=== PATIENT | female | born 1945 | race Caucasian/White ===

== ENCOUNTER → 2018-03-24 01:41 | Outpatient (CLI) | payer MEDICARE, MEDICAID, SELFPAY ==
--- NOTE | 2018-03-24 14:33 | DI.REPORT_ITS ---
SYMPTOMS/DIAGNOSIS: RT KNEE PAIN, ? MENISCUS TEAR MRI OF THE RIGHT KNEE: Comparison is made with plain films dated . Fat suppressed T 2 axial, proton density and fat suppressed T 2 sagittal and coronal and proton density oblique sagittal sequences were performed. The cruciate ligaments appear intact. There is some fluid around the lateral collateral ligaments but no evidence of a tear. The medial collateral ligament appears intact. There is some fluid anterior to the patellar tendon but no evidence of a tendon abnormality. There is a small joint effusion. The medial meniscus shows mild degenerative signal changes. There is abnormal high signal in the posterior horn and body of the lateral meniscus. A portion of the meniscus is not seen. There is an area of cartilage thinning and focal area of high signal in the lateral tibial plateau which may indicate a bone contusion vs degenerative change. No high signal is seen in the lateral femoral condyle. There is a small popliteal cyst. IMPRESSION: Tear of the posterior horn and body of the lateral meniscus. Probable focal bone contusion of the lateral tibial plateau.
== END ==
PROVIDERS: PCP Family Medicine; Visit Provider Orthopaedic Surgery
DX: M25.561 Pain in right knee (principal); S83.281A Other tear of lateral meniscus, current injury, right knee, initial encounter
CPT/HCPCS: 73721

== ENCOUNTER → 2018-04-07 14:30 | Outpatient (CLI) | payer MEDICARE, MEDICAID, SELFPAY | PROVIDERS: PCP Family Medicine; Visit Provider Psychiatry & Neurology Neurology | DX: G43.009 Migraine without aura, not intractable, without status migrainosus (principal); G35 Multiple sclerosis; E11.9 Type 2 diabetes mellitus without complications; Z79.84 Long term (current) use of oral hypoglycemic drugs | CPT/HCPCS: 99213 ==

== ENCOUNTER 2018-04-22 15:49 | Outpatient (CLI) | payer MEDICARE, MEDICAID, SELFPAY ==
--- NOTE | 2018-04-23 16:45 | DI.DEXA_ITS ---
SYMPTOM/DIAGNOSIS: OSTEOPOROSIS, M81.0 DEXA SCAN: Routine examination. The lateral image of the spine shows no compression deformities. Evaluation of the left hip shows a total T score of -2.0 and a Z score of -0.3, this is consistent with osteopenia and an increased fracture risk. This compares with a total T score of -3.2 from 2014. Evaluation of the lumbar spine shows a total T score of -1.9 and a Z score of 0.4. This is consistent with osteopenia and an increased fracture risk. This compares with a total T score of -3.2 from 2014. IMPRESSION: Osteopenia in the lumbar spine and left hip.
== END 2018-04-22 16:09 ==
PROVIDERS: PCP Family Medicine; Visit Provider Family Medicine
DX: M85.88 Other specified disorders of bone density and structure, other site (principal)
CPT/HCPCS: 77080

== ENCOUNTER 2018-05-05 08:55 | Outpatient (CLI) | payer MEDICARE, MEDICAID, SELFPAY | END 2018-05-05 09:15 | PROVIDERS: PCP Family Medicine; Visit Provider Orthopaedic Surgery | DX: M25.561 Pain in right knee (principal); S83.281A Other tear of lateral meniscus, current injury, right knee, initial encounter; G35 Multiple sclerosis; Z01.818 Encounter for other preprocedural examination ==

== ENCOUNTER 2018-05-07 06:13 | Day surgery (SDC) | payer MEDICARE, MEDICAID, SELFPAY ==
--- NOTE | 2018-05-05 11:37 | W.PREOPHP ---
Date of service: 05/05/18 Time of Service: 10:00 Assessment and Plan (1) History of bowel resection: Current visit: Yes Status: Acute (2) Tenosynovitis, de Quervain: Current visit: Yes Status: Acute (3) H/O hemorrhoidectomy: Current visit: Yes Status: Chronic (4) Hx of hysterectomy: Current visit: Yes Status: Chronic (5) History of repair of hiatal hernia: Current visit: Yes Status: Acute (6) History of cataract surgery: Current visit: Yes Status: Chronic (7) Right knee pain: Current visit: Yes Status: Acute Months of atraumatic right knee pain and swelling with MRI showing meniscal pathology. The patient is scheduled for right knee arthroscopy by Dr. Guzman on 05/07/2018. The anatomy operative procedure typical postop course and possible complications are reviewed with the patient and her caregiver Kiana today all questions are answered. History of Present Illness Chief Complaint: right knee pain Narrative: 72-year-old female with secondary progressive MS first diagnosed at age 50 presents with months of atraumatic knee pain. She localizes the pain to the posterior lateral region of her knee. She complains of swelling about her knee. She has been wheelchair-bound when she leaves her apartment since 2009. She does take a few steps around her apartment using a walker worried about her knee catching and falling. Her caregiver Kiana relates Jolanta has had swelling in her knee since September. She did receive a Depo-Medrol injection on 10/31/2017 which only provided temporary relief. Plain films have been done and these look benign. A follow-up MRI was interpreted by radiology as showing tear of the posterior horn of okay and body of her lateral meniscus along with a small joint effusion. The patient lists penicillin as an allergen but of note she has had cephalothin on 7616 as a preop antibiotic for de Quervain's tenosynovitis release without any issues or problems. With regard to her surgical procedure she relates no issues with anesthesia with respect to high fever difficulty vomiting or prolonged waking. Pertinent Surgical Information Review of Systems ENT Reports system reviewed and no additional complaints, except as docu Cardiovascular Denies chest pain, Denies chest pain with activity, Denies rapid heart rate, Denies irregular heart rhythm, Reports leg edema and Denies paroxysmal nocturnal dyspnea Respiratory Denies cough and Denies pain on inspiration Gastrointestinal Reports system reviewed and no additional complaints, except as docu, Denies abdominal pain and Denies hematemesis Musculoskeletal Reports joint swelling PFSH Social History Smoking/Tobacco Use Status: Current every day Surgical History History of bowel resection (Acute) History of repair of hiatal hernia (Acute) Tenosynovitis, de Quervain (Acute) H/O hemorrhoidectomy (Chronic) History of cataract surgery (Chronic) Hx of hysterectomy (Chronic) Meds Home Medications Medication Instructions Recorded Confirmed Type estradiol [Vagifem] 10 mcg VG as directed #30 tab 04/25/16 05/05/18 History fluconazole 150 mg PO ONCE PRN #6 tab-cap 04/25/16 05/05/18 History usioifvabobz-ieqvmsta-cvdpoz 1 ea PO DAILY #90 tab-cap 04/29/17 05/05/18 Rx [Vision Plus Lutein Vitamin Tab] omeprazole 20 mg PO BID #180 tab-cap 06/03/17 05/05/18 Rx calcium carbonate-vitamin D3 1 ea PO BID #60 tab-cap 07/22/17 05/05/18 Rx [Calcium 600-Vit D3 400 Tablet] alendronate 1 tab PO weekly #12 tab 09/11/17 05/05/18 Rx cyanocobalamin (vitamin B-12) 1,000 mcg IJ monthly #2 vial 10/28/17 05/05/18 Rx ferrous sulfate 325 mg PO DAILY #90 tab-cap 11/01/17 05/05/18 Rx amitriptyline 100 mg PO HS #30 tab-cap 11/11/17 05/05/18 Rx cholecalciferol (vitamin D3) 2,000 unit PO DAILY #90 tab-cap 02/17/18 05/05/18 Rx meloxicam 7.5 mg PO DAILY #30 tab-cap 02/21/18 05/05/18 Rx potassium chloride 20 meq PO DAILY #90 tab 03/07/18 05/05/18 Rx magnesium oxide 400 mg PO BID #180 tab-cap 03/17/18 05/05/18 Rx simvastatin 80 mg PO DAILY #90 tab-cap 04/06/18 05/05/18 Rx gabapentin 300 mg PO TID #270 tab-cap 04/07/18 05/05/18 Rx hydroxyzine HCl 1 - 2 tab PO DIRECTED PRN 05/05/18 05/05/18 History metformin 2 tab PO QAM 05/05/18 05/05/18 History metformin 500 mg PO QPM 05/05/18 05/05/18 History Allergies Allergy/AdvReac Type Severity Reaction Status Date / Time miconazole Allergy Skin Rash Unverified 05/05/18 10:01 Penicillins Allergy Unverified 05/05/18 10:01 povidone-iodine Allergy Skin Rash Unverified 05/05/18 10:01 Sulfa (Sulfonamide Allergy Skin Rash Unverified 05/05/18 10:01 Antibiotics) Exam HENMT Ears: periauricular adenopathy Mouth: oral mucosae normal Extrem Other: Right knee shows right knee exam shows scant effusion. She has diffuse tenderness about her knee especially posterior laterally there is no gross ligamentous laxity. No Villalobos's cyst is palpable. She has tenderness to light palpation about both her medial lateral joint line. She does take a few very deliberate slow steps in the preop nurses office over to the scale. She has no block to full extension. Her flexion is intact to 80? her exam is all conducted with her sitting in a wheelchair.
[2018-05-07] VITALS (11 sets, daily range): BP systolic 127–157; BP diastolic 39–89; PULSE 85–96; RESP 13–20; TEMP 36.1–37.1; O2SAT 93–96
[2018-05-07] MEDS: Lactated Ringers 1,000 ML 80 ML IV ×2 (06:59→09:32)
[2018-05-07] MEDS: Bupivacaine 0.25% Pres-Free 30 ML VIAL (09:03)
[2018-05-07] MEDS: fentaNYL 100 MCG/2 ML VIAL IVP ×2 (09:30→10:00)
--- NOTE | 2018-05-07 09:39 | W.PM.DSUDISC ---
Discharge Plan Disposition Patient Disposition: HOME Condition: Improving Discharge Details Attending Provider: Joselito Guzman Primary Care Provider: Gris Bates Home Meds and New Rx's Prescriptions: No Action fluconazole 150 MG tablet 150 mg PO ONCE PRNQty: 6 RF: 2 estradiol [Vagifem] 10 MCG tablet 10 mcg VG as directed Qty: 30 RF: 6 xotisiarhoel-rbfuwhvl-aucrxk [Vision Plus Lutein] 1 EACH tablet 1 ea PO DAILY Qty: 90 RF: 4 omeprazole 20 MG capsule,delayed release(DR/EC) 20 mg PO BID Qty: 180 RF: 4 calcium carbonate-vitamin D3 [Calcium 600 + D(3)] 1 EACH tablet 1 ea PO BID Qty: 60 RF: 11 alendronate 70 MG tablet 1 tab PO weekly Qty: 12 RF: 4 cyanocobalamin (vitamin B-12) 1,000 MCG/1 ML solution 1,000 mcg IJ monthly Qty: 2 RF: 6 ferrous sulfate 325 MG tablet 325 mg PO DAILY Qty: 90 RF: 3 amitriptyline 100 MG tablet 100 mg PO HS Qty: 30 RF: 5 cholecalciferol (vitamin D3) 1,000 UNIT tablet 2,000 unit PO DAILY Qty: 90 RF: 3 meloxicam 7.5 MG tablet 7.5 mg PO DAILY Qty: 30 RF: 2 potassium chloride 20 MEQ tablet extended release 20 meq PO DAILY Qty: 90 RF: 2 magnesium oxide 400 MG tablet 400 mg PO BID Qty: 180 RF: 2 simvastatin 80 MG tablet 80 mg PO DAILY Qty: 90 RF: 4 gabapentin 300 MG capsule 300 mg PO TID Qty: 270 RF: 3 hydroxyzine HCl 25 MG tablet 1 - 2 tab PO DIRECTED PRNRF: 0 metformin 500 MG tablet,ER melissa.retention 24 hr 2 tab PO QAM RF: 0 metformin 500 mg Tablet Extended Release 24 Hr 500 mg PO QPM RF: 0 Discharge Instructions Instructions: Knee Immobilizer (GEN) Additional Instructions: Try to keep your right knee elevated above heart level as much as possible for the next 48 hours. You may walk on your knee to eat or to go to the bathroom, but for the next 48 hours try to maximize elevation. Use your cryocuff to help minimize pain and swelling. You may loosen your cryocuff, knee immobilizer, or underlying yosef bandages if they feel too tight. Expect some bloody drainage on the underlying gauze bandages. On 05/09/18, you may remove all of your bandages and get your knee wet in the shower with soap and water. Gently pat the stitches dry and cover them with bandaids. Continue to use your cryocuff for pain and swelling. Resume activities as tolerated. You only need to use your knee immobilizer for discomfort for the next 2-3 days. You may then go without it. Take your usual medications as before. take tylenol, advil or aleve for milder pain. Tylenol may be taken at the same time as Aleve or at the same time as Advil as they are metabolized differently and are not cross toxic. Take norco (hydrocodone 5/325mg) 1-2 every 4 hours for more serious pain. [facility] [place] amount [place]co that can be prescribed to 18 tablets. Follow-up with dr. guzman in 10-12 days for stitch removal and review of arthroscopic findings. Equipment/Supplies: Splint Activity:: Elevate Remove Dressings/Wound Care:: 48 hours Shower/Bathe:: 48 hours Diet:: Carb Counting Discharge Orders Discharge Orders: Discharge Order (Routine); Ordered 05/07/18 Ordered By: Joselito Guzman DS: Diagnosis Discharge Diagnosis (1) History of bowel resection: Status: Acute (2) Tenosynovitis, de Quervain: Status: Acute (3) H/O hemorrhoidectomy: Status: Chronic (4) Hx of hysterectomy: Status: Chronic (5) History of repair of hiatal hernia: Status: Acute (6) History of cataract surgery: Status: Chronic (7) Right knee pain: Status: Acute
[2018-05-07] MEDS: HYDROmorphone 2 MG/ML VIAL IVP (09:40)
--- NOTE | 2018-05-07 09:57 | ROE_ITS ---
REPORT OF OPERATIVE PROCEDURE DATE OF SURGERY May 07, 2018 PREOPERATIVE DIAGNOSES 1. Complex tear of the lateral meniscus right knee. 2. 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 POSTOPERATIVE DIAGNOSES 1. Complex tear of the lateral meniscus right knee. 2. 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 PROCEDURES 1. Arthroscopy right knee with partial lateral meniscectomy. 2. Limited chondroplasty lateral femoral condyle. SURGEON Joselito Guzman M.D. ASSESSMENT Nurse. ANESTHETIC General, via LMA by Zak Jackson CRNA. INDICATIONS This patient is a 72-year-old female with history of multiple sclerosis. Because of this condition, s he is minimally ambulatory. However, she has had recalcitrant pain in her right knee, which makes it difficult for her to transfer for toileting or for getting in and out of bed. I treated her initiall y conservatively as radiographs were essentially unremarkable for her age. However, even corticostero id injection was of no benefit to her right knee pain. An MRI confirmed a lateral meniscus tear and b one marrow edema of the lateral tibial plateau. I recommended arthroscopy to try to manage this intr aarticular derangement conservatively. I felt that because the relatively minimal dependence she has on her right knee for her activities of daily living, as she spends a significant part of her day in a wheelchair, would probably not require a total knee arthroplasty, based on the demands on the knee. The risks and benefits were discussed and she understood and wished to proceed. The patient was greeted in the Day Surgery holding area. Her right leg was marked with a sterile patricia er. DESCRIPTION OF PROCEDURE The patient was taken to the Operating Suite. A time-out was instituted confirming the patient's neda rgies, diagnoses, and treatment plan. She was given 2 grams of Ancef as a prophylactic antibiotic. Th e right lower extremity was prepped in its entirety from the toes to the groin. A pneumatic tournique t was applied to the proximal thigh, but was not inflated during the case. The right thigh was placed in an Instrument-Maker thigh-holding device. The arthroscope was inserted through an anterolateral portal. Inflow was provided through the scope. Pressure monitoring and outflow was placed superolaterally. Instrumentation was accomplished anterome dially. beginning with the medial compartment, the patient had an intact medial meniscus with slight fraying of its inner margin, but no perla tears. The articular cartilage looked good. The ACL was in tact. The lateral compartment showed evidence of loss of articular cartilage mainly on the tibial shayne teau. The lateral femoral condyle was intact. There was a complete disruption of the lateral meniscus with a tear right at the popliteus hiatus. Because of this, there was a large posterior medial fragm ent of the lateral meniscus, which was freely moving and significant tearing of the anterolateral por tion of the lateral meniscus. First, beginning with basket forceps, and then using the ArthroCare pro bes with both the 50-degree and 90-degree head, I was able to perform resection of the lateral menisc us. Most of the lateral meniscus posterior and medial to the popliteus tendon was resected. The remai joshua lateral meniscus was stable. The knee was carefully irrigated. The patellofemoral joint was iden tified and showed appropriate chondromalacia for the patient's age, but no gross abnormalities. No lo ose bodies or foreign bodies were found. The knee was then irrigated with several thousand cc of sali ne. The portals were closed with sutures of 4-0 Ethilon in a horizontal mattress fashion. The knee wa s injected with 20 cc of 0.5% Marcaine plain. The wound was dressed with Xeroform gauze, 4x4s, ABD pa d, followed by two 6-inch Josue wraps, a Cryo/Cuff and a commercial knee immobilizer. The patient was t aken to the Recovery Room in satisfactory condition tolerating the procedure well.
[2018-05-07] MEDS: HYDROcodone 5/Acetaminophen 325 TAB PO (12:33)
[2018-05-07] MEDS: Ondansetron O.D.T. 4 MG TABEF PO (13:36)
[2018-05-07] MEDS: Normal Saline Flush 10 ML SYR IV (14:00)
== END 2018-05-07 13:57 | disposition home or self-care (01) ==
PROVIDERS: PCP Family Medicine; Visit Provider Orthopaedic Surgery
PROC: (CPT 29870; principal; 2018-05-07 07:30)
DX: M23.261 Derangement of other lateral meniscus due to old tear or injury, right knee (principal); M17.11 Unilateral primary osteoarthritis, right knee; M89.9 Disorder of bone, unspecified; G35 Multiple sclerosis; K21.9 Gastro-esophageal reflux disease without esophagitis
CPT/HCPCS: 29881; J0131; J0690; J1100; J1885; J2405; J3010; L1830

== ENCOUNTER → 2018-05-07 08:46 | Outpatient (BNVA) | payer MEDICARE, MEDICAID, SELFPAY | PROVIDERS: PCP Family Medicine; Referring Provider Family Medicine; Visit Provider Orthopaedic Surgery | DX: R69 Illness, unspecified (principal) ==

== ENCOUNTER → 2018-05-19 10:14 | Outpatient (BNVA) | payer MEDICARE, MEDICAID, SELFPAY | PROVIDERS: PCP Family Medicine; Referring Provider Family Medicine; Visit Provider Orthopaedic Surgery | DX: Z47.89 Encounter for other orthopedic aftercare (principal); M17.11 Unilateral primary osteoarthritis, right knee; M23.261 Derangement of other lateral meniscus due to old tear or injury, right knee ==

== ENCOUNTER → 2018-06-05 14:40 | Outpatient (BNVA) | payer MEDICARE, MEDICAID, SELFPAY | PROVIDERS: PCP Family Medicine; Visit Provider Psychiatry & Neurology Neurology | DX: G35 Multiple sclerosis (principal); G43.009 Migraine without aura, not intractable, without status migrainosus; E11.9 Type 2 diabetes mellitus without complications; Z79.84 Long term (current) use of oral hypoglycemic drugs | CPT/HCPCS: 99214 ==

== ENCOUNTER 2018-06-07 16:04 | Emergency (ER) | payer MEDICARE, MEDICAID, SELFPAY ==
[2018-06-07] VITALS (18 sets, daily range): BP systolic 141; BP diastolic 83; PULSE 96–121; RESP 14–35; TEMP 36.3; O2SAT 90–96
[2018-06-07] MEDS: Normal Saline 1,000 ML 1000 ML IV (16:02)
[2018-06-07] MEDS: MORPHine 10 MG/ML VIAL 4 MG IVP (16:04)
[2018-06-07] MEDS: Ondansetron 4 MG/2 ML VIAL (16:05)
[2018-06-07 16:08] LABS: Abs Immature Grans 0.03 k/cumm (0.0-0.09); Absolute Basophil Count 0.06 k/cumm (0.0-0.2); Absolute Eosinophil Count 0.13 k/cumm (0.0-0.7); Absolute Lymphocyte Count 1.91 k/cumm (1.2-3.4); Absolute Monocyte Count 0.61 k/cumm (0.11-0.7); Absolute Neutrophil Count 8.63 k/cumm (1.2-6.7); Basophils % 0.5; Eosinophils % 1.1; HCT 43.4 % (36.0-46.0); HGB 13.4 g/dL (12.0-15.5); Immature Grans % 0.3; Lymphocytes % 16.8; Mean Corp. HGB Concentration 30.9 g/dL (32.0-36.0); Mean Corpuscular Hemoglobin 30.4 pg (27.0-33.0); Mean Corpuscular Volume 98.4 fL (80-95); Mean Platelet Volume 9.7 fL (8.0-11.0); Monocytes % 5.4; Neutrophils % 75.9; Platelet Count 240 x1000/uL (130-400); RBC 4.41 m/cumm (4.00-5.20); RBC Distribution Width 14.9 % (11.7-14.6); White Blood Cell Count 11.37 k/cumm (4.4-10.8)
--- NOTE | 2018-06-07 16:08 | DI.CT_ITS ---
SYMPTOM/DIAGNOSIS: NOTABLE ABD DISTENSION ABDOMEN AND PELVIC CT: CT scan of the abdomen and pelvis was performed without intravenous or oral contrast. Comparison examinations are 12/24/14 and 11/24/10. Findings: Emphysematous changes are seen in the lung bases. There is a small pericardial effusion. The lack of IV contrast does limit evaluation of the abdominal and pelvic organs. There is diffuse decreased attenuation of the liver consistent with hepatic steatosis. The liver is enlarged. No discrete hepatic mass is seen. The spleen, gallbladder, bile ducts and pancreas are unremarkable. There are again seen bilateral adrenal nodules consistent with adenomas. These are stable compared to examinations dating back to 2010. The kidneys show no evidence of nephrolithiasis or hydronephrosis. The urinary bladder is intact. The reproductive organs are grossly unremarkable as visualized. The abdominal aorta shows atherosclerosis. No aneurysmal dilatation is present. Note is made of a retro-aortic left renal vein. No significant abdominal or pelvic adenopathy, ascites or pneumoperitoneum is present. There is diverticulosis of the descending and sigmoid colon but no acute diverticulitis is present. No findings to suggest an acute appendicitis are present. There is dilatation of the stomach and small bowel. There is a normal caliber distal small bowel with a transition being in the right lower quadrant. The colon is of normal caliber. The findings raise the question of a small bowel obstruction. Ileus cannot be excluded. There are degenerative changes seen in the spine. There is a bone island again seen in the sacrum which is unchanged dating back to 2010. Suture material is seen in the distal small bowel in the right lower quadrant. IMPRESSION: Dilatation of the stomach and small bowel to the level of the distal small bowel. The findings are suspicious for a small bowel obstruction. Ileus cannot be excluded. The transition appears to lie in the right lower quadrant.
--- NOTE | 2018-06-07 16:09 | W.ED.GENAD ---
Discharge Plan Disposition Patient Disposition: [facility] Condition: Stable Discharge Details Chief Complaint: Abd Prob Clinical Impression: Small bowel obstruction Reason For Visit: JEANNE Primary Care Provider: Gris Bates ED Provider: Robel Powers Home Meds and New Rx's Prescriptions: No Action mirtazapine 7.5 mg tablet 7.5 mg PO DAILY Qty: 30 RF: 0 fluconazole 150 MG tablet 150 mg PO ONCE PRNQty: 6 RF: 2 estradiol [Vagifem] 10 MCG tablet 10 mcg VG as directed Qty: 30 RF: 6 vyubwgprqzkf-jgyklwdu-jzxiad [Vision Plus Lutein] 1 EACH tablet 1 ea PO DAILY Qty: 90 RF: 4 omeprazole 20 MG capsule,delayed release(DR/EC) 20 mg PO BID Qty: 180 RF: 4 calcium carbonate-vitamin D3 [Calcium 600 + D(3)] 1 EACH tablet 1 ea PO BID Qty: 60 RF: 11 alendronate 70 MG tablet 1 tab PO weekly Qty: 12 RF: 4 cyanocobalamin (vitamin B-12) 1,000 MCG/1 ML solution 1,000 mcg IJ monthly Qty: 2 RF: 6 ferrous sulfate 325 MG tablet 325 mg PO DAILY Qty: 90 RF: 3 amitriptyline 100 MG tablet 100 mg PO HS Qty: 30 RF: 5 cholecalciferol (vitamin D3) 1,000 UNIT tablet 2,000 unit PO DAILY Qty: 90 RF: 3 potassium chloride 20 MEQ tablet extended release 20 meq PO DAILY Qty: 90 RF: 2 magnesium oxide 400 MG tablet 400 mg PO BID Qty: 180 RF: 2 simvastatin 80 MG tablet 80 mg PO DAILY Qty: 90 RF: 4 gabapentin 300 MG capsule 300 mg PO TID Qty: 270 RF: 3 meloxicam 7.5 mg tablet 7.5 mg PO DAILY Qty: 30 RF: 3 hydroxyzine HCl 25 MG tablet 1 - 2 tab PO DIRECTED PRNRF: 0 metformin 500 MG tablet,ER melissa.retention 24 hr 2 tab PO QAM RF: 0 Medical Decision Making This is a pleasant 72-year-old female with a past medical history of bowel obstruction, previous abdominal surgeries, who presents today for abdominal distention and abdominal pain. She states that roughly 3-4 hours ago she had a sudden onset abdominal pain and subsequent distention. She has felt nauseous but has been unable to vomit. She has been unable to vomit even when she is trying to gag herself. She has been having regular bowel movements both today and yesterday. Physical exam demonstrates a notably distended tense abdomen. Differential is concerning for small bowel obstruction versus toxic megacolon versus volvulus. We will get a CT scan for further evaluation. We did consider doing a CT scan with oral contrast however the patient soon as she got here has been vomiting whenever she tries to take anything p.o. additionally she has an allergy to iodine, and I feel that utilizing CT scan with IV contrast would be unwise. 5:[address] results demonstrate evidence of a notably distended abdomen, multiple dilated loops in the small bowel with transition point in the right abdomen, distal small bowel is normal in caliber. This may represent ileus or SBO. Patient's laboratory workup has returned and demonstrates evidence of an notably elevated lipase at 4000, white count of 11.37, mild tachycardia, normal blood pressure, afebrile. Bilirubin is normal, AST and ALT are minimally elevated at 61 and 80 respectively, alk phos is 131, bilirubin is 0.2. We did contact Dr. Sanders the surgeon digital content manager for [facility], discussed the case with her. I brought up the potential for gallstone ileus, and she feels that this is unlikely secondary to the normal bilirubin and negative CT scan findings. We do not have any beds available at this time, she recommended transfer to a local hospital. I did contact Dr. Beal at [facility], and discussed the case with her. She agreed with the assessment and plan, as well as availability for transfer. Nasogastric tube was placed, and the patient tolerated this well. Air was auscultated going into the stomach. Patient will be transferred via calyx. I have extensively reviewed the treatment plan with the patient. I have addressed all patient concerns at this time. I have also discussed the plan with the admitting physician and they agree with the current assessment and plan and have agreed to assume responsibility for the patient. All parties demonstrate verbal understanding and agreement with our assessment and plan at this time. FINDINGS: Lower thorax: Small pericardial effusion ABDOMEN: Liver: Hepatic steatosis Gallbladder and bile ducts: Normal. No calcified stones. No ductal dilation. Pancreas: Normal. No ductal dilation. Spleen: Normal. No splenomegaly. Adrenals: Left adrenal adenoma -19 Hounsfield units. Right adrenal adenoma -13 Hounsfield units Kidneys and ureters: Normal. No hydronephrosis. Stomach and bowel: Grossly distended stomach. Dilatation of the duodenum There are multiple loops of dilated small bowel with air-fluid levels. Transition point in the right abdomen (3:52-60) Distal small bowel is normal in caliber. Sutures in the distal small bowel. This may represent ileus or small bowel obstruction. Diverticulosis of the rectosigmoid. No perla diverticulitis. Appendix: No evidence of appendicitis. PELVIS: Bladder: Unremarkable as visualized. Reproductive: Hysterectomy ABDOMEN and PELVIS: Intraperitoneal space: Normal. No free air. No significant fluid collection. Bones/joints: 7 mm sclerotic density noted in the sacrum, compatible with bone island (enostosis) in patient without history of neoplastic disease. Nuclear medicine bone scan may be useful for further evaluation if clinically indicated. Soft tissues: Unremarkable. Vasculature: Normal. No abdominal aortic aneurysm. Lymph nodes: Normal. No enlarged lymph nodes. IMPRESSION: Grossly distended stomach. Dilatation of the duodenum There are multiple loops of dilated small bowel with air-fluid levels. Transition point in the right abdomen (3:52-60) Distal small bowel is normal in caliber. Sutures in the distal small bowel. This may represent ileus or small bowel obstruction. HPI General Date/Time Provider Initiated Documentation: 06/07/18 16:07. HPI Narrative: This is a 72-year-old female with a past medical history of abdominal obstructions, type 2 diabetes, hyperlipidemia, irritable bowel syndrome, kidney stones, previous abdominal surgeries for large bowel obstruction, hysterectomy, cataract surgery, who presents today for abdominal pain. Patient states that 3 hours prior to arrival she had notable swelling in her anterior abdomen and severe abdominal pain. She describes it as achy and cramping in nature. She last ate early this morning when she states she ate a large piece of pizza. Since then she has had distention, nausea, abdominal pain. She has been having regular bowel movements yesterday and today, but denies any vomiting. Her nausea is continuous, and she is tried to make herself gag but she has been unable to self expectorate. She denies any hematemesis, hematochezia, melena, acholic stool. She denies any chest pain, arm pain, neck pain or shoulder pain. She denies any recent abdominal trauma. She does admit to regular burping. Related Data Home Medications Medication Instructions Recorded Confirmed estradiol [Vagifem] 10 mcg VG as directed #30 tab 04/25/16 06/07/18 fluconazole 150 mg PO ONCE PRN #6 tab-cap 04/25/16 06/07/18 icmxdlewteza-tvwqefbg-zhufeg 1 ea PO DAILY #90 tab-cap 04/29/17 06/07/18 [Vision Plus Lutein Vitamin Tab] omeprazole 20 mg PO BID #180 tab-cap 06/03/17 06/07/18 calcium carbonate-vitamin D3 1 ea PO BID #60 tab-cap 07/22/17 06/07/18 [Calcium 600-Vit D3 400 Tablet] alendronate 1 tab PO weekly #12 tab 09/11/17 06/07/18 cyanocobalamin (vitamin B-12) 1,000 mcg IJ monthly #2 vial 10/28/17 06/07/18 ferrous sulfate 325 mg PO DAILY #90 tab-cap 11/01/17 06/07/18 amitriptyline 100 mg PO HS #30 tab-cap 11/11/17 06/07/18 cholecalciferol (vitamin D3) 2,000 unit PO DAILY #90 tab-cap 02/17/18 06/07/18 potassium chloride 20 meq PO DAILY #90 tab 03/07/18 06/07/18 magnesium oxide 400 mg PO BID #180 tab-cap 03/17/18 06/07/18 simvastatin 80 mg PO DAILY #90 tab-cap 04/06/18 06/07/18 gabapentin 300 mg PO TID #270 tab-cap 04/07/18 06/07/18 hydroxyzine HCl 1 - 2 tab PO DIRECTED PRN 05/05/18 06/07/18 metformin 2 tab PO QAM 05/05/18 06/07/18 meloxicam 7.5 mg tablet 7.5 mg PO DAILY #30 tab-cap 05/23/18 06/07/18 mirtazapine 7.5 mg tablet 7.5 mg PO DAILY #30 tab 06/04/18 06/07/18 Previous Rx's Medication Instructions Recorded vacmttdbfhcg-sebnezpf-thjdvu 1 ea PO DAILY #90 tab-cap 04/29/17 [Vision Plus Lutein Vitamin Tab] omeprazole 20 mg PO BID #180 tab-cap 06/03/17 calcium carbonate-vitamin D3 1 ea PO BID #60 tab-cap 07/22/17 [Calcium 600-Vit D3 400 Tablet] alendronate 1 tab PO weekly #12 tab 09/11/17 cyanocobalamin (vitamin B-12) 1,000 mcg IJ monthly #2 vial 10/28/17 ferrous sulfate 325 mg PO DAILY #90 tab-cap 11/01/17 amitriptyline 100 mg PO HS #30 tab-cap 11/11/17 cholecalciferol (vitamin D3) 2,000 unit PO DAILY #90 tab-cap 02/17/18 potassium chloride 20 meq PO DAILY #90 tab 03/07/18 magnesium oxide 400 mg PO BID #180 tab-cap 03/17/18 simvastatin 80 mg PO DAILY #90 tab-cap 04/06/18 gabapentin 300 mg PO TID #270 tab-cap 04/07/18 meloxicam 7.5 mg tablet 7.5 mg PO DAILY #30 tab-cap 05/23/18 mirtazapine 7.5 mg tablet 7.5 mg PO DAILY #30 tab 06/04/18 Allergies Allergy/AdvReac Type Severity Reaction Status Date / Time miconazole Allergy Skin Rash Unverified 06/05/18 15:04 Penicillins Allergy Unverified 06/05/18 15:04 povidone-iodine Allergy Skin Rash Unverified 06/05/18 15:04 Sulfa (Sulfonamide Allergy Skin Rash Unverified 06/05/18 15:04 Antibiotics) General Stated Complaint: Abd Prob FRANCIS: 3 Review of Systems Review of Systems All systems reviewed & are unremarkable except as noted in HPI and below PFSH Social History Smoking/Tobacco Use Status: Former Tobacco Use Surgical History History of bowel resection (Acute) History of repair of hiatal hernia (Acute) Tenosynovitis, de Quervain (Acute) H/O hemorrhoidectomy (Chronic) History of cataract surgery (Chronic) Hx of hysterectomy (Chronic) Exam Narrative Exam Narrative: 1.Const: Well-nourished, Well-developed, appearing stated age 2.Eyes: PERRL, no conjunctival injection, and symmetrical lids. 3.ENT: Atraumatic external nose and ears. Dry MM. Neck: Symmetric, trachea midline, No thyromegaly. 4.CVS: +S1/S2, No murmurs or gallops. Peripheral pulses 2+ and equal in all extremities. Brisk capillary refill in all extremities. 5.RESP: Unlabored respiratory effort. Clear to auscultation bilaterally. No wheezes rales or rhonchi 6.GI: Abdomen is distended and noticeably tense. Bowel sounds are present and hypertympanic. Mild tenderness throughout. No subcutaneous crepitus. 7.MSK: Normocephalic/Atraumatic, Extremities w/o deformity or ttp No cyanosis or clubbing, Normal movement of all extremities 8.Skin: Warm, Dry. No rashes or lesions. 9.Neuro: lean six sigma black belt II-XII grossly intact. Sensation grossly intact, no focal neurologic deficits. 10.Psych: (AAO) x3. Appropriate mood and affect Course Vital Signs Temperature 36.3 C L 06/07/18 15:46 Pulse 108 H 06/07/18 15:46 Respiratory Rate 24 06/07/18 15:46 Blood Pressure 141/83 H 06/07/18 15:46 Pulse Oximetry 96 06/07/18 15:46 Temperature 36.3 C L 06/07/18 15:46 Temperature Source Temporal Artery Scan 06/07/18 15:46 Pulse 108 H 06/07/18 15:46 Respiratory Rate 24 06/07/18 15:46 Blood Pressure 141/83 H 06/07/18 15:46 Pulse Oximetry 96 06/07/18 15:46 Oxygen Delivery Method Room Air 06/07/18 15:46 Oxygen Flow Rate 0 06/07/18 15:46 Pain Level 10 06/07/18 16:05 Lab/Test Results Lab/Test Results: Laboratory Tests Range/Units 06/07/18 15:50 WBC (4.4-10.8) k/cumm 11.37 H RBC (4.00-5.20) m/cumm 4.41 Hgb (12.0-15.5) g/dL 13.4 Hct (36.0-46.0) % 43.4 MCV (80-95) fL 98.4 H MCH (27.0-33.0) pg 30.4 MCHC (32.0-36.0) g/dL 30.9 L RDW (11.7-14.6) % 14.9 H Plt Count (130-400) x1000/uL 240 MPV (8.0-11.0) fL 9.7 Immature Gran % 0.3 Neutrophils % 75.9 Lymphocytes % 16.8 Monocytes % 5.4 Eosinophils % 1.1 Basophils % 0.5 Absolute Neutrophils (1.2-6.7) k/cumm 8.63 H Absolute Lymphocytes (1.2-3.4) k/cumm 1.91 Absolute Monocytes (0.11-0.7) k/cumm 0.61 Absolute Eosinophils (0.0-0.7) k/cumm 0.13 Absolute Basophils (0.0-0.2) k/cumm 0.06
[2018-06-07 16:21] LABS: ALT 80 U/L (12-78); AST 61 U/L (15-37); Albumin 3.9 g/dL (3.4-5.0); Alkaline Phosphatase 131 U/L (46-116); Anion Gap 13.9 mmol/L (3-11); BUN 13 mg/dL (7-18); Bilirubin, Total 0.2 mg/dL (0.2-1.0); CO2 23.1 mmol/L (21.0-32.0); CREATININE 1.26 mg/dL (0.55-1.02); Calcium 9.7 mg/dL (8.5-10.1); Chloride 100 mmol/L (98-107); Estimated GFR 41.74 (mL/min/1.73m2); Glucose 243 mg/dL (70-100); Potassium 4.7 mmol/L (3.5-5.1); Sodium 137 mmol/L (136-145); Total Protein 7.9 g/dL (6.4-8.2)
[2018-06-07 16:22] LABS: INR 0.9 (1.0-3.5); PTT Activated 21.8 sec (21.0-31.4); Prothrombin Time 9.2 sec (9.3-10.8)
[2018-06-07] MEDS: MORPHine 10 MG/ML VIAL (16:29)
[2018-06-07] MEDS: Ondansetron 4 MG/2 ML VIAL IVP (16:55)
--- NOTE | 2018-06-07 16:55 | DI.VRAD_ITS ---
EXAM: CT Abdomen and Pelvis Without Intravenous Contrast EXAM DATE/TIME: 06/07/2018 4:09 PM CLINICAL HISTORY: 72 years old, female; Signs and symptoms; Bloating; Patient HX: Abdominal distension TECHNIQUE: Axial computed tomography images of the abdomen and pelvis without intravenous contrast. Coronal and sagittal reformatted images were created and reviewed. COMPARISON: CT ABD PELVIS WITH CONTRAST 01/19/2012 8:58 PM FINDINGS: Lower thorax: Small pericardial effusion ABDOMEN: Liver: Hepatic steatosis Gallbladder and bile ducts: Normal. No calcified stones. No ductal dilation. Pancreas: Normal. No ductal dilation. Spleen: Normal. No splenomegaly. Adrenals: Left adrenal adenoma -19 Hounsfield units. Right adrenal adenoma -13 Hounsfield units Kidneys and ureters: Normal. No hydronephrosis. Stomach and bowel: Grossly distended stomach. Dilatation of the duodenum There are multiple loops of dilated small bowel with air-fluid levels. Transition point in the right abdomen (3:52-60) Distal small bowel is normal in caliber. Sutures in the distal small bowel. This may represent ileus or small bowel obstruction. Diverticulosis of the rectosigmoid. No perla diverticulitis. Appendix: No evidence of appendicitis. PELVIS: Bladder: Unremarkable as visualized. Reproductive: Hysterectomy ABDOMEN and PELVIS: Intraperitoneal space: Normal. No free air. No significant fluid collection. Bones/joints: 7 mm sclerotic density noted in the sacrum, compatible with bone island (enostosis) in patient without history of neoplastic disease. Nuclear medicine bone scan may be useful for further evaluation if clinically indicated. Soft tissues: Unremarkable. Vasculature: Normal. No abdominal aortic aneurysm. Lymph nodes: Normal. No enlarged lymph nodes. IMPRESSION: Grossly distended stomach. Dilatation of the duodenum There are multiple loops of dilated small bowel with air-fluid levels. Transition point in the right abdomen (3:52-60) Distal small bowel is normal in caliber. Sutures in the distal small bowel. This may represent ileus or small bowel obstruction. Dictated and Authenticated by: Marcelo Lopez MD. Ordering:JESSICA THRASHER MD
[2018-06-07 17:00] LABS: Lipase 5570 U/L (73-393)
[2018-06-07] MEDS: Benzocaine 20% 60 ML CAN (17:37)
[2018-06-07] MEDS: Lidocaine 2% Viscous 15 ML CUP (17:37)
== END 2018-06-07 18:43 | disposition short-term general hospital (02) ==
PROVIDERS: Emergency Provider Student in an Organized Health Care Education/Training Program; PCP Family Medicine
DX: K56.609 Unspecified intestinal obstruction, unspecified as to partial versus complete obstruction (principal); E11.9 Type 2 diabetes mellitus without complications; Z79.84 Long term (current) use of oral hypoglycemic drugs; G35 Multiple sclerosis
CPT/HCPCS: 36415; 80053; 83690; 86850; 86900; 86901; 96361; 96374; 96375; 96376; 99285; 74176; 85025; 85610; 85730; J2270; J2405

== ENCOUNTER → 2018-06-16 10:46 | Outpatient (BNVA) | payer MEDICARE, MEDICAID, SELFPAY | PROVIDERS: PCP Family Medicine; Referring Provider Family Medicine; Visit Provider Orthopaedic Surgery | DX: M23.261 Derangement of other lateral meniscus due to old tear or injury, right knee (principal); Z48.89 Encounter for other specified surgical aftercare; M17.11 Unilateral primary osteoarthritis, right knee | CPT/HCPCS: 20610; J3490 ==

== ENCOUNTER → 2018-08-18 13:54 | Outpatient (BNVA) | payer MEDICARE, MEDICAID, SELFPAY | PROVIDERS: PCP Family Medicine; Referring Provider Family Medicine; Visit Provider Orthopaedic Surgery | DX: Z47.89 Encounter for other orthopedic aftercare (principal); M17.11 Unilateral primary osteoarthritis, right knee | CPT/HCPCS: 99213 ==

== ENCOUNTER → 2018-08-25 12:36 | Outpatient (BNVA) | payer MEDICARE, MEDICAID, SELFPAY | PROVIDERS: PCP Family Medicine; Visit Provider Psychiatry & Neurology Neurology | DX: G35 Multiple sclerosis (principal); G43.009 Migraine without aura, not intractable, without status migrainosus; M25.561 Pain in right knee; E11.9 Type 2 diabetes mellitus without complications; Z79.84 Long term (current) use of oral hypoglycemic drugs; Z87.19 Personal history of other diseases of the digestive system | CPT/HCPCS: 99214 ==

== ENCOUNTER → 2018-10-02 11:15 | Outpatient (BNVA) | payer MEDICARE, MEDICAID, SELFPAY | PROVIDERS: PCP Family Medicine; Referring Provider Family Medicine; Visit Provider Orthopaedic Surgery | DX: M17.11 Unilateral primary osteoarthritis, right knee (principal) | CPT/HCPCS: 99211; 99213 ==

== ENCOUNTER 2018-10-22 12:27 | Outpatient (CLI) | payer MEDICARE, MEDICAID, SELFPAY ==
--- NOTE | 2018-10-22 11:20 | DI.RAD_ITS ---
SYMPTOM/DIAGNOSIS: PAIN RIGHT KNEE: The bony structures are normally mineralized. There is narrowing of the lateral tibiofemoral joint space and periarticular hypertrophic spurring is identified. SUMMARY: Findings consistent with moderate DJD.
== END 2018-10-22 12:47 ==
PROVIDERS: PCP Family Medicine; Referring Provider Orthopaedic Surgery; Visit Provider Orthopaedic Surgery
DX: M25.561 Pain in right knee (principal); M17.11 Unilateral primary osteoarthritis, right knee
CPT/HCPCS: 99201; 99213; 73560

== ENCOUNTER 2018-11-17 07:00 | Outpatient (CLI) | payer MEDICARE, MEDICAID, SELFPAY ==
--- NOTE | 2018-11-17 10:29 | DI.RAD_ITS ---
SYMPTOMS/DIAGNOSIS: CONSTIPATION, ABD PAIN FLAT AND UPRIGHT ABDOMEN: The visualized lung bases are clear. No organomegaly or bowel obstruction is seen. No pneumoperitoneum is present. There are mild degenerative changes seen in the spine. IMPRESSION: No evidence of an acute abdomen.
[2018-11-17 11:11] LABS: HCT 38.9 % (36.0-46.0); HGB 12.3 g/dL (12.0-15.5); Mean Corp. HGB Concentration 31.6 g/dL (32.0-36.0); Mean Corpuscular Hemoglobin 31.1 pg (27.0-33.0); Mean Corpuscular Volume 98.5 fL (80-95); Mean Platelet Volume 9.6 fL (8.0-11.0); Platelet Count 246 x1000/uL (130-400); RBC 3.95 m/cumm (4.00-5.20); RBC Distribution Width 14.3 % (11.7-14.6); White Blood Cell Count 6.45 k/cumm (4.4-10.8)
[2018-11-17 11:17] LABS: Hemoglobin A1C 7.9 % (4.5-6.2)
[2018-11-17 13:14] LABS: ALT 35 U/L (12-78); AST 15 U/L (15-37); Albumin 3.7 g/dL (3.4-5.0); Alkaline Phosphatase 111 U/L (46-116); Anion Gap 13.6 mmol/L (3-11); BUN 18 mg/dL (7-18); Bilirubin, Total 0.2 mg/dL (0.2-1.0); CO2 24.4 mmol/L (21.0-32.0); CREATININE 1.33 mg/dL (0.55-1.02); Calcium 9.6 mg/dL (8.5-10.1); Chloride 100 mmol/L (98-107); Cholesterol 171 mg/dL (50-200); Estimated GFR 39.11 (mL/min/1.73m2); Glucose 189 mg/dL (70-100); HDL Cholesterol 43 mg/dL (40-60); LDL CHOLESTEROL 82 mg/dL (<100); Magnesium 1.4 mg/dL (1.8-2.4); Potassium 4.4 mmol/L (3.5-5.1); Sodium 138 mmol/L (136-145); Total Protein 6.9 g/dL (6.4-8.2); Triglyceride 383 mg/dL (30-150); Vitamin B12 478 pg/mL (193-986)
== END 2018-11-17 07:20 ==
PROVIDERS: PCP Family Medicine; Visit Provider Family Medicine
DX: E78.5 Hyperlipidemia, unspecified (principal); E53.8 Deficiency of other specified B group vitamins; E83.42 Hypomagnesemia; R73.9 Hyperglycemia, unspecified; G35 Multiple sclerosis; R10.9 Unspecified abdominal pain; K59.00 Constipation, unspecified
CPT/HCPCS: 36415; 80053; 80061; 83721; 85027; 74019; 82607; 83036; 83735

== ENCOUNTER 2018-11-21 09:54 | Outpatient (CLI) | payer MEDICARE, MEDICAID, SELFPAY ==
[2018-11-21 11:17] LABS: Abs Immature Grans 0.02 k/cumm (0.0-0.09); Absolute Basophil Count 0.05 k/cumm (0.0-0.2); Absolute Eosinophil Count 0.13 k/cumm (0.0-0.7); Absolute Lymphocyte Count 2.59 k/cumm (1.2-3.4); Absolute Monocyte Count 0.45 k/cumm (0.11-0.7); Absolute Neutrophil Count 4.01 k/cumm (1.2-6.7); Basophils % 0.7; Eosinophils % 1.8; HCT 38.9 % (36.0-46.0); HGB 12.2 g/dL (12.0-15.5); Immature Grans % 0.3; Lymphocytes % 35.7; Mean Corp. HGB Concentration 31.4 g/dL (32.0-36.0); Mean Corpuscular Hemoglobin 30.7 pg (27.0-33.0); Mean Platelet Volume 9.4 fL (8.0-11.0); Monocytes % 6.2; Neutrophils % 55.3; Platelet Count 231 x1000/uL (130-400); RBC 3.97 m/cumm (4.00-5.20); RBC Distribution Width 14.5 % (11.7-14.6); White Blood Cell Count 7.25 k/cumm (4.4-10.8)
--- NOTE | 2018-11-21 14:06 | W.PREOPHP ---
Date of service: 11/21/18 Time of Service: 09:06 Assessment and Plan (1) Right knee pain: Current visit: No Status: Acute End-stage OA right knee in a minimal ambulator with MS not resolving with conservative measures. The patient and her long-term caregiver are given a brief overview of the surgical procedure possible complications and expected postop course as well as the need for the patient to participate in PT to get optimal results as the patient minimally participated in PT after her knee arthroscopy. Measures utilize to ameliorate any complications are reviewed all questions are answered History of Present Illness Chief Complaint: Right knee pain Narrative: cari is a 73-year-old female who reports a greater than 2-year history of right knee pain that is primarily brought on by weightbearing. The patient is a minimal ambulator from a history of secondary progressive MS diagnosed at age 40 presenting with lower leg numbness with MRI findings of MS. The pain is especially troublesome at night when she gets up to go to the bathroom. Conservative measures of an arthroscopy viscoelastic supplementation steroid injections and meloxicam along with Tylenol have not relieved her symptoms. The knee pain will disrupt her sleep at night preventing her from getting a restful night sleep. Weightbearing x-rays have been done which were remarkable for narrow lateral compartment with osteophytes evident at her lateral tibial plateau and lateral femoral condyle. A total knee was recommended as the best measure to relieve her longtime pain. Pertinent Surgical Information Denies previous medical history of: stroke, TIA, IA, use of sublingual nitroglycerin, , seizures, , thyroid disease, sleep apnea, liver disease, hepatitis, hematologic disorders Denies previous complications from surgery or anesthesic agents with respect to high fever, prolonged vomiting and difficulty waking up Review of Systems Constitutional Denies fever(s) and Denies headache(s) ENT Denies headache(s), Denies nasal congestion, Denies nasal discharge and Denies sore throat Cardiovascular Denies chest pain, Denies chest pain with activity, Denies palpitations, Denies dyspnea on exertion, Denies orthopnea and Denies paroxysmal nocturnal dyspnea Respiratory Denies cough, Denies excessive phlegm production, Denies pain on inspiration, Denies dyspnea on exertion and Denies wheezing Gastrointestinal Denies abdominal pain, Denies melena, Denies hematochezia, Denies nausea and Denies vomiting Genitourinary Denies hematuria, Denies urinary frequency and Denies dysuria Comments: Denies burning sensation with urination Musculoskeletal Reports as per HPI Neurologic Denies headache(s) Psychiatric Denies anxiety and Denies depression Endocrine Denies palpitations Comments: Denies any unplanned weight changes Allergic/Immunologic Denies wheezing PFSH Medical History Diverticulitis (Chronic) Surgical History History of repair of hiatal hernia (Acute) Hx of arthroscopy of right knee (Chronic) History of bowel resection (Acute) H/O hemorrhoidectomy (Chronic) History of cataract surgery (Chronic) Hx of hysterectomy (Chronic) Tenosynovitis, de Quervain (Resolved) Social History Smoking/Tobacco Use Status: Former Tobacco Use Quit Date: 08/12/16 Alcohol Intake: never Drug use: Never Substance use type: does not use Caregiver/Support person: Yes (has long distance operator home caregiver faraz [id number]) Details: lives in [place] Household members: none Housing: apartment Pets and animals: Yes Pets and animals: cat(s) Sexually active: No Do you think of yourself as: straight/heterosexual Current gender identity: female Frequency: does not exercise Marilee/Church: [employer] Special marilee needs: No Do you feel safe in your relationship?: Yes Meds Home Medications Medication Instructions Recorded Confirmed Type estradiol [Vagifem] 10 mcg VG as directed #30 tab 04/25/16 11/21/18 History fluconazole 150 mg PO ONCE PRN #6 tab-cap 04/25/16 11/21/18 History magnesium oxide 400 mg PO BID #180 tab-cap 03/17/18 11/21/18 Rx calcium carbonate 600 mg (1,500 1 tab PO BID #60 tab-cap 06/20/18 11/21/18 Rx mg)-vitamin D3 400 unit tablet jhcuvxdfslrk-acgthtoh-moubzx tablet 1 tab PO DAILY #90 tab-cap 07/26/18 11/21/18 Rx meloxicam 7.5 mg tablet 15 mg PO DAILY tab-cap 08/25/18 11/21/18 History mirtazapine 7.5 mg tablet 7.5 mg PO HS #30 tab 08/25/18 11/21/18 Rx acetaminophen ER 650 mg 1,300 mg PO BID tab 09/01/18 11/21/18 History tablet,extended release ferrous sulfate 325 mg (65 mg 325 mg PO DAILY #90 tab-cap 09/01/18 11/21/18 Rx iron) tablet gabapentin 300 mg capsule 300 mg PO TID #270 tab-cap 09/01/18 11/21/18 Rx metformin ER 500 mg 24 hr See Rx Instructions PO .COMPLEX 09/01/18 11/21/18 History tablet,extended release omeprazole 20 mg capsule,delayed 20 mg PO BID #180 tab-cap 09/01/18 11/21/18 Rx release alendronate 70 mg tablet 70 mg PO weekly #12 tab 09/22/18 11/21/18 Rx amitriptyline 100 mg tablet 100 mg PO HS #90 tab-cap 09/22/18 11/21/18 Rx cyanocobalamin (vit B-12) 1,000 1,000 mcg IJ monthly #2 vial 09/22/18 11/21/18 Rx mcg/mL injection solution hydroxyzine HCl 25 mg tablet 25 - 50 mg PO DIRECTED PRN #90 11/07/18 11/21/18 Rx tab cholecalciferol (vitamin D3) 1,000 unit PO BID 11/21/18 11/21/18 History docusate sodium [Colace] 100 mg PO DAILY 11/21/18 11/21/18 History potassium chloride 20 meq PO . AFTERNOON 11/21/18 11/21/18 History simvastatin 80 mg PO HS 11/21/18 11/21/18 History Allergies Allergy/AdvReac Type Severity Reaction Status Date / Time Penicillins Allergy Intermediate Skin Rash Unverified 11/21/18 10:18 miconazole Allergy Skin Rash Unverified 11/21/18 10:18 povidone-iodine Allergy Skin Rash Unverified 11/21/18 10:18 Sulfa (Sulfonamide Allergy Skin Rash Unverified 11/21/18 10:18 Antibiotics) Exam Const General: cooperative HENMT Throat: posterior oropharynx normal Eyes General: appearance normal, both eyes and all related structures Conjunctivae: conjunctivae normal Sclera: sclerae normal Neck Neck: no JVD Carotids: normal carotid upstroke and no bruits Resp Effort & Inspection: normal respiratory effort and able to speak in complete sentences Auscultation: clear to auscultation bilaterally, no rales, no rhonchi and no wheezes Cardio Rate: regular rate Heart Sounds: S1 normal, S2 normal and no murmurs Bruits: no abdominal aortic bruits Pulses: normal peripheral pulses Other: No pulsatile mass noted with palpation over the abdominal aorta GI Palpation: soft and no hepatosplenomegaly Auscultation: normal bowel sounds General: No CVA tenderness Extrem General: no pedal edema Other: Normal sensation to light touch No web space cracks or splits notedextension full with flexion intact [id number].[email or web address] region has some generalized boggy fullness without an actual effusion/fliud wave.patient able to straight leg raiseagainst resistance. Results Labs : 11/21/18 11:09 Laboratory Results - last 24 hr 11/21/18 11:09 WBC 7.25 RBC 3.97 L Hgb 12.2 Hct 38.9 MCV 98.0 H MCH 30.7 MCHC 31.4 L RDW 14.5 Plt Count 231 MPV 9.4 Immature Gran % 0.3 Neutrophils % 55.3 Lymphocytes % 35.7 Monocytes % 6.2 Eosinophils % 1.8 Basophils % 0.7 Absolute Neutrophils 4.01 Absolute Lymphocytes 2.59 Absolute Monocytes 0.45 Absolute Eosinophils 0.13 Absolute Basophils 0.05
--- NOTE | 2018-11-21 14:14 | HPE_ITS ---
Date of service: 11/21/18 Time of Service: 09:06 Assessment and Plan (1) Right knee pain: Current visit: No Status: Acute End-stage OA right knee in a minimal ambulator with MS not resolving with conservative measures. The patient and her long-term caregiver are given a brief overview of the surgical procedure possible complications and expected postop course as well as the need for the patient to participate in PT to get optimal results as the patient minimally participated in PT after her knee arthroscopy. Measures utilize to ameliorate any complications are reviewed all questions are answered History of Present Illness Chief Complaint: Right knee pain Narrative: cari is a 73-year-old female who reports a greater than 2-year history of right knee pain that is primarily brought on by weightbearing. The patient is a minimal ambulator from a history of secondary progressive MS diagnosed at age 40 presenting with lower leg numbness with MRI findings of MS. The pain is especially troublesome at night when she gets up to go to the bathroom. Conservative measures of an arthroscopy viscoelastic supplementation steroid injections and meloxicam along with Tylenol have not relieved her symptoms. The knee pain will disrupt her sleep at night preventing her from getting a restful night sleep. Weightbearing x-rays have been done which were remarkable for narrow lateral compartment with osteophytes evident at her lateral tibial plateau and lateral femoral condyle. A total knee was recommended as the best measure to relieve her longtime pain. Pertinent Surgical Information Denies previous medical history of: stroke, TIA, NC, use of sublingual nitroglycerin, , seizures, , thyroid disease, sleep apnea, liver disease, hepatitis, hematologic disorders Denies previous complications from surgery or anesthesic agents with respect to high fever, prolonged vomiting and difficulty waking up Review of Systems Constitutional Denies fever(s) and Denies headache(s) ENT Denies headache(s), Denies nasal congestion, Denies nasal discharge and Denies sore throat Cardiovascular Denies chest pain, Denies chest pain with activity, Denies palpitations, Denies dyspnea on exertion, Denies orthopnea and Denies paroxysmal nocturnal dyspnea Respiratory Denies cough, Denies excessive phlegm production, Denies pain on inspiration, Denies dyspnea on exertion and Denies wheezing Gastrointestinal Denies abdominal pain, Denies melena, Denies hematochezia, Denies nausea and Denies vomiting Genitourinary Denies hematuria, Denies urinary frequency and Denies dysuria Comments: Denies burning sensation with urination Musculoskeletal Reports as per HPI Neurologic Denies headache(s) Psychiatric Denies anxiety and Denies depression Endocrine Denies palpitations Comments: Denies any unplanned weight changes Allergic/Immunologic Denies wheezing PFSH Medical History Diverticulitis (Chronic) Surgical History History of repair of hiatal hernia (Acute) Hx of arthroscopy of right knee (Chronic) History of bowel resection (Acute) H/O hemorrhoidectomy (Chronic) History of cataract surgery (Chronic) Hx of hysterectomy (Chronic) Tenosynovitis, de Quervain (Resolved) Social History Smoking/Tobacco Use Status: Former Tobacco Use Quit Date: 08/12/16 Alcohol Intake: never Drug use: Never Substance use type: does not use Caregiver/Support person: Yes (has terminal supervisor home caregiver faraz [id number]) Details: lives in [facility] Household members: none Housing: apartment Pets and animals: Yes Pets and animals: cat(s) Sexually active: No Do you think of yourself as: straight/heterosexual Current gender identity: female Frequency: does not exercise Marilee/Protestant: [employer] Special marilee needs: No Do you feel safe in your relationship?: Yes Meds Home Medications Medication Instructions Recorded Confirmed Type estradiol [Vagifem] 10 mcg VG as directed #30 tab 04/25/16 11/21/18 History fluconazole 150 mg PO ONCE PRN #6 tab-cap 04/25/16 11/21/18 History magnesium oxide 400 mg PO BID #180 tab-cap 03/17/18 11/21/18 Rx calcium carbonate 600 mg (1,500 1 tab PO BID #60 tab-cap 06/20/18 11/21/18 Rx mg)-vitamin D3 400 unit tablet lsbirdedxzee-otbofryp-yxgjtc tablet 1 tab PO DAILY #90 tab-cap 07/26/18 11/21/18 Rx meloxicam 7.5 mg tablet 15 mg PO DAILY tab-cap 08/25/18 11/21/18 History mirtazapine 7.5 mg tablet 7.5 mg PO HS #30 tab 08/25/18 11/21/18 Rx acetaminophen ER 650 mg 1,300 mg PO BID tab 09/01/18 11/21/18 History tablet,extended release ferrous sulfate 325 mg (65 mg 325 mg PO DAILY #90 tab-cap 09/01/18 11/21/18 Rx iron) tablet gabapentin 300 mg capsule 300 mg PO TID #270 tab-cap 09/01/18 11/21/18 Rx metformin ER 500 mg 24 hr See Rx Instructions PO .COMPLEX 09/01/18 11/21/18 Hist ory tablet,extended release omeprazole 20 mg capsule,delayed 20 mg PO BID #180 tab-cap 09/01/18 11/21/18 Rx release alendronate 70 mg tablet 70 mg PO weekly #12 tab 09/22/18 11/21/18 Rx amitriptyline 100 mg tablet 100 mg PO HS #90 tab-cap 09/22/18 11/21/18 Rx cyanocobalamin (vit B-12) 1,000 1,000 mcg IJ monthly #2 vial 09/22/18 11/21/18 Rx mcg/mL injection solution hydroxyzine HCl 25 mg tablet 25 - 50 mg PO DIRECTED PRN #90 11/07/18 11/21/18 Rx tab cholecalciferol (vitamin D3) 1,000 unit PO BID 11/21/18 11/21/18 History docusate sodium [Colace] 100 mg PO DAILY 11/21/18 11/21/18 History potassium chloride 20 meq PO . AFTERNOON 11/21/18 11/21/18 History simvastatin 80 mg PO HS 11/21/18 11/21/18 History Allergies Allergy/AdvReac Type Severity Reaction Status Date / Time Penicillins Allergy Intermediate Skin Rash Unverified 11/21/18 10:18 miconazole Allergy Skin Rash Unverified 11/21/18 10:18 povidone-iodine Allergy Skin Rash Unverified 11/21/18 10:18 Sulfa (Sulfonamide Allergy Skin Rash Unverified 11/21/18 10:18 Antibiotics) Exam Const General: cooperative HENMT Throat: posterior oropharynx normal Eyes General: appearance normal, both eyes and all related structures Conjunctivae: conjunctivae normal Sclera: sclerae normal Neck Neck: no JVD Carotids: normal carotid upstroke and no bruits Resp Effort & Inspection: normal respiratory effort and able to speak in complete sentences Auscultation: clear to auscultation bilaterally, no rales, no rhonchi and no wheezes Cardio Rate: regular rate Heart Sounds: S1 normal, S2 normal and no murmurs Bruits: no abdominal aortic bruits Pulses: normal peripheral pulses Other: No pulsatile mass noted with palpation over the abdominal aorta GI Palpation: soft and no hepatosplenomegaly Auscultation: normal bowel sounds General: No CVA tenderness Extrem General: no pedal edema Other: Normal sensation to light touch No web space cracks or splits notedextension full with flexion intact to105- 110.suprapatellar region has some generalized boggy fullness without an actual effusion/fliud wave.patient able to straight leg raiseagainst resistance. Results Labs : 11/21/18 11:09 Laboratory Results - last 24 hr 11/21/18 11:09 WBC 7.25 RBC 3.97 L Hgb 12.2 Hct 38.9 MCV 98.0 H MCH 30.7 MCHC 31.4 L RDW 14.5 Plt Count 231 MPV 9.4 Immature Gran % 0.3 Neutrophils % 55.3 Lymphocytes % 35.7 Monocytes % 6.2 Eosinophils % 1.8 Basophils % 0.7 Absolute Neutrophils 4.01 Absolute Lymphocytes 2.59 Absolute Monocytes 0.45 Absolute Eosinophils 0.13 Absolute Basophils 0.05
== END 2018-11-21 10:14 ==
PROVIDERS: PCP Family Medicine; Visit Provider Orthopaedic Surgery
DX: M25.561 Pain in right knee (principal); M17.11 Unilateral primary osteoarthritis, right knee; Z01.818 Encounter for other preprocedural examination
CPT/HCPCS: 36415; 85025

== ENCOUNTER 2018-12-01 06:08 | Inpatient (IN) | payer MEDICARE, MEDICAID, SELFPAY ==
[2018-12-01] VITALS (15 sets, daily range): BP systolic 114–144; BP diastolic 43–81; PULSE 85–105; RESP 8–22; TEMP 36–37.1; O2SAT 88–99
[2018-12-01] MEDS: Lactated Ringers 1,000 ML 80 ML IV ×2 (07:04→12:39)
[2018-12-01] MEDS: Bupivacaine 0.25% Pres-Free 10 ML VIAL (07:26)
[2018-12-01] MEDS: Bupivacaine LIPOSOME/PF 133 MG/10 ML VIAL IJ (07:26)
[2018-12-01] MEDS: ceFAZolin 2 GM/50 ML BAG IVPB (07:34)
[2018-12-01] MEDS: Hydrogen Peroxide 3% 480 ML BTL (08:50)
--- NOTE | 2018-12-01 10:18 | DI.RAD_ITS ---
SYMPTOM/DIAGNOSIS: CHECK COMPONENTS OF RT TKR IN RR PORTABLE RIGHT KNEE: AP and cross table lateral views were performed with the knee in an immobilizer which somewhat obscures the bony detail. There are anterior skin truman. The patient is status post placement of a total knee prosthesis which appears well aligned. There is residual post surgical air in the joint space and anterior soft tissues.
[2018-12-01] MEDS: fentaNYL 100 MCG/2 ML VIAL IVP (10:23)
[2018-12-01] MEDS: Normal Saline Flush 10 ML SYR IV ×2 (10:35→12:38)
[2018-12-01] MEDS: HYDROmorphone 2 MG/ML VIAL IVP ×3 (10:35→11:04)
[2018-12-01] MEDS: Ketorolac 30 MG/ML VIAL IVP ×3 (12:35→23:31)
[2018-12-01] MEDS: POTASSIUM CHLORIDE/0.9% NACL 1,000 ML 125 MEQ IV ×2 (13:53→22:05)
[2018-12-01] MEDS: oxyCODONE-CR 10 MG TABCR PO (13:56)
[2018-12-01] MEDS: Gabapentin 300 MG CAP PO ×2 (13:57→20:12)
[2018-12-01] MEDS: Docusate Sodium 100 MG CAP PO ×2 (13:57→20:12)
--- NOTE | 2018-12-01 17:10 | PT.INIE ---
Date of service: 12/01/18 Time of Service: 17:10 PT Notes Inpatient Physical Therapy Evaluation Date: 12/01/2018 Referring Doctor: Camron Pantoja MD PT Orders: PT CONSULT: Mobilize postop right total knee replacement Precautions: Fall risk Patient Profile/Admitting Diagnosis: 73-year-old female with asked arthritis of the right knee, status post right total knee replacement earlier today PMHX: MS, history of TIA/CVA, hypothyroidism Social History/Home Situation: Retired, 40-year history of MS, has a vacuum cleaner repair person and a handicap accessible home Current Functional Limitations: Requires assistance with transportation, independent with her dressing and personal hygiene skills Equipment Owned/DME: Has motorized wheelchair, wheeled walker and adaptive equipment at home Subjective: Objective: General Observation: Lethargic but cooperative and following simple commands appropriately Mental Status: Generally oriented and recognizes me from previous treatments, but mildly confused asking when she is going to have her surgery, etc. Pain: 8/10 on a VAS throughout the anterior aspect of the right knee Vital Signs: Resting pulse is 88 bpm and O2 sat at 90%. Following ambulation her pulse is 98 bpm and O2 sat is 95% ROM: Range of motion measurements were not performed Strength: Has full functional use of her upper extremities and generally rated -5/5. She is able to dorsi and plantarflex her ankles and digits and performs a supine straight leg raise on the right. Sensation: Intact to light touch throughout the digits of her right foot Bed Mobility/Transfers: Requires assistance with her right lower extremity when assuming the supine to sitting to standing positions and vice versa Gait: Ambulate approximately 5 feet forward and backwards, with weightbearing as tolerated in the right lower extremity and contact guarding. Balance: Static Sitting: Good Dynamic Sitting: Good Static Standing: Good Dynamic Standing: Fair requiring contact guarding Special Tests: Mobility Limitations Standardized Measure [facility] AM-PAC 6 clicks Basic Mobility Inpatient Short Form: Raw Score: 15 standardized Score: 2.93 CMS Score: 57.70 CMS Modifier: CK Informed Consent/Education: Patient instructed in purpose of PT consult and plan of care. Assessment: Patient is a 73 year old female referred to physical therapy services with the diagnosis of status post right total knee replacement. Patient presents with clinical signs and symptoms consistent with this diagnosis, as demonstrated by the following impairment level findings: Requiring assistance with bed mobility activities, contact guarding with ambulation along with distance limited to 5 feet, etc. Impairments are contributing to the following functional limitations: AMPAC score. Patient is assessed as a Moderate 28375 complexity based on the following: History: See comorbidities and social history Examination: See above for functional limitations and impairments Presentation: Evolving Decision Making: Moderate complexity based on her clinical findings and her CMS modifier Goals: Goals X1 week 1. Supine-Sit independent 2. Sit-Supine independent 3. Sit-Stand dependent 4. Stand-Sit independent 5. Bed-Chair independent 6. Chair-Bed independent 7. Gait ambulating with a wheeled walker with contact guarding for 20 feet weightbearing as tolerated in the right lower extremity 8. Stairs and descend 2 steps with a railing 9. Independentwith her dressing personal hygiene skills home exercise program independent Plan of Care/Treatment Plan: 1-2x/day, 7 days/week x 1 week. Plan of care has been reviewed with the TRUCK SAFETY INSPECTOR providing the service under Physical Therapy direction. Initiate Physical Therapy intervention for strengthening, bed mobility, transfers, gait, stairs, balance training, use of assistive device. DISCHARGE RECOMMENDATIONS: Return home with assistance from vacuum cleaner repair person TREATMENT CODE/TIME: 9716 2?1 40 minute/1-1:40 p.m.
--- NOTE | 2018-12-01 17:24 | IN_ITS ---
Date of service: 12/01/18 Time of Service: 17:10 PT Notes Inpatient Physical Therapy Evaluation Date: 12/01/2018 Referring Doctor: Camron Pantoja MD PT Orders: PT CONSULT: Mobilize postop right total knee replacement Precautions: Fall risk Patient Profile/Admitting Diagnosis: 73-year-old female with asked arthritis of the right knee, status post right total knee replacement earlier today PMHX: MS, history of TIA/CVA, hypothyroidism Social History/Home Situation: Retired, 40-year history of MS, has a psych coordinator and a handicap accessible home Current Functional Limitations: Requires assistance with transportation, independent with her dressing and personal hygiene skills Equipment Owned/DME: Has motorized wheelchair, wheeled walker and adaptive equipment at home Subjective: Objective: General Observation: Lethargic but cooperative and following simple commands appropriately Mental Status: Generally oriented and recognizes me from previous treatments, but mildly confused asking when she is going to have her surgery, etc. Pain: 8/10 on a VAS throughout the anterior aspect of the right knee Vital Signs: Resting pulse is 88 bpm and O2 sat at 90%. Following ambulation her pulse is 98 bpm and O2 sat is 95% ROM: Range of motion measurements were not performed Strength: Has full functional use of her upper extremities and generally rated -5/5. She is able to dorsi and plantarflex her ankles and digits and performs a supine straight leg raise on the right. Sensation: Intact to light touch throughout the digits of her right foot Bed Mobility/Transfers: Requires assistance with her right lower extremity when assuming the supine to sitting to standing positions and vice versa Gait: Ambulate approximately 5 feet forward and backwards, with weightbearing as tolerated in the right lower extremity and contact guarding. Balance: Static Sitting: Good Dynamic Sitting: Good Static Standing: Good Dynamic Standing: Fair requiring contact guarding Special Tests: Mobility Limitations Standardized Measure [facility] AM-PAC 6 clicks Basic Mobility Inpatient Short Form: Raw Score: 15 standardized Score: 2.93 CMS Score: 57.70 CMS Modifier: CK Informed Consent/Education: Patient instructed in purpose of PT consult and plan of care. Assessment: Patient is a 73 year old female referred to physical therapy services with the diagnosis of status post right total knee replacement. Patient presents with clinical signs and symptoms consistent with this diagnosis, as demonstrated by the following impairment level findings: Requiring assistance with bed mobility activities, contact guarding with ambulation along with distance limited to 5 feet, etc. Impairments are contributing to the following functional limitations: AMPAC score. Patient is assessed as a Moderate 11503 complexity based on the following: History: See comorbidities and social history Examination: See above for functional limitations and impairments Presentation: Evolving Decision Making: Moderate complexity based on her clinical findings and her CMS modifier Goals: Goals X1 week 1. Supine-Sit independent 2. Sit-Supine independent 3. Sit-Stand dependent 4. Stand-Sit independent 5. Bed-Chair independent 6. Chair-Bed independent 7. Gait ambulating with a wheeled walker with contact guarding for 20 feet weightbearing as tolerated in the right lower extremity 8. Stairs and descend 2 steps with a railing 9. Independentwith her dressing personal hygiene skills home exercise program independent Plan of Care/Treatment Plan: 1-2x/day, 7 days/week x 1 week. Plan of care has been reviewed with the UNDERGROUND SUPERVISOR providing the service under Physical Therapy direction. Initiate Physical Therapy intervention for strengthening, bed mobility, transfers, gait, stairs, balance training, use of assistive device. DISCHARGE RECOMMENDATIONS: Return home with assistance from psych coordinator TREATMENT CODE/TIME: 9716 2?1 40 minute/1-1:40 p.m.
[2018-12-01] MEDS: Simvastatin 40 MG TAB 80 MG PO (20:12)
[2018-12-01] MEDS: Calcium 600mg/Vit D 200U TAB 1 TAB PO (20:12)
[2018-12-01] MEDS: Amitriptyline 50 MG TAB 100 MG PO (21:28)
[2018-12-01] MEDS: Mirtazapine 15 MG TAB 7.5 MG PO (21:28)
[2018-12-02] VITALS (8 sets, daily range): BP systolic 104–132; BP diastolic 62–72; PULSE 81–102; RESP 16–22; TEMP 36.6–37.9; O2SAT 94–98
[2018-12-02] MEDS: oxyCODONE-CR 10 MG TABCR PO ×2 (03:20→13:17)
[2018-12-02] MEDS: POTASSIUM CHLORIDE/0.9% NACL 1,000 ML 125 MEQ IV (06:07)
[2018-12-02] MEDS: Ketorolac 30 MG/ML VIAL IVP ×4 (06:07→23:50)
--- NOTE | 2018-12-02 06:58 | ROE_ITS ---
REPORT OF OPERATIVE PROCEDURE DATE OF PROCEDURE: December 01, 2018 PREOPERATIVE DIAGNOSIS: Osteoarthritis right knee. POSTOPERATIVE DIAGNOSIS: Osteoarthritis right knee. PROCEDURE: Right total knee arthroplasty. COMPONENTS USED: A size 3 femoral component posterior cruciate retaining, size 3 tibial component, a 10-mm size 3 rota ting platform polyethylene insert and a 35-mm tri-pronged patella . All components were cemented. ANESTHESIA: Femoral nerve block and general. SURGEON: Camron Pantoja M.D. SNOWMAKER: Chris Moore INDICATIONS: This is a 73-year-old white female with multiple sclerosis who suffers from disabling right knee pain from osteoarthritis of the knee. She has reached the point where conservative treatment is not relie ving her pain. She has significant impairment in all activities of daily living from her right knee p ain. Total knee arthroplasty was recommended to alleviate her pain and hopefully restore some of her previous ambulatory abilities. The risks and complications of the procedure were explained to the pat ient in detail preoperatively. PROCEDURE: The patient was taken to the Operating Room on 12/01/2018, where she was administered a femoral nerve block on the right. The patient was then placed supine on the operating table and a general anesthet ic was administered. A proximal tourniquet was applied to the right upper thigh. A roll was placed under the right buttock. The right lower extremity was prepped from toes to tourniquet and draped martine e in the usual sterile fashion. Under proximal tourniquet control, an anterior midline incision was made beginning at the tibial tube rcle and extending 4 inches proximal to the patella. The incision was carried down through the skin and subcu to the fascia. A medial parapatellar capsular incision was then made, it was extended proxi robel and longitudinally in the midline of the quadriceps tendon. A medial subperiosteal release wa s performed. The patella was everted and the knee was hyperflexed. The distal femur was resected usi ng intramedullary alignment guides and jigs. The patient was found to require a size 3 femoral compo nent posterior cruciate retaining. The proximal tibia was resected using extramedullary alignment nano deja and jigs. The patient was found to require a size 3 tibial component. The tibial trial was orie nted for proper rotation and then the keel and the flanges for the tibial component were then reamed and punched out in proper rotational alignment. Trial reduction was performed at this point and it w as found that a 10-mm thick insert allowed the knee to come to full extension and was stable througho ut the range of flexion. Finally, the patella was resected using the patella resection guide. Care wa s taken to leave 16 millimeters thickness of patella after resection. Using the drill guide for the Tripronged patella, the holes were drilled out in proper rotation align ment for a 35-mm patellar component. The proximal tibia was then prepared for cementing with pulsed irrigation lavage with saline solution , and drying with peroxide-soaked strip sponges. One batch of gentamicin-impregnated methylmethacryl ate was vacuum mixed and hand packed onto the prepared tibia and on the under surface of the tibial c omponent. The tibial component was inserted, impacted into place, and pressurized using the trial com ponents and extending the knee. Excess cement was trimmed from the margins of the tibial tray while t he cement was still soft using the plastic cement removal tool. When the first batch of methylmethacrylate had cured, the trial components were removed. The distal femur and the proximal tibia were prepared for cementing with pulsed irrigation lavage and saline tim ution and drying with peroxide-soaked strip sponges. Using the femoral trial, drill holes were then made for the lugs of the femoral component. Another ba tch of gentamicin impregnated methylmethacrylate was vacuum mixed and was hand packed onto the prepar ed distal femur and patella, and on the under surface of the femoral component and the patellar compo nent. The femoral component was then impacted into place with the impactor mallet and further pressur ed using the trial insert and extending the knee. The patellar component was inserted and pressurized using the patellar clamp. Excess cement was trimmed from the margins of the femoral component and the patellar component while the cement was still soft using the plastic cement removal tool. When the second batch of methylmetha crylate had cured, the trial insert was removed. The knee was irrigated copiously with pulsed irriga tion lavage and saline solution. The posterior capsule and margins of the incision were then infiltr ated with 0.5% Marcaine with epinephrine solution. The actual insert 10-millimeter size 3 posterior c ruciate retaining rotating platform was placed in the tibial component and reduced on the femoral con dyles. The knee was flexed over soft goods and closure was begun. The medial parapatellar incision and incision of the quad tendon were repaired with interrupted [id number] sutures of #1- Vicryl suture material. The subcu was approximated with interrupted #2-0 Vicryl sutures. The skin edges wer e approximated with skin truman. Sterile dressings were applied, Xeroform gauze, sterile gauze, 4x4 s, ABD pads and wrapped with a Kerlix bandage. A long leg Beavers compressive dressing was applied. Th e tourniquet was released and a knee immobilizer splint was placed over the compressive dressing to m aintain the knee in extension. The patient was given 1 gram of tranexamic acid prior to tourniquet i nflation and a second gram of tranexamic acid when the tourniquet was deflated. The patient's general anesthesia was reversed without complications. She was discharged to the Recovery Room in good cond ition.
[2018-12-02 07:53] LABS: HCT 29.3 % (36.0-46.0); HGB 8.9 g/dL (12.0-15.5); Mean Corp. HGB Concentration 30.4 g/dL (32.0-36.0); Mean Corpuscular Hemoglobin 30.9 pg (27.0-33.0); Mean Corpuscular Volume 101.7 fL (80-95); Mean Platelet Volume 9.9 fL (8.0-11.0); Platelet Count 185 x1000/uL (130-400); RBC 2.88 m/cumm (4.00-5.20); RBC Distribution Width 14.2 % (11.7-14.6); White Blood Cell Count 7.54 k/cumm (4.4-10.8)
[2018-12-02] MEDS: Ferrous Sulfate 325 MG TAB PO (07:56)
[2018-12-02] MEDS: Docusate Sodium 100 MG CAP PO ×3 (07:56→19:59)
[2018-12-02] MEDS: Calcium 600mg/Vit D 200U TAB 1 TAB PO ×2 (07:56→19:58)
[2018-12-02] MEDS: Pantoprazole 40 MG TABCR PO (07:56)
[2018-12-02] MEDS: Gabapentin 300 MG CAP PO ×3 (07:57→19:59)
[2018-12-02] MEDS: Multivitamin w/Minerals TAB 1 TAB PO (07:57)
[2018-12-02] MEDS: oxyCODONE 5 mg/Acetaminophen 325 mg TAB 1 TAB PO ×3 (07:57→23:50)
[2018-12-02] MEDS: Enoxaparin 30 MG/0.3 ML SYR SC (10:51)
[2018-12-02] MEDS: Normal Saline Flush 10 ML SYR IV ×3 (11:25→23:50)
--- NOTE | 2018-12-02 12:55 | PT.INTREAT ---
Date of service: 12/02/18 Time of Service: 12:55 PT Notes Inpatient Physical Therapy Treatment Note [facility] Date: 12/02/18 PRECAUTIONS: Fall, WBAT on R SUBJECTIVE: Lorie c/o significant anterior thigh pain with weight bearing, transfers, and ther ex. OBJECTIVE: PAIN: Patient c/o bilateral anterior thigh pain with weight bearing, transfers, and ther ex BED MOBILITY/TRANSFERS Supine?sit: S with HOB at 40 degrees Sit?supine: Min A of R LE with HOB flat Sit-stand: SBA Stand-sit: SBA GAIT Assistive Device: FWW Weight bearing: Full Assist: SBA Distance: 120' in both a.m. and p.m. Deviation: Knee immobilizer utilized THEREX: Patient completed a lower extremity strengthening and stabilization program, in a supine position, as per flow sheet. ASSESSMENT: Patient tolerated session with c/o anterior thigh pain in R LE with weight bearing, ther ex, and transfers. She was able to tolerate a progression in gait distance with FWW support and knee immobilizer in place. During afternoon session, patient demonstrated decreased safety awareness, requiring cueing for proper use of FWW mechanics with gait training as well as cueing for safe transfer mechanics. She would benefit from continued strengthening, as well as gait and transfer training for improved activity tolerance and mobility. PLAN: Continue with PT's POC TREATMENT CODE/TIME: Session 1: 40 minutes; 57272 x2, 85052 Session 2: 30 minutes; 32195, 19814
--- NOTE | 2018-12-02 14:31 | PHARADMIT ---
Admission Pharmacy Clinical Review POST-OP RIGHT TOTAL KNEE Code Status Full Code Current Weight Wgt-90 kg Renally Cleared and Narrow Therapeutic Index Meds CrCl~ 32.5 mL/min Meds-OK QTc Value / Action Taken none current BP Control, Fever BP-104/64 Tmax- 37.2C Electrolytes reviewed NA DVT Prophylaxis Lovenox Opiate Usage / Scheduled Bowel Regimen Ordered Yes Yes Plt/SCr for Heparin / Enoxaparin Plts-185 SCr-1.33 INR for Warfarin na H/H stable, WBC/Bands H&H- 8.9/29.3 WBC- 7.54 Antibiotic appropriateness Cefazolin Cultures and Sensitivities NA Surgical ABX d/c within 24 hr Yes DM control / Insulin Dosing FSBS-222 Heart Failure (Check EF%) (THEODORE's, B-Block, Diuretics) none IV to PO Switch No Home Meds Reviewed Yes Home Meds Not Ordered Fosamax, Diflucan,MagOx, Meloxicam, Metformin, Comments PatOwn Vagifem,
--- NOTE | 2018-12-02 15:01 | PGE_ITS ---
Date of Service Date of service: 12/02/18 Time of Service: 14:59 Assessment and Plan (1) Status post total knee replacement, right: Current visit: Yes Status: Acute Assessment: Stable postop day #1 right total knee replacement. I once again explained to Markos's that she can go home when she is independent with transfers and is taking just p.o. pain meds. Her Greene is still in even though I ordered it to come out at 9 AM today. Plan: Spoke to charge nurse about removing the Greene as ordered previously. Will DC her IV fluids. PT will remove her Beavers dressing and start active range of motion of her right knee tomorrow. Will start using a Cryo/Cuff to the right knee 4 times a day for an hour each time. Will use a long-leg teds stocking on the right for swelling. Will DC home when fully independent and taking just p.o. pain meds. Subjective Interval history since last seen: Lorie is anxious to go home as soon as possible. Besides her multimodal pain meds she is not taking any supplemental narcotic injections. She is only taking occasional hydrocodone. She still has some mild nausea but has not been vomiting. Exam Narrative Exam Narrative: She has been up and walking around the room with physical therapy today. She did require standby assist to transfer. Most of the assistance with moving her leg. Hemoglobin 8.9 g this morning. She has excellent urine output. She has good active motion of her right ankle and toes. Good sensation and circulation to the right foot. Objective Objective Clinical Data: Abnormal lab results 12/02/18 Range/Units 07:00 RBC 2.88 L (4.00-5.20) m/cumm Hgb 8.9 L (12.0-15.5) g/dL Hct 29.3 L (36.0-46.0) % MCV 101.7 H (80-95) fL MCHC 30.4 L (32.0-36.0) g/dL Vital Signs Temperature 37.2 C 12/02/18 11:10 Temperature Source Tympanic 12/02/18 11:10 Pulse 94 H 12/02/18 11:10 Pulse Rhythm Regular 12/02/18 07:40 Respiratory Rate 16 12/02/18 11:10 Respiratory Effort 12/02/18 07:40 Respiratory Depth Shallow 12/02/18 07:40 Respiratory Pattern Apnea 12/02/18 07:40 Blood Pressure 104/64 12/02/18 11:10 Pulse Oximetry 95 12/02/18 11:10 Oxygen Delivery Method Nasal Cannula 12/02/18 03:27 Oxygen Flow Rate 1 12/02/18 03:27 Pain Level 1 12/02/18 11:26 Comment 12/01/18 11:30 Intake & Output 12/01/18 12/02/18 12/02/18 23:59 11:59 23:59 Intake Total 2051.668 / 3021.668 1093.333 / 1333.333 240 / 1333.333 Output Total 600 / 725 500 / 1050 550 / 1050 Balance 1451.668 / 2296.668 593.333 / 283.333 -310 / 283.333 Intake: IV 1751.668 / 2721.668 1033.333 / 1033.333 Oral 300 / 300 60 / 300 240 / 300 Output: Urine 600 / 725 500 / 1050 550 / 1050 Other: Urine Color Light Deisi Light Deisi Yellow Urine Appearance Clear Clear Clear Laboratory Results WBC 7.54 k/cumm (4.4-10.8) 12/02/18 07:00 RBC 2.88 m/cumm (4.00-5.20) L 12/02/18 07:00 Hgb 8.9 g/dL (12.0-15.5) L 12/02/18 07:00 Hct 29.3 % (36.0-46.0) L 12/02/18 07:00 MCV 101.7 fL (80-95) H 12/02/18 07:00 MCH 30.9 pg (27.0-33.0) 12/02/18 07:00 MCHC 30.4 g/dL (32.0-36.0) L 12/02/18 07:00 RDW 14.2 % (11.7-14.6) 12/02/18 07:00 Plt Count 185 x1000/uL (130-400) 12/02/18 07:00 MPV 9.9 fL (8.0-11.0) 12/02/18 07:00
[2018-12-02] MEDS: Acetaminophen 325 MG TAB 650 MG PO (16:10)
--- NOTE | 2018-12-02 17:00 | PDOC.CMIN ---
Care Management Initial Assess REASON FOR HOSPITALIZATION:: Post Op R Total Knee PAST MEDICAL HISTORY/PAST SURGICAL HISTORY:: diverticulitis, hemorrhoidectomy, bowel resection, cataract surgery, repair of hiatal hernia, arhtroscopy of right knee, hysterecotmy, tenosynovitis, de Quervain PREVIOUS FUNCTIONAL STATUS/SOCIAL/FAMILY SUPPORTS:: Lorie resides alone in a handicap accessible apartment at [facility] in [place], [place]. She has home [employer] rep services four hours a day through [facility]. She reports no current support people in her life, but appears content with her apartment, setting and services. She uses a motorized W/C at baseline when leaving her apartment and utilizes a FWW in her apartment. She reports she is donating her brain to research because of her wish to help find a cure for MS. CURRENT FUNCTIONAL STATUS:: Lorie is sitting in her chair, open to discussion with this senior medical writer. She uses good humor appropriately to interact fully and is forthcoming with information. Has patient been provided with information about the portal?: Yes Did the patient sign up for the portal?: No CODE STATUS:: DNR INSURANCE COVERAGE / FINANCIAL ISSUES:: MCR, [place] CURRENT HOME/COMMUNITY SERVICES/EQUIPMENT:: [facility] homemaker supports, manager case: Janeth Bailon, Motorized W/C, FWW, handicap accessible apartment, meal site. PRIMARY CARE PHYSICIAN:: Gris Bates POTENTIAL DISCHARGE NEEDS:: Evaluation of further needs, follow up appointments. PATIENT/FAMILY EDUCATION NEEDS:: Review of discharge instructions, discuss Ask Me Three. ANTICIPATED BARRIERS TO DISCHARGE:: None identified. TRANSPORTATION:: Via [facility]. PLAN:: Lorie will return home when ready per MD. She will follow up with her community providers and resume current supports. Undetermined if she will require additional services at this time; CM will continue to follow. Anticipate Lorie will transport via [facility] W/C van coordinated by this senior medical writer. CM will notify Janeth Bailon [facility] CM of discharge timing to support coordination of homemaker support.
--- NOTE | 2018-12-02 17:12 | INITIAL_ITS ---
Care Management Initial Assess REASON FOR HOSPITALIZATION:: Post Op R Total Knee PAST MEDICAL HISTORY/PAST SURGICAL HISTORY:: diverticulitis, hemorrhoidectomy, bowel resection, cataract surgery, repair of hiatal hernia, arhtroscopy of right knee, hysterecotmy, tenosynovitis, de Quervain PREVIOUS FUNCTIONAL STATUS/SOCIAL/FAMILY SUPPORTS:: Lorie resides alone in a handicap accessible apartment at [facility] in [place], [place]. She has home improvement contractor services four hours a day through [facility]. She reports no current support people in her life, but appears content with her apartment, setting and services. She uses a motorized W/C at baseline when leaving her apartment and utilizes a FWW in her apartment. She reports she is donating her brain to research because of her wish to help find a cure for MS. CURRENT FUNCTIONAL STATUS:: Lorie is sitting in her chair, open to discussion with this program writer. She uses good humor appropriately to interact fully and is forthcoming with information. Has patient been provided with information about the portal?: Yes Did the patient sign up for the portal?: No CODE STATUS:: DNR INSURANCE COVERAGE / FINANCIAL ISSUES:: MCR, [place] CURRENT HOME/COMMUNITY SERVICES/EQUIPMENT:: [facility], [facility] homemaker supports, case hardener: Janeth Bailon, Motorized W/C, FWW, handicap accessible apartment, meal site. PRIMARY CARE PHYSICIAN:: Gris Bates POTENTIAL DISCHARGE NEEDS:: Evaluation of further needs, follow up appointments. PATIENT/FAMILY EDUCATION NEEDS:: Review of discharge instructions, discuss Ask Me Three. ANTICIPATED BARRIERS TO DISCHARGE:: None identified. TRANSPORTATION:: Via [facility]. PLAN:: Lorie will return home when ready per MD. She will follow up with her community providers and resume current supports. Undetermined if she will require additional services at this time; CM will continue to follow. Anticipate Lorie will transport via [facility] W/C van coordinated by this program writer. CM will notify Janeth Bailon [facility] CM of discharge timing to support coordination of homemaker support.
[2018-12-02] MEDS: Simvastatin 40 MG TAB 80 MG PO (19:59)
[2018-12-02] MEDS: Amitriptyline 50 MG TAB 100 MG PO (21:57)
[2018-12-02] MEDS: Mirtazapine 15 MG TAB 7.5 MG PO (21:58)
[2018-12-03] MEDS: oxyCODONE-CR 10 MG TABCR PO ×2 (01:43→14:06)
[2018-12-03] MEDS: Normal Saline Flush 10 ML SYR IV ×2 (01:46→07:55)
[2018-12-03 03:50] VITALS: BP 117/67; PULSE 100; RESP 21; TEMP 37.8; O2SAT 94
[2018-12-03] MEDS: Ketorolac 30 MG/ML VIAL IVP (06:42)
[2018-12-03 07:27] LABS: HCT 29.9 % (36.0-46.0); HGB 8.9 g/dL (12.0-15.5); Mean Corp. HGB Concentration 29.8 g/dL (32.0-36.0); Mean Corpuscular Hemoglobin 30.4 pg (27.0-33.0); Mean Platelet Volume 9.6 fL (8.0-11.0); Platelet Count 210 x1000/uL (130-400); RBC 2.93 m/cumm (4.00-5.20); RBC Distribution Width 14.2 % (11.7-14.6)
[2018-12-03] MEDS: oxyCODONE 5 mg/Acetaminophen 325 mg TAB 1 TAB PO ×2 (07:54→15:38)
[2018-12-03] MEDS: Ferrous Sulfate 325 MG TAB PO (07:54)
[2018-12-03] MEDS: Calcium 600mg/Vit D 200U TAB 1 TAB PO (07:55)
[2018-12-03] MEDS: Pantoprazole 40 MG TABCR PO (07:55)
[2018-12-03] MEDS: Multivitamin w/Minerals TAB 1 TAB PO (07:55)
[2018-12-03] MEDS: Docusate Sodium 100 MG CAP PO ×2 (07:55→14:05)
[2018-12-03] MEDS: Gabapentin 300 MG CAP PO ×2 (07:55→14:05)
[2018-12-03 09:35] VITALS: O2SAT 95
[2018-12-03] MEDS: Enoxaparin 30 MG/0.3 ML SYR SC (10:47)
--- NOTE | 2018-12-03 12:05 | PT.INTREAT ---
Date of service: 12/03/18 Time of Service: 12:05 PT Notes Inpatient Physical Therapy Treatment Note [facility] Date: 12/03/2018 PRECAUTIONS: WBAT R SUBJECTIVE: States that she did not sleep well last night, and is looking forward to going home. She is hopeful that she will be discharged today. She reports that she had significant pain earlier this morning, however she is feeling a lot better now. OBJECTIVE: PAIN: Minimal complains of pain with transfers and ther ex BED MOBILITY/TRANSFERS Supine-sit: I Sit-supine: I Sit-stand: I Stand-sit: I GAIT Assistive Device: FWW Weight bearing: WBAT R Assist: S Distance: 200' Deviation: Step-through gait pattern utilized, cueing for FWW mechanics for safety, without knee immobilizer THEREX: Patient completed a lower extremity strengthening and stabilization program, as per flow sheet. She was able to perform active SLR x10, without difficulty. Right knee AROM is -4-97 degrees without pain. End with cryocuff to right knee. TOILETING: Patient toileted requiring supervision for transfers from low surface only. ASSESSMENT: Patient tolerated session with minimal complaints of pain in right knee. Patient was able to tolerate a progression in gait distance with FWW support and supervision. Patient requires significant cueing for FWW mechanics for safety, as well as to remember to use it for support with weight bearing activities. Patient demonstrates independence with bed mobility and transfers at this time. Patient will benefit from continued gait training at as well as strengthening for improved ability to perform daily functional tasks. PLAN: Continue with PT's POC TREATMENT CODE/TIME: Session 1: 40 minutes; 59820 x2, [id number]
[2018-12-03 12:20] VITALS: BP 124/62; PULSE 58; RESP 16; TEMP 36.6; O2SAT 95
--- NOTE | 2018-12-03 13:32 | DSE_ITS ---
Date of service: 12/03/18 Time of Service: 13:31 Discharge Plan Disposition Patient Disposition: HOME W/HOME HEALTH SERVICE Condition: Good Discharge Details Reason For Visit: POST-OP R TOTAL KNEE Admit Date/Time: 12/01/18 06:08 Admit Provider: Camron Pantoja Attending Provider: Camron Pantoja Primary Care Provider: [facility] Course Hospital Course: Patient was taken to the operating room on the day of admission 12/01/18 where she underwent a right total knee replacement without complications. She was mobilized per protocol for total knee replacement. By 12/03/2018, she was independent with transfers and ambulation with a walker. She was afebrile and her incision was clean and dry. Hemoglobin was stable at 8.9 g at 48 hours postop. Neurovascular exam right foot was completely normal. It was felt that she had achieved all acute care goals and was ready for discharge home with home health PT services. Home Meds and New Rx's Prescriptions: New ibuprofen [IBU-200] 200 mg tablet 600 mg PO TID Qty: 90 RF: 0 hydrocodone-acetaminophen 5-325 mg tablet 1 tab PO Q6H PRN (Reason: pain) Qty: 20 RF: 0 Continued omeprazole 20 mg capsule,delayed release(DR/EC) 20 mg PO BID Qty: 180 RF: 4 gabapentin 300 mg capsule 300 mg PO TID Qty: 270 RF: 3 ferrous sulfate 325 mg (65 mg iron) tablet 325 mg PO DAILY Qty: 90 RF: 3 meloxicam 7.5 mg tablet 15 mg PO DAILY RF: 0 mirtazapine 7.5 mg tablet 7.5 mg PO HS Qty: 30 RF: 5 acetaminophen [Tylenol Arthritis Pain] 650 mg tablet extended release 1,300 mg PO BID RF: 0 estradiol [Vagifem] 10 MCG tablet 10 mcg VG as directed Qty: 30 RF: 6 calcium carbonate-vitamin D3 [Calcium 600 + D(3)] 600 mg(1,500mg) -400 unit tablet 1 tab PO BID Qty: 60 RF: 11 Vision Plus Lutein tablet 1 tab PO DAILY Qty: 90 RF: 4 amitriptyline 100 mg tablet 100 mg PO HS Qty: 90 RF: 4 cyanocobalamin (vitamin B-12) 1,000 mcg/mL solution 1,000 mcg IJ monthly Qty: 2 RF: 6 alendronate 70 mg tablet 70 mg PO weekly Qty: 12 RF: 4 hydroxyzine HCl 25 mg tablet 25 - 50 mg PO DIRECTED PRN (Reason: headache) Qty: 90 RF: 4 potassium chloride 20 mEq tablet extended release 20 meq PO . AFTERNOON Qty: 90 RF: 0 magnesium oxide 400 mg (241.3 mg magnesium) tablet 400 mg PO TID Qty: 180 RF: 2 fluconazole 150 mg tablet 150 mg PO ONCE PRN (Reason: vaginitis) Qty: 6 RF: 2 metformin 500 mg tablet,ER melissa.retention 24 hr See Patient Comments PO .COMPLEX RF: 0 simvastatin 80 MG tablet 80 mg PO HS RF: 0 docusate sodium [Colace] 100 mg capsule 100 mg PO DAILY RF: 0 cholecalciferol (vitamin D3) 1,000 unit tablet 1,000 unit PO BID RF: 0 Discharge Instructions Additional Instructions: Elevate R leg when sitting. Wear long stocking R during daytime only, for next 2 weeks. Apply cryocuff to R knee 4 times/day for 1 hour each time. May shower and get truman wet tomorrow. After showering, pat truman dry and cover them with light gauze dressing so they don't catch on pants. Use walker to walk. Walk every day as much as your pain allows. Home Health physical therapy for rehab of R total knee. Follow up with in 2 weeks. Take one baby aspirin(81 mg) every morning for 30 days to prevent blood clots in legs. Activity:: Activity as Tolerated Equipment/Supplies:: Walker Diet:: As Tolerated Discharge Orders Discharge Orders: Discharge Order (Routine); Ordered 12/03/18 Ordered By: Camron Pantoja DS: Data Vitals/I&O Vitals and I&O: Vital Signs Temperature 36.6 C 12/03/18 12:20 Temperature Source Tympanic 12/03/18 12:20 Pulse 58 L 12/03/18 12:20 Pulse Rhythm Regular 12/03/18 08:20 Respiratory Rate 16 12/03/18 12:20 Respiratory Effort Non-Labored 12/03/18 08:20 Respiratory Depth Normal 12/03/18 08:20 Respiratory Pattern Normal 12/03/18 08:20 Blood Pressure 124/62 12/03/18 12:20 Pulse Oximetry 95 12/03/18 12:20 Oxygen Delivery Method Room Air 12/03/18 12:20 Oxygen Flow Rate 0 12/03/18 12:20 Pain Level 0 12/03/18 12:20 Comment 12/01/18 11:30 Intake & Output 12/02/18 12/03/18 12/03/18 23:59 11:59 23:59 Intake Total 860 / 2434.583 490 / 730 240 / 730 Output Total 1000 / 1500 150 / 150 Balance -140 / 934.583 340 / 580 240 / 580 Intake: IV 380 / 1894.583 Oral 480 / 540 490 / 730 240 / 730 Output: Urine 1000 / 1500 150 / 150 Other: Urine Color Yellow Urine Appearance Clear Clear Urine Odor None Voiding Methods Toilet Toilet Labs on day of discharge: Labs from last 24 hours 12/03/18 06:58 WBC 8.10 RBC 2.93 L Hgb 8.9 L Hct 29.9 L MCV 102.0 H MCH 30.4 MCHC 29.8 L RDW 14.2 Plt Count 210 MPV 9.6 PFSH Social History Smoking/Tobacco Use Status: Former Tobacco Use Quit Date: 08/12/16 Alcohol Intake: never Drug use: Never Substance use type: does not use Caregiver/Support person: Yes (has termite control servicer home caregiver faraz [id number]) Details: lives in [facility] Household members: none Housing: apartment Pets and animals: Yes Pets and animals: cat(s) Sexually active: No Do you think of yourself as: straight/heterosexual Current gender identity: female Frequency: does not exercise Marilee/Denominational: Congregational Special marilee needs: No Do you feel safe in your relationship?: Yes
--- NOTE | 2018-12-03 13:51 | PDOC.HHF2F ---
1. Encounter Date and Reason I certify that RENATO TRINH was seen by Camron Pantoja MD on 12/03/18 and that I had a [id number] encounter with this patient that meets the physician face to face encounter requirements. 2. Clinical Findings Supporting Skilled Need and Homebound Status I certify that home health services are medically necessary, include either intermittent prison and/or physical/speech therapy, and that this patient is homebound in that absences from the home require considerable and taxing effort and are infrequent or of short duration, or are attributable to the need to receive medical care. [X] (a) Attached documentation from encounter provides clinical findings supporting skilled need and homebound status (including what assistance patient requires to leave the home). The encounter with the patient was in whole, or in part, for the following medical condition, which is the primary reason for home health care: POST-OP R TOTAL KNEE Detention: Physical Therapy: R total knee rehab. ROM and strengthening R knee post-op. Further gait-training with walker. WBAT to R leg. Speech Therapy: Homebound: Has R total knee on 12/01/18. Can't drive. Can't get in and out of house yet to attend outpatient PT. 3. Certification and Authentication I certify that I composed the above information based on my clinical judgement relating to this patient's medical condition and, if applicable, clinical findings communicated to me by the NPP or inpatient physician who performed the Home Health Referral. All further orders will be obtained through (Community Based Physician - PCP)
--- NOTE | 2018-12-03 13:55 | HHF2F_ITS ---
1. Encounter Date and Reason I certify that RENATO TRINH was seen by Camron Pantoja MD on 12/03/18 and that I had a [id number] encounter with this patient that meets the physician face to face encounter requirements. 2. Clinical Findings Supporting Skilled Need and Homebound Status I certify that home health services are medically necessary, include either intermittent group home and/or physical/speech therapy, and that this patient is homebound in that absences from the home require considerable and taxing effort and are infrequent or of short duration, or are attributable to the need to receive medical care. [X] (a) Attached documentation from encounter provides clinical findings supporting skilled need and homebound status (including what assistance patient requires to leave the home). The encounter with the patient was in whole, or in part, for the following medical condition, which is the primary reason for home health care: POST-OP R TOTAL KNEE Assisted: Physical Therapy: R total knee rehab. ROM and strengthening R knee post-op. Further gait-training with walker. WBAT to R leg. Speech Therapy: Homebound: Has R total knee on 12/01/18. Can't drive. Can't get in and out of house yet to attend outpatient PT. 3. Certification and Authentication I certify that I composed the above information based on my clinical judgement relating to this patient's medical condition and, if applicable, clinical findings communicated to me by the NPP or inpatient physician who performed the Home Health Referral. All further orders will be obtained through (Community Based Physician - PCP)
--- NOTE | 2018-12-03 15:48 | PDOC.CMDIS ---
LACE Index Scoring Tool - Questions: Length of Stay (in days): 2 Acuity (Admit via E.D.?): No E.D. Visits: 1 - Answers: Total Score: 3 Risk of Readmission: Low Risk Care Management Discharge Reason for Hospitalization: Post Op R Total Knee Discharge Plan: Lorie will return home when ready per MD. She will follow up with her community providers and resume current supports. Undetermined if she will require additional services at this time; CM will continue to follow. Anticipate Lorie will transport via [facility] W/C van coordinated by this caption writer. CM will notify Janeth Bailon [facility] of discharge timing to support coordination of homemaker support. Patient/Family Education Needs: Review discharge instructions, discuss Ask Me Three. Services Needed at Discharge: DME Agency (FWW), Home Delivered Meals, Home Health Care Services, Homemaking Services
--- NOTE | 2018-12-03 15:56 | CMDISCH_ITS ---
LACE Index Scoring Tool - Questions: Length of Stay (in days): 2 Acuity (Admit via E.D.?): No E.D. Visits: 1 - Answers: Total Score: 3 Risk of Readmission: Low Risk Care Management Discharge Reason for Hospitalization: Post Op R Total Knee Discharge Plan: Lorie will return home when ready per MD. She will follow up with her community providers and resume current supports. Undetermined if she will require additional services at this time; CM will continue to follow. Anticipate Lorie will transport via [facility] W/C van coordinated by this bond writer. CM will notify Janeth Bailon [facility] of discharge timing to support coordination of homemaker support. Patient/Family Education Needs: Review discharge instructions, discuss Ask Me Three. Services Needed at Discharge: DME Agency (FWW), Home Delivered Meals, Home Health Care Services, Homemaking Services
--- NOTE | 2018-12-05 17:29 | INDS_ITS ---
Date of service: 12/03/18 PT Notes Inpatient Physical Therapy Discharge Summary Dates: 12/03/2018 Dates of Service: 12/01/2018 through 12/03/2018 Referring Doctor: Camron Pantoja MD PT Orders: PT CONSULT: Mobilize postop right total knee replacement Precautions: Fall risk Patient Profile/Admitting Diagnosis: 73-year-old female with osteoarthritis of the right knee, status post right total knee replacement. 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 No charge was made in the completion of this documentation. Subjective: NT Objective: General Observation: NT Mental Status: Generally oriented and recognizes me from previous treatments, but mildly confused asking when she is going to have her surgery, etc. Pain: NT ROM: NT Strength: Has full functional use of her upper extremities and generally rated 5-/5. She is able to dorsiflex and plantarflex her ankles and digits and perform a supine straight leg raise on the right. Sensation: Intact to light touch throughout the digits of her right foot BED MOBILITY LEVELS/TRANSFERS Rolling independent Supine to sit independent Sit to supine independent Sit to stand independent independent Stand to sit independent Bed to chair independent Chair to bed dependent Gait: Per PT documentation in the morning of 12/03/2018, patient was able to tolerate level surface ambulation of 200 feet using F WW with WBAT on right requiring only supervision from DRAFTER SEISMOGRAPH. Balance: Static Sitting: Good Dynamic Sitting: Good Static Standing: Good Dynamic Standing: Fair Assessment: Patient is a 73 year old female referred to physical therapy services with the diagnosis of status post right total knee replacement. Patient presents with clinical signs and symptoms consistent with this diagnosis, as demonstrated by the following impairment level findings: Requiring assistance with bed mobility activities, contact guarding with ambulation along with distance limited to 5 feet, etc. Impairments are contributing to the following functional limitations: AMPAC score. Goals: Goals X1 week 1. Supine-Sit independent MET 2. Sit-Supine independent MET 3. Sit-Stand dependent MET 4. Stand-Sit independent MET 5. Bed-Chair independent MET 6. Chair-Bed independent MET 7. Gait ambulating with a wheeled walker with contact guarding for 20 feet weightbearing as tolerated in the right lower extremity MET 8. Stairs and descend 2 steps with a railing NOT MET 9. Independent with her dressing personal hygiene skills NOT MET 10. Home exercise program independent NOT MET DISCHARGE RECOMMENDATIONS: Patient to discharge to home today with home health PT/OT services in order to maximize functional mobility level, assess home safety, and establish/implement functional maintenance program for strengthening and follow reduction. TREATMENT CODE/TIME: N/A. Thank you for this referral. Carmen Lawrence, PT, DPT, CLT [facility]
== END 2018-12-03 16:20 | disposition home health service (06) | DRG 470 ==
LOC: PDS 06:08 → MS 10:26
PROVIDERS: Admitting Provider Orthopaedic Surgery; PCP Family Medicine; Visit Provider Orthopaedic Surgery
PROC: 0SRC0J9 Replacement of Right Knee Joint with Synthetic Substitute, Cemented, Open Approach (ICD-10-PCS; CPT 27447; principal; 2018-12-01 07:30)
DX: M17.11 Unilateral primary osteoarthritis, right knee (principal); Z96.651 Presence of right artificial knee joint; G35 Multiple sclerosis; E78.5 Hyperlipidemia, unspecified
CPT/HCPCS: 27447; 36415; 76942; 85027; 97110; 97162; 97530; NC; 73560; J0690; J1100; J1650; J1885; J2250; J2405; J3010; L1830

== ENCOUNTER 2018-12-04 09:41 | Emergency (ER) | payer MEDICARE, MEDICAID, SELFPAY ==
[2018-12-04 09:51] VITALS: BP 142/64; PULSE 104; RESP 18; TEMP 37.3; O2SAT 93
--- NOTE | 2018-12-04 10:06 | W.ED.GENAD ---
Discharge Plan Disposition Patient Disposition: SNF (LEVEL 1) [facility] Condition: Improving Discharge Details Chief Complaint: Orthopedic Clinical Impression: Post-operative pain Primary Care Provider: Gris Bates ED Provider: Azucena Frazier Home Meds and New Rx's Prescriptions: New hydrocodone-acetaminophen [[place]] 5-325 mg tablet 1 tab PO Q6H PRN (Reason: pain) Qty: 7 RF: 0 Continued omeprazole 20 mg capsule,delayed release(DR/EC) 20 mg PO BID Qty: 180 RF: 4 gabapentin 300 mg capsule 300 mg PO TID Qty: 270 RF: 3 ferrous sulfate 325 mg (65 mg iron) tablet 325 mg PO DAILY Qty: 90 RF: 3 meloxicam 7.5 mg tablet 15 mg PO DAILY RF: 0 mirtazapine 7.5 mg tablet 7.5 mg PO HS Qty: 30 RF: 5 acetaminophen [Tylenol Arthritis Pain] 650 mg tablet extended release 1,300 mg PO BID RF: 0 estradiol [Vagifem] 10 MCG tablet 10 mcg VG as directed Qty: 30 RF: 6 calcium carbonate-vitamin D3 [Calcium 600 + D(3)] 600 mg(1,500mg) -400 unit tablet 1 tab PO BID Qty: 60 RF: 11 Vision Plus Lutein tablet 1 tab PO DAILY Qty: 90 RF: 4 amitriptyline 100 mg tablet 100 mg PO HS Qty: 90 RF: 4 alendronate 70 mg tablet 70 mg PO weekly Qty: 12 RF: 4 hydroxyzine HCl 25 mg tablet 25 - 50 mg PO DIRECTED PRN (Reason: headache) Qty: 90 RF: 4 potassium chloride 20 mEq tablet extended release 20 meq PO . AFTERNOON Qty: 90 RF: 0 magnesium oxide 400 mg (241.3 mg magnesium) tablet 400 mg PO TID Qty: 180 RF: 2 fluconazole 150 mg tablet 150 mg PO ONCE PRN (Reason: vaginitis) Qty: 6 RF: 2 metformin 500 mg tablet,ER melissa.retention 24 hr See Patient Comments PO .COMPLEX RF: 0 simvastatin 80 MG tablet 80 mg PO HS RF: 0 docusate sodium [Colace] 100 mg capsule 100 mg PO DAILY RF: 0 cholecalciferol (vitamin D3) 1,000 unit tablet 1,000 unit PO BID RF: 0 ibuprofen [IBU-200] 200 mg tablet 600 mg PO TID Qty: 90 RF: 0 hydrocodone-acetaminophen 5-325 mg tablet 1 tab PO Q6H PRN (Reason: pain) Qty: 20 RF: 0 No Action aspirin [Aspir-81] 81 mg Tablet,Delayed Release (Dr/Ec) 81 mg PO DAILY RF: 0 magnesium hydroxide [Milk of Magnesia] 400 mg/5 mL Suspension 30 ml PO HS PRN (Reason: Constipation) RF: 0 polyethylene glycol 3350 [Miralax] 17 gram/dose Powder 17 g PO DAILY PRNRF: 0 Discharge Instructions Instructions: Joint Replacement Surgery (GEN) Additional Instructions: Encourage hydration. Please follow orthopedic postoperative instructions and continue to work with physical therapy. Please use your walker to help with ambulation. Hydrocodone/acetaminophen as prescribed for pain. If you develop any new or worsening symptoms please seek care urgently once again. Keep follow up appointments as previously scheduled. Referrals: Gris Bates MD [Primary Care Provider] - Camron Pantoja MD [[facility] STAFF PHYSICIAN] - Discharge Data Discharge Date/Time-TO BE ENTERED AT DEPARTURE: 12/04/18 14:25 Medical Decision Making Patient is 73-year-old female presents today with chief complaint of right knee pain. She is brought in via EMS from home where she lives alone but does have home care services for 4 hours each day. Patient was discharged yesterday after having a uncomplicated right total knee replacement completed by Dr. Pantoja. At the time of discharge yesterday she had been doing well with physical therapy was discharged home with ibuprofen and hydrocodone. Patient reports that her pain has greatly increased and she notes swelling in the right knee. She does have a thigh-high ELIZABETH hose on the right knee as well as the postoperative dressings in place. Patient is admittedly forgetful and associates this with her MS. She did not take any of her pain medications as prescribed. Reports that her pain is been limiting her with ambulation. No trauma. Denies chest pain, shortness of breath. Denies any fevers or chills. Currently afebrile. Patient slightly tachycardic at 104, this may be associated with pain. We will recheck this Reviewed discharge instructions and plan to treat pain as previously advised by Dr. Pantoja. I did speak with Dr. Pantoja who reports the patient is forgetful but has been very insistent on going home yesterday. Plan to speak with customer care specialist regarding continued home services for the patient and she is still forgetful and is having such difficulty with her pain. He would be very advantageous to the patient to have a reminder to take her pain medications change control coordinator was able to set up [facility] continued care in the postoperative setting. She will follow post operative instructions as set forth by orthoepdics. Will seek care with new/worsening symptoms. All of her questions and concerns were addressed, she is in agrement iwth this plan. HPI General Mode of arrival: EMS. Date/Time Provider Initiated Documentation: 12/04/18 09:42. Limitations to Documentation: no limitations. Information obtained by: patient, EMS and RN notes reviewed. History of Present Illness 73 year old F presents to the emergency department with the chief complaint of Right knee pain, described as severe, with intensity rated at 10. Quality is described as aching and sharp, and is localized to the right and lower extremity. Patient reports no radiation. Patient started experiencing this hour(s) and it has been constant. No relieving factors improve symptom(s), No exacerbating factors reported . Patient notes no other symptoms.; denies chest pain, cough, fever/chills, headaches, nausea/vomiting, rash, shortness of breath and weakness. Patient did receive the following treatments prior to arrival, none Related Data Home Medications Medication Instructions Recorded Confirmed estradiol [Vagifem] 10 mcg VG as directed #30 tab 04/25/16 12/06/18 calcium carbonate 600 mg (1,500 1 tab PO BID #60 tab-cap 06/20/18 12/06/18 mg)-vitamin D3 400 unit tablet iqsxabatecpu-vatugilt-hpoftt tablet 1 tab PO DAILY #90 tab-cap 07/26/18 12/06/18 meloxicam 7.5 mg tablet 15 mg PO DAILY tab-cap 08/25/18 12/06/18 mirtazapine 7.5 mg tablet 7.5 mg PO HS #30 tab 08/25/18 12/06/18 acetaminophen ER 650 mg 1,300 mg PO BID tab 09/01/18 12/06/18 tablet,extended release ferrous sulfate 325 mg (65 mg 325 mg PO DAILY #90 tab-cap 09/01/18 12/06/18 iron) tablet gabapentin 300 mg capsule 300 mg PO TID #270 tab-cap 09/01/18 12/06/18 metformin ER 500 mg 24 hr See Rx Instructions PO .COMPLEX 09/01/18 12/06/18 tablet,extended release omeprazole 20 mg capsule,delayed 20 mg PO BID #180 tab-cap 09/01/18 12/06/18 release alendronate 70 mg tablet 70 mg PO weekly #12 tab 09/22/18 12/06/18 amitriptyline 100 mg tablet 100 mg PO HS #90 tab-cap 09/22/18 12/06/18 hydroxyzine HCl 25 mg tablet 25 - 50 mg PO DIRECTED PRN #90 11/07/18 12/06/18 tab cholecalciferol (vitamin D3) 1,000 unit PO BID 11/21/18 12/06/18 docusate sodium [Colace] 100 mg PO DAILY 11/21/18 12/06/18 simvastatin 80 mg PO HS 11/21/18 12/06/18 magnesium oxide 400 mg (241.3 mg 400 mg PO TID #180 tab-cap 11/24/18 12/06/18 magnesium) tablet potassium chloride ER 20 mEq 20 meq PO . AFTERNOON #90 tab 11/24/18 12/06/18 tablet,extended release fluconazole 150 mg tablet 150 mg PO ONCE PRN #6 tab-cap 11/26/18 12/06/18 hydrocodone-acetaminophen 1 tab PO Q6H PRN #20 tab 12/03/18 12/06/18 ibuprofen [IBU-200] 600 mg PO TID #90 tab 12/03/18 12/06/18 hydrocodone-acetaminophen [[place]] 1 tab PO Q6H PRN #7 tab 12/04/18 12/06/18 aspirin [Aspir-81] 81 mg PO DAILY 12/06/18 12/06/18 magnesium hydroxide [Milk of 30 ml PO HS PRN 12/06/18 12/06/18 Magnesia] polyethylene glycol 3350 [Miralax] 17 g PO DAILY PRN 12/06/18 12/06/18 Previous Rx's Medication Instructions Recorded calcium carbonate 600 mg (1,500 1 tab PO BID #60 tab-cap 06/20/18 mg)-vitamin D3 400 unit tablet zkvpyncohyot-xcqdkeqx-pnmdcf tablet 1 tab PO DAILY #90 tab-cap 07/26/18 mirtazapine 7.5 mg tablet 7.5 mg PO HS #30 tab 08/25/18 ferrous sulfate 325 mg (65 mg 325 mg PO DAILY #90 tab-cap 09/01/18 iron) tablet gabapentin 300 mg capsule 300 mg PO TID #270 tab-cap 09/01/18 omeprazole 20 mg capsule,delayed 20 mg PO BID #180 tab-cap 09/01/18 release alendronate 70 mg tablet 70 mg PO weekly #12 tab 09/22/18 amitriptyline 100 mg tablet 100 mg PO HS #90 tab-cap 09/22/18 hydroxyzine HCl 25 mg tablet 25 - 50 mg PO DIRECTED PRN #90 11/07/18 tab magnesium oxide 400 mg (241.3 mg 400 mg PO TID #180 tab-cap 11/24/18 magnesium) tablet potassium chloride ER 20 mEq 20 meq PO . AFTERNOON #90 tab 11/24/18 tablet,extended release fluconazole 150 mg tablet 150 mg PO ONCE PRN #6 tab-cap 11/26/18 hydrocodone-acetaminophen 1 tab PO Q6H PRN #20 tab 12/03/18 ibuprofen [IBU-200] 600 mg PO TID #90 tab 12/03/18 hydrocodone-acetaminophen [[place]] 1 tab PO Q6H PRN #7 tab 12/04/18 Allergies Allergy/AdvReac Type Severity Reaction Status Date / Time Penicillins Allergy Intermediate Skin Rash Unverified 12/06/18 16:54 miconazole Allergy Skin Rash Unverified 12/06/18 16:54 povidone-iodine Allergy Skin Rash Unverified 12/06/18 16:54 Sulfa (Sulfonamide Allergy Skin Rash Unverified 12/06/18 16:54 Antibiotics) General Stated Complaint: Orthopedic FRANCIS: 3 Review of Systems Constitutional Reports as per HPI, Denies chills, Denies fever(s), Denies headache(s) and Denies weakness ENT Denies headache(s) Cardiovascular Reports as per HPI Respiratory Reports as per HPI and Denies cough Musculoskeletal Reports as per HPI and Denies tingling Integumentary/Breasts Reports as per HPI, Denies rash and Reports wounds (incision) Neurologic Reports as per HPI, Denies headache(s), Denies tingling, Denies paresthesias and Denies weakness [facility] Medical History Diverticulitis (Chronic) Surgical History History of repair of hiatal hernia (Acute) History of bowel resection (Acute) H/O hemorrhoidectomy (Chronic) History of cataract surgery (Chronic) Hx of arthroscopy of right knee (Chronic) Hx of hysterectomy (Chronic) Tenosynovitis, de Quervain (Resolved) Social History Smoking/Tobacco Use Status: Former Tobacco Use Quit Date: 08/12/16 Alcohol Intake: never Drug use: Never Substance use type: does not use Caregiver/Support person: Yes (has sports book board attendant home caregiver faraz [id number]) Details: lives [facility] Household members: none Housing: apartment Pets and animals: Yes Pets and animals: cat(s) Sexually active: No Do you think of yourself as: straight/heterosexual Current gender identity: female Frequency: does not exercise Marilee/Yarsani: Denominational Special marilee needs: No Do you feel safe in your relationship?: Yes Additional Social history: in a facility Exam Const General: cooperative, healthy appearing, comfortable, no acute distress, well developed and well groomed Nutritional Appearance: average body habitus and well nourished Orientation: alert and awake Resp Effort & Inspection: normal respiratory effort, able to speak in complete sentences and no respiratory distress Auscultation: clear to auscultation bilaterally Cardio Rate: regular rate Rhythm: regular rhythm Heart Sounds: S1 normal and S2 normal Skin Trauma: other (Patient has a well-healing incision on the right knee consistent with TKR ) Neuro General: alert, awake and oriented x3 Cognition: normal cognition Speech: speech normal Gait: gait abnormal Motor: muscle tone normal throughout Extrem Left lower extremity: normal capillary refill and knee (Right knee is swollen, range of motion is not assessed); abnormal to inspection (No signs of infection incision, 2+ distal pulses, calf soft and nontender), abnormal ROM, no cyanosis and no edema Psych Appearance: grossly normal and well kempt Mental Status: mental status grossly normal Speech and Movement: speech and movement normal Course Vital Signs Temperature 37.3 C 12/04/18 09:51 Pulse 104 H 12/04/18 09:51 Respiratory Rate 18 12/04/18 09:51 Blood Pressure 142/64 H 12/04/18 09:51 Pulse Oximetry 93 L 12/04/18 09:51 Temperature 37.3 C 12/04/18 09:51 Temperature Source Oral 12/04/18 09:51 Pulse 104 H 12/04/18 09:51 Respiratory Rate 18 12/04/18 09:51 Respiratory Effort Non-Labored 12/04/18 09:56 Blood Pressure 142/64 H 12/04/18 09:51 Blood Pressure Position Supine 12/04/18 09:51 Pulse Oximetry 93 L 12/04/18 09:51 Oxygen Delivery Method Room Air 12/04/18 09:51 Oxygen Flow Rate 0 12/04/18 09:51 Pain Level 10 12/04/18 09:59
--- NOTE | 2018-12-04 10:13 | ED.GENADUL_ITS ---
Discharge Plan Disposition Patient Disposition: SNF (LEVEL 1) [facility] Condition: Improving Discharge Details Chief Complaint: Orthopedic Clinical Impression: Post-operative pain Primary Care Provider: Gris Bates ED Provider: Azucena Frazier Home Meds and New Rx's Prescriptions: New hydrocodone-acetaminophen [[place]] 5-325 mg tablet 1 tab PO Q6H PRN (Reason: pain) Qty: 7 RF: 0 Continued omeprazole 20 mg capsule,delayed release(DR/EC) 20 mg PO BID Qty: 180 RF: 4 gabapentin 300 mg capsule 300 mg PO TID Qty: 270 RF: 3 ferrous sulfate 325 mg (65 mg iron) tablet 325 mg PO DAILY Qty: 90 RF: 3 meloxicam 7.5 mg tablet 15 mg PO DAILY RF: 0 mirtazapine 7.5 mg tablet 7.5 mg PO HS Qty: 30 RF: 5 acetaminophen [Tylenol Arthritis Pain] 650 mg tablet extended release 1,300 mg PO BID RF: 0 estradiol [Vagifem] 10 MCG tablet 10 mcg VG as directed Qty: 30 RF: 6 calcium carbonate-vitamin D3 [Calcium 600 + D(3)] 600 mg(1,500mg) -400 unit tablet 1 tab PO BID Qty: 60 RF: 11 Vision Plus Lutein tablet 1 tab PO DAILY Qty: 90 RF: 4 amitriptyline 100 mg tablet 100 mg PO HS Qty: 90 RF: 4 alendronate 70 mg tablet 70 mg PO weekly Qty: 12 RF: 4 hydroxyzine HCl 25 mg tablet 25 - 50 mg PO DIRECTED PRN (Reason: headache) Qty: 90 RF: 4 potassium chloride 20 mEq tablet extended release 20 meq PO . AFTERNOON Qty: 90 RF: 0 magnesium oxide 400 mg (241.3 mg magnesium) tablet 400 mg PO TID Qty: 180 RF: 2 fluconazole 150 mg tablet 150 mg PO ONCE PRN (Reason: vaginitis) Qty: 6 RF: 2 metformin 500 mg tablet,ER melissa.retention 24 hr See Patient Comments PO .COMPLEX RF: 0 simvastatin 80 MG tablet 80 mg PO HS RF: 0 docusate sodium [Colace] 100 mg capsule 100 mg PO DAILY RF: 0 cholecalciferol (vitamin D3) 1,000 unit tablet 1,000 unit PO BID RF: 0 ibuprofen [IBU-200] 200 mg tablet 600 mg PO TID Qty: 90 RF: 0 hydrocodone-acetaminophen 5-325 mg tablet 1 tab PO Q6H PRN (Reason: pain) Qty: 20 RF: 0 No Action aspirin [Aspir-81] 81 mg Tablet,Delayed Release (Dr/Ec) 81 mg PO DAILY RF: 0 magnesium hydroxide [Milk of Magnesia] 400 mg/5 mL Suspension 30 ml PO HS PRN (Reason: Constipation) RF: 0 polyethylene glycol 3350 [Miralax] 17 gram/dose Powder 17 g PO DAILY PRNRF: 0 Discharge Instructions Instructions: Joint Replacement Surgery (GEN) Additional Instructions: Encourage hydration. Please follow orthopedic postoperative instructions and continue to work with physical therapy. Please use your walker to help with ambulation. Hydrocodone/acetaminophen as prescribed for pain. If you develop any new or worsening symptoms please seek care urgently once again. Keep follow up appointments as previously scheduled. Referrals: Gris Bates MD [Primary Care Provider] - Camron Pantoja MD [[facility] STAFF PHYSICIAN] - Discharge Data Discharge Date/Time-TO BE ENTERED AT DEPARTURE: 12/04/18 14:25 Medical Decision Making Patient is 73-year-old female presents today with chief complaint of right knee pain. She is brought in via EMS from home where she lives alone but does have home care services for 4 hours each day. Patient was discharged yesterday after having a uncomplicated right total knee replacement completed by Dr. Pantoja. At the time of discharge yesterday she had been doing well with physical therapy was discharged home with ibuprofen and hydrocodone. Patient reports that her pain has greatly increased and she notes swelling in the right knee. She does have a thigh-high ELIZABETH hose on the right knee as well as the postoperative dressings in place. Patient is admittedly forgetful and associates this with her MS. She did not take any of her pain medications as prescribed. Reports that her pain is been limiting her with ambulation. No trauma. Denies chest pain, shortness of breath. Denies any fevers or chills. Currently afebrile. Patient slightly tachycardic at 104, this may be associated with pain. We will recheck this Reviewed discharge instructions and plan to treat pain as previously advised by Dr. Pantoja. I did speak with Dr. Pantoja who reports the patient is forgetful but has been very insistent on going home yesterday. Plan to speak with post acute care nurse regarding continued home services for the patient and she is still forgetful and is having such difficulty with her pain. He would be very advantageous to the patient to have a reminder to take her pain medications palliative care coordinator was able to set up transfer [facility] for continued care in the postoperative setting. She will follow post operative instructions as set forth by orthoepdics. Will seek care with new/worsening symptoms. All of her questions and concerns were addressed, she is in agrement iw this plan. HPI General Mode of arrival: EMS . Date/Time Provider Initiated Documentation: 12/04/18 09:42 . Limitations to Documentation: no limitations . Information obtained by: patient, EMS and RN notes reviewed . History of Presen t Illness 73 year old F presents to the emergency department with the chief complaint of Right knee pain, described as severe, with intensity rated at 10. Quality is described as aching and sharp, and is localized to the right and lower extremity. Patient reports no radiation. Patient started experiencing this hour(s) and it has been constant. No relieving factors improve symptom(s), No exacerbating factors reported . Patient notes no other symptoms.; denies chest pain, cough, fever/chills, headaches, nausea/vomiting, rash, shortness of breath and weakness. Patient did receive the following treatments prior to arrival, none Related Data Home Medications Medication Instructions Recorded Confirmed estradiol [Vagifem] 10 mcg VG as directed #30 tab 04/25/16 12/06/18 calcium carbonate 600 mg (1,500 1 tab PO BID #60 tab-cap 06/20/18 12/06/18 mg)-vitamin D3 400 unit tablet fjkjalvdrhsv-nsjnvfww-dqjufs tablet 1 tab PO DAILY #90 tab-cap 07/26/18 12/06/18 meloxicam 7.5 mg tablet 15 mg PO DAILY tab-cap 08/25/18 12/06/18 mirtazapine 7.5 mg tablet 7.5 mg PO HS #30 tab 08/25/18 12/06/18 acetaminophen ER 650 mg 1,300 mg PO BID tab 09/01/18 12/06/18 tablet,extended release ferrous sulfate 325 mg (65 mg 325 mg PO DAILY #90 tab-cap 09/01/18 12/06/18 iron) tablet gabapentin 300 mg capsule 300 mg PO TID #270 tab-cap 09/01/18 12/06/18 metformin ER 500 mg 24 hr See Rx Instructions PO .COMPLEX 09/01/18 12/06/18 tablet,extended release omeprazole 20 mg capsule,delayed 20 mg PO BID #180 tab-cap 09/01/18 12/06/18 release alendronate 70 mg tablet 70 mg PO weekly #12 tab 09/22/18 12/06/18 amitriptyline 100 mg tablet 100 mg PO HS #90 tab-cap 09/22/18 12/06/18 hydroxyzine HCl 25 mg tablet 25 - 50 mg PO DIRECTED PRN #90 11/07/18 12/06/18 tab cholecalciferol (vitamin D3) 1,000 unit PO BID 11/21/18 12/06/18 docusate sodium [Colace] 100 mg PO DAILY 11/21/18 12/06/18 simvastatin 80 mg PO HS 11/21/18 12/06/18 magnesium oxide 400 mg (241.3 mg 400 mg PO TID #180 tab-cap 11/24/18 12/06/18 magnesium) tablet potassium chloride ER 20 mEq 20 meq PO . AFTERNOON #90 tab 11/24/18 12/06/18 tablet,extended release fluconazole 150 mg tablet 150 mg PO ONCE PRN #6 tab-cap 11/26/18 12/06/18 hydrocodone-acetaminophen 1 tab PO Q6H PRN #20 tab 12/03/18 12/06/18 ibuprofen [IBU-200] 600 mg PO TID #90 tab 12/03/18 12/06/18 hydrocodone-acetaminophen [[place]] 1 tab PO Q6H PRN #7 tab 12/04/18 12/06/18 aspirin [Aspir-81] 81 mg PO DAILY 12/06/18 12/06/18 magnesium hydroxide [Milk of 30 ml PO HS PRN 12/06/18 12/06/18 Magnesia] polyethylene glycol 3350 [Miralax] 17 g PO DAILY PRN 12/06/18 12/06/18 Previous Rx's Medication Instructions Recorded calcium carbonate 600 mg (1,500 1 tab PO BID #60 tab-cap 06/20/18 mg)-vitamin D3 400 unit tablet kikjakkxrpdf-rqpgvizm-fkhrwt tablet 1 tab PO DAILY #90 tab-cap 07/26/18 mirtazapine 7.5 mg tablet 7.5 mg PO HS #30 tab 08/25/18 ferrous sulfate 325 mg (65 mg 325 mg PO DAILY #90 tab-cap 09/01/18 iron) tablet gabapentin 300 mg capsule 300 mg PO TID #270 tab-cap 09/01/18 omeprazole 20 mg capsule,delayed 20 mg PO BID #180 tab-cap 09/01/18 release alendronate 70 mg tablet 70 mg PO weekly #12 tab 09/22/18 amitriptyline 100 mg tablet 100 mg PO HS #90 tab-cap 09/22/18 hydroxyzine HCl 25 mg tablet 25 - 50 mg PO DIRECTED PRN #90 11/07/18 tab magnesium oxide 400 mg (241.3 mg 400 mg PO TID #180 tab-cap 11/24/18 magnesium) tablet potassium chloride ER 20 mEq 20 meq PO . AFTERNOON #90 tab 11/24/18 tablet,extended release fluconazole 150 mg tablet 150 mg PO ONCE PRN #6 tab-cap 11/26/18 hydrocodone-acetaminophen 1 tab PO Q6H PRN #20 tab 12/03/18 ibuprofen [IBU-200] 600 mg PO TID #90 tab 12/03/18 hydrocodone-acetaminophen [[place]] 1 tab PO Q6H PRN #7 tab 12/04/18 Allergies Allergy/AdvReac Type Severity Reaction Status Date / Time Penicillins Allergy Intermediate Skin Rash Unverified 12/06/18 16:54 miconazole Allergy Skin Rash Unverified 12/06/18 16:54 povidone-iodine Allergy Skin Rash Unverified 12/06/18 16:54 Sulfa (Sulfonamide Allergy Skin Rash Unverified 12/06/18 16:54 Antibiotics) General Stated Complaint: Orthopedic FRANCIS: 3 Review of Systems Constitutional Reports as per HPI, Denies chills, Denies fever(s), Denies headache(s) and Denies weakness ENT Denies headache(s) Cardiovascular Reports as per HPI Respiratory Reports as per HPI and Denies cough Musculoskeletal Reports as per HPI and Denies tingling Integumentary/Breasts Reports as per HPI, Denies rash and Reports wounds (incision) Neurologic Reports as per HPI, Denies headache(s), Denies tingling, Denies paresthesias and Denies weakness [facility] Medical History Diverticulitis (Chronic) Surgical History History of repair of hiatal hernia (Acute) History of bowel resection (Acute) H/O hemorrhoidectomy (Chronic) History of cataract surgery (Chronic) Hx of arthroscopy of right knee (Chronic) Hx of hysterectomy (Chronic) Tenosynovitis, de Quervain (Resolved) Social History Smoking/Tobacco Use Status: Former Tobacco Use Quit Date: 08/12/16 Alcohol Intake: never Drug use: Never Substance use type: does not use Caregiver/Support person: Yes (has [employer] home caregiver faraz [id number]) Details: lives in [facility] Household members: none Housing: apartment Pets and animals: Yes Pets and animals: cat(s) Sexually active: No Do you think of yourself as: straight/heterosexual Current gender identity: female Frequency: does not exercise Marilee/Pentecostal: Holiness Special marilee needs: No Do you feel safe in your relationship?: Yes Additional Social history: in a facility Exam Const General: cooperative, healthy appearing, comfortable, no acute distress, well developed and well groomed Nutritional Appearance: average body habitus and well nourished Orientation: alert and awake Resp Effort & Inspection: normal respiratory effort, able to speak in complete sentences and no respiratory distress Auscultation: clear to auscultation bilaterally Cardio Rate: regular rate Rhythm: regular rhythm Heart Sounds: S1 normal and S2 normal Skin Trauma: other (Patient has a well-healing incision on the right knee consistent with TKR ) Neuro General: alert, awake and oriented x3 Cognition: normal cognition Speech: speech normal Gait: gait abnormal Motor: muscle tone normal throughout Extrem Left lower extremity: normal capillary refill and knee (Right knee is swollen, range of motion is not assessed); abnormal to inspection (No signs of infection incision, 2+ distal pulses, calf soft and nontender), abnormal ROM, no cyanosis and no edema Psych Appearance: grossly normal and well kempt Mental Status: mental status grossly normal Speech and Movement: speech and movement normal Course Vital Signs Temperature 37.3 C 12/04/18 09:51 Pulse 104 H 12/04/18 09:51 Respiratory Rate 18 04/25/19 09:51 Blood Pressure 142/64 H 12/04/18 09:51 Pulse Oximetry 93 L 12/04/18 09:51 Temperature 37.3 C 12/04/18 09:51 Temperature Source Oral 12/04/18 09:51 Pulse 104 H 12/04/18 09:51 Respiratory Rate 18 12/04/18 09:51 Respiratory Effort Non-Labored 12/04/18 09:56 Blood Pressure 142/64 H 12/04/18 09:51 Blood Pressure Position Supine 12/04/18 09:51 Pulse Oximetry 93 L 12/04/18 09:51 Oxygen Delivery Method Room Air 12/04/18 09:51 Oxygen Flow Rate 0 12/04/18 09:51 Pain Level 10 12/04/18 09:59
[2018-12-04] MEDS: Ibuprofen 600 MG TAB PO (10:20)
[2018-12-04] MEDS: HYDROcodone 5/Acetaminophen 325 TAB PO (10:20)
[2018-12-04 14:25] VITALS: BP 117/64; PULSE 107; RESP 16; TEMP 37.3; O2SAT 96
--- NOTE | 2018-12-04 18:57 | PDOC.ERCMPRO ---
- If Service Date Differs Date of service: 12/04/18 Time of Service: 18:57 Care Management Progress Note CM met with Lorie at the bedside at the request of provider. Lorie was discharged on 12/03/18 she went home with new home health services. Lorie went home and began to have increased pain when home health arrived to admit her to services she was sent to the ED via ambulance. Lorie states that she went home and was not able to control her pain. Of note she was discharged home and left her walker in the room. She attempted to ambulate without assisted device and developed increase pain. She states that she attempted to make it to the rest room at home and urinated on the floor in route. Lorie receives choices for care highest needs her CM is Janeth Bailon. Ute has chronic health conditions that may prolong her recovery time including MS. Today she is willing to have a referral faxed to [facility]. CM reviewed all the local SNF facilities, she declines the [facility], [facility] or [facility]. Lorie is resistant to SNF placement she is worried about sharing a room and not having a television. She states she does not like to be around others describes symptoms of anxiety when she is. CM did speak with Janeth and she is going to meet with her at [facility]. CM completed paperwork and faxed it to admissions, patient offered a bed and accepted the offer. CM coordinated RCT wheelchair van and requested 1430 filler picker and drop of time. Questions related to benefits where answered. CM notified the provider and [facility] of Pt transfer to [facility].
--- NOTE | 2018-12-04 19:07 | CMPROGNOTE_ITS ---
- If Service Date Differs Date of service: 12/04/18 Time of Service: 18:57 Care Management Progress Note CM met with Lorie at the bedside at the request of provider. Lorie was discharged on 12/03/18 she went home with new home health services. Lorie went home and began to have increased pain when home health arrived to admit her to services she was sent to the ED via ambulance. Lorie states that she went home and was not able to control her pain. Of note she was discharged home and left her walker in the room. She attempted to ambulate without assisted device and developed increase pain. She states that she attempted to make it to the rest room at home and urinated on the floor in route. Lorie receives choices for care highest needs her CM is Janeth Bailon. Ute has chronic health conditions that may prolong her recovery time including MS. Today she is willing to have a referral faxed to [facility]. CM reviewed all the local SNF facilities, she declines the [facility], [facility] or [facility]. Lorie is resistant to SNF placement she is worried about sharing a room and not having a television. She states she does not like to be around others describes symptoms of anxiety when she is. CM did speak with Janeth and she is going to meet with her at [facility]. CM completed paperwork and faxed it to admissions, patient offered a bed and accepted the offer. CM coordinated RCT wheelchair van and requested 1430 picker feeder and drop of time. Questions related to benefits where answered. CM notified the provider and [facility] of Pt transfer to [facility].
== END 2018-12-04 14:25 | disposition skilled nursing facility (03) ==
PROVIDERS: Emergency Provider Physician Assistant; PCP Family Medicine
DX: G89.18 Other acute postprocedural pain (principal); T84.84XA Pain due to internal orthopedic prosthetic devices, implants and grafts, initial encounter; G35 Multiple sclerosis; Z96.651 Presence of right artificial knee joint; M25.561 Pain in right knee; E11.9 Type 2 diabetes mellitus without complications; I10 Essential (primary) hypertension
CPT/HCPCS: 99283

== ENCOUNTER 2018-12-06 16:54 | Inpatient (IN) | payer MEDICARE, MEDICAID, SELFPAY ==
[2018-12-06] VITALS (10 sets, daily range): BP systolic 125–151; BP diastolic 66–77; PULSE 78–102; RESP 12–23; TEMP 36.5–37.3; O2SAT 90–98
--- NOTE | 2018-12-06 17:03 | DI.CT_ITS ---
SYMPTOM/DIAGNOSIS: DIFFUSE ABD PAIN, VOMITING, ? SMALL BOWEL OBSTRUCTION ABDOMEN AND PELVIC CT: CT scan of the abdomen and pelvis was performed without intravenous contrast material. Oral contrast was administered. Comparison is made with 06/07/18. There is minimal linear atelectasis or scarring in the lung base. Note is made of a small pericardial effusion. There is diffuse decreased attenuation of the liver consistent with fatty infiltration. The gallbladder is unremarkable. No biliary ductal dilatation is seen. The pancreas and spleen are unremarkable. There are stable bilateral adrenal nodules, these are unchanged dating back to 01/19/12. The kidneys show no evidence of obstruction. There is a calcification in the right kidney which may represent non obstructing stone. The urinary bladder is intact. There is a small amount of air in the dependent portion of the urinary bladder. This may represent recent catheterization. Please correlate clinically. The patient appears to be status post hysterectomy. There is atherosclerosis of the abdominal aorta but no aneurysmal dilatation is seen. There is marked dilatation of the proximal bowel including the stomach and proximal small bowel. There does appear to be a transition. The transition to normal small bowel appears to be in the right lower quadrant at the area of suture material. The colon is of normal caliber. There is extensive diverticulosis of the colon but no evidence of acute diverticulitis. No findings to suggest an acute appendicitis are present. No free air, free fluid or adenopathy is seen in the abdomen or pelvis. Degenerative changes are seen in the spine. The sclerotic focus in the sacrum is unchanged and is most consistent with a bone island. This was present on the CT scan from 01/19/12. IMPRESSION: 1. Severe dilatation of the proximal small bowel and stomach suggesting small bowel obstruction. The transition appears to lie in the right lower quadrant at the level of the prior suture material. 2. Trace focus of air in the urinary bladder. This may reflect recent catheterization. 3. Colonic diverticulosis but no evidence of acute diverticulitis.
--- NOTE | 2018-12-06 17:07 | ED.GENADUL_ITS ---
Discharge Plan Disposition Patient Disposition: [facility] INPATIENT Condition: Stable Discharge Details Chief Complaint: Abd Prob Clinical Impression: Small bowel obstruction Admit Date/Time: 12/06/18 21:22 Admit Provider: Kelley Almeida Attending Provider: Kelley Almeida Primary Care Provider: Gris Bates ED Provider: Huang Kumar Discharge Data Discharge Date/Time-TO BE ENTERED AT DEPARTURE: 12/06/18 21:15 Medical Decision Making <Minerva Leyva DO - Last Filed: 12/07/18 17:20> 73-year-old female with a history of diabetes, hypertension, hyperlipidemia, diverticulosis, small bowel obstruction, bowel resection and 5 days status post right total knee replacement who presents with vomiting, constipation and diffuse abdominal pain and distention for the past 2 days. Sent [facility] for concern for small bowel obstruction. Blood pressure mildly hypertensive, heart rate 100s. Afebrile. Patient has significant abdominal distention and diffuse tenderness. Right knee and lower leg with ecchymosis and distal pulses intact. Patient has an allergy to iodine which causes a rash. After discussion with radiology, will hold on IV and standard oral contrast. Will give barium contrast which will take approximately 2 hours. We will give patient a dose of Compazine and morphine. 1800 --labs reviewed. Normal white blood cell count. Hemoglobin improved from recent at 9.6. Lipase 9829. Previous lipase in May 5570 at time of previous small bowel obstruction. Patient has only complained of this abdominal pain and distention over the past few days so unsure if there is an element of chronic pancreatitis? or from pressure on pancreas from local small bowel distension? 1944 --CT reviewed and appears consistent with a bowel obstruction. Significant distention of stomach/proximal small bowel. Discussed with surgery on-call and will come to evaluate patient. Recommending NG tube at this time. 1949 --Case endorsed to Dr. Kumar to follow-up with surgery and formal read of CT. 1957 -- surgery here in ED to evaluate pt. Medical Records Medical records reviewed: Yes I reviewed the patient's medical records. Lab Data Lab results reviewed: Yes I reviewed the patient's lab results. Laboratory Tests Range/Units 12/06/18 12/06/18 12/06/18 17:00 17:00 20:17 WBC (4.4-10.8) k/cumm 8.23 RBC (4.00-5.20) m/cumm 3.11 L Hgb (12.0-15.5) g/dL 9.6 L Hct (36.0-46.0) % 31.1 L MCV (80-95) fL 100.0 H MCH (27.0-33.0) pg 30.9 MCHC (32.0-36.0) g/dL 30.9 L RDW (11.7-14.6) % 14.2 Plt Count (130-400) x1000/uL 391 D MPV (8.0-11.0) fL 8.9 Immature Gran % 0.5 Neutrophils % 76.5 Lymphocytes % 11.3 Monocytes % 10.3 Eosinophils % 1.2 Basophils % 0.2 Absolute Neutrophils (1.2-6.7) k/cumm 6.29 Absolute Lymphocytes (1.2-3.4) k/cumm 0.93 L Absolute Monocytes (0.11-0.7) k/cumm 0.85 H Absolute Eosinophils (0.0-0.7) k/cumm 0.10 Absolute Basophils (0.0-0.2) k/cumm 0.02 RBC Morphology See below Polychromasia Present Macrocytosis 1+ Sodium (136-145) mmol/L 134 L Cancelled Potassium (3.5-5.1) mmol/L 4.3 Cancelled Chloride (98-107) mmol/L 94 L Cancelled Carbon Dioxide (21.0-32.0) mmol/L 27.4 Cancelled Anion Gap (3-11) mmol/L 12.6 H Cancelled BUN (7-18) mg/dL 24 H Cancelled Creatinine (0.55-1.02) mg/dL 1.55 H Cancelled Estimated GFR/1.73 m2 (mL/min/1.73m2) 32.78 Cancelled Glucose (70-100) mg/dL 217 H Cancelled Lactate (0.6-1.4) mmol/l Calcium (8.5-10.1) mg/dL 9.9 Cancelled Magnesium (1.8-2.4) mg/dL Total Bilirubin (0.2-1.0) mg/dL 1.0 Cancelled AST (15-37) U/L 114 H Cancelled ALT (12-78) U/L 58 Cancelled Alkaline Phosphatase (46-116) U/L 171 H Cancelled Total Protein (6.4-8.2) g/dL 7.5 Cancelled Albumin (3.4-5.0) g/dL 3.0 L Cancelled Amylase (25-115) U/L Lipase (73-393) U/L 9829 H Patient ABO/Rh Antibody Screen Crossmatch Range/Units 12/07/18 12/07/18 12/07/18 06:30 06:30 06:30 WBC (4.4-10.8) k/cumm 5.51 D RBC (4.00-5.20) m/cumm 2.74 L Hgb (12.0-15.5) g/dL 8.4 L Hct (36.0-46.0) % 27.4 L MCV (80-95) fL 100.0 H MCH (27.0-33.0) pg 30.7 MCHC (32.0-36.0) g/dL 30.7 L RDW (11.7-14.6) % 14.3 Plt Count (130-400) x1000/uL 350 MPV (8.0-11.0) fL 8.6 Immature Gran % 0.2 Neutrophils % 57.4 Lymphocytes % 27.8 Monocytes % 11.8 Eosinophils % 2.4 Basophils % 0.4 Absolute Neutrophils (1.2-6.7) k/cumm 3.16 Absolute Lymphocytes (1.2-3.4) k/cumm 1.53 Absolute Monocytes (0.11-0.7) k/cumm 0.65 Absolute Eosinophils (0.0-0.7) k/cumm 0.13 Absolute Basophils (0.0-0.2) k/cumm 0.02 RBC Morphology Polychromasia Macrocytosis Sodium (136-145) mmol/L 136 Potassium (3.5-5.1) mmol/L 3.8 Chloride (98-107) mmol/L 99 Carbon Dioxide (21.0-32.0) mmol/L 27.4 Anion Gap (3-11) mmol/L 9.6 BUN (7-18) mg/dL 24 H Creatinine (0.55-1.02) mg/dL 1.39 H Estimated GFR/1.73 m2 (mL/min/1.73m2) 37.17 Glucose (70-100) mg/dL 138 H D Lactate (0.6-1.4) mmol/l Calcium (8.5-10.1) mg/dL 8.4 L Magnesium (1.8-2.4) mg/dL 2.2 Total Bilirubin (0.2-1.0) mg/dL 0.5 AST (15-37) U/L 52 H ALT (12-78) U/L 55 Alkaline Phosphatase (46-116) U/L 157 H Total Protein (6.4-8.2) g/dL 6.3 L Albumin (3.4-5.0) g/dL 2.5 L Amylase (25-115) U/L 95 Lipase (73-393) U/L 847 H Patient ABO/Rh Antibody Screen Crossmatch Range/Units 12/07/18 12/07/18 06:30 10:20 WBC (4.4-10.8) k/cumm RBC (4.00-5.20) m/cumm Hgb (12.0-15.5) g/dL Hct (36.0-46.0) % MCV (80-95) fL MCH (27.0-33.0) pg MCHC (32.0-36.0) g/dL RDW (11.7-14.6) % Plt Count (130-400) x1000/uL MPV (8.0-11.0) fL Immature Gran % Neutrophils % Lymphocytes % Monocytes % Eosinophils % Basophils % Absolute Neutrophils (1.2-6.7) k/cumm Absolute Lymphocytes (1.2-3.4) k/cumm Absolute Monocytes (0.11-0.7) k/cumm Absolute Eosinophils (0.0-0.7) k/cumm Absolute Basophils (0.0-0.2) k/cumm RBC Morphology Polychromasia Macrocytosis Sodium (136-145) mmol/L Potassium (3.5-5.1) mmol/L Chloride (98-107) mmol/L Carbon Dioxide (21.0-32.0) mmol/L Anion Gap (3-11) mmol/L BUN (7-18) mg/dL Creatinine (0.55-1.02) mg/dL Estimated GFR/1.73 m2 (mL/min/1.73m2) Glucose (70-100) mg/dL Lactate (0.6-1.4) mmol/l 0.8 Calcium (8.5-10.1) mg/dL Magnesium (1.8-2.4) mg/dL Total Bilirubin (0.2-1.0) mg/dL AST (15-37) U/L ALT (12-78) U/L Alkaline Phosphatase (46-116) U/L Total Protein (6.4-8.2) g/dL Albumin (3.4-5.0) g/dL Amylase (25-115) U/L Lipase (73-393) U/L Patient ABO/Rh O Positive Antibody Screen Negative Crossmatch See Detail <Huang Kumar MD - Last Filed: 12/06/18 22:01> pt remained stable and Dr. Almeida from general surgery evaluated pt and is admitting for tx of her sbo HPI <Minerva Leyva DO - Last Filed: 12/07/18 17:20> General Mode of arrival: EMS . Date/Time Provider Initiated Documentation: 12/06/18 17:18 . Limitations to Documentation: no limitations . Information obtained by: patient . HPI Narrative: Patient is a 73-year-old female with a history of hypertension, diverticulitis, hyperlipidemia, diabetes, multiple sclerosis, hysterectomy, bowel resection secondary to small bowel obstruction and 5 days status post a right total knee replacement who presents with vomiting, constipation and abdominal pain and distention for the past few days. Patient [facility] She states she vomited once today. She states her last bowel movement was 3 days ago. She has been taking Vicodin 1 tab every 6 hours as needed for right knee pain. She denies any known fever. She states her abdominal pain is diffuse. Related Data Home Medications Medication Instructions Recorded Confirmed estradiol [Vagifem] 10 mcg VG as directed #30 tab 04/25/16 12/06/18 calcium carbonate 600 mg (1,500 1 tab PO BID #60 tab-cap 06/20/18 12/06/18 mg)-vitamin D3 400 unit tablet dqqbrpmaxspv-aakwgtss-anjexc tablet 1 tab PO DAILY #90 tab-cap 07/26/18 12/06/18 meloxicam 7.5 mg tablet 15 mg PO DAILY tab-cap 08/25/18 12/06/18 mirtazapine 7.5 mg tablet 7.5 mg PO HS #30 tab 08/25/18 12/06/18 acetaminophen ER 650 mg 1,300 mg PO BID tab 09/01/18 12/06/18 tablet,extended release ferrous sulfate 325 mg (65 mg 325 mg PO DAILY #90 tab-cap 09/01/18 12/06/18 iron) tablet gabapentin 300 mg capsule 300 mg PO TID #270 tab-cap 09/01/18 12/06/18 metformin ER 500 mg 24 hr See Rx Instructions PO .COMPLEX 09/01/18 12/06/18 tablet,extended release omeprazole 20 mg capsule,delayed 20 mg PO BID #180 tab-cap 09/01/18 12/06/18 release alendronate 70 mg tablet 70 mg PO weekly #12 tab 09/22/18 12/06/18 amitriptyline 100 mg tablet 100 mg PO HS #90 tab-cap 09/22/18 12/06/18 hydroxyzine HCl 25 mg tablet 25 - 50 mg PO DIRECTED PRN #90 11/07/18 12/06/18 tab cholecalciferol (vitamin D3) 1,000 unit PO BID 11/21/18 12/06/18 docusate sodium [Colace] 100 mg PO DAILY 11/21/18 12/06/18 simvastatin 80 mg PO HS 11/21/18 12/06/18 magnesium oxide 400 mg (241.3 mg 400 mg PO TID #180 tab-cap 11/24/18 12/06/18 magnesium) tablet potassium chloride ER 20 mEq 20 meq PO . AFTERNOON #90 tab 11/24/18 12/06/18 tablet,extended release fluconazole 150 mg tablet 150 mg PO ONCE PRN #6 tab-cap 11/26/18 12/06/18 hydrocodone-acetaminophen 1 tab PO Q6H PRN #20 tab 12/03/18 12/06/18 ibuprofen [IBU-200] 600 mg PO TID #90 tab 12/03/18 12/06/18 hydrocodone-acetaminophen [[place]] 1 tab PO Q6H PRN #7 tab 12/04/18 12/06/18 aspirin [Aspir-81] 81 mg PO DAILY 12/06/18 12/06/18 magnesium hydroxide [Milk of 30 ml PO HS PRN 12/06/18 12/06/18 Magnesia] polyethylene glycol 3350 [Miralax] 17 g PO DAILY PRN 12/06/18 12/06/18 Previous Rx's Medication Instructions Recorded calcium carbonate 600 mg (1,500 1 tab PO BID #60 tab-cap 06/20/18 mg)-vitamin D3 400 unit tablet viifoalorrzl-qxsucmim-juonjk tablet 1 tab PO DAILY #90 tab-cap 07/26/18 mirtazapine 7.5 mg tablet 7.5 mg PO HS #30 tab 08/25/18 ferrous sulfate 325 mg (65 mg 325 mg PO DAILY #90 tab-cap 09/01/18 iron) tablet gabapentin 300 mg capsule 300 mg PO TID #270 tab-cap 09/01/18 omeprazole 20 mg capsule,delayed 20 mg PO BID #180 tab-cap 09/01/18 release alendronate 70 mg tablet 70 mg PO weekly #12 tab 09/22/18 amitriptyline 100 mg tablet 100 mg PO HS #90 tab-cap 09/22/18 hydroxyzine HCl 25 mg tablet 25 - 50 mg PO DIRECTED PRN #90 11/07/18 tab magnesium oxide 400 mg (241.3 mg 400 mg PO TID #180 tab-cap 11/24/18 magnesium) tablet potassium chloride ER 20 mEq 20 meq PO . AFTERNOON #90 tab 11/24/18 tablet,extended release fluconazole 150 mg tablet 150 mg PO ONCE PRN #6 tab-cap 11/26/18 hydrocodone-acetaminophen 1 tab PO Q6H PRN #20 tab 12/03/18 ibuprofen [IBU-200] 600 mg PO TID #90 tab 12/03/18 hydrocodone-acetaminophen [[place]] 1 tab PO Q6H PRN #7 tab 12/04/18 Allergies Allergy/AdvReac Type Severity Reaction Status Date / Time Penicillins Allergy Intermediate Skin Rash Unverified 12/06/18 16:54 miconazole Allergy Skin Rash Unverified 12/06/18 16:54 povidone-iodine Allergy Skin Rash Unverified 12/06/18 16:54 Sulfa (Sulfonamide Allergy Skin Rash Unverified 12/06/18 16:54 Antibiotics) General Stated Complaint: Abd Prob FRANCIS: 3 Review of Systems <Minerva Leyva DO - Last Filed: 12/07/18 17:20> Review of Systems All systems reviewed & are unremarkable except as noted in HPI and below Constitutional Reports as per HPI, Denies chills and Denies fever(s) Eyes Denies blurry vision ENT Denies dizziness, Denies sore throat and Denies throat swelling Cardiovascular Denies chest pain and Denies dyspnea Respiratory Denies cough and Denies dyspnea Gastrointestinal Reports abdominal pain, Reports constipation, Denies diarrhea and Reports vomiting Genitourinary Denies hematuria and Denies dysuria Musculoskeletal Denies back pain and Denies numbness Integumentary/Breasts Denies lesions and Denies rash Neurologic Denies dizziness, Denies focal weakness and Denies numbness Allergic/Immunologic Denies throat swelling PFSH <Minerva Leyva DO - Last Filed: 12/07/18 17:20> Medical History Impacted stool in intestine (Acute) Hx of hyperlipidemia (Acute) Diabetes (Chronic) Diverticulitis (Chronic) HTN (hypertension) (Chronic) Multiple sclerosis (Chronic) Surgical History Status post total knee replacement, right (Acute) History of repair of hiatal hernia (Acute) History of bowel resection (Acute) H/O hemorrhoidectomy (Chronic) History of cataract surgery (Chronic) Hx of arthroscopy of right knee (Chronic) Hx of hysterectomy (Chronic) Tenosynovitis, de Quervain (Resolved) Family History Mother Diabetes Stroke Father Cancer Heart disease Brother No problems noted. Social History Smoking/Tobacco Use Status: Former Tobacco Use Quit Date: 08/12/16 Alcohol Intake: never Drug use: Never Substance use type: does not use Caregiver/Support person: Yes (has termite control technician home caregiver faraz [id number]) Details: lives in [facility] Household members: none Housing: apartment Pets and animals: Yes Pets and animals: cat(s) Sexually active: No Do you think of yourself as: straight/heterosexual Current gender identity: female Frequency: does not exercise Marilee/Gnosticist: Catholic Special marilee needs: No Do you feel safe in your relationship?: Yes Additional Social history: in a facility Exam <DO Edda De La Rosa Last Filed: 12/07/18 17:20> Const General: cooperative and no acute distress HENMT Head: normal to inspection Face and sinus: normal facial exam Eyes General: appearance normal, both eyes and all related structures EOM: EOM intact bilaterally Neck Neck: normal visual inspection and No submandibular swelling Lymphatic: no lymphadenopathy noted Chest Chest: normal inspection of the chest and no tenderness Resp Effort & Inspection: normal respiratory effort and able to speak in complete sentences Auscultation: clear to auscultation bilaterally Cardio Rate: regular rate Rhythm: regular rhythm GI Inspection: distended (significant) Palpation: soft, not firm, not rigid and tender (diffuse) Auscultation: hyperactive bowel sounds Skin General skin exam: no rashes or lesions noted Neuro General: alert, awake and oriented x3 Cognition: normal cognition Speech: speech normal Motor: muscle tone normal throughout Sensory Exam: no sensory deficits noted Extrem Other: bandage to R anterior knee s/p TKR, ecchymoses to R lower leg Psych Appearance: grossly normal Mental Status: mental status grossly normal Speech and Movement: speech and movement normal Affect: normal affect Course <DO Edda De La Rosa Last Filed: 12/07/18 17:20> Vital Signs Temperature 97.7 F 12/06/18 16:48 Pulse 100 H 12/06/18 16:48 Respiratory Rate 19 12/06/18 16:48 Blood Pressure 151/66 H 12/06/18 16:48 Pulse Oximetry 93 L 12/06/18 16:48 Temperature 97.7 F 12/06/18 16:48 Temperature Source Temporal Artery Scan 12/06/18 16:48 Pulse 100 H 12/06/18 16:48 Respiratory Rate 19 12/06/18 16:48 Respiratory Effort 12/06/18 16:48 Blood Pressure 151/66 H 12/06/18 16:48 Blood Pressure Position Sitting 12/06/18 16:48 Pulse Oximetry 93 L 12/06/18 16:48 Oxygen Delivery Method Room Air 12/06/18 16:48 Oxygen Flow Rate 0 12/06/18 16:48 Pain Level 10 12/06/18 16:48 Sign Out <DO Edda De La Rosa Last Filed: 12/07/18 17:20> Sign Out Data: Sign Out Comment: follow up on formal CT results and with surgery Dr. Almeida regarding plan for likely admission for bowel obstruction. Last updated by Minerva Leyva DO at 12/06/18 19:53
[2018-12-06] MEDS: Prochlorperazine 10 MG/2 ML VIAL IVP (17:12)
[2018-12-06] MEDS: Normal Saline 1,000 ML 125 ML IV (17:13)
[2018-12-06 17:15] LABS: Abs Immature Grans 0.04 k/cumm (0.0-0.09); Absolute Basophil Count 0.02 k/cumm (0.0-0.2); Absolute Lymphocyte Count 0.93 k/cumm (1.2-3.4); Absolute Monocyte Count 0.85 k/cumm (0.11-0.7); Absolute Neutrophil Count 6.29 k/cumm (1.2-6.7); Basophils % 0.2; Eosinophils % 1.2; HCT 31.1 % (36.0-46.0); HGB 9.6 g/dL (12.0-15.5); Immature Grans % 0.5; Lymphocytes % 11.3; Mean Corp. HGB Concentration 30.9 g/dL (32.0-36.0); Mean Corpuscular Hemoglobin 30.9 pg (27.0-33.0); Mean Platelet Volume 8.9 fL (8.0-11.0); Monocytes % 10.3; Neutrophils % 76.5; Platelet Count 391 x1000/uL (130-400); RBC 3.11 m/cumm (4.00-5.20); RBC Distribution Width 14.2 % (11.7-14.6); White Blood Cell Count 8.23 k/cumm (4.4-10.8)
[2018-12-06] MEDS: Normal Saline Flush 10 ML SYR IVP (17:22)
[2018-12-06 17:28] LABS: ALT 58 U/L (12-78); AST 114 U/L (15-37); Alkaline Phosphatase 171 U/L (46-116); Anion Gap 12.6 mmol/L (3-11); BUN 24 mg/dL (7-18); CO2 27.4 mmol/L (21.0-32.0); CREATININE 1.55 mg/dL (0.55-1.02); Chloride 94 mmol/L (98-107); Estimated GFR 32.78 (mL/min/1.73m2); Glucose 217 mg/dL (70-100); Potassium 4.3 mmol/L (3.5-5.1); Sodium 134 mmol/L (136-145); Total Protein 7.5 g/dL (6.4-8.2)
[2018-12-06 17:29] LABS: Macrocytosis 1+; Polychromasia Present
[2018-12-06 17:35] LABS: Calcium 9.9 mg/dL (8.5-10.1)
[2018-12-06 17:39] LABS: Lipase 9829 U/L (73-393)
--- NOTE | 2018-12-06 19:55 | DI.RAD_ITS ---
SYMPTOM/DIAGNOSIS: NG TUBE PLACEMENT PORTABLE AP CHEST: Comparison is made with 06/06/15. Heart size is within normal limits given the projection. Pulmonary vasculature is unremarkable. No focal infiltrates, effusions or pneumothoraces are seen. The tip of the nasogastric tube is seen in the left upper quadrant. This is in the region of the stomach. IMPRESSION: 1. Enteric tube seen with the tip in the region of the stomach. 2. No acute pulmonary process.
--- NOTE | 2018-12-06 20:11 | DI.VRAD_ITS ---
EXAM: CT Abdomen and Pelvis Without Contrast EXAM DATE/TIME: 12/06/2018 5:05 PM CLINICAL HISTORY: 73 years old, female; Abdominal pain; Generalized; Patient HX: Diffuse abd pain, vomiting; Additional info: HX of bowel resection; Hiatal hernia repair; R/O sbo TECHNIQUE: Imaging protocol: Axial computed tomography images of the abdomen and pelvis without contrast. Coronal and sagittal reformatted images were created and reviewed. COMPARISON: CT ABDOMEN PELVIS WO 06/07/2018 4:[address] of the abdomen and pelvis dated 01/19/2012. FINDINGS: Lungs: Punctate calcified granulomas noted within the posterior right costophrenic angle as well as within the left lung base. Linear opacities in the lung bases consistent with mild basilar atalectasis. Heart: There is fatty infiltration of the right atrial wall, incompletely visualized. Also noted is trace pericardial fluid. Mediastinum: Postsurgical changes at the gastroesophageal junction compatible with prior Aníbal fundoplication. Enteric contrast is noted within a mildly patulous distal esophagus. ABDOMEN: Liver: There is diffuse hypoattenuation in relation to the enhanced hepatic vessels with scattered focal fatty sparing consistent with fatty infiltration. No enhancing hepatic mass. Gallbladder and bile ducts: Unremarkable. No calcified stones. No ductal dilation. Pancreas: Unremarkable. No ductal dilation. Spleen: Unremarkable. No splenomegaly. Adrenals: There is bilateral nodular thickening of the adrenal glands, not significantly changed compared to study dated 01/19/2012 consistent with benign process. Kidneys and ureters: There is increased attenuation of the medullary pyramids within the right kidney, favor medullary calcifications. No hydronephrosis. Ureters are normal in course and caliber. Stomach and bowel: Moderate diverticulosis is present in the distal colon. No focal mural thickening within the colon to suggest acute diverticulitis. There is mild to moderate stool burden throughout the colon. There is moderately severe dilation of the small bowel with scattered air-fluid levels, measuring up to 7.8 cm in diameter. There is transition point within the right hemiabdomen, in the region of anastomotic chain suture. There is mild inflammatory stranding of the central mesenteric fat, likely secondary to small bowel obstruction. Appendix: Not definitively visualized, no secondary findings of acute appendicitis. PELVIS: Bladder: Bladder is incompletely distended limiting evaluation. There is trace focus of air within the anti-dependent bladder, correlate for recent catheterization. Reproductive: Uterus is not seen, correlate for surgical removal. ABDOMEN and PELVIS: Intraperitoneal space: No free air. No significant fluid collection. Bones/joints: There is mild osteopenia. No acute fracture or dislocation. Circumscribed sclerotic focus within the sacrum likely represents benign etiology such as an enostosis in the absence of known malignancy, correlate clinically to exclude history of malignancy. Soft tissues: Linear hyperattenuation within the ventral midline subcutaneous soft tissues are favored to represent postsurgical change. Vasculature: There are moderate scattered atherosclerotic calcifications of the abdominal aorta and its major branches, no abdominal aortic aneurysm. Lymph nodes: No pathologically enlarged lymph nodes. IMPRESSION: 1. Moderately severe dilation of the proximal small bowel, measuring up to 7.8 cm in diameter, with scattered air-fluid levels and likely transition point within the right hemiabdomen in the region of anastomotic chain suture. This is consistent with mechanical small bowel obstruction. Recommend surgical consultation. 2. Fatty infiltration of the liver. Correlate with LFTs. 3. Nodular thickening of the bilateral adrenal glands, similar dating back to it least 01/19/2012 consistent with benign process. 4. Postsurgical changes of prior Aníbal fundoplication with ingested contrast within a mildly dilated distal esophagus. Correlate for symptoms of gastroesophageal reflux versus recent regurgitation. 5. Moderate diverticulosis of the distal colon. No findings to suggest acute diverticulitis. 6. Trace focus of air within the anti-dependent bladder. Correlate for recent catheterization. Dictated and Authenticated by: Joss Rizzo MD. Ordering:JEREMY Palma MD
--- NOTE | 2018-12-06 20:12 | DI.VRAD_ITS ---
EXAM: XR Chest, 1 View EXAM DATE/TIME: 12/06/2018 7:58 PM CLINICAL HISTORY: 73 years old, female; Device placement; Ng tube; Prior surgery; Additional info: HX of bowel resection; Hiatal hernia repair; R/O sbo TECHNIQUE: Imaging protocol: XR of the chest, 1 view. COMPARISON: CR RIBS BILATERAL TO INCLUDE CXR 06/06/2015 11:04 AM FINDINGS: Tubes, catheters and devices: Enteric tube is noted with distal tip projecting over the left upper quadrant, in the region of the stomach. Lungs: Lungs are adequately inflated and symmetric. No focal consolidation or pulmonary edema. Pleural space: No pleural effusion. No pneumothorax. Heart/Mediastinum: Cardiac silhouette within normal limits for size. There are atherosclerotic calcifications of the aortic arch. Upper abdomen: Mild gaseous dilation of the imaged bowel in the upper abdomen. Bones/joints: Degenerative changes of the right acromioclavicular joint. No acute osseous finding. Soft tissues: No focal soft tissue abnormailty. IMPRESSION: 1. Enteric tube with distal tip in the region of the stomach, distal tip and side-port below the gastroesophageal junction. 2. No acute cardiopulmonary finding. Dictated and Authenticated by: Joss Rizzo MD. Ordering:JEREMY Palma MD
--- NOTE | 2018-12-06 20:31 | NUR.NOTE ---
per request of Dr. Almeida, assisted with order for sliding scale insulin. Nursing Note:
--- NOTE | 2018-12-06 20:46 | HPE_ITS ---
Date of service: 12/06/18 Time of Service: 20:42 Assessment and Plan (1) Dysphagia: Current visit: No Status: Active s/p diapragmatic repair (2) Anemia: Current visit: No Status: Active IV Iron replcament in am (3) Status post total knee replacement, right: Current visit: Yes Status: Acute supportive care (4) SBO (small bowel obstruction): Current visit: Yes Status: Acute NGT enema GI prophalaxis (5) Impacted stool in intestine: Current visit: Yes Status: Acute High risk for intestinal perforation and need for colostomy. Pt was given po contrast for CT. When NGT was placed- all the Oral contrast was still in the stomach and came out through the NGT while she was in the ED Will try enemas and golytely. supportive care. May have hosp consult in am for care of DM (6) Multiple sclerosis: Current visit: Yes Status: Chronic as above (7) Memory impairment: Current visit: Yes Status: Acute pt will need to return to rehab after this admission consider cognitive evaluation (8) Type 2 diabetes mellitus with complication, without long-term current use of insulin: Current visit: Yes Status: Acute cover w/ insulin History of Present Illness Consults Consult date: 12/06/18 Requesting physician: Minerva Leyva Narrative: Hx from Chart: PAST SURGICAL HISTORY: 1) Hysterectomy 2) Hiatal hernia 3) Trigger finger release 4) Bowel resection- ? if this was the sigmoid resection given her hx of diverticular dx. no notes in chart. pt does not remember. -questionable hx of prior Fabian reaction to anesthesia is unknown. PAST MEDICAL HISTORY: Multiple sclerosis - she sees Dr. Citlalli Harper for her neurological issues Headaches Anxiety and depression Hyperlipidemia Kidney stones Former smoker Gastroesophageal reflux disorder - takes Nexium - pt had a total knee done on 12/01. pt came into ED on 12/04: Patient reports that her pain has greatly increased and she notes swelling in the right knee. She does have a thigh-high ELIZABETH hose on the right knee as well as the postoperative dressings in place. Patient is admittedly forgetful and associates this with her MS. She did not take any of her pain medications as prescribed. Reports that her pain is been limiting her with ambulation. -She was d/c'ed from hosp on 4/24. came into the ED on 12/04, and pt was transferred to rehab for continued care. From ER 12/06: 73-year-old female with a history of diabetes, hypertension, hyperlipidemia, diverticulosis, small bowel obstruction, bowel resection and 5 days status post right total knee replacement who presents with vomiting, constipation and diffuse abdominal pain and distention for the past 2 days. Sent from health and rehab for concern for small bowel obstruction. She did not have a BM while she was in the hosp. I have no records from rehab when/if she has a BM. Pt doesn't know when the last time was she moved her bowels. She states she used to have problems w/ diarrhea. Pt doesn't remember what bowel sx she had. Pt bowel is grossly distended. She has an extremely high probability of colon perforation- this would require colostomy. THis is also puts her at extremely high risk of joint infection, cardiopulmonary event, prolonged mechanical ventilation, poor outcome. Review of Systems Constitutional Comments: Pt is an extremely poor historian, and cannot give reliable Hx. She says she doens' know/libertad't remember when I ask any question? PFSH Medical History Impacted stool in intestine (Acute) Hx of hyperlipidemia (Acute) Diabetes (Chronic) Diverticulitis (Chronic) HTN (hypertension) (Chronic) Multiple sclerosis (Chronic) Surgical History Status post total knee replacement, right (Acute) History of repair of hiatal hernia (Acute) History of bowel resection (Acute) H/O hemorrhoidectomy (Chronic) History of cataract surgery (Chronic) Hx of arthroscopy of right knee (Chronic) Hx of hysterectomy (Chronic) Tenosynovitis, de Quervain (Resolved) Family History Mother Diabetes Stroke Father Cancer Heart disease Brother No problems noted. Social History Smoking/Tobacco Use Status: Former Tobacco Use Quit Date: 08/12/16 Alcohol Intake: never Drug use: Never Substance use type: does not use Caregiver/Support person: Yes (has [facility] home caregiver faraz [id number]) Details: [facility] Household members: none Housing: apartment Pets and animals: Yes Pets and animals: cat(s) Sexually active: No Do you think of yourself as: straight/heterosexual Current gender identity: female Frequency: does not exercise Marilee/Jehovah'S Witness: [employer] Special marilee needs: No Do you feel safe in your relationship?: Yes Additional Social history: in a facility Meds Home Medications Medication Instructions Recorded Confirmed Type estradiol [Vagifem] 10 mcg VG as directed #30 tab 04/25/16 12/06/18 History calcium carbonate 600 mg (1,500 1 tab PO BID #60 tab-cap 06/20/18 12/06/18 Rx mg)-vitamin D3 400 unit tablet iknstimibyss-twtuihuw-vgdvat tablet 1 tab PO DAILY #90 tab-cap 07/26/18 12/06/18 Rx meloxicam 7.5 mg tablet 15 mg PO DAILY tab-cap 08/25/18 12/06/18 History mirtazapine 7.5 mg tablet 7.5 mg PO HS #30 tab 08/25/18 12/06/18 Rx acetaminophen ER 650 mg 1,300 mg PO BID tab 09/01/18 12/06/18 History tablet,extended release ferrous sulfate 325 mg (65 mg 325 mg PO DAILY #90 tab-cap 09/01/18 12/06/18 Rx iron) tablet gabapentin 300 mg capsule 300 mg PO TID #270 tab-cap 09/01/18 12/06/18 Rx metformin ER 500 mg 24 hr See Rx Instructions PO .COMPLEX 09/01/18 12/06/18 History tablet,extended release omeprazole 20 mg capsule,delayed 20 mg PO BID #180 tab-cap 09/01/18 12/06/18 Rx release alendronate 70 mg tablet 70 mg PO weekly #12 tab 09/22/18 12/06/18 Rx amitriptyline 100 mg tablet 100 mg PO HS #90 tab-cap 09/22/18 12/06/18 Rx hydroxyzine HCl 25 mg tablet 25 - 50 mg PO DIRECTED PRN #90 11/07/18 12/06/18 Rx tab cholecalciferol (vitamin D3) 1,000 unit PO BID 11/21/18 12/06/18 History docusate sodium [Colace] 100 mg PO DAILY 11/21/18 12/06/18 History simvastatin 80 mg PO HS 11/21/18 12/06/18 History magnesium oxide 400 mg (241.3 mg 400 mg PO TID #180 tab-cap 11/24/18 12/06/18 Rx magnesium) tablet potassium chloride ER 20 mEq 20 meq PO . AFTERNOON #90 tab 11/24/18 12/06/18 Rx tablet,extended release fluconazole 150 mg tablet 150 mg PO ONCE PRN #6 tab-cap 11/26/18 12/06/18 Rx hydrocodone-acetaminophen 1 tab PO Q6H PRN #20 tab 12/03/18 12/06/18 Rx ibuprofen [IBU-200] 600 mg PO TID #90 tab 12/03/18 12/06/18 Rx hydrocodone-acetaminophen [[place]] 1 tab PO Q6H PRN #7 tab 12/04/18 12/06/18 Rx aspirin [Aspir-81] 81 mg PO DAILY 12/06/18 12/06/18 History magnesium hydroxide [Milk of 30 ml PO HS PRN 12/06/18 12/06/18 History Magnesia] polyethylene glycol 3350 [Miralax] 17 g PO DAILY PRN 12/06/18 12/06/18 History Allergies Allergy/AdvReac Type Severity Reaction Status Date / Time Penicillins Allergy Intermediate Skin Rash Unverified 12/06/18 16:54 miconazole Allergy Skin Rash Unverified 12/06/18 16:54 povidone-iodine Allergy Skin Rash Unverified 12/06/18 16:54 Sulfa (Sulfonamide Allergy Skin Rash Unverified 12/06/18 16:54 Antibiotics) Exam Const General: cooperative, healthy appearing, comfortable, no acute distress, well developed and well groomed Nutritional Appearance: well nourished and overweight Orientation: alert, awake and oriented to person Other: pt denies c/o abdom pain and distention. she doens't know when she had a BM last. She asks me continuously when she is going to surgery. [facility] Head: normal to inspection, normocephalic and atraumatic Ears: hearing grossly normal bilaterally and external ears normal General nose exam: external nose normal Face and sinus: normal facial exam and sinuses nontender Mouth: oral mucosae normal, lip normal, tongue normal and moist mucous membranes Teeth and gingiva: dentition normal Eyes General: appearance normal, both eyes and all related structures Conjunctivae: conjunctivae normal Sclera: sclerae normal Pupils: PERRL Neck Neck: normal visual inspection and full ROM Chest Chest: normal inspection of the chest Resp Effort & Inspection: normal respiratory effort, able to speak in complete sentences, no cough, no nasal flaring, not tachypneic and no use of accessory muscles Auscultation: clear to auscultation bilaterally, no rales, no rhonchi and no wheezes Cardio Jugular venous pressure: no JVD Rate: regular rate Rhythm: regular rhythm GI Inspection: normal to inspection, no edema and distended (massive distention. no sx scars notoed ) Palpation: tender Auscultation: high-pitched sounds Other: diffusely tender. Mod pain. no hernias noted. Skin General skin exam: no rashes or lesions noted Neuro General: alert, moves all extremities, no focal motor deficits and CN's II-XI intact bilaterally Speech: speech normal Extrem Other: LLE- no pain or swelling R knee- echymosis and swelling painful. incision c/d/i. no signs of infection Psych Appearance: grossly normal and well kempt Mental Status: mental status grossly normal Speech and Movement: speech and movement normal Affect: normal affect Results Labs : 12/06/18 17:00 12/06/18 17:00 Laboratory Results - last 24 hr 12/06/18 12/06/18 17:00 17:00 WBC 8.23 RBC 3.11 L Hgb 9.6 L Hct 31.1 L MCV 100.0 H MCH 30.9 MCHC 30.9 L RDW 14.2 Plt Count 391 D MPV 8.9 Immature Gran % 0.5 Neutrophils % 76.5 Lymphocytes % 11.3 Monocytes % 10.3 Eosinophils % 1.2 Basophils % 0.2 Absolute Neutrophils 6.29 Absolute Lymphocytes 0.93 L Absolute Monocytes 0.85 H Absolute Eosinophils 0.10 Absolute Basophils 0.02 RBC Morphology See below Polychromasia Present Macrocytosis 1+ Sodium 134 L Potassium 4.3 Chloride 94 L Carbon Dioxide 27.4 Anion Gap 12.6 H BUN 24 H Creatinine 1.55 H Estimated GFR/1.73 m2 32.78 Glucose 217 H Calcium 9.9 Total Bilirubin 1.0 AST 114 H ALT 58 Alkaline Phosphatase 171 H Total Protein 7.5 Albumin 3.0 L Lipase 9829 H Last Vital Signs Temp 36.5 C 12/06/18 16:48 Pulse 100 H 12/06/18 16:48 Resp 12 12/06/18 17:40 BP 151/66 H 12/06/18 16:48 Pulse Ox 98 12/06/18 17:40
[2018-12-06] MEDS: Enoxaparin 30 MG/0.3 ML SYR SC (22:44)
[2018-12-06] MEDS: Pantoprazole 40 MG VIAL IVP (22:44)
[2018-12-06] MEDS: ACETAMINOPHEN 1,000 MG/100 ML BTL 400 MG IVPB (22:44)
[2018-12-07] VITALS (14 sets, daily range): BP systolic 121–174; BP diastolic 70–79; PULSE 79–89; RESP 16–19; TEMP 36.2–36.9; O2SAT 95–98
[2018-12-07] MEDS: Insulin Aspart 300 UNITS/3 ML PEN SC ×2 (00:09→05:36)
--- NOTE | 2018-12-07 00:15 | NUR.NOTE ---
Nursing Note: Golytely administered per MD orders. NGT is currently clamped, will resume LIS at 02:11. PT experiencing no nausea at this time.
[2018-12-07] MEDS: Normal Saline 1,000 ML 125 ML IV ×3 (00:23→21:29)
--- NOTE | 2018-12-07 02:11 | NUR.NOTE ---
Nursing Note: LIS to NGT resumed.
[2018-12-07] MEDS: ACETAMINOPHEN 1,000 MG/100 ML BTL 400 MG IVPB ×3 (05:36→21:30)
[2018-12-07 06:43] LABS: Lactate-non-spesis 0.8 mmol/l (0.6-1.4)
[2018-12-07 06:44] LABS: Abs Immature Grans 0.01 k/cumm (0.0-0.09); Absolute Basophil Count 0.02 k/cumm (0.0-0.2); Absolute Eosinophil Count 0.13 k/cumm (0.0-0.7); Absolute Lymphocyte Count 1.53 k/cumm (1.2-3.4); Absolute Monocyte Count 0.65 k/cumm (0.11-0.7); Basophils % 0.4; Eosinophils % 2.4; HCT 27.4 % (36.0-46.0); HGB 8.4 g/dL (12.0-15.5); Immature Grans % 0.2; Lymphocytes % 27.8; Mean Corp. HGB Concentration 30.7 g/dL (32.0-36.0); Mean Corpuscular Hemoglobin 30.7 pg (27.0-33.0); Mean Platelet Volume 8.6 fL (8.0-11.0); Monocytes % 11.8; Neutrophils % 57.4; Platelet Count 350 x1000/uL (130-400); RBC 2.74 m/cumm (4.00-5.20); RBC Distribution Width 14.3 % (11.7-14.6); White Blood Cell Count 5.51 k/cumm (4.4-10.8)
[2018-12-07 06:53] LABS: Absolute Neutrophil Count 3.16 k/cumm (1.2-6.7)
[2018-12-07 07:01] LABS: Amylase 95 U/L (25-115); Lipase 847 U/L (73-393)
[2018-12-07 07:04] LABS: ALT 55 U/L (12-78); AST 52 U/L (15-37); Albumin 2.5 g/dL (3.4-5.0); Alkaline Phosphatase 157 U/L (46-116); Anion Gap 9.6 mmol/L (3-11); BUN 24 mg/dL (7-18); Bilirubin, Total 0.5 mg/dL (0.2-1.0); CO2 27.4 mmol/L (21.0-32.0); CREATININE 1.39 mg/dL (0.55-1.02); Chloride 99 mmol/L (98-107); Estimated GFR 37.17 (mL/min/1.73m2); Glucose 138 mg/dL (70-100); Magnesium 2.2 mg/dL (1.8-2.4); Potassium 3.8 mmol/L (3.5-5.1); Sodium 136 mmol/L (136-145); Total Protein 6.3 g/dL (6.4-8.2)
[2018-12-07 07:24] LABS: Calcium 8.4 mg/dL (8.5-10.1)
--- NOTE | 2018-12-07 07:48 | PHARADMIT ---
Addendum entered by Celine Veliz 12/09/18 15:12: Pharmacy Note Subjective Continues Nausea and abdominal pain, multiple loose BM's, NG tube re-inserted overnight Objective VS ok, I/O positive, no recent weight, lytes good, H/H down 9.8/31.4 Abdominal xray today: no evidence of bowel obstruction, NG tube is in place Assessment Pt refused abdominal exam by MD due to pain 4-03/21 today IV APAP and IV Morphine dc'd Toradol added for pain NS @ 125ml/hr running Pt refused Lovenox injection last night Plan Will go to [facility] when ready for rehab prior to going home Addendum entered by Celine Veliz 12/08/18 14:21: Pharmacy Note Subjective Objective VS ok, pain 6/10, no labs, FSBS 95, many soft liquid stools ~7/24h Assessment NG tube was in place but recently removed IV APAP should be changed to oral now that NG tube removed? Getting IV Morphine for pain Plan SBO resolving, pt wants to go back home ([facility]), has some assistance, lives alone although MD note states patient needs rehab Original Note: Admission Pharmacy Clinical Review SBO, Fecal impaction Code Status Full Code Current Weight Wgt-93.1 kg Renally Cleared and Narrow Therapeutic Index Meds CrCl~ 31.10 mL/min Meds-OK QTc Value / Action Taken NONE CURRENT BP Control, Fever BP- 129/77 Tmax-36.6C Electrolytes reviewed Na- 136 K+3.8 Mag-2.2 DVT Prophylaxis Lovenox 30mg Opiate Usage / Scheduled Bowel Regimen Ordered No No Plt/SCr for Heparin / Enoxaparin Plts-350 SCr-1.39 INR for Warfarin NS H/H stable, WBC/Bands H&H- 8.4/27.4 WBC- 5.51 Antibiotic appropriateness none Cultures and Sensitivities NONE Surgical ABX d/c within 24 hr NA DM control / Insulin Dosing BG- 138 Aspart Heart Failure (Check EF%) (THEODORE's, B-Block, Diuretics) none IV to PO Switch No Home Meds Reviewed Yes Home Meds Not Ordered Fosamax, Amitriptyline, ASA,Calcium-D, Vit-D, B-12,Iron, Vagifem, Diflucan, Gabapentin, [place], Atarax, Ibuprofen, MagOx, Metformin,Mobic, Vision+, Mirtazapine, KCL, Zocor, Comments Lipase840
--- NOTE | 2018-12-07 08:00 | DI.RAD_ITS ---
SYMPTOMS/DIAGNOSIS: SMALL BOWEL OBSTRUCTION FLAT AND UPRIGHT ABDOMEN: The visualized lung bases are clear. No organomegaly or pneumoperitoneum is seen. The tip of the enteric tube is seen in the left upper quadrant in the stomach. Air filled loops of small and large bowel are present. No evidence of bowel obstruction is seen. Degenerative changes are seen in the spine. Since the CT scan from 12/06/18, there has been significant decrease in size of the stomach and small bowel. IMPRESSION: Overall improved appearance of the bowel compared to the CT scan from 12/06/18.
--- NOTE | 2018-12-07 08:52 | DI.VRAD_ITS ---
EXAM: XR Abdomen, 2 Views EXAM DATE/TIME: 12/07/2018 8:31 AM CLINICAL HISTORY: 73 years old, female; Condition or disease; Other: Sbo TECHNIQUE: Imaging protocol: Frontal view of the abdomen/pelvis with upright view of the abdomen. COMPARISON: CR XR abdomen flat upright 11/17/2018 10:22 AM FINDINGS: Tubes, catheters and devices: NG tube extends into stomach Gastrointestinal tract: Gas-filled loops of colon noted extending to the rectum. On upright image air-fluid levels are noted in the right lower quadrant. Differential would include small bowel ileus.. Intraperitoneal space: Normal. No free air. Bones/joints: Unremarkable for age. IMPRESSION: Gas-filled loops of colon noted extending to the rectum. On upright image air-fluid levels are noted in the right lower quadrant. Differential would include small bowel ileus.. Dictated and Authenticated by: Juliocesar Oro MD. Ordering:DIVINE Benson MD
--- NOTE | 2018-12-07 10:22 | W.PM.PROGNOT ---
Date of Service Date of service: 12/07/18 Time of Service: 10:23 Assessment and Plan (1) SBO (small bowel obstruction): Current visit: Yes Status: Acute improving. -still having high outpt from NGT -resp therapy notes increasing needs for O2. cont inc spirom use cont cathartics transfuse- poor oxygenation and poss need for surgical intervention stable for Phys T. pt passed bedside cognitive eval cont supportive care (2) Impacted stool in intestine: Current visit: Yes Status: Acute as above (3) Status post total knee replacement, right: Current visit: Yes Status: Acute physical therapy (4) Anemia: Current visit: No Status: Active transfuse increasing O2 needs Subjective Interval history since last seen: pt had BM last pm. Still having high output from NGT. abdom is softer today and has good bs. Pt is doing well. no headaches. No CP or SOB. no productive cough. smith in place- cl yellow urine. R knee incision is intact. no redness. +swelling. + echymosis mini cognitive exam done at bedside- pt did well. Appears to be able to sign consents. Will plan on transfusion today cont to try to stimulate bowels from above. Pt had good results from enemas. Exam Const General: cooperative, healthy appearing, comfortable, no acute distress, well developed and well groomed Nutritional Appearance: average body habitus and well nourished Orientation: alert, awake and oriented x3 HENMT Head: normal to inspection, normocephalic and atraumatic Ears: hearing grossly normal bilaterally and external ears normal General nose exam: external nose normal Face and sinus: normal facial exam and sinuses nontender Mouth: oral mucosae normal, lip normal, tongue normal and moist mucous membranes Teeth and gingiva: dentition normal Eyes General: appearance normal, both eyes and all related structures Conjunctivae: conjunctivae normal Sclera: sclerae normal Pupils: PERRL Neck Neck: normal visual inspection and full ROM Chest Chest: normal inspection of the chest Resp Effort & Inspection: normal respiratory effort, able to speak in complete sentences, no cough, no nasal flaring, not tachypneic and no use of accessory muscles Auscultation: clear to auscultation bilaterally, no rales, no rhonchi and no wheezes Cardio Jugular venous pressure: no JVD Rate: regular rate Rhythm: regular rhythm GI Inspection: normal to inspection, no edema and non-distended Palpation: soft, no masses, nontender and No ascites Auscultation: normal bowel sounds Other: good bs today. softer less pain Skin General skin exam: no rashes or lesions noted Trauma: no lacerations or abrasions Neuro General: alert, oriented x3, oriented, gait normal, moves all extremities, no focal motor deficits and CN's II-XI intact bilaterally Cognition: normal cognition Speech: speech normal Gait: normal gait Motor: muscle tone normal throughout Extrem General: normal to inspection Other: incision R knee: mild echynosis + swollen. no redness/drainage Psych Appearance: grossly normal and well kempt Mental Status: mental status grossly normal Speech and Movement: speech and movement normal Affect: normal affect Objective Objective Clinical Data: Abnormal lab results 12/06/18 12/06/18 12/07/18 Range/Units 17:00 17:00 06:30 RBC 3.11 L (4.00-5.20) m/cumm Hgb 9.6 L (12.0-15.5) g/dL Hct 31.1 L (36.0-46.0) % MCV 100.0 H (80-95) fL MCHC 30.9 L (32.0-36.0) g/dL Absolute Lymphocytes 0.93 L (1.2-3.4) k/cumm Absolute Monocytes 0.85 H (0.11-0.7) k/cumm Sodium 134 L (136-145) mmol/L Chloride 94 L (98-107) mmol/L Anion Gap 12.6 H (3-11) mmol/L BUN 24 H (7-18) mg/dL Creatinine 1.55 H (0.55-1.02) mg/dL Glucose 217 H (70-100) mg/dL Calcium (8.5-10.1) mg/dL AST 114 H (15-37) U/L Alkaline Phosphatase 171 H (46-116) U/L Total Protein (6.4-8.2) g/dL Albumin 3.0 L (3.4-5.0) g/dL Lipase 9829 H 847 H (73-393) U/L Crossmatch 12/07/18 12/07/18 12/07/18 Range/Units 06:30 06:30 09:32 RBC 2.74 L (4.00-5.20) m/cumm Hgb 8.4 L (12.0-15.5) g/dL Hct 27.4 L (36.0-46.0) % MCV 100.0 H (80-95) fL MCHC 30.7 L (32.0-36.0) g/dL Absolute Lymphocytes (1.2-3.4) k/cumm Absolute Monocytes (0.11-0.7) k/cumm Sodium (136-145) mmol/L Chloride (98-107) mmol/L Anion Gap (3-11) mmol/L BUN 24 H (7-18) mg/dL Creatinine 1.39 H (0.55-1.02) mg/dL Glucose 138 H D (70-100) mg/dL Calcium 8.4 L (8.5-10.1) mg/dL AST 52 H (15-37) U/L Alkaline Phosphatase 157 H (46-116) U/L Total Protein 6.3 L (6.4-8.2) g/dL Albumin 2.5 L (3.4-5.0) g/dL Lipase (73-393) U/L Crossmatch See Detail Vital Signs Temperature 36.4 C L 12/07/18 07:15 Temperature Source Tympanic 12/07/18 07:15 Pulse 79 12/07/18 07:15 Pulse Rhythm Regular 12/07/18 08:47 Pulse 97 H 12/06/18 17:40 Respiratory Rate 18 12/07/18 07:15 Respiratory Effort Non-Labored 12/07/18 08:47 Respiratory Depth Normal 12/07/18 08:47 Respiratory Pattern Normal 12/07/18 08:47 Blood Pressure 121/70 12/07/18 07:15 Blood Pressure Position Sitting 12/06/18 16:48 Pulse Oximetry 97 12/07/18 07:15 Oxygen Delivery Method Nasal Cannula 12/06/18 23:41 Oxygen Flow Rate 2 12/06/18 23:41 Pain Level 0 12/07/18 07:15 Intake & Output 12/06/18 12/06/18 12/07/18 11:59 23:59 11:59 Intake Total 645.833 / 515.141 2905 / 1000 Output Total 875 / 875 1725 / 1725 Balance -229.167 / -229.167 -725 / -725 Weight 93.1 kg Intake: IV 645.833 / 841.764 6130 / 1000 Output: Gastric Drainage 500 / 500 950 / 950 Right Nare 500 / 500 950 / 950 Urine 375 / 375 275 / 275 Stool 500 / 500 Other: Urine Color Yellow Light Deisi Urine Appearance Clear Clear Stool Characteristics Formed Formed Liquid Laboratory Results WBC 5.51 k/cumm (4.4-10.8) D 12/07/18 06:30 RBC 2.74 m/cumm (4.00-5.20) L 12/07/18 06:30 Hgb 8.4 g/dL (12.0-15.5) L 12/07/18 06:30 Hct 27.4 % (36.0-46.0) L 12/07/18 06:30 MCV 100.0 fL (80-95) H 12/07/18 06:30 MCH 30.7 pg (27.0-33.0) 12/07/18 06:30 MCHC 30.7 g/dL (32.0-36.0) L 12/07/18 06:30 RDW 14.3 % (11.7-14.6) 12/07/18 06:30 Plt Count 350 x1000/uL (130-400) 12/07/18 06:30 MPV 8.6 fL (8.0-11.0) 12/07/18 06:30 Immature Gran % 0.2 12/07/18 06:30 Neutrophils % 57.4 12/07/18 06:30 Lymphocytes % 27.8 12/07/18 06:30 Monocytes % 11.8 12/07/18 06:30 Eosinophils % 2.4 12/07/18 06:30 Basophils % 0.4 12/07/18 06:30 Absolute Neutrophils 3.16 k/cumm (1.2-6.7) 12/07/18 06:30 Absolute Lymphocytes 1.53 k/cumm (1.2-3.4) 12/07/18 06:30 Absolute Monocytes 0.65 k/cumm (0.11-0.7) 12/07/18 06:30 Absolute Eosinophils 0.13 k/cumm (0.0-0.7) 12/07/18 06:30 Absolute Basophils 0.02 k/cumm (0.0-0.2) 12/07/18 06:30 RBC Morphology See below 12/06/18 17:00 Polychromasia Present 12/06/18 17:00 Macrocytosis 1+ 12/06/18 17:00 Sodium 136 mmol/L (136-145) 12/07/18 06:30 Potassium 3.8 mmol/L (3.5-5.1) 12/07/18 06:30 Chloride 99 mmol/L (98-107) 12/07/18 06:30 Carbon Dioxide 27.4 mmol/L (21.0-32.0) 12/07/18 06:30 Anion Gap 9.6 mmol/L (3-11) 12/07/18 06:30 BUN 24 mg/dL (7-18) H 12/07/18 06:30 Creatinine 1.39 mg/dL (0.55-1.02) H 12/07/18 06:30 Estimated GFR/1.73 m2 37.17 (mL/min/1.73m2) 12/07/18 06:30 Glucose 138 mg/dL (70-100) H D 12/07/18 06:30 Lactate 0.8 mmol/l (0.6-1.4) 12/07/18 06:30 Calcium 8.4 mg/dL (8.5-10.1) L 12/07/18 06:30 Magnesium 2.2 mg/dL (1.8-2.4) 12/07/18 06:30 Total Bilirubin 0.5 mg/dL (0.2-1.0) 12/07/18 06:30 AST 52 U/L (15-37) H 12/07/18 06:30 ALT 55 U/L (12-78) 12/07/18 06:30 Alkaline Phosphatase 157 U/L (46-116) H 12/07/18 06:30 Total Protein 6.3 g/dL (6.4-8.2) L 12/07/18 06:30 Albumin 2.5 g/dL (3.4-5.0) L 12/07/18 06:30 Amylase 95 U/L (25-115) 12/07/18 06:30 Lipase 847 U/L (73-393) H 12/07/18 06:30 Crossmatch See Detail 12/07/18 09:32
[2018-12-07] MEDS: Magnesium Citrate 300 ML BTL PO (10:59)
[2018-12-07] MEDS: IRON SUCROSE COMPLEX 200 MG in Normal Saline 100 ML 150 MG IVPB (11:07)
[2018-12-07] MEDS: diphenhydrAMINE 25 MG CAP PO (11:32)
--- NOTE | 2018-12-07 11:40 | PDOC.CMIN ---
- If Service Date Differs Date of service: 12/07/18 Time of Service: 11:40 Care Management Initial Assess REASON FOR HOSPITALIZATION:: SBO, fecal impaction status post RTKA PAST MEDICAL HISTORY/PAST SURGICAL HISTORY:: Dysphasia, anxiety, anemia, low back pain, headaches including migraines, hyperlipidemia, memory impairment, vitamin B 12 deficiency, vitamin D deficiency, cervical spondylosis, osteoarthritis, multiple sclerosis, hyperlipidemia, hypertensive disorder, chronic fatigue, ataxia, type 2 diabetes, prolapsed internal hemorrhoids. Surgical history: Hemorrhoidectomy, bowel resection, cataract surgery, hiatal hernia repair, hysterectomy, total right knee replacement. PREVIOUS FUNCTIONAL STATUS/SOCIAL/FAMILY SUPPORTS:: Lorie resides alone in a handicap accessible apartment at [facility] in [place], [place]. She has home health nurse services four hours a day through [facility]. She reports no current support people in her life, but appears content with her apartment, setting and services. She uses a motorized W/C at baseline when leaving her apartment and utilizes a FWW in her apartment. She reports she is donating her brain to research because of her wish to help find a cure for MS. CURRENT FUNCTIONAL STATUS:: Lorie is lying in bed when CM into visit she is engaged during assessment. Lorie is alert and oriented, she is able to identify date time place accurately. Lorie is well-known to this case aide related to recent admission, ED encounter, and now inpatient. Ute makes good eye contact she has a NG tube in place. She is going to recieve PRC transfusion today. She does state she is hungry and reports she had a bowel movement this morning. ADVANCE DIRECTIVES:: On file at [facility] Has patient been provided with information about the portal?: Yes Did the patient sign up for the portal?: No CODE STATUS:: Full Code CODE STATUS COMMENT:: COLST on file listed as DNR/DNI INSURANCE COVERAGE / FINANCIAL ISSUES:: Medicare, Medicaid CURRENT HOME/COMMUNITY SERVICES/EQUIPMENT:: Choice for care Highest needs, electric wheelchair, FWW, SASH, [facility] handicap accessible apartment and [facility] for transportation. PRIMARY CARE PHYSICIAN:: Gris Bates MD POTENTIAL DISCHARGE NEEDS:: [facility] prior to returning home to the [facility]. PATIENT/FAMILY EDUCATION NEEDS:: Discharge education, limitations and follow up plan of care including ask me three. ANTICIPATED BARRIERS TO DISCHARGE:: None identified she will return to skilled facility to compete rehab prior to returning home with resumption of services. TRANSPORTATION:: Via wheelchair van at time of discharge PLAN:: Lorie currently has an NG tube, she will have a PRC transfusion x 2 units per provider. She has had one bowel movement since admission. She is receiving supplemental oxygen which is not her baseline. CM to continue to assist with discharge planning and disposition. Anticipate she will be ready for discharge in the next 48 hours and return to [facility]. Readmission - Within the Past 30 Days Yes or No: Y - Date of First Admission Date of 1st Admission: 12/02/18 - Date of this Admission Date of Admission: 12/06/18 This admission was: Through ED - Office Visit Since 1st Admission Have you seen your PCP in the office since discharge?: No Had an appointment Been Scheduled?: No Describe barriers for scheduling or getting an appointment: Patient was discharged from [facility] two days post op she was not seen by pcp she did have a follow up scheduled with othopedics - I. Interview patient and/or Family Difficulty reaching your doctor or getting an office appt?: No Have you had trouble purchasing/ or taking medication?: No - If the patient came from Ext. Facility Call the Facility to discuss the patient's admission: Lorie did not have a bowel movement prior to discharge after her total knee. Within 24 hours of discharge she returned to the ED for increase pain in her right leg. CM coordinated a direct admission from the [facility] to [facility]. At that time it was identified she did not have a BM this was reported to the skilled facility. Patient had increased pain requiring, increase pain control and medications she continued to not have a BM had increase abdominal pain and was admitted for SBO. - ED visits How many ED visits in the past 12 months: 3
--- NOTE | 2018-12-07 12:32 | INITIAL_ITS ---
- If Service Date Differs Date of service: 12/07/18 Time of Service: 11:40 Care Management Initial Assess REASON FOR HOSPITALIZATION:: SBO, fecal impaction status post RTKA PAST MEDICAL HISTORY/PAST SURGICAL HISTORY:: Dysphasia, anxiety, anemia, low back pain, headaches including migraines, hyperlipidemia, memory impairment, vitamin B 12 deficiency, vitamin D deficiency, cervical spondylosis, osteoarthritis, multiple sclerosis, hyperlipidemia, hypertensive disorder, chronic fatigue, ataxia, type 2 diabetes, prolapsed internal hemorrhoids. Surgical history: Hemorrhoidectomy, bowel resection, cataract surgery, hiatal hernia repair, hysterectomy, total right knee replacement. PREVIOUS FUNCTIONAL STATUS/SOCIAL/FAMILY SUPPORTS:: Lorie resides alone in a handicap accessible apartment at [facility] in [place], [place]. She has [facility] home health services four hours a day through [facility]. She reports no current support people in her life, but appears content with her apartment, setting and services. She uses a motorized W/C at baseline when leaving her apartment and utilizes a FWW in her apartment. She reports she is donating her brain to research because of her wish to help find a cure for MS. CURRENT FUNCTIONAL STATUS:: Lorie is lying in bed when CM into visit she is engaged during assessment. Lorie is alert and oriented, she is able to identify date time place accurately. Lorie is well-known to this protective services case worker related to recent admission, ED encounter, and now inpatient. Ute makes good eye contact she has a NG tube in place. She is going to recieve PRC transfusion today. She does state she is hungry and reports she had a bowel movement this morning. ADVANCE DIRECTIVES:: On file at [facility] Has patient been provided with information about the portal?: Yes Did the patient sign up for the portal?: No CODE STATUS:: Full Code CODE STATUS COMMENT:: COLST on file listed as DNR/DNI INSURANCE COVERAGE / FINANCIAL ISSUES:: Medicare, Medicaid CURRENT HOME/COMMUNITY SERVICES/EQUIPMENT:: Choice for care Highest needs, electric wheelchair, FWW, SASH, [facility] handicap accessible apartment and [facility] for transportation. PRIMARY CARE PHYSICIAN:: Gris Bates MD POTENTIAL DISCHARGE NEEDS:: [facility] to [facility] prior to returning home to the [facility]. PATIENT/FAMILY EDUCATION NEEDS:: Discharge education, limitations and follow up plan of care including ask me three. ANTICIPATED BARRIERS TO DISCHARGE:: None identified she will return to skilled facility to compete rehab prior to returning home with resumption of services. TRANSPORTATION:: Via wheelchair van at time of discharge PLAN:: Lorie currently has an NG tube, she will have a PRC transfusion x 2 units per provider. She has had one bowel movement since admission. She is receiving supplemental oxygen which is not her baseline. CM to continue to assist with discharge planning and disposition. Anticipate she will be ready for discharge in the next 48 hours and return to SNF [facility]. Readmission - Within the Past 30 Days Yes or No: Y - Date of First Admission Date of 1st Admission: 12/02/18 - Date of this Admission Date of Admission: 12/06/18 This admission was: Through ED - Office Visit Since 1st Admission Have you seen your PCP in the office since discharge?: No Had an appointment Been Scheduled?: No Describe barriers for scheduling or getting an appointment: Patient was discharged from [facility] two days post op she was not seen by pcp she did have a follow up scheduled with othopedics - I. Interview patient and/or Family Difficulty reaching your doctor or getting an office appt?: No Have you had trouble purchasing/ or taking medication?: No - If the patient came from Ext. Facility Call the Facility to discuss the patient's admission: Lorie did not have a bowel movement prior to discharge after her total knee. Within 24 hours of discharge she returned to the ED for increase pain in her right leg. CM coordinated a direct admission from the ED to [facility]. At that time it was identified she did not have a BM this was reported to the skilled facility. Patient had increased pain requiring, increase pain control and medications she continued to not have a BM had increase abdominal pain and was admitted for SBO. - ED visits How many ED visits in the past 12 months: 3
--- NOTE | 2018-12-07 14:10 | PT.INNT ---
Date of service: 12/07/18 Time of Service: 14:10 PT Notes Referral for physical therapy was received on 12/06/2018 at 21:50 p.m. for this patient with diagnosis of small bowel obstruction, fecal impaction, and status post right total knee arthroplasty on postoperative day 5. Patient was seen resting in bed with NGT in place and currently being transfused with packed red blood cells. Physical therapy evaluation deferred today with plan to attempt another evaluation on 12/08/2018.
[2018-12-07] MEDS: Magnesium Citrate 300 ML BTL NG (16:29)
[2018-12-07] MEDS: Normal Saline Flush 10 ML SYR IVP (21:30)
[2018-12-07] MEDS: Pantoprazole 40 MG VIAL IVP (21:30)
[2018-12-07] MEDS: Enoxaparin 30 MG/0.3 ML SYR SC (21:30)
[2018-12-07] MEDS: Ondansetron 4 MG/2 ML VIAL IVP (22:00)
[2018-12-07 22:01] LABS: HCT 35.1 % (36.0-46.0); HGB 11.1 g/dL (12.0-15.5)
[2018-12-08] VITALS (7 sets, daily range): BP systolic 115–153; BP diastolic 63–76; PULSE 71–80; RESP 17–19; TEMP 36.4–37.4; O2SAT 94–98
[2018-12-08] MEDS: Normal Saline Flush 10 ML SYR IVP ×4 (00:12→21:55)
[2018-12-08] MEDS: Normal Saline 1,000 ML 125 ML IV ×3 (05:11→20:30)
[2018-12-08] MEDS: ACETAMINOPHEN 1,000 MG/100 ML BTL 400 MG IVPB ×3 (05:11→21:55)
--- NOTE | 2018-12-08 09:07 | W.PM.PROGNOT ---
Date of Service Date of service: 12/08/18 Time of Service: 09:07 Assessment and Plan (1) Impacted stool in intestine: Current visit: Yes Status: Acute resolving (2) SBO (small bowel obstruction): Current visit: Yes Status: Acute resolving clamp ngt- think high residuals are from mg citrate. if does not tolerate clamp and water- than repeat xray. clinically appears to have resolved. (3) Status post total knee replacement, right: Current visit: Yes Status: Acute cont PT protein supp PT pt cannot go back to home- needs to go to rehab. ice and ibuprofen. try to avoid narcotics Subjective Patient reports: feels better and afebrile; denies nausea, vomiting and fever Interval history since last seen: mult lg bm. still high outpt from ngt- mostly clear so prob leftover mg citrate. pt wants to eat and go home. I don't think it is safe for her to go home- she needs to go back to rehab Exam Const General: cooperative, healthy appearing, comfortable, no acute distress, well developed and well groomed Nutritional Appearance: average body habitus and well nourished Orientation: alert, awake and oriented x3 HENMT Head: normal to inspection, normocephalic and atraumatic Ears: hearing grossly normal bilaterally and external ears normal General nose exam: external nose normal Face and sinus: normal facial exam and sinuses nontender Mouth: oral mucosae normal, lip normal, tongue normal and moist mucous membranes Teeth and gingiva: dentition normal Eyes General: appearance normal, both eyes and all related structures Conjunctivae: conjunctivae normal Sclera: sclerae normal Pupils: PERRL Neck Neck: normal visual inspection and full ROM Chest Chest: normal inspection of the chest Resp Effort & Inspection: normal respiratory effort, able to speak in complete sentences, no cough, no nasal flaring, not tachypneic and no use of accessory muscles Auscultation: clear to auscultation bilaterally, no rales, no rhonchi and no wheezes Cardio Jugular venous pressure: no JVD Rate: regular rate Rhythm: regular rhythm GI Inspection: normal to inspection, no edema and non-distended Palpation: soft, no masses, nontender and No ascites Auscultation: normal bowel sounds Other: soft. no pain. good BS.. post sx changes noted today Skin General skin exam: no rashes or lesions noted Trauma: no lacerations or abrasions Neuro General: alert, oriented x3, oriented, gait normal, moves all extremities, no focal motor deficits and CN's II-XI intact bilaterally Cognition: normal cognition Speech: speech normal Gait: normal gait Motor: muscle tone normal throughout Extrem General: normal to inspection, full ROM and no clubbing, cyanosis or edema Psych Appearance: grossly normal and well kempt Mental Status: mental status grossly normal Speech and Movement: speech and movement normal Affect: normal affect Objective Objective Clinical Data: Abnormal lab results 12/07/18 12/07/18 Range/Units 10:20 21:47 Hgb 11.1 L D (12.0-15.5) g/dL Hct 35.1 L D (36.0-46.0) % Crossmatch See Detail Vital Signs Temperature 36.4 C L 12/08/18 07:30 Temperature Source Tympanic 12/08/18 07:30 Pulse 74 12/08/18 07:30 Pulse Rhythm Regular 12/08/18 09:02 Pulse 97 H 12/06/18 17:40 Respiratory Rate 18 12/08/18 07:30 Respiratory Effort Non-Labored 12/08/18 09:02 Respiratory Depth Normal 12/08/18 09:02 Respiratory Pattern Normal 12/08/18 09:02 Blood Pressure 153/68 H 12/08/18 07:30 Blood Pressure Position Sitting 12/06/18 16:48 Pulse Oximetry 98 12/08/18 08:36 Oxygen Delivery Method Room Air 12/08/18 08:36 Oxygen Flow Rate 0 12/08/18 08:36 Pain Level 0 12/08/18 08:51 Comment 12/08/18 03:40 Intake & Output 12/07/18 12/07/18 12/08/18 11:59 23:59 11:59 Intake Total 1100 / 3020 1920 / 3020 962.5 / 962.5 Output Total 1725 / 4925 3200 / 4925 1000 / 1000 Balance -625 / -1905 -1280 / -1905 -37.5 / -37.5 Intake: IV 1100 / 2430 1330 / 2430 962.5 / 962.5 Blood Product 590 / 590 Rbc Leuko Reduced Unit 290 / 290 [id number] Rbc Leuko Reduced Unit 300 / 300 [id number] Output: Gastric Drainage 950 / 3050 2100 / 3050 550 / 550 Right Nare 950 / 3050 2100 / 3050 550 / 550 Urine 275 / 1175 900 / 1175 350 / 350 Stool 500 / 700 200 / 700 100 / 100 Other: Urine Color Light Deisi Light Deisi Light Deisi Urine Appearance Clear Clear Clear Stool Size Small Moderate Stool Characteristics Formed Liquid Liquid Liquid Brown Brown Green Laboratory Results WBC 5.51 k/cumm (4.4-10.8) D 12/07/18 06:30 RBC 2.74 m/cumm (4.00-5.20) L 12/07/18 06:30 Hgb 11.1 g/dL (12.0-15.5) L D 12/07/18 21:47 Hct 35.1 % (36.0-46.0) L D 12/07/18 21:47 MCV 100.0 fL (80-95) H 12/07/18 06:30 MCH 30.7 pg (27.0-33.0) 12/07/18 06:30 MCHC 30.7 g/dL (32.0-36.0) L 12/07/18 06:30 RDW 14.3 % (11.7-14.6) 12/07/18 06:30 Plt Count 350 x1000/uL (130-400) 12/07/18 06:30 MPV 8.6 fL (8.0-11.0) 12/07/18 06:30 Immature Gran % 0.2 12/07/18 06:30 Neutrophils % 57.4 12/07/18 06:30 Lymphocytes % 27.8 12/07/18 06:30 Monocytes % 11.8 12/07/18 06:30 Eosinophils % 2.4 12/07/18 06:30 Basophils % 0.4 12/07/18 06:30 Absolute Neutrophils 3.16 k/cumm (1.2-6.7) 12/07/18 06:30 Absolute Lymphocytes 1.53 k/cumm (1.2-3.4) 12/07/18 06:30 Absolute Monocytes 0.65 k/cumm (0.11-0.7) 12/07/18 06:30 Absolute Eosinophils 0.13 k/cumm (0.0-0.7) 12/07/18 06:30 Absolute Basophils 0.02 k/cumm (0.0-0.2) 12/07/18 06:30 RBC Morphology See below 12/06/18 17:00 Polychromasia Present 12/06/18 17:00 Macrocytosis 1+ 12/06/18 17:00 Sodium 136 mmol/L (136-145) 12/07/18 06:30 Potassium 3.8 mmol/L (3.5-5.1) 12/07/18 06:30 Chloride 99 mmol/L (98-107) 12/07/18 06:30 Carbon Dioxide 27.4 mmol/L (21.0-32.0) 12/07/18 06:30 Anion Gap 9.6 mmol/L (3-11) 12/07/18 06:30 BUN 24 mg/dL (7-18) H 12/07/18 06:30 Creatinine 1.39 mg/dL (0.55-1.02) H 12/07/18 06:30 Estimated GFR/1.73 m2 37.17 (mL/min/1.73m2) 12/07/18 06:30 Glucose 138 mg/dL (70-100) H D 12/07/18 06:30 Lactate 0.8 mmol/l (0.6-1.4) 12/07/18 06:30 Calcium 8.4 mg/dL (8.5-10.1) L 12/07/18 06:30 Magnesium 2.2 mg/dL (1.8-2.4) 12/07/18 06:30 Total Bilirubin 0.5 mg/dL (0.2-1.0) 12/07/18 06:30 AST 52 U/L (15-37) H 12/07/18 06:30 ALT 55 U/L (12-78) 12/07/18 06:30 Alkaline Phosphatase 157 U/L (46-116) H 12/07/18 06:30 Total Protein 6.3 g/dL (6.4-8.2) L 12/07/18 06:30 Albumin 2.5 g/dL (3.4-5.0) L 12/07/18 06:30 Amylase 95 U/L (25-115) 12/07/18 06:30 Lipase 847 U/L (73-393) H 12/07/18 06:30 Patient ABO/Rh O Positive 12/07/18 10:20 Antibody Screen Negative 12/07/18 10:20 Crossmatch See Detail 12/07/18 10:20
--- NOTE | 2018-12-08 09:17 | PT.INIE ---
Date of service: 12/08/18 Time of Service: 08:44 PT Notes Inpatient Physical Therapy Evaluation Date: 12/08/2017 Referring Doctor: Kelley Almeida MD PT Orders: PT CONSULT: S/P TKR Precautions: Fall. Standard. Patient Profile/Admitting Diagnosis: Patient is 73-year-old female who presented to the ED on 11/2718 with chief complaints of vomiting, constipation, and diffuse abdominal pain. She is also status post right knee arthroplasty on postoperative day 6. Patient was diagnosed with small bowel obstruction, fecal impaction, and was given 2 units of PRBCs yesterday. PMHX: Past Medical History Multiple sclerosis Headaches Anxiety and depression Hyperlipidemia Kidney stones Former smoker Gastroesophageal reflux disorder Past Surgical History Hysterectomy Hiatal hernia Trigger finger release Bowel resection Social History/Home Situation: Per notes, Lorie resides alone in a handicap accessible apartment at [facility] in [place], [place]. She has home coordinator services four hours a day through [facility]. She reports no current support people in her life, but appears content with her apartment, setting and services. She uses a motorized W/C at baseline when leaving her apartment and utilizes a FWW in her apartment. She reports she is donating her brain to research because of her wish to help find a cure for MS. Current Functional Limitations: Need for assistance in performing transfers and ambulation tasks using FWW Equipment Owned/DME: Motorized wheelchair. FWW. Subjective: Patient states that she did not sleep well last night and is extremely fatigued. She states that she wants to go home today terribly. She is hoping she can have something to drink through the oral route. Patient was advised that she remains NPO at this time. Objective: General Observation: Patient seen resting in bed. IV in right UE. NGT in place. Greene catheter in place. Ecchymosis on right knee and lower leg subsiding. Dressing placed on right knee surgical incision. Mental Status: Alert and oriented x3 Pain: Complains of moderate pain on right knee with active assistive range of motion exercises ROM: Right Upper Extremity: Shoulder Flexion WFL. Shoulder abduction WFL. Elbow flexion WFL. Wrist flexion WFL. Functional opening and closing of hand WFL. Left Upper Extremity: Shoulder Flexion WFL. Shoulder abduction WFL. Elbow flexion WFL. Wrist flexion WFL. Functional opening and closing of hand WFL. Right Lower Extremity: Hip flexion 0-95 degrees. Hip abduction 0-30. Knee flexion -5 to 105 degrees . Ankle dorsiflexion WFL. Ankle plantarflexion WFL. Left Lower Extremity: Hip flexion WFL. Hip abduction WFL. Knee flexion WFL. Ankle dorsiflexion WFL. Ankle plantarflexion WFL. Strength: Right Upper Extremity: Shoulder flexors 5/5. Shoulder abductors 5/5. Elbow flexors 5/5. Elbow extensors 5/5. [employer] Printer strong. Left Upper Extremity: Shoulder flexors 5/5. Shoulder abductors 5/5. Elbow flexors 5/5. Elbow extensors 5/5. [employer] Printer strong. Right Lower Extremity: Hip flexors 3-/5. Hip abductors 3-/5. Knee flexors 3-/5. Knee extensors 3-/5. Ankle dorsiflexors 4/5. Ankle plantarflexors 4/5. Left Lower Extremity:Hip flexors 4/5. Hip abductors 4/5. Knee flexors 4+/5. Knee extensors 4/5. Ankle dorsiflexors 4/5. Ankle plantarflexors 4/5. Bed Mobility/Transfers: Rolling minimal assist Supine to sit minimal assist Sit to supine minimal assist Sit to stand NT Stand to sit NT Bed to chair NT Chair to bed NT Gait: NT. Patient refused out-of-bed activities due to fatigue and moderate right knee pain. Consulted with nurse to premedicate patient an hour before this afternoon's PT session. Balance: Static Sitting: Good Dynamic Sitting: Fair Static Standing: NT Dynamic Standing: NT Special Tests: Mobility Limitations Standardized Measure [facility]-P[facility] 6 clicks Basic Mobility Inpatient Short Form: Raw Score: 10 [facility] Score: 77% deficit Informed Consent/Education: Patient instructed in purpose of PT consult and plan of care. Assessment: Patient is a 73 year old female referred to physical therapy services with the diagnosis of small bowel obstruction, fecal impaction, with status post right knee total arthroplasty on postoperative day 6. Patient presents with clinical signs and symptoms consistent with current/admitting diagnoses that have resulted to mobility limitations, gait instability, generalized weakness, and impairment of motor control as demonstrated by the following impairment level findings: 1. Decreased strength to B LE major muscle groups 2. Impaired sitting/standing balance 3. Impaired activity tolerance 4. Limitation of joint range of motion in right knee Impairments are contributing to the following functional limitations: 1. Dependent bed mobility skills 2. Increased dependence with transfers 3. Inability to safely ambulate without assistive device and physical assistance 4. Increase completion time for mobility ADL performance 5. Increased fall risk 6. Inability to negotiate steps alone safely Patient is assessed as a Moderate [id number] complexity based on the following: History: 73-year-old female with diagnoses listed above and is on postoperative day 6 after right total knee arthroplasty who initially lived alone but received homemaker services with community mobility through motorized wheelchair and indoor mobility through use of FWW Examination: Underlying impairments and functional limitations as noted above Presentation: Evolving Decision Makin moderate complexity Goals: Goals X1 week 1. Supine-Sit independent 2. Sit-Supine independent 3. Sit-Stand independent 4. Stand-Sit independent 5. Bed-Chair supervision 6. Chair-Bed supervision 7. Independent gait on level surface with use of least restrictive device for at least 300 feet without report of pain nor dyspnea 8. Independent stair negotiation while holding onto bilateral rails for at least 10 steps without report of pain nor dyspnea 9. Independent with home exercise program 10. Good static and dynamic standing balance/tolerance Plan of Care/Treatment Plan: 1-2x/day, 7 days/week x 1 week. Plan of care has been reviewed with the POURER providing the service under Physical Therapy direction. Initiate Physical Therapy intervention for strengthening, bed mobility, transfers, gait, stairs, balance training, use of assistive device. DISCHARGE RECOMMENDATIONS: Discharge back to SNF for progression of mobility level, caregiver/patient/staff education and training, and equipment procurement. TREATMENT CODE/TIME: [id number] 27 minutes beginning at 8:44 AM. Thank you for this referral. Carmen Lawrence, PT, DPT, CLT [facility]
--- NOTE | 2018-12-08 09:21 | IN_ITS ---
Date of service: 12/08/18 Time of Service: 08:44 PT Notes Inpatient Physical Therapy Evaluation Date: 12/08/2017 Referring Doctor: Kelley Almeida MD PT Orders: PT CONSULT: S/P TKR Precautions: Fall. Standard. Patient Profile/Admitting Diagnosis: Patient is 73-year-old female who presented to the ED on 11/2718 with chief complaints of vomiting, constipation, and diffuse abdominal pain. She is also status post right knee arthroplasty on postoperative day 6. Patient was diagnosed with small bowel obstruction, fecal impaction, and was given 2 units of PRBCs yesterday. PMHX: Past Medical History Multiple sclerosis Headaches Anxiety and depression Hyperlipidemia Kidney stones Former smoker Gastroesophageal reflux disorder Past Surgical History Hysterectomy Hiatal hernia Trigger finger release Bowel resection Social History/Home Situation: Per notes, Lorie resides alone in a handicap accessible apartment at [facility] in [place], [place]. She has custom home installer services four hours a day through [facility]. She reports no current support people in her life, but appears content with her apartment, setting and services. She uses a motorized W/C at baseline when leaving her apartment and utilizes a FWW in her apartment. She reports she is donating her brain to research because of her wish to help find a cure for MS. Current Functional Limitations: Need for assistance in performing transfers and ambulation tasks using FWW Equipment Owned/DME: Motorized wheelchair. FWW. Subjective: Patient states that she did not sleep well last night and is extremely fatigued. She states that she wants to go home today terribly. She is hoping she can have something to drink through the oral route. Patient was advised that she remains NPO at this time. Objective: General Observation: Patient seen resting in bed. IV in right UE. NGT in place. Greene catheter in place. Ecchymosis on right knee and lower leg subsiding. Dressing placed on right knee surgical incision. Mental Status: Alert and oriented x3 Pain: Complains of moderate pain on right knee with active assistive range of motion exercises ROM: Right Upper Extremity: Shoulder Flexion WFL. Shoulder abduction WFL. Elbow flexion WFL. Wrist flexion WFL. Functional opening and closing of hand WFL. Left Upper Extremity: Shoulder Flexion WFL. Shoulder abduction WFL. Elbow flexion WFL. Wrist flexion WFL. Functional opening and closing of hand WFL. Right Lower Extremity: Hip flexion 0-95 degrees. Hip abduction 0-30. Knee flexion -5 to 105 degrees . Ankle dorsiflexion WFL. Ankle plantarflexion WFL. Left Lower Extremity: Hip flexion WFL. Hip abduction WFL. Knee flexion WFL. Ankle dorsiflexion WFL. Ankle plantarflexion WFL. Strength: Right Upper Extremity: Shoulder flexors 5/5. Shoulder abductors 5/5. Elbow flexors 5/5. Elbow extensors 5/5. Heating And Cooling Systems Engineer strong. Left Upper Extremity: Shoulder flexors 5/5. Shoulder abductors 5/5. Elbow flexors 5/5. Elbow extensors 5/5. Heating And Cooling Systems Engineer strong. Right Lower Extremity: Hip flexors 3-/5. Hip abductors 3-/5. Knee flexors 3-/5. Knee extensors 3-/5. Ankle dorsiflexors 4/5. Ankle plantarflexors 4/5. Left Lower Extremity:Hip flexors 4/5. Hip abductors 4/5. Knee flexors 4+/5. Knee extensors 4/5. Ankle dorsiflexors 4/5. Ankle plantarflexors 4/5. Bed Mobility/Transfers: Rolling minimal assist Supine to sit minimal assist Sit to supine minimal assist Sit to stand NT Stand to sit NT Bed to chair NT Chair to bed NT Gait: NT. Patient refused out-of-bed activities due to fatigue and moderate right knee pain. Consulted with nurse to premedicate patient an hour before this afternoon's PT session. Balance: Static Sitting: Good Dynamic Sitting: Fair Static Standing: NT Dynamic Standing: NT Special Tests: Mobility Limitations Standardized Measure [facility] 6 clicks Basic Mobility Inpatient Short Form: Raw Score: 10 [facility] Score: 77% deficit Informed Consent/Education: Patient instructed in purpose of PT consult and plan of care. Assessment: Patient is a 73 year old female referred to physical therapy services with the diagnosis of small bowel obstruction, fecal impaction, with status post right knee total arthroplasty on postoperative day 6. Patient presents with clinical signs and symptoms consistent with current/admitting diagnoses that have resulted to mobility limitations, gait instability, generalized weakness, and impairment of motor control as demonstrated by the following impairment level findings: 1. Decreased strength to B LE major muscle groups 2. Impaired sitting/standing balance 3. Impaired activity tolerance 4. Limitation of joint range of motion in right knee Impairments are contributing to the following functional limitations: 1. Dependent bed mobility skills 2. Increased dependence with transfers 3. Inability to safely ambulate without assistive device and physical assistance 4. Increase completion time for mobility ADL performance 5. Increased fall risk 6. Inability to negotiate steps alone safely Patient is assessed as a Moderate 87042 complexity based on the following: History: 73-year-old female with diagnoses listed above and is on postoperative day 6 after right total knee arthroplasty who initially lived alone but received homemaker services with community mobility through motorized wheelchair and indoor mobility through use of FWW Examination: Underlying impairments and functional limitations as noted above Presentation: Evolving Decision Makin moderate complexity Goals: Goals X1 week 1. Supine-Sit independent 2. Sit-Supine independent 3. Sit-Stand independent 4. Stand-Sit independent 5. Bed-Chair supervision 6. Chair-Bed supervision 7. Independent gait on level surface with use of least restrictive device for at least 300 feet without report of pain nor dyspnea 8. Independent stair negotiation while holding onto bilateral rails for at least 10 steps without report of pain nor dyspnea 9. Independent with home exercise program 10. Good static and dynamic standing balance/tolerance Plan of Care/Treatment Plan: 1-2x/day, 7 days/week x 1 week. Plan of care has been reviewed with the SCIENTIFIC INFORMATICS LEADER providing the service under Physical Therapy direction. Initiate Physical Therapy intervention for strengthening, bed mobility, transfers, gait, stairs, balance training, use of assistive device. DISCHARGE RECOMMENDATIONS: Discharge back to SNF for progression of mobility level, caregiver/patient/staff education and training, and equipment procurement. TREATMENT CODE/TIME: 71669 27 minutes beginning at 8:44 AM. Thank you for this referral. Carmen Lawrence, PT, DPT, CLT [facility]
--- NOTE | 2018-12-08 14:46 | PT.INTREAT ---
Date of service: 12/08/18 Time of Service: 13:41 PT Notes Inpatient Physical Therapy Treatment Note [facility] Date: 12/08/2018 PRECAUTIONS: Fall. Standard. SUBJECTIVE: Patient agreeable to a PT treatment. She denies nausea, dizziness, and vomitting. She reports no chest pain nor headache throughout PT session. Patient states that she was able to recover well from last therapy session without undue fatigue. She does look forward to going home but PT reiterated that a SNF placement will really maximize mobility level and reduce fall risk. OBJECTIVE: Patient seen resting in bed. IV still in the left UE. Ecchymoses lightening up and subsiding. NGT off. Greene catheter taken out today. PAIN: Mild pain on right knee after ambulation activity. BED MOBILITY/TRANSFERS Rolling L/R: Minimal assist Supine-sit: Minimal assist to BLE Sit-supine: Minimal assist B LE Sit-stand: CGA Stand-sit: CGA Bed-Chair: CGA Chair-bed: CGA GAIT Assistive Device: FWW Weight bearing: WBAT on right LE Assist: CGA Distance: 160 feet with 4 turns and without standing rest Deviation: Slowed harmeet. Decreased step height on right LE. Verbal cues needed for walker management and during directional changes as well as with backing up to transfer surface. THEREX: Patient completed seated level exercises: R LAQs to tolerance x 10, Hip flexion/knee flexion x 5 as indicated in exercise flow sheet without undue fatigue, nor significant increase in pain, nor dyspnea. ASSESSMENT: Patient demonstrates better tolerance to physical therapy session with observed improvement in terms of pain level, activity tolerance, self-efficacy/confidence, and participation level. PLAN: Patient to progress with mobility level, functional performance, and knowledge of HEP to achieve previously established goals. Patient will have a benefit from a SNF placement in order to reduce fall risk and achieve mobility goals. TREATMENT CODE/TIME: 94003 40 minutes, 7110 15 minutes beginning at 13:41 PM.
--- NOTE | 2018-12-08 14:59 | PTTR_ITS ---
Date of service: 12/08/18 Time of Service: 13:41 PT Notes Inpatient Physical Therapy Treatment Note [facility] Date: 12/08/2018 PRECAUTIONS: Fall. Standard. SUBJECTIVE: Patient agreeable to a PT treatment. She denies nausea, dizziness, and vomitting. She reports no chest pain nor headache throughout PT session. Patient states that she was able to recover well from last therapy session without undue fatigue. She does look forward to going home but PT reiterated that a SNF placement will really maximize mobility level and reduce fall risk. OBJECTIVE: Patient seen resting in bed. IV still in the left UE. Ecchymoses lightening up and subsiding. NGT off. Greene catheter taken out today. PAIN: Mild pain on right knee after ambulation activity. BED MOBILITY/TRANSFERS Rolling L/R: Minimal assist Supine-sit: Minimal assist to BLE Sit-supine: Minimal assist B LE Sit-stand: CGA Stand-sit: CGA Bed-Chair: CGA Chair-bed: CGA GAIT Assistive Device: FWW Weight bearing: WBAT on right LE Assist: CGA Distance: 160 feet with 4 turns and without standing rest Deviation: Slowed harmeet. Decreased step height on right LE. Verbal cues needed for walker management and during directional changes as well as with backing up to transfer surface. THEREX: Patient completed seated level exercises: R LAQs to tolerance x 10, Hip flexion/knee flexion x 5 as indicated in exercise flow sheet without undue fatigue, nor significant increase in pain, nor dyspnea. ASSESSMENT: Patient demonstrates better tolerance to physical therapy session with observed improvement in terms of pain level, activity tolerance, self- efficacy/confidence, and participation level. PLAN: Patient to progress with mobility level, functional performance, and knowledge of HEP to achieve previously established goals. Patient will have a benefit from a SNF placement in order to reduce fall risk and achieve mobility goals. TREATMENT CODE/TIME: 53145 40 minutes, 7110 15 minutes beginning at 13:41 PM.
--- NOTE | 2018-12-08 15:16 | CHAPLAIN ---
I had a short visit with Jolanta. She was wanting to rest. I offered support and will continue to visit.
--- NOTE | 2018-12-08 15:31 | PDOC.CMPRO ---
- If Service Date Differs Date of service: 12/08/18 Time of Service: 15:31 Care Management Progress Note S/O: Lorie is ambulating in the halls with PT her NG tube has been removed. She is smiling and interacting she is passing flatus. Her diet has been advanced and she has 5 bowel movements per reports. Patient wants to return home however understands that she needs to complete SNF prior to returning home. A:Lorie is a 73 year old female recent RTKA admitted with SBO. P:Lorie remains acute today she is ambulating with PT. Anticipate she will be ready for [facility] plan will be for 11:00 am via wheelchair van. CM to continue to assist with discharge planning and disposition.
[2018-12-08] MEDS: Ondansetron 4 MG/2 ML VIAL IVP (16:31)
--- NOTE | 2018-12-08 16:33 | W.PM.PROGNOT ---
Date of Service Date of service: 12/08/18 Time of Service: 16:33 Assessment and Plan (1) SBO (small bowel obstruction): Current visit: Yes Status: Acute A\\ Was started on clear liquids. I can't find how much she has had to drink so far. Abdomen seems distended, I asked her nurse Kale and he states that her abdomen is more distended then it was earlier. Abdomen is soft and non-tender P\\ NPO again Anti-nausea medications If she has multiple episodes of vomiting may need her NG tube back KUB in am if no improvement Subjective Interval history since last seen: Patient complains of feeling sick to her stomach. She started dry heaving as well. Can't tell me whether she is still passing flatus or not. Exam Resp Effort & Inspection: normal respiratory effort Auscultation: clear to auscultation bilaterally Cardio Rate: regular rate Rhythm: regular rhythm GI Inspection: distended Palpation: soft and nontender Auscultation: absent bowel sounds Objective Objective Clinical Data: Abnormal lab results 12/07/18 12/07/18 Range/Units 10:20 21:47 Hgb 11.1 L D (12.0-15.5) g/dL Hct 35.1 L D (36.0-46.0) % Crossmatch See Detail Vital Signs Temperature 98.2 F 12/08/18 16:03 Temperature Source Tympanic 12/08/18 16:03 Pulse 71 12/08/18 16:03 Pulse Rhythm Regular 12/08/18 09:02 Pulse 97 H 12/06/18 17:40 Respiratory Rate 17 12/08/18 16:03 Respiratory Effort Non-Labored 12/08/18 09:02 Respiratory Depth Normal 12/08/18 09:02 Respiratory Pattern Normal 12/08/18 09:02 Blood Pressure 149/66 H 12/08/18 16:03 Blood Pressure Position Sitting 12/06/18 16:48 Pulse Oximetry 94 L 12/08/18 16:03 Oxygen Delivery Method Room Air 12/08/18 16:03 Oxygen Flow Rate 0 12/08/18 16:03 Pain Level 6 12/08/18 14:06 Comment 12/08/18 03:40 Intake & Output 12/07/18 12/08/18 12/08/18 23:59 11:59 23:59 Intake Total 1920 / 3020 1062.5 968.75 Output Total 3200 / 4925 1000 / 1800 800 / 1800 Balance -1280 / -1905 62.5 / 231.25 168.75 / 231.25 Intake: IV 1330 / 2430 1062.5 968.75 / Blood Product 590 / 590 Rbc Leuko Reduced Unit 290 / 290 [id number] Rbc Leuko Reduced Unit 300 / 300 [id number] Output: Gastric Drainage 2100 / 3050 550 / 550 0 / 550 Right Nare 2100 / 3050 550 / 550 0 / 550 Urine 900 / 1175 350 / 1150 800 / 1150 Stool 200 / 700 100 / 100 Other: Urine Color Light Deisi Light Deiis Yellow Urine Appearance Clear Clear Clear Stool Size Small Moderate Stool Characteristics Liquid Liquid Brown Brown Green Laboratory Results WBC 5.51 k/cumm (4.4-10.8) D 12/07/18 06:30 RBC 2.74 m/cumm (4.00-5.20) L 12/07/18 06:30 Hgb 11.1 g/dL (12.0-15.5) L D 12/07/18 21:47 Hct 35.1 % (36.0-46.0) L D 12/07/18 21:47 MCV 100.0 fL (80-95) H 12/07/18 06:30 MCH 30.7 pg (27.0-33.0) 12/07/18 06:30 MCHC 30.7 g/dL (32.0-36.0) L 12/07/18 06:30 RDW 14.3 % (11.7-14.6) 12/07/18 06:30 Plt Count 350 x1000/uL (130-400) 12/07/18 06:30 MPV 8.6 fL (8.0-11.0) 12/07/18 06:30 Immature Gran % 0.2 12/07/18 06:30 Neutrophils % 57.4 12/07/18 06:30 Lymphocytes % 27.8 12/07/18 06:30 Monocytes % 11.8 12/07/18 06:30 Eosinophils % 2.4 12/07/18 06:30 Basophils % 0.4 12/07/18 06:30 Absolute Neutrophils 3.16 k/cumm (1.2-6.7) 12/07/18 06:30 Absolute Lymphocytes 1.53 k/cumm (1.2-3.4) 12/07/18 06:30 Absolute Monocytes 0.65 k/cumm (0.11-0.7) 12/07/18 06:30 Absolute Eosinophils 0.13 k/cumm (0.0-0.7) 12/07/18 06:30 Absolute Basophils 0.02 k/cumm (0.0-0.2) 12/07/18 06:30 RBC Morphology See below 12/06/18 17:00 Polychromasia Present 12/06/18 17:00 Macrocytosis 1+ 12/06/18 17:00 Sodium 136 mmol/L (136-145) 12/07/18 06:30 Potassium 3.8 mmol/L (3.5-5.1) 12/07/18 06:30 Chloride 99 mmol/L (98-107) 12/07/18 06:30 Carbon Dioxide 27.4 mmol/L (21.0-32.0) 12/07/18 06:30 Anion Gap 9.6 mmol/L (3-11) 12/07/18 06:30 BUN 24 mg/dL (7-18) H 12/07/18 06:30 Creatinine 1.39 mg/dL (0.55-1.02) H 12/07/18 06:30 Estimated GFR/1.73 m2 37.17 (mL/min/1.73m2) 12/07/18 06:30 Glucose 138 mg/dL (70-100) H D 12/07/18 06:30 Lactate 0.8 mmol/l (0.6-1.4) 12/07/18 06:30 Calcium 8.4 mg/dL (8.5-10.1) L 12/07/18 06:30 Magnesium 2.2 mg/dL (1.8-2.4) 12/07/18 06:30 Total Bilirubin 0.5 mg/dL (0.2-1.0) 12/07/18 06:30 AST 52 U/L (15-37) H 12/07/18 06:30 ALT 55 U/L (12-78) 12/07/18 06:30 Alkaline Phosphatase 157 U/L (46-116) H 12/07/18 06:30 Total Protein 6.3 g/dL (6.4-8.2) L 12/07/18 06:30 Albumin 2.5 g/dL (3.4-5.0) L 12/07/18 06:30 Amylase 95 U/L (25-115) 12/07/18 06:30 Lipase 847 U/L (73-393) H 12/07/18 06:30 Patient ABO/Rh O Positive 12/07/18 10:20 Antibody Screen Negative 12/07/18 10:20 Crossmatch See Detail 12/07/18 10:20
--- NOTE | 2018-12-08 18:57 | NUR.NOTE ---
Pt is dry heaving and has increased abd pain and distention. VSS. Pt i resting in bed at this time. Notifying doctor. Nursing Note:
[2018-12-08] MEDS: Ondansetron 4 MG/2 ML VIAL 8 MG IVP (20:24)
[2018-12-08] MEDS: Pantoprazole 40 MG VIAL IVP (21:55)
--- NOTE | 2018-12-08 22:35 | NUR.NOTE ---
Patient complained of dry heaving, stat dose of zofran 8mg given. No relief voiced, Charge Nurse informed and NG tube was reinserted on intermittent suction. Bile stained secretion noted.
[2018-12-09] MEDS: Ondansetron 4 MG/2 ML VIAL IVP ×3 (02:21→12:28)
[2018-12-09] MEDS: Normal Saline 1,000 ML 125 ML IV ×3 (04:10→22:03)
[2018-12-09] MEDS: ACETAMINOPHEN 1,000 MG/100 ML BTL 400 MG IVPB ×2 (06:22→19:50)
--- NOTE | 2018-12-09 07:20 | W.PM.PROGNOT ---
Documented by User: MEGAN Healy 12/09/18 07:25 Date of Service Date of service: 12/09/18 Time of Service: 07:20 Assessment and Plan (1) Impacted stool in intestine: Current visit: Yes Status: Acute A// Patient continues to have nausea and abdominal pain this morning despite NG tube placement and multiple BMs over night. Will order KUB for further evaluation to see if her obstipation vs. SBO is starting to resolve. NG tube- 350 cc's out overnight BM's- 4 BM's of liquid, green stool ABD-Patient refused abdominal exam. Continues to have pain. She continues with nausea. No vomiting or wrenching since placement of NG tube. DIET- NPO P// Order KUB to evaluate for any change in her obstipation vs SBO. (2) SBO (small bowel obstruction): Current visit: Yes Status: Acute Subjective Interval history since last seen: I am so nausea's. NG tube in place. Patient reports she had several BMs over night, however she continues to have abdominal pain. Exam Const General: in distress mild Orientation: alert GI Other: Patient refused abdominal exam. Objective Objective Clinical Data: Vital Signs Temperature 36.7 C 12/08/18 23:56 Temperature Source Tympanic 12/08/18 23:56 Pulse 72 12/08/18 23:56 Pulse Rhythm Regular 12/08/18 20:00 Pulse 97 H 12/06/18 17:40 Respiratory Rate 18 12/08/18 23:56 Respiratory Effort Non-Labored 12/08/18 20:00 Respiratory Depth Normal 12/08/18 20:00 Respiratory Pattern Normal 12/08/18 20:00 Blood Pressure 146/69 H 12/08/18 23:56 Blood Pressure Position Sitting 12/06/18 16:48 Pulse Oximetry 96 12/08/18 23:56 Oxygen Delivery Method Room Air 12/08/18 23:56 Oxygen Flow Rate 0 12/08/18 23:56 Pain Level 8 12/09/18 00:40 Comment 12/08/18 03:40 Intake & Output 12/08/18 12/09/18 12/09/18 18:59 06:59 18:59 Intake Total 1368.75 / 3366.666 1997.916 / 3366.666 Output Total 800 / 1150 350 / 1150 Balance 568.75 / 2216.666 1647.916 / 2216.666 Intake: IV 1068.75 / 3066.666 1997.916 / 3066.666 Oral 300 / 300 Output: Gastric Drainage 0 / 350 350 / 350 Left Nare 350 / 350 Right Nare 0 / 0 Urine 800 / 800 Other: Urine Color Yellow Yellow Urine Appearance Clear Clear Urine Odor None Comment incontinent of small amount of urine Stool Size Small Small Stool Characteristics Soft Liquid Brown Voiding Methods Diaper Bedside Commode Incontinent Laboratory Results WBC 5.51 k/cumm (4.4-10.8) D 12/07/18 06:30 RBC 2.74 m/cumm (4.00-5.20) L 12/07/18 06:30 Hgb 11.1 g/dL (12.0-15.5) L D 12/07/18 21:47 Hct 35.1 % (36.0-46.0) L D 12/07/18 21:47 MCV 100.0 fL (80-95) H 12/07/18 06:30 MCH 30.7 pg (27.0-33.0) 12/07/18 06:30 MCHC 30.7 g/dL (32.0-36.0) L 12/07/18 06:30 RDW 14.3 % (11.7-14.6) 12/07/18 06:30 Plt Count 350 x1000/uL (130-400) 12/07/18 06:30 MPV 8.6 fL (8.0-11.0) 12/07/18 06:30 Immature Gran % 0.2 12/07/18 06:30 Neutrophils % 57.4 12/07/18 06:30 Lymphocytes % 27.8 12/07/18 06:30 Monocytes % 11.8 12/07/18 06:30 Eosinophils % 2.4 12/07/18 06:30 Basophils % 0.4 12/07/18 06:30 Absolute Neutrophils 3.16 k/cumm (1.2-6.7) 12/07/18 06:30 Absolute Lymphocytes 1.53 k/cumm (1.2-3.4) 12/07/18 06:30 Absolute Monocytes 0.65 k/cumm (0.11-0.7) 12/07/18 06:30 Absolute Eosinophils 0.13 k/cumm (0.0-0.7) 12/07/18 06:30 Absolute Basophils 0.02 k/cumm (0.0-0.2) 12/07/18 06:30 RBC Morphology See below 12/06/18 17:00 Polychromasia Present 12/06/18 17:00 Macrocytosis 1+ 12/06/18 17:00 Sodium 136 mmol/L (136-145) 12/07/18 06:30 Potassium 3.8 mmol/L (3.5-5.1) 12/07/18 06:30 Chloride 99 mmol/L (98-107) 12/07/18 06:30 Carbon Dioxide 27.4 mmol/L (21.0-32.0) 12/07/18 06:30 Anion Gap 9.6 mmol/L (3-11) 12/07/18 06:30 BUN 24 mg/dL (7-18) H 12/07/18 06:30 Creatinine 1.39 mg/dL (0.55-1.02) H 12/07/18 06:30 Estimated GFR/1.73 m2 37.17 (mL/min/1.73m2) 12/07/18 06:30 Glucose 138 mg/dL (70-100) H D 12/07/18 06:30 Lactate 0.8 mmol/l (0.6-1.4) 12/07/18 06:30 Calcium 8.4 mg/dL (8.5-10.1) L 12/07/18 06:30 Magnesium 2.2 mg/dL (1.8-2.4) 12/07/18 06:30 Total Bilirubin 0.5 mg/dL (0.2-1.0) 12/07/18 06:30 AST 52 U/L (15-37) H 12/07/18 06:30 ALT 55 U/L (12-78) 12/07/18 06:30 Alkaline Phosphatase 157 U/L (46-116) H 12/07/18 06:30 Total Protein 6.3 g/dL (6.4-8.2) L 12/07/18 06:30 Albumin 2.5 g/dL (3.4-5.0) L 12/07/18 06:30 Amylase 95 U/L (25-115) 12/07/18 06:30 Lipase 847 U/L (73-393) H 12/07/18 06:30 Patient ABO/Rh O Positive 12/07/18 10:20 Antibody Screen Negative 12/07/18 10:20 Crossmatch See Detail 12/07/18 10:20 Documented by User: Kelley Almeida DO 12/09/18 13:42 Assessment and Plan (1) Nausea: Current visit: Yes Status: Acute pt seen and examined. Pt c/o abdominal pain. pt still c/o nausea. nothing sounds good to eat. pt had mult. BM. tube has been clamped since 1000am. no n/v since than. pt has been up walking w/ PT. Pt is doing well. no headaches. No CP or SOB. no productive cough. no dysuria. smith is out. pt is very awake and alert today. RN thinks maybe the morphine as making her nauseated. Morphine has been stopped. pt abdominal exam today is the same as yesterdays. pt says it hurts but w/ deep palpation. pt Hx and reaction to PE is unreliable. She has no distention now and good bs. Remove tube at 3pm is no further n/v. and try cl liq. cont walking no abx. cont dvt proph and PPI.
[2018-12-09 07:24] VITALS: BP 126/69; PULSE 67; RESP 20; TEMP 36.9; O2SAT 95
[2018-12-09 07:24] LABS: HCT 31.4 % (36.0-46.0); HGB 9.8 g/dL (12.0-15.5)
[2018-12-09 07:36] LABS: Amylase 37 U/L (25-115); Anion Gap 9.6 mmol/L (3-11); BUN 13 mg/dL (7-18); CO2 25.4 mmol/L (21.0-32.0); CREATININE 0.88 mg/dL (0.55-1.02); Calcium 7.2 mg/dL (8.5-10.1); Chloride 100 mmol/L (98-107); Glucose 114 mg/dL (70-100); Lipase 142 U/L (73-393); Magnesium 2.2 mg/dL (1.8-2.4); Potassium 3.5 mmol/L (3.5-5.1); Sodium 135 mmol/L (136-145)
--- NOTE | 2018-12-09 08:00 | DI.RAD_ITS ---
SYMPTOM/DIAGNOSIS: ABD PAIN, NAUSEA ACUTE ABDOMINAL SERIES: Comparison is made with 12/06 and 12/07/18. The heart size is stable. Pulmonary vasculature is within normal limits. The lungs are free of infiltrates or effusions. The tip of the nasogastric tube is again seen in the stomach. No pneumoperitoneum or organomegaly is seen. The bowel gas pattern is nonspecific. No evidence of obstruction is seen. Degenerative changes are seen in the spine. IMPRESSION: No evidence to suggest bowel obstruction.
[2018-12-09] MEDS: Normal Saline Flush 10 ML SYR IVP ×3 (08:20→20:12)
--- NOTE | 2018-12-09 10:41 | PDOC.CMPRO ---
Care Management Progress Note S/O-Met with Lorie today. She is curled up in her bed with emesis bag in her lap, stating she still has pain. Spoke with Dr Gee who indicates she will probably be ready for return to [facility] tomorrow, depending upon progress. A-73 yo woman admitted from [facility] with possible SBO, fecal impaction. P-Transfer back to [facility] as per MD via w/c van which will be arranged with [facility] when patient ready for transport.
[2018-12-09] MEDS: Ketorolac 15 MG/ML VIAL IVP ×2 (10:45→16:57)
--- NOTE | 2018-12-09 12:41 | CMPROGNOTE_ITS ---
Care Management Progress Note S/O-Met with Lorie today. She is curled up in her bed with emesis bag in her lap, stating she still has pain. Spoke with Dr Gee who indicates she will probably be ready for return to [facility] tomorrow, depending upon progress. A-73 yo woman admitted from [facility] with possible SBO, fecal impaction. P-Transfer back to [facility] as per MD via w/c van which will be arranged with [facility] when patient ready for transport.
[2018-12-09 15:30] VITALS: BP 157/77; PULSE 66; RESP 20; TEMP 37.1; O2SAT 98
--- NOTE | 2018-12-09 17:51 | PT.INTREAT ---
Date of service: 12/09/18 Time of Service: 11:41 PT Notes Inpatient Physical Therapy Treatment Note [facility] Date: 12/09/2018 PRECAUTIONS: Fall. Standard. SUBJECTIVE: Patient agreeable to a PT treatment. She reports nausea that started early this morning. In the afternoon when she was seen for second session, she reported headache localized on the right frontal and orbital areas and states that there is increased hearing on the right eye. OBJECTIVE: Patient seen resting in bed. IV still in the left UE. Ecchymoses lightening up and subsiding. PAIN: Discomfort reported on right frontal area and right orbital area. Nurse updated at outside complaint BED MOBILITY/TRANSFERS Rolling L/R: CGA assist Supine-sit: CGA Sit-supine: CGA Sit-stand: CGA Stand-sit: CGA Bed-Chair: CGA Chair-bed: CGA GAIT Assistive Device: FWW Weight bearing: WBAT on right LE Assist: CGA Distance: 15 feet to bathroom with toileting transfer assist provided. Deviation: Slowed harmeet. Decreased step height on right LE. Verbal cues needed for walker management and during directional changes as well as with backing up to transfer surface. THEREX: Patient refused any bed level and seated exercises due to nausea in the morning and same in the afternoon due to headache and right orbital pain. ASSESSMENT: Nurse was updated about reports of nausea and headache during both sessions. Nurse states that patient was given something to manage nausea and will look at addressing new report of headache and right orbital pain. PLAN: Patient to progress with mobility level, functional performance, and knowledge of HEP to achieve previously established goals. Patient will have a benefit from a SNF placement in order to reduce fall risk and achieve mobility goals. TREATMENT CODE/TIME: 55483 21 minutes, beginning at 11:41 PM. No charge was made for the afternoon session due to patient refusal.
[2018-12-09] MEDS: Bisacodyl 5 MG TABEC PO (20:00)
[2018-12-09] MEDS: Sennosides/Docusate Sodium TAB 1 TAB PO (20:00)
[2018-12-09] MEDS: Enoxaparin 30 MG/0.3 ML SYR SC (20:12)
[2018-12-09] MEDS: Pantoprazole 40 MG VIAL IVP (20:12)
[2018-12-09] MEDS: traMADol 50 MG TAB PO (20:40)
[2018-12-09 23:15] VITALS: BP 138/75; PULSE 66; RESP 18; TEMP 36; O2SAT 97
[2018-12-10] MEDS: Ondansetron 4 MG/2 ML VIAL IVP ×2 (00:34→10:20)
[2018-12-10] MEDS: Ketorolac 15 MG/ML VIAL IVP (00:37)
[2018-12-10] MEDS: traMADol 50 MG TAB PO (02:50)
[2018-12-10] MEDS: ACETAMINOPHEN 1,000 MG/100 ML BTL 400 MG IVPB ×2 (03:22→11:35)
[2018-12-10] MEDS: Normal Saline 1,000 ML 125 ML IV (06:30)
--- NOTE | 2018-12-10 06:50 | W.PM.PROGNOT ---
Documented by User: MEGAN Healy 12/10/18 06:59 Date of Service Date of service: 12/10/18 Time of Service: 06:50 Assessment and Plan (1) SBO (small bowel obstruction): Current visit: Yes Status: Acute Denies abdominal pain. (+) Flatus NAUSEA- Resolved DIET- Clear liquids. Minimal PO intake over night. Tolerating this so far. PAIN- Denies pain. Disposition- D/C to Rehab once tolerating normal diet (2) Nausea: Current visit: Yes Status: Acute Subjective Interval history since last seen: Arrived with the patient lying in bed. Go Away. She denies nausea, vomiting, or abdominal pain. Exam Const General: cooperative and comfortable Orientation: alert and oriented x3 GI Inspection: non-distended Palpation: soft, no guarding and nontender Auscultation: normal bowel sounds Objective Objective Clinical Data: Abnormal lab results 12/09/18 12/09/18 Range/Units 06:35 06:35 Hgb 9.8 L (12.0-15.5) g/dL Hct 31.4 L (36.0-46.0) % Sodium 135 L (136-145) mmol/L Glucose 114 H (70-100) mg/dL Calcium 7.2 L (8.5-10.1) mg/dL Vital Signs Temperature 36 C L 12/09/18 23:15 Temperature Source Tympanic 12/09/18 23:15 Pulse 66 12/09/18 23:15 Pulse Rhythm Regular 12/10/18 00:30 Pulse 97 H 12/06/18 17:40 Respiratory Rate 18 12/09/18 23:15 Respiratory Effort 12/10/18 00:30 Respiratory Depth Normal 12/10/18 00:30 Respiratory Pattern Normal 12/10/18 00:30 Blood Pressure 138/75 12/09/18 23:15 Blood Pressure Position Sitting 12/06/18 16:48 Pulse Oximetry 97 12/09/18 23:15 Oxygen Delivery Method Room Air 12/09/18 23:15 Oxygen Flow Rate 0 12/09/18 23:15 Pain Level 7 12/10/18 02:50 Comment 12/08/18 03:40 Intake & Output 12/09/18 12/09/18 12/10/18 06:59 18:59 06:59 Intake Total 1997.916 / 3366.666 1743.75 / 3520.00 1776.25 / 3520.00 Output Total 350 / 1150 300 / 300 Balance 164.916 / 2216.666 1443.75 / 3220.00 1776.25 / 3220.00 Intake: IV 3066.666 1493.75 / 3120.00 1626.25 / 3120.00 Oral 250 / 400 150 / 400 Output: Gastric Drainage 350 / 350 Left Nare 350 / 350 Urine 300 / 300 Other: Urine Color Yellow Yellow Yellow Urine Appearance Clear Clear Clear Urine Odor None Normal None Comment pt voided in the toilet Stool Size Small Small Stool Characteristics Liquid Brown Voiding Methods Bedside Commode Toilet Toilet Laboratory Results WBC 5.51 k/cumm (4.4-10.8) D 12/07/18 06:30 RBC 2.74 m/cumm (4.00-5.20) L 12/07/18 06:30 Hgb 9.8 g/dL (12.0-15.5) L 12/09/18 06:35 Hct 31.4 % (36.0-46.0) L 12/09/18 06:35 MCV 100.0 fL (80-95) H 12/07/18 06:30 MCH 30.7 pg (27.0-33.0) 12/07/18 06:30 MCHC 30.7 g/dL (32.0-36.0) L 12/07/18 06:30 RDW 14.3 % (11.7-14.6) 12/07/18 06:30 Plt Count 350 x1000/uL (130-400) 12/07/18 06:30 MPV 8.6 fL (8.0-11.0) 12/07/18 06:30 Immature Gran % 0.2 12/07/18 06:30 Neutrophils % 57.4 12/07/18 06:30 Lymphocytes % 27.8 12/07/18 06:30 Monocytes % 11.8 12/07/18 06:30 Eosinophils % 2.4 12/07/18 06:30 Basophils % 0.4 12/07/18 06:30 Absolute Neutrophils 3.16 k/cumm (1.2-6.7) 12/07/18 06:30 Absolute Lymphocytes 1.53 k/cumm (1.2-3.4) 12/07/18 06:30 Absolute Monocytes 0.65 k/cumm (0.11-0.7) 12/07/18 06:30 Absolute Eosinophils 0.13 k/cumm (0.0-0.7) 12/07/18 06:30 Absolute Basophils 0.02 k/cumm (0.0-0.2) 12/07/18 06:30 RBC Morphology See below 12/06/18 17:00 Polychromasia Present 12/06/18 17:00 Macrocytosis 1+ 12/06/18 17:00 Sodium 135 mmol/L (136-145) L 12/09/18 06:35 Potassium 3.5 mmol/L (3.5-5.1) 12/09/18 06:35 Chloride 100 mmol/L (98-107) 12/09/18 06:35 Carbon Dioxide 25.4 mmol/L (21.0-32.0) 12/09/18 06:35 Anion Gap 9.6 mmol/L (3-11) 12/09/18 06:35 BUN 13 mg/dL (7-18) D 12/09/18 06:35 Creatinine 0.88 mg/dL (0.55-1.02) D 12/09/18 06:35 Estimated GFR/1.73 m2 >= 60.00 (mL/min/1.73m2) 12/09/18 06:35 Glucose 114 mg/dL (70-100) H 12/09/18 06:35 Lactate 0.8 mmol/l (0.6-1.4) 12/07/18 06:30 Calcium 7.2 mg/dL (8.5-10.1) L 12/09/18 06:35 Magnesium 2.2 mg/dL (1.8-2.4) 12/09/18 06:35 Total Bilirubin 0.5 mg/dL (0.2-1.0) 12/07/18 06:30 AST 52 U/L (15-37) H 12/07/18 06:30 ALT 55 U/L (12-78) 12/07/18 06:30 Alkaline Phosphatase 157 U/L (46-116) H 12/07/18 06:30 Total Protein 6.3 g/dL (6.4-8.2) L 12/07/18 06:30 Albumin 2.5 g/dL (3.4-5.0) L 12/07/18 06:30 Amylase 37 U/L (25-115) 12/09/18 06:35 Lipase 142 U/L (73-393) 12/09/18 06:35 Patient ABO/Rh O Positive 12/07/18 10:20 Antibody Screen Negative 12/07/18 10:20 Crossmatch See Detail 12/07/18 10:20 Documented by User: Lexie Gee MD 12/10/18 10:11
[2018-12-10 07:04] LABS: Platelet Count 396 x1000/uL (130-400)
[2018-12-10 07:52] VITALS: BP 145/69; PULSE 81; RESP 19; TEMP 36.3; O2SAT 97
[2018-12-10] MEDS: Sennosides/Docusate Sodium TAB 1 TAB PO (08:11)
[2018-12-10] MEDS: Bisacodyl 5 MG TABEC PO (08:11)
--- NOTE | 2018-12-10 09:57 | W.PM.DS.N ---
Date of service: 12/10/18 Time of Service: 10:28 DS: Diagnosis Discharge Diagnosis (1) SBO (small bowel obstruction): Status: Acute (2) Nausea: Status: Acute Discharge Plan Disposition Patient Disposition: SNF (LEVEL 1) [facility] Condition: Stable Discharge Details Reason For Visit: SBO, FECAL IMPACTION Admit Date/Time: 12/06/18 20:14 Admit Provider: Kelley Almeida Attending Provider: Kelley Almeida Primary Care Provider: [facility] Hospital Course: 73-year-old female with a history of diabetes, hypertension, hyperlipidemia, diverticulosis, small bowel obstruction, bowel resection and 5 days status post right total knee replacement who presents with vomiting, constipation and diffuse abdominal pain and distention for the past 2 days. Sent from [facility] for concern for small bowel obstruction. CT scan showed dilated proximal small bowel and a lot of stool in the large bowel. She was admitted withan NG tube for decompression and given enemas. PAD #2 she started passing flatus and she had had several BM's. Her NG tube was clamped and she was given water which she tolerated. The NG tube was removed later that day. In the afternoon she started having dry heaving which was not controlled with Zofran. her abdomen was more distended and there were no BS. NG tube was placed again and there was only 350 cc of fluid. XRAY's the next days howed normal bowel size. NG tube was removed again and she tolerated a clear liquid diet. She was advanced to a soft diet on 12/10/18 which she tolerated. Patient was discharged back to rehab for continued rehab for her knee surgery. Needs to be kept on Colace +/- miralax to keep her from getting constipated. Minimize Narcotic use. Follow up with her orthopeadic surgeon as scheduled and with her PCP once she is released from Rehab. No follow up needed with surgery. Home Meds and New Rx's Prescriptions: Continued omeprazole 20 mg capsule,delayed release(DR/EC) 20 mg PO BID Qty: 180 RF: 4 gabapentin 300 mg capsule 300 mg PO TID Qty: 270 RF: 3 ferrous sulfate 325 mg (65 mg iron) tablet 325 mg PO DAILY Qty: 90 RF: 3 meloxicam 7.5 mg tablet 15 mg PO DAILY RF: 0 mirtazapine 7.5 mg tablet 7.5 mg PO HS Qty: 30 RF: 5 acetaminophen [Tylenol Arthritis Pain] 650 mg tablet extended release 1,300 mg PO BID RF: 0 estradiol [Vagifem] 10 MCG tablet 10 mcg VG as directed Qty: 30 RF: 6 calcium carbonate-vitamin D3 [Calcium 600 + D(3)] 600 mg(1,500mg) -400 unit tablet 1 tab PO BID Qty: 60 RF: 11 Vision Plus Lutein tablet 1 tab PO DAILY Qty: 90 RF: 4 amitriptyline 100 mg tablet 100 mg PO HS Qty: 90 RF: 4 alendronate 70 mg tablet 70 mg PO weekly Qty: 12 RF: 4 hydroxyzine HCl 25 mg tablet 25 - 50 mg PO DIRECTED PRN (Reason: headache) Qty: 90 RF: 4 potassium chloride 20 mEq tablet extended release 20 meq PO . AFTERNOON Qty: 90 RF: 0 magnesium oxide 400 mg (241.3 mg magnesium) tablet 400 mg PO TID Qty: 180 RF: 2 fluconazole 150 mg tablet 150 mg PO ONCE PRN (Reason: vaginitis) Qty: 6 RF: 2 metformin 500 mg tablet,ER melissa.retention 24 hr See Patient Comments PO .COMPLEX RF: 0 aspirin [Aspir-81] 81 mg Tablet,Delayed Release (Dr/Ec) 81 mg PO DAILY RF: 0 magnesium hydroxide [Milk of Magnesia] 400 mg/5 mL Suspension 30 ml PO HS PRN (Reason: Constipation) RF: 0 polyethylene glycol 3350 [Miralax] 17 gram/dose Powder 17 g PO DAILY PRNRF: 0 simvastatin 80 MG tablet 80 mg PO HS RF: 0 cholecalciferol (vitamin D3) 1,000 unit tablet 1,000 unit PO BID RF: 0 ibuprofen [IBU-200] 200 mg tablet 600 mg PO TID Qty: 90 RF: 0 Changed docusate sodium [Colace] 100 mg capsule 100 mg PO BID-TID Qty: 0 RF: 0 Discontinued hydrocodone-acetaminophen [[place]] 5-325 mg tablet 1 tab PO Q6H PRN (Reason: pain) Qty: 7 RF: 0 hydrocodone-acetaminophen 5-325 mg tablet 1 tab PO Q6H PRN (Reason: pain) Qty: 20 RF: 0 Discharge Instructions Activity:: Activity as Tolerated Equipment/Supplies:: No Equipment Needed Diet:: soft diet DS: Summary Time Spent with Patient Greater than 30 minutes Exam GI Palpation: soft and nontender DS: Data Vitals/I&O Vitals and I&O: Vital Signs Temperature 97.3 F L 12/10/18 07:52 Temperature Source Tympanic 12/10/18 07:52 Pulse 81 12/10/18 07:52 Pulse Rhythm Regular 12/10/18 07:50 Pulse 97 H 12/06/18 17:40 Respiratory Rate 19 12/10/18 07:52 Respiratory Effort 12/10/18 07:50 Respiratory Depth Normal 12/10/18 07:50 Respiratory Pattern Normal 12/10/18 07:50 Blood Pressure 145/69 H 12/10/18 07:52 Blood Pressure Position Sitting 12/06/18 16:48 Pulse Oximetry 97 12/10/18 07:52 Oxygen Delivery Method Room Air 12/10/18 07:52 Oxygen Flow Rate 0 12/10/18 07:52 Pain Level 7 12/10/18 02:50 Comment 12/08/18 03:40 Intake & Output 12/09/18 12/09/18 12/10/18 11:59 23:59 11:59 Intake Total 958.333 / 3328.333 2370.00 / 3328.333 1250 / 1250 Output Total 650 / 650 Balance 308.333 / 2678.333 2370.00 / 2678.333 1250 / 1250 Intake: IV 958.333 / 3078.333 2120.00 / 3078.333 1100 / 1100 Oral 250 / 250 150 / 150 Output: Gastric Drainage 350 / 350 Left Nare 350 / 350 Urine 300 / 300 Other: Urine Color Yellow Yellow Yellow Urine Appearance Clear Clear Clear Urine Odor None Normal None Comment pt voided in the toilet Stool Size Small Small Stool Characteristics Brown Brown Voiding Methods Bedside Commode Toilet Toilet Labs on day of discharge: Labs from last 24 hours 12/10/18 06:35 Plt Count 396 PFSH Medical History Impacted stool in intestine (Acute) Hx of hyperlipidemia (Acute) Diabetes (Chronic) Diverticulitis (Chronic) HTN (hypertension) (Chronic) Multiple sclerosis (Chronic) Surgical History Status post total knee replacement, right (Acute) History of repair of hiatal hernia (Acute) History of bowel resection (Acute) H/O hemorrhoidectomy (Chronic) History of cataract surgery (Chronic) Hx of arthroscopy of right knee (Chronic) Hx of hysterectomy (Chronic) Tenosynovitis, de Quervain (Resolved) Family History Mother Diabetes Stroke Father Cancer Heart disease Brother No problems noted. Social History Smoking/Tobacco Use Status: Former Tobacco Use Quit Date: 08/12/16 Alcohol Intake: never Drug use: Never Substance use type: does not use Caregiver/Support person: Yes Details: lives in [facility] Household members: none Housing: apartment Pets and animals: Yes Pets and animals: cat(s) Sexually active: No Do you think of yourself as: straight/heterosexual Current gender identity: female Frequency: does not exercise Marilee/Scientology: Roman Catholic Special marilee needs: No Do you feel safe in your relationship?: Yes Additional Social history: in a facility
[2018-12-10] MEDS: Normal Saline Flush 10 ML SYR IVP (10:21)
--- NOTE | 2018-12-10 15:06 | CMDISCH_ITS ---
- If Service Date Differs Date of service: 12/10/18 Time of Service: 15:01 LACE Index Scoring Tool - Questions: Length of Stay (in days): 4 - 6 Acuity (Admit via E.D.?): Yes Comorbidities: Diabetes w/o Complication E.D. Visits: 3 - Answers: Total Score: 11 Risk of Readmission: High Risk Care Management Discharge Reason for Hospitalization: SBO, fecal impaction status post RTKA Discharge Plan: [facility]hab stay prior to retuning home. Lorie will need to be kept on recomended bowel medications to prevent constipation. Lorie will follow up with primary care and orthopedics as directed. She will transport [facility] by [facility]. Patient/Family Education Needs: Discharge education, limitations and transition education to the patient. Services Needed at Discharge: Shelter Facility, Transportation
--- NOTE | 2018-12-10 16:28 | PT.INDS ---
Date of service: 12/10/18 Time of Service: 10:55 PT Notes Inpatient Physical Therapy Discharge Summary Date: 12/10/2018 Dates of Service: 12/08/2018 through 12/10/2018 Referring Doctor: Kelley Almeida MD PT Orders: PT CONSULT: S/P TKR Precautions: Fall. Standard. Patient Profile/Admitting Diagnosis: Patient is 73-year-old female who presented to the ED on 11/2718 with chief complaints of vomiting, constipation, and diffuse abdominal pain. She is also status post right knee arthroplasty on postoperative day 9. Patient was diagnosed with small bowel obstruction, fecal impaction, and was given 2 units of PRBCs on admission. PMHX: Past Medical History Multiple sclerosis Headaches Anxiety and depression Hyperlipidemia Kidney stones Former smoker Gastroesophageal reflux disorder Past Surgical History Hysterectomy Hiatal hernia Trigger finger release Bowel resection Social History/Home Situation: Per notes, Lorie resides alone in a handicap accessible apartment at [facility] in [place], [place]. She has home health registered nurse services four hours a day through [facility]. She reports no current support people in her life, but appears content with her apartment, setting and services. She uses a motorized W/C at baseline when leaving her apartment and utilizes a FWW in her apartment. She reports she is donating her brain to research because of her wish to help find a cure for MS. Current Functional Limitations: Need for assistance in performing transfers and ambulation tasks using FWW Equipment Owned/DME: Motorized wheelchair. FWW. Subjective: Patient reported nausea since waking up this morning. She is adamant about going to [facility] today. Objective: General Observation: Patient seen lying down in bed a little upset about the nausea she is having. IV, NGT, [address] off. in right UE. Ecchymosis on right knee and lower leg continuing to subside. Mental Status: Alert and oriented x3 Pain: Complains of mild pain on right knee with active assistive range of motion exercises and gait activity ROM: Right Upper Extremity: Shoulder Flexion WFL. Shoulder abduction WFL. Elbow flexion WFL. Wrist flexion WFL. Functional opening and closing of hand WFL. Left Upper Extremity: Shoulder Flexion WFL. Shoulder abduction WFL. Elbow flexion WFL. Wrist flexion WFL. Functional opening and closing of hand WFL. Right Lower Extremity: Hip flexion 0-110 degrees. Hip abduction 0-30. Knee flexion -5 to 110 degrees . Ankle dorsiflexion WFL. Ankle plantarflexion WFL. Left Lower Extremity: Hip flexion WFL. Hip abduction WFL. Knee flexion WFL. Ankle dorsiflexion WFL. Ankle plantarflexion WFL. Strength: Right Upper Extremity: Shoulder flexors 5/5. Shoulder abductors 5/5. Elbow flexors 5/5. Elbow extensors 5/5. Head Animal Keeper strong. Left Upper Extremity: Shoulder flexors 5/5. Shoulder abductors 5/5. Elbow flexors 5/5. Elbow extensors 5/5. Head Animal Keeper strong. Right Lower Extremity: Hip flexors 3-/5. Hip abductors 3-/5. Knee flexors 3-/5. Knee extensors 3-/5. Ankle dorsiflexors 4/5. Ankle plantarflexors 4/5. Left Lower Extremity:Hip flexors 4/5. Hip abductors 4/5. Knee flexors 4+/5. Knee extensors 4/5. Ankle dorsiflexors 4/5. Ankle plantarflexors 4/5. Bed Mobility/Transfers: Rolling minimal assist Supine to sit minimal assist Sit to supine minimal assist Sit to stand CGA Stand to sit CGA Bed to chair CGA Chair to bed CGA Gait: Patient tolerated level surface ambulation for 120 feet with FWW and CGA of this PT with mild complaints of nausea no headache nor chest pain. Patient did report mild pain on the right knee after gait activity which resolved with rest. Balance: Static Sitting: Good Dynamic Sitting: Good Static Standing: Fair Dynamic Standing: Fair Special Tests: Mobility Limitations Standardized Measure [facility] 6 clicks Basic Mobility Inpatient Short Form: Raw Score: 18 CMS Score: 47% deficit Assessment: Patient is a 73 year old female referred to physical therapy services with the diagnosis of small bowel obstruction, fecal impaction, with status post right knee total arthroplasty on postoperative day 6. Patient presents with clinical signs and symptoms consistent with current diagnoses that have resulted to mobility limitations, gait instability, generalized weakness, and impairment of motor control as demonstrated by the following impairment level findings: 1. Decreased strength to B LE major muscle groups 2. Impaired sitting/standing balance 3. Impaired activity tolerance 4. Limitation of joint range of motion in right knee Impairments are contributing to the following functional limitations: 1. Dependent bed mobility skills 2. Increased dependence with transfers 3. Inability to safely ambulate without assistive device and physical assistance 4. Increase completion time for mobility ADL performance 5. Increased fall risk 6. Inability to negotiate steps alone safely Goals: Goals X1 week 1. Supine-Sit independent NOT MET 2. Sit-Supine independent NOT MET 3. Sit-Stand independent NOT MET 4. Stand-Sit independent NOT MET 5. Bed-Chair supervision NOT MET 6. Chair-Bed supervision NOT MET 7. Independent gait on level surface with use of least restrictive device for at least 300 feet without report of pain nor dyspnea NOT MET 8. Independent stair negotiation while holding onto bilateral rails for at least 10 steps without report of pain nor dyspnea NOT MET 9. Independent with home exercise program NOT MET 10. Good static and dynamic standing balance/tolerance NOT MET DISCHARGE RECOMMENDATIONS: Discharge back to SNF for progression of mobility level, caregiver/patient/staff education and training, and equipment procurement. TREATMENT CODE/TIME: 75766 for 23 minutes, 91890 for 15 minutes, beginning at 10:06 AM Thank you for this referral. Carmen Lawrence, PT, DPT, CLT [facility]
--- NOTE | 2018-12-10 16:39 | INDS_ITS ---
Date of service: 12/10/18 Time of Service: 10:55 PT Notes Inpatient Physical Therapy Discharge Summary Date: 12/10/2018 Dates of Service: 12/08/2018 through 12/10/2018 Referring Doctor: Kelley Almeida MD PT Orders: PT CONSULT: S/P TKR Precautions: Fall. Standard. Patient Profile/Admitting Diagnosis: Patient is 73-year-old female who presented to the ED on 11/2718 with chief complaints of vomiting, constipation, and diffuse abdominal pain. She is also status post right knee arthroplasty on postoperative day 9. Patient was diagnosed with small bowel obstruction, fecal impaction, and was given 2 units of PRBCs on admission. PMHX: Past Medical History Multiple sclerosis Headaches Anxiety and depression Hyperlipidemia Kidney stones Former smoker Gastroesophageal reflux disorder Past Surgical History Hysterectomy Hiatal hernia Trigger finger release Bowel resection Social History/Home Situation: Per notes, Lorie resides alone in a handicap accessible apartment at [facility] in [place], [place]. She has county home demonstrator services four hours a day through [facility]. She reports no current support people in her life, but appears content with her apartment, setting and services. She uses a motorized W/C at baseline when leaving her apartment and utilizes a FWW in her apartment. She reports she is donating her brain to research because of her wish to help find a cure for MS. Current Functional Limitations: Need for assistance in performing transfers and ambulation tasks using FWW Equipment Owned/DME: Motorized wheelchair. FWW. Subjective: Patient reported nausea since waking up this morning. She is adamant about going [facility]. Objective: General Observation: Patient seen lying down in bed a little upset about the nausea she is having. IV, NGT, Greene cather ter off. in right UE. Ecchymosis on right knee and lower leg continuing to subside. Mental Status: Alert and oriented x3 Pain: Complains of mild pain on right knee with active assistive range of motion exercises and gait activity ROM: Right Upper Extremity: Shoulder Flexion WFL. Shoulder abduction WFL. Elbow flexion WFL. Wrist flexion WFL. Functional opening and closing of hand WFL. Left Upper Extremity: Shoulder Flexion WFL. Shoulder abduction WFL. Elbow flexion WFL. Wrist flexion WFL. Functional opening and closing of hand WFL. Right Lower Extremity: Hip flexion 0-110 degrees. Hip abduction 0-30. Knee flexion -5 to 110 degrees . Ankle dorsiflexion WFL. Ankle plantarflexion WFL. Left Lower Extremity: Hip flexion WFL. Hip abduction WFL. Knee flexion WFL. Ankle dorsiflexion WFL. Ankle plantarflexion WFL. Strength: Right Upper Extremity: Shoulder flexors 5/5. Shoulder abductors 5/5. Elbow flexors 5/5. Elbow extensors 5/5. Comb Capper strong. Left Upper Extremity: Shoulder flexors 5/5. Shoulder abductors 5/5. Elbow flexors 5/5. Elbow extensors 5/5. Comb Capper strong. Right Lower Extremity: Hip flexors 3-/5. Hip abductors 3-/5. Knee flexors 3-/5. Knee extensors 3-/5. Ankle dorsiflexors 4/5. Ankle plantarflexors 4/5. Left Lower Extremity:Hip flexors 4/5. Hip abductors 4/5. Knee flexors 4+/5. Knee extensors 4/5. Ankle dorsiflexors 4/5. Ankle plantarflexors 4/5. Bed Mobility/Transfers: Rolling minimal assist Supine to sit minimal assist Sit to supine minimal assist Sit to stand CGA Stand to sit CGA Bed to chair CGA Chair to bed CGA Gait: Patient tolerated level surface ambulation for 120 feet with FWW and CGA of this PT with mild complaints of nausea no headache nor chest pain. Patient did report mild pain on the right knee after gait activity which resolved with rest. Balance: Static Sitting: Good Dynamic Sitting: Good Static Standing: Fair Dynamic Standing: Fair Special Tests: Mobility Limitations Standardized Measure [facility] 6 clicks Basic Mobility Inpatient Short Form: Raw Score: 18 CMS Score: 47% deficit Assessment: Patient is a 73 year old female referred to physical therapy services with the diagnosis of small bowel obstruction, fecal impaction, with status post right knee total arthroplasty on postoperative day 6. Patient presents with clinical signs and symptoms consistent with current diagnoses that have resulted to mobility limitations, gait instability, generalized weakness, and impairment of motor control as demonstrated by the following impairment level findings: 1. Decreased strength to B LE major muscle groups 2. Impaired sitting/standing balance 3. Impaired activity tolerance 4. Limitation of joint range of motion in right knee Impairments are contributing to the following functional limitations: 1. Dependent bed mobility skills 2. Increased dependence with transfers 3. Inability to safely ambulate without assistive device and physical assistance 4. Increase completion time for mobility ADL performance 5. Increased fall risk 6. Inability to negotiate steps alone safely Goals: Goals X1 week 1. Supine-Sit independent NOT MET 2. Sit-Supine independent NOT MET 3. Sit-Stand independent NOT MET 4. Stand-Sit independent NOT MET 5. Bed-Chair supervision NOT MET 6. Chair-Bed supervision NOT MET 7. Independent gait on level surface with use of least restrictive device for at least 300 feet without report of pain nor dyspnea NOT MET 8. Independent stair negotiation while holding onto bilateral rails for at least 10 steps without report of pain nor dyspnea NOT MET 9. Independent with home exercise program NOT MET 10. Good static and dynamic standing balance/tolerance NOT MET DISCHARGE RECOMMENDATIONS: Discharge back to SNF for progression of mobility level, caregiver/patient/staff education and training, and equipment procurement. TREATMENT CODE/TIME: 13977 for 23 minutes, 41132 for 15 minutes, beginning at 10:06 AM Thank you for this referral. Carmen Lawrence, PT, DPT, CLT [facility]
== END 2018-12-10 13:11 | disposition skilled nursing facility (03) | DRG 390 ==
LOC: ER 21:06 → MS 21:24
PROVIDERS: Physician Assistant; Admitting Provider Surgery; Emergency Provider Emergency Medicine; PCP Family Medicine; Visit Provider Surgery
DX: K56.609 Unspecified intestinal obstruction, unspecified as to partial versus complete obstruction (principal); K56.41 Fecal impaction; R11.0 Nausea; G35 Multiple sclerosis; Z47.1 Aftercare following joint replacement surgery; Z96.651 Presence of right artificial knee joint; E11.9 Type 2 diabetes mellitus without complications; Z79.84 Long term (current) use of oral hypoglycemic drugs; I10 Essential (primary) hypertension; E78.5 Hyperlipidemia, unspecified; Z90.49 Acquired absence of other specified parts of digestive tract; K21.9 Gastro-esophageal reflux disease without esophagitis; D64.9 Anemia, unspecified; F41.8 Other specified anxiety disorders
CPT/HCPCS: 36415; 36430; 71045; 80048; 80053; 83690; 86850; 86900; 86901; 86920; 96361; 96374; 96375; 97110; 97162; 97530; 99223; 99232; 99233; 99239; 99285; NC; 74019; 74022; 74176; 82150; 83605; 83735; 85014; 85018; 85025; 85049; 99284; J0131; J0780; J1650; J1756; J1885; J2405; P9016

== ENCOUNTER → 2018-12-17 10:15 | Outpatient (BNVA) | payer MEDICARE, MEDICAID, SELFPAY | PROVIDERS: PCP Family Medicine; Referring Provider Family Medicine; Visit Provider Orthopaedic Surgery | DX: E11.9 Type 2 diabetes mellitus without complications (principal); I10 Essential (primary) hypertension; Z47.1 Aftercare following joint replacement surgery; Z96.651 Presence of right artificial knee joint; Z79.84 Long term (current) use of oral hypoglycemic drugs ==

== ENCOUNTER → 2019-01-14 10:18 | Outpatient (BNVA) | payer MEDICARE, MEDICAID, SELFPAY | PROVIDERS: PCP Family Medicine; Referring Provider Family Medicine; Visit Provider Orthopaedic Surgery | DX: Z47.89 Encounter for other orthopedic aftercare (principal); Z96.651 Presence of right artificial knee joint; E11.9 Type 2 diabetes mellitus without complications; I10 Essential (primary) hypertension ==

== ENCOUNTER 2019-02-02 09:25 | Outpatient (CLI) | payer MEDICARE, MEDICAID, SELFPAY ==
[2019-02-02 10:49] LABS: HCT 38.3 % (36.0-46.0); HGB 12.2 g/dL (12.0-15.5); Mean Corp. HGB Concentration 31.9 g/dL (32.0-36.0); Mean Corpuscular Hemoglobin 30.8 pg (27.0-33.0); Mean Corpuscular Volume 96.7 fL (80-95); Mean Platelet Volume 10.1 fL (8.0-11.0); Platelet Count 274 x1000/uL (130-400); RBC 3.96 m/cumm (4.00-5.20); RBC Distribution Width 15.5 % (11.7-14.6); White Blood Cell Count 6.77 k/cumm (4.4-10.8)
[2019-02-02 10:51] LABS: ALT 23 U/L (12-78); AST 13 U/L (15-37); Albumin 3.6 g/dL (3.4-5.0); Alkaline Phosphatase 111 U/L (46-116); Anion Gap 12.6 mmol/L (3-11); BUN 15 mg/dL (7-18); Bilirubin, Total 0.2 mg/dL (0.2-1.0); CO2 25.4 mmol/L (21.0-32.0); CREATININE 1.01 mg/dL (0.55-1.02); Calcium 9.3 mg/dL (8.5-10.1); Chloride 103 mmol/L (98-107); Estimated GFR 53.73 (mL/min/1.73m2); Glucose 114 mg/dL (70-100); Magnesium 1.4 mg/dL (1.8-2.4); Potassium 4.3 mmol/L (3.5-5.1); Sodium 141 mmol/L (136-145); Total Protein 6.9 g/dL (6.4-8.2)
[2019-02-02 11:46] LABS: Vitamin D 25 Total 36.3 ng/ml (30-100)
== END 2019-02-02 09:45 ==
PROVIDERS: PCP Family Medicine; Visit Provider Family Medicine
DX: R19.7 Diarrhea, unspecified (principal); E83.42 Hypomagnesemia; Z86.2 Personal history of diseases of the blood and blood-forming organs and certain disorders involving the immune mechanism; E11.9 Type 2 diabetes mellitus without complications; E55.9 Vitamin D deficiency, unspecified
CPT/HCPCS: 36415; 80053; 82306; 85027; 83036; 83735

== ENCOUNTER → 2019-03-04 09:46 | Outpatient (BNVA) | payer MEDICARE, MEDICAID, SELFPAY | PROVIDERS: PCP Family Medicine; Visit Provider Psychiatry & Neurology Neurology | DX: G35 Multiple sclerosis (principal); G43.009 Migraine without aura, not intractable, without status migrainosus; I10 Essential (primary) hypertension; E11.9 Type 2 diabetes mellitus without complications | CPT/HCPCS: 99213 ==

== ENCOUNTER → 2019-03-04 10:34 | Outpatient (BNVA) | payer MEDICARE, MEDICAID, SELFPAY | PROVIDERS: PCP Family Medicine; Referring Provider Family Medicine; Visit Provider Orthopaedic Surgery | DX: Z47.1 Aftercare following joint replacement surgery (principal); Z96.651 Presence of right artificial knee joint; G35 Multiple sclerosis | CPT/HCPCS: 99213 ==

== ENCOUNTER 2019-03-12 18:03 | Outpatient (REF) | payer MEDICARE, MEDICAID, SELFPAY ==
[2019-03-12 18:29] LABS: Bilirubin Negative (Negative); Blood Negative (Negative); Clarity Clear (Clear); Glucose Negative (Negative); Ketones Trace mg/dL (Negative); Leukocyte Esterase Small (Negative); Nitrite Negative (Negative); Specific Gravity 1.025 (1.005-1.025); Urobilinogen 0.2 EU/dL (Up TO 0.2)
[2019-03-12 18:57] LABS: Bacteria Moderate HPF (Negative); C & S Indicated? Yes; Casts Negative LPF (Negative); Epithelial Cells Few HPF (Negative); Mucus Moderate (Negative); RBC Negative (0-2)
[2019-03-12 18:58] LABS: Crystals Rare Calcium Oxalate HPF (Negative); Other Cells Negative (Negative)
== END 2019-03-12 18:23 ==
LOC: LBN 18:03
PROVIDERS: PCP Family Medicine; Visit Provider Family Medicine
DX: N39.0 Urinary tract infection, site not specified (principal)
CPT/HCPCS: 81003; 81015; 87086

== ENCOUNTER 2019-06-03 01:15 | Outpatient (CLI) | payer MEDICARE, MEDICAID, SELFPAY ==
[2019-06-03 11:22] LABS: HCT 39.9 % (36.0-46.0); HGB 12.6 g/dL (12.0-15.5)
[2019-06-03 11:40] LABS: Hemoglobin A1C 6.9 % (4.5-6.2)
[2019-06-03 13:08] LABS: COMMENT (LAB VIEW ONLY) 350.13 mg/dL; Microalb ug/mg Crea 5.8 ug/mg Cr
[2019-06-03 13:11] LABS: ALT 35 U/L (14-59); AST 21 U/L (15-37); Albumin 3.8 g/dL (3.4-5.0); Alkaline Phosphatase 105 U/L (46-116); Anion Gap 15.6 mmol/L (3-11); BUN 17 mg/dL (7-18); Bilirubin, Total 0.3 mg/dL (0.2-1.0); CO2 23.4 mmol/L (21.0-32.0); CREATININE 1.16 mg/dL (0.55-1.02); Calcium 9.3 mg/dL (8.5-10.1); Chloride 103 mmol/L (98-107); Estimated GFR 45.79 (mL/min/1.73m2); Ferritin 495 ng/mL (8-388); Glucose 144 mg/dL (70-100); Potassium 4.2 mmol/L (3.5-5.1); Sodium 142 mmol/L (136-145); Total Protein 7.1 g/dL (6.4-8.2)
[2019-06-03 13:54] LABS: Iron 72 ug/dL (50-175); Total Iron Binding Capacity 290 ug/dL (250-450); Transferrin Sat 25 % (15-50)
== END 2019-06-03 01:35 ==
PROVIDERS: PCP Family Medicine; Visit Provider Family Medicine
DX: E11.9 Type 2 diabetes mellitus without complications (principal); E61.1 Iron deficiency
CPT/HCPCS: 36415; 80053; 82043; 82570; 82728; 83036; 83540; 83550; 85014; 85018

== ENCOUNTER 2019-06-05 01:07 | Outpatient (CLI) | payer MEDICARE, MEDICAID, SELFPAY ==
--- NOTE | 2019-06-05 13:08 | DI.RAD_ITS ---
EXAM: XR KNEE RT 3V AP,LAT,NISSA CLINICAL HISTORY: pain right knee/status post replacement,M25.561 TECHNIQUE: COMPARISON: XR knee RT 2V AP,lat from 12/01/2018 FINDINGS: Four views were obtained and show a total knee joint replacement position. The components appear wel l seated. No other significant bony abnormality seen. IMPRESSION:
== END 2019-06-05 01:27 ==
PROVIDERS: PCP Family Medicine; Visit Provider Family Medicine
DX: M25.561 Pain in right knee (principal); Z96.651 Presence of right artificial knee joint
CPT/HCPCS: 73562

== ENCOUNTER → 2019-09-02 09:55 | Outpatient (BNVA) | payer MEDICARE, MEDICAID, SELFPAY | PROVIDERS: PCP Family Medicine; Referring Provider Family Medicine; Visit Provider Psychiatry & Neurology Neurology | DX: G35 Multiple sclerosis; G43.009 Migraine without aura, not intractable, without status migrainosus; R41.3 Other amnesia | CPT/HCPCS: 99214 ==

== ENCOUNTER 2019-09-11 00:10 | Outpatient (CLI) | payer MEDICARE, MEDICAID, SELFPAY ==
[2019-09-11 14:24] LABS: Hemoglobin A1C 7.6 % (3.8-5.6)
[2019-09-11 14:55] LABS: ALT 24 U/L (14-59); AST 17 U/L (15-37); Albumin 3.6 g/dL (3.4-5.0); Alkaline Phosphatase 99 U/L (46-116); Anion Gap 9.5 mmol/L (3-11); BUN 11 mg/dL (7-18); Bilirubin, Total 0.2 mg/dL (0.2-1.0); CO2 28.5 mmol/L (21.0-32.0); CREATININE 1.03 mg/dL (0.55-1.02); Calcium 9.2 mg/dL (8.5-10.1); Chloride 103 mmol/L (98-107); Estimated GFR 52.38 (mL/min/1.73m2); Glucose 108 mg/dL (74-106); Magnesium 1.4 mg/dL (1.8-2.4); Potassium 3.8 mmol/L (3.5-5.1); Sodium 141 mmol/L (136-145); Total Protein 6.5 g/dL (6.4-8.2)
[2019-09-11 15:03] LABS: TSH (W/Ref FT4) 1.88 uIU/mL (0.36-3.74)
== END 2019-09-11 00:30 ==
PROVIDERS: PCP Family Medicine; Visit Provider Psychiatry & Neurology Neurology
DX: E11.9 Type 2 diabetes mellitus without complications (principal); E83.42 Hypomagnesemia; M54.5 Low back pain; M53.3 Sacrococcygeal disorders, not elsewhere classified; M47.816 Spondylosis without myelopathy or radiculopathy, lumbar region
CPT/HCPCS: 36415; 80053; 72110; 83036; 83735; 84443

== ENCOUNTER 2019-09-11 01:53 | Outpatient (CLI) | payer MEDICARE, MEDICAID, SELFPAY ==
--- NOTE | 2019-09-11 13:31 | DI.RAD_ITS ---
EXAM: XR LUMBAR SPINE COMPLETE CLINICAL HISTORY: pain lower back/increasing/no trauma/no falls m54.5 TECHNIQUE: COMPARISON: LUMBAR SPINE COMPLETE from 12/10/2012 FINDINGS: Five views were obtained. There are moderate degenerative changes of the SI joints. The interverteb ral disc spaces are fairly well maintained. Moderate hypertrophic degenerative changes noted involvi ng facet joints and vertebral endplates throughout the lumbar region. No evidence of spondylolysis o r spondylolisthesis. No compression fracture seen. IMPRESSION: degenerative changes of the lumbar spine, moderate.
== END 2019-09-11 02:13 ==
PROVIDERS: PCP Family Medicine; Visit Provider Family Medicine
DX: M54.5 Low back pain (principal); M53.3 Sacrococcygeal disorders, not elsewhere classified; M47.816 Spondylosis without myelopathy or radiculopathy, lumbar region
CPT/HCPCS: 72110

== ENCOUNTER → 2019-12-02 07:45 | Outpatient (BNVA) | payer MEDICARE, MEDICAID, SELFPAY | PROVIDERS: PCP Family Medicine; Referring Provider Family Medicine; Visit Provider Psychiatry & Neurology Neurology | DX: G43.009 Migraine without aura, not intractable, without status migrainosus (principal); M54.5 Low back pain; G35 Multiple sclerosis; R41.3 Other amnesia; G89.29 Other chronic pain; I10 Essential (primary) hypertension | CPT/HCPCS: 99214; 99443 ==

== ENCOUNTER → 2020-01-05 08:16 | Outpatient (BNVA) | payer MEDICARE, MEDICAID, SELFPAY | PROVIDERS: PCP Family Medicine; Referring Provider Family Medicine; Visit Provider Psychiatry & Neurology Neurology | DX: G35 Multiple sclerosis (principal); G43.009 Migraine without aura, not intractable, without status migrainosus; R41.3 Other amnesia; M54.5 Low back pain; G89.29 Other chronic pain | CPT/HCPCS: 99213; 99442 ==

== ENCOUNTER → 2020-03-09 09:41 | Outpatient (BNVA) | payer MEDICARE, MEDICAID, SELFPAY | PROVIDERS: PCP Family Medicine; Referring Provider Family Medicine; Visit Provider Psychiatry & Neurology Neurology | DX: G35 Multiple sclerosis (principal); G43.009 Migraine without aura, not intractable, without status migrainosus; R41.3 Other amnesia; M54.5 Low back pain; G89.29 Other chronic pain; F41.9 Anxiety disorder, unspecified; I10 Essential (primary) hypertension; E11.9 Type 2 diabetes mellitus without complications | CPT/HCPCS: 99214 ==

== ENCOUNTER → 2020-04-20 13:39 | Outpatient (BNVA) | payer MEDICARE, MEDICAID, SELFPAY | PROVIDERS: PCP Family Medicine; Referring Provider Family Medicine; Visit Provider Psychiatry & Neurology Neurology | DX: G35 Multiple sclerosis (principal); G43.009 Migraine without aura, not intractable, without status migrainosus; R41.3 Other amnesia; F41.9 Anxiety disorder, unspecified; M54.5 Low back pain; G89.29 Other chronic pain; E11.9 Type 2 diabetes mellitus without complications; Z79.84 Long term (current) use of oral hypoglycemic drugs; R35.0 Frequency of micturition | CPT/HCPCS: 99214 ==

== ENCOUNTER → 2020-06-22 13:09 | Outpatient (BNVA) | payer MEDICARE, MEDICAID, SELFPAY | PROVIDERS: PCP Family Medicine; Referring Provider Family Medicine; Visit Provider Psychiatry & Neurology Neurology | DX: G35 Multiple sclerosis (principal); G43.009 Migraine without aura, not intractable, without status migrainosus; R41.3 Other amnesia; F41.9 Anxiety disorder, unspecified; I10 Essential (primary) hypertension | CPT/HCPCS: 99213; 99442 ==

== ENCOUNTER → 2020-08-31 13:18 | Outpatient (BNVA) | payer MEDICARE, MEDICAID, SELFPAY | PROVIDERS: PCP Family Medicine; Referring Provider Family Medicine; Visit Provider Psychiatry & Neurology Neurology | DX: G35 Multiple sclerosis (principal); G43.009 Migraine without aura, not intractable, without status migrainosus; R41.3 Other amnesia; F41.9 Anxiety disorder, unspecified; R19.7 Diarrhea, unspecified; H53.2 Diplopia | CPT/HCPCS: 99214 ==

== ENCOUNTER 2021-04-07 00:32 | Outpatient (CLI) | payer MEDICARE, MEDICAID, SELFPAY ==
[2021-04-07 11:22] LABS: ALT 18 U/L (14-59); AST 13 U/L (15-37); Albumin 3.4 g/dL (3.4-5.0); Alkaline Phosphatase 94 U/L (46-116); Anion Gap 12.6 mmol/L (3-11); BUN 12 mg/dL (7-18); Bilirubin, Total 0.2 mg/dL (0.2-1.0); CO2 25.4 mmol/L (21.0-32.0); Calcium 9.2 mg/dL (8.5-10.1); Chloride 105 mmol/L (98-107); Estimated GFR 54.05 (mL/min/1.73m2); Glucose 127 mg/dL (74-106); Potassium 3.9 mmol/L (3.5-5.1); Sodium 143 mmol/L (136-145); Total Protein 6.3 g/dL (6.4-8.2)
== END 2021-04-07 00:33 | disposition home or self-care (01) ==
LOC: LOS 00:33
PROVIDERS: PCP Family Medicine; Visit Provider Family Medicine
DX: G35 Multiple sclerosis (principal)
CPT/HCPCS: 36415; 80053

== ENCOUNTER 2021-08-30 18:37 | Outpatient (REF) | payer MEDICARE, MEDICAID, SELFPAY ==
[2021-08-30 20:11] LABS: COMMENT (LAB VIEW ONLY) 158.91 mg/dL; Microalb ug/mg Crea 6.7 ug/mg Cr
== END 2021-08-30 18:38 | disposition home or self-care (01) ==
LOC: NCHCN 18:37
PROVIDERS: PCP Family Medicine; Visit Provider Family Medicine
DX: E11.9 Type 2 diabetes mellitus without complications (principal)
CPT/HCPCS: 82043; 82570

== ENCOUNTER → 2022-02-19 01:52 | Outpatient (CLI) | payer MEDICARE, MEDICAID, SELFPAY ==
--- NOTE | 2022-02-19 07:15 | DI.RAD_ITS ---
Exam(s) XR HAND LT COMPLETE EXAM: XR HAND LT COMPLETE CLINICAL HISTORY: left hand CMC thumb pain,oa,m18.12. TECHNIQUE: 2D digital imaging was performed. COMPARISON: No exams were available for comparison FINDINGS: 3 views No evidence of acute fracture nor dislocation. Moderate degenerative changes are noted at the 1st ca rpometacarpal joint. This is the articulation between the thumb metacarpal and trapezium of the dist al carpal row. In addition to degenerative changes there is also para-articular calcific density andreas suring 9 by 4 millimeters, seen off the medial aspect of the joint. The meta carpophalangeal joint a nd interphalangeal joints of the thumb appear unremarkable. IMPRESSION: No fractures nor erosions. No osseous lesions. Degenerative changes at the 1st carpometacarpal join t. DATA REPOSITORY: RADIATION DOSE DELIVERED:
--- NOTE | 2022-02-19 07:15 | DI.RAD_ITS ---
Exam(s) XR CHEST 2V PA LATERAL EXAM: XR CHEST 2V PA LATERAL CLINICAL HISTORY: chronic cough,oa,r05.3. TECHNIQUE: 2D digital imaging was performed. COMPARISON: CR XR ABD FLAT UPRIGHT PA CHEST from 12/09/2018 FINDINGS: 2 views: Heart size is normal. The mediastinum is not widened. Right lung remains clear. There is, however, platelike atelectasis in the lingular segment of the le ft lung. No pleural effusions. No pulmonary edema. Calcified granuloma in the left upper lobe is unchanged. IMPRESSION: There is subsegmental platelike atelectasis in the superior lingular segment of the left lung.No pleu ral effusion. DATA REPOSITORY: RADIATION DOSE DELIVERED:
== END ==
PROVIDERS: PCP Family Medicine; Visit Provider Family Medicine
DX: M79.642 Pain in left hand; M18.12 Unilateral primary osteoarthritis of first carpometacarpal joint, left hand; R05.3 Chronic cough; J98.11 Atelectasis; M79.645 Pain in left finger(s)
CPT/HCPCS: 71046; 73130

== ENCOUNTER → 2022-03-01 00:34 | Outpatient (CLI) | payer MEDICARE, MEDICAID, SELFPAY ==
--- OUTSIDE RECORDS SUMMARY | 2022-03-01 00:41 | XMS_ITS | Encounter Summary ---
:1945 Author Organization [facility] [address] Care Team Providers Name Role Phone Gris Bates MD Primary Care Provider Encounter Details Date Type Department Care Team Description 05/20/2012 Clinical Support [facility] [place] [address] Social History Tobacco Use Types Packs/Day Years Used Date Current Every Day Smoker Cigarettes 0.7 Smokeless Tobacco: Never Used Alcohol Use Standard Drinks/Week Comments No 0 (1 standard drink = 0.6 oz pure alcoho l) Sex Assigned at Date Recorded Not on file documented as of this encounter Plan of Treatment Not on filedocumented as of this encounter Visit Diagnoses Not on filedocumented in this encounter Care Teams Soils Analyst Relationship Specialty Start Date End Date Gris Bates MD PCP - General 01/17/[address] [place], [place] [id number] documented as of this encounter
--- OUTSIDE RECORDS SUMMARY | 2022-03-01 00:41 | XMS_ITS | Encounter Summary ---
:1945 Author Organization [place] [address] Care Team Providers Name Role Phone Gris Bates MD Primary Care Provider Encounter Details Date Type Department Care Team Description 05/20/2012 Hospital Encounter MRI at [facility] [place] [address] Social History Tobacco Use Types Packs/Day Years Used Date Current Every Day Smoker Cigarettes 0.7 Smokeless Tobacco: Never Used Alcohol Use Standard Drinks/Week Comments No 0 (1 standard drink = 0.6 oz pure alcoho l) Sex Assigned at Date Recorded Not on file documented as of this encounter Medications at Time of Discharge Medication Sig Dispensed Refills Start Date End Date tamsulosin (FLOMAX) 0.4 Take 0.4 mg by 0 mg capsule mouth daily. citalopram (CELEXA) 20 Take 20 mg by mouth 0 mg tablet daily. traZODone (DESYREL) 100 Take 100 mg by 0 mg tablet mouth nightly. ondansetron (ZOFRAN) 4 Take 4 mg by mouth 0 mg tablet every 8 hours as needed. fluconazole (DIFLUCAN) Take 150 mg by 0 150 mg tablet mouth once. Cholecalciferol, Vitamin Take 1,000 Units by 100 capsule 3 0 03/12/2012 D3, (VITAMIN D) 1,000 mouth 2 times daily unit Cap (with meals). Magnesium Gluconate Take 500 mg by 0 (MAGONATE) 500 mg tablet mouth daily. simvastatin (ZOCOR) 20 Take 20 mg by mouth 0 mg tablet nightly. Cyanocobalamin 100 Inject 1,000 mcg as 0 mcg/mL Soln directed every 30 days. interferon beta-1a Inject 30 mcg into 0 (AVONEX) 30 mcg the muscle every 7 injection days. Estradiol (VAGIFEM) 10 Place 10 mcg 0 mcg vaginal tablet vaginally 3 times daily as needed. acetaminophen (TYLENOL) Take by mouth every 0 500 mg tablet 4 hours as needed. potassium chloride Take 2 tablets by 120 tablet 5 03/12/2012 10/20/2012 (K-DUR) 10 mEq tablet mouth 2 times daily (with meals). esomeprazole (NEXIUM) 20 Take 20 mg by mouth 0 06/02/2012 mg capsule daily. amitriptyline (ELAVIL) Take 1 tablet by 30 tablet 3 012 06/02/2012 10 mg tablet mouth nightly. oxybutynin (DITROPAN) 5 Take 5 mg by mouth 0 06/02/2012 mg tablet daily. venlafaxine (EFFEXOR-XR) Take 37.5 mg by 0 06/02/2012 37.5 mg 24 hr capsule mouth daily. documented as of this encounter Miscellaneous Notes Miscellaneous - Provider, Scanning - 05/26/2012 9:50 AM EDT documented in this encounter Plan of Treatment Not on filedocumented as of this encounter Procedures Procedure Name Priority Date/Time Associated Diagnosis Comme nts MRI ORBIT WWO Routine 05/20/2012 4:07 PM Results for this CONTRAST EDT procedure are i n the results section. documented in this encounter Results MRI ORBIT WITH/WO CONTRAST (05/20/2012 4:07 PM EDT) Anatomical Region Laterality Modality Head Magnetic Resonance Specimen (Source) Anatomical Collection Method Collection Time Re ceived Time Location / / Volume Laterality 05/20/2012 4:07 PM EDT Narrative 05/28/2012 4:04 PM EDT Examination MR Brain and Orbit W WO [facility] Clinical History F/U for multiple sclerosis, left proptos is Comparison None Technique MRI of the brain and orbits before and a fter the intravenous administration of 15 cc of Magnevist gadolinium. ?? Findings Numerous foci of T2 prolongation are see n in the periventricular and subcortical white matter, many perpendic ular to the callosal margin, consistent with the given history of Multiple Scler osis. ??No gadolinium enhancing lesion identified. ??Lesions involving the jeremy us callosum, which is otherwise normal in caliber. ??The ventricles are normal in size and midline in position. T2 prolongation in the bel. Mild diffuse c erebral volume loss. The optic nerves and optic chiasm are no rmal in caliber, without obvious abnormal signal intensity or enhancement . ??The globes and lenses appear intact. No retro-orbital mass identified. The or bits are unremarkable. Prominent superior and inferior ophthalm ic veins, of unknown clinical significance Impression Findings consistent with the history of multiple sclerosis. No gadolinium enhancing lesion identified. Procedure Note Jessica Haque MD - 05/28/2012Formattin g of this note might be different from the original. Examination MR Brain and Orbit W WO Bryan Clinical History F/U for multiple sclerosis, left proptos is Comparison None Technique MRI of the brain and orbits before and a fter the intravenous administration of 15 cc of Magnevist gadolinium. Findings Numerous foci of T2 prolongation are see n in the periventricular and subcortical white matter, many perpendic ular to the callosal margin, consistent with the given history of Multiple Scler osis. No gadolinium enhancing lesion identified. Lesions involving the corpus callosum, which is otherwise normal in caliber. The ventricles are normal in size and midline in position. T2 prolongation in the bel. Mild diffuse c erebral volume loss. The optic nerves and optic chiasm are no rmal in caliber, without obvious abnormal signal intensity or enhancement . The globes and lenses appear intact. No retro-orbital mass identified. The or bits are unremarkable. Prominent superior and inferior ophthalm ic veins, of unknown clinical significance Impression Findings consistent with the history of multiple sclerosis. No gadolinium enhancing lesion identified. Teo Ovalles MD IMG MRI ORDERABLES documented in this encounter Visit Diagnoses Not on filedocumented in this encounter Care Teams Used Car Sales Supervisor Relationship Specialty Start Date End Date Gris Bates MD PCP - General 01/17/[address] [place] [address] documented as of this encounter
--- OUTSIDE RECORDS SUMMARY | 2022-03-01 00:41 | XMS_ITS | Encounter Summary ---
:1945 Author Organization [place] [address] Care Team Providers Name Role Phone Gris Bates MD Primary Care Provider Reason for Visit Reason Comments Medication Refill Encounter Details Date Type Department Care Team Description 01/28/2013 [place] [facility] [place] APRN [facility] [place] [address] GASTROENTEROLOGY DEPT. [phone] [place], [place] [address] (Wo rk) Social History Tobacco Use Types Packs/Day Years [...] on filedocumented in this encounter Care Teams Motor Vehicles Supervisor Relationship Specialty Start Date End Date Gris Bates MD PCP - General 01/17/[address] [place], [place] [id number] documented as of this encounter
--- OUTSIDE RECORDS SUMMARY | 2022-03-01 00:41 | XMS_ITS | Encounter Summary ---
:1945 Author Organization [facility] [place] [address] Care Team Providers Name Role Phone Gris Bates MD Primary Care Provider Reason for Visit Reason Comments Eye Problem MS related eye issues. Diplopia when looks to the right Encounter Details Date Type Department Care Team Description 05/20/2012 Office Visit Ophthalmology at [facility] C Gial Hudson, Multiple sclerosis; [facility] [place] [address] [place] [address] OPH[address]ALM[address] DEPT. [place] [id number] Social History Tobacco Use Types Packs/Day Years Used Date Current Every Day Smoker Cigarettes 0.7 Smokeless Tobacco: Never Used Alcohol Use Standard Drinks/Week Comments No 0 (1 standard drink = 0.6 oz pure alcoho l) Sex Assigned at Date Recorded Not on file documented as of this encounter Progress Notes Gail Hudson MD - 05/20/2012 2:13 PM EDT 66 yo woman with long-standing MS who reports diplopia. She is doing well with Fresnel prisms. I found only a small deviation today in eccentric gaze only. For this reason, I would not recommend strabismus surgery at this time. Her anterior chamber angles are on the narrow side and need following and she has early cataracts not yet effecting her vision. She was hoping to muscle surgery to resolve herpain and her diplopia. Recommend continued fine tuning of her Fresnel if that is helping her. Follow up prn and as scheduled by her primary eye care provider. documented in this encounter Nursing Notes 05/20/2012 12:15 PM EDT >> MD Katy PEREA May 20, 2012 1:45 PM 66 yo woman with MS who reports diplopia looking to the right for over one year. Patient was diagnosed with MS in her 40s, currently taking Avonex for years. She reports pain and numbness around her right eye for many months. Sometimes she feels the numbness on her left side. Patient is scheduled for an MRI today. She fitted with a Fresnel prism a few months ago and she does not have diplopia with them on. She is mostly in her bed due to her MS and has a radio time sales supervisor caregiver. >> APOLINAR MATOS May 20, 2012 1:02 PM Vertical binocular Diplopia when she looks to the right x 1 year or more. Has fresnl prism on right spectacle lens from [facility] for the past 4 months, pt states fresnl does eliminate the diplopia. Headaches and numbness on right side of her face for a long time. >> APOLINAR LLANOS May 20, 2012 12:47 PM Pt with diagnosis of MS, age 40s. States that she has short term memory issues. VISION LOSS? Unsure CURRENT/EYE? No PAST/EYE? unsure ONSET DATE (APPROX OR EXACT) ? unsure SUDDEN/GRADUAL? unsure RESOLVED OR ON-GOING? Ongoing diplopia PRIOR EPISODE(S)? PAIN? IN EYE,BEHIND EYES, WITH EYE MOVEMENT? Yes, CEDEÑO around OD,increase with EOM, OD MS DIAGNOSED? Age 40s MRI/IMAGING/LP? a long time ago OPTIC NEURITIS DIAGNOSED? No PAST TREATMENT? Yes, not sure what MS MEDICATION(S) PAST OR PRESENT? Avonex injections currently documented in this encounter Plan of Treatment Not on filedocumented as of this encounter Visit Diagnoses Diagnosis Multiple sclerosis Diplopia documented in this encounter Care Teams Hvac Instructor Relationship Specialty Start Date End Date Gris Bates MD PCP - General 01/17/[address] [place] [address] documented as of this encounter
--- OUTSIDE RECORDS SUMMARY | 2022-03-01 00:41 | XMS_ITS | Encounter Summary ---
:1945 [place] [address] Care Team Providers Name Role Phone Gris Bates MD Primary Care Provider Reason for Visit Reason Comments Diarrhea Encounter Details Date Type Department Care Team Description 06/02/2012 Office Visit Gastroenterology at [facility] Augusto Rodriguez IBS (irritable bowel [facility] D rive ORDER BUILDER syndrome) ([place] [address] [facility] MEDICAL Dx) [phone] [facility] [place] [address] Social History Tobacco Use Types Packs/Day Years Used Date Current Every Day Smoker Cigarettes 0.7 Smokeless Tobacco: Never Used Alcohol Use Standard Drinks/Week Comments No 0 (1 standard drink = 0.6 oz pure alcoho l) Sex Assigned at Date Recorded Not on file documented as of this encounter Last Filed Vital Signs Vital Sign Reading Time Taken Comments Blood Pressure 120/54 06/02/2012 11:58 AM EDT Pulse 82 06/02/2012 11:58 AM EDT Temperature - - Respiratory Rate 20 06/02/2012 11:58 AM EDT Oxygen Saturation - - Inhaled Oxygen Concentration - - Weight 68.8 kg (151 lb 10.8 oz) 06/02/2012 11:58 AM EDT Height 162.6 cm (5' 4) 06/02/2012 11:58 AM EDT Body Mass Index 26.04 06/02/2012 11:58 AM EDT documented in this encounter Progress Notes Augusto Rodriguez RN - 06/02/2012 12:49 PM EDT Section of Gastroenterology and Hepatology [address] [place] [address] .Lorie Buchanan Julissa : 1945 Patient is here for further evaluation of gastrointestinal symptoms at the request of Gris Bates MD. HPI: Long hx of abdominal pain and diarrhea, many years. Eating is a trigger. When she eats, she feels like food sits in her stomach. Then will experience cramping, urgency and will go to the bathroom.Her stools are loose. She becomes fatigued and will have to rest for a period of time. Occasional bright red bleeding, hx of hemorrhoids. Colonoscopy 2010, [facility]. Caregiver is with pt, believes the colowas normal. Pt has a hx of small and large bowel obstructions. Has had surgery, 2009. It is not clear as to what was removed and the cause of the obstructions. No notes available. Has had incontinent episodes. Notes quite a bit of flatulence. Does not awake during the night with sx. Pt notes she had an infection inside her stool and was treated. No stool studies available. Hx of reflux. Presently taking nexium 40mg qd. She continues with daily regurgitation. Intermittent brief chest pain, does not radiate, very localized. Denies heartburn, dysphagia, odynophagia, vomiting, ent concerns. Nausea post- prandially. Post-prandial bloat and distention. Early satiety. No chronic nsaids. Weight stable. No food allergies. Diet: grazes, picks. Junk food. [place] dogs. At least three 16oz Pepsi's per day. Eats late at night, right before bed. History Social History ??? Marital Status: Spouse Name: N/A Number of Children: N/A ??? Years of Education: N/A Occupational History ??? Not on file. Social History Main Topics ??? Smoking status: Current Everyday Smoker -- 0.7 packs/day Types: Cigarettes ??? Smokeless tobacco: Never Used ??? Alcohol Use: No ??? Drug Use: No ??? Sexually Active: deferred Other Topics Concern ??? Not on file Social History Narrative ??? No narrative on file Medical History: ibs, gerd, high cholesterol, cad, anxiety/depression, urinary incontinence, MS Surgical History: radical hysterectomy, small/large bowel obstruction repair Family History: no gi etiologies Allergies Allergen Reactions ??? Penicillins rash ??? Sulfa(sulfonamide Antibiotics) rash ??? Povidone-iodine Rash ??? Miconazole rash Current outpatient prescriptions:amitriptyline (ELAVIL) 25 mg tablet, Take 25 mg by mouth nightly., Disp: , Rfl: ; docusate sodium (COLACE) 100 mg capsule, Take 100 mg by mouth 2 times daily., Disp: , Rfl: ; tamsulosin (FLOMAX) 0.4 mg capsule, Take 0.4 mg by mouth daily., Disp: , Rfl: ; citalopram (CELEXA) 20 mg tablet, Take 20 mg by mouth daily., Disp: , Rfl: ; traZODone (DESYREL) 100 mg tablet, Take 100 mg by mouth nightly., Disp: , Rfl: ondansetron (ZOFRAN) 4 mg tablet, Take 4 mg by mouth every 8 hours as needed., Disp: , Rfl: ; fluconazole (DIFLUCAN) 150 mg tablet, Take 150 mg by mouth once., Disp: , Rfl: ; potassium chloride (K-DUR)10 mEq tablet, Take 2 tablets by mouth 2 times daily (with meals)., Disp: 120 tablet, Rfl: 5; Cholecalciferol, Vitamin D3, (VITAMIN D) 1,000 unit Cap, Take 1,000 Units by mouth 2 times daily (with meals)., Disp: 100 capsule, Rfl: 3 esomeprazole (NEXIUM) 20 mg capsule, Take 20 mg by mouth daily., Disp: , Rfl: ; Magnesium Gluconate (MAGONATE) 500 mg tablet, Take 500 mg by mouth daily., Disp: , Rfl: ; simvastatin (ZOCOR) 20 mg tablet, Take 20 mg by mouth nightly., Disp: , Rfl: ; Cyanocobalamin 100 mcg/mL Soln, Inject 1,000 mcg as directed every 30 days., Disp: , Rfl: ; interferon beta-1a (AVONEX) 30 mcg injection, Inject 30 mcg into the muscle every 7 days., Disp: , Rfl: Estradiol (VAGIFEM) 10 mcg vaginal tablet, Place 10 mcg vaginally 3 times daily as needed., Disp: , Rfl: ; acetaminophen (TYLENOL) 500 mg tablet, Take by mouth every 4 hours as needed., Disp: , Rfl: ; DISCONTD: oxybutynin (DITROPAN) 5 mg tablet, Take 5 mg by mouth daily., Disp: , Rfl: ; DISCONTD: venlafaxine (EFFEXOR-XR) 37.5 mg 24 hr capsule, Take 37.5 mg by mouth daily., Disp: , Rfl: Review of Systems - Negative except General: Cardiac: Resp: GI: see above : urinary incontinence, on flomax MS: Neuro: MS Skin: Psyche:anxiety/depression, presently tapering ssri, recent increase in elavil Sleep: Endo: Impression: 1. IBS: fodmap diet and other dietary recommendations. Probiotics. Bentyl 10mg qid. 2. Gerd: nexium 40mg bid, 30 minutes before breakfast and supper. gerd diet and lifestyle modifications. 3. Will obtain test results from pcp, to determine if further testing is needed. I spent a total of 54 minutes face to face with this patient; 36 minutes were spent counseling the patient in the medical problems described above. Sincerely, Augusot Rodriguez NP Section of Gastroenterology and Hepatology documented in this encounter Plan of Treatment Not on filedocumented as of this encounter Visit Diagnoses Diagnosis IBS (irritable bowel syndrome) - Primary Irritable bowel syndrome documented in this encounter Care Teams Compensation Adjuster Relationship Specialty Start Date End Date Gris Bates MD PCP - General 01/17/[address] [place] [address] [address] [facility] [address] [place] [address] documented as of this encounter
--- OUTSIDE RECORDS SUMMARY | 2022-03-01 00:41 | XMS_ITS | Encounter Summary ---
:1945 Author Organization [facility] [place] [address] Care Team Providers Name Role Phone Gris Bates MD Primary Care Provider Reason for Visit Reason Onset Date Comments Prior Authorization 06/06/2012 Bentyl Encounter Details Date Type Department Care Team Description 06/06/2012 Telephone Gastroenterology at [facility] Vicki Sheehan, Prior Authorization [facility] Lubna simmons RN (Vanessa) [place] [address] Social History Tobacco Use Types Packs/Day Years Used Date Current Every Day Smoker Cigarettes 0.7 Smokeless Tobacco: Never Used Alcohol Use Standard Drinks/Week Comments No 0 (1 standard drink = 0.6 oz pure alcoho l) Sex Assigned at Date Recorded Not on file documented as of this encounter Miscellaneous Notes Telephone Encounter - Vicki Sheehan CMA - 06/06/2012 11:04 AM EDT Medication: Bentyl Dosage: 10 mg Frequency & Route: take one capsule by mouth four times a day Insurance & Phone #: Blue Medicare RX [phone] ID #: [id number] Trialed (dosage, frequency): Notes: PA approved until 08/11/2022 documented in this encounter Plan of Treatment Not on filedocumented as of this encounter Visit Diagnoses Not on filedocumented in this encounter Care Teams Inspector Balance Truing Relationship Specialty Start Date End Date Gris Bates MD PCP - General 01/17/[address] [place] [address] documented as of this encounter
--- OUTSIDE RECORDS SUMMARY | 2022-03-01 00:41 | XMS_ITS | Encounter Summary ---
:1945 [address] [facility] [place] [address] Care Team Providers Name Role Phone Gris Bates MD Primary Care Provider Encounter Details Date Type Department Care Team Description 05/20/2012 Hospital Encounter MRI at [facility], DR WILFREDO MORROW (multiple sclerosis); [facility] Teo Ovalles MD [facility] [place] [address] [place] [id number] Social History Tobacco Use Types Packs/Day Years Used Date Current Every Day Smoker Cigarettes 0.7 Smokeless Tobacco: Never Used Alcohol Use Standard Drinks/Week Comments No 0 (1 standard drink = 0.6 oz pure alcoho l) Sex Assigned at Date Recorded Not on file documented as of this encounter Last Filed Vital Signs Vital Sign Reading Time Taken Comments Blood Pressure 115/64 05/20/2012 4:28 PM EDT Pulse 54 05/20/2012 4:28 PM EDT Temperature 36.5 ??C (97.7 ??F) 05/20/2012 4:12 PM EDT Respiratory Rate 16 05/20/2012 4:28 PM EDT Oxygen Saturation 100% 05/20/2012 4:28 PM EDT Inhaled Oxygen Concentration - - Weight 69.9 kg (154 lb) 05/20/2012 6:16 AM EDT Height - - Body Mass Index 26.43 03/11/2012 12:12 PM EDT documented in this encounter Discharge Instructions Discharge InstructionsTeAntionette aguilar RN - 05/20/2012 4:16 PM EDT 1. You may have received medication before and/or during your procedure, which affects judgment and reaction time. 2. Do not drive, operate machinery, drink alchololic beverages, or make important decisions for 24 hours. 3. Be careful on stairs, as you may be unsteady on your feet. 4. You may eat a regular diet as tolerated. 5. Do not smoke if you are alone. 6. IV site- slight redness or tenderness is normal, you can use warm compresses. If tenderness and redness increases or foul drainage occours, please contact your M.D. documented in this encounter Medications at Time of Discharge [...] Take 1 tablet by 30 tablet 3 03/11/ 012 06/02/2012 10 mg tablet mouth nightly. oxybutynin (DITROPAN) 5 Take 5 mg by mouth 0 06/02/2012 mg tablet daily. venlafaxine (EFFEXOR-XR) Take 37.5 mg by 0 06/02/2012 37.5 mg 24 hr capsule mouth daily. documented as of this encounter Progress Notes Tommy Santiago MD - 05/20/2012 2:39 PM EDT Moderate IV sedation for MRI PE: RRR CTAB ASA - 2 Mallampati - 2 Bob Rodríguez RN - 05/16/2012 9:[address] [facility] NURSING DATABASE Name: LORIE COSTA Date of : 1945 AGE 66 y.o. Address: [address] [address] (home) Mobile: No relevant phone numbers on file. Referring Provider: Teo Ovalles Reason for Visit: 66 yo female here for MRI of brain - hx of MS with new visual changes. MRI is to follow up with this. Pt reports claustrophobia, but has never tried scan with PO meds. Plan is to attempt PO meds & escalate to IV if needed. Pt is aware of plan. She is coming/going via [facility] and willhave a home health aid present with her. Allergies Allergen Reactions ??? Penicillins CIS - Unknown ??? Sulfa (Sulfonamide Antibiotics) CIS - Unknown ??? Povidone-iodine CIS - Unknown Pertinent PMH: Patient Active Problem List Diagnoses Code ??? Multiple sclerosis 340 ??? Vitamin B12 deficiency 266.2AM ??? Anxiety 300.00E ??? Memory loss 780.93 ??? Hypertension 401.9AJ ??? Dysphagia 787.20S Wheelchair bound hyperlipidemia Pertinent PSH: No past surgical history on file. Date/Procedure Comments: 05-20-12 MRI Brain Fentanyl 175mcg. IV, Versed 3.5mg. IV Succesful scan Laboratory Results: No results found for this basename: inr No results found for this basename: PT, PTT Lab Results Component Value Date BUN 7* 03/11/2012 Lab Results Component Value Date CREATININE 0.71 03/11/2012 Lab Results Component Value Date K 2.4* 03/11/2012 Lab Results Component Value Date PLATELET 290 03/11/2012 Medications: Prior to Admission medications Medication Sig Start Date End Date Taking? Authorizing Provider potassium chloride (K-DUR) 10 mEq tablet Take 2 tablets by mouth 2 times daily (with meals). 03/12/12 Teo Ovalles MD Cholecalciferol, Vitamin D3, (VITAMIN D) 1,000 unit Cap Take 1,000 Units by mouth 2 times daily (with meals). 03/12/12 Teo Ovalles MD amitriptyline (ELAVIL) 10 mg tablet Take 1 tablet by mouth nightly. 03/11/12 Teo Ovalles MD esomeprazole (NEXIUM) 20 mg capsule Take 20 mg by mouth daily. Historical ProviderMD Magnesium Gluconate (MAGONATE) 500 mg tablet Take 500 mg by mouth daily. Historical Provider, simvastatin (ZOCOR) 20 mg tablet Take 20 mg by mouth nightly. Historical ProviderMD oxybutynin (DITROPAN) 5 mg tablet Take 5 mg by mouth daily. Historical ProviderMD venlafaxine (EFFEXOR-XR) 37.5 mg 24 hr capsule Take 37.5 mg by mouth daily. Historical ProviderMD Cyanocobalamin 100 mcg/mL Soln Inject 1,000 mcg as directed every 30 days. Historical ProviderMD interferon beta-1a (AVONEX) 30 mcg injection Inject 30 mcg into the muscle every 7 days. Historical ProviderMD Estradiol (VAGIFEM) [address] 10 mcg vaginally 3 times daily as needed. AdaProMD britany acetaminophen (TYLENOL) 500 mg tablet Take by mouth every 4 hours as needed. Historical ProviderMD documented in this encounter Miscellaneous Notes Miscellaneous - Provider, Miranda - 05/30/2012 11:01 AM EDT Miscellaneous - Provider, Scanning - 05/26/2012 9:50 AM EDT documented in this encounter Plan of Treatment Not on filedocumented as of this encounter Procedures Procedure Name Priority Date/Time Associated Diagnosis Comme nts MRI BRAIN WWO Routine 05/20/2012 4:07 PM MS (multiple Results for this CONTRAST (GENERIC) EDT sclerosis) procedure are in the results section. documented in this encounter Results MRI brain with/WO contrast (05/20/2012 4:07 PM EDT) Anatomical Region Laterality Modality Head Magnetic Resonance Specimen (Source) Anatomical Collection Method Collection Time Re ceived Time Location / / Volume Laterality 05/20/2012 4:07 PM EDT Narrative 05/28/2012 4:04 PM EDT Examination MR BRAIN W/WO CONTRAST Clinical History F/U for multiple sclerosis. Left proptos is Comparison MRI Brain report from 11/02/20081998, M [place] images are not available for comparison. Technique MRI of the brain and orbits before and a fter the intravenous administration of 15 mL of Magnevist gadolinium. Findings Numerous foci of [...] be different from the original. Examination MR BRAIN W/WO CONTRAST Clinical History F/U for multiple sclerosis. Left proptos is Comparison MRI Brain report from 11/02/20081998, M [place] images are not available for comparison. Technique MRI of the brain and orbits before and a fter the intravenous administration of 15 mL of Magnevist gadolinium. Findings Numerous foci of [...] ORDERABLES documented in this encounter Visit Diagnoses Diagnosis MS (multiple sclerosis) Multiple sclerosis Anxiety Anxiety state, unspecified documented in this encounter Administered Medications Inactive Administered Medications - up to 3 most recent administrations Medication Order MAR Action Action Date Dose Rate Site fentaNYL 50mcg/mL injection Given 05/20/2012 3:50 PM EDT 175 mcg 25-50 mcg, Intravenous, EVERY 5 MIN PRN, Starting on Sat05/20/12 at 1438, Until Sat05/20/12 at 1742, Pain, Routine gadopentetate dimeglumine (MAGNEVIST) Given 05/20/2012 3:49 PM E DT 15 mLs injection 14 mL 14 mL (0.2 mL/kg/dose ? 69.9 kg), Intravenous, ONCE PRN, 1 dose, Starting on Sat05/20/12 at 0616, Until Sat05/20/12 at 1549, Per Protocol, Routine midazolam (VERSED) injection 0.5-1 mg Given 05/20/2012 3:50 PM EDT 3.5 mg 0.5-1 mg, Intravenous, EVERY 5 MIN PRN, Starting on Sat05/20/12 at 1438, Until Sat05/20/12 at 1742, Sleep, Routine documented in this encounter Care Teams Timber Inspector Relationship Specialty Start Date End Date Gris Bates MD PCP - General 01/17/[address] [place], [place] [address]Y [facility] [address] [place] [address] documented as of this encounter
--- OUTSIDE RECORDS SUMMARY | 2022-03-01 00:41 | XMS_ITS | Encounter Summary ---
:1945 Author Organization [facility] [place] [address] Care Team Providers Name Role Phone Gris Bates MD Primary Care Provider Reason for Visit Reason Onset Date Comments Medication Refill 10/20/2012 Encounter Details Date Type Department Care Team Description 10/20/2012 Refill Neurology at [facility] Teo Ovalles MD [facility] [place] [address] NEUROLOGY DEPT. [phone] [place], [place] [address] (Wo rk) Social History Tobacco [...] on filedocumented in this encounter Care Teams Stone Gang Sawyer Relationship Specialty Start Date End Date Gris Bates MD PCP - General 01/17/[address] [place], [place] [address] documented as of this encounter
--- OUTSIDE RECORDS SUMMARY | 2022-03-01 00:41 | XMS_ITS | Encounter Summary ---
:1945 Author Organization [facility] [place] [address] Care Team Providers Name Role Phone Gris Bates MD Primary Care Provider Encounter Details Date Type Department Care Team Description 03/10/2012 Abstract Neurology at [facility] Faina Devine, [place] [address] Social History Tobacco Use Types Packs/Day Years Used Date Never Assessed Sex Assigned at Date Recorded Not on file documented as of this encounter Plan of Treatment Not on filedocumented as of this encounter Visit Diagnoses Not on filedocumented in this encounter Care Teams Nurse School Relationship Specialty Start Date End Date Gris Bates MD PCP - General 01/17/[address] [place] [id number] documented as of this encounter
--- OUTSIDE RECORDS SUMMARY | 2022-03-01 00:41 | XMS_ITS | Encounter Summary ---
:1945 Author Organization [facility] [place] [address] Care Team Providers Name Role Phone Gris Bates MD Primary Care Provider Reason for Visit Reason Onset Date Comments Prior Authorization 06/06/2012 Nexium Encounter Details Date Type Department Care Team Description 06/06/2012 Telephone Gastroenterology at [facility] Vicki Sheehan, Prior Authorization [facility] Lubna simmons RN (Nexium) [place] [address] Social History Tobacco Use Types Packs/Day Years Used Date Current Every Day Smoker Cigarettes 0.7 Smokeless Tobacco: Never Used Alcohol Use Standard Drinks/Week Comments No 0 (1 standard drink = 0.6 oz pure alcoho l) Sex Assigned at Date Recorded Not on file documented as of this encounter Miscellaneous Notes Telephone Encounter - Vicki Sheehan CMA - 06/06/2012 10:57 AM EDT Medication: Nexium Dosage: 40 mg Frequency & Route: BID Insurance & Phone #: Blue Medicare RX [phone] ID #: [id number] Trialed (dosage, frequency): Nexium QD, Pantoprazole Notes: PA approved until 08/11/2022 documented in this encounter Plan of Treatment Not on filedocumented as of this encounter Visit Diagnoses Not on filedocumented in this encounter Care Teams Insurance And Benefits Clerk Relationship Specialty Start Date End Date Gris Bates MD PCP - General 01/17/[address] [place] [address] documented as of this encounter
--- OUTSIDE RECORDS SUMMARY | 2022-03-01 00:41 | XMS_ITS | Encounter Summary ---
:1945 Author Organization [facility] [place] [address] Care Team Providers Name Role Phone Gris Bates MD Primary Care Provider Reason for Visit Reason Comments Medication Refill Encounter Details Date Type Department Care Team Description 01/14/2014 Refill Gastroenterology at [facility] Augusto Rodriguez APRN [facility] [place] [address] GASTROENTEROLOGY DEPT. [phone] [place], [place] [address] (Wo rk) Social History Tobacco [...] on filedocumented in this encounter Care Teams Automotive Software Engineer Relationship Specialty Start Date End Date Gris Bates MD PCP - General 01/17/[address] [place], [place] [address] documented as of this encounter
--- OUTSIDE RECORDS SUMMARY | 2022-03-01 00:41 | XMS_ITS | Encounter Summary ---
:1945 Author Organization [facility] [place] [address] Care Team Providers Name Role Phone Gris Bates MD Primary Care Provider Encounter Details Date Type Department Care Team Description 03/12/2012 Orders Only Neurology at [facility] Teo Ovalles MD [facility] [place] [address] NEUROLOGY DEPT. [phone] [place], [place] [address] (Wo rk) Social History Tobacco [...] on filedocumented in this encounter Care Teams Core Oven Tender Relationship Specialty Start Date End Date Gris Bates MD PCP - General 01/17/[address] [place] [id number] documented as of this encounter
--- OUTSIDE RECORDS SUMMARY | 2022-03-01 00:41 | XMS_ITS | Encounter Summary ---
:1945 Author Organization [facility] [place] [address] Care Team Providers Name Role Phone Gris Bates MD Primary Care Provider Reason for Visit Reason Onset Date Comments Medication Refill 06/03/2012 Encounter Details Date Type Department Care Team Description 06/03/2012 Refill Gastroenterology at [facility] Ramonita Nunes, [place] [address] Social History Tobacco Use Types Packs/Day [...] on filedocumented in this encounter Care Teams Acid Operator Relationship Specialty Start Date End Date Gris Bates MD PCP - General 01/17/[address] [place] [id number] documented as of this encounter
--- OUTSIDE RECORDS SUMMARY | 2022-03-01 00:41 | XMS_ITS | Encounter Summary ---
:1945 Author Organization [facility] [place] [place] [address] Care Team Providers Name Role Phone Gris Bates MD Primary Care Provider Reason for Visit Reason Onset Date Comments Other 03/12/2012 Encounter Details Date Type Department Care Team Description 03/12/2012 Telephone Neurology at [facility] Teo Ovalles MD Other [facility] [place] [address] NEUROLOGY DEPT. [phone] [place], [place] [address] (Wo rk) Social History Tobacco Use Types Packs/Day Years Used Date Current Every Day Smoker Cigarettes 0.7 Smokeless Tobacco: Never Used Alcohol Use Standard Drinks/Week Comments No 0 (1 standard drink = 0.6 oz pure alcoho l) Sex Assigned at Date Recorded Not on file documented as of this encounter Miscellaneous Notes Telephone Encounter - MarsMalia Guerrier RAFFI Rm - 03/12/2012 11:38 AM EDT Follow up call: I spoke to patient to inform her that Dr Ovalles had reviewed her lab results from 03/11/2012 and her vitamin D and potassium were both low. He would like her to start taking OTC VitaminD 1000 unit twice daily with meals and Potassium (10 mEq tabs) 2 tablets twice daily and to follow up with her PCP. I'm faxing a script to [facility] in [place], [place] for the potassium. I'm also faxing over results of labs to Dr Bates' office who is patient's PCP. I've left a voicemail for Deya,Dr Bates' nurse informing her of all the above information. documented in this encounter Plan of Treatment Not on filedocumented as of this encounter Visit Diagnoses Not on filedocumented in this encounter Care Teams Animal Physiologist Relationship Specialty Start Date End Date Gris Bates MD PCP - General 01/17/[address] [place] [address] [address] [place] [address] documented as of this encounter
--- OUTSIDE RECORDS SUMMARY | 2022-03-01 00:41 | XMS_ITS | Encounter Summary ---
:1945 Author Organization [facility] [place] [address] Care Team Providers Name Role Phone Gris Bates MD Primary Care Provider Reason for Referral Consultation (Routine) - Closed Specialty Diagnoses / Procedures Referred By Contact Refer red To Contact Ophthalmology Diagnoses MS (multiple sclerosis) Teo Rapp MD Pepin, Susan M, MD [facility] NEUROLOGY DEPT. [place] [address] [place] [address] Fax: Referral ID Status Reason Start Date Expiration Date Visits V isits Requested Authorized [id number] Closed Consult, 03/11/2012 09/07/2012 1 1 Test & Treat Reason for Visit Reason Comments Multiple Sclerosis Encounter Details Date Type Department Care Team Description 03/11/2012 Office Visit Neurology at [facility] Teo Rapp, MS (multiple sclerosis) (Damari villela Dx); [facility] Dysphagia; [facility] [place] [address] NEUROLOGY DEPT. [phone] [place], [place] [address] Social History Tobacco Use Types Packs/Day Years Used Date Current Every Day Smoker Cigarettes 0.7 Smokeless Tobacco: Never Used Alcohol Use Standard Drinks/Week Comments No 0 (1 standard drink = 0.6 oz pure alcoho l) Sex Assigned at Date Recorded Not on file documented as of this encounter Last Filed Vital Signs Vital Sign Reading Time Taken Comments Blood Pressure 129/81 03/11/2012 12:12 PM EDT Pulse 79 03/11/2012 12:12 PM EDT Temperature - - Respiratory Rate - - Oxygen Saturation - - Inhaled Oxygen Concentration - - Weight 69.9 kg (154 lb) 03/11/2012 12:12 PM EDT reporte d Height 162.6 cm (5' 4) 03/11/2012 12:12 PM EDT reporte d Body Mass Index 26.43 03/11/2012 12:12 PM EDT documented in this encounter Patient Instructions Patient InstructionsTeo Rapp MD - 03/11/2012 8:06 PM EDT I think you're doing reasonably well. The multiple sclerosis has been fairly stable. Please stay on the Avonex injections We need to investigate the eye problems more thoroughly. I'm requesting MRI scan of the brain, and will get blood tests today. I will also arrange for you to be seen by our neuro-clip and hanger attacher Dr. Hudson I will see you back in 1-2 months after you have had the tests and seen Dr. Hudson documented in this encounter Progress Notes Teo Rapp MD - 03/11/2012 1:36 PM EDT Neurology attending consultation note CC: multiple sclerosis History: The patient is 66 years old and right handed; and is referred for neurological consultation by Dr. Bates for reevaluation of multiple sclerosis. The patient had a normal and early development. He did well in school. There were no childhoodproblems suggestive of any neurological disorder. 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 At this time she was evaluated with MRI scan of the brain which showed lesions compatible with a diagnosis of multiple sclerosis. I do not have the results of imaging of the spinal cord. Visual evoked potential study was abnormal, and lumbar puncture showed oligoclonal bands. She was given a diagnosis of multiple sclerosis at that time. Over the years the patient has had a gradual deterioration of gait and balance. She can walk a few steps. She feels bilaterally weak and uncoordinated. She has some urinary urgency and symptoms are controlled with medication. She also feels that she has had significant loss of memory. She seems to have had predominantly relapsing because disease, and may now be entering the secondaryprogressive phase. She describes a series a stepwise declines with little or no improvement in between. The she feels that the number and frequency of episodes of declined has decreased since she was placed on Avonex. She does not know for certain how many years she has been on it. She has not been any other chronic injectable therapy. She has had courses of steroids in the past. Her main complaints now are visual although she does not give a clear history of optic neuritis. Shedescribes blurry vision and diplopia on right lateral gaze with been excluding side to side. She also says that she feels that her left eyeball is under pressure and that she is gradually developing more proptosis. She does not describe pain. She also complains of headaches that are usually temporal, somewhat more prominent on the right. They happen on most days. They last for hours and respond to Tylenol. She does not associate these withother migrainous symptoms and describes no change in speech or swallowing. PMH: Patient Active Problem List Diagnoses Code ??? Multiple sclerosis 340 ??? Vitamin B12 deficiency 266.2AM ??? Anxiety 300.00E ??? Memory loss 780.93 ??? Hypertension 401.9AJ ??? Dysphagia 787.20S FH: Her mother had a stroke and was suffering from diabetes. Her father had coronary artery disease. SH: The patient is . She is living alone. She is on disability. She has grown children in [place] but feels they are not really in touch with her ROS: 1. Eating: Appetite is poor 2. Sleeping: Sleep is often disturbed 3. Bowels: Normal 4. Bladder: Normal on medication 5. All other systems were reviewed: Normal Medications: Current outpatient prescriptions Medication Sig Dispense Refill ??? amitriptyline (ELAVIL) 10 mg tablet Take 1 tablet by mouth nightly. 30 tablet 3 ??? esomeprazole (NEXIUM) 20 mg capsule Take 20 mg by mouth daily. ??? Magnesium Gluconate (MAGONATE) 500 mg tablet Take 500 mg by mouth daily. ??? simvastatin (ZOCOR) 20 mg tablet Take 20 mg by mouth nightly. ??? oxybutynin (DITROPAN) 5 mg tablet Take 5 mg by mouth daily. ??? venlafaxine (EFFEXOR-XR) 37.5 mg 24 hr capsule Take 37.5 mg by mouth daily. ??? Cyanocobalamin 100 mcg/mL Soln Inject 1,000 mcg as directed every 30 days. ??? interferon beta-1a (AVONEX) 30 mcg injection Inject 30 mcg into the muscle every 7 days. ??? Estradiol (VAGIFEM) [address] 10 mcg vaginally 3 times daily as needed. ??? acetaminophen (TYLENOL) 500 mg tablet Take by mouth every 4 hours as needed. Allergies: Penicillins, Sulfa (sulfonamide antibiotics) and Povidone-iodine Physical Exam: VS: BP 129/81 Pulse 79 Ht 162.6 cm (5' 4) Wt 69.854 kg (154 lb) BMI 26.43 kg/m2 HEENT: Normal Heart: Normal S1, S2, no abnormal sounds Lungs: Clear Abdomen: Benign Extremities: Normal, some arthritic changes, and mild edema Neurological exam: Mental state: Normal, but memory for remote events is decidedly vague. I think she is somewhat depressed Speech: Normal Cranial nerves: I: Not tested II: Normal vision 20/25 left and right, slight proptosis of the left eye compared to the right III, IV, : EOMs full, but has horizontal diplopia on right lateral gaze. There may be a very slight weakness of the right lateral rectus muscle. I note that there has been an attempt to correct this with a prism in her glasses. V: Facial sensation normal VII: Facial strength normal but there is slight flattening of the right nasolabial fold VIII: Hearing normal IX, X: Palate movement normal XI: Shoulder shrug normal XII: Tongue movement normal Motor: Strength: She is somewhat diffusely weak 5-/5 bilaterally possibly little weaker on the left particularly in the leg Fine motor: Somewhat diminished bilaterally, mild flexion contractures of the second and third fingers in the right hand due to Dupuytren contracture and moderate to severe contractures of fourth and fifth digits on the left Tone: Normal Abnormal movements: None DTR: 2+, absent ankle reflexes. Babinski sign: None Sensation: Touch: Normal Pin: Normal Position: Normal Vibration: Decreased in the legs and there are patchy asymmetries bilaterally of uncertain significance Neglect/extinction: None Graphesthesia: Normal Cerebellar: Finger to nose: Normal Heel to wright: Mild ataxia Gait: Ataxic in a nonspecific manner. She can walk a few yards without difficulty. She uses a motor scooter effectively. Labs: Orders Placed This Encounter Procedure ??? Mri brain with/wo contrast ??? Vitamin b12 ??? T4 ??? Tsh ??? Basic metabolic panel (non-fasting) ??? Hepatic function panel ??? Cbc (with diff) ? ? Lyme igg & igm antibody ??? Protein electrophoresis, serum ??? Jennifer ??? Cardiolipin antibody screen ??? Tissue transglutaminase, iga ??? Ck ??? Rheumatoid factor, quant ??? Folate, serum ??? Vit d total evaluation ??? Sedimentation rate ??? High sensitivity crp ??? Thyroglobulin antibody ??? Thyroid peroxidase antibody ??? Acetylcholine receptor ab binding ??? Differential, automated ??? Referral to ophthalmology MRI scan: As noted above. New study ordered for comparison Impression and suggestions: The patient appears to have gradually worsening multiple sclerosis with a stepwise decline that may be becoming secondarily progressive. Overall she seems to have done reasonably well on Avonex. I think we should keep her on it unless the MRI scan showed evidence of active inflammation with gadoliniumenhancement of lesions. I do not have a clear explanation for her ocular complaints and signs. There does indeed appear to be mild proptosis of the left eye, and some diplopia on extreme right lateral gaze with possible restriction of movement of the right high. I am screening her with blood tests for thyroid disease and myasthenia gravis, and also obtaining MRI scan of the brain with request for special cuts through the orbits. I am also requesting consultation from neuro-ophthalmology, Dr. Hudson. I think she should continue with her present medical regimen. Her headaches at the moment respond adequately to 2 extra strength Tylenol twice a day, and I would not change that until I see her next with the results of the above mentioned studies. Thank you for this consultation I will see the patient back in a few weeks. Teo Rapp MD [place] [address] Pager: [phone], #[phone] Email: [email or web address] CC: Dr.Dargis Dr. Hudson Addendum: Laboratory studies show the patient seems to have a very low potassium level ( 2.4) and also a very low vitamin D level (7). I have ordered supplementation, but would appreciate her PCP, , following up. Teo Rapp M.D. documented in this encounter Plan of Treatment Scheduled Referrals Name Type Priority Associated Order Schedule Diagnoses REFERRAL TO Outpatient Referral Routine MS (multiple Ordered: OPHTHALMOLOGY sclerosis) 03/11/2012 documented as of this encounter Procedures Procedure Name Priority Date/Time Associated Comments Diagnosis LYME IGG & IGM Routine 03/11/2012 2:43 PM MS (multiple Results for this ANTIBODY EDT sclerosis) procedure are i n the results section. THYROGLOBULIN ANTIBODY Routine 03/11/2012 2:43 PM MS (multiple Results for this EDT sclerosis) procedure are i n the results section. DIFFERENTIAL, Routine 03/11/2012 2:43 PM Results for this AUTOMATED EDT procedure are i n the results section. THYROID PEROXIDASE Routine 03/11/2012 2:43 PM MS (multiple Res ults for this ANTIBODY EDT sclerosis) procedure are i n the results section. ACETYLCHOLINE RECEPTOR Routine 03/11/2012 2:43 PM MS (multiple Results for this AB BINDING EDT sclerosis) procedure are i n the results section. TISSUE Routine 03/11/2012 2:43 PM MS (multiple Results f or this TRANSGLUTAMINASE, IGA EDT sclerosis) proced ure are in the results section. VITAMIN D, 25-HYDROXY Routine 03/11/2012 2:43 PM MS (multiple Results for this EDT sclerosis) procedure are i n the results section. CARDIOLIPIN ANTIBODY Routine 03/11/2012 2:43 PM MS (multiple R esults for this SCREEN EDT sclerosis) procedure are i n the results section. SEDIMENTATION RATE Routine 03/11/2012 2:43 PM MS (multiple Res ults for this EDT sclerosis) procedure are i n the results section. CBC (WITH DIFF) Routine 03/11/2012 2:43 PM MS (multiple Result s for this EDT sclerosis) procedure are i n the results section. RHEUMATOID FACTOR, Routine 03/11/2012 2:43 PM MS (multiple Res ults for this QUANT EDT sclerosis) procedure are i n the results section. CRP, CARDIAC RISK (HS Routine 03/11/2012 2:43 PM MS (multiple Results for this CRP) EDT sclerosis) procedure are i n the results section. JENNIFER Routine 03/11/2012 2:43 PM MS (multiple Results f or this EDT sclerosis) procedure are i n the results section. TSH Routine 03/11/2012 2:43 PM MS (multiple Results f or this EDT sclerosis) procedure are i n the results section. T4 TOTAL Routine 03/11/2012 2:43 PM MS (multiple Results f or this EDT sclerosis) procedure are i n the results section. PROTEIN Routine 03/11/2012 2:43 PM MS (multiple Results f or this ELECTROPHORESIS, SERUM EDT sclerosis) proce dure are in the results section. FOLATE, SERUM Routine 03/11/2012 2:43 PM MS (multiple Results for this EDT sclerosis) procedure are i n the results section. VITAMIN B12 Routine 03/11/2012 2:43 PM MS (multiple Results f or this EDT sclerosis) procedure are i n the results section. CK Routine 03/11/2012 2:43 PM MS (multiple Results f or this EDT sclerosis) procedure are i n the results section. HEPATIC FUNCTION PANEL Routine 03/11/2012 2:43 PM MS (multiple Results for this EDT sclerosis) procedure are i n the results section. BASIC METABOLIC PANEL Routine 03/11/2012 2:43 PM MS (multiple Results for this (NON-FASTING) EDT sclerosis) procedure are in the results [...] proptos is Comparison MRI Brain report from 11/02/2008 1999, M RI images are not available for [...] sclerosis. No gadolinium enhancing lesion identified. Teo Rapp MD [facility] MRI ORDERABLES DIFFERENTIAL, AUTOMATED (03/11/2012 2:43 PM EDT) P athologist Signature Neutrophils % 59.8 34.0 - CERNER 71.0 % MILLENNIUM Neutr Abs (ANC) 2.65 1.50 - CERNER 6.30 MILLENNIUM x10(3)/mcL Lymphocytes % 31.4 19.0 - CERNER 53.0 % MILLENNIUM Lymphocytes Abs 1.4 1.0 - 3.6 CERNER x10(3)/mcL MILLENNIUM Monocytes % 7.4 4.0 - 13.0 CERNER % MILLENNIUM Monocyte Abs 0.3 0.2 - 1.0 CERNER x10(3)/mcL MILLENNIUM Eosinophils % 0.5 0.0 - 7.0 CERNER % MILLENNIUM Eosinophils Abs 0.0 0.0 - 0.5 CERNER x10(3)/mcL MILLENNIUM Basophils % 0.7 0.0 - 2.0 CERNER % MILLENNIUM Basophils Abs 0.0 0.0 - 0.2 CERNER x10(3)/mcL MILLENNIUM Immature Gran % 0.20 0.00 - CERNER 0.66 % MILLENNIUM Comment: Immature granulocytes(IG's)percentage an d absolute count will include metamyelocytes, myelocytes, and promyelo cytes. Blood smears from CBCs yielding IG's will be scanned manually for concor dance. If this scan disagrees with the automated IG or if promyelocytes are not ed, a manual differential will be performed. Muna Gran Abs 0.01 0.00 - 0.05 x10(3)/mcL CER NER MILLENNIUM Specimen Anatomical Collection Method Collection Time Receive d Time (Source) Location / / Volume Laterality Blood specimen 03/11/2012 2:43 PM 012 2:51 (specimen) EDT PM EDT Teo Rapp MD HEMATOLOGY ORDERABLES Performing Organization Address City/State/[place] [address] CERNER MILLENNIUM Acetylcholine Receptor Ab Binding (03/11/2012 2:43 PM EDT) P athologist Signature ACHr Binding 0.00 <=0.02 CERNER Ab nmol/L MILLENNIUM Comment: Test Performed by: [place] [id number] Traffic Assistant: Khris curtis III, M.D. Specimen Anatomical Collection Method Collection Time Receive d Time (Source) Location / / Volume Laterality Blood specimen 03/11/2012 2:43 PM 012 3:39 (specimen) EDT PM EDT Resulting Agency Comment Spec In Lab Teo Rapp MD CHEMISTRY ORDERABLES Performing Organization Address City/[facility]/ZIP [facility] Phon e Number [address] CERNER MILLENNIUM Thyroid peroxidase antibody (03/11/2012 2:43 PM EDT) athologist Signature Thyroperox Ab 11 <=34 IU/mL CERNER MILLENNIUM Specimen Anatomical Collection Method Collection Time Receive d Time (Source) Location / / Volume Laterality Blood specimen 03/11/2012 2:43 PM 012 8:14 (specimen) EDT AM EDT Resulting Agency Comment Spec In Lab Teo Rapp MD IMMUNOLOGY ORDERABLES Performing Organization Address City/[facility] Phon e Number [address] CERNER MILLENNIUM Thyroglobulin Antibody (03/11/2012 2:43 PM EDT) athologist Signature Thyroglob Ab <20.0 0.0 - 40.0 CERNER IU/mL MILLENNIUM Comment: Assay performed is the DPC Immulite Tg-A b immunometric assay. (Cutoff for TgAb negativity is <20 IU/ml ) Specimen Anatomical Collection Method Collection Time Receive d Time (Source) Location / / Volume Laterality Blood specimen 03/11/2012 2:43 PM 012 8:14 (specimen) EDT AM EDT Resulting Agency Comment Spec In Lab Teo Rapp MD CHEMISTRY ORDERABLES Performing Organization Address City/[facility] Phon e Number [address] CERNER MILLENNIUM High Sensitivity CRP (03/11/2012 2:43 PM EDT) athologist Signature CRP High Sens 4.1 mg/L CERNER MILLENNIUM Comment: Interpretations: 1) For cardiac risk assessment, two valu es (fasting or nonfasting sample acceptable) taken at least 2 weeks apart , should be averaged to provide a more reliable estimate of marker level. ??Thi s laboratory uses the recommendations from the AHA/CDC Scientific Statement fo r interpretations of future risks of cardiovascular events: ? <1.0 mg/L: low risk 1.0 - 3.0 mg/L: moderate risk >3.0 mg/L: high risk groups for future c ardiovascular events 2) The general reference range of appare ntly healthy individuals using this test is <5.0 mg/L (derived from the test package insert) A few words of caution: For cardiac asse ssment, when a value >10 mg/L is encountered, there should be a search fo r an acute inflammatory condition or infection (in patients with acute inflam mation, the concentration can increase to >500 mg/L). ??The >10 mg/L should be discarded if such a situation exists, since the risk for coronary heart diseas e cannot be provided, and a repeat specimen, taken at least two weeks after resolution of the acute inflammatory condition, may allow for appraisal of co ronary risk information. Please note that significantly decreased CRP values may be obtained from samples taken from patients who have bee n treated with carboxypenicillins. References: 1. Selin BEST et. al. ??AHA/CDC Scientif ic Statement: Markers of Inflammation and Cardiovascular Disease. ??Circulatio n 2003; 107:499-511 2. Ridker PM. ??Clinical applications of C-reactive protein for cardiovascular disease detection and prevention. ??Circ ulation 2003; 107:363-369 Specimen Anatomical Collection Method Collection Time Receive d Time (Source) Location / / Volume Laterality Blood specimen 03/11/2012 2:43 PM 012 2:51 (specimen) EDT PM EDT Resulting Agency Comment Spec In Lab Teo Rapp MD CHEMISTRY ORDERABLES Performing Organization Address City/State/[place] [address] CERNER MILLENNIUM Sedimentation rate (03/11/2012 2:43 PM EDT) P athologist Signature Sed Rate 17 0 - 20 CERNER mm/hr MILLENNIUM Specimen Anatomical Collection Method Collection Time Receive d Time (Source) Location / / Volume Laterality Blood specimen 03/11/2012 2:43 PM 012 2:51 (specimen) EDT PM EDT Resulting Agency Comment Spec In Lab Teo Rapp MD HEMATOLOGY ORDERABLES Performing Organization Address City/[facility]/[place] [address] CERNER MILLENNIUM (ABNORMAL) VIT D Total Evaluation (03/11/2012 2:43 PM EDT) P athologist Signature 25-OH Vit D 7 (L) 30 - 100 CERNER Total ng/mL MILLENNIUM Comment: Deficient <10 ng/mL Insufficient 10 to 29 ng/mL Sufficient 30 to 100 ng/mL Potential Intoxication >100 ng/mL According to the [place] National Osteoporosi s Foundation, Vitamin D concentrations >30 ng/mL are sufficient to protect bone health. ??The National Kidney Foundation has similarly stated that pat ients with Vitamin D concentrations <30ng/mL should be considered to be insu fficient or deficient. http://www.kidney.org/professionals/KDOQ I/guidelines_bone/Guide7.htm http://www.nof.org/professionals/clinica l-guidelines The IDS iSYS Vitamin D Immunoassay detec ts both 25-OH Vitamin D2 and 25-OH Vitamin D3, but only a total Vitamin D c oncentration is reported. Please note, the performing location for this test has changed. ??As of 09/18/2011 the Vitamin D Total, 25 [place] xy assays are being analyzed by the [facility] Chemistry Laboratory. ??There is NO CHANGE in units. ??Please contact the chemistry laboratory at [phone] with ques tions. Specimen Anatomical Collection Method Collection Time Receive d Time (Source) Location / / Volume Laterality Blood specimen 03/11/2012 2:43 PM 012 2:51 (specimen) EDT PM EDT Resulting Agency Comment Spec In Lab Teo Rapp MD CHEMISTRY ORDERABLES Performing Organization Address City/[facility]/ZIP Code Phon e Number [place] [id number] CERNER MILLENNIUM Folate, serum (03/11/2012 2:43 PM EDT) athologist Signature Folate Lvl 6.7 4.6 - 34.8 CERNER ng/mL [facility] Comment: Please note: Serum Folate Reference Rang e update 03/06/2012 1130 AM: New Range: 4.6 to 34.8 ng/ml Old Range: 7.4 to 35.0 ng/ml Specimen Anatomical Collection Method Collection Time Receive d Time (Source) Location / / Volume Laterality Blood specimen 03/11/2012 2:43 PM 012 2:51 (specimen) EDT PM EDT Resulting Agency Comment Spec In Lab Teo Rapp MD CHEMISTRY ORDERABLES Performing Organization Address City/[facility]/ZIP [facility] Phon e Number [address] [facility] Rheumatoid factor, quant (03/11/2012 2:43 PM EDT) athologist Signature RF <10 <=14 IU/mL [facility]ERNER [facility] Specimen Anatomical Collection Method Collection Time Receive d Time (Source) Location / / Volume Laterality Blood specimen 03/11/2012 2:43 PM 012 2:51 (specimen) EDT PM EDT Resulting Agency Comment Spec In Lab Authorizing Provider Result Mannie Rapp MD IMMUNOLOGY ORDERABLES Performing Organization Address City/[facility]/ZIP Code Phon e Number [address] CERNER MILLENNIUM CK (03/11/2012 2:43 PM EDT) athologist Signature CK, Total 27 0 - 160 CERNER unit/L [facility] Specimen Anatomical Collection Method Collection Time Receive d Time (Source) Location / / Volume Laterality Blood specimen 03/11/2012 2:43 PM 012 2:51 (specimen) EDT PM EDT Resulting Agency Comment Spec In Lab Teo Rapp MD CHEMISTRY ORDERABLES Performing Organization Address City/[facility]/[place] [address] [facility] Tissue transglutaminase, IgA (03/11/2012 2:43 PM EDT) P athologist Signature TTG IgA Ab <4.0 <=3.9 u/ml CERNER MILLENNIUM Comment: Result Interpretation: Negative: ?<4 U/mL Weak Positive: ??4-10 U/mL Positive: ?>10 U/mL Specimen Anatomical Collection Method Collection Time Receive d Time (Source) Location / / Volume Laterality Blood specimen 03/11/2012 2:43 PM 012 8:14 (specimen) EDT AM EDT Resulting Agency Comment Spec In Lab Teo Rapp MD IMMUNOLOGY ORDERABLES Performing Organization Address City/State/[place] [address] CERNER MILLENNIUM Cardiolipin Antibody Screen (03/11/2012 2:43 PM EDT) athologist Signature Cardiolipin IgG <23 <=22 GPL CERNER unit(s) MILLENNIUM Comment: Ranges ? GPL ------- ? ------ Normal ?<23 Low Positive ? 23-35 Moderate Positive ?36 -50 High Positive ? >5 0 Cardiolipin IgM <11 <=10 MPL unit(s) CERNER MILLENNIUM Comment: Ranges ?MPL ----- ?----- Normal ?<11 Low Positive ? 11-20 Moderate Positive ?21 -30 High Positive ? >3 0 Specimen Anatomical Collection Method Collection Time Receive d Time (Source) Location / / Volume Laterality Blood specimen 03/11/2012 2:43 PM 012 8:14 (specimen) EDT AM EDT Resulting Agency Comment Spec In Lab Teo Rapp MD IMMUNOLOGY ORDERABLES Performing Organization Address [facility]/ZIP [facility] Phon e Number [address] CERNER MILLENNIUM JENNIFER (03/11/2012 2:43 PM EDT) P athologist Signature JENNIFER Neg Neg CERNER MILLENNIUM Specimen Anatomical Collection Method Collection Time Receive d Time (Source) Location / / Volume Laterality Blood specimen 03/11/2012 2:43 PM 012 8:06 (specimen) EDT AM EDT Resulting Agency Comment Spec In Lab Teo Rapp MD IMMUNOLOGY ORDERABLES Performing Organization Address City/[facility]/ZIP Code Phon e Number [address] CERNER MILLENNIUM (ABNORMAL) Protein Electrophoresis, serum (03/11/2012 2:43 PM EDT) Patholo gist Method Time Signature Total Prot 5.8 (L) 6.1 - 8.0 CERNER Elec gm/dL MILLENNIUM Albumin Elect 3.31 (L) 3.60 - 6.00 CERNER gm/dL MILLENNIUM Alpha1-Globul 0.25 0.10 - 0.30 CERNER in gm/dL MILLENNIUM Alpha2-Globul 0.92 (H) 0.40 - 0.90 CERNER in gm/dL MILLENNIUM Beta Globulin 0.74 0.50 - 1.00 CERNER gm/dL MILLENNIUM Gamma 0.58 0.50 - 1.30 CERNER Globulin gm/dL MILLENNIUM M1 Band None None CERNER Detected Detected MILLENNIUM gm/dL Scan See Note CERNER MILLENNIUM Comment: Please see scanned report in Ch art Review under the [facility] Heading. Specimen Anatomical Collection Method Collection Time Receive d Time (Source) Location / / Volume Laterality Blood specimen 03/11/2012 2:43 PM 012 2:51 (specimen) EDT PM EDT Narrative This result has an attachment that is no t available. Resulting Agency Comment Spec In Lab Teo Rapp MD CHEMISTRY ORDERABLES Performing Organization Address City/[facility]/[place] [address] CERNER MILLENNIUM Lyme IgG & IgM Antibody (03/11/2012 2:43 PM EDT) Analysis Performed At Patho logist Time Signature Lyme Screening Negative Negative CERNER Antibody MILLENNIUM Specimen Anatomical Collection Method Collection Time Receive d Time (Source) Location / / Volume Laterality Blood specimen 03/11/2012 2:43 PM 012 8:17 (specimen) EDT AM EDT Resulting Agency Comment Spec In Lab Teo Rapp MD IMMUNOLOGY ORDERABLES Performing Organization Address City/[facility]/[place] [address] CERNER MILLENNIUM (ABNORMAL) CBC (with Diff) (03/11/2012 2:43 PM EDT) P athologist Signature WBC 4.4 4.0 - 10.0 CERNER x10(3)/mcL MILLENNIUM RBC 3.88 (L) 3.93 - CERNER 5.22 MILLENNIUM x10(6)/mcL Hemoglobin 12.0 11.2 - CERNER 15.7 gm/dL MILLENNIUM Hematocrit 36.6 34.0 - CERNER 45.0 % MILLENNIUM MCV 94.3 (H) 79.0 - CERNER 94.0 fL MILLENNIUM MCH 30.9 26.6 - CERNER 32.2 pg MILLENNIUM MCHC 32.8 32.0 - CERNER 36.5 gm/dL MILLENNIUM Platelets 290 145 - 370 CERNER x10(3)/mcL MILLENNIUM RDWSD 50.0 (H) 35.0 - CERNER 46.0 fL MILLENNIUM RDWCV 14.6 (H) 10.9 - CERNER 14.4 % MILLENNIUM MPV 9.2 9.0 - 12.0 CERNER fL MILLENNIUM Specimen Anatomical Collection Method Collection Time Receive d Time (Source) Location / / Volume Laterality Blood specimen 03/11/2012 2:43 PM 012 2:51 (specimen) EDT PM EDT Resulting Agency Comment Spec In Lab Teo Rapp MD HEMATOLOGY ORDERABLES Performing Organization Address City/[facility]/[place] [address] CERNER MILLENNIUM (ABNORMAL) Hepatic Function Panel (03/11/2012 2:43 PM EDT) athologist Signature Total Protein 6.3 (L) 6.4 - 8.3 CERNER gm/dL MILLENNIUM Albumin 3.6 3.2 - 5.2 CERNER gm/dL MILLENNIUM AST 20 0 - 30 CERNER unit/L MILLENNIUM ALT 5 0 - 30 CERNER unit/L MILLENNIUM Alk Phos 101 40 - 104 CERNER unit/L MILLENNIUM Total 0.2 0.2 - 1.3 CERNER Bilirubin mg/dL MILLENNIUM Bili, Direct 0.1 0.0 - 0.3 CERNER mg/dL MILLENNIUM Specimen Anatomical Collection Method Collection Time Receive d Time (Source) Location / / Volume Laterality Blood specimen 03/11/2012 2:43 PM 012 2:51 (specimen) EDT PM EDT Resulting Agency Comment Spec In Lab Teo Rapp MD CHEMISTRY ORDERABLES Performing Organization Address City/[facility] [place] [address] CERNER MILLENNIUM (ABNORMAL) Basic Metabolic Panel (non-fasting) (03/11/2012 2:43 PM EDT) P athologist Signature Glucose Lvl 116 60 - 199 CERNER mg/dL MILLENNIUM Comment: Diabetes: >=200 mg/dL plus symp toms BUN 7 (L) 8 - 18 mg/dL CERNER MILLENNIUM Creatinine 0.71 0.70 - 1.20 mg/dL CERNER MILL ENNIUM Comment: Please note that the pediatric reference intervals supplied above were not validated at [facility]. Results from pediatri c patients should be interpreted in conjunction to the patient's age, height and muscle mass. Sodium 140 135 - 145 mmol/L CERNER BLANCA NIUM Potassium 2.4 (Critical) 3.5 - 5.0 mmol/L CERNER M ILLENNIUM Comment: Result rechecked. Called by: shahbaz, Read back by: dr rapp at, Date/Time:03/11/12 15:56. Please note: ??Patients with WBC >100,00 0 may have falsely elevated Potassium levels. ??For accurate Potassium quantif ication in these patients send serum separator tube (gold top) for subsequent determinations. ??Contact the Clinical Chemistry Laboratory if there are any qu estions. Chloride 102 98 - 107 mmol/L CERNER MILLENN IUM CO2 25 22 - 31 mmol/L CERNER MILLENNI UM Anion Gap 13 5 - 15 mmol/L CERNER MILLENNIU M Calcium 8.6 8.5 - 10.5 mg/dL CERNER BLANCA NIUM Estimated GFR >60 >=60 CERNER MILLENNIU M Comment: The National Kidney Disease Education Pr ogram (NKDEP) has recommended all laboratories report estimated GFR (eGFR) along with plasma creatinine measurements to assist you with recognit ion of early kidney disease. Caveats: ??Plasma creatinine should be a t steady-state (unchanged within the past week). For patient s multiply eGFR by 1.2. The MDRD equation was developed using patients be tween the ages of 18 and 70 years. ?? The MDRD equation has not been validated for patients < 18 years of age and should not be used to assess renal function in the pediatric population. ??The MDRD eGFR equation will also overestimate the true GFR of patients above the age of 70. ??This overestimation is variable bu t increases with age. At present, NKDEP does NOT recommend usi ng the MDRD equation for drug dosing purposes and pharmacists should continue to use their current dosing methods. In addition, numerical eGFR values great er than 60 ml/min/1.73 square meters should be treated as > 60, and not an ex act number due to greater inaccuracies at these higher values. Per NKDEP, they classify normal renal function as any GFR >60ml/min/1.73 square meters; chronic kidney disease wh en GFR <60, and renal failure when GFR <15. ??This calculation may not be valid for patients with atypical muscle mass (very lean or obese), acute renal failur e, and in patients with diabetic kidney disease. References: http://nkdep.nih.gov/resources/NKDEP_Sug gestn4Labs_0606_508.pdf http://www.kidney.org/professionals/kls/ pdf/faq_gfr.pdf Sheila K, Kristopher NA, Raquel AK, Geovanny TS, Lance AD, Liam AIDEN. Relative performance of the MDRD and CKD-EPI equa tions for estimating glomerular filtration rate among patients with vari ed clinical presentations. Clin J Am Soc Nephrol;6:1963-72. Specimen Anatomical Collection Method Collection Time Receive d Time (Source) Location / / Volume Laterality Blood specimen 03/11/2012 2:43 PM 012 2:51 (specimen) EDT PM EDT Resulting Agency Comment Spec In Lab Teo Rapp MD CHEMISTRY ORDERABLES Performing Organization Address City/State/ZIP Code Phon e Number [address] CERNER MILLENNIUM TSH (03/11/2012 2:43 PM EDT) athologist Signature TSH 0.56 0.27 - 4.20 CERNER mcIU/mL [facility] Specimen Anatomical Collection Method Collection Time Receive d Time (Source) Location / / Volume Laterality Blood specimen 03/11/2012 2:43 PM 012 2:51 (specimen) EDT PM EDT Resulting Agency Comment Spec In Lab Teo Rapp MD CHEMISTRY ORDERABLES Performing Organization Address City/State/ZIP Code Phon e Number [address] CERNER MILLENNIUM T4 (03/11/2012 2:43 PM EDT) athologist Signature T4, total 5.2 5.1 - 10.8 CERNER mcg/dL [facility] Comment: Reference Range: Cord Blood: ??6.9-14.4 mcg/dL Females: ??7.2-14.2 mcg/dL Pediatric ranges: ??Interpret with cauti on-ranges have not been verified Specimen Anatomical Collection Method Collection Time Receive d Time (Source) Location / / Volume Laterality Blood specimen 03/11/2012 2:43 PM 012 2:51 (specimen) EDT PM EDT Resulting Agency Comment Spec In Lab Teo Rapp MD CHEMISTRY ORDERABLES Performing Organization Address City/[facility]/ZIP Code Phon e Number [address] CERNER MILLENNIUM (ABNORMAL) Vitamin B12 (03/11/2012 2:43 PM EDT) athologist Signature Vitamin B-12 1977 (H) 207 - 974 CERNER pg/mL MILLENNIUM Specimen Anatomical Collection Method Collection Time Receive d Time (Source) Location / / Volume Laterality Blood specimen 03/11/2012 2:43 PM 012 2:51 (specimen) EDT PM EDT Resulting Agency Comment Spec In Lab Teo Rapp MD CHEMISTRY ORDERABLES Performing Organization Address City/[facility]/ZIP Code Phon e Number [address] CERNER MILLENNIUM documented in this encounter Visit Diagnoses Diagnosis MS (multiple sclerosis) - Primary Multiple sclerosis Dysphagia Dysphagia, unspecified Vitamin B12 deficiency Other B-complex deficiencies MS (multiple sclerosis) Multiple sclerosis Anxiety Anxiety state, unspecified documented in this encounter Care Teams Supervisor Powdered Sugar Relationship Specialty Start Date End Date Gris Bates MD PCP - General 01/17/[address] [place] [address] documented as of this encounter
--- OUTSIDE RECORDS SUMMARY | 2022-03-01 00:41 | XMS_ITS | Clinical Summary ---
:1945 Author Organization [place] [address] Care Team Providers Name Role Phone Gris Bates MD Primary Care Provider Allergies Active Allergy Reactions Severity Noted Date Comments Miconazole 05/16/2012 rash Penicillins rash Povidone-Iodine Rash Sulfa (Sulfonamide Antibiotics) rash Medications Medication Sig Dispensed Refills Start Date End Date Status Magnesium Gluconate Take 500 mg by 0 Active (MAGONATE) 500 mg mouth daily. tablet simvastatin (ZOCOR) 20 Take 20 mg by 0 Active mg tablet mouth nightly. Cyanocobalamin 100 Inject 1,000 mcg 0 Active mcg/mL Soln as directed every 30 days. interferon beta-1a Inject 30 mcg 0 Active (AVONEX) 30 mcg into the muscle injection every 7 days. Estradiol (VAGIFEM) 10 Place 10 mcg 0 Active mcg vaginal tablet vaginally 3 times daily as needed. acetaminophen Take by mouth 0 Ac tive (TYLENOL) 500 mg every 4 hours as tablet needed. Cholecalciferol, Take 1,000 Units 100 capsule 3 03/12/2012 Active Vitamin D3, (VITAMIN by mouth 2 times D) 1,000 unit Cap daily (with meals). tamsulosin (FLOMAX) Take 0.4 mg by 0 Active 0.4 mg capsule mouth daily. citalopram (CELEXA) 20 Take 20 mg by 0 Active mg tablet mouth daily. traZODone (DESYREL) Take 100 mg by 0 Active 100 mg tablet mouth nightly. ondansetron (ZOFRAN) 4 Take 4 mg by 0 Active mg tablet mouth every 8 hours as needed. fluconazole (DIFLUCAN) Take 150 mg by 0 Active 150 mg tablet mouth once. amitriptyline (ELAVIL) Take 25 mg by 0 Active 25 mg tablet mouth nightly. docusate sodium Take 100 mg by 0 Active (COLACE) 100 mg mouth 2 times capsule daily. dicyclomine (BENTYL) Take 1 capsule 120 capsule 5 06/02/2012 Active 10 mg capsule by mouth 4 times daily (before meals and nightly). potassium chloride Take 2 tablets 120 tablet 5 10/20/2012 Active (K-DUR/KLOR-CON) 10 by mouth 2 times mEq extended release daily (with tablet meals). NEXIUM 40 mg capsule TAKE ONE CAPSULE 180 capsule 3 01/14/2014 Active BY MOUTH TWICE A DAY Active Problems Problem Noted Date IBS (irritable bowel syndrome) 06/02/2012 Diplopia 05/20/2012 Overview: Small ET in side gaze Multiple sclerosis 03/11/2012 Vitamin B12 deficiency 03/11/2012 Overview: Has been supplemented Anxiety 03/11/2012 Memory loss 03/11/2012 Hypertension 03/11/2012 Dysphagia 03/11/2012 Overview: dysphagia and nausea status post Aníbal fundoplication Immunizations Name Administration Dates Next Due Influenza Vaccine, Whole 05/24/2006, 05/31/2005 Pneumococcal Polyvalent 23 06/16/1998 Td, adult 06/22/1999 Family History Medical History Relation Comments Glaucoma Neg Hx Macular Degeneration Neg Hx Retinal Detachment Neg Hx Social History Tobacco Use Types Packs/Day Years Used Date Current Every Day Smoker Cigarettes 0.7 Smokeless Tobacco: Never Used Alcohol Use Standard Drinks/Week Comments No 0 (1 standard drink = 0.6 oz pure alcoho l) Sex Assigned at Date Recorded Not on file Last Filed Vital Signs Vital Sign Reading Time Taken Comments Blood Pressure 120/54 06/02/2012 11:58 AM EDT Pulse 82 06/02/2012 11:58 AM EDT Temperature 36.5 ??C (97.7 ??F) 05/20/2012 4:12 PM EDT Respiratory Rate 20 06/02/2012 11:58 AM EDT Oxygen Saturation 100% 05/20/2012 4:28 PM EDT Inhaled Oxygen Concentration - - Weight 68.8 kg (151 lb 10.8 oz) 06/02/2012 11:58 AM EDT Height 162.6 cm (5' 4) 06/02/2012 11:58 AM EDT Body Mass Index 26.04 06/02/2012 11:58 AM EDT Plan of Treatment Health Maintenance Due Date Last Done Comments Covid-19 Vaccine (#1) 1950 Hepatitis C Screening 1963 Tdap adult 1964 Zoster vaccine (1 of 2) 1995 Advance Directive 2000 Tetanus vaccine 06/22/2009 06/22/1999 Bone Density Scan 2010 Pneumoccocal Vaccine: 65+ (1 - PCV) 2010 06/16/1998 Influenza (Flu) vaccine (1 of - 04/12/2022 05/24/2006, Influenza standard series) Advance Directives Documents on File Type Date Recorded Patient Technician Assistant Explanati on Advance Directives and Living 10/11/2010 10:32 AM Will Care Teams Attache Relationship Specialty Start Date End Date Gris Bates MD PCP - General 01/17/[address] [place] [address]
--- OUTSIDE RECORDS SUMMARY | 2022-03-01 00:41 | XMS_ITS | Encounter Summary ---
:1945 Author Organization [facility] [place] [address] Care Team Providers Name Role Phone Gris Bates MD Primary Care Provider Encounter Details Date Type Department Care Team Description 05/20/2012 Clinical Support [facility] [place] [phone] Social History Tobacco Use Types Packs/Day [...] filedocumented in this encounter Care Teams Insurance Claim Approver Relationship Specialty Start Date End Date Gris Bates MD PCP - General 01/17/[address] [place], [place] [id number] documented as of this encounter
--- OUTSIDE RECORDS SUMMARY | 2022-03-01 00:43 | XMS_ITS | Encounter Summary ---
:1945 Author Organization [facility] Address [address] [place] [address] Care Team Providers Name Role Phone Unavailable Primary Care Provider Unavailable Encounter Details Date Type Department Care Team Description 03/12/2008 Before [facility] Visit Maple conversion DO Rios (Maple) [address] [facility] [address] [place] [id number] [address] [address] (Wo rk) Social History Tobacco Use Types Packs/Day Years Used Date Never Assessed Sex Assigned at Date Recorded Not on file documented as of this encounter Plan of Treatment Not on filedocumented as of this encounter Procedures Procedure Name Priority Date/Time Associated Diagnosis Comme [facility] SURGICAL PATHOLOGY Routine 03/12/2008 0:00 EDT Re sults for this procedure are i n the results section. documented in this encounter Results SURGICAL PATHOLOGY (03/12/2008 0:00 EDT) Pathologist [facility] Pathology SURGICAL PATHOLOGY REPORT ? [facility] Report: Reports generated via electr [employer] interface contain original data; ? LAB however they are lacking the format of the original report. ? Caution should be taken when reading/interpreting unformatted reports. ? Name: ? JULISSA, MART VIOLA ? Accession #: ? [id number] ? : ? 1945 (Age: 62) ??F ? Collec t Date: ? 03/12/2008 ? Location: ? [facility] ? R eceive Date: ? 03/12/2008 ? Provider: RIOS RAYA SON DO ? Copy to: JOHN YE MD ? Final Pathologic Diagnosis: ? A. ?Stomach, an trum, biopsies: ? 1. ?Reactive ga stropathy. ? 2. ? No Helicobacter pyl tony-like microorganisms identified on H&E-stained ? sections (B2). ? B. ?Esophagus, distal, biopsies: ? 1. ?Squamocolum laura mucosa with focally active mild chronic inflammation. 2. ? Occasional intraepi thelial eosinophils (15 maximum average/HPF) and focal acute esophagitis. ??See com ment. ? 3. ? Immunostaining for Helicobacter pylori is negative (B2). ??See comment. ?? 4. ? PAS-amylase stain n egative for fungi. ? C. ?Esophagus, mid, biopsy: ? 1. ?Squamous mu cosa with accentuation of rete ridges, basal cell ? hyperplasia, and intraepithe lial lymphocytes. ? 2. ? No eosinophil infil trate identified. ? D. ?Esophagus, proximal, biopsy: ? 1. ?Squamous mu cosa with focal acute esophagitis and occasional ? intraepithelial eosinophils (10 maximum average/HPF). ? 2. ? PAS-amylase stain p ositive for rare hyphae morphologically consistent ? with Mary in detached epi thelium. ??See comment. ? Comment: ? Features of reactive gastropathy, such as can be seen in the setting of ? chemically-induced mucosal i njury, are seen in (A). ??Definitive goblet cell ? intestinal metaplasia is not present in the esophageal specimens. ??A hyphal form consistent with Mary is p resent in a detached piece of epithelium in the ? proximal esophageal biopsy ( D). ??In addition to mild acute esophagitis, the ? esophageal biopsies demonstr ate eosinophilic inflammation, which is likely ? related to gastroesophageal reflux. ??However, correlation with the clinical and endoscopic impression is nec essary. ??Immunohistochemical stain for H. pylori ? (polyclonal, [facility]) is performed on (B2). ??Positive and negative controls ?? stained appropriately. ??(Dr Elvira Smith)/[facility] ? NOTE: ??One or more of the reagents used in immunohistochemical testing in this case may not have been cleared or approved by the U.S. Food and Drug ? Administration (FDA). ??The FDA has determined that such clearance or approval is not necessary. ??These tests are used for clinical purposes. ??They should not be regarded as investigational or for research. ??These reagents' ??performance ? characteristics have been de termined by [facility]. ??This ? laboratory is certified unde r the Clinical Laboratory Improvement Amendments of 1988 (CLIA-88) as qualified to perform high complexity clinical laboratory ? testing. ? Document reviewed and electr onically signed by: ? Liza Smith MD ? Report ??Date: 03/17/2008 19 :25 ? By the signature above, the attending physician certifies that he/she has ? personally conducted a gross and/or microscopic examination of the described ? specimens and rendered or co nfirmed the above diagnosis. ? Specimen(s) Received: ? A. ?Bx antrum ? B. ? Distal esophagus ? C. ? Mid esophagus ? D. ? Proximal esophagus ? Clinical History: ? Epigastric pain ? Gross Description: ? Received in [facility]' s fixative labelled Julissa and bx antrum are ?? two adams-pink tissue fragment s, one which measures 0.8 x 0.2 x 0.2 cm. ??The other measures 0.3 x 0.3 x 0.2 cm. ??The specimen is submitted entirely as (A). ? Received in [facility]'s fixat carlene labelled Julissa and distal esophagus are four adams-pink tissue fragmen ts which range from 0.3 x 0.3 x 0.3 cm to 0.5 x 0.3 x 0.2 cm. ??The specimen is submitted entirely as (B1) and (B2). ? Received in [facility]'s fixat carlene labelled Julissa and mid esophagus is one adams-pink tissue fragment whi ch measures 0.3 x 0.2 x 0.2 cm. Submitted as (C). ? Received in [facility] fixat carlene labelled Julissa and proximal esophagus ?? is one adams-pink tissue fragm ent measuring 0.6 x 0.3 x 0.2 cm. ??Submitted as (D). (Dr. Boone)/mpl ? End of Report ? Specimen Performing Organization Address City/State/ZIP Code Phon e Number [facility] [address] [place] [address] SERVICES [facility] [address] [place] [address] documented in this encounter Visit Diagnoses Not on filedocumented in this encounter
--- OUTSIDE RECORDS SUMMARY | 2022-03-01 00:43 | XMS_ITS | Encounter Summary ---
:1945 Author Organization [facility] Address [address] [place] [address] Care Team Providers Name Role Phone Thomas Barnes MD Primary Care Provider Unavailable Encounter Details Date Type Department Care Team Description 12/25/2005 Results Only [facility] - Joselito Galdamez MD [address] [place] [phone] (Wo rk) Social History Tobacco Use Types Packs/Day Years Used Date Never Assessed Sex Assigned at Date Recorded Not on file documented as of this encounter Plan of Treatment Not on filedocumented as of this encounter Procedures Procedure Name Priority Date/Time Associated Diagnosis Comme nts SURGICAL PATHOLOGY Routine 12/25/2005 0:00 EDT Re sults for this procedure are i n the results section. documented in this encounter Results SURGICAL PATHOLOGY (12/25/2005 0:00 EDT) Pathology Report: SURGICAL PATHOLOGY REPORT [facility] Reports generated via electronic interface contain tony ginal data; LAB however they are lacking the format of the original re port. Caution should be taken when reading/interpreting unfo rmatted reports. Name: ? BRITTANIE COSTA ? Accession #: ? [id number] ? : ? 1945 (Age: 60) ??F ? Collect Date: ? 12/25/2005 ? Location: ? [facility] ? Receive Date: ? 006 ? Provider: JOSELITO ROBERTS MD Copy to: NARAYAN SIERRA MD ? Final Pathologic Diagnosis: ? Soft tissue, right knee, lateral popliteal cyst , excision: - Features consistent with synovial cyst. ??See commen t. Comment: ? The sections show synovium replaced with fibrou s tissue and focal inflammation and regenerative changes. ??These f eatures are consistent with a synovial cyst. ??This case was reviewed at intradepart mental consultation conference. The distinction between a ganglion cyst and a synovial cyst in this case is difficult, although a synovial cyst is favored . (Dr. Carpenter)/rust Document reviewed and electronically signed by: QIAN CARPENTER MD Report ??Date: 12/27/2005 14:36 By the signature above, the attending physician certif ies that he/she has personally conducted a gross and/or microscopic examin ation of the described specimens and rendered or confirmed the above diagnosi s. Specimen(s) Received: ? Lateral popliteal cyst right knee Clinical History: ? Ganglion cyst rather adams synovial cyst from knee; lateral popliteal cyst right knee exc. Gross Description: ? Received in formalin labelled De sjardins and lateral popliteal right knee cyst is a 4.7 x 3.2 x 1.4 cm aggregate of adams-white membranous glistening tissue admixed with minimal rubbery adams-white fibrous tissue. ??A 1.6 cm in greatest dimension saccular component of mucus is adhe rent to the membranous tissue. ??Braider Tender section to include mucus comp artment adherent to membranous tissue, as well a s fibrous tissue are submitted as (A1) ??(A2). ??(Jermain Olivas)/[facility] End of Report Specimen Performing Organization Address City/State/ZIP Code Phon e Number [facility] [address] [place] [id number] SERVICES [facility] [address] [place] [address] documented in this encounter Visit Diagnoses Not on filedocumented in this encounter Care Teams Facilities Clerk Relationship Specialty Start Date End Date Thomas Barnes MD PCP - General 07/13/09 04/22/13 documented as of this encounter
--- OUTSIDE RECORDS SUMMARY | 2022-03-01 00:43 | XMS_ITS | Encounter Summary ---
:1945 Author Organization [facility] Address [address] [place] [address] Care Team Providers Name Role Phone Thomas Barnes MD Primary Care Provider Unavailable Encounter Details Date Type Department Care Team Description 02/03/2007 Results Only [facility] - Narayan Arias MD conversion [address] [place] [address] Social History Tobacco Use Types Packs/Day Years Used Date Never Assessed Sex Assigned at Date Recorded Not on file documented as of this encounter Plan of Treatment Not on filedocumented as of this encounter Procedures Procedure Name Priority Date/Time Associated Diagnosis Comme nts CYTOPATHOLOGY Routine 02/03/2007 0:00 EDT Results for this procedure are i n the results section . documented in this encounter Results CYTOPATHOLOGY (02/03/2007 0:00 EDT) Pathology Report: CYTOPATHOLOGY REPORT [facility] Reports generated via electronic interface contain tony ginal data; however they are lacking the format of the original re port. Caution should be taken when reading/interpreting unfo rmatted reports. Name: ? LORIE COSTA ? Accession #: ? [id number] : ? 1945 (Age: 61) ??F ?Collect Date: ? 01/11 Location: ? [facility] ? Receive Date : ? 02/04/2007 Provider: ?NARAYAN SIERRA MD Copy to: ? Specimen/Source: ?ThinPrep Pap Test, E ndocervix, processed on [employer] ThinPrep Imaging System, with manual evaluation Last Menstrual Period: ? Hormonal/Contraceptive Status: ? Yes: Hormone Treatment History: ? Hysterectomy Other: ? HPVA - HPV testing requested if ASC-US on the current ThinPrep Pap test. ? SPECIMEN ADEQUACY ? Satisfactory for Evaluation - transformation zone component absent GENERAL CATEGORIZATION ? Negative for Intraepithelial Lesion or Malignan cy INTERPRETATION ? Reactive cellular hipolito nges associated with inflammation present (includes repair). ? Document reviewed and electronically signed by: ? SUZY YBARRA MD ? Report Date: ??02/13/2007 10:20 End of Report Specimen Performing Organization Address City/State/ZIP Code Phon e Number [facility] [address] [place] [address] SERVICES [facility] [address] [place] [address] documented in this encounter Visit Diagnoses Not on filedocumented in this encounter Care Teams Liquid Yeast Supervisor Relationship Specialty Start Date End Date Thomas Barnes MD PCP - General 07/13/09 04/22/13 documented as of this encounter
--- OUTSIDE RECORDS SUMMARY | 2022-03-01 00:43 | XMS_ITS | Encounter Summary ---
:1945 Author Organization [facility] Address [address] [place] [address] Care Team Providers Name Role Phone Thomas Barnes MD Primary Care Provider Unavailable Encounter Details Date Type Department Care Team Description 11/15/2004 Results Only [facility] - Narayan Moore MD conversion [address] [place] [phone] Social History Tobacco Use Types Packs/Day Years Used Date Never Assessed Sex Assigned at Date Recorded Not on file documented as of this encounter Plan of Treatment Not on filedocumented as of this encounter Procedures Procedure Name Priority Date/Time Associated Diagnosis Comme [facility] SURGICAL PATHOLOGY Routine 11/15/2004 0:00 EDT Re sults for this procedure are i n the results section. documented in this encounter Results SURGICAL PATHOLOGY (11/15/2004 0:00 EDT) Pathology Report: SURGICAL PATHOLOGY REPORT [facility] Reports generated via electronic interface contain tony ginal data; LAB however they are lacking the format of the original re port. Caution should be taken when reading/interpreting unfo rmatted reports. Name: ? BRITTANIE COSTA ? Accession #: ? [id number] ? : ? 1945 (Age: 59) ??F ? Collect Date: ? 11/15/2004 ? Location: ? [facility] ? Receive Date: ? 005 ? Provider: UMA TERRY MD Copy to: NARAYAN SIERRA MD ? Final Pathologic Diagnosis: A. ?Stomach, antrum, biopsy: 1. ?No specific pathologic features. 2. ?No evidence of Helicobacter pylori-like organisms on routine H+E stain. B. ?Gastroesophageal junction, biopsy: 1. ?Squamous and columnar-type gastric mu cosa with focal acute inflammation. 2. ?PAS stain n egative for invasive fungal elements. ?? See comment. 3. ?Jacinta sta in negative for Helicobacter pylori-like organisms. Comment: ? The PAS stain performed on the ga stroesophageal specimen reveals fungal spore forms but no invasive hyphae. ??These findings m ay represent oral contamination. ??The PAS and Jacinta stain controls pe rformed appropriately. (Dr. Gresham) Document reviewed and electronically signed by: SUZY GRESHAM MD Report ??Date: 11/17/2004 15:42 By the signature above, the attending physician certif ies that he/she has personally conducted a gross and/or microscopic examin ation of the described specimens and rendered or confirmed the above diagnosi s. Specimen(s) Received: A. ?Bx antrum B. ?Bx GE junction Clinical History: ? Gastroscopy; PMH; epigastric discomfort; Fabian procedure in past Gross Description: ? Received in Hollande' s fixative labelled Dejardins and antrum bx is a adams-pink 0.3 x 0.2 x 0.2 cm soft tissue fragment. ??Th e specimen is entirely submitted as (A). Received in Hollande's fixative labelled Julissa and GE junction is a adams-pink 0.3 x 0.2 x 0.2 cm soft tissue fragment. ??Th e specimen is entirely submitted as (B). ??(Stepan Mendoza)/[facility] End of Report Specimen Performing Organization Address City/State/ZIP Code Phon e Number [facility] [address] [place] [address] SERVICES [facility] [address] [place] [address] documented in this encounter Visit Diagnoses Not on filedocumented in this encounter Care Teams Machine Stuffer Relationship Specialty Start Date End Date Thomas Barnes MD PCP - General 07/13/09 04/22/13 documented as of this encounter
--- OUTSIDE RECORDS SUMMARY | 2022-03-01 00:43 | XMS_ITS | Encounter Summary ---
:1945 Author Organization [facility] Address [address] [place] [address] Care Team Providers Name Role Phone Thomas Barnes MD Primary Care Provider Unavailable Encounter Details Date Type Department Care Team Description 09/02/2002 Results Only [facility] - Joselito Galdamez MD [address] [place] [phone] (Wo rk) Social History Tobacco Use Types Packs/Day Years Used Date Never Assessed Sex Assigned at Date Recorded Not on file documented as of this encounter Plan of Treatment Not on filedocumented as of this encounter Procedures Procedure Name Priority Date/Time Associated Diagnosis Comme nts SURGICAL PATHOLOGY Routine 09/02/2002 0:00 EST Re sults for this procedure are i n the results section. documented in this encounter Results SURGICAL PATHOLOGY (09/02/2002 0:00 EST) Pathology Report: SURGICAL PATHOLOGY REPORT [facility] Reports generated via electronic interface contain tony ginal data; LAB however they are lacking the format of the original re port. Caution should be taken when reading/interpreting unfo rmatted reports. Name: ? BRITTANIE COSTA ? Accession #: ? [id number] ? : ? 1945 (Age: 56) ??F ? Collect Date: ? 09/02/2002 ? Location: ? [facility] ? Receive Date: ? 003 ? Provider: JOSELITO ROBERTS MD Copy to: CHRIS SIERRA MD ? Final Pathologic Diagnosis: ? Soft tissue, 4th finger, left, excision: 1. ?Nodular fib romatosis consistent with Dupuytren' s contracture. 2. ?Benign lobulated adipose tissue and p acinian nerve tissue. Document reviewed and electronically signed by: ALLIE TORRES MD Report ??Date: 09/07/2002 16:38 By the signature above, the attending physician certif ies that he/she has personally conducted a gross and/or microscopic examin ation of the described specimens and rendered or confirmed the above diagnosi s. Specimen(s) Received: ? Dupuytren' s fascia L ring finger Clinical History: ? Dupuytren' s fascia L ring finger Gross Description: ? Received in formalin labelled Julissa and Dupuytren' s fascia L ring finger is a 2.5 x 0.8 x 0.4 cm portion of pink, soft tissue with adherent adipose tissue. ??No circumscribed lesions or ma sses are grossly evident. ??A contact center representative portion is submitted in a cassette. ??( Marlena Collins/[facility] End of Report Specimen Performing Organization Address City/State/ZIP Code Phon e Number [facility] [address] [place] [address] SERVICES [facility] [address] [place] [address] documented in this encounter Visit Diagnoses Not on filedocumented in this encounter Care Teams Insurance Sales Professional Relationship Specialty Start Date End Date Thomas Barnes MD PCP - General 07/13/09 04/22/13 documented as of this encounter
--- OUTSIDE RECORDS SUMMARY | 2022-03-01 00:43 | XMS_ITS | Clinical Summary ---
:1945 Author Organization [facility] Address [address] [place] [address] Care Team Providers Name Role Phone Gris Bates MD Primary Care Provider Social History Tobacco Use Types Packs/Day Years Used Date Never Assessed Sex Assigned at Date Recorded Not on file Plan of Treatment Health Maintenance Due Date Last Done Comments Fall Risk Screening 2010 Care Teams Camp Recreation Specialist Relationship Specialty Start Date End Date Gris Bates MD PCP - General 04/23/[address] [place] [phone]
--- OUTSIDE RECORDS SUMMARY | 2022-03-01 00:43 | XMS_ITS | Encounter Summary ---
:1945 Author Organization [facility] Address [address] [place] [address] Care Team Providers Name Role Phone Thomas Barnes MD Primary Care Provider Unavailable Encounter Details Date Type Department Care Team Description 2000 Results Only [facility] - James Moore MD conversion [address] [place] [phone] Social History Tobacco Use Types Packs/Day Years Used Date Never Assessed Sex Assigned at Date Recorded Not on file documented as of this encounter Plan of Treatment Not on filedocumented as of this encounter Procedures Procedure Name Priority Date/Time Associated Diagnosis Comme [facility] SURGICAL PATHOLOGY Routine 2000 0:00 EST Re sults for this procedure are i n the results section. documented in this encounter Results SURGICAL PATHOLOGY (2000 0:00 EST) Pathology Report: SURGICAL PATHOLOGY REPORT [facility] Reports generated via electronic interface contain tony ginal data; LAB however they are lacking the format of the original re port. Caution should be taken when reading/interpreting unfo rmatted reports. Name: ? BRITTANIE COSTA ? Accession #: ? [id number] ? : ? 1945 (Age: 55) ??F ? Collect Date: ? 2000 ? Location: ? [facility] ? Receive Date: ? 001 ? Provider: UMA TERRY MD Copy to: CHRIS SIERRA MD ? Final Pathologic Diagnosis: A. ?Stomach, antrum, biopsy: 1. ?Antral-type mucosa with mild chronic gastritis and features suggestive of chemical gastritis. 2. ?Jacinta sta in negative for Helicobacter pylori-like organisms. B. ?Gastroesophageal junction, biopsy: 1. ?Squamous and gastric mu cosa with chronic active gastritis and reactive epithelial changes. 2. ?No intestinal metaplasia identified. 3. ?Jacinta sta in negative for Helicobacter pylori-like organisms. Document reviewed and electronically signed by: QIAN CARPENTER MD Report ??Date: 09/11/2000 09:32 By the signature above, the attending physician certif ies that he/she has personally conducted a gross and/or microscopic examin ation of the described specimens and rendered or confirmed the above diagnosi s. Specimen(s) Received: A. ?Bx antrum- bx B. ?EG junction- bx Clinical History: ? GI pain Gross Description: ? Received in Hollande' s fixative labelled Julissa and 1 antral bx are two adams-figueredo, irregular, soft tissues measuring 0.2 x 0.2 x 0.2 cm and 0.3 x 0.2 x 0.2 cm. ??The specimen is entirely submitted as (A). Received in Hollande' s fixative labelled Desja rdins and 2 EG junction bx are three adams-figueredo, irregula r, soft tissues ranging from 0.2 x 0.1 x 0.1 cm and 0.2 x 0.2 x 0.2 cm. ??The specimen is entirely submitt ed as (B). ??(Stepan Mendoza)/[facility] End of Report Specimen Performing Organization Address City/State/ZIP Code Phon e Number [facility] [address] [place] [address] SERVICES [facility] [address] [place] [address] documented in this encounter Visit Diagnoses Not on filedocumented in this encounter Care Teams Label Folder Relationship Specialty Start Date End Date Thomas Barnes MD PCP - General 07/13/09 04/22/13 documented as of this encounter
--- OUTSIDE RECORDS SUMMARY | 2022-03-01 00:43 | XMS_ITS | Encounter Summary ---
:1945 Author Organization [facility] Address [address] [place] [address] Care Team Providers Name Role Phone Unavailable Primary Care Provider Unavailable Encounter Details Date Type Department Care Team Description 07/06/2009 Orders Only [facility] Arsen Gamez MD Laboratory Services - [address] [place] [address] [address] [facility] [place] [address] [phone] Social History Tobacco Use Types Packs/Day Years Used Date Never Assessed Sex Assigned at Date Recorded Not on file documented as of this encounter Plan of Treatment Not on filedocumented as of this encounter Procedures Procedure Name Priority Date/Time Associated Diagnosis Comme [facility] SURGICAL PATHOLOGY Routine 07/06/2009 0:00 EST Re sults for this procedure are i n the results section. documented in this encounter Results SURGICAL PATHOLOGY (07/06/2009 0:00 EST) Pathology Report: SURGICAL PATHOLOGY REPORT ? [facility] Reports generated via electr [employer] interface contain original data; ? LAB however they are lacking the format of the original report. ? Caution should be taken when reading/interpreting unformatted reports. ? Name: ? JULISSA, MART VIOLA ? Accession #: ? [id number] ? : ? 1945 (Age: 63) ??F ? Collec t Date: ? 07/06/2009 ? Location: ? [facility] ? R eceive Date: ? 07/11/2009 ? Provider: SANDI GAMEZ MD ? Copy to: JOHN YE MD ? Final Pathologic Diagnosis: ? Terminal ileum, segme ntal resection: ? 1. ?Mild ischem ic mucosal changes. ? 2. ? Fibrinous serositis . ? 3. ? Reactive lymphoid f ollicular hyperplasia. ? Document reviewed and electr onically signed by: ? Mikayla Jaramillo MD ? Report ??Date: 07/14/2009 15 :03 ? By the signature above, the attending physician certifies that he/she has ? personally conducted a gross and/or microscopic examination of the described ? specimens and rendered or co nfirmed the above diagnosis. ? Specimen(s) Received: ? Terminal ileum ? Clinical History: ? SBO ? Gross Description: ? Received in formalin labelled Julissa, Lorie and colon is an ? unoriented, 24.0 cm in lengt h by 3.5 cm in average diameter portion of small ? bowel with two stapled ends. ??The serosa is diffusely hyperemic. ??There is a 1.5 cm in length portion of smal l bowel which is narrowed to 2.0 cm in diameter. ? The narrowing measures 7.0 c m from the nearest stapled margin. ??In this region, the mucosa is effaced and hy peremic. ??The remaining mucosa is adams and ? unremarkable. ??The bowel wa ll averages 0.3 cm in thickness. ??Serial sectioning ?? reveals no masses or diverti cula. ??Pocket Cutter sections are submitted as ? follows: ? BLOCK TIERNEY ? A1,A2 ?Unorient ed margins adjacent to staple lines ? A3 ?Cross secti on of narrowed region ? A4 ?Two represe ntative sections of ischemic mucosa to normal ? A5 ?Representat carlene cross section of normal small bowel ? (Dr. Munson)/[facility] ? End of Report ? Specimen Performing Organization Address City/State/ZIP Code Phon e Number [facility] [address] [place] [address] SERVICES [facility] [address] [place] [address] documented in this encounter Visit Diagnoses Not on filedocumented in this encounter
--- NOTE | 2022-03-01 07:30 | DI.CT_ITS ---
Exam(s) CT CHEST WO EXAM: CT CHEST WO CLINICAL HISTORY: Abnormal chest x-ray, chronic cough, R05.3, R93.89. TECHNIQUE: Multi planar reconstructions were performed. CONTRAST MATERIAL: None COMPARISON: CR CHEST 2 VIEWS PA,LAT from 01/25/[address] ABDOMEN PELVIS WO from 12/06/2018 CR XR CHEST 2V PA LATERAL from 02/19/2022 FINDINGS: CHEST: LUNGS: There is a round well-defined 12 x 12 millimeter noncalcified nodule in the left lower lobe. There is also very faint 4 millimeter nodular infiltrate more peripherally in the left lower lobe. M ore superiorly there is a calcified 5 millimeter granuloma in the apical posterior segment of the lef t upper lobe. Another slightly smaller benign calcified granuloma is seen slightly higher up in the left upper lobe. In the right lung base there is a 2 millimeter subpleural benign-appearing nodule. This may be a sma ll granuloma. There is also a 3 millimeter calcified granuloma in the posterior segment of the right upper lobe. Is platelike atelectasis in the lingular segment of the left lung, correspond to what is seen on rece nt chest radiograph. No confluent infiltrates. No pleural effusions. MEDIASTINUM: There is no obvious hilar nor mediastinal adenopathy. Visualized thyroid unremarkable.No obvious axillary adenopathy CARDIAC: Heart size is normal. There is a small pericardial effusion. Thickness is 5 millimeters.Ca liber of the thoracic aorta is within normal limits. VISUALIZED UPPER ABDOMEN:Thickened hypodense bilateral adrenal glands, probably adenomas. Somewhat b lurred due to motion artifact. No splenomegaly. OSSEOUS: No significant osseous lesions.. IMPRESSION: 1. In addition to numerous small benign-appearing calcified granulomas bilaterally, there is a 12 x 1 2 millimeter round but noncalcified nodule in the left lower lobe superior segment. This exhibits sm ooth margins without spiculation. Nevertheless requires follow-up with repeat CT scan in 3 months. There are no pleural effusions 2. No hilar nor mediastinal adenopathy. 3. 5 millimeter thick pericardial effusion noted. Heart size normal RADIATION DOSE DELIVERED: 539mGy.cm Total DLP DATA REPOSITORY: All CT scans at this facility are submitted to the National Radiology Data Registry (NRDR) Dose Index Registry (DIR) with the [employer] (ACR). RADIATION OPTIMIZATION: All CT scans at this facility use at least one of these dose optimization te chniques: automated exposure control; mA and/or kV adjustment per patient size (includes targeted exa ms where dose is matched to clinical indication); or iterative reconstruction.
== END ==
PROVIDERS: PCP Family Medicine; Visit Provider Family Medicine
DX: R05.3 Chronic cough (principal); R91.8 Other nonspecific abnormal finding of lung field; I31.3 Pericardial effusion (noninflammatory); R91.1 Solitary pulmonary nodule
CPT/HCPCS: 36415; 71250; 80048; 80061; 82607

== ENCOUNTER 2022-03-01 01:37 | Outpatient (CLI) | payer MEDICARE, MEDICAID, SELFPAY ==
[2022-03-01 12:26] LABS: BUN 13 mg/dL (7-18); CREATININE 1.1 mg/dL (0.55-1.02); Calculated LDL 66 mg/dL (<100); Chloride 102 mmol/L (98-107); Cholesterol 160 mg/dL (<200); Estimated GFR 48.29 (mL/min/1.73m2); Glucose 141 mg/dL (74-106); HDL Cholesterol 45 mg/dL (40-60); Potassium 3.8 mmol/L (3.5-5.1); Sodium 139 mmol/L (136-145); Triglyceride 247 mg/dL (<150); Vitamin B12 491 pg/mL (193-986)
== END 2022-03-01 01:38 | disposition home or self-care (01) ==
LOC: LBO 01:38
PROVIDERS: PCP Family Medicine; Visit Provider Family Medicine
DX: E53.8 Deficiency of other specified B group vitamins (principal); E11.9 Type 2 diabetes mellitus without complications
CPT/HCPCS: 36415; 80048; 80061; 82607

== ENCOUNTER 2022-03-01 11:14 | Outpatient (CLI) | payer MEDICARE, MEDICAID, SELFPAY | END 2022-03-01 11:15 | disposition home or self-care (01) | LOC: LBO 11:15 | PROVIDERS: PCP Family Medicine; Visit Provider Family Medicine ==

== ENCOUNTER 2022-03-27 18:56 | Outpatient (REF) | payer MEDICARE, MEDICAID, SELFPAY ==
[2022-03-27 18:28] LABS: Bilirubin Small (Negative); Blood Negative (Negative); Clarity Clear (Clear); Glucose Negative (Negative); Ketones Trace mg/dL (Negative); Leukocyte Esterase Small (Negative); Nitrite Negative (Negative); Specific Gravity >= 1.030 (1.005-1.025); Urobilinogen 0.2 EU/dL (Up TO 0.2); pH 5.5 (5-8)
[2022-03-27 18:56] LABS: Bacteria Many HPF (Negative); C & S Indicated? No/Sq. Contamination; Casts Negative LPF (Negative); Crystals Many Calcium Oxalate HPF (Negative); Epithelial Cells Many HPF (Negative); Mucus Negative (Negative); Other Cells Negative (Negative); RBC Negative HPF (0-2); WBC >50 HPF (0-5)
== END 2022-03-27 18:57 | disposition home or self-care (01) ==
LOC: LBO 18:56
PROVIDERS: PCP Family Medicine; Visit Provider Family Medicine
DX: R35.0 Frequency of micturition (principal)
CPT/HCPCS: 81003; 81015

== ENCOUNTER → 2022-06-06 01:59 | Outpatient (CLI) | payer MEDICARE, MEDICAID, SELFPAY ==
--- NOTE | 2022-06-06 06:30 | DI.CT_ITS ---
Exam(s) CT CHEST WO EXAM: CT CHEST WO CLINICAL HISTORY: f/u prior CT,solitary lung nodule, r91.1 TECHNIQUE: CT examination of the chest was performed with intravenous infusion of 100 cc of Omnipaqu e 350. COMPARISON: CR CHEST 2 VIEWS PA,LAT from 01/25/[address] ABDOMEN PELVIS WO from 06/07/[address] ABDOMEN PELVIS WO from 12/06/[address] CHEST WO from 03/01/2022 FINDINGS: There are multiple calcified pulmonary nodules. There is a stable 4 millimeter right apical pulmonar y nodule, unchanged from examination March 01.a previously described nodule which measures about 14 millimeters mean diameter on today's examination, slightly increased from 12/13 millimeters mean diam eter on the prior study. Note is made that this nodule is predominantly of fat attenuation, with andreas n attenuation around -120 Hounsfield units. The findings as described are most suggestive of pulmona ry hamartoma. Malignancy not absolutely excluded. No calcification identified in this lesion.. The re is no evidence of pleural effusion. There is no evidence of pulmonary embolic disease. There is unremarkable appearance of the thoracic aorta and major branches with no evidence of aneurysm or dissection. There is no mediastinal or hilar adenopathy. Tracheobronchial tree appears intact. No axillary or supraclavicular adenopathy. Visualized portions of the liver, spleen, adrenals, and kidneys are unremarkable. No abnormality seen involving the bony thorax. IMPRESSION: Slight interval growth of a fat attenuation left lower lobe intrapulmonary nodule, the findings are m ost consistent with pulmonary hamartoma period follow-up chest CT recommended in 12 months.. RADIATION DOSE DELIVERED: 547.25mGy.cm Total DLP 547.25mGy.cm Total DLP !Error CTDIvol DATA REPOSITORY: All CT scans at this facility are submitted to the National Radiology Data Registry (NRDR) Dose Index Registry (DIR) with the [employer] (ACR). RADIATION OPTIMIZATION: All CT scans at this facility use at least one of these dose optimization te chniques: automated exposure control; mA and/or kV adjustment per patient size (includes targeted exa ms where dose is matched to clinical indication); or iterative reconstruction.
== END ==
PROVIDERS: PCP Family Medicine; Visit Provider Family Medicine
DX: R91.1 Solitary pulmonary nodule (principal)
CPT/HCPCS: 71250

== ENCOUNTER → 2022-06-22 00:07 | Outpatient (CLI) | payer MEDICARE, MEDICAID, SELFPAY ==
--- NOTE | 2022-06-22 13:50 | DI.RAD_ITS ---
Exam(s) XR THORACIC SPINE COMPLETE EXAM: XR THORACIC SPINE COMPLETE CLINICAL HISTORY: acute thoracic back pain, M54.6, midline pain. TECHNIQUE: 2D digital imaging was performed. COMPARISON: CR THORACIC SPINE from 01/25/2014 FINDINGS: Four views: There is no evidence of compression fracture or listhesis. Some degenerative disc disease is noted a nd also chronic disc space narrowing in the lower cervical spine at C5-6 and C6-7 levels is also evid ent on the uppermost field of view of this study. There is no significant scoliosis in the thoracic spinal column and there is no abnormal widening of the paraspinal lines. No osseous lesions. There is a nodular infiltrate in the lateral aspect of the left lung which is most probably benign as it is unchanged from 2014. IMPRESSION: Degenerative changes but no fractures nor listhesis nor significant osseous lesions in the thoracic s sofia column. Stable left lung lingular are nodule which is unchanged 2013 DATA REPOSITORY: RADIATION DOSE DELIVERED:
--- NOTE | 2022-06-22 14:25 | DI.DEXA_ITS ---
Exam(s) XR DEXA BONE DENSITY W/WO LEON EXAM: XR DEXA BONE DENSITY W/WO LEON CLINICAL HISTORY: osteopenia on study in 2018, acute menopausal state, Z78.0 TECHNIQUE: Routine DEXA evaluation of the lumbar spine, hip, or forearm. COMPARISON: Prior DEXA scan performed April 2018 FINDINGS: Performed on a [employer] unit. Lateral image: No compression fracture evident. Lumbar Spine total T-score: -1.4. Prior 2018 reading was -1.9 Hip total T-score:-1.8. Prior 2018 was -2.0 Independent reading at the level of the femoral neck yields at T-score -2.3. Forearm total T-score: -4.3 . Prior 2018 reading was -4.0. IMPRESSION: Bone mineral density measures in the osteopenia range in the spine and hip but measures in the osteop orosis range at the wrist-forearm.. Fracture risk is therefore moderate-high.. Note: Any spine fracture indicates 5x risk for subsequent spine fracture and 2x risk for subsequent h ip fracture. World Health Organization criteria for BMD interpretation classify patients: Normal...... T- Score at or above -1.0 Osteopenic... T- Score between -1.0 and -2.5 Osteoporosis... T-Score at or below -2.5
== END ==
PROVIDERS: PCP Family Medicine; Visit Provider Family Medicine
DX: M47.814 Spondylosis without myelopathy or radiculopathy, thoracic region (principal); Z78.0 Asymptomatic menopausal state; Z13.820 Encounter for screening for osteoporosis; M85.89 Other specified disorders of bone density and structure, multiple sites; M81.0 Age-related osteoporosis without current pathological fracture
CPT/HCPCS: 77080; 72072

== ENCOUNTER 2022-06-30 12:34 | Emergency (ER) | payer MEDICARE, MEDICAID, SELFPAY ==
[2022-06-30 12:48] VITALS: BP 150/61; PULSE 78; TEMP 36.7; O2SAT 97
--- NOTE | 2022-06-30 13:00 | DI.CT_ITS ---
Exam(s) CT ABDOMEN PELVIS W EXAM: CT ABDOMEN PELVIS W INDICATION: right flank pain and pelvic pain. COMPARISON: CT CT ABDOMEN PELVIS WO from 12/06/2018 TECHNIQUE: FINDINGS: CT examination of the abdomen and pelvis was performed with intravenous infusion of 100 cc of Omnipaq ue 350. Images obtained through the lung bases show a couple of small calcified granulomas and are otherwise unremarkable. The liver is of decreased attenuation consistent with hepatic steatosis and is otherwise unremarkable in appearance. Gallbladder and bile ducts are CT normal. Pancreas appears normal. Spleen is unremarkable in appearance. Adrenals appear mildly hypertrophied with no focal mass. Right kidney contains couple of tiny nonobstructing calculi,no evidence of hydronephrosis or renal ma ss. Left kidney is unremarkable. No ureteral calcification seen in the right or left ureter.. Urin attila bladder unremarkable. Abdominal aorta is of normal diameter and no major vascular abnormality is seen. No abdominal wall hernia. No abdominal or pelvic adenopathy. Uterus appears atrophic or absent. Appendix is not specifically visualized but there is no evidence of appendicitis. No evidence of div erticulitis or bowel obstruction. IMPRESSION: Small nonobstructing right renal calculus noted. No acute findings.. RADIATION DOSE DELIVERED: 841.41mGy.cm Total DLP 841.41mGy.cm Total DLP RADIATION OPTIMIZATION: All CT scans at this facility use at least one of these dose optimization te chniques: automated exposure control; mA and/or kV adjustment per patient size (includes targeted exa ms where dose is matched to clinical indication); or iterative reconstruction.
[2022-06-30 13:24] LABS: Abs Immature Grans 0.02 10^3/uL (0.0-0.06); Absolute Basophil Count 0.04 10^3/uL (0.0-0.2); Absolute Eosinophil Count 0.11 10^3/uL (0.0-0.7); Absolute Lymphocyte Count 2.55 10^3/uL (1.2-3.4); Absolute Monocyte Count 0.54 10^3/uL (0.1-0.8); Basophils % 0.6; Eosinophils % 1.7; HCT 38.5 % (36.0-46.0); HGB 12.6 g/dL (11.2-15.7); Immature Grans % 0.3; Lymphocytes % 38.3; MCH 30.3 pg (27.0-33.0); MCHC 32.7 % (32.0-36.0); MCV 93 fL (80-95); MPV 9.3 fL (8.0-11.0); Monocytes % 8.1; Platelet Count 237 10^3/uL (130-400); RBC 4.16 10^6/uL (3.93-5.22); RDW 14.2 % (11.7-14.6); RDW-SD 48.7 fL; WBC 6.66 10^3/uL (4.4-10.8)
[2022-06-30] MEDS: diazePAM 10 MG/2 ML SYR 2.5 MG IVP (13:33)
[2022-06-30] MEDS: Acetaminophen 325 MG TAB 650 MG PO (13:33)
[2022-06-30 13:36] LABS: Bilirubin Negative (Negative); Blood Negative (Negative); Clarity Clear (Clear); Glucose Negative (Negative); Ketones Negative (Negative); Leukocyte Esterase Trace (Negative); Nitrite Negative (Negative); Urobilinogen 0.2 EU/dL (Up TO 0.2)
[2022-06-30 13:38] LABS: ALT 22 U/L (14-59); AST 14 U/L (15-37); Albumin 3.6 g/dL (3.4-5.0); Alkaline Phosphatase 83 U/L (46-116); Anion Gap 9.6 mmol/L (3-11); BUN 12 mg/dL (7-18); Bilirubin, Total 0.3 mg/dL (0.2-1.0); CO2 27.4 mmol/L (21.0-32.0); CREATININE 1.1 mg/dL (0.55-1.02); Calcium 9.6 mg/dL (8.5-10.1); Chloride 98 mmol/L (98-107); Estimated GFR 52.08 (mL/min/1.73m2); Glucose 102 mg/dL (74-106); Lipase 72 U/L (73-393); Potassium 3.9 mmol/L (3.5-5.1); Sodium 135 mmol/L (136-145)
[2022-06-30 13:46] LABS: Bacteria Rare HPF (Negative); C & S Indicated? No/Sq. Contamination; Crystals Negative HPF (Negative); Epithelial Cells Moderate HPF (Negative); Mucus Trace (Negative); RBC 0-2 HPF (0-2)
[2022-06-30] MEDS: Omnipaque 350 MG/ML 500 ML BTL-Imaging package IJ (14:28)
[2022-06-30] MEDS: Normal Saline - Diluent 50 ML VIAL IJ (14:29)
[2022-06-30] MEDS: Normal Saline Flush 10 ML SYR IVP (14:30)
--- NOTE | 2022-06-30 14:48 | DI.VRAD_ITS ---
PROCEDURE INFORMATION: Exam: CT Abdomen And Pelvis With Contrast Exam date and time: 06/30/2022 2:23 PM Age: 76 years old Clinical indication: Other: Right flank pain and pelvic pain TECHNIQUE: Imaging protocol: Computed tomography of the abdomen and pelvis with contrast. Contrast material: OMNIPAQUE 350; Contrast volume: 100 ml; Contrast route: INTRAVENOUS (IV); COMPARISON: CT ABDOMEN PELVIS WO 12/06/2018 7:16 PM FINDINGS: Heart: Small pericardial effusion Liver: Hepatomegaly 19 cm No mass. Gallbladder and bile ducts: Normal. No calcified stones. No ductal dilation. Pancreas: Normal. No ductal dilation. Spleen: Normal. No splenomegaly. Adrenal glands: Left adrenal nodule measures 3.1 by 1.8 cm and 25 Hounsfield units. Kidneys and ureters: Normal. No hydronephrosis. Stomach and bowel: Diverticulosis of the rectosigmoid. No diverticulitis.. Sutures in small bowel in the pelvis Appendix: No evidence of appendicitis. Intraperitoneal space: Unremarkable. No free air. No significant fluid collection. Vasculature: Unremarkable. No abdominal aortic aneurysm. Lymph nodes: Unremarkable. No enlarged lymph nodes. Urinary bladder: Unremarkable as visualized. Reproductive: Unremarkable as visualized. Bones/joints: 8 mm sclerotic density noted in the sacrum, compatible with bone island (enostosis) in patient without history of neoplastic disease. Nuclear medicine bone scan may be useful for further evaluation if clinically indicated. Soft tissues: Unremarkable. IMPRESSION: 1. Left adrenal nodule measures 3.1 by 1.8 cm and 25 Hounsfield units. Not clearly adrenal adenoma 2. Diverticulosis of the rectosigmoid. No diverticulitis.. Dictated and Authenticated by: Marcelo Lopez MD. Ordering:JOSE DE JESUS Burns MD
--- NOTE | 2022-06-30 15:05 | W.ED.GENAD ---
Discharge Plan Disposition Patient Disposition: Home Condition: Stable Discharge Details Clinical Impression: Kidney stone Primary Care Provider: Josy Thomas ED Provider: Katy Cobos Home Meds and New Rx's Prescriptions: New diazepam [Valium] 5 mg tablet 2.5 mg PO BID PRNQty: 5 0RF Continued Saline Nasal 0.65 % aerosol,spray 2 spray intranasal QID PRN (Reason: dry nasal passages) Qty: 88 12RF hydroxyzine HCl 25 mg tablet 25 - 50 mg PO DIRECTED PRN (Reason: headache) Qty: 180 4RF Rx Instructions: q4hr prn headache /01-04-20: added also for anxiety tid prn/ NOT SENT estradiol [Vagifem] 10 mcg tablet 10 mcg VG as directed PRN (Reason: vaginal dryness) Qty: 30 5RF Rx Instructions: Insert one tablet 3 to 5 times a week as needed acetaminophen [Tylenol Arthritis Pain] 650 mg tablet extended release 1,300 mg PO BID PRN (Reason: pain) Qty: 120 6RF calcium carbonate-vitamin D3 [Calcium 600 + D(3)] 600 mg-10 mcg (400 unit) tablet 1 tab PO BID Qty: 60 11RF cholecalciferol (vitamin D3) 25 mcg (1,000 unit) tablet 1,000 unit PO BID Qty: 180 4RF docusate sodium 100 mg capsule 100 mg PO BID PRN (Reason: constipation) Qty: 180 4RF ferrous sulfate 325 mg (65 mg iron) tablet 325 mg PO DAILY Qty: 90 3RF multivitamin Tablet 1 tab PO DAILY Qty: 90 4RF triamcinolone acetonide 0.1 % cream 1 applic topical BID PRN (Reason: foot rash) Qty: 30 1RF amitriptyline 100 mg tablet 100 mg PO QHS Qty: 90 3RF mirabegron 25 mg tablet extended release 24 hr 25 mg PO DAILY Qty: 30 11RF gabapentin 300 mg capsule 300 mg PO DIRECTED Qty: 360 1RF Rx Instructions: 300mg am and noon; 600mg HS; omeprazole 40 mg capsule,delayed release(DR/EC) 40 mg PO DAILY Qty: 90 1RF magnesium oxide 400 mg (241.3 mg magnesium) tablet 400 mg PO DAILY Qty: 132 3RF Hold Instructions: Home Medication placed on hold at Doctor's office Rx Instructions: take one tablet on Saturday,Saturday,Saturday and 2 tabs on other days metformin 500 mg tablet,ER melissa.retention 24 hr 500 - 1,000 mg PO .bid as directed Qty: 270 2RF Rx Instructions: take 2 tablets in am and one tablet pm potassium chloride 20 mEq tablet extended release 20 meq PO . AFTERNOON Qty: 90 2RF Rx Instructions: take one tablet daily cyanocobalamin (vitamin B-12) 1,000 mcg capsule 1,000 mcg PO DAILY Qty: 90 2RF Discharge Instructions Instructions: Kidney Stones (ED) Additional Instructions: Take Tylenol 650 mg every 4-6 hours You may take 2.5 mg or half a tablet of Valium every 8 hours as needed for pain This medication is addictive and should not be combined with any sort of alcohol You should also not drive your vehicle for 8 hours after taking it You do have a kidney stone, it is not in your ureter and therefore should not cause discomfort, I recommend following up with the urologist and primary care physician Return earlier should you have new or worsening complaints PCP recheck next week with persistent discomfort recommended Referrals: Siva Cannon MD [ [facility] STAFF PHYSICIAN] - 1 day Josy Thomas MD [Primary Care Provider] - 1 day Medical Decision Making Patient appears well, no reproducible tenderness, CT scan shows evidence of a nephrolithiasis without ureterolithiasis, urinalysis does not show evidence of acute infection per radiology interpretation my review Patient feeling marked improvement after small amount of Valium, 200 mg and Tylenol Pain may be from kidney stone as it is on the same side of pain, however her symptoms are more musculoskeletal in nature especially with a nephrolithiasis There is no indication for additional testing at this time, she is encouraged to follow-up with urology and her primary care physician She is given several tabs of Valium for home Return precautions discussed and patient expressed understanding Medical Records Medical records reviewed: Yes I reviewed the patient's medical records. Lab Data Lab results reviewed: Yes I reviewed the patient's lab results. Sign Out No HPI General Date/Time Provider Initiated Documentation: 06/30/22 12:46. Limitations to Documentation: no limitations. Information obtained by: patient. HPI Narrative: This 76-year-old female presents with right flank and lower back pain started last night and became worse during the day. Pain is exacerbated with movement and position change. Denies any chest pain or shortness of breath. Denies any dizziness or weakness. Denies any fever or chills. Denies history of similar symptoms in the past. Denies any pleuritic pain associated or cough. Denies hematuria. Related Data Home Medications Medication Instructions Recorded Confirmed acetaminophen 650 mg 1,300 mg PO BID PRN pain #120 tabs 01/21/19 05/09/22 tablet,extended release (Tylenol Arthritis Pain) hydroxyzine HCl 25 mg tablet 25 - 50 mg PO DIRECTED PRN 03/09/20 05/09/22 headache #180 tabs calcium carbonate 600 mg-vitamin 1 tab PO BID #60 tab-caps 09/26/21 05/09/22 D3 10 mcg (400 unit) tablet (Calcium 600 + D(3)) cholecalciferol (vitamin D3) 25 1,000 unit PO BID #180 tabs 09/26/21 05/09/22 mcg (1,000 unit) tablet docusate sodium 100 mg capsule 100 mg PO BID PRN constipation 09/26/21 05/09/22 #180 caps ferrous sulfate 325 mg (65 mg 325 mg PO DAILY #90 tab-caps 09/26/21 05/09/22 iron) tablet multivitamin 1 tab PO DAILY #90 tabs 09/26/21 05/09/22 triamcinolone acetonide 0.1 % 1 applic topical BID PRN foot rash 12/28/21 05/09/22 topical cream #30 grams amitriptyline 100 mg tablet 100 mg PO QHS #90 tabs 01/02/22 05/09/22 mirabegron 25 mg tablet,extended 25 mg PO DAILY #30 tabs 01/26/22 05/09/22 release 24 hr gabapentin 300 mg capsule 300 mg PO DIRECTED #360 tab-caps 02/01/22 05/09/22 sodium chloride 0.65 % nasal spray 2 spray intranasal QID PRN dry 02/07/22 05/09/22 aerosol (Saline Nasal) nasal passages #88 mL omeprazole 40 mg capsule,delayed 40 mg PO DAILY #90 caps 03/19/22 05/09/22 release magnesium oxide 400 mg (241.3 mg 400 mg PO DAILY #132 tab-caps 04/17/22 05/09/22 magnesium) tablet estradiol 10 mcg vaginal tablet 10 mcg vaginal as directed PRN 05/09/22 05/09/22 (Vagifem) vaginal dryness #30 tabs cyanocobalamin (vitamin B-12) 1,000 mcg PO DAILY #90 caps 06/11/22 1,000 mcg capsule metformin 500 mg 24 hr 500 - 1,000 mg PO .bid as directed 06/11/22 tablet,extended release #270 tabs potassium chloride 20 mEq 20 meq PO . AFTERNOON #90 tabs 06/11/22 tablet,extended release diazepam 5 mg tablet (Valium) 2.5 mg PO BID PRN #5 tabs 06/30/22 Previous Rx's Medication Instructions Recorded acetaminophen 650 mg 1,300 mg PO BID PRN pain #120 tabs 01/21/19 tablet,extended release (Tylenol Arthritis Pain) hydroxyzine HCl 25 mg tablet 25 - 50 mg PO DIRECTED PRN 03/09/20 headache #180 tabs calcium carbonate 600 mg-vitamin 1 tab PO BID #60 tab-caps 09/26/21 D3 10 mcg (400 unit) tablet (Calcium 600 + D(3)) cholecalciferol (vitamin D3) 25 1,000 unit PO BID #180 tabs 09/26/21 mcg (1,000 unit) tablet docusate sodium 100 mg capsule 100 mg PO BID PRN constipation 09/26/21 #180 caps ferrous sulfate 325 mg (65 mg 325 mg PO DAILY #90 tab-caps 09/26/21 iron) tablet multivitamin 1 tab PO DAILY #90 tabs 09/26/21 triamcinolone acetonide 0.1 % 1 applic topical BID PRN foot rash 12/28/21 topical cream #30 grams amitriptyline 100 mg tablet 100 mg PO QHS #90 tabs 01/02/22 mirabegron 25 mg tablet,extended 25 mg PO DAILY #30 tabs 01/26/22 release 24 hr gabapentin 300 mg capsule 300 mg PO DIRECTED #360 tab-caps 02/01/22 sodium chloride 0.65 % nasal spray 2 spray intranasal QID PRN dry 02/07/22 aerosol (Saline Nasal) nasal passages #88 mL omeprazole 40 mg capsule,delayed 40 mg PO DAILY #90 caps 03/19/22 release magnesium oxide 400 mg (241.3 mg 400 mg PO DAILY #132 tab-caps 04/17/22 magnesium) tablet estradiol 10 mcg vaginal tablet 10 mcg vaginal as directed PRN 05/09/22 (Vagifem) vaginal dryness #30 tabs cyanocobalamin (vitamin B-12) 1,000 mcg PO DAILY #90 caps 06/11/22 1,000 mcg capsule metformin 500 mg 24 hr 500 - 1,000 mg PO .bid as directed 06/11/22 tablet,extended release #270 tabs potassium chloride 20 mEq 20 meq PO . AFTERNOON #90 tabs 06/11/22 tablet,extended release diazepam 5 mg tablet (Valium) 2.5 mg PO BID PRN #5 tabs 06/30/22 Allergies Allergy/AdvReac Type Severity Reaction Status Date / Time Penicillins Allergy Intermediate Skin Rash Unverified 05/09/22 13:34 miconazole Allergy Skin Rash Unverified 05/09/22 13:34 povidone-iodine Allergy Skin Rash Unverified 05/09/22 13:34 Sulfa (Sulfonamide Allergy Skin Rash Unverified 05/09/22 13:34 Antibiotics) General Stated Complaint: FlankPain FRANCIS: 4 Review of Systems All systems reviewed & are unremarkable except as noted in HPI and below PFSH All Active Problems (Updated 06/30/22 @ 14:58 by MEGAN Mendiola) Type 2 diabetes mellitus with complication, without long-term current use of insulin (Chronic 12/02/17) Hyperlipidemia (Chronic) Vitamin D deficiency (Chronic 08/11/12) Cervical spondylosis (Chronic 02/11/14) Multiple sclerosis (Chronic) secondary progressive HTN (hypertension) (Acute) Vitamin B12 deficiency (Chronic) SHERRELL (generalized anxiety disorder) (Chronic) Chronic low back pain (Acute) Monocular diplopia (Chronic) Mild cognitive impairment (Acute) Walker as ambulation aid (Chronic) uses in her apartment Uses wheelchair (Chronic) when out of her apartment motorized Urinary incontinence, mixed (Acute) uses adult diapers Fecal incontinence (Acute) Osteoarthritis of carpometacarpal joint of left thumb (Acute) Tobacco dependence due to cigarettes (Acute) Lung nodule, solitary (Acute) 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 SBO (small bowel obstruction) multiple; last May 2018 Tenosynovitis, de Quervain left sided Surgical History (Updated 08/30/21 @ 14:09 by Josy Thomas MD) H/O hemorrhoidectomy History of bowel resection History of cataract surgery History of repair of hiatal hernia paproscopic repair Hx of arthroscopy of right knee Hx of hysterectomy S/P trigger finger release Status post de Quervain's release surgery Status post total right knee replacement Family History (Updated 03/02/21 @ 07:37 by Malia Zambrano MD) Mother , AGE 87 Diabetes Stroke Father , AGE 83 lung cancer Cancer Heart disease CABG x 4 Brother , AGE 70 motor vehicle crash Motor vehicle accident Brother Family estrangement Brother No problems noted. Daughter Family estrangement ok relationship Daughter Family estrangement emotional estrangement Social History (Updated 02/08/22 @ 12:04 by Lexis Canseco) Smoking/Tobacco Use Status: Current every day Tobacco: How many years used: 60 Quit status: not considering quitting Second Hand Exposure: Yes Counseling given: provider counseling Smoking risk assessment performed?: Yes Alcohol Intake: never Drug use: Never Substance use type: does not use Caregiver/Support person: Yes (has senior living home caregiver kiana [id number]) Details: lives in [facility] Household members: none Housing: apartment Number of Children: 2 number of grandchildren: 6 Communication Needs: Hard of Hearing and Corrective Lenses Education Level: high school Do you need help understanding health information?: Often 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 Pets and animals: No Sexually active: No Do you think of yourself as: straight/heterosexual Current gender identity: female What is your relationship status?: How often do you talk on the phone with friends or family?: twice per week How often do you get together with friends or relatives?: three or more times per week How often do you attend oriental orthodox or roman catholic services?: decline to answer Do you belong to any clubs or organized social groups?: no Panel score (0-1 are the most socially isolated patients): 1 What type of physical activity do you participate in: none Duration: < 15 minutes/day Frequency: daily Marilee/Temple: Religious Special marilee needs: No Seatbelt use: always Helmet use: No Drive intox or ride w/intox school bus driver: No Working smoke detector in home: Yes Fire extinguisher in home: Yes Do you feel safe at home: Yes Do you feel safe in your relationship?: Yes Additional Social history: Independent living apartment at [facility]. Has no health care agent. Would not want either daughter nor brother. Closest person to her is Kiana, an MULESER from , but she could not live with Jolanta at [facility]. No real plan; tried to address it in detail. Jolanta unreadyElvira Fowler is her test case developer at . Has been since age 41. Was very close to her father; still mourns him. Exam Const General: cooperative and no acute distress Chest Chest: normal inspection of the chest Resp Effort & Inspection: normal respiratory effort Auscultation: clear to auscultation bilaterally Cardio Rate: regular rate Rhythm: regular rhythm GI Inspection: normal to inspection Other: No abdominal bruit or pulsatile mass, no CVA tenderness Skin General skin exam: no rashes or lesions noted Neuro General: patient alert and patient oriented x3 Other: Negative straight leg raise, negative Babinski bilaterally Extrem Other: Neurovascularly intact Course Vital Signs Vital signs: Vital Signs Temperature 36.7 C 06/30/22 12:48 Pulse 78 06/30/22 12:48 Blood Pressure 150/61 H 06/30/22 12:48 Pulse Oximetry 97 06/30/22 12:48 Temperature 36.7 C 06/30/22 12:48 Pulse 78 06/30/22 12:48 Respiratory Effort 06/30/22 12:50 Blood Pressure 150/61 H 06/30/22 12:48 Blood Pressure Position Supine 06/30/22 12:48 Pulse Oximetry 97 06/30/22 12:48 Oxygen Delivery Method Room Air 06/30/22 12:48 Oxygen Flow Rate 0 06/30/22 12:48 Pain Level 10 06/30/22 12:48 Lab/Test Results Lab/Test Results: Laboratory Tests Range/Units 06/30/22 06/30/22 06/30/22 13:15 13:15 13:23 WBC (4.4-10.8) 10^3/uL 6.66 RBC (3.93-5.22) 10^6/uL 4.16 Hgb (11.2-15.7) g/dL 12.6 Hct (36.0-46.0) % 38.5 MCV (80-95) fL 93 MCH (27.0-33.0) pg 30.3 MCHC (32.0-36.0) % 32.7 RDW (11.7-14.6) % 14.2 Plt Count (130-400) 10^3/uL 237 MPV (8.0-11.0) fL 9.3 Immature Gran % 0.3 Neutrophils % 51.0 Lymphocytes % 38.3 Monocytes % 8.1 Eosinophils % 1.7 Basophils % 0.6 Nucleated RBC % (0.0-0.3) % 0.0 Absolute Neutrophils (1.2-6.7) 10^3/uL 3.40 Absolute Lymphocytes (1.2-3.4) 10^3/uL 2.55 Absolute Monocytes (0.1-0.8) 10^3/uL 0.54 Absolute Eosinophils (0.0-0.7) 10^3/uL 0.11 Absolute Basophils (0.0-0.2) 10^3/uL 0.04 Sodium (136-145) mmol/L 135 L Potassium (3.5-5.1) mmol/L 3.9 Chloride (98-107) mmol/L 98 Carbon Dioxide (21.0-32.0) mmol/L 27.4 Anion Gap (3-11) mmol/L 9.6 BUN (7-18) mg/dL 12 Creatinine (0.55-1.02) mg/dL 1.1 H Est GFR (CKD-EPI 2020) (mL/min/1.73m2) 52.08 Glucose (74-106) mg/dL 102 Calcium (8.5-10.1) mg/dL 9.6 Total Bilirubin (0.2-1.0) mg/dL 0.3 AST (15-37) U/L 14 L ALT (14-59) U/L 22 Alkaline Phosphatase (46-116) U/L 83 Total Protein (6.4-8.2) g/dL 7.0 Albumin (3.4-5.0) g/dL 3.6 Lipase (73-393) U/L 72 Urine Color (Yellow) Yellow Urine Clarity (Clear) Clear Urine pH (5-8) 6.0 Ur Specific Burnett (1.005-1.025) 1.020 Urine Protein (Negative) mg/dL Negative Urine Ketones (Negative) mg/dL Negative Urine Blood (Negative) Negative Urine Nitrite (Negative) Negative Urine Bilirubin (Negative) Negative Urine Urobilinogen (Up TO 0.2) EU/dL 0.2 Ur Leukocyte Esterase (Negative) Trace H Urine RBC (0-2) HPF 0-2 Urine WBC (0-5) HPF 3-5 Ur Epithelial Cells (Negative) HPF Moderate Urine Crystals (Negative) HPF Negative Urine Bacteria (Negative) HPF Rare Urine Mucus (Negative) Trace Ur Culture Indicated? No/Sq. Contamination Urine Glucose (Negative) mg/dL Negative
[2022-06-30] MEDS: diazePAM 2 MG TAB PO (15:07)
--- NOTE | 2022-07-02 09:10 | NUR.NOTE ---
Nursing Note: Accessed pt chart to check on the status of the prescription that was transmitted to [facility]. Still in pending status and Dr. Princess Cotton is looking into it.
--- NOTE | 2022-07-02 09:13 | ED.FU.B_ITS ---
Follow Up Plan: I was contacted by [facility] regarding a prescription that was prescribed electronically for this patient. The prescription was for 2.5 mg Valium p.o. twice daily as needed dispense 5 tabs no refills. Patient had requested this medication from the pharmacy, pharmacy has stated that they had not received the prescription, and in our EHR electronic prescription was listed as pending. I spoke with the pharmacist and prescribed this medication as previously prescribed, with a dosage adjustment of 2.5 mg to 2 mg so that pills would not n eed to be cut in half. I did speak to the pharmacist about the pending prescription, to ensure that that would be canceled and it would not be filled twice.
== END 2022-06-30 15:07 | disposition home or self-care (01) ==
PROVIDERS: Emergency Provider Physician Assistant; PCP Family Medicine
DX: N20.0 Calculus of kidney (principal); N18.9 Chronic kidney disease, unspecified; D63.1 Anemia in chronic kidney disease
CPT/HCPCS: 80053; 83690; 96374; 99284; 74177; 81003; 81015; 85025; J3360

== ENCOUNTER → 2022-07-09 09:11 | Outpatient (BNVA) | payer MEDICARE, MEDICAID, SELFPAY | PROVIDERS: PCP Family Medicine; Referring Provider Family Medicine; Visit Provider Psychiatry & Neurology Neurology | DX: G35 Multiple sclerosis (principal); G43.709 Chronic migraine without aura, not intractable, without status migrainosus; F41.9 Anxiety disorder, unspecified; R41.3 Other amnesia; E11.8 Type 2 diabetes mellitus with unspecified complications; I10 Essential (primary) hypertension | CPT/HCPCS: 99215 ==

== ENCOUNTER → 2022-07-30 01:22 | Outpatient (CLI) | payer MEDICARE, MEDICAID, SELFPAY ==
--- NOTE | 2022-07-30 07:00 | DI.MRI_ITS ---
Exam(s) MR BRAIN WO EXAM: MR BRAIN WO CLINICAL HISTORY: Memory loss; h/o MS,MILD COGNITIVE IMPAIRMENT, G31.84 TECHNIQUE: Multiplanar multisequence MRI of the brain was performed. COMPARISON: MR MRI - BRAIN W/WO CONTRAST from 11/01/2010 FINDINGS: No intracranial hemorrhage, mass or infarct is seen. The ventricles are normal in size. There are prominent Virchow Elias spaces. Prominent bilateral periventricular and white matter high signal on T2 and FLAIR images somewhat more prominent when compared to prior. High signal also seen in bel. This appears unchanged. No foci of restricted diffusion. Stable mild cerebral atrophy. The vascular flow voids appear intact. The orbits and pituitary are unremarkable as visualized. The sinuses and mastoid air cells are clear. IMPRESSION: Mild interval progression of white matter changes when compared with prior. DATA REPOSITORY:
== END ==
PROVIDERS: PCP Family Medicine; Visit Provider Psychiatry & Neurology Neurology
DX: G31.84 Mild cognitive impairment of uncertain or unknown etiology (principal); G35 Multiple sclerosis
CPT/HCPCS: 70551

== ENCOUNTER 2022-07-31 14:27 | Outpatient (REF) | payer MEDICARE, MEDICAID, SELFPAY ==
[2022-07-31 16:13] LABS: Hemoglobin A1C 6.5 % (<5.7)
[2022-07-31 16:30] LABS: Anion Gap 15.9 mmol/L (3-11); BUN 15 mg/dL (7-18); CO2 20.1 mmol/L (21.0-32.0); CREATININE 1.1 mg/dL (0.55-1.02); Calcium 9.5 mg/dL (8.5-10.1); Chloride 103 mmol/L (98-107); Cholesterol 339 mg/dL (<200); Estimated GFR 52.08 (mL/min/1.73m2); Glucose 168 mg/dL (74-106); HDL Cholesterol 43 mg/dL (40-60); Potassium 3.4 mmol/L (3.5-5.1); Sodium 139 mmol/L (136-145); TSH (W/Ref FT4) 1.13 uIU/mL (0.36-3.74); Triglyceride 585 mg/dL (<150)
[2022-07-31 17:21] LABS: LDL CHOLESTEROL 204 mg/dL (<100)
[2022-07-31 17:48] LABS: COMMENT (LAB VIEW ONLY) 204.05 mg/dL; Microalb ug/mg Crea 9.6 ug/mg Cr
== END 2022-07-31 14:28 | disposition home or self-care (01) ==
LOC: LBN 14:27
PROVIDERS: PCP Family Medicine; Visit Provider Family Medicine
DX: E11.8 Type 2 diabetes mellitus with unspecified complications (principal)
CPT/HCPCS: 80048; 80061; 83721; 82043; 82570; 83036; 84443

== ENCOUNTER 2022-08-02 18:18 | Inpatient (IN) | payer MEDICARE, MEDICAID, SELFPAY ==
[2022-08-02] VITALS (29 sets, daily range): BP systolic 139–208; BP diastolic 64–107; PULSE 93–99; RESP 14–26; TEMP 35.9; O2SAT 87–98
--- NOTE | 2022-08-02 18:15 | RT.EKG_ITS ---
APPROVED REPORT Exam: Resting ECG Reason for Exam: severe abd pain Patient Location: E HR:89 bpm ECG Measurements Heart Rate 89 AXIS VT 177 P 11 QRSd 97 QRS 41 QT 356 T 56 QTc 434 Conclusion Sinus rhythm...normal P axis, V-rate 60- 99 Probable left atrial enlargement...P >50mS, <-0.10mV V1. Sinus. Normal axis. No STEMI. I have reviewed and interpreted ECG and agree with software generated interpretation.
[2022-08-02 18:55] LABS: Abs Immature Grans 0.08 10^3/uL (0.0-0.06); Absolute Eosinophil Count 0.11 10^3/uL (0.0-0.7); Absolute Lymphocyte Count 2.99 10^3/uL (1.2-3.4); Basophils % 0.5; Eosinophils % 0.7; HCT 41.1 % (36.0-46.0); HGB 13.5 g/dL (11.2-15.7); Immature Grans % 0.5; Lymphocytes % 19.6; MCH 30.6 pg (27.0-33.0); MCHC 32.8 % (32.0-36.0); MCV 93 fL (80-95); MPV 9.1 fL (8.0-11.0); Monocytes % 4.5; Neutrophils % 74.2; Platelet Count 286 10^3/uL (130-400); RBC 4.41 10^6/uL (3.93-5.22); RDW 14.3 % (11.7-14.6); WBC 15.23 10^3/uL (4.4-10.8)
[2022-08-02 18:56] LABS: Absolute Basophil Count 0.08 10^3/uL (0.0-0.2); Absolute Monocyte Count 0.69 10^3/uL (0.1-0.8)
--- NOTE | 2022-08-02 19:00 | DI.CT_ITS ---
Exam(s) CT ABDOMEN PELVIS W EXAM: CT ABDOMEN PELVIS W CLINICAL HISTORY: diffuse abd pain, nausea, h/o sbo, r/o SBO TECHNIQUE: Imaging Protocol: Axial computed tomography images with coronal and sagittal reformatted images were created and reviewed CONTRAST MATERIAL: Intravenous: Omnipaque 350 Contrast volume:100 mL Oral: No COMPARISON: CT CT ABDOMEN PELVIS W from 06/30/2022 FINDINGS: ABDOMEN: Lung Bases: There is a tiny pericardial effusion. This has decreased in size. Atelectatic changes a re seen in the lung bases. Liver: There is decreased attenuation of the liver suggesting fatty infiltration. The liver is enlar ged. No measurable mass. Portal, Superior Mesenteric, and Splenic Veins: Unremarkable. Gallbladder and Biliary Tract: No radiodense calculus or dilation. Pancreas: There again seen calcifications in the head of the pancreas. No peripancreatic fluid collec tions or masses are seen. Spleen: Normal. Adrenals: There are stable bilateral adrenal nodules. Kidneys: Normal size, contour and axis. No radiodense stones or obstructive uropathy. No masses seen. Note is made of a retroaortic left renal vein. Abdominal Aorta: Abdominal portion non-dilated. Atherosclerosis is present. Bowel: There is diverticulosis seen in the colon but no evidence of acute diverticulitis. There are d ilated loops of proximal small bowel and stomach with a transition in the mid small bowel suspicious for small bowel obstruction. No evidence of appendicitis. Peritoneal Cavity: No ascites, collection or mesenteric inflammatory response. No free air. Lymph Nodes: Within normal limits. Bones: Within normal limits for the patient's age. Soft Tissues: Unremarkable. PELVIS: Bladder: Symmetric distention, no gross wall thickening. Reproductive Organs: Status post hysterectomy. Lymph Nodes: Within normal limits. Bones: Within normal limits for the patient's age. IMPRESSION: Findings consistent with the small bowel obstruction with transition seen in the mid small bowel. RADIATION DOSE DELIVERED: 832.96mGy.cm Total DLP DATA REPOSITORY: All CT scans at this facility are submitted to the National Radiology Data Registry (NRDR) Dose Index Registry (DIR) with the [employer] (ACR). RADIATION OPTIMIZATION: All CT scans at this facility use at least one of these dose optimization te chniques: automated exposure control; mA and/or kV adjustment per patient size (includes targeted exa ms where dose is matched to clinical indication); or iterative reconstruction.
--- NOTE | 2022-08-02 19:02 | ED.GENADUL_ITS ---
Discharge Plan Disposition Patient Disposition: Admit to [facility] Condition: Improving Discharge Details Clinical Impression: Small bowel obstruction Admit Date/Time: 08/03/22 00:18 Admit Provider: Anjum Mehta Attending Provider: Anjum Mehta Primary Care Provider: Josy Thomas ED Provider: Camron Jean Discharge Data Discharge Date/Time-TO BE ENTERED AT DEPARTURE: 08/03/22 01:14 Medical Decision Making <Minerva Leyva DO - Last Filed: 08/03/22 09:45> 1845 -- 76-year-old female with a history of hypertension, hyperlipidemia, depression, diabetes, small bowel obstruction presents with sudden onset of abdominal distention, diffuse abdominal pain and nausea that started a few hours ago. Heart rate and blood pressure moderately elevated. She is afebrile. Patient appears uncomfortable. She has severe abdominal distention but bowel sounds are noted in the left lower quadrant. Differential diagnosis includes small bowel obstruction, gastroenteritis, influenza, COVID, UTI, Cholelithiasis, cholecystitis, pancreatitis. History of presentation does not appear consistent with AAA, dissection or ACS at this time. We will place an IV, bolus IV fluids, screening labs, urinalysis, CT abdomen and pelvis. We will give a dose of IV Dilaudid and IV Zofran. 1999 -- Case endorsed to Dr. Jean to follow-up on labs and imaging and final disposition. Addendum: Received transfer of care from Dr. Leyva. Please see her note regarding initial presentation, exam and plan of care. Patient's laboratories noted a white count of 15, hematocrit 41, platelets 286. BUN 12, creatinine 1.1 . Lipase elevated [place] 4615. CT scan shows high-grade proximal small bowel obstruction. Pancreas unremarkable. Case discussed with Dr. Mehta. Patient will be admitted. She will likely board in the ER overnight. Medical Records Medical records reviewed: Yes I reviewed the patient's medical records. <Camron Jean MD - Last Filed: 08/02/22 23:06> 1845 -- 76-year-old female with a history of hypertension, hyperlipidemia, depression, diabetes, small bowel obstruction presents with sudden onset of abdominal distention, diffuse abdominal pain and nausea that started a few hours ago. Heart rate and blood pressure moderately elevated. She is afebrile. Patient appears uncomfortable. She has severe abdominal distention but bowel sounds are noted in the left lower quadrant. Differential diagnosis includes small bowel obstruction, gastroenteritis, influenza, COVID, UTI, Cholelithiasis, c holecystitis, pancreatitis. History of presentation does not appear consistent with AAA, dissection or ACS at this time. We will place an IV, bolus IV fluids, screening labs, urinalysis, CT abdomen and pelvis. We will give a dose of IV Dilaudid and IV Zofran. 1999 -- Case endorsed to Dr. Jean to follow-up on labs and imaging and final disposition.\ Addendum: Received transfer of care from Dr. Leyva. Please see her note regarding initial presentation, exam and plan of care. Patient's laboratories noted a white count of 15, hematocrit 41, platelets 286. BUN 12, creatinine 1.1. Lipase elevated at 4615. CT scan shows high-grade proximal small bowel obstruction. Pancreas unremarkable. Case discussed with Dr. Mehta. Patient will be admitted. She will likely board in the ER overnight. HPI <Minerva Leyva, - Last Filed: 08/03/22 09:45> General Mode of arrival: EMS . Date/Time Provider Initiated Documentation: 08/02/22 18:22 . Limitations to Documentation: no limitations . Information obtained by: patient . HPI Narrative: Patient is a 76-year-old female with a history of hypertension, hyperlipidemia, diabetes, multiple sclerosis and small bowel obstruction who presents for sudden onset of abdominal distension, diffuse abdominal pain and nausea that started a few hours ago. She states she has been spitting up some phlegm but otherwise denies any vomiting. She states her last bowel movement was last night at this morning. She denies any fever. Related Data Home Medications Medication Instructions Recorded Confirmed acetaminophen 650 mg 1,300 mg PO BID PRN pain #120 tabs 01/21/19 08/02/22 tablet,extended release (Tylenol Arthritis Pain) hydroxyzine HCl 25 mg tablet 25 - 50 mg PO DIRECTED PRN 03/09/20 08/02/22 headache #180 tabs calcium carbonate 600 mg-vitamin 1 tab PO BID #60 tab-caps 09/26/21 08/02/22 D3 10 mcg (400 unit) tablet (Calcium 600 + D(3)) cholecalciferol (vitamin D3) 25 1,000 unit PO BID #180 tabs 09/26/21 08/02/22 mcg (1,000 unit) tablet docusate sodium 100 mg capsule 100 mg PO BID PRN constipation 09/26/21 08/02/22 #180 caps ferrous sulfate 325 mg (65 mg 325 mg PO DAILY #90 tab-caps 09/26/21 08/02/22 iron) tablet multivitamin 1 tab PO DAILY #90 tabs 09/26/21 08/02/22 triamcinolone acetonide 0.1 % 1 applic topical BID PRN foot rash 12/28/21 08/02/22 topical cream #30 grams amitriptyline 100 mg tablet 100 mg PO QHS #90 tabs 01/02/22 08/02/22 mirabegron 25 mg tablet,extended 25 mg PO DAILY #30 tabs 01/26/22 08/02/22 release 24 hr sodium chloride 0.65 % nasal spray 2 spray intranasal QID PRN dry 02/07/22 08/02/22 aerosol (Saline Nasal) nasal passages #88 mL omeprazole 40 mg capsule,delayed 40 mg PO DAILY #90 caps 03/19/22 08/02/22 release magnesium oxide 400 mg (241.3 mg 400 mg PO DAILY #132 tab-caps 04/17/22 08/02/22 magnesium) tablet estradiol 10 mcg vaginal tablet 10 mcg vaginal as directed PRN 05/09/22 08/02/22 (Vagifem) vaginal dryness #30 tabs cyanocobalamin (vitamin B-12) 1,000 mcg PO DAILY #90 caps 06/11/22 08/02/22 1,000 mcg capsule metformin 500 mg 24 hr 500 - 1,000 mg PO .bid as directed 06/11/22 08/02/22 tablet,extended release #270 tabs potassium chloride 20 mEq 20 meq PO . AFTERNOON #90 tabs 06/11/22 08/02/22 tablet,extended release duloxetine 30 mg capsule,delayed 30 mg PO DAILY #30 caps 07/02/22 08/02/22 release sprinkle lorazepam 0.5 mg tablet 0.5 mg PO ONCE PRN anxiety #2 tabs 07/09/22 08/02/22 gabapentin 300 mg capsule 300 mg PO DIRECTED #360 tab-caps 07/11/22 08/02/22 Previous Rx's Medication Instructions Recorded acetaminophen 650 mg 1,300 mg PO BID PRN pain #120 tabs 01/21/19 tablet,extended release (Tylenol Arthritis Pain) hydroxyzine HCl 25 mg tablet 25 - 50 mg PO DIRECTED PRN 03/09/20 headache #180 tabs calcium carbonate 600 mg-vitamin 1 tab PO BID #60 tab-caps 09/26/21 D3 10 mcg (400 unit) tablet (Calcium 600 + D(3)) cholecalciferol (vitamin D3) 25 1,000 unit PO BID #180 tabs 09/26/21 mcg (1,000 unit) tablet docusate sodium 100 mg capsule 100 mg PO BID PRN constipation 09/26/21 #180 caps ferrous sulfate 325 mg (65 mg 325 mg PO DAILY #90 tab-caps 09/26/21 iron) tablet multivitamin 1 tab PO DAILY #90 tabs 09/26/21 triamcinolone acetonide 0.1 % 1 applic topical BID PRN foot rash 12/28/21 topical cream #30 grams amitriptyline 100 mg tablet 100 mg PO QHS #90 tabs 01/02/22 mirabegron 25 mg tablet,extended 25 mg PO DAILY #30 tabs 01/26/22 release 24 hr sodium chloride 0.65 % nasal spray 2 spray intranasal QID PRN dry 02/07/22 aerosol (Saline Nasal) nasal passages #88 mL omeprazole 40 mg capsule,delayed 40 mg PO DAILY #90 caps 03/19/22 release magnesium oxide 400 mg (241.3 mg 400 mg PO DAILY #132 tab-caps 04/17/22 magnesium) tablet estradiol 10 mcg vaginal tablet 10 mcg vaginal as directed PRN 05/09/22 (Vagifem) vaginal dryness #30 tabs cyanocobalamin (vitamin B-12) 1,000 mcg PO DAILY #90 caps 06/11/22 1,000 mcg capsule metformin 500 mg 24 hr 500 - 1,000 mg PO .bid as directed 06/11/22 tablet,extended release #270 tabs potassium chloride 20 mEq 20 meq PO . AFTERNOON #90 tabs 06/11/22 tablet,extended release duloxetine 30 mg capsule,delayed 30 mg PO DAILY #30 caps 07/02/22 release sprinkle lorazepam 0.5 mg tablet 0.5 mg PO ONCE PRN anxiety #2 tabs 07/09/22 gabapentin 300 mg capsule 300 mg PO DIRECTED #360 tab-caps 07/11/22 Allergies Allergy/AdvReac Type Severity Reaction Status Date / Time Penicillins Allergy Intermediate Skin Rash Unverified 08/02/22 18:24 aspirin Allergy Unverified 08/02/22 18:25 miconazole Allergy Skin Rash Unverified 08/02/22 18:24 povidone-iodine Allergy Skin Rash Unverified 08/02/22 18:24 Sulfa (Sulfonamide Allergy Skin Rash Unverified 08/02/22 18:24 Antibiotics) General Stated Complaint: Abd Prob FRANCIS: 2 Review of Systems <Minerva Leyva DO - Last Filed: 08/03/22 09:45> All systems reviewed & are unremarkable except as noted in HPI and below Constitutional Constitutional: Reports as per HPI, Denies chills and Denies fever(s) Eyes Eyes: Denies blurry vision ENT Ears, Nose, Mouth, and Throat: Denies dizziness, Denies sore throat and Denies throat swelling Cardiovascular Cardiovascular: Denies chest pain and Denies dyspnea Respiratory Respiratory: Denies cough and Denies dyspnea Gastrointestinal Gastrointestinal: Reports abdominal pain, Denies diarrhea and Denies vomiting Genitourinary Genitourinary: Denies hematuria and Denies dysuria Musculoskeletal Musculoskeletal: Denies back pain and Denies numbness Integumentary/Breasts Skin/Breast: Denies lesions and Denies rash Neurologic Neurologic: Denies dizziness, Denies localized weakness and Denies numbness Allergic/Immunologic Allergic/Immunologic: Denies throat swelling PFSH <Minerva Leyva DO - Last Filed: 08/03/22 09:45> All Active Problems Type 2 diabetes mellitus with complication, without long-term current use of insulin (Chronic 12/02/17) Hyperlipidemia (Chronic) Vitamin D deficiency (Chronic 08/11/12) Cervical spondylosis (Chronic 02/11/14) Multiple sclerosis (Chronic) secondary progressive HTN (hypertension) (Acute) Vitamin B12 deficiency (Chronic) SHERRELL (generalized anxiety disorder) (Chronic) Depression (Chronic) Chronic low back pain (Acute) Monocular diplopia (Chronic) Mild cognitive impairment (Acute) Walker as ambulation aid (Chronic) uses in her apartment Uses wheelchair (Chronic) when out of her apartment motorized Urinary incontinence, mixed (Acute) uses adult diapers Fecal incontinence (Acute) Osteoarthritis of carpometacarpal joint of left thumb (Acute) Tobacco dependence due to cigarettes (Acute) Lung nodule, solitary (Acute) 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 SBO (small bowel obstruction) multiple; last May 2018 Tenosynovitis, de Quervain left sided Surgical History H/O hemorrhoidectomy History of bowel resection History of cataract surgery History of repair of hiatal hernia paproscopic repair Hx of arthroscopy of right knee Hx of hysterectomy S/P trigger finger release Status post de Quervain's release surgery Status post total right knee replacement Family History Mother , AGE 87 Diabetes Stroke Father , AGE 83 lung cancer Cancer Heart disease CABG x 4 Brother , AGE 70 motor vehicle crash Motor vehicle accident Brother Family estrangement Brother No problems noted. Daughter Family estrangement ok relationship Daughter Family estrangement emotional estrangement Social History Smoking/Tobacco Use Status: Current every day Tobacco Type: cigarettes Tobacco: How many years used: 60 Quit status: not considering quitting Second Hand Exposure: Yes Counseling given: provider counseling Smoking risk assessment performed?: Yes Alcohol Intake: never Drug use: Never Substance use type: does not use Caregiver/Support person: Yes (has snf home caregiver faraz [email or web address]) [facility] Household members: none Housing: apartment Number of Children: 2 number of grandchildren: 6 Communication Needs: Hard of Hearing and Corrective Lenses Education Level: high school Do you need help understanding health information?: Often 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 Pets and animals: No Sexually active: No Do you think of yourself as: straight/heterosexual Current gender identity: female What is your relationship status?: How often do you talk on the phone with friends or family?: twice per week How often do you get together with friends or relatives?: three or more times per week How often do you attend buddhist or anabaptist services?: decline to answer Do you belong to any clubs or organized social groups?: no Panel score (0-1 are the most socially isolated patients): 1 What type of physical activity do you participate in: none Duration: < 15 minutes/day Frequency: daily Marilee/Jewish: Bahai Special marilee needs: No Seatbelt use: always Helmet use: No Drive intox or ride w/intox helper driver: No Working smoke detector in home: Yes Fire extinguisher in home: Yes Do you feel safe at home: Yes Do you feel safe in your relationship?: Yes Exam <Minerva Leyva DO - Last Filed: 08/03/22 09:45> Const General: cooperative, uncomfortable and acute distress moderate Orientation: alert, awake and oriented x3 HENMT Head: normal to inspection Face and sinus: normal facial exam Eyes General: appearance normal, both eyes and all related structures Pupils: PERRL EOM: EOM intact bilaterally Neck Neck: normal visual inspection and No submandibular swelling Lymphatic: no lymphadenopathy noted Chest Chest: normal inspection of the chest and no tenderness Resp Effort & Inspection: normal respiratory effort and able to speak in complete sentences Auscultation: clear to auscultation bilaterally Cardio Rate: regular rate Rhythm: regular rhythm GI Inspection: normal to inspection and distended Palpation: soft, not firm, not rigid and tender (diffuse) Auscultation: hypoactive bowel sounds Skin General skin exam: no rashes or lesions noted Neuro General: patient alert, patient awake and patient oriented x3 Cognition: normal cognition Speech: speech normal Motor: muscle tone normal throughout Sensory Exam: no sensory deficits noted Extrem General: normal to inspection, full ROM, capillary refill normal, no calf tenderness bilaterally and no edema Psych Appearance: grossly normal Mental Status: mental status grossly normal Speech and Movement: speech and movement normal Affect: normal affect Course <Minerva Leyva DO - Last Filed: 08/03/22 09:45> Vital Signs Vital signs: Vital Signs Temperature 96.6 F L 08/02/22 18:20 Pulse 94 H 08/02/22 18:20 Respiratory Rate 20 12/22/22 18:20 Blood Pressure 143/64 H 08/02/22 18:20 Pulse Oximetry 96 08/02/22 18:20 Temperature 96.6 F L 08/02/22 18:20 Temperature Source Skin 08/02/22 18:20 Pulse 94 H 08/02/22 18:20 Respiratory Rate 20 08/02/22 18:20 Respiratory Effort 08/02/22 18:39 Blood Pressure 143/64 H 08/02/22 18:20 Blood Pressure Position Supine 08/02/22 18:20 Pulse Oximetry 96 08/02/22 18:20 Oxygen Delivery Method Room Air 08/02/22 18:20 Oxygen Flow Rate 0 08/02/22 18:20 Pain Level 10 08/02/22 18:20 Lab/Test Results Lab/Test Results: Laboratory Tests Range/Units 08/02/22 18:50 WBC (4.4-10.8) 10^3/uL 15.23 H RBC (3.93-5.22) 10^6/uL 4.41 Hgb (11.2-15.7) g/dL 13.5 Hct (36.0-46.0) % 41.1 MCV (80-95) fL 93 MCH (27.0-33.0) pg 30.6 MCHC (32.0-36.0) % 32.8 RDW (11.7-14.6) % 14.3 Plt Count (130-400) 10^3/uL 286 MPV (8.0-11.0) fL 9.1 Immature Gran % 0.5 Neutrophils % 74.2 Lymphocytes % 19.6 Monocytes % 4.5 Eosinophils % 0.7 Basophils % 0.5 Nucleated RBC % (0.0-0.3) % 0.0 Absolute Neutrophils (1.2-6.7) 10^3/uL 11.30 H Absolute Lymphocytes (1.2-3.4) 10^3/uL 2.99 Absolute Monocytes (0.1-0.8) 10^3/uL 0.69 Absolute Eosinophils (0.0-0.7) 10^3/uL 0.11 Absolute Basophils (0.0-0.2) 10^3/uL 0.08 Sign Out <Minerva Leyva, DO - Last Filed: 08/03/22 09:45> Sign Out Data: Sign Out Comment: Abdominal pain and nausea with history of small bowel obstruction. Follow-up on labs and imaging and final disposition. Last updated by Minerva Leyva DO at 08/02/22 19:50
[2022-08-02] MEDS: HYDROmorphone 2 MG/ML SYR 0.5 MG IVP ×2 (19:11→21:08)
[2022-08-02] MEDS: Normal Saline 1,000 ML 150 ML IV (19:13)
[2022-08-02] MEDS: Ondansetron 4 MG/2 ML VIAL IVP ×2 (19:13→20:45)
[2022-08-02 19:18] LABS: ALT 22 U/L (14-59); AST 17 U/L (15-37); Alkaline Phosphatase 91 U/L (46-116); Anion Gap 14.4 mmol/L (3-11); BUN 12 mg/dL (7-18); Bilirubin, Total 0.3 mg/dL (0.2-1.0); CO2 21.6 mmol/L (21.0-32.0); CREATININE 1.1 mg/dL (0.55-1.02); Calcium 9.9 mg/dL (8.5-10.1); Chloride 102 mmol/L (98-107); Estimated GFR 52.08 (mL/min/1.73m2); Glucose 190 mg/dL (74-106); Potassium 3.4 mmol/L (3.5-5.1); Sodium 138 mmol/L (136-145)
[2022-08-02 19:24] LABS: Magnesium 1.1 mg/dL (1.8-2.4); Troponin I < 50 ng/L (<or=60)
[2022-08-02 20:38] LABS: Lipase 4615 U/L (73-393)
[2022-08-02] MEDS: MAGNESIUM SULFATE 2 GM/50 ML BAG IVPB (21:09)
[2022-08-02 21:21] LABS: Bilirubin Negative (Negative); Blood Trace-intact (Negative); Clarity Sl Cloudy (Clear); Glucose 250 mg/dL (Negative); Ketones Trace mg/dL (Negative); Leukocyte Esterase Moderate (Negative); Nitrite Negative (Negative); Specific Gravity 1.025 (1.005-1.025); Urobilinogen 0.2 EU/dL (Up TO 0.2)
[2022-08-02 21:39] LABS: Bacteria Few HPF (Negative); C & S Indicated? No/Sq. Contamination; Crystals Negative HPF (Negative); Epithelial Cells Many HPF (Negative); Mucus Negative (Negative); Other Cells Moderate Renal (Negative); WBC >50 HPF (0-5)
[2022-08-02] MEDS: Normal Saline - Diluent 50 ML VIAL IJ (21:55)
[2022-08-02] MEDS: Normal Saline Flush 10 ML SYR IVP (21:58)
[2022-08-02] MEDS: Omnipaque 350 MG/ML 100 ML BTL IJ (21:58)
[2022-08-02] MEDS: Breeza Beverage 473 ML BTL PO ×2 (21:59→22:01)
[2022-08-02] MEDS: Omnipaque 350 MG/ML 50 ML BTL PO (22:01)
--- NOTE | 2022-08-02 22:39 | DI.VRAD_ITS ---
PROCEDURE INFORMATION: Exam: CT Abdomen And Pelvis With Contrast Exam date and time: 08/02/2022 9:51 PM Age: 76 years old Clinical indication: Abdominal pain; Epigastric; Prior surgery; Surgery date: 6+ months; Surgery type: Hysterectomy, bowel resection, hiatal hernia repair TECHNIQUE: Imaging protocol: Computed tomography of the abdomen and pelvis with contrast. Contrast material: OMNIPAQUE 350; Contrast volume: 100 ml; Contrast route: INTRAVENOUS (IV); COMPARISON: CT ABDOMEN PELVIS W 06/30/2022 2:23 PM FINDINGS: Liver: There is hepatomegaly and fatty infiltration of the liver. There are no focal liver lesions present. Gallbladder and bile ducts: Normal. No calcified stones. No ductal dilation. Pancreas: Normal. No ductal dilation. Spleen: Normal. No splenomegaly. Adrenal glands: Bilateral adrenal adenomas are stable from prior exam. Kidneys and ureters: Normal. No hydronephrosis. Stomach and bowel: There is diverticular disease of the colon, without evidence of acute diverticulitis. No perforation, or abscess. No signs or history of bleeding provided. Severe gastric and duodenal and proximal jejunal distension with a transition point in the mid jejunum consistent with small-bowel obstruction. This is new from prior. No obstructing lesions are seen. Appendix: The appendix is not identified with certainty, but there are no secondary C.T. findings of appendicitis. Intraperitoneal space: Unremarkable. No free air. No significant fluid collection. Vasculature: Unremarkable. No abdominal aortic aneurysm. Lymph nodes: Unremarkable. No enlarged lymph nodes. Urinary bladder: Unremarkable as visualized. Reproductive: The patient is status post hysterectomy. No adenexal masses are seen. Bones/joints: Unremarkable. No acute fracture. Soft tissues: Unremarkable. IMPRESSION: High-grade proximal small bowel obstruction. Dictated and Authenticated by: Janice Melissa MD. Ordering:JEREMY Palma MD
--- NOTE | 2022-08-02 23:00 | DI.RAD_ITS ---
Exam(s) XR ABDOMEN FLAT PLATE EXAM: 2D digital imaging was performed. CLINICAL HISTORY: s/p NG placement. COMPARISON: No exams were available for comparison TECHNIQUE: Portable supine views of the abdomen was performed. One images were obtained. FINDINGS: LUNG BASES: Clear. BOWEL GAS PATTERN: Air-filled loops of small bowel are present. FREE AIR: None. CALCIFICATIONS: No radiopaque calcifications. OSSEOUS STRUCTURES: Normal for age. OTHER FINDINGS: The tip of the enteric tube projects over the expected location of the distal stomach . IMPRESSION: Tip of the enteric tube is seen projected over the expected location of the stomach antrum. DATA REPOSITORY: RADIATION DOSE DELIVERED:
[2022-08-02 23:14] LABS: Lactate 3.7 mmol/L (0.6-1.4)
[2022-08-02 23:40] LABS: Source Nasal/Nares
[2022-08-03] VITALS (25 sets, daily range): BP systolic 91–188; BP diastolic 44–117; PULSE 67–99; RESP 12–24; TEMP 35.8–36.9; O2SAT 93–98; BMI 29.9
--- NOTE | 2022-08-03 00:02 | DI.VRAD_ITS ---
PROCEDURE INFORMATION: Exam: XR Abdomen Exam date and time: 08/02/2022 11:04 PM Age: 76 years old Clinical indication: Device placement; Gi device; Nasogastric tube; Additional info: Ng tube TECHNIQUE: Imaging protocol: Radiologic exam of the abdomen. Views: Frontal supine view of the abdomen. 1 View. COMPARISON: CT ABDOMEN PELVIS W 08/02/2022 9:51 PM FINDINGS: Tubes, catheters and devices: Enteric tube tip projects over the expected location of the gastric antrum. Gastrointestinal tract: Gaseous distention of visualized bowel loops. Bones/joints: No acute osseus lesions or fractures. Soft tissues: Unremarkable. IMPRESSION: Enteric tube tip projects over the expected location of the gastric antrum. Dictated and Authenticated by: Gurpreet Grant MD. Ordering:PETRONA Lyon MD
[2022-08-03 00:10] LABS: COVID-19 PCR Negative (Negative)
[2022-08-03] MEDS: LORazepam 2 MG/ML VIAL 0.5 MG IVP (03:03)
[2022-08-03] MEDS: ACETAMINOPHEN 1,000 MG/100 ML BTL 400 MG IVPB (03:04)
[2022-08-03] MEDS: HYDROmorphone 2 MG/ML SYR 0.5 MG IVP ×3 (05:00→20:31)
[2022-08-03] MEDS: Gastrografin 120 ML BTL PO ×2 (07:47→08:58)
[2022-08-03] MEDS: Gabapentin 300 MG CAP PO (07:47)
[2022-08-03] MEDS: DULoxetine 30 MG CAP PO (07:58)
[2022-08-03] MEDS: Omeprazole 20 MG CAPCR 40 MG PO (07:58)
[2022-08-03] MEDS: Mirabegron 25 MG TABCR PO (08:09)
[2022-08-03] MEDS: hydrOXYzine HCL 25 MG TAB PO (08:10)
--- NOTE | 2022-08-03 08:29 | PDOC.CMIN ---
- If Service Date Differs Date of service: 08/03/22 Time of Service: 08:29 Care Management Initial Assess REASON FOR HOSPITALIZATION:: SBO PAST MEDICAL HISTORY/PAST SURGICAL HISTORY:: All Active Problems . Type 2 diabetes mellitus with complication, without long-term current use of insulin (Chronic 12/02/17). Hyperlipidemia (Chronic). Vitamin D deficiency (Chronic 08/11/12). Cervical spondylosis (Chronic 02/11/14). Multiple sclerosis (Chronic). secondary progressive. HTN (hypertension) (Acute). Vitamin B12 deficiency (Chronic). SHERRELL (generalized anxiety disorder) (Chronic). Depression (Chronic). Chronic low back pain (Acute). Monocular diplopia (Chronic). Mild cognitive impairment (Acute). Walker as ambulation aid (Chronic). uses in her apartment. Uses wheelchair (Chronic). when out of her apartment. motorized. Urinary incontinence, mixed (Acute). uses adult diapers. Fecal incontinence (Acute). Osteoarthritis of carpometacarpal joint of left thumb (Acute). Tobacco dependence due to cigarettes (Acute). Lung nodule, solitary (Acute). 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 Small bowel obstruction (Acute). Medical History . Anemia in chronic kidney disease. Diverticulosis. Migraine headache without aura (01/31/15). Nephrolithiasis. while on Topamax. Osteoporosis (02/03/14). bone density scan 2013; treated with alendronate x 5 years, discontinued 02/2021. Palliative care patient. Had one visit with Palliative care clinic - follow up pending. SBO (small bowel obstruction). multiple; last May 2018. Tenosynovitis, de Quervain. left sided. Surgical History . H/O hemorrhoidectomy. History of bowel resection. History of cataract surgery. History of repair of hiatal hernia. paproscopic repair. Hx of arthroscopy of right knee. Hx of hysterectomy. S/P trigger finger release. Status post de Quervain's release surgery. Status post total right knee replacement PREVIOUS FUNCTIONAL STATUS/SOCIAL/FAMILY SUPPORTS:: Jolanta lives alone at the [facility] in [place]. Jolanta shares that she has no family that she cares to identify other than a Nephew Rito, who lives in [place]. She reports that she recently appointed him to be her DPOA. Jolanta reports that she is independent at baseline and uses [facility] for transportation and is connected to [facility], [facility] and receives VNA and Case Management services through [facility] CURRENT FUNCTIONAL STATUS:: Jolanta is lying in bed when CM met with her. She is awake, alert and able to engage in conversation. Communication is limited by her NG tube and pain when she coughs. ADVANCE DIRECTIVES:: Not on file. Per pt her Nephew Rito is her DPOA. Has patient been provided with info about the portal/API?: Yes Did the patient sign up for the portal?: No CODE STATUS:: Full Code INSURANCE COVERAGE / FINANCIAL ISSUES:: Medicaid. Medicare CURRENT HOME/COMMUNITY SERVICES/EQUIPMENT:: [facility] RN/PT/AIRFRAME AND POWERPLANT MECHANIC. Senior [facility]. FWW, motorized wheelchair, tub bench, grab bars, hand rails. [facility]. [facility] PRIMARY CARE PHYSICIAN:: Josy Thomas POTENTIAL DISCHARGE NEEDS:: Discharge plan of care, follow up appointments, evaluation for increased community support. PATIENT/FAMILY EDUCATION NEEDS:: Review discharge instructions, limitations, medications and plan to follow up with PCP and community providers. Discuss ask me three and goals of self care. TRANSPORTATION:: via [facility] w[facility] van. PLAN:: Anticipate, Jolanta will discharge home via [facility] w[facility] van with resumption of [facility] RN/PT/AIRFRAME AND POWERPLANT MECHANIC and community supports. She will follow up with community providers and discharge plan of care as prescribed. CM will continue to support Jolanta and assess her discharge needs.
--- NOTE | 2022-08-03 08:52 | HPE_ITS ---
Date of service: 08/03/22 Time of Service: 05:30 Assessment and Plan Assessment and plan (1) Small bowel obstruction: Status: Acute Assessment and plan: There appears to be a relatively high-grade partial small bowel obstruction in the proximal small intestine. X-ray after insertion of the nasogastric tube demonstrates appropriate decompression of the dilation. Her exam is reassuring. I think for now, the best course of action is a Gastrografin challenge. I think she has a good understanding that if her symptoms recur, or if the contrast fails to pass through the small intestine into the colon, then she would likely need exploratory surgery and what I would anticipate is lysis of adhesions. History of Present Illness History of Present Illness Chief Complaint: Abdominal pain Narrative: Jolanta is a 76-year-old woman who came to the emergency department last night with the cute onset of sharp mid epigastric abdominal pain that was associated with nausea. She describes it as a stabbing pain, that is worse with movement. She feels bloated. She denies any change in the character or frequency of her bowel habits. There are no specific relieving factors. She underwent some lab work last night that demonstrated a leukocytosis. Subsequently, she underwent a CAT scan of the abdomen and pelvis that demonstrated a massively dilated stomach, duodenum, and proximal small intestine. Nasogastric tube was inserted, and she had some relief of her symptoms. This morning, she says she is feeling a little bit better. She still has abdominal discomfort with movement. She denies any nausea. She has no appetite right now, but she is thirsty. Review of Systems Constitutional Constitutional: Denies body ache(s), Reports fatigue, Denies fever(s) and Reports lethargy Eyes Eyes: Reports system reviewed and no additional complaints, except as documented ENT Ears, Nose, Mouth, and Throat: Reports system reviewed and no additional complaints, except as documented Cardiovascular Cardiovascular: Denies chest pain, Denies irregular heart rhythm and Denies dyspnea Respiratory Respiratory: Denies chest congestion, Denies cough and Denies dyspnea Gastrointestinal Gastrointestinal: Reports abdominal pain, Reports belching, Reports bloating, Denies coffee ground emesis, Reports nausea and Denies vomiting Genitourinary Genitourinary: Reports system reviewed and no additional complaints, except as documented Musculoskeletal Musculoskeletal: Denies back pain and Denies myalgias Neurologic Neurologic: Reports system reviewed and no additional complaints, except as documented Endocrine Endocrine: Reports fatigue Hematologic/Lymphatic Hematologic/Lymphatic: Denies easy bleeding and Denies easy bruising PFSH All Active Problems Type 2 diabetes mellitus with complication, without long-term current use of insulin (Chronic 12/02/17) Hyperlipidemia (Chronic) Vitamin D deficiency (Chronic 08/11/12) Cervical spondylosis (Chronic 02/11/14) Multiple sclerosis (Chronic) secondary progressive HTN (hypertension) (Acute) Vitamin B12 deficiency (Chronic) SHERRELL (generalized anxiety disorder) (Chronic) Depression (Chronic) Chronic low back pain (Acute) Monocular diplopia (Chronic) Mild cognitive impairment (Acute) Walker as ambulation aid (Chronic) uses in her apartment Uses wheelchair (Chronic) when out of her apartment motorized Urinary incontinence, mixed (Acute) uses adult diapers Fecal incontinence (Acute) Osteoarthritis of carpometacarpal joint of left thumb (Acute) Tobacco dependence due to cigarettes (Acute) Lung nodule, solitary (Acute) 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 SBO (small bowel obstruction) multiple; last May 2018 Tenosynovitis, de Quervain left sided Surgical History H/O hemorrhoidectomy History of bowel resection History of cataract surgery History of repair of hiatal hernia paproscopic repair Hx of arthroscopy of right knee Hx of hysterectomy S/P trigger finger release Status post de Quervain's release surgery Status post total right knee replacement Family History Mother , AGE 87 Diabetes Stroke Father , AGE 83 lung cancer Cancer Heart disease CABG x 4 Brother , AGE 70 motor vehicle crash Motor vehicle accident Brother Family estrangement Brother No problems noted. Daughter Family estrangement ok relationship Daughter Family estrangement emotional estrangement Social History Smoking/Tobacco Use Status: Current every day Tobacco Type: cigarettes Tobacco: How many years used: 60 Quit status: not considering quitting Second Hand Exposure: Yes Counseling given: provider counseling Smoking risk assessment performed?: Yes Alcohol Intake: never Drug use: Never Substance use type: does not use Caregiver/Support person: Yes (has jail home caregiver faraz [id number]) Details[facility] Household members: none Housing: apartment Number of Children: 2 number of grandchildren: 6 Communication Needs: Hard of Hearing and Corrective Lenses Education Level: high school Do you need help understanding health information?: Often 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 Pets and animals: No Sexually active: No Do you think of yourself as: straight/heterosexual Current gender identity: female What is your relationship status?: How often do you talk on the phone with friends or family?: twice per week How often do you get together with friends or relatives?: three or more times per week How often do you attend latter-day or congregation services?: decline to answer Do you belong to any clubs or organized social groups?: no Panel score (0-1 are the most socially isolated patients): 1 What type of physical activity do you participate in: none Duration: < 15 minutes/day Frequency: daily Marilee/Presybeterian: Orthodox Special marilee needs: No Seatbelt use: always Helmet use: No Drive intox or ride w/intox explosives truck driver: No Working smoke detector in home: Yes Fire extinguisher in home: Yes Do you feel safe at home: Yes Do you feel safe in your relationship?: Yes Meds Allergies and Home Medications Allergies Allergy/AdvReac Type Severity Reaction Status Date / Time Penicillins Allergy Intermediate Skin Rash Unverified 08/02/22 18:24 aspirin Allergy Unverified 08/02/22 18:25 miconazole Allergy Skin Rash Unverified 08/02/22 18:24 povidone-iodine Allergy Skin Rash Unverified 08/02/22 18:24 Sulfa (Sulfonamide Allergy Skin Rash Unverified 08/02/22 18:24 Antibiotics) Home Medications Medication Instructions Recorded Confirmed Type acetaminophen 650 mg 1,300 mg PO BID PRN pain #120 tabs 01/21/19 08/02/22 Rx tablet,extended release (Tylenol Arthritis Pain) hydroxyzine HCl 25 mg tablet 25 - 50 mg PO DIRECTED PRN 03/09/20 08/02/22 Rx headache #180 tabs calcium carbonate 600 mg-vitamin 1 tab PO BID #60 tab-caps 09/26/21 08/02/22 Rx D3 10 mcg (400 unit) tablet (Calcium 600 + D(3)) cholecalciferol (vitamin D3) 25 1,000 unit PO BID #180 tabs 09/26/21 08/02/22 Rx mcg (1,000 unit) tablet docusate sodium 100 mg capsule 100 mg PO BID PRN constipation 09/26/21 08/02/22 Rx #180 caps ferrous sulfate 325 mg (65 mg 325 mg PO DAILY #90 tab-caps 09/26/21 08/02/22 Rx iron) tablet multivitamin 1 tab PO DAILY #90 tabs 09/26/21 08/02/22 Rx triamcinolone acetonide 0.1 % 1 applic topical BID PRN foot rash 12/28/21 1 10/03/21 Rx topical cream #30 grams amitriptyline 100 mg tablet 100 mg PO QHS #90 tabs 01/02/22 08/02/22 Rx mirabegron 25 mg tablet,extended 25 mg PO DAILY #30 tabs 01/26/22 08/02/22 Rx release 24 hr sodium chloride 0.65 % nasal spray 2 spray intranasal QID PRN dry 02/07/22 08/02/22 Rx aerosol (Saline Nasal) nasal passages #88 mL omeprazole 40 mg capsule,delayed 40 mg PO DAILY #90 caps 03/19/22 08/02/22 Rx release magnesium oxide 400 mg (241.3 mg 400 mg PO DAILY #132 tab-caps 04/17/22 08/02/22 Rx magnesium) tablet estradiol 10 mcg vaginal tablet 10 mcg vaginal as directed PRN 05/09/22 08/02/22 Rx (Vagifem) vaginal dryness #30 tabs cyanocobalamin (vitamin B-12) 1,000 mcg PO DAILY #90 caps 06/11/22 08/02/22 Rx 1,000 mcg capsule metformin 500 mg 24 hr 500 - 1,000 mg PO .bid as directed 06/11/22 08/02/22 Rx tablet,extended release #270 tabs potassium chloride 20 mEq 20 meq PO . AFTERNOON #90 tabs 06/11/22 08/02/22 Rx tablet,extended release duloxetine 30 mg capsule,delayed 30 mg PO DAILY #30 caps 07/02/22 08/02/22 Rx release sprinkle lorazepam 0.5 mg tablet 0.5 mg PO ONCE PRN anxiety #2 tabs 07/09/22 08/02/22 Rx gabapentin 300 mg capsule 300 mg PO DIRECTED #360 tab-caps 07/11/22 08/02/22 Rx Exam Const General: cooperative, comfortable and in distress Nutritional Appearance: overweight Orientation: alert, awake and oriented x3 HENMT Head: normal to inspection Eyes General: appearance normal, both eyes and all related structures Neck Neck: normal visual inspection, full ROM and supple Thyroid: thyroid normal Resp Effort & Inspection: normal respiratory effort Auscultation: clear to auscultation bilaterally GI Inspection: distended Palpation: soft, no guarding, no hernias and tender Percussion: tympanic to percussion Auscultation: abnormal bowel sounds and high-pitched sounds Skin Wounds: no wounds Neuro General: patient alert, patient awake and patient oriented x3 Cognition: normal cognition Speech: speech normal Extrem Right upper extremity: no edema Left upper extremity: no edema Right lower extremity: no edema Left lower extremity: no edema Psych Appearance: grossly normal Results Imaging Abdomen CT scan report/results: report reviewed and image reviewed CT scan - pelvis: report reviewed and image reviewed Labs Result diagrams: 08/02/22 18:50 08/02/22 18:50 Labs: Laboratory Results - last 24 hr 08/02/22 08/02/22 08/02/22 18:50 18:50 18:50 WBC 15.23 H RBC 4.41 Hgb 13.5 Hct 41.1 MCV 93 MCH 30.6 MCHC 32.8 RDW 14.3 Plt Count 286 MPV 9.1 Immature Gran % 0.5 Neutrophils % 74.2 Lymphocytes % 19.6 Monocytes % 4.5 Eosinophils % 0.7 Basophils % 0.5 Nucleated RBC % 0.0 Absolute Neutrophils 11.30 H Absolute Lymphocytes 2.99 Absolute Monocytes 0.69 Absolute Eosinophils 0.11 Absolute Basophils 0.08 VBG Lactate Sodium 138 Potassium 3.4 L Chloride 102 Carbon Dioxide 21.6 Anion Gap 14.4 H BUN 12 Creatinine 1.1 H Est GFR (CKD-EPI 2021) 52.08 Glucose 190 H Calcium 9.9 Magnesium 1.1 L Total Bilirubin 0.3 AST 17 ALT 22 Alkaline Phosphatase 91 Troponin I < 50 Total Protein 8.0 Albumin 4.0 Lipase 4615 H Urine Color Urine Clarity Urine pH Ur Specific [place] Urine Protein Urine Ketones Urine Blood Urine Nitrite Urine Bilirubin Urine Urobilinogen Ur Leukocyte Esterase Urine RBC Urine WBC Ur Epithelial Cells Urine Crystals Urine Bacteria Urine Mucus Urine Other Ur Culture Indicated? Urine Glucose COVID-19 Source SARS-CoV-2 (PCR) Patient ABO/Rh Antibody Screen 08/02/22 08/02/22 08/02/22 21:15 23:06 23:06 WBC RBC Hgb Hct MCV MCH MCHC RDW Plt Count MPV Immature Gran % Neutrophils % Lymphocytes % Monocytes % Eosinophils % Basophils % Nucleated RBC % Absolute Neutrophils Absolute Lymphocytes Absolute Monocytes Absolute Eosinophils Absolute Basophils VBG Lactate 3.7 H* Sodium Potassium Chloride Carbon Dioxide Anion Gap BUN Creatinine Est GFR (CKD-EPI 2020) Glucose Calcium Magnesium Total Bilirubin AST ALT Alkaline Phosphatase Troponin I Total Protein Albumin Lipase Urine Color Yellow Urine Clarity Sl Cloudy Urine pH 5.0 Ur Specific [place] 1.025 Urine Protein Negative Urine Ketones Trace H Urine Blood Trace-intact H Urine Nitrite Negative Urine Bilirubin Negative Urine Urobilinogen 0.2 Ur Leukocyte Esterase Moderate H Urine RBC 5-10 H Urine WBC >50 H Ur Epithelial Cells Many Urine Crystals Negative Urine Bacteria Few Urine Mucus Negative Urine Other Moderate Renal Ur Culture Indicated? No/Sq. Contamination Urine Glucose 250 H COVID-19 Source SARS-CoV-2 (PCR) Patient ABO/Rh O Positive Antibody Screen NEGATIVE 08/02/22 23:35 WBC RBC Hgb Hct MCV MCH MCHC RDW Plt Count MPV Immature Gran % Neutrophils % Lymphocytes % Monocytes % Eosinophils % Basophils % Nucleated RBC % Absolute Neutrophils Absolute Lymphocytes Absolute Monocytes Absolute Eosinophils Absolute Basophils VBG Lactate Sodium Potassium Chloride Carbon Dioxide Anion Gap BUN Creatinine Est GFR (CKD-EPI 2020) Glucose Calcium Magnesium Total Bilirubin AST ALT Alkaline Phosphatase Troponin I Total Protein Albumin Lipase Urine Color Urine Clarity Urine pH Ur Specific [place] Urine Protein Urine Ketones Urine Blood Urine Nitrite Urine Bilirubin Urine Urobilinogen Ur Leukocyte Esterase Urine RBC Urine WBC Ur Epithelial Cells Urine Crystals Urine Bacteria Urine Mucus Urine Other Ur Culture Indicated? Urine Glucose COVID-19 Source Nasal/Nares SARS-CoV-2 (PCR) Negative Patient ABO/Rh Antibody Screen Last Vital Signs Temp 97.2 F L 08/03/22 06:41 Pulse 90 08/03/22 06:41 Resp 16 08/03/22 06:41 BP 162/86 H 08/03/22 06:41 Pulse Ox 93 08/03/22 06:41
[2022-08-03] MEDS: Normal Saline 1,000 ML 150 ML IV ×2 (09:00→20:00)
[2022-08-03] MEDS: Normal Saline Flush 10 ML SYR IVP ×2 (11:09→20:33)
--- NOTE | 2022-08-03 11:11 | W.ANESPRE ---
General Info Date of Service Date Performed: 08/03/22 Height: 5 ft 4 in Weight: 79.3 kg Body Mass Index (BMI): 29.9 Surgical Procedure: Operation Date: 08/03/22 12:05 Proposed Procedure Side Surgeon p Exploratory Laparotomy Anjum Mehta MD Meds Allergies and Home Medications Allergies Allergy/AdvReac Type Severity Reaction Status Date / Time Penicillins Allergy Intermediate Skin Rash Unverified 08/02/22 18:24 aspirin Allergy Unverified 08/02/22 18:25 miconazole Allergy Skin Rash Unverified 08/02/22 18:24 povidone-iodine Allergy Skin Rash Unverified 08/02/22 18:24 Sulfa (Sulfonamide Allergy Skin Rash Unverified 08/02/22 18:24 Antibiotics) Home Medication Medication Instructions Recorded acetaminophen 650 mg 1,300 mg PO BID PRN pain #120 tabs 01/21/19 tablet,extended release (Tylenol Arthritis Pain) hydroxyzine HCl 25 mg tablet 25 - 50 mg PO DIRECTED PRN 03/09/20 headache #180 tabs calcium carbonate 600 mg-vitamin 1 tab PO BID #60 tab-caps 09/26/21 D3 10 mcg (400 unit) tablet (Calcium 600 + D(3)) cholecalciferol (vitamin D3) 25 1,000 unit PO BID #180 tabs 09/26/21 mcg (1,000 unit) tablet docusate sodium 100 mg capsule 100 mg PO BID PRN constipation 09/26/21 #180 caps ferrous sulfate 325 mg (65 mg 325 mg PO DAILY #90 tab-caps 09/26/21 iron) tablet multivitamin 1 tab PO DAILY #90 tabs 09/26/21 triamcinolone acetonide 0.1 % 1 applic topical BID PRN foot rash 12/28/21 topical cream #30 grams amitriptyline 100 mg tablet 100 mg PO QHS #90 tabs 01/02/22 mirabegron 25 mg tablet,extended 25 mg PO DAILY #30 tabs 01/26/22 release 24 hr sodium chloride 0.65 % nasal spray 2 spray intranasal QID PRN dry 02/07/22 aerosol (Saline Nasal) nasal passages #88 mL omeprazole 40 mg capsule,delayed 40 mg PO DAILY #90 caps 03/19/22 release magnesium oxide 400 mg (241.3 mg 400 mg PO DAILY #132 tab-caps 04/17/22 magnesium) tablet estradiol 10 mcg vaginal tablet 10 mcg vaginal as directed PRN 05/09/22 (Vagifem) vaginal dryness #30 tabs cyanocobalamin (vitamin B-12) 1,000 mcg PO DAILY #90 caps 06/11/22 1,000 mcg capsule metformin 500 mg 24 hr 500 - 1,000 mg PO .bid as directed 06/11/22 tablet,extended release #270 tabs potassium chloride 20 mEq 20 meq PO . AFTERNOON #90 tabs 06/11/22 tablet,extended release duloxetine 30 mg capsule,delayed 30 mg PO DAILY #30 caps 07/02/22 release sprinkle lorazepam 0.5 mg tablet 0.5 mg PO ONCE PRN anxiety #2 tabs 07/09/22 gabapentin 300 mg capsule 300 mg PO DIRECTED #360 tab-caps 07/11/22 Current Visit Medications: Current Medications Generic Name Dose Route Start Last Admin Trade Name Freq PRN Reason Stop Dose Admin Amitriptyline HCl 100 mg 08/03/22 22:00 Amitriptyline 50 Mg Tab PO HS EMMA Calcium/Vitamin D 1 tab 08/03/22 08:30 08/03/22 07:59 Calcium 600mg/Vit D 200u Tab PO Not Given BID EMMA Cholecalciferol 1,000 units 08/03/22 08:30 08/03/22 07:59 Cholecalciferol (Vitamin D3) 1,000 Unit Tab PO Not Given BID EMMA Diatrizoate Meglum/Diatrizoate Sod 120 ml 08/03/22 06:00 08/03/22 08:58 Gastrografin 120 Ml Btl PO 120 ml DIRECTED EMMA Administration Docusate Sodium 100 mg 08/03/22 06:01 Docusate Sodium 100 Mg Cap PO BID PRN PRN constipation Duloxetine HCl 30 mg 08/03/22 08:30 08/03/22 07:58 Duloxetine 30 Mg Cap PO 30 mg DAILY EMMA Administration Gabapentin 300 mg 08/03/22 08:00 08/03/22 07:47 Gabapentin 300 Mg Cap PO 300 mg 0800,1400 EMMA Administration Gabapentin 600 mg 08/03/22 22:00 Gabapentin 600 Mg Tab PO HS EMMA Hydromorphone HCl 0.5 mg 08/02/22 23:02 08/03/22 11:08 Hydromorphone 2 Mg/Ml Syr IVP 0.5 mg Q4H PRN PRN Administration Hydroxyzine HCl 25 - 50 mg 08/03/22 06:45 08/03/22 08:10 Hydroxyzine Hcl 25 Mg Tab PO 50 mg TID PRN PRN Administration ANXIETY Sodium Chloride 500 mls @ 0 mls/hr 08/02/22 19:02 Saline 500ml Bag IV PRN PRN As Directed Sodium Chloride 1,000 mls @ 150 mls/hr 08/02/22 19:15 08/03/22 09:00 Saline 1000ml Bag IV 150 mls/hr INFUSION EMMA Administration IV Miscellaneous Supplies 1 each 08/02/22 19:15 Iv Access IV DIRECTED EMMA Lidocaine HCl 6 ml 08/02/22 22:00 Lidocaine 2% Jelly 6 Ml Syr TP DIRECTED EMMA Mirabegron 25 mg 08/03/22 08:30 08/03/22 08:09 Mirabegron 25 Mg Tabcr PO 25 mg DAILY EMMA Administration Omeprazole 40 mg 08/03/22 07:30 08/03/22 07:58 Omeprazole 20 Mg Capcr PO 40 mg DAILY@0730 EMMA Administration Patient's Own 10 each 08/03/22 07:54 Medication ( VG Estradiol [Vagifem] PRN PRN 10 Mcg Tablet) vaginal dryness Sodium Chloride 0 ml 08/02/22 19:02 08/03/22 11:09 Normal Saline Flush 10 Ml Syr IVP 20 ml PRN PRN Administration Sodium Chloride 0 ml 08/02/22 23:02 Normal Saline Flush 10 Ml Syr IVP PRN PRN Sodium Chloride 0 ml 08/03/22 06:01 Sodium Chloride-Nasal [place]-Adult 44 Ml Btl NS QID PRN PRN dry nasal passages PFSH Active Problems Active Problems: Problem Status Onset Code Type 2 diabetes mellitus with complication, without long-term current use of insulin 12/02/17 E11.8 Hyperlipidemia E78.5 Vitamin D deficiency 08/11/12 E55.9 Cervical spondylosis 02/11/14 M47.812 Multiple sclerosis G35 HTN (hypertension) I10 Vitamin B12 deficiency E53.8 SHERRELL (generalized anxiety disorder) F41.1 Depression F32.9 Chronic low back pain M54.5, G89.29 Monocular diplopia H53.2 Mild cognitive impairment G31.84 Walker as ambulation aid Z99.89 Uses wheelchair Z99.3 Urinary incontinence, mixed N39.46 Fecal incontinence R15.9 Osteoarthritis of carpometacarpal joint of left thumb M18.12 Tobacco dependence due to cigarettes F17.210 Lung nodule, solitary R91.1 Small bowel obstruction K56.609 Medical History Medical History Anemia in chronic kidney disease Diverticulosis Migraine headache without aura (01/31/15) Nephrolithiasis while on Topamax Osteoporosis (02/03/14) bone density scan 2013; treated with alendronate x 5 years, discontinued 02/2021 Palliative care patient Had one visit with Palliative care clinic - follow up pending. SBO (small bowel obstruction) multiple; last May 2018 Tenosynovitis, de Quervain left sided Surgical History Surgical History H/O hemorrhoidectomy History of bowel resection History of cataract surgery History of repair of hiatal hernia paproscopic repair Hx of arthroscopy of right knee Hx of hysterectomy S/P trigger finger release Status post de Quervain's release surgery Status post total right knee replacement Tobacco Smoking/Tobacco Use Status: Current every day Tobacco Type: cigarettes Passive smoking exposure: Yes Second hand exposure: Yes Counseling given: provider counseling Alcohol Alcohol Intake: never Substance Use Substance use: Never Substance use type: does not use Vital Signs and Lab Results Vital Signs Most Recent Vital Signs in EMR: Most Recent Vital Signs Temp Pulse Resp BP Pulse Ox 36.2 C L 90 16 162/86 H 93 08/03/22 06:41 08/03/22 06:41 08/03/22 06:41 08/03/22 06:41 08/03/22 06:41 Lab Results Result Diagrams: 08/02/22 18:50 08/02/22 18:50 Blood Type / Crossmatch: Patient ABO/Rh O Positive 08/02/22 Antibody Screen NEGATIVE 08/02/22 Complete Blood Count: White Blood Count 15.23 10^3/uL (4.4-10.8) H 08/02/22 18:50 Red Blood Count 4.41 10^6/uL (3.93-5.22) 08/02/22 18:50 Hemoglobin 13.5 g/dL (11.2-15.7) 08/02/22 18:50 Hematocrit 41.1 % (36.0-46.0) 08/02/22 18:50 Platelet Count 286 10^3/uL (130-400) 08/02/22 18:50 Venous Blood Lactate 3.7 mmol/L (0.6-1.4) H* 08/02/22 23:06 Complete Metabolic Panel: Sodium 138 mmol/L (136-145) 08/02/22 18:50 Potassium 3.4 mmol/L (3.5-5.1) L 08/02/22 18:50 Chloride 102 mmol/L (98-107) 08/02/22 18:50 Carbon Dioxide 21.6 mmol/L (21.0-32.0) 08/02/22 18:50 BUN 12 mg/dL (7-18) 08/02/22 18:50 Creatinine 1.1 mg/dL (0.55-1.02) H 08/02/22 18:50 Est GFR (CKD-EPI 2020) 52.08 (mL/min/1.73m2) 08/02/22 18:50 Magnesium 1.1 mg/dL (1.8-2.4) L 08/02/22 18:50 Calcium 9.9 mg/dL (8.5-10.1) 08/02/22 18:50 Albumin 4.0 g/dL (3.4-5.0) 08/02/22 18:50 Glucose 190 mg/dL (74-106) H 08/02/22 18:50 Hemoglobin A1c 6.5 % (<5.7) H 07/31/22 13:50 Liver Function Panel: Alanine Aminotransferase (ALT/SGPT) 22 U/L (14-59) 08/02/22 18:50 Aspartate Amino Transf (AST/SGOT) 17 U/L (15-37) 08/02/22 18:50 Coagulation Panel: No Data to Display Cardiac Panel: Troponin I < 50 ng/L (<or=60) 08/02/22 Arterial Blood Gas: No Data to Display Venous Blood Gas: No Data to Display Pancreas Panel: Lipase 4615 U/L (73-393) H 08/02/22 18:50 Thyroid Panel: Thyroid Stimulating Hormone (TSH) 1.13 uIU/mL (0.36-3.74) 07/31/22 13:50 Infectious Disease: Coronavirus (COVID-19)(PCR) Negative (Negative) 08/02/22 23:35 Coronavirus 2019 Source Nasal/Nares 08/02/22 23:35 Blood Cultures: No Data to Display Toxicology Panel: No Data to Display Imaging and Studies Imaging and Studies Study information below may be from another EMR and interpreted by another provider. Please see original notes in EMR for more complete details. EKG Summary: Conclusion Sinus rhythm...normal P axis, V-rate 60- 99 Probable left atrial enlargement...P >50mS, <-0.10mV V1. Sinus. Normal axis. No STEMI. I have reviewed and interpreted ECG and agree with software generated interpretation. I have reviewed and I agree with the emergency room physician's ECG interpretation. 08/02/22 Anesthesia Assessment and Plan Anesthesia History Personal History: No History of Anesthesia Complications Family History: No Family History of Anesthesia Complications Exercise Tolerance Exercise Tolerance: Metabolic Equivalents<4 Pertinent Negatives Pertinent Negatives: No Symptoms of GERD, No Major Cardiovascular Symptoms or Complaints, No Major Pulmonary Symptoms or Complaints and No History of CVA/TIA Cardiac & Pulmonary Exam Cardiac Exam: Normal S1/S2 Heart Sounds Pulmonary Exam: Clear Bilateral Breath Sounds Cardiac and Pulmonary Comment:: COPD Implantable Cardiac Device Does patient have a Pacemaker or an ICD?: No Airway Exam Known Difficult Airway: No Mallampati Class: 3 Mouth Opening: Normal (> 3cm) Thyromental Distance: Greater than 3 cm Neck Range of Motion: Full ROM Neck Circumference: Normal Teeth Condition: Edentulous ASA Classification ASA Score: ASA 3 Emergency Case?: No NPO Status NPO Status: NPO Clears >2 hours, Solids >8 hours Anesthesia Plan Resuscitation Status: Full Code Anesthesia Technique: General Anesthesia Airway Planned: Endotracheal Tube Pain Management: Epidural Monitors Used: Standard Monitors
[2022-08-03] MEDS: ceFAZolin 2 GM/50 ML BAG 150 GM (12:15)
[2022-08-03] MEDS: Bupivacaine 0.25% Pres-Free 30 ML VIAL (12:34)
[2022-08-03] MEDS: FentaNYL/ROPIvacaine 2 mcg/ml and 0.1% 200 ML CADD Cassette EP (12:44)
--- NOTE | 2022-08-03 12:56 | W.ANESNEU ---
Epidural/Spinal Catheter Date Performed: 08/03/22 Procedure Start: 11:50 Procedure Stop: 11:58 Requesting Provider: Anjum Mehta Procedure Location: PACU Reason Performed: Postoperative Analgesia Standard Monitors Applied: Blood Pressure and SpO2 Patient Position: Sitting Sedation Given (Indicate Dose Given): No Sedation given Patient Mental Status: Awake Sterility: Hand Hygiene, Surgical Cap, Surgical Mask, Sterile Gloves, Sterile Drape/Sheet and Chlorhexidine Procedure Location: L1-L2 Interspace Epidural Needle: Tuohy 18 Gauge Needle Length: 3.5 Inch Needle Approach: Midline Epidural Procedure: Skin Prepped, Sterile Drape Placed, 1% Lidocaine to skin and subcutaneous tissue with 25G needle, Tuohy Needle placed, RITA to Saline Used, Epidural Catheter Placed, Negative Heme, Negative CSF Flow and Tuohy Needle Removed Catheter Placed?: Catheter Placed Test Dose (Indicate Dose Given): 3ml 1.5% Lidocaine with 1:200K Epinephrine Given and Negative Test Dose Loss of Resistance Depth (cm): 7 Catheter depth at skin (cm): 12 Dressing: Sorbaview Dressing Placed, Mastisol Used and Dressing reinforced with Tape Epidural Provider Bolus (Indicate Dose Given): None Given Additives (Indicate Dose Given ): None Infusion Medication: No Infusion Started Block Level: N/A Paresthesia: Left Paresthesia Duration: Transient Ultrasound: Not Used Number of Attempts (See previous attempts in note section): 1 Procedure Tolerated: No Complications Procedure Outcome: Successful Procedure Comment:: Plan to dose intraop. Performed By: Dania Mcdaniel
--- NOTE | 2022-08-03 14:20 | NUR.NOTE ---
Nursing Note: MD in to see Pt. declared she was going to operating room and needed surgery. Pt nervous. Gagging. emesis bag given. Pt c/o abd pain. IVP diladid given. unhooked NG tube from suction. Pt brought to PACU.
[2022-08-03] MEDS: Lactated Ringers 1,000 ML 30 ML IV (14:40)
--- NOTE | 2022-08-03 15:00 | DI.RAD_ITS ---
Exam(s) XR ABDOMEN FLAT PLATE EXAM: 2D digital imaging was performed. CLINICAL HISTORY: gastrografin challange for small bowel obstruction. COMPARISON: CR,XR XR ABDOMEN FLAT PLATE from 08/02/2022 TECHNIQUE: Supine views of the abdomen performed. Two images were obtained. FINDINGS: BOWEL GAS PATTERN: There again seen distended loops of proximal small bowel. The Gastrografin has no t progressed beyond the proximal dilated small bowel. The tip of the enteric tube is seen in the bod y of the stomach. CALCIFICATIONS: No radiopaque calcifications. OSSEOUS STRUCTURES: Normal for age. OTHER FINDINGS: There is contrast seen in the urinary bladder from the patient's recent CT scan. IMPRESSION: 1. Findings consistent with a proximal small bowel obstruction. 2. Tip of the enteric tube is in good position in the body of the stomach. DATA REPOSITORY: RADIATION DOSE DELIVERED:
--- NOTE | 2022-08-03 15:10 | DI.RAD_ITS ---
Exam(s) XR PORTABLE CHEST AP EXAM: XR PORTABLE CHEST AP CLINICAL HISTORY: Central line placement. Patient in PACU TECHNIQUE: 2D digital imaging was performed of the chest. One image was obtained. An AP view was ob tained. COMPARISON: CR XR CHEST 2V PA LATERAL from 02/19/2022 FINDINGS: MEDIASTINUM: Normal. HEART: Normal. PULMONARY VASCULATURE: Normal. LUNGS: There does appear to be an opacity in the retrocardiac region in the left base. PLEURAL SPACE: No right pleural effusion. No pneumothorax. The left costophrenic angle is obscured by the heart. A small left pleural effusion cannot be excluded. BONE:Within normal limits for the patient's age. OTHER FINDINGS:The tip of the left IJ central venous catheter looks to lie within the left brachiocep halic vein. The tip of the enteric tube is seen within the stomach. There is a small amount of resi dual contrast seen within the stomach. Skin truman are seen at the inferior aspect of the film. IMPRESSION: 1. The tip of the left IJ catheter appears to lie in the left brachiocephalic vein. No pneumothorax. 2. The tip of the enteric tube is seen within the stomach. 3. Question of a left basilar infiltrate and possible small left pleural effusion. DATA REPOSITORY: RADIATION DOSE DELIVERED:
--- NOTE | 2022-08-03 16:16 | BOWEL_PTH ---
PATIENT: Lorie Costa LOC: U#:[id number] AGE/SX: 76/F ROOM: 214 RE08/03/[address]: Anjum Mehta MD : 1945 BED: A DIS: 08/31/2022 SPEC #: [id number] RECD: 08/07/22 13:03 STATUS: NAKITA REQ #: [id number] RADAMES: 08/03/22 16:[address]: Anjum Mehta DEPT: Surgical Specimen RECD BY: Katy Rawls ENTERED: 08/07/22 13:03 SP TYPE: Bowel OTHR DR: Josy Thomas [facility] Tissues: 1 - BOWEL RESECTION(OTHER) Procedures: GROSS AND MICRO LEVEL 5 Comments: [id number]
--- NOTE | 2022-08-03 16:43 | W.ANESVAS ---
Central Venous Line Placement Date Performed: 08/03/22 Procedure Time: 16:08 Procedure Location: Operating Room Requesting Provider: Anjum Mehta Standard Monitors Applied: ECG, Blood Pressure, SpO2 and ETCO2 Pt. Position: Supine Timeout Performed: Yes Sedation Given (Indicate Dose Given): No Sedation given Patient Mental Status: Performed under general anesthesia Sterility: Hand Hygiene, Surgical Cap, Surgical Mask, Sterile Gloves, Sterile Drape/Sheet, Sterile Gown, Eye Protection and Chlorhexidine Laterality: Left Insertion Site: Internal Jugular (IJ) Central Line Type: 7 Macedonian and Triple Lumen Catheter Insertion Procedure: Vessel accessed with needle, Guidewire placed with ease, Extension tubing fills with blood, then empties easily with gravity, Dermatotomy (skin cathryn) made with scalpel, Dilator placed without resistance, Introducer/Catheter placed without resistance, Guidewire removed and Claves placed, blood withdrawn, ports flushed and clamped Dressing: Sorbaview Dressing Placed, BioPatch and Sutured in Place Catheter Depth at Skin (cm): 14 Placement Confirmation: Confirmation X-Ray Ordered and Correct Tip Placement Confirmed by X-Ray Ultrasound: Sterile probe cover and gel used Ultrasound Image Saved?: Yes Number of Attempts (See previous attempts in note section): 1 Procedure Tolerated: No Complications and Patient tolerated well Procedure Outcome: Successful Performed By: Emanuel Pearson
--- NOTE | 2022-08-03 17:05 | W.PM.OP ---
Date of service: 08/03/22 Time of Service: 17:06 Operative Note Operative Note DATE OF PROCEDURE: 08/03/22 PRE-OP DIAGNOSIS: High-grade small bowel obstruction POST-OP DIAGNOSIS: other (High-grade small bowel obstruction from abdominal adhesions and visceral block) PROCEDURE: Exploratory laparotomy, extensive adhesiolysis, segmental small bowel resection with enteroenterostomy SURGEON: Anjum Mehta [facility] APPRAISER: Michelle Silva [facility] APPRAISER: Kelley Swartz ANESTHESIA TYPE: General LMA/ETT Refer to Anesthesia Record ESTIMATED BLOOD LOSS: 200 PATHOLOGY: other (Small intestine) COMPLICATIONS: None Patient was transported to: PACU Patient's condition: stable Indications: Jolanta is a 76-year-old woman who presented to the hospital with acute onset of sharp stabbing abdominal pain. She had a leukocytosis to 15,000, and a CAT scan consistent with a high-grade partial small bowel obstruction. Nasogastric tube was inserted, and she had some relief of her symptoms. We attempted a Gastrografin challenge, however nearly immediately after administering the Gastrografin, she developed worsening abdominal pain and nausea. Nasogastric tube was returned to suction, and we did obtain an x-ray that demonstrated dilation of the stomach and small bowel with retained contrast. Based on these factors, I discussed various treatment options with her. I recommended exploratory laparotomy, and I explained the risks and the benefits. She was able to provide informed consent, we moved to the operating room for emergency laparotomy. Findings: Extensive abdominal adhesions resulting in a visceral block Procedure Description: After the initiation of general endotracheal anesthesia, I inserted a Greene catheter in the usual fashion. Next, we prepped and draped the anterior abdominal wall. I made a midline laparotomy incision and dissected down to the fascia. I opened the fascia sharply along the length of the incision. Immediately upon entering the peritoneal cavity, there were dense adhesions of the greater omentum to the anterior abdominal wall. I tediously dissected these adhesions free from the abdominal wall gaining better access to the lateral aspects of the abdomen. After mobilizing some of the greater omentum, it was evident that the underlying small intestine was all adhered into a large single visceral block. After dividing some of the attachments of the greater omentum and the deep pelvis (from adhesions) I was able to reflect the majority of the greater cephalad. I was able to identify the transverse colon and the mesocolon down to the ligament of Treitz. Fourth portion of the duodenum was massively dilated. There were adhesions to the posterior abdominal wall creating a kinking effect on the proximal jejunum as it entered into a large densely adherent visceral block of small intestine. It was clear that some of of the proximal small intestine was dilated, and that the adhesion described above was not necessarily the culprit source of the obstruction. Furthermore, I could palpate what felt like inspissated succus within the proximal small intestine. Therefore, I began a tedious dissection of the loops of small intestine in order to relieve any proximal obstruction. Using mostly sharp dissection with Metzenbaum scissors, I was able to mobilize the entirety of the jejunum as it tapered down towards the ileum. Despite careful dissection, there were several areas of attenuated small bowel wall. They were not amenable to simple imbrication. Furthermore, there were several portions that appeared chronically dilated with little evidence of peristalsis. I did not see any signs of overt ischemia. There were no perforations. In order to optimize her chances of a favorable recovery, I felt that resection of the segment of small intestine was the safest course of action. Therefore, after identifying the healthiest portions of proximal small intestine, and a suitable distal target, I created small rents in the small bowel mesentery with hemostats. I passed a 60 mm JEWELS stapler and divided the small intestine with sequential fires of the blue loads. Next, I divided the mesentery with the LigaSure. The specimen was then cut free and passed off the field. I examined the mesenteric leaflet, and it was hemostatic along the dissection line. Next, I ranged several confirmations of the small bowel in order to optimize the anastomosis. The most favorable position was a side to side antiperistaltic arrangement. Therefore, I cut the staple lines at the corners, and performed an antimesenteric [id number] stapled anastomosis using the 60 mm JEWELS blue stapler. The enteroenterostomy was widely patent, and it appeared hemostatic. I closed the common enterotomy by approximating the mucosal layer with a running PDS suture, and imbricating that suture line with interrupted silk stitches. Close the mesenteric defect here. Next, I irrigated the surgical field. There was no bleeding. I then returned the small intestine in its entirety to its normal anatomic positioning. I should mention that there is a distal enteroenterostomy from a previous operation. Appeared to be in the terminal ileum. It was patent, and there was no evident pathology in this area. Additionally the large intestine along its length appeared normal. Again, having return the small intestine to its normal position, laid the transverse colon back down, and arrange the greater omentum appropriately. I was able to palpate the nasogastric tube in the stomach although I could not visualize the stomach directly because of adhesions. I then closed the fascia with a running 2-0 PDS suture. I irrigated the overlying skin and soft tissues and obliterated the potential space with interrupted Vicryl stitches. I closed the skin with surgical stapler, and I applied a large parrish dressing in order to manage any effluent from the wound, and minimize shear forces on the abdominal wall.
--- NOTE | 2022-08-03 17:23 | DI.VRAD_ITS ---
PROCEDURE INFORMATION: Exam: XR Chest Exam date and time: 08/03/2022 4:53 PM Age: 76 years old Clinical indication: Other vascular access device placement or adjustment; Central line, non-tunnelled TECHNIQUE: Imaging protocol: Radiologic exam of the chest. Views: 1 view. COMPARISON: CT CHEST WO 06/06/2022 8:21 AM FINDINGS: Tubes, catheters and devices: Left IJ central line with its tip in the innominate vein. NG tube appropriately enters the stomach. Lungs: Subsegmental consolidation in the retrocardiac left lung base. Possible atelectasis or minor infiltrate. Small benign calcified granuloma in the right upper lobe measuring 3 mm. Pleural spaces: Minor left pleural effusion suggested. No pneumothorax. Heart/Mediastinum: Normal heart size. Bones/joints: Thoracic spine degenerative change. Soft tissues: Midline surgical skin closure truman partially visible in the upper abdomen. IMPRESSION: 1. Left IJ central line with tip in the innominate vein. 2. NG tube enters the stomach. 3. Can not exclude minor retrocardiac subsegmental consolidation. This may represent a mild infiltrate or atelectasis. 4. Blunting of left costophrenic angle may represent a minor left pleural effusion. Dictated and Authenticated by: Patrick Webster MD. Ordering:MAYLIN Castellanos MD
[2022-08-03] MEDS: fentaNYL 100 MCG/2 ML VIAL IVP (18:25)
--- NOTE | 2022-08-03 19:03 | PDOC.ANES ---
Date of service: 08/03/22 Time of Service: 19:03 Anesthesia Note Report Anesthesia Note: Patient brought to her room, 212, and report given to floor RN. In the presence of OR and floor RNs I appropriately locked the CADD pump to the IV pole, assured that CADD cassette was locked as well. Keyonna, floor RN, comfortable with patient, currently on O2 2lpm and arousable to voice. Reporting still having some discomfort, but feeling better than before. I will round on this patient tomorrow morning.
--- NOTE | 2022-08-03 19:08 | W.ANESPOSTOP ---
Postoperative Evaluation Date, Time and Location Date Performed: 08/03/22 Time Performed: 19:08 Patient Location: Med/Surg Vital Signs Most Recent Imported Vital Signs: Most Recent Vital Signs Temp Pulse Resp BP Pulse Ox 36.5 C 89 16 91/65 L 97 08/03/22 18:43 08/03/22 18:43 08/03/22 18:43 08/03/22 18:43 08/03/22 18:43 Pain Score Most Recent Pain Score: Most Recent Pain Score Pain Level 0 08/03/22 18:15 Assessment Mental Status: Arousable with meaningful communication Airway and Respiratory Function: Patent airway with normal (patient baseline) respiratory exam and Other (Maintaining SPO2>95% on 2lpm) Cardiovascular Function: Hemodynamically Stable Hydration Status: Adequately Hydrated Nausea & Vomiting: No Nausea or Vomiting Pain: Pain is Moderate or Severe Postoperative Pain Management: Pain being addressed with medication (25 mcg fentanyl in PACU which made patient appear more comfortable. ) Peripheral Nerve Block: Other (Epidural in place and I did increase the gtt rate and corresponding order to 12 ml/hr. )
[2022-08-03] MEDS: Ondansetron 4 MG/2 ML VIAL IVP (23:55)
[2022-08-04] VITALS (11 sets, daily range): BP systolic 125–156; BP diastolic 61–79; PULSE 86–103; RESP 12–22; TEMP 36.2–37.4; O2SAT 90–95
[2022-08-04] MEDS: Insulin Aspart 300 UNITS/3 ML PEN SC ×2 (00:32→12:33)
[2022-08-04] MEDS: HYDROmorphone 2 MG/ML SYR 0.5 MG IVP ×2 (01:09→05:15)
[2022-08-04] MEDS: Normal Saline Flush 10 ML SYR IVP ×8 (01:09→19:43)
[2022-08-04] MEDS: hydrOXYzine HCL 25 MG TAB PO ×2 (01:15→08:36)
[2022-08-04] MEDS: FentaNYL/ROPIvacaine 2 mcg/ml and 0.1% 200 ML CADD Cassette EP (02:17)
[2022-08-04] MEDS: Normal Saline 1,000 ML 150 ML IV (02:32)
--- NOTE | 2022-08-04 05:50 | ANES.NEURP_ITS ---
Epidural/Spinal Daily Note Date Performed: 08/04/22 Assessment Time: 05:05 Patient Location: Med/Surg Catheter Type in Place: Epidural Catheter Dressing Assessment: Dressing intact with good adherence Catheter Assessment: Catheter Labeled Previous Catheter Depth Noted (cm): 12 Current Catheter Depth (cm): 12 Current Medication Infusion: Ropivacaine 0.1% with Fentanyl 2mcg/ml Current Maintenance Infusion Rate (ml/hour): 12 Current PCEA Bolus Dose (ml): 3 Current Pain Score (0-10): 8 Medication Infusion Stopped, Catheter Removal Planned: Yes Sensory / Motor Block Comments: Patient reporting numbness to legs, however, full motor. Tested for cold perception and block level to T8 but patient reports extreme pain. guarding abdomen, able to localize where pain is occuring. Short rapid breathing. Asked floor RN to call surgeon. New Bolus Given or Change in Infusion Made: No Daily Management Comments: Discussed management with Dr. Fall, agreed epidural not covering pain currently. Surgeon ordering PHYSICAL THERAPIST TECHNICIAN and additional medication. Epidural removed with tip intact. Epidural therapy discontinued. Completed By: Emanuel Pearson
[2022-08-04] MEDS: Ketorolac 15 MG/ML VIAL IVP ×3 (06:05→17:40)
[2022-08-04] MEDS: Lactated Ringers 500 ML IV ×2 (06:06→14:52)
[2022-08-04] MEDS: ACETAMINOPHEN 1,000 MG/100 ML BTL 400 MG IVPB ×3 (06:07→17:40)
[2022-08-04] MEDS: HYDROmorphone 2 MG/ML SYR 1 MG IVP ×4 (06:23→21:48)
[2022-08-04 06:44] LABS: HCT 31.2 % (36.0-46.0); HGB 10.3 g/dL (11.2-15.7); MCH 30.8 pg (27.0-33.0); MCV 93 fL (80-95); MPV 9.7 fL (8.0-11.0); Platelet Count 200 10^3/uL (130-400); RBC 3.34 10^6/uL (3.93-5.22); RDW 14.6 % (11.7-14.6); RDW-SD 50.3 fL; WBC 10.19 10^3/uL (4.4-10.8)
[2022-08-04 07:09] LABS: ALT 17 U/L (14-59); AST 27 U/L (15-37); Albumin 2.5 g/dL (3.4-5.0); Alkaline Phosphatase 56 U/L (46-116); Anion Gap 9.7 mmol/L (3-11); BUN 18 mg/dL (7-18); Bilirubin, Total 0.5 mg/dL (0.2-1.0); CO2 23.3 mmol/L (21.0-32.0); CREATININE 1.1 mg/dL (0.55-1.02); Chloride 106 mmol/L (98-107); Estimated GFR 52.08 (mL/min/1.73m2); Glucose 188 mg/dL (74-106); Magnesium 1.3 mg/dL (1.8-2.4); Potassium 3.6 mmol/L (3.5-5.1); Sodium 139 mmol/L (136-145); Total Protein 5.6 g/dL (6.4-8.2)
[2022-08-04] MEDS: Lactated Ringers 1,000 ML 125 ML IV ×2 (07:36→17:42)
[2022-08-04] MEDS: Omeprazole 20 MG CAPCR 40 MG PO (08:08)
[2022-08-04] MEDS: Gabapentin 300 MG CAP PO ×2 (08:08→14:16)
[2022-08-04] MEDS: Calcium 600mg/Vit D 200U TAB 1 TAB PO ×2 (08:08→19:43)
[2022-08-04] MEDS: DULoxetine 30 MG CAP PO (08:08)
[2022-08-04] MEDS: Ondansetron 4 MG/2 ML VIAL IVP (08:48)
--- NOTE | 2022-08-04 09:14 | PGE_ITS ---
Date of Service Date of service: 08/04/22 Time of Service: 13:00 Assessment and Plan Assessment and plan (1) Small bowel obstruction: Status: Acute Assessment and plan: 76-year-old woman postop day 1 from exploratory laparotomy with small bowel resection for a severe, high?grade bowel obstruction. She is hemodynamically stable and overall is doing well considering her comorbidities and acute presentation. Her cognitive and memory issues can be traced back in the chart to at least last year and she recently saw neurology only a month ago or so. I do not think anything acute is going on and this is probably her baseline. Her pain control is definitely drastically improved compared to the report from this morning. At this time I do not see any need for any additional pain management strategies other than what we're doing. Her lab-work looks good but I do think she needs some gentle fluid replacement here and there to balance but not overload. Looks like her CODE STATUS should be DNR/DNI based off of outpatient notes from palliative care from a year ago. We will check with patient and update as appropriate. Overall plan for today is as follows: #Resuscitation IV fluids, occasional LR boluses and replacement with lactated Ringer's #N.p.o. with NG tube suction continuous, not intermittent #DVT prophylaxis #Scheduled non-? narcotic analgesia with breakthrough Dilaudid #Continue to monitor lab work, outputs and vital signs #Probably trial clear liquids tomorrow #Update Code Status Subjective Subjective Interval history since last seen: Issues with pain management earlier this morning. We stopped the epidural and started IV Tylenol, Toradol and as needed Dilaudid. This brought her pain under control and at the bedside she reports that it is not significant anymore. Nursing staff has been concerned with her mental status and that she seems confused at times. At the bedside she knows that she is in the hospital, it is wintertime and she thinks it is either Ez or few days before, she cannot member what year it is but she knows that Zay Sprague is the president. Her pain is mostly on the left side of her abdomen and the right side is not hurting. She otherwise denies any nausea. She tells me she has no family nearby. She reports that her kids are in [place] and that she lives alone. Exam Narrative Exam Narrative: General: Nontoxic, comfortable and interactive Neuro: Alert and oriented x3 ( she is unsure of the year number but knows that Celestine is president) Psych: Appropriate mood and affect however her history, insight and understanding seems like it may be mildly impaired. Abdomen: Soft, minimal distention, quite tender in the left hemiabdomen but the right is completely nontender. Dressing stained but dry. Greene catheter: Moderately dark urine in the tubing NG tube: Gene bile, 400 cc out Objective Last Vital Signs Temp 98.2 F 08/04/22 09:00 Pulse 96 H 08/04/22 09:00 Resp 17 08/04/22 09:00 BP 156/79 H 08/04/22 09:00 Pulse Ox 94 08/04/22 09:00 Laboratory Results - last 24 hr 08/04/22 08/04/22 06:25 06:25 WBC 10.19 RBC 3.34 L Hgb 10.3 L D Hct 31.2 L MCV 93 MCH 30.8 MCHC 33.0 RDW 14.6 Plt Count 200 MPV 9.7 Sodium 139 Potassium 3.6 Chloride 106 Carbon Dioxide 23.3 Anion Gap 9.7 BUN 18 Creatinine 1.1 H Est GFR (CKD-EPI 2020) 52.08 Glucose 188 H Calcium 8.0 L Phosphorus 3.0 Magnesium 1.3 L Total Bilirubin 0.5 AST 27 ALT 17 Alkaline Phosphatase 56 Total Protein 5.6 L Albumin 2.5 L
[2022-08-04] MEDS: Heparin 5,000 UNITS/ML VIAL 5000 UNITS SC ×2 (14:16→22:03)
[2022-08-04] MEDS: Cholecalciferol (Vitamin D3) 1,000 UNIT TAB 1000 UNITS PO (19:43)
[2022-08-04] MEDS: Gabapentin 600 MG TAB PO (22:02)
[2022-08-04] MEDS: Amitriptyline 50 MG TAB 100 MG PO (22:02)
[2022-08-05] MEDS: Ketorolac 15 MG/ML VIAL IVP ×5 (00:16→23:56)
[2022-08-05] MEDS: ACETAMINOPHEN 1,000 MG/100 ML BTL 400 MG IVPB ×5 (00:20→23:56)
[2022-08-05] MEDS: Lactated Ringers 1,000 ML 125 ML IV ×2 (01:30→09:12)
[2022-08-05] MEDS: HYDROmorphone 2 MG/ML SYR 1 MG IVP (04:30)
[2022-08-05] MEDS: Normal Saline Flush 10 ML SYR IVP ×3 (04:35→21:24)
[2022-08-05] MEDS: Heparin 5,000 UNITS/ML VIAL 5000 UNITS SC ×3 (06:35→22:08)
[2022-08-05 07:36] VITALS: BP 135/72; PULSE 82; RESP 16; TEMP 36.8; O2SAT 92
[2022-08-05] MEDS: Cholecalciferol (Vitamin D3) 1,000 UNIT TAB 1000 UNITS PO ×2 (08:30→21:00)
[2022-08-05] MEDS: Calcium 600mg/Vit D 200U TAB 1 TAB PO ×2 (08:30→21:00)
[2022-08-05] MEDS: Omeprazole 20 MG CAPCR 40 MG PO (08:30)
[2022-08-05] MEDS: DULoxetine 30 MG CAP PO (08:30)
[2022-08-05] MEDS: Gabapentin 300 MG CAP PO ×2 (08:30→13:31)
[2022-08-05] MEDS: Mirabegron 25 MG TABCR PO (08:30)
--- NOTE | 2022-08-05 11:16 | PGE_ITS ---
Date of Service Date of service: 08/05/22 Time of Service: 12:00 Assessment and Plan Assessment and plan (1) Small bowel obstruction: Status: Acute Assessment and plan: 76 yo woman POD 2 from ex-lap, SBR for high-grade obstruction with non-viable small bowel resected. HD stable. Bowel function uncertain but no abdominal distention, no subjective abdominal pain without palpation and minimal, non- bilious NGtube output. Overall plan: #clamp trial - 4hrs. If output less than 250cc after 4 hours, remove NG and start sip/ice chips #replace NGT loss with LR 500cc #change to resus IVF to mIVF. Patient diabetic but good glycemic control thus far. Will trial D51/2 w/40k (K+ slightly low today) and monitor glucose Q6. #non-narcotic analgesia renewed #DVT prophylaxis #remove Greene #OOB to chair and ambulate with assistance a few times. Tomorrow get PT to evaluate #re-check e-lytes in the AM. Optimistic about getting her NG tube out and starting a diet tomorrow #ensure patient is receiving necessary home meds #Remains DNR / DNI in any event of cardiac or resp failure. (None anticipated) Subjective Subjective Interval history since last seen: No events overnight. Patient denies any complaints other than being very hungry and wanting food. No N/V around NG tube. No fevers. Pain is controlled with Tylenol and Toradol. She wants to have the NG tube and the catheter removed and she wants to go smoke. No definitive bowel function. She doesn't know if she has passed gas or not. Exam Narrative Exam Narrative: Gen: Nontoxic, more interactive and overall looks pretty comfortable. Neuro: AxOx3 Psych: Good mood and affect, cooperative. Insight and understanding slightly limited. Doesn't seem to understand why she had surgery or the explanation of intestinal blockage. Abdomen: Soft, nondistended. Still very tender on the LEFT hemiabdomen only. The right side is completely pain-free. The dressing is stained but dry. NGT - Output from NG tube has changed from perla bile to gastric contents with bile tinge. Output has been quite minimal. I tested the NG tube at bedside. Functioning nicely on continuous suction. Greene: Urine is clear. Good volume. Objective Last Vital Signs Temp 98.2 F 08/05/22 07:36 Pulse 82 08/05/22 07:36 Resp 16 08/05/22 07:36 BP 135/72 08/05/22 07:36 Pulse Ox 92 08/05/22 07:36
[2022-08-05 12:29] LABS: Anion Gap 4.9 mmol/L (3-11); BUN 19 mg/dL (7-18); CO2 29.1 mmol/L (21.0-32.0); CREATININE 0.9 mg/dL (0.55-1.02); Calcium 8.9 mg/dL (8.5-10.1); Chloride 103 mmol/L (98-107); Estimated GFR 66.26 (mL/min/1.73m2); Glucose 105 mg/dL (74-106); Potassium 3.3 mmol/L (3.5-5.1); Sodium 137 mmol/L (136-145)
[2022-08-05] MEDS: POTASSIUM CHLORIDE/D5-0.45NACL 1,000 ML 125 MEQ IV ×2 (12:59→23:56)
[2022-08-05] MEDS: Lactated Ringers 500 ML IV (12:59)
[2022-08-05] MEDS: Pantoprazole 40 MG VIAL IVP (14:59)
[2022-08-05 15:31] VITALS: BP 139/74; PULSE 78; RESP 20; TEMP 36.5; O2SAT 92
[2022-08-05] MEDS: hydrOXYzine HCL 25 MG TAB PO (21:01)
[2022-08-05] MEDS: Amitriptyline 50 MG TAB 100 MG PO (22:07)
[2022-08-05] MEDS: Gabapentin 600 MG TAB PO (22:07)
[2022-08-06 00:02] VITALS: BP 140/75; PULSE 80; RESP 20; TEMP 36.7; O2SAT 92
[2022-08-06] MEDS: ACETAMINOPHEN 1,000 MG/100 ML BTL 400 MG IVPB ×4 (06:42→23:53)
[2022-08-06] MEDS: Heparin 5,000 UNITS/ML VIAL 5000 UNITS SC ×3 (06:42→22:04)
[2022-08-06] MEDS: Ketorolac 15 MG/ML VIAL IVP ×4 (06:43→23:55)
[2022-08-06 07:53] LABS: HCT 29.9 % (36.0-46.0); HGB 9.7 g/dL (11.2-15.7); MCH 30.1 pg (27.0-33.0); MCHC 32.4 % (32.0-36.0); MCV 93 fL (80-95); MPV 10.2 fL (8.0-11.0); Platelet Count 204 10^3/uL (130-400); RBC 3.22 10^6/uL (3.93-5.22); RDW-SD 47.8 fL; WBC 7.08 10^3/uL (4.4-10.8)
[2022-08-06] MEDS: Calcium 600mg/Vit D 200U TAB 1 TAB PO (07:53)
[2022-08-06] MEDS: Cholecalciferol (Vitamin D3) 1,000 UNIT TAB 1000 UNITS PO ×2 (07:53→19:41)
[2022-08-06] MEDS: Gabapentin 300 MG CAP PO (07:53)
[2022-08-06] MEDS: Mirabegron 25 MG TABCR PO (07:53)
[2022-08-06] MEDS: DULoxetine 30 MG CAP PO (07:53)
[2022-08-06] MEDS: Omeprazole 20 MG CAPCR 40 MG PO (07:53)
[2022-08-06 08:01] VITALS: BP 160/71; PULSE 76; RESP 18; TEMP 36.9; O2SAT 97
[2022-08-06 08:10] LABS: Anion Gap 7.7 mmol/L (3-11); BUN 10 mg/dL (7-18); CO2 28.3 mmol/L (21.0-32.0); CREATININE 0.9 mg/dL (0.55-1.02); Calcium 8.6 mg/dL (8.5-10.1); Chloride 100 mmol/L (98-107); Estimated GFR 66.26 (mL/min/1.73m2); Glucose 124 mg/dL (74-106); Potassium 3.3 mmol/L (3.5-5.1); Sodium 136 mmol/L (136-145)
[2022-08-06] MEDS: POTASSIUM CHLORIDE/D5-0.45NACL 1,000 ML 125 MEQ IV ×2 (09:07→18:00)
[2022-08-06] MEDS: hydrOXYzine HCL 25 MG TAB PO ×2 (09:10→19:42)
--- NOTE | 2022-08-06 09:26 | W.NUTCONSULT ---
Date of service: 08/06/22 Time of Service: 09:27 Nutritional Consult ASSESSMENT: 76 year old female s/p exlap POD day 4 for SBO with resection. NPO day 4. BMI 30 indicates class 1 obesity. At good nutritional status at time of hospitalization. PMH: DM2, HLD, MS,, HTN. NPO Day 4 INTERVENTION: If unable to advance diet in next 48 hours, recommend consider nutrition support. MONITORING AND EVALUATION: weight, po intake, labs Time Spent in Nutritional Counseling and Treatment: 0
--- NOTE | 2022-08-06 10:38 | PGE_ITS ---
Date of Service Date of service: 08/06/22 Time of Service: 11:00 Assessment and Plan Assessment and plan (1) Small bowel obstruction: Status: Acute Assessment and plan: 76-year-old woman postop day 3 from exploratory laparotomy and SBR. She is hemodynamically stable. Her NG tube continues to have significant output from a volume standpoint but is completely clear/gastric now. No bile at all. Abd exam is grossly benign. No definitive bowel function yet. Certainly some degree of ileus is present, but is probably starting to resolve. I don't feel strongly about leaving the NG tube in, but she is mildly unreliable. Overall plan: #another clamp trial of NGT. Gastrograffin placement at same time. If <400 after 4 hours we will remove it and start sips. If higher, we will leave it and check KUB in the AM to see where the contrast went. #Optimistic we will not need TPN and I anticipate starting oral intake at the latest tomorrow #PT eval for hopeful DC Wed #DVT ppx #non-narcotic analgesia prn #OOB #stays DNR/DNI Subjective Subjective Interval history since last seen: Complaints. Abdominal pain drastically improved. Not using narcotic pain medicine. Denies passing gas but she is really not sure. Has not had any bowel movements. Tolerated clamp trial yesterday but 400 cc out upon placing back to suction so the NG tube was left in. Has been up ambulating today without difficulty. She remembers everything we discussed yesterday and is able to recount our plans of management as well as why she is in the hospital and why she had surgery which is a significant improvement today. Exam Narrative Exam Narrative: General: Good color, nontoxic, upbeat and interactive Neuro: Alert and oriented x3 Psych: Appropriate mood and affect, better insight and understanding into her condition today Abdomen: Soft, mild distention perhaps, drastic reduction in pain to palpation which is minimal and only on the left side once again. Right side non-tender. Incision looks perfect. [place] intact. No erythema or discharge. NGT tube output is clear gastric, NO BILE. Unfortunately outputs have been somewhat high. ~[id number] in last 24 hours. Objective Last Vital Signs Temp 98.4 F 08/06/22 08:01 Pulse 76 08/06/22 08:01 Resp 18 08/06/22 08:01 BP 160/71 H 08/06/22 08:01 Pulse Ox 97 08/06/22 08:01 Laboratory Results - last 24 hr 08/05/22 08/06/22 08/06/22 11:40 07:17 07:17 WBC 7.08 RBC 3.22 L Hgb 9.7 L Hct 29.9 L MCV 93 MCH 30.1 MCHC 32.4 RDW 14.0 Plt Count 204 MPV 10.2 Sodium 137 136 Potassium 3.3 L 3.3 L Chloride 103 100 Carbon Dioxide 29.1 28.3 Anion Gap 4.9 7.7 BUN 19 H 10 Creatinine 0.9 0.9 Est GFR (CKD-EPI 2020) 66.26 66.26 Glucose 105 124 H Calcium 8.9 8.6
[2022-08-06] MEDS: Lactated Ringers 500 ML IV (11:54)
[2022-08-06] MEDS: Gastrografin 120 ML BTL 100 ML NG (12:42)
[2022-08-06 15:00] VITALS: BP 171/78; PULSE 80; RESP 17; TEMP 36.9; O2SAT 100
[2022-08-06] MEDS: Gabapentin 600 MG TAB PO (22:04)
[2022-08-06] MEDS: Amitriptyline 50 MG TAB 100 MG PO (22:04)
[2022-08-06 23:19] VITALS: BP 160/83; PULSE 94; RESP 18; TEMP 36.7; O2SAT 98
[2022-08-07] MEDS: POTASSIUM CHLORIDE/D5-0.45NACL 1,000 ML 125 MEQ IV ×3 (03:30→20:12)
[2022-08-07] MEDS: ACETAMINOPHEN 1,000 MG/100 ML BTL 400 MG IVPB ×3 (05:43→17:51)
[2022-08-07] MEDS: Ketorolac 15 MG/ML VIAL IVP ×3 (05:43→17:51)
--- NOTE | 2022-08-07 06:57 | W.PM.PROGNOT ---
Date of Service Date of service: 08/07/22 Time of Service: 06:57 Assessment and Plan Assessment and plan (1) Small bowel obstruction: Status: Acute Assessment and plan: Postop day 4 s/p exploratory laparotomy and SBR. NG tube is out, denies any nausea or vomiting. Pain well controlled Encouraged activity OOB and sitting in the chair Continue pulmonary toilet (+) BMs and flatus Will trial clear liquids this morning. Plan for d/c later this week once tolerating increased PO intake and clearance from PT I saw and examined Jolanta on August 07, 2022. She says she has been having bowel movements. She is tolerating clear liquids without any difficulty. She denies any nausea or vomiting. She says her pain is controlled, and she is eager to be discharged. Her abdomen is soft, nondistended, mildly tympanic. The incision looks clean. There is no erythema. I think we can advance her diet a little bit, she needs to be up and walking around, we need to make arrangements for discharge since she requires a fair amount of support from the community. Subjective Subjective Interval history since last seen: Arrive with patient resting in bed. She denies any nausea or vomiting. She describes her pain is well controlled at this time. Exam Const General: cooperative, healthy appearing and comfortable Orientation: alert and oriented x3 Resp Effort & Inspection: normal respiratory effort, no audible wheezes and no cough GI Inspection: incision (Midline with truman in place ) Palpation: soft, guarding and tender Objective Last Vital Signs Temp 36.7 C 08/06/22 23:19 Pulse 94 H 08/06/22 23:19 Resp 18 08/06/22 23:19 BP 160/83 H 08/06/22 23:19 Pulse Ox 98 08/06/22 23:19 Laboratory Results - last 24 hr 08/06/22 08/06/22 07:17 07:17 WBC 7.08 RBC 3.22 L Hgb 9.7 L Hct 29.9 L MCV 93 MCH 30.1 MCHC 32.4 RDW 14.0 Plt Count 204 MPV 10.2 Sodium 136 Potassium 3.3 L Chloride 100 Carbon Dioxide 28.3 Anion Gap 7.7 BUN 10 Creatinine 0.9 Est GFR (CKD-EPI 2020) 66.26 Glucose 124 H Calcium 8.6
[2022-08-07 07:17] VITALS: BP 155/74; PULSE 82; RESP 18; TEMP 37.1; O2SAT 96
[2022-08-07 08:14] LABS: Anion Gap 8.7 mmol/L (3-11); BUN 10 mg/dL (7-18); CO2 27.3 mmol/L (21.0-32.0); CREATININE 0.9 mg/dL (0.55-1.02); Calcium 8.9 mg/dL (8.5-10.1); Chloride 100 mmol/L (98-107); Estimated GFR 66.26 (mL/min/1.73m2); Glucose 135 mg/dL (74-106); Potassium 3.6 mmol/L (3.5-5.1); Sodium 136 mmol/L (136-145)
[2022-08-07] MEDS: DULoxetine 30 MG CAP PO (08:16)
[2022-08-07] MEDS: Cholecalciferol (Vitamin D3) 1,000 UNIT TAB 1000 UNITS PO ×2 (08:17→20:12)
[2022-08-07] MEDS: Calcium 600mg/Vit D 200U TAB 1 TAB PO ×2 (08:17→20:12)
[2022-08-07] MEDS: Mirabegron 25 MG TABCR PO (08:17)
[2022-08-07] MEDS: Omeprazole 20 MG CAPCR 40 MG PO (08:17)
[2022-08-07] MEDS: Gabapentin 300 MG CAP PO ×2 (08:17→14:08)
[2022-08-07] MEDS: Ondansetron 4 MG/2 ML VIAL IVP (10:35)
[2022-08-07] MEDS: Normal Saline Flush 10 ML SYR IVP (10:36)
--- NOTE | 2022-08-07 11:14 | NUR.NOTE ---
Nursing Note: Per Dr. Mehta hold dc until tomorrow and reevaluate
[2022-08-07] MEDS: hydrOXYzine HCL 25 MG TAB PO ×2 (11:45→20:12)
[2022-08-07] MEDS: Insulin Aspart 300 UNITS/3 ML PEN SC (12:53)
--- NOTE | 2022-08-07 14:04 | IN_ITS ---
Date of service: 08/07/22 Time of Service: 14:04 PT Notes Visit Reasons: Small Bowel Obstruction Physical Therapy Inpatient Initial Evaluation Date: 08/07/2022 Referring Doctor: Juliocesar Fall MD PT Orders: PT CONSULT: Assess for patient for discharge to home on Saturday Precautions: Fall. Standard. Activity as tolerated. Patient Profile/Admitting Diagnosis: Jolanta is a 76-year-old female who presented to the ED on 08/02/2022 due to sudden onset abdominal distention, diffuse abdominal pain, and nausea. Patient is diagnosed with small bowel obstruction and is status post exploratory laparotomy, extensive adhesiolysis, segmental bowel resection, and enteroent erostomy on postoperative day 4. PMHX: All Active Problems? Type 2 diabetes mellitus with complication, without long-term current use of insulin (Chronic 12/02/17) Hyperlipidemia (Chronic) Vitamin D deficiency (Chronic 08/11/12) Cervical spondylosis (Chronic 02/11/14) Multiple sclerosis (Chronic) secondary progressive HTN (hypertension) (Acute) Vitamin B12 deficiency (Chronic) SHERRELL (generalized anxiety disorder) (Chronic) Depression (Chronic) Chronic low back pain (Acute) Monocular diplopia (Chronic) Mild cognitive impairment (Acute) Walker as ambulation aid (Chronic) uses in her apartment Uses wheelchair (Chronic) when out of her apartment motorized Urinary incontinence, mixed (Acute) uses adult diapers Home fecal incontinence (Acute) Osteoarthritis of carpometacarpal joint of left thumb (Acute) Tobacco dependence due to cigarettes (Acute) Lung nodule, solitary (Acute) 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 Anemia in chronic kidney disease Diverticulosis Migraine headache without aura (01/31/15) Nephrolithiasis while on Topamax Osteoporosis (02/03/14) bone density scan 2013; treated with alendronate x 5 years, discontinued 02/2021 Palliative care patient Had one visit with Palliative care clinic - follow up pending SBO (small bowel obstruction) multiple; last May 2018 Tenosynovitis, de Quervain left sided Surgical History? H/O hemorrhoidectomy History of bowel resection History of cataract surgery History of repair of hiatal hernia paproscopic repair Hx of arthroscopy of right knee Hx of hysterectomy S/P trigger finger release Status post de Quervain's release surgery Status post total right knee replacement Social History/Home Situation: Patient lives alone in an aprtment building with a ramp and steps to enter. She uses an elevator to reach her apartment. She receives [facility] daily for assistance with house chores, laundry and cooking. Equipment Owned/DME: FWW Subjective: Patient states that her walker is already worn out and that she may need another one pror to going home. On initial attempt at PT evalaution, patient reported 24/10 pain in the abdominal area and was nauseous. Nurse Kaleb was updated and seeing patient after the next Tylenol intake was agreed upon. Patient was in a lot better mood during second attempt in the afternoon for an evaluation. Denies headche and reports mild pain in abdominal area that did not limit walking distance. Objective: General Observation: Dressing over surgical incision. IV access through R UE. Mental Status: Alert and oriented as to person, place, time, and purpose. Able to pay attention, focus, and respond appropriately. Pain: 3-4/10 over surgical incision Vital Signs: WNL as closley monitored by nursing staff ROM: Right Upper Extremity: Shoulder Flexion WFL. Shoulder abduction WFL. Elbow flexion WFL. Wrist flexion WFL. Functional opening and closing of hand WFL. Left Upper Extremity: Shoulder Flexion WFL. Shoulder abduction WFL. Elbow flexion WFL. Wrist flexion WFL. Functional opening and closing of hand WFL. Right Lower Extremity: Hip flexion WFL. Hip abduction WFL. Knee flexion WFL. Ankle dorsiflexion WFL. Ankle plantarflexion WFL. Left Lower Extremity: Hip flexion WFL. Hip abduction WFL. Knee flexion WFL. Ankle dorsiflexion WFL. Ankle plantarflexion WFL. Strength: Right Upper Extremity: Shoulder flexors 4-/5. Shoulder abductors 4-/5. Elbow flexors 4-/5. Elbow extensors 4-/5. Integrated Logistics Programs Director strong. Left Upper Extremity: Shoulder flexors 4-/5. Shoulder abductors 4-/5. Elbow flexors 4-/5. Elbow extensors 4-/5. Integrated Logistics Programs Director strong. Right Lower Extremity: Hip flexors 3+/5. Hip abductors 3+/5. Knee flexors 4-/5. Knee extensors 3+/5. Ankle dorsiflexors 4-/5. Ankle plantarflexors 4-/5. Left Lower Extremity: Hip flexors 3+/5. Hip abductors 3+/5. Knee flexors 4-/5. Knee extensors 3+/5. Ankle dorsiflexors 4-/5. Ankle plantarflexors 4-/5. S Bed Mobility/Transfers: Supine to sit stand by assist Sit to supine with stand by assist Sit to stand with stand by assist Stand to sit with stand by assist Bed to reclining chair stand by assist Reclining chair to bed stand by assist Gait: Instructed patient with level surface ambulation of 250 feet requiring stand by assist. [place] decreased. Step height decreased. Step length decreased. No loss of balance. No shortness of breath. Balance: Static Sitting: Normal Dynamic Sitting: Normal Static Standing: Fair Dynamic Standing: Fair Special Tests: Mobility Limitations Standardized Measure [facility] AM-PAC 6 clicks Basic Mobility Inpatient Short Form: Raw Score: 23 CMS Score: 11% deficit Informed Consent/Education: Patient was instructed in purpose of PT consult and plan of care. Agreeable to proceed with established PT POC to achieve personal goals. Assessment: Patient requires the use of a front wheeled walker for all mobility ADL performance to maximize independence and reduce fall risk. Patient presents with clinical signs and symptoms consistent with current/admitting diagnoses that have resulted to mobility limitations, gait instability, generalized weakness, and overall ADL decline as demonstrated by the following impairment level findings: 1. Decreased strength to B UE/LE major muscle groups 2. Impaired sitting/standing balance 3. Impaired activity tolerance Impairments are contributing to the following functional limitations: 1. Decline in bed mobility skills 2. Decline in transfer skills 3. Difficulty with ambulation without assistive device 4. Increased completion time for mobility ADL performance 5. Increased risk for falls 6. Difficulty with managing steps alone safely Patient is assessed as a 66130 complexity based on the following: History: 76-year-old female with past medical history as indicated above Examination: Demonstrable impairment in strength, balance, and mobility level with underlying impairments and functional limitations as exhibited above as well as deficit score of 11% utilizing the [facility] Mobility Inpatient Short Form Presentation: Evolving Decision Makin moderate complexity Goals: Goals X1 week 1. Supine-Sit independent 2. Sit-Supine independent 3. Sit-Stand independent 4. Stand-Sit independent with FWW 5. Bed-Chair independent with FWW 6. Chair-Bed independent with FWW 7. Independent gait on level surface with use of FWW for at least 300 feet without report of pain nor dyspnea 8. Good static and dynamic standing balance/tolerance Plan of Care/Treatment Plan: 1-2x/day, 7 days/week x 1 week. Plan of care has been reviewed with the GEOLOGIC TECHNICIAN providing the service under Physical Therapy direction. Initiate Physical Therapy intervention for pain management as needed, strengthening, bed mobility, transfers, gait, stairs, balance training, and use of assistive device. DISCHARGE RECOMMENDATIONS: [] Home with no services [] [X] Home with services. Patient will benefit from home health PT services in order to progress mobility level using least restrictive assistive ambulatory device, assess home safety, identify additional equipment needs, and establish a functional maintenance program that will increase ability of patient to remain at home. [] Home with outpatient PT [] [] SNF for continued rehabilitation [] [] Skilled Nursing Care [] [] SNF versus LTC based on ability to participate and progress [] [X] Will need FWW for disaharge to home to reduce fall risk TREATMENT CODE/TIME: 91258 x 20 minutes, 58941 x 24 minutes beginning at 14:04 PM. Thank you for the opportunity to participate in the care of this patient. Carmen Lawrence PT, DPT, CLT [facility] [place], [place]
[2022-08-07] MEDS: Heparin 5,000 UNITS/ML VIAL 5000 UNITS SC ×2 (14:08→21:43)
[2022-08-07 15:30] VITALS: BP 161/90; PULSE 90; RESP 19; TEMP 37.3; O2SAT 96
--- NOTE | 2022-08-07 17:06 | CMPROGNOTE_ITS ---
- If Service Date Differs Date of service: 08/07/22 Time of Service: 17:06 Care Management Progress Note S/O: Jolanta remains inpatient, she reports looking forward to returning home, and reviews need for RCT W/C Van as her motorized W/C is at home. CM continues to follow. A: 76 year old female admitted to [facility] 08/03/22 for SBO P: Jolanta will discharge home via RCT w/c van with resumption of [facility] RN/PT/PLANT CULTURE MANAGER and community supports. She will follow up with community providers and discharge plan of care as prescribed. CM will continue to support Jolanta and assess her discharge needs.
[2022-08-07] MEDS: Gabapentin 600 MG TAB PO (21:43)
[2022-08-07] MEDS: Amitriptyline 50 MG TAB 100 MG PO (21:43)
--- NOTE | 2022-08-08 | DI.RAD_ITS ---
Exam(s) XR ABDOMEN FLAT PLATE EXAM: 2D digital imaging was performed. CLINICAL HISTORY: new abdominal pain after laparotomy. COMPARISON: CR XR ABDOMEN FLAT PLATE from 08/03/2022 TECHNIQUE: Supine views of the abdomen performed. FINDINGS: BOWEL GAS PATTERN: The enteric tube has been removed. There is marked gaseous distention of the stom ach. There is a small amount of residual contrast in the distal colon and rectum. CALCIFICATIONS: No radiopaque calcifications. OSSEOUS STRUCTURES: Normal for age. OTHER FINDINGS: Midline surgical truman are present. IMPRESSION: 1. Interval abdominal surgery with skin truman present. 2. Marked gaseous distention of the stomach. The distal bowel is of normal caliber. There is residu al oral contrast seen in the distal colon and rectum. DATA REPOSITORY: RADIATION DOSE DELIVERED:
[2022-08-08 00:01] VITALS: PULSE 91; RESP 24; TEMP 37.7; O2SAT 98
[2022-08-08] MEDS: ACETAMINOPHEN 1,000 MG/100 ML BTL 400 MG IVPB ×3 (00:25→23:13)
[2022-08-08] MEDS: Ketorolac 15 MG/ML VIAL IVP ×2 (00:28→06:05)
[2022-08-08] MEDS: POTASSIUM CHLORIDE/D5-0.45NACL 1,000 ML 125 MEQ IV ×3 (04:54→23:14)
--- NOTE | 2022-08-08 07:13 | W.PM.PROGNOT ---
Date of Service Date of service: 08/08/22 Time of Service: 07:13 Assessment and Plan Assessment and plan (1) Small bowel obstruction: Status: Acute Assessment and plan: Postop day 5 s/p exploratory laparotomy and SBR. Denies any nausea or vomiting Pain well controlled Encouraged activity OOB and sitting in the chair Continue pulmonary toilet Numerous BMs over the course of the day yesterday 08/07 Started clear liquids yesterday 08/07, with poor intake. Attempted to learn patient preferences however she stated she would try the clear liquids again today. Plan for d/c later this week once tolerating increased PO intake and clearance from PT Subjective Subjective Interval history since last seen: Arrive with patient resting comfortably in bed. She states that she did not take in much over the course of the day yesterday because she did not like the options. She denies having any nausea or vomiting. Exam Const General: cooperative, healthy appearing and comfortable Orientation: alert and oriented x3 Resp Effort & Inspection: normal respiratory effort, no audible wheezes and no cough GI Inspection: normal to inspection and incision (Midline, truman in place ecchymosis around the umbilical region ) Objective Last Vital Signs Temp 37.7 C H 08/08/22 00:01 Pulse 91 H 08/08/22 00:01 Resp 24 08/08/22 00:01 BP 161/90 H 08/07/22 15:30 Pulse Ox 98 08/08/22 00:01 Laboratory Results - last 24 hr 08/07/22 06:50 Sodium 136 Potassium 3.6 Chloride 100 Carbon Dioxide 27.3 Anion Gap 8.7 BUN 10 Creatinine 0.9 Est GFR (CKD-EPI 2020) 66.26 Glucose 135 H Calcium 8.9
[2022-08-08 07:47] VITALS: BP 155/74; PULSE 85; RESP 19; TEMP 36.8; O2SAT 96
[2022-08-08] MEDS: Mirabegron 25 MG TABCR PO (08:30)
[2022-08-08] MEDS: DULoxetine 30 MG CAP PO (08:30)
[2022-08-08] MEDS: Calcium 600mg/Vit D 200U TAB 1 TAB PO ×2 (08:30→20:33)
[2022-08-08] MEDS: Gabapentin 300 MG CAP PO ×2 (08:30→13:53)
[2022-08-08] MEDS: Omeprazole 20 MG CAPCR 40 MG PO (08:30)
[2022-08-08] MEDS: Cholecalciferol (Vitamin D3) 1,000 UNIT TAB 1000 UNITS PO ×2 (08:30→20:32)
[2022-08-08] MEDS: Insulin Aspart 300 UNITS/3 ML PEN SC (12:04)
[2022-08-08] MEDS: Ondansetron 4 MG/2 ML VIAL IVP (12:34)
[2022-08-08] MEDS: hydrOXYzine HCL 25 MG TAB PO (13:53)
--- NOTE | 2022-08-08 14:18 | PT.INTREAT ---
Date of service: 08/08/22 Time of Service: 09:26 PT Notes Visit Reasons: Small Bowel Obstruction Inpatient Physical Therapy Treatment Note [facility] Date: 08/08/2022 PRECAUTIONS: Activity as tolerated, fall SUBJECTIVE: Lorie states that she has already been for a walk this morning, and that she transferred to the bed to lay down by herself. She reports that she has caregivers that come to her house twice each day for around 2 hours at a time. OBJECTIVE: PAIN: Patient c/o abdominal pain post gait training BED MOBILITY/TRANSFERS: Supine-sit: I Sit-supine: I Sit-stand: SBA Stand-sit: SBA GAIT Assistive Device: FWW Weight bearing: Full Assist: SBA Distance: 200' Deviation: Gait unremarkable THEREX: Patient was instructed in a LE strengthening program, completed in a seated position, to include: ankle pumps, heel raises, hip flexion and hip abduction. TOILETING: Patient toileted with assist. ASSESSMENT: Patient tolerated session with complaint of abdominal pain at the end of the session. She tolerates a progression in gait distance with FWW support and SBA, demonstrating unremarkable gait. PLAN: Continue with global strengthening and general conditioning for improved mobility and activity tolerance. TREATMENT CODE/TIME: Session 1: 26 minutes; 32088, [id number] (09:26) Session 2: Patient refused due to c/o abdominal pain (reported to nursing)
[2022-08-08] MEDS: Acetaminophen 325 MG TAB 650 MG PO (14:49)
[2022-08-08 15:19] VITALS: BP 181/82; PULSE 93; RESP 23; TEMP 37.3; O2SAT 97
[2022-08-08] MEDS: Normal Saline Flush 10 ML SYR IVP ×2 (15:39→17:03)
[2022-08-08] MEDS: MORPHine 2 MG/ML SYR IVP (15:40)
[2022-08-08 15:55] LABS: HCT 32.7 % (36.0-46.0); HGB 10.7 g/dL (11.2-15.7); MCH 30.3 pg (27.0-33.0); MCHC 32.7 % (32.0-36.0); MCV 93 fL (80-95); MPV 8.8 fL (8.0-11.0); Platelet Count 301 10^3/uL (130-400); RBC 3.53 10^6/uL (3.93-5.22); RDW 14.2 % (11.7-14.6); RDW-SD 48.5 fL
--- NOTE | 2022-08-08 17:01 | CHAPLAIN ---
Jolanta was lying flat in bed. She told me about living in the [facility], where she has the best apartment. Jolanta is Buddhist. She said she has not been in touch with family, but she does have friends who know she is here. Jolanta told me she needed to close her eyes and rest so I told I would visit another time.
--- NOTE | 2022-08-08 17:10 | CMPROGNOTE_ITS ---
- If Service Date Differs Date of service: 08/08/22 Time of Service: 17:10 Care Management Progress Note S/O: Jolanta was sitting up in her chair, eating applesauce. She stated she was ready to go home and pleasant in interaction. She did report not wanting the diet advancement options from the kitchen, and shared appreciation that applesauce was available. Per MD anticipate Jolanta will remain at [facility] at least another night, no change to overall plan. CM continues to follow. A: 76 year old female admitted to [facility] 08/03/22 for SBO P: Jolanta will discharge home via [facility] W/C van with resumption of [facility] RN/PT/FIELD REP and community supports. She will follow up with community providers and discharge plan of care as prescribed. CM left for Amber Call: Gas Fitter Apprentice at [facility] to determine coordination of additional support upon discharge. [facility] RN may be available to support as well, per [facility] desizing pad operator. CM continues to follow.
--- NOTE | 2022-08-08 17:10 | PDOC.CMPRO ---
- If Service Date Differs Date of service: 08/08/22 Time of Service: 17:10 Care Management Progress Note S/O: Jolanta was sitting up in her chair, eating applesauce. She stated she was ready to go home and pleasant in interaction. She did report not wanting the diet advancement options from the kitchen, and shared appreciation that applesauce was available. Per MD anticipate Jolanta will remain at [facility] at least another night, no change to overall plan. CM continues to follow. A: 76 year old female admitted to [facility] 08/03/22 for SBO P: Jolanta will discharge home via [facility] W/C van with resumption of [facility] RN/PT/COMPLAINT INSPECTOR and community supports. She will follow up with community providers and discharge plan of care as prescribed. CM left for Amber Call: Assistant Boiler Operator at [facility] to determine coordination of additional support upon discharge. [facility] RN may be available to support as well, per [facility] cnc mill set up operator. CM continues to follow.
--- NOTE | 2022-08-08 19:08 | W.PM.PROGNOT ---
Date of Service Date of service: 08/08/22 Time of Service: 17:00 Assessment and Plan Assessment and plan (1) Small bowel obstruction: Status: Acute Assessment and plan: Unfortaubtely, the stomach is not draining antegrade. There is minimal small bowel dilation on the flat plate and the contrast in the rectum is reassuring. I think we can keep the NGT overnight and see how she feels in the morning. I'll repeat the CBC then as well. If labs and vitals are ok, I will probably give her a few days to see if this improves with some time. I suppose it could be swelling at the anastimosis. Subjective Subjective Interval history since last seen: Jolanta developed worsening abdominal pain this afternoon. She has loss of appetite. Stomach was massively distended on abdominal flat plate. I inserted a NGT and drained several hundred mL of bilious fluid Exam GI Inspection: distended Palpation: soft, no guarding and no hernias Other: Incision is clean and dry and there are no signs of infection. Objective Last Vital Signs Temp 99.1 F 08/08/22 15:19 Pulse 93 H 08/08/22 15:19 Resp 23 08/08/22 15:19 BP 181/82 H 08/08/22 15:19 Pulse Ox 97 08/08/22 15:19 Laboratory Results - last 24 hr 08/08/22 15:47 WBC 9.00 RBC 3.53 L Hgb 10.7 L Hct 32.7 L MCV 93 MCH 30.3 MCHC 32.7 RDW 14.2 Plt Count 301 MPV 8.8
[2022-08-08] MEDS: Amitriptyline 50 MG TAB 100 MG PO (20:32)
[2022-08-08] MEDS: Gabapentin 600 MG TAB PO (20:33)
[2022-08-08] MEDS: Heparin 5,000 UNITS/ML VIAL 5000 UNITS SC (21:57)
[2022-08-08 23:17] VITALS: BP 159/83; PULSE 82; RESP 20; TEMP 37.2; O2SAT 98
[2022-08-09] VITALS (21 sets, daily range): BP systolic 84–160; BP diastolic 34–97; PULSE 88–110; RESP 14–30; TEMP 35.9–37.7; O2SAT 94–100
[2022-08-09] MEDS: Heparin 5,000 UNITS/ML VIAL 5000 UNITS SC (06:17)
[2022-08-09] MEDS: ACETAMINOPHEN 1,000 MG/100 ML BTL 400 MG IVPB ×3 (06:17→23:37)
[2022-08-09 06:39] LABS: HCT 31.4 % (36.0-46.0); HGB 10.1 g/dL (11.2-15.7); MCH 30.1 pg (27.0-33.0); MCHC 32.2 % (32.0-36.0); MCV 94 fL (80-95); Platelet Count 339 10^3/uL (130-400); RBC 3.35 10^6/uL (3.93-5.22); RDW 14.4 % (11.7-14.6); RDW-SD 49.1 fL; WBC 7.69 10^3/uL (4.4-10.8)
[2022-08-09 06:59] LABS: Anion Gap 7.5 mmol/L (3-11); BUN 10 mg/dL (7-18); CO2 23.5 mmol/L (21.0-32.0); Calcium 8.5 mg/dL (8.5-10.1); Chloride 101 mmol/L (98-107); Estimated GFR 58.39 (mL/min/1.73m2); Glucose 133 mg/dL (74-106); Magnesium 1.2 mg/dL (1.8-2.4); PHOSPHORUS 3.2 mg/dL (2.6-4.7); Potassium 4.5 mmol/L (3.5-5.1); Sodium 132 mmol/L (136-145)
--- NOTE | 2022-08-09 07:19 | W.PM.PROGNOT ---
Date of Service Date of service: 08/09/22 Time of Service: 07:20 Assessment and Plan Assessment and plan (1) Small bowel obstruction: Status: Acute Assessment and plan: Postop day 6 s/p exploratory laparotomy and SBR. ABD flat plate last night showed distended stomach, NG tube was placed and 3L of bilious fluid was evacuated. Patient had another 2,100 cc output over night. Increased abdominal pain this morning with palpation (RLQ/Catalina-umbilical). She does not appear to have peritonitis. 05/21PL Ordered 2mg IVP of Morphine to address patient's c/o pain. NG tube in place on low intermittent suction NPO WBC count WNL at this time Continue with pulmonary toilet Continue to monitor the patient's NG output and pain control Since earlier this morning, the nasogastric effluent is darker. She seems more anxious. Her heart rate is increased a bit. CBC was reassuring, abdomen remains a little bit distended. Given the change in her vital signs, as well as the change in the character of the nasogastric tube, we will move her to the ICU. We will start Carafate in case this is a gastric ulcer, in addition to the Protonix that was started this morning. I will order a CAT scan given her recent operation, and the potential for complications related to her bowel resection. Subjective Subjective Interval history since last seen: Arrived with the patient in bed, she reports feeling she was not able to get any sleep last night. Patient states that she is continuing to have abdominal pain and points to right side/periumbilical area. She denies any nausea or vomiting at this time. However does express some discomfort with NG tube. Exam Const General: cooperative and in distress mild Orientation: alert and oriented x3 Resp Effort & Inspection: normal respiratory effort, no audible wheezes and no cough GI Inspection: distended and incision (midline, truman in place. Mild ecchymosis around the inferior portion) Palpation: firm and guarding Other: Moderate amount of discomfort with palpation to RLQ and catalina-umbilical region. No erythema or drainage noted from the incision site. Objective Last Vital Signs Temp 37 C 08/09/22 07:14 Pulse 88 08/09/22 07:14 Resp 24 08/09/22 07:14 BP 160/87 H 08/09/22 07:14 Pulse Ox 96 08/09/22 07:14 Laboratory Results - last 24 hr 08/08/22 08/09/22 08/09/22 15:47 06:10 06:10 WBC 9.00 7.69 RBC 3.53 L 3.35 L Hgb 10.7 L 10.1 L Hct 32.7 L 31.4 L MCV 93 94 MCH 30.3 30.1 MCHC 32.7 32.2 RDW 14.2 14.4 Plt Count 301 339 MPV 8.8 9.0 Sodium 132 L Potassium 4.5 Chloride 101 Carbon Dioxide 23.5 Anion Gap 7.5 BUN 10 Creatinine 1.0 Est GFR (CKD-EPI 2020) 58.39 Glucose 133 H Calcium 8.5 Phosphorus 3.2 Magnesium 1.2 L
[2022-08-09] MEDS: MORPHine 2 MG/ML SYR IVP ×2 (08:00→14:11)
[2022-08-09] MEDS: Pantoprazole 40 MG VIAL IVP (08:01)
[2022-08-09] MEDS: POTASSIUM CHLORIDE/D5-0.45NACL 1,000 ML 125 MEQ IV (08:01)
[2022-08-09] MEDS: Normal Saline Flush 10 ML SYR IVP ×2 (08:01→20:30)
--- NOTE | 2022-08-09 08:53 | NUR.NOTE ---
Nursing Note: Report given to JUAN Mattson in the ICU. Patient now in room 219. Patient transferred with oral contrast- JUAN Mattson is aware.
--- NOTE | 2022-08-09 09:26 | NUR.NOTE ---
At 0835 pt requested that I call [facility] to notify the senior case manager to let Kiana know that she was being moved to the intensive care unit. States that Kiana has been a residential acute care nurse and friend to her. Spoke with the senior case manager at [facility] and requested her to notify Kiana of pt's change to the ICU status. Nursing Note:
--- NOTE | 2022-08-09 09:32 | PDOC.CMPRO ---
- If Service Date Differs Date of service: 08/09/22 Time of Service: 09:32 Care Management Progress Note S/O: Jolanta was lying in bed in the ICU when CM met with her. She did not wish to engage in conversation stating that she was not feeling well. Jolanta was transferred to the ICU last night when she developed new abdominal pain and had an increase in abdominal distension. A NGT was inserted and she underwent radiographic studies which showed distension of the stomach. Following the insertion of the NGT, she had a large amount of output from the tube. Jolanta is afebrile but she is somewhat tachycardic with a heart rate in the low 100s. Her blood pressure is also lower than usual. She remains NPO. A: 76 year old female admitted to [facility] 08/03/22 for SBO P: Jolanta will discharge home via [facility] W/C van with resumption of [facility] RN/PT/MILITARY ADMINISTRATIVE TECHNICIAN and community supports. She will follow up with community providers and discharge plan of care as prescribed. SHAJI left [facility] Call: Gis Application Developer at [facility] to determine coordination of additional support upon discharge. [facility] RN may be available to support as well, per [facility] casting operator helper. CM continues to follow.
--- NOTE | 2022-08-09 09:39 | W.NUTRFU ---
Date of service: 08/09/22 Time of Service: 09:40 Nutrition Note NOTE: Jolanta has been NPO x 7 days s/p exlap for SBO with complications. Recommend initiating TPN to support immune function and lean body mass. Estimated Needs: 1410 kcal (BEE x 1.2), 84 g protein(ABW x 1.2), 2310 ml fluid (30 ml/kg actual). Recommend: Clinimix (4.25/10) 2000 ml, 20% lipids 250 ml/day. provides total of 1520 kcal, 84 g protein, 55 g fat with standard MVI/trace elements, SS insulin as ordered. Twice daily blood sugar monitoring, daily CBC, CMP, magnesium, Phos until repleted and stable. Time Spent in Nutritional Counseling and Treatment: 0
[2022-08-09] MEDS: Normal Saline - Diluent 50 ML VIAL IJ (10:54)
[2022-08-09] MEDS: Breeza Beverage 473 ML BTL 900 ML PO (10:55)
[2022-08-09] MEDS: Omnipaque 350 MG/ML 500 ML BTL-Imaging package 100 ML IJ (11:23)
[2022-08-09] MEDS: Omnipaque 350 MG/ML 50 ML BTL PO (11:23)
--- NOTE | 2022-08-09 11:25 | DI.CT_ITS ---
Exam(s) CT ABDOMEN PELVIS W EXAM: CT ABDOMEN PELVIS W CLINICAL HISTORY: gastric distention after bowel resection. TECHNIQUE: Imaging Protocol: Axial computed tomography images with coronal and sagittal reformatted images were created and reviewed CONTRAST MATERIAL: Intravenous: Omnipaque-350 100cc Oral: None COMPARISON: CT ABD PELVIS WITH CONTRAST from 01/19/[address] ABDOMEN PELVIS WO from 06/07/[address] ABDOMEN PELVIS WO from 12/06/[address] ABDOMEN PELVIS W from 08/02/2022 FINDINGS: VISUALIZED LUNG BASES: There is around 1.2 cm diameter nodule in the left lower lobe seen on the uppe rmost image of this study.. It appears to exhibit fat density. It appears to have slightly increase d in size when compared to the CT scan of May 2018, 4 years ago. Previously measured 1.0 cm. There is also a small pericardial effusion which is been previously present, unchanged ABDOMEN: There is sub deep subcutaneous air as well as air in the anterior abdominal wall musculature and ther e is also some free intraperitoneal air noted anteriorly. There is a small amount of ascites. There are numerous bowel anastomoses. There is an NG tube noted in place. Its distal tip is in the proximal stomach and should be further advanced. There is some edema versus evidence of prior fundoplication in the proximal stomach GE carolyn ction region. Stomach is distended. The duodenum distal to the pylorus is also significantly disten ded (as has previously been present.). Distal to the ligament of Treitz there is also prominence of left upper quadrant jejunal loops. More distal small bowel loops are not distended. Diameter of the colon is not enlarged. Colon is mostly collapsed. LIVER: There is a well-defined hypodensity in the medial right hepatic lobe adjacent to the inter lob ar fissure. This measures 9 x 7 millimeters, possibly significant at is more evident than on prior s tudies although the amount of hepatic steatosis throughout the liver appears less than on the prior s tudies and there is a possibly that this just represents remnant focal fatty change. I note that on the CT scan of January 2012 there is a small cyst at this level noted. This is perhaps a cyst which has increased in size. Nevertheless will require follow-up. GALLBLADDER/BILIARY: No obvious gallbladder pathology. CBD is not dilated. PANCREAS: Pancreatic head uncinate process calcifications are again noted. No calcifications or obvi ous mass in the neck and body of the pancreas. The tail of the pancreas is again noted to be deficie nt. SPLEEN: Spleen is not enlarged. No obvious intrasplenic lesions. Splenic and portal veins are paten t. ADRENALS: Bilateral adrenal nodules are again noted, unchanged from prior CT scans dating back to 201 2 and therefore benign-probable adenomas (as opposed to metastatic disease) KIDNEYS:Small cyst in the medial aspect of the left kidney again noted, unchanged from 2012. There a re no solid renal masses. No calculi nor hydronephrosis.. ABDOMINAL AORTA: Calcified but not enlarged. Retroaortic left renal vein again noted. LYMPH NODES:There is no retroperitoneal nor paraaortic adenopathy. ABDOMINAL WALL: Free subcutaneous air as well as air within the anterior musculature. GI: Dilated small bowel loops appear to have transition point in left side of the abdomen at a small bowel anastomosis site. There is some free fluid around this area. However, no formed abscess. PELVIS: GI: No evidence of appendicitis.There is extensive sigmoid diverticulosis. No obvious acute sigmoid diverticulitis. The colon is mostly collapsed. It contains oral contrast throughout most of its korin gth LYMPH NODES: There is no intrapelvic nor inguinal adenopathy. REPRODUCTIVE: Uterus is surgically absent. There are no abnormal adnexal masses. URINARY BLADDER: No calculi nor obvious masses evident. No gas-air within the bladder lumen. OSSEOUS: No significant osseous lesions. Sclerotic density at the S2 level of the sacrum noted. Unc hanged from 2012 and most probably a benign bone island. No lytic osseous lesions evident. IMPRESSION: 1. Compared to prior CT scans there is again noted a small-bowel obstruction which appears to have tr ansition point in left side of the abdomen at a small bowel anastomosis site. Small bowel loops as w ell as the colon distal to this are collapsed. Stomach is distended. NG tube is seen in the proxima l aspect of the stomach and should be further advanced into the mid-distal stomach. The duodenum is also again noted to be significantly dilated. 2. There is some free fluid in the mesentery noted. Also some free air (in addition to more prominen t air within the anterior abdominal wall musculature and subcutaneous anterior abdominal wall fat). 3. Stable bilateral adrenal masses, unchanged from 2012 and therefore benign. 4. Right hepatic lobe finding as described above which is probably a benign cyst which has progressed in size from 2012. Images reviewed at my PACS monitor with the surgeon on-call RADIATION DOSE DELIVERED: 1,049.6mGy.cm Total DLP DATA REPOSITORY: All CT scans at this facility are submitted to the National Radiology Data Registry (NRDR) Dose Index Registry (DIR) with the [employer] (ACR). RADIATION OPTIMIZATION: All CT scans at this facility use at least one of these dose optimization te chniques: automated exposure control; mA and/or kV adjustment per patient size (includes targeted exa ms where dose is matched to clinical indication); or iterative reconstruction.
--- NOTE | 2022-08-09 13:29 | W.PM.PROGNOT ---
Date of Service Date of service: 08/09/22 Time of Service: 13:29 Assessment and Plan Assessment and plan (1) Small bowel obstruction: Status: Acute Assessment and plan: Unfortunately, she still has a significant amount of gastric distention, duodenal distention after extensive lysis of adhesions and small bowel resection. I suppose there could be an element of edema after the anastomosis which is causing some obstructive pathophysiology. At this point, I think the best option is to keep her stomach and duodenum decompressed. I will repeat a CBC this afternoon to make sure there is no bleeding from the proximal small intestine. I have inserted central line for the initiation of TPN. I talked to Jolanta at length about the conduct of her previous operation, and the intraoperative findings. Sure she is disappointed that she still having obstructive symptoms despite her laparotomy. Unfortunately, she is not close with any family. Visit. She does have an extensive network of friends in the community, and I offered to discuss her prognosis with them. At this point, she prefers to wait and see how she feels. Subjective Subjective Interval history since last seen: He was doing to the intensive care unit. I was able to review her CT scan with the radiologist today. Her stomach and duodenum remain mildly distended. There is a small amount of fluid around the anastomosis, but otherwise is okay. There is contrast down into the colon and rectum. Objective Last Vital Signs Temp 96.6 F L 08/09/22 09:15 Pulse 102 H 08/09/22 12:00 Resp 14 08/09/22 12:00 BP 123/61 08/09/22 12:00 Pulse Ox 97 08/09/22 12:00 Laboratory Results - last 24 hr 08/08/22 08/09/22 08/09/22 15:47 06:10 06:10 WBC 9.00 7.69 RBC 3.53 L 3.35 L Hgb 10.7 L 10.1 L Hct 32.7 L 31.4 L MCV 93 94 MCH 30.3 30.1 MCHC 32.7 32.2 RDW 14.2 14.4 Plt Count 301 339 MPV 8.8 9.0 Sodium 132 L Potassium 4.5 Chloride 101 Carbon Dioxide 23.5 Anion Gap 7.5 BUN 10 Creatinine 1.0 Est GFR (CKD-EPI 2020) 58.39 Glucose 133 H Calcium 8.5 Phosphorus 3.2 Magnesium 1.2 L Patient ABO/Rh Antibody Screen 08/09/22 08:43 WBC RBC Hgb Hct MCV MCH MCHC RDW Plt Count MPV Sodium Potassium Chloride Carbon Dioxide Anion Gap BUN Creatinine Est GFR (CKD-EPI 2020) Glucose Calcium Phosphorus Magnesium Patient ABO/Rh O Positive Antibody Screen NEGATIVE Procedures Central Line Placement Right IJ: Time out performed: Yes Patient placed on monitor/pulse ox: Yes MD prep: mask, gown and gloves Central line prep: Chlorhexidine scrub Local anesthesia used: lidocaine 1% Amount of anesthesia used (ml): 3 Ultrasound used for placement: Yes Central line lumen inserted: triple Post procedure: sutured in place, good blood return, all ports aspirated, flushed, capped and sterile dressing applied Patient tolerated procedure: well and no complications Complications: none
--- NOTE | 2022-08-09 14:40 | DI.RAD_ITS ---
Exam(s) XR PORTABLE CHEST AP EXAM: XR PORTABLE CHEST AP CLINICAL HISTORY: central line placement. TECHNIQUE: 2D digital imaging was performed. COMPARISON: CR,XR XR PORTABLE CHEST AP from 08/03/[address] ABDOMEN PELVIS W from 08/09/2022 FINDINGS: Single AP portable view. There is a right jugular central line now evident. Distal tip is at the SVC-RA junction. There is a n NG tube in the stomach again noted. Heart size unchanged and the mediastinum is not widened. Please note that CT scan today revealed a p ericardial effusion small-moderate size. Lungs are clear. No infiltrates nor obvious pleural effusions. IMPRESSION: Right jugular central line distal tip at SVC-RA junction. NG tube in stomach. No new pulmonary findings. No pneumothorax. DATA REPOSITORY: RADIATION DOSE DELIVERED:
[2022-08-09] MEDS: Lactated Ringers 1,000 ML 125 ML IV ×2 (15:08→23:10)
[2022-08-09] MEDS: MAGNESIUM SULFATE 2 GM/50 ML BAG 25 GM (15:09)
[2022-08-09 18:04] LABS: HGB 9.2 g/dL (11.2-15.7)
[2022-08-09] MEDS: Insulin Aspart 300 UNITS/3 ML PEN SC ×2 (18:45→23:37)
--- NOTE | 2022-08-09 19:39 | NUR.NOTE ---
Nursing Note:Pt reports to nursing that her bother (on her HIPAA) is not to have any information. Explained that HIPAA needed to be redone. PT states Daughter Cristy may have updates on her care, other daughter may not have any information, brother and sister in law are not to be given any information. Pt wants Jess Pina as Paolo Care Agent - pt needs to redo her advanced directives and ad Kiana to list HIPAA redone raul
[2022-08-09] MEDS: Calcium 600mg/Vit D 200U TAB 1 TAB PO (20:30)
[2022-08-09] MEDS: Amitriptyline 50 MG TAB 100 MG PO (20:30)
[2022-08-09] MEDS: Cholecalciferol (Vitamin D3) 1,000 UNIT TAB 1000 UNITS PO (20:30)
[2022-08-09] MEDS: hydrOXYzine HCL 25 MG TAB PO (20:31)
[2022-08-09] MEDS: Gabapentin 600 MG TAB PO (21:17)
[2022-08-10] VITALS (23 sets, daily range): BP systolic 114–156; BP diastolic 42–69; PULSE 79–125; RESP 14–34; TEMP 36.5–37.6; O2SAT 93–99
[2022-08-10] MEDS: hydrOXYzine HCL 25 MG TAB PO ×2 (05:02→11:17)
[2022-08-10] MEDS: Lactated Ringers 1,000 ML 125 ML IV ×3 (06:45→21:59)
[2022-08-10] MEDS: ACETAMINOPHEN 1,000 MG/100 ML BTL 400 MG IVPB ×3 (06:45→17:53)
[2022-08-10 07:40] LABS: ALT 28 U/L (14-59); AST 18 U/L (15-37); Albumin 2.3 g/dL (3.4-5.0); Alkaline Phosphatase 120 U/L (46-116); Anion Gap 4.9 mmol/L (3-11); BUN 18 mg/dL (7-18); Bilirubin, Total 0.3 mg/dL (0.2-1.0); CO2 30.1 mmol/L (21.0-32.0); Calcium 8.7 mg/dL (8.5-10.1); Chloride 96 mmol/L (98-107); Estimated GFR 58.39 (mL/min/1.73m2); Glucose 176 mg/dL (74-106); Magnesium 1.9 mg/dL (1.8-2.4); PHOSPHORUS 4.4 mg/dL (2.6-4.7); Potassium 3.2 mmol/L (3.5-5.1); Sodium 131 mmol/L (136-145); Total Protein 5.8 g/dL (6.4-8.2)
--- NOTE | 2022-08-10 07:53 | CMPROGNOTE_ITS ---
- If Service Date Differs Date of service: 08/10/22 Time of Service: 07:53 Care Management Progress Note S/O: Jolanta remains in the ICU at this time, she continues to be followed by surgery with hospitalist consult, CM continues to follow. A: 76 year old female admitted to [facility] 08/03/22 for SBO P: Jolanta will discharge home via [facility] W/C van with resumption of [facility] RN/PT/ETHYLENE COMPRESSOR OPERATOR and community supports. She will follow up with community providers and discharge plan of care as prescribed. SHAJI left for Amebr Call: Electronic Musical Instrument Repairer at [facility] to determine coordination of additional support upon discharge. [facility] RN may be available to support as well, per [facility] frothing machine operator. CM continues to follow.
--- NOTE | 2022-08-10 07:53 | PDOC.CMPRO ---
- If Service Date Differs Date of service: 08/10/22 Time of Service: 07:53 Care Management Progress Note S/O: Jolanta remains in the ICU at this time, she continues to be followed by surgery with hospitalist consult, CM continues to follow. A: 76 year old female admitted to [facility] 08/03/22 for SBO P: Jolanta will discharge home via [facility] W/C van with resumption of [facility] RN/PT/LABOR DELIVERY RN and community supports. She will follow up with community providers and discharge plan of care as prescribed. SHAJI left for Amber Call: Cancer Registrar at [facility] to determine coordination of additional support upon discharge. [facility] RN may be available to support as well, per [facility] mechanical spreader operator. CM continues to follow.
--- NOTE | 2022-08-10 08:05 | W.PM.PROGNOT ---
Date of Service Date of service: 08/10/22 Time of Service: 08:05 Assessment and Plan Assessment and plan (1) Small bowel obstruction: Status: Acute Assessment and plan: Postop day 7 s/p exploratory laparotomy and SBR. NG tube in place on low intermittent suction NPO Central line was placed on 08/09 TPN has been started Pain well managed this morning per patient report Continue with pulmonary toilet Strongly encouraged sitting in the chair and ambulation as tolerated. Continue working with PT Continue with bowel rest, TPN and NG tube decompression. Will Continue to watch for bowel function return. She says her throat is a little less sore this morning. She denies any nausea. In fact, she has a little bit of an appetite today. She does have a headache, and it seems consistent with some baseline headaches that she gets from time to time. Her hemoglobin is decreased a little bit today, but the effluent from the nasogastric tube is more bilious. We talked again about the recent imaging findings, and her overall clinical picture. Again, I am trying to avoid another trip to the operating room since there is no major clinical indicators pushing for it at this point. Hopefully, if we can keep her stomach decompressed for a little bit, we can reassess progress through the anastomosis in the coming days. Subjective Subjective Interval history since last seen: Arrived with the patient resting in bed, she states that her throat is very sore this morning and she is requesting something to help with it. She states that her pain level is not too bad this morning. She denies any fevers, chills or night sweats. Exam Const General: cooperative, healthy appearing and comfortable Orientation: alert and oriented x3 Resp Effort & Inspection: normal respiratory effort, no audible wheezes and no cough GI Inspection: normal to inspection Palpation: soft, guarding and tender Other: NG tube in place. Canister was recently emptied. green billious looking fluid within the tubing was noted. Objective Last Vital Signs Temp 36.8 C 08/10/22 04:00 Pulse 93 H 08/10/22 02:01 Resp 15 08/10/22 04:00 BP 146/58 H 08/10/22 02:01 Pulse Ox 93 08/10/22 04:00 Laboratory Results - last 24 hr 08/09/22 08/09/22 08/10/22 08:43 17:56 07:00 Hgb 9.2 L Sodium 131 L Potassium 3.2 L D Chloride 96 L Carbon Dioxide 30.1 Anion Gap 4.9 BUN 18 Creatinine 1.0 Est GFR (CKD-EPI 2020) 58.39 Glucose 176 H Calcium 8.7 Phosphorus 4.4 Magnesium 1.9 Total Bilirubin 0.3 AST 18 ALT 28 Alkaline Phosphatase 120 H Total Protein 5.8 L Albumin 2.3 L Patient ABO/Rh O Positive Antibody Screen NEGATIVE
[2022-08-10] MEDS: Pantoprazole 40 MG VIAL IVP (08:19)
[2022-08-10] MEDS: Calcium 600mg/Vit D 200U TAB 1 TAB PO ×2 (08:20→21:02)
[2022-08-10] MEDS: Gabapentin 300 MG CAP PO ×2 (08:20→14:34)
[2022-08-10] MEDS: Cholecalciferol (Vitamin D3) 1,000 UNIT TAB 1000 UNITS PO (08:20)
[2022-08-10] MEDS: DULoxetine 30 MG CAP PO (08:20)
[2022-08-10 08:52] LABS: HCT 24.8 % (36.0-46.0); HGB 8.4 g/dL (11.2-15.7); MCH 31.3 pg (27.0-33.0); MCHC 33.9 % (32.0-36.0); MCV 93 fL (80-95); MPV 9.1 fL (8.0-11.0); Platelet Count 371 10^3/uL (130-400); RBC 2.68 10^6/uL (3.93-5.22); RDW 14.4 % (11.7-14.6); RDW-SD 48.9 fL; WBC 8.59 10^3/uL (4.4-10.8)
[2022-08-10] MEDS: Insulin Aspart 300 UNITS/3 ML PEN SC ×3 (08:52→17:54)
[2022-08-10 09:05] LABS: INR 0.9 (0.9-1.1)
--- NOTE | 2022-08-10 14:54 | PHACLINREV_ITS ---
Pharmacy Admission Review - Admission Clinical Review (Last Reviewed 08/03/22 @ 08:55 by Anjum Mehta MD) Small bowel obstruction (Acute) Penicillins Allergy (Intermediate, Unverified 08/02/22 18:24) Skin Rash aspirin Allergy (Unverified 08/02/22 18:25) miconazole Allergy (Unverified 08/02/22 18:24) Skin Rash povidone-iodine Allergy (Unverified 08/02/22 18:24) Skin Rash Sulfa (Sulfonamide Antibiotics) Allergy (Unverified 08/02/22 18:24) Skin Rash Resuscitation Status DNR/DNI Height 5 ft 4 in Weight 75.4 kg - Renal Dosing Renal Dosing: BUN 18 mg/dL (7-18) 08/10/22 07:00 Creatinine 1.0 mg/dL (0.55-1.02) 08/10/22 07:00 Medications needing adjustments: Reviewed (crcl ~47, meds ok) - Anticoagulation Anticoagulation: Hgb 8.4 g/dL (11.2-15.7) L 08/10/22 08:30 Hct 24.8 % (36.0-46.0) L 08/10/22 08:30 Plt Count 371 10^3/uL (130-400) 08/10/22 08:30 INR 0.9 (0.9-1.1) 08/10/22 08:30 Creatinine 1.0 mg/dL (0.55-1.02) 08/10/22 07:00 DVT Prophylaxis: Reviewed Medications: Heparin (held 08/09-08/10 (did receive 0600 dose 08/09), now resumed. next dose tonight @2200) Therapeutic Anticoagulation: N/A - Opiate Usage Evaluate Pain Scale/Pains Meds: Reviewed (morphine IV q4h prn, using sparingly) Scheduled Bowel Reg ordered if on Opiates?: No (prn) - Relevant Labs Sodium 131 mmol/L (136-145) L 08/10/22 07:00 Potassium 3.2 mmol/L (3.5-5.1) L D 08/10/22 07:00 Chloride 96 mmol/L (98-107) L 08/10/22 07:00 Phosphorus 4.4 mg/dL (2.6-4.7) 08/10/22 07:00 Magnesium 1.9 mg/dL (1.8-2.4) 08/10/22 07:00 Electrolytes, C-Reactive P, ESR: Reviewed (K+ = 3.2, from 4.5 yesterday. had been receiving IV fluids containing 40 mEq/L q8h, this was dc'd 08/09 @0830. Recommend adding an additional 40 mEq K+ to each TPN bag. Will re-evaluate tomorrow) - DM Control DM Control: Glucose 176 mg/dL (74-106) H 08/10/22 07:00 Finger Stick Blood Glucose 186 Finger Stick Blood Glucose 186 Finger Stick Blood Glucose 186 Finger Stick Blood Glucose 168 Finger Stick Blood Glucose 168 Finger Stick Blood Glucose 168 DM Control: Reviewed (sliding scale insulin aspart Q6h. on metformin ER BID at home) - Cardiac Review Cardiac Review: Troponin I < 50 ng/L (<or=60) 08/02/22 18:50 BP, HR, EF%: Reviewed - Qtc Review QTc: Reviewed (Qtc = 434 on 08/02) - IV to PO Switch IV Medications: Reviewed (pt is NPO d/t small bowel obstruction. on TPN 4.25% AA /D10W (central line) w/ 40 mEq KCl added to each bag (in addition to TPN electrolytes)) - Home Meds Home Med List reviewed: Reviewed Relevent Home Meds Not ordered & why?: multiple of home meds not ordered d/t NPO status, meds that can be crushed are ordered - Current meds Current Medication Order Review: Reviewed
--- NOTE | 2022-08-10 15:56 | PT.INIE ---
Date of service: 08/10/22 Time of Service: 15:36 PT Notes Visit Reasons: Small Bowel Obstruction Physical Therapy Inpatient Initial Evaluation Date: 08/10/2022 Referring Doctor:? MEGAN Healy PT Orders: PT CONSULT: Eval/Treat Precautions: Fall. Standard. Activity as tolerated. Patient Profile/Admitting Diagnosis:? Jolanta was sent to the ICU for close medical monitoring and is back under [facility] level of care as of today, 08/10/2022 per order by MEGAN Healy for continued functional mobility training. Jolanta is a 76-year-old female who presented to the ED on 08/02/2022 due to sudden onset abdominal distention, diffuse abdominal pain, and nausea. ? Patient is diagnosed with small bowel obstruction and is status post exploratory laparotomy, extensive adhesiolysis, segmental bowel resection, and enteroenterostomy on postoperative day 7.? PMHX: All Active Problems? Type 2 diabetes mellitus with complication, without long-term current use of insulin (Chronic 12/02/17) Hyperlipidemia (Chronic) Vitamin D deficiency (Chronic 08/11/12) Cervical spondylosis (Chronic 02/11/14) Multiple sclerosis (Chronic) secondary progressive HTN (hypertension) (Acute) Vitamin B12 deficiency (Chronic) SHERRELL (generalized anxiety disorder) (Chronic) Depression (Chronic) Chronic low back pain (Acute) Monocular diplopia (Chronic) Mild cognitive impairment (Acute) Walker as ambulation aid (Chronic) uses in her apartment Uses wheelchair (Chronic) when out of her apartment motorized Urinary incontinence, mixed (Acute) uses adult diapers Home fecal incontinence (Acute) Osteoarthritis of carpometacarpal joint of left thumb (Acute) Tobacco dependence due to cigarettes (Acute) Lung nodule, solitary (Acute) 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 Anemia in chronic kidney disease Diverticulosis Migraine headache without aura (01/31/15) Nephrolithiasis while on Topamax Osteoporosis (02/03/14) bone density scan 2013; treated with alendronate x 5 years, discontinued 02/2021 Palliative care patient Had one visit with Palliative care clinic - follow up pending SBO (small bowel obstruction) multiple; last May 2018 Tenosynovitis, de Quervain left sided Surgical History? H/O hemorrhoidectomy History of bowel resection History of cataract surgery History of repair of hiatal hernia paproscopic repair Hx of arthroscopy of right knee Hx of hysterectomy S/P trigger finger release Status post de Quervain's release surgery Status post total right knee replacement Social History/Home Situation: Patient lives alone in an aprtment building with a ramp and steps to enter.? She uses an elevator to reach her apartment.? She receives [facility] daily for assistance with house chores,? laundry and cooking. Equipment Owned/DME: FWW Subjective: With encouragement, patient agreed to being seen by PT for re-evaluation per request of Nurse Mattson and ordered by MEGAN Martinez on 08/10/2022. Objective: General Observation: Dressing over surgical incision.? Central line in place. Mental Status: Alert and oriented as to person, place, time, and purpose. Able to pay attention, focus, and respond appropriately. Pain: 5-6/10 over surgical incision Vital Signs: WNL as closley monitored by nursing staff ROM: Right Upper Extremity: ? Shoulder Flexion WFL. Shoulder abduction WFL. Elbow flexion WFL. Wrist flexion WFL. Functional opening and closing of hand WFL. Left Upper Extremity:? Shoulder Flexion WFL. Shoulder abduction WFL. Elbow flexion WFL. Wrist flexion WFL. Functional opening and closing of hand WFL. Right Lower Extremity: Hip flexion WFL. Hip abduction WFL. Knee flexion WFL. Ankle dorsiflexion WFL. Ankle plantarflexion WFL. Left Lower Extremity: Hip flexion WFL. Hip abduction WFL. Knee flexion WFL. Ankle dorsiflexion WFL. Ankle plantarflexion WFL. Strength: Right Upper Extremity: Shoulder flexors 4-/5. Shoulder abductors 4-/5. Elbow flexors 4-/5. Elbow extensors 4-/5. Information Security Consultant strong. Left Upper Extremity: Shoulder flexors 4-/5. Shoulder abductors 4-/5. Elbow flexors 4-/5. Elbow extensors 4-/5. Information Security Consultant strong. Right Lower Extremity: Hip flexors 3+/5. Hip abductors 3+/5. Knee flexors 4-/5. Knee extensors 3+/5. Ankle dorsiflexors 4-/5. Ankle plantarflexors 4-/5. Left Lower Extremity: Hip flexors 3+/5. Hip abductors 3+/5. Knee flexors 4-/5. Knee extensors 3+/5. Ankle dorsiflexors 4-/5. Ankle plantarflexors 4-/5.? S Bed Mobility/Transfers: Supine to sit stand by assist Sit to supine with stand by assist Sit to stand with stand by assist Stand to sit with stand by assist Bed to reclining chair stand by assist Reclining chair to bed stand by assist Gait: Instructed patient with level surface ambulation of 50 feet + 50 feet requiring stand by assist. Chely decreased. Step height decreased. Step length decreased.? No loss of balance.? No shortness of breath. Balance: Static Sitting: Normal Dynamic Sitting: Normal Static Standing: Fair Dynamic Standing: Fair Special Tests: Mobility Limitations Standardized Measure [facility] 6 clicks Basic Mobility Inpatient Short Form: Raw Score: 23? CMS Score: 11% deficit? ? ? Informed Consent/Education:? Patient was instructed in purpose of PT consult and plan of care. Agreeable to proceed with established PT POC to achieve personal goals. Assessment: Patient requires the use of a front-wheeled walker for all mobility ADL performance to maximize independence and reduce fall risk.? Patient presents with clinical signs and symptoms consistent with current/admitting diagnoses that have resulted to mobility limitations, gait instability, generalized weakness, and overall ADL decline as demonstrated by the following impairment level findings: 1.? Decreased strength to B UE/LE major muscle groups 2.? Impaired sitting/standing balance 3.? Impaired activity tolerance Impairments are contributing to the following functional limitations: 1.? Decline in bed mobility skills 2.? Decline in transfer skills 3.? Difficulty with ambulation without assistive device 4.? Increased completion time for mobility ADL performance 5.? Increased risk for falls 6.? Difficulty with managing steps alone safely Patient is assessed as a 69611 complexity based on the following: History: 76-year-old female with past medical history as indicated above Examination: Demonstrable impairment in strength, balance, and mobility level with underlying impairments and functional limitations as exhibited above as well as deficit score of 11% utilizing the [facility] Mobility Inpatient Short Form Presentation: Evolving Decision Makin moderate complexity Goals: Goals X1 week 1. Supine-Sit independent 2. Sit-Supine independent 3. Sit-Stand independent 4. Stand-Sit independent with FWW 5. Bed-Chair independent with FWW 6. Chair-Bed independent with FWW 7. Independent gait on level surface with use of FWW for at least 300 feet without report of pain nor dyspnea 8. Good static and dynamic standing balance/tolerance Plan of Care/Treatment Plan: 1-2x/day, 7 days/week x 1 week. Plan of care has been reviewed with the AERONAUTICAL ENGINEERING OFFICER providing the service under Physical Therapy direction. Initiate Physical Therapy intervention for pain management as needed, strengthening, bed mobility, transfers, gait, stairs, balance training, and use of assistive device. DISCHARGE RECOMMENDATIONS: [] ? Home with no services [] [X] ? Home with services.? Patient will benefit from home health PT services in order to progress mobility level using least restrictive assistive ambulatory device, assess home safety, identify additional equipment needs, and establish a functional maintenance program that will increase ability of patient to remain at home. [] ? Home with outpatient PT [] [] ? SNF for continued rehabilitation [] [] ? Senior Living Care [] [] ? SNF versus LTC based on ability to participate and progress [] [X]? Will need FWW for discharge to home to reduce fall risk TREATMENT CODE/TIME: 34084 x 23 minutes beginning at 15:56 PM. Thank you for the opportunity to participate in the care of this patient. Carmen Lawrence PT, DPT, CLT [facility] [place], [place]
[2022-08-10] MEDS: QUEtiapine 25 MG TAB PO ×2 (16:58→21:04)
[2022-08-10] MEDS: Simethicone 80 MG CHEW 40 MG PO ×2 (17:54→21:02)
[2022-08-10] MEDS: Gabapentin 600 MG TAB PO (21:04)
[2022-08-10] MEDS: Amitriptyline 50 MG TAB 100 MG PO (21:04)
[2022-08-10] MEDS: Heparin 5,000 UNITS/ML VIAL 5000 UNITS SC (21:16)
[2022-08-10] MEDS: Melatonin 3 MG TAB PO (21:34)
[2022-08-11] VITALS (19 sets, daily range): BP systolic 113–156; BP diastolic 45–71; PULSE 85–107; RESP 15–22; TEMP 35.7–38.7; O2SAT 92–97
[2022-08-11] MEDS: ACETAMINOPHEN 1,000 MG/100 ML BTL 400 MG IVPB ×4 (00:08→17:52)
[2022-08-11] MEDS: Insulin Aspart 300 UNITS/3 ML PEN SC ×4 (00:21→17:53)
[2022-08-11] MEDS: MORPHine 2 MG/ML SYR IVP (02:02)
[2022-08-11] MEDS: Lactated Ringers 1,000 ML 125 ML IV (05:11)
[2022-08-11] MEDS: Heparin 5,000 UNITS/ML VIAL 5000 UNITS SC ×3 (05:29→21:24)
[2022-08-11 05:42] LABS: HCT 24.2 % (36.0-46.0); HGB 7.9 g/dL (11.2-15.7); MCH 30.4 pg (27.0-33.0); MCHC 32.6 % (32.0-36.0); MCV 93 fL (80-95); MPV 9.1 fL (8.0-11.0); Platelet Count 372 10^3/uL (130-400); RDW 14.6 % (11.7-14.6); WBC 11.55 10^3/uL (4.4-10.8)
[2022-08-11 06:01] LABS: Anion Gap 5.5 mmol/L (3-11); BUN 17 mg/dL (7-18); CO2 30.5 mmol/L (21.0-32.0); Calcium 9.1 mg/dL (8.5-10.1); Chloride 98 mmol/L (98-107); Estimated GFR 58.39 (mL/min/1.73m2); Glucose 162 mg/dL (74-106); Magnesium 1.5 mg/dL (1.8-2.4); Potassium 3.6 mmol/L (3.5-5.1); Sodium 134 mmol/L (136-145)
[2022-08-11] MEDS: Calcium 600mg/Vit D 200U TAB 1 TAB PO ×2 (09:10→19:56)
[2022-08-11] MEDS: Cholecalciferol (Vitamin D3) 1,000 UNIT TAB 1000 UNITS PO ×2 (09:10→19:55)
[2022-08-11] MEDS: DULoxetine 30 MG CAP PO (09:11)
[2022-08-11] MEDS: Gabapentin 300 MG CAP PO ×2 (09:11→13:20)
[2022-08-11] MEDS: Pantoprazole 40 MG VIAL IVP (09:12)
[2022-08-11] MEDS: QUEtiapine 25 MG TAB PO ×2 (09:13→19:56)
[2022-08-11] MEDS: Simethicone 80 MG CHEW 40 MG PO ×2 (09:13→21:24)
--- NOTE | 2022-08-11 10:42 | PGE_ITS ---
Date of Service Date of service: 08/11/22 Time of Service: 10:42 Assessment and Plan Assessment and plan (1) Small bowel obstruction: Status: Acute Assessment and plan: I want to trend the volume of the nasogastric tube drainage over the course of today, now that it has been readjusted. Certainly, the nature of the effluent is a little more reassuring today. Her hemoglobin is down a bit, but her vital signs have all improved a little bit compared to the past 48 hours. In that regards, I do not see benefit to transfusion of packed red blood cells today. I will repeat the hemoglobin tomorrow, and I did advise her that she may benefit from a blood transfusion at that time. I will replete her magnesium today, and continue the total parenteral nutrition. Subjective Subjective Interval history since last seen: She had a much better night sleep overnight. She still complains of some abdominal discomfort, she thinks her appetite is may be increased a little bit. The nasogastric tube effluent volume was down quite a bit this morning, however, it appears the tube was dislodged to about 50 cm (and it was 70 cm previously). I advance the nasogastric tube, and more bilious effluent is currently draining. The color is much straw hat brusher than the previous days. Exam GI Inspection: normal to inspection, abdominal wall ecchymosis (From heparin shots) and incision (Clean and dry) Palpation: soft Percussion: tympanic to percussion Objective Last Vital Signs Temp 96.3 F L 08/11/22 07:50 Pulse 101 H 08/11/22 07:50 Resp 16 08/11/22 07:50 BP 128/55 L 08/11/22 07:50 Pulse Ox 93 08/11/22 07:50 Laboratory Results - last 24 hr 08/11/22 08/11/22 05:20 05:20 WBC 11.55 H RBC 2.60 L Hgb 7.9 L Hct 24.2 L MCV 93 MCH 30.4 MCHC 32.6 RDW 14.6 Plt Count 372 MPV 9.1 Sodium 134 L Potassium 3.6 Chloride 98 Carbon Dioxide 30.5 Anion Gap 5.5 BUN 17 Creatinine 1.0 Est GFR (CKD-EPI 2020) 58.39 Glucose 162 H Calcium 9.1 Phosphorus 4.0 Magnesium 1.5 L
--- NOTE | 2022-08-11 11:20 | NUR.NOTE ---
NG tube advanced by Dr. Mehta to 70cm. As a result, patient puts out 1300 ml of green bilious fluid.Nursing Note:
[2022-08-11] MEDS: MAGNESIUM SULFATE 4 GM/100 ML BAG IVPB (12:14)
--- NOTE | 2022-08-11 12:24 | PT.INTREAT ---
Date of service: 08/11/22 Time of Service: 11:50 PT Notes Visit Reasons: Small Bowel Obstruction Inpatient Physical Therapy Treatment Note [facility] Date: 08/11/2022 PRECAUTIONS: Fall. Standard. Activity as tolerated. SUBJECTIVE: Stated the nasogastic tube hurts her head. Needed to get up to go to commode but did not want to stand to step in place. Due to tubing and wires we did not try walking about room. OBJECTIVE: PAIN: Pain with going supine to sit and sit to supine. Only specific area of pain was noted in the nose region. BED MOBILITY/TRANSFERS Rolling L/R: Able to roll to right side with SBA Supine-sit: SBA and cueing Sit-supine: Assist with LE positioning LEs Sit-stand: SBA and cueing Stand-sit: SBA and cueing GAIT Assistive Device: No assistive device Weight bearing: Full Assist: CGA of 2, assist given with nurse Ramirez Distance: 8 steps to / from commode Able to urinate while on commode, did require assist with wiping and pulling undergarment up / down. THEREX: Willing to perform supine bicep curls, ankle pumps, assisted hip abd/adduction, assisted shoulder flexion from neutral to 60 degrees and shoulder abd /adduction for 5-10 reps each. ASSESSMENT: Tolerated fair. Difficulty with mobility due to lines and nasogastric tube. PLAN: Continue with current plan of care, with focus on improved functional mobility with ADLs. Proceed as patient is able to tolerate. TREATMENT CODE/TIME: Ther Activity ([id number]), 11:50 to 12:20 (30')
--- NOTE | 2022-08-11 12:31 | NUR.NOTE ---
Report given to Kiran Joiner/professor of journalism.Nursing Note:
[2022-08-11] MEDS: Normal Saline 500 ML 30 ML IV (13:19)
[2022-08-11] MEDS: Lactated Ringers 1,000 ML 80 ML IV (14:23)
[2022-08-11] MEDS: Normal Saline Flush 10 ML SYR IVP (19:56)
[2022-08-11] MEDS: Melatonin 3 MG TAB PO (21:24)
[2022-08-11] MEDS: Gabapentin 600 MG TAB PO (21:24)
[2022-08-11] MEDS: Amitriptyline 50 MG TAB 100 MG PO (21:24)
[2022-08-12] VITALS (8 sets, daily range): BP systolic 119–173; BP diastolic 40–84; PULSE 83–95; RESP 16–20; TEMP 35.9–37.1; O2SAT 93–97
[2022-08-12] MEDS: Insulin Aspart 300 UNITS/3 ML PEN SC ×5 (00:29→21:57)
[2022-08-12] MEDS: ACETAMINOPHEN 1,000 MG/100 ML BTL 400 MG IVPB ×5 (01:12→23:29)
[2022-08-12] MEDS: Normal Saline Flush 10 ML SYR IVP ×6 (01:22→23:27)
[2022-08-12] MEDS: Lactated Ringers 1,000 ML 80 ML IV ×2 (02:05→14:43)
[2022-08-12] MEDS: Heparin 5,000 UNITS/ML VIAL 5000 UNITS SC ×3 (05:48→22:00)
[2022-08-12 06:27] LABS: MCH 30.8 pg (27.0-33.0); MCHC 33.7 % (32.0-36.0); MCV 92 fL (80-95); MPV 9.2 fL (8.0-11.0); Platelet Count 409 10^3/uL (130-400); RBC 2.27 10^6/uL (3.93-5.22); RDW 14.9 % (11.7-14.6); RDW-SD 49.9 fL; WBC 17.22 10^3/uL (4.4-10.8)
[2022-08-12 06:37] LABS: HCT 20.8 % (36.0-46.0)
[2022-08-12 06:51] LABS: Anion Gap 2.3 mmol/L (3-11); BUN 18 mg/dL (7-18); CO2 31.7 mmol/L (21.0-32.0); CREATININE 0.9 mg/dL (0.55-1.02); Calcium 8.4 mg/dL (8.5-10.1); Chloride 98 mmol/L (98-107); Estimated GFR 66.26 (mL/min/1.73m2); Glucose 176 mg/dL (74-106); Magnesium 2.1 mg/dL (1.8-2.4); PHOSPHORUS 2.9 mg/dL (2.6-4.7); Potassium 3.8 mmol/L (3.5-5.1); Sodium 132 mmol/L (136-145)
[2022-08-12] MEDS: DULoxetine 30 MG CAP PO (08:37)
[2022-08-12] MEDS: QUEtiapine 25 MG TAB PO ×2 (08:37→21:59)
[2022-08-12] MEDS: Calcium 600mg/Vit D 200U TAB 1 TAB PO ×2 (08:37→21:59)
[2022-08-12] MEDS: Gabapentin 300 MG CAP PO ×2 (08:37→13:51)
[2022-08-12] MEDS: Cholecalciferol (Vitamin D3) 1,000 UNIT TAB 1000 UNITS PO ×2 (08:37→21:59)
[2022-08-12] MEDS: Pantoprazole 40 MG VIAL IVP (08:38)
[2022-08-12] MEDS: MORPHine 2 MG/ML SYR IVP ×2 (09:15→23:41)
[2022-08-12] MEDS: Simethicone 80 MG CHEW 40 MG PO ×4 (09:16→21:59)
--- NOTE | 2022-08-12 10:22 | W.PM.PROGNOT ---
Date of Service Date of service: 08/12/22 Time of Service: 10:22 Assessment and Plan Assessment and plan (1) Small bowel obstruction: Status: Acute Assessment and plan: Unfortunately, Jolanta's progress remains quite slow. Obviously, her leukocytosis and fever yesterday are concerning. I will obtain a urinalysis today to assess for urinary tract infection, as well as blood cultures and a chest x-ray to look for other sources of infection. Assuming those are negative, then her abdomen remains the most likely source, especially with the lack of progress over the past few days. Almost likely start some broad-spectrum antibiotics once those other studies are obtained. I do worry that we are not making sufficient progress with regards to her abdominal signs and symptoms. However, risks of another operation so close to the last make this an extremely complicated situation. I am also going to transfuse a unit of packed red blood cells today. Her hemoglobin is only slowly decreased, and there are no compelling sources of bleeding at this time. Therefore, we can see how that transfusion affects her physiology over the next 24 hours. Also start nystatin swish and swallow to help with thrush. Subjective Subjective Interval history since last seen: Jolanta had a fever yesterday afternoon, but she offers no other specific complaints through yesterday into today. The overall volume of the NG tube is a little improved over the past 24 hours compared to the days previous, even with manipulation of the nasogastric tube. She is complaining of a little more pain in her mouth and throat today, and she does have a little bit of white coating. Exam Resp Effort & Inspection: normal respiratory effort and other (Cough is a little bit weak) Auscultation: clear to auscultation bilaterally GI Inspection: distended Palpation: soft and tender Percussion: normal to percussion Auscultation: abnormal bowel sounds Other: The incision is clean and dry, there is no erythema or signs of hernia. Objective Last Vital Signs Temp 97.7 F 08/12/22 07:37 Pulse 84 08/12/22 07:37 Resp 16 08/12/22 07:37 BP 120/69 08/12/22 07:37 Pulse Ox 93 08/12/22 07:37 Laboratory Results - last 24 hr 08/09/22 08/12/22 08/12/22 08:43 05:40 05:40 WBC 17.22 H RBC 2.27 L Hgb 7.0 L* Hct 20.8 L* MCV 92 MCH 30.8 MCHC 33.7 RDW 14.9 H Plt Count 409 H MPV 9.2 Sodium 132 L Potassium 3.8 Chloride 98 Carbon Dioxide 31.7 Anion Gap 2.3 L BUN 18 Creatinine 0.9 Est GFR (CKD-EPI 2020) 66.26 Glucose 176 H Calcium 8.4 L Phosphorus 2.9 Magnesium 2.1 Patient ABO/Rh O Positive Antibody Screen NEGATIVE Crossmatch See Detail
--- NOTE | 2022-08-12 10:23 | DI.RAD_ITS ---
Exam(s) XR CHEST 2V PA LATERAL EXAM: XR CHEST 2V PA LATERAL nasogastric tube projects in the stomach. CLINICAL HISTORY: leukocytosis with cough, r/o pneumonia TECHNIQUE: 2D digital imaging was performed. COMPARISON: CR XR PORTABLE CHEST AP from 08/09/2022 FINDINGS: Nasogastric tube projects in the stomach. Right-sided internal jugular line distal SVC. HEART: Mildly enlarged, unchanged. Aorta: Not dilated. Calcification at arch. PULMONARY VASCULATURE: Normal. LUNGS: Mild atelectasis or scarring left lower lobe. No visible infiltrate or pulmonary edema. PLEURAL SPACE: No pleural effusion or pneumothorax. BONE:Unremarkable for age. IMPRESSION: No acute abnormality. DATA REPOSITORY: RADIATION DOSE DELIVERED:
--- NOTE | 2022-08-12 11:19 | DI.VRAD_ITS ---
PROCEDURE INFORMATION: Exam: XR Chest Exam date and time: 08/12/2022 10:14 AM Age: 76 years old Clinical indication: Other: Leukocytosis with cough, R/O pna TECHNIQUE: Imaging protocol: Radiologic exam of the chest. Views: 2 views. COMPARISON: CR XR PORTABLE CHEST AP 08/09/2022 2:19 PM FINDINGS: Tubes, catheters and devices: Nasogastric tube tip overlies the stomach. A right internal jugular central venous catheter is noted with it's tip overlying the SVC. Lungs: Subsegmental atelectasis left lower lobe. Subcentimeter, calcified pulmonary granulomas are present bilaterally. Pleural spaces: Unremarkable. No pleural effusion. No pneumothorax. Heart/Mediastinum: Unremarkable. No cardiomegaly. Bones/joints: Unremarkable. IMPRESSION: No acute findings. Dictated and Authenticated by: Elias Alex MD. Ordering:GABRIEL Valero MD
[2022-08-12] MEDS: Lidocaine 5% Patch 1 PATCH TP (12:15)
--- NOTE | 2022-08-12 12:53 | PT.INTREAT ---
Date of service: 08/12/22 Time of Service: 09:45 PT Notes Visit Reasons: Small Bowel Obstruction Inpatient Physical Therapy Treatment Note [facility] Date: 08/12/2022 PRECAUTIONS: Fall. Standard. Activity as tolerated. SUBJECTIVE: Nurse and Jolanta indicated that Jolanta had just got back to bed so not interested in walking. OBJECTIVE: PAIN: No complaints of pain offered during bed exercises. BED MOBILITY/TRANSFERS Up with nursing staff earlier so patient only agreeable to bed exercises today. THEREX: Performed ankle pumps, quad sets, glut sets, heel slides, hip abd/add, bicep curls and shoulder abd/adduction for 10 reps x 2 sets. ASSESSMENT: Tolerated ther exercises well with good effort displayed. PLAN: Continue with current POC, as able to tolerate. TREATMENT CODE/TIME: [id number], 9:45 to 10:00 (15')
[2022-08-12 13:50] LABS: Bilirubin Negative (Negative); Blood Negative (Negative); Clarity Clear (Clear); Glucose Negative (Negative); Ketones Negative (Negative); Leukocyte Esterase Negative (Negative); Nitrite Negative (Negative); Urobilinogen 0.2 EU/dL (Up TO 0.2); pH 8.5 (5-8)
[2022-08-12] MEDS: Nystatin 500000 UNITS/5 ML SUSP 5ML CUP PO ×2 (13:50→21:58)
[2022-08-12 14:00] LABS: Bacteria Many HPF (Negative); C & S Indicated? Yes; Casts Negative LPF (Negative); Crystals Negative HPF (Negative); Epithelial Cells Negative HPF (Negative); Mucus Negative (Negative); RBC 0-2 HPF (0-2)
[2022-08-12] MEDS: Amitriptyline 50 MG TAB 100 MG PO (21:58)
[2022-08-12] MEDS: Melatonin 3 MG TAB PO (21:59)
[2022-08-12] MEDS: Gabapentin 600 MG TAB PO (22:00)
[2022-08-12] MEDS: Lidocaine Patch Removal 1 EACH TD (23:21)
[2022-08-13] VITALS (10 sets, daily range): BP systolic 126–175; BP diastolic 53–78; PULSE 85–90; RESP 16–23; TEMP 36.7–37.8; O2SAT 96–100
[2022-08-13] MEDS: Lactated Ringers 1,000 ML 80 ML IV (02:50)
[2022-08-13] MEDS: Insulin Aspart 300 UNITS/3 ML PEN SC ×3 (05:41→19:22)
[2022-08-13] MEDS: Heparin 5,000 UNITS/ML VIAL 5000 UNITS SC (05:43)
[2022-08-13] MEDS: ACETAMINOPHEN 1,000 MG/100 ML BTL 400 MG IVPB ×3 (05:52→21:55)
[2022-08-13 06:24] LABS: Abs Immature Grans 0.12 10^3/uL (0.0-0.06); Absolute Lymphocyte Count 1.28 10^3/uL (1.2-3.4); Absolute Monocyte Count 0.71 10^3/uL (0.1-0.8); Basophils % 0.2; Eosinophils % 1.8; HCT 23.1 % (36.0-46.0); HGB 7.5 g/dL (11.2-15.7); Immature Grans % 0.7; Lymphocytes % 7.6; MCH 30.2 pg (27.0-33.0); MCHC 32.5 % (32.0-36.0); MCV 93 fL (80-95); MPV 9.1 fL (8.0-11.0); Monocytes % 4.2; Neutrophils % 85.5; Platelet Count 460 10^3/uL (130-400); RBC 2.48 10^6/uL (3.93-5.22); RDW 14.7 % (11.7-14.6); RDW-SD 50.9 fL; WBC 16.83 10^3/uL (4.4-10.8)
[2022-08-13 06:26] LABS: Absolute Basophil Count 0.03 10^3/uL (0.0-0.2); Absolute Neutrophil Count 14.39 10^3/uL (1.2-6.7)
[2022-08-13 06:35] LABS: INR 0.9 (0.9-1.1)
[2022-08-13 07:01] LABS: ALT 14 U/L (14-59); AST 11 U/L (15-37); Albumin 1.8 g/dL (3.4-5.0); Alkaline Phosphatase 110 U/L (46-116); Anion Gap 4.9 mmol/L (3-11); BUN 15 mg/dL (7-18); Bilirubin, Total 0.3 mg/dL (0.2-1.0); CO2 30.1 mmol/L (21.0-32.0); CREATININE 0.9 mg/dL (0.55-1.02); Calcium 8.6 mg/dL (8.5-10.1); Chloride 99 mmol/L (98-107); Estimated GFR 66.26 (mL/min/1.73m2); Glucose 168 mg/dL (74-106); Magnesium 1.9 mg/dL (1.8-2.4); Sodium 134 mmol/L (136-145)
[2022-08-13 07:03] LABS: PHOSPHORUS 2.8 mg/dL (2.6-4.7)
[2022-08-13] MEDS: Normal Saline Flush 10 ML SYR IVP ×8 (07:05→21:55)
[2022-08-13] MEDS: Pantoprazole 40 MG VIAL IVP ×2 (09:11→20:03)
[2022-08-13] MEDS: Nystatin 500000 UNITS/5 ML SUSP 5ML CUP PO ×3 (09:13→20:04)
[2022-08-13] MEDS: Lidocaine 5% Patch 1 PATCH TP (09:15)
[2022-08-13] MEDS: MORPHine 2 MG/ML SYR IVP ×2 (09:15→15:58)
[2022-08-13] MEDS: QUEtiapine 25 MG TAB PO ×2 (09:16→19:56)
[2022-08-13] MEDS: Cholecalciferol (Vitamin D3) 1,000 UNIT TAB 1000 UNITS PO (09:16)
[2022-08-13] MEDS: DULoxetine 30 MG CAP PO (09:16)
[2022-08-13] MEDS: Simethicone 80 MG CHEW 40 MG PO ×4 (09:16→22:31)
[2022-08-13] MEDS: Calcium 600mg/Vit D 200U TAB 1 TAB PO (09:16)
[2022-08-13] MEDS: Gabapentin 300 MG CAP PO ×2 (09:16→14:32)
--- NOTE | 2022-08-13 09:51 | PT.INNT ---
PT Notes Visit Reasons: Small Bowel Obstruction Pt refused PT today due to not feeling well.
--- NOTE | 2022-08-13 11:44 | PGE_ITS ---
Date of Service Date of service: 08/13/22 Time of Service: 11:44 Assessment and Plan Assessment and plan (1) Postoperative paralytic ileus: Status: Acute Assessment and plan: - Probably combination of MS and longstanding diabetes mellitus. UTI/electrolyte abnormalities/poor nutritional status/and poor movement/bedbound state are all contributing factors as well. -Physical therapy is consulted but patient is not able to do much. She cannot really get out of bed and walk at this point. She normally uses a wheelchair. She does live alone. There may be some discharge issues and she may need short- term rehab upon discharge -Flatplate x-ray in a.m. -Large volumes from NG tube still not passing flatus -reglan (tolerating) (2) E. coli UTI (urinary tract infection): Status: Acute Assessment and plan: - Patient is currently n.p.o. because of her adynamic ileus. -Will treat with ampicillin IV and pretreat her rash with Benadryl. (3) UGI bleed: Status: Acute Assessment and plan: - Hold heparin for the next 24 hours -Increase Protonix to every 12 hours -Patient is not really medically stable for an EGD. We will just continue to treat medically -Transfuse second unit of blood today (4) Type 2 diabetes mellitus with complication, without long-term current use of insulin: Status: Chronic Assessment and plan: - 6 hours fingersticks and coverage (5) Anemia in chronic kidney disease: Assessment and plan: Patient's hemoglobin yesterday was 7.0. She received 1 unit of packed RBCs and today her hemoglobin is 7.5. - We will check iron folate and B12. -She is going to receive another unit of blood today. -She is still having bloody drainage from NG tube (6) Multiple sclerosis: Status: Chronic (7) Hyperlipidemia: Status: Chronic Qualifiers: Hyperlipidemia type: pure hypercholesterolemia Qualified Code(s): E78.00 - Pure hypercholesterolemia, unspecified (8) At high risk for skin breakdown: Status: Acute Assessment and plan: - Reposition every 2 hours. -Encourage ambulation and activity -Patient is n.p.o. because of adynamic ileus. She is on TPN. Albumin is still quite low. She is anemic as well. No breakdown at this point. (9) HTN (hypertension): Status: Acute Qualifiers: Hypertension type: primary hypertension Qualified Code(s): I10 - Essential (primary) hypertension (10) Chronic low back pain: Status: Acute (11) Uses wheelchair: Status: Chronic (12) Mild cognitive impairment: Status: Acute (13) Tobacco dependence due to cigarettes: Status: Acute (14) Osteoarthritis of carpometacarpal joint of left thumb: Status: Acute Qualifiers: Osteoarthritis type: primary Qualified Code(s): M18.12 - Unilateral primary osteoarthritis of first carpometacarpal joint, left hand Subjective Subjective Interval history since last seen: Pt seen and examined. No headaches. No CP or SOB. no productive cough. no dysuria. no leg pain or swelling. She has no breakdown or decubitus ulcers. Physical therapy is consulted but she is able to do minimal. She does have a history of MS and has been diabetic since 2011. She received 1 unit of packed RBCs and her hemoglobin went from 7.0 yesterday to 7.5 today. However she still having coffee-ground material coming from her NG tube. She has belching and not passing gas. She has not had a stool. Exam Narrative Exam Narrative: PHYSICAL EXAM GENERAL APPEARANCE: Alert, healthy appearance, oriented, x 3,? in no acute distress HYDRATION: Well hydrated HEAD, EYES, EARS, NECK, THROAT: Head is normocephalic, pupils equal, round, reactive to light and accommodation, ocular movement intact, sclera clear and no jaundice. ? No sore throat.? No jaw pain. No thrush NECK: no lymphadenopathy.? Trachea midline.? Neck supple.? No JVD central line is clean dry and intact. LUNGS: normal respiration/normal chest excursion. ?Clear to auscultation bilaterally. ?No R/R/W ?HEART: Regular rate and rhythm. no murmurs EXTREMITY: No edema or cyanosis.? no leg pain, redness, swelling.? ABDOMEN: Incision is clean dry and intact and healing nicely. She does have bowel sounds today are normal. Objective Last Vital Signs Temp 36.7 C 08/13/22 08:15 Pulse 85 08/13/22 08:15 Resp 23 08/13/22 08:15 BP 138/68 08/13/22 08:15 Pulse Ox 96 08/13/22 08:15 Laboratory Results - last 24 hr 08/09/22 08/12/2208/13/23 08:43 13:33 05:45 WBC RBC Hgb Hct MCV MCH MCHC RDW Plt Count MPV Immature Gran % Neutrophils % Lymphocytes % Monocytes % Eosinophils % Basophils % Nucleated RBC % Absolute Neutrophils Absolute Lymphocytes Absolute Monocytes Absolute Eosinophils Absolute Basophils PT INR Sodium 134 L Potassium 4.0 Chloride 99 Carbon Dioxide 30.1 Anion Gap 4.9 BUN 15 Creatinine 0.9 Est GFR (CKD-EPI 2020) 66.26 Glucose 168 H Calcium 8.6 Phosphorus Magnesium 1.9 Total Bilirubin 0.3 AST 11 L ALT 14 Alkaline Phosphatase 110 Total Protein 6.0 L Albumin 1.8 L Urine Color Yellow Urine Clarity Clear Urine pH 8.5 H Ur Specific [place] 1.020 Urine Protein 30 H Urine Ketones Negative Urine Blood Negative Urine Nitrite Negative Urine Bilirubin Negative Urine Urobilinogen 0.2 Ur Leukocyte Esterase Negative Urine RBC 0-2 Urine WBC 10-20 H Ur Epithelial Cells Negative Urine Crystals Negative Urine Bacteria Many Urine Casts Negative Urine Mucus Negative Ur Culture Indicated? Yes Urine Glucose Negative Patient ABO/Rh O Positive Antibody Screen NEGATIVE Crossmatch See Detail 08/13/22 08/13/22 08/13/22 05:45 05:45 05:45 WBC 16.83 H RBC 2.48 L Hgb 7.5 L Hct 23.1 L MCV 93 MCH 30.2 MCHC 32.5 RDW 14.7 H Plt Count 460 H MPV 9.1 Immature Gran % 0.7 Neutrophils % 85.5 Lymphocytes % 7.6 Monocytes % 4.2 Eosinophils % 1.8 Basophils % 0.2 Nucleated RBC % 0.0 Absolute Neutrophils 14.39 H Absolute Lymphocytes 1.28 Absolute Monocytes 0.71 Absolute Eosinophils 0.30 Absolute Basophils 0.03 PT 9.0 L INR 0.9 Sodium Potassium Chloride Carbon Dioxide Anion Gap BUN Creatinine Est GFR (CKD-EPI 2020) Glucose Calcium Phosphorus 2.8 Magnesium Total Bilirubin AST ALT Alkaline Phosphatase Total Protein Albumin Urine Color Urine Clarity Urine pH Ur Specific [place] Urine Protein Urine Ketones Urine Blood Urine Nitrite Urine Bilirubin Urine Urobilinogen Ur Leukocyte Esterase Urine RBC Urine WBC Ur Epithelial Cells Urine Crystals Urine Bacteria Urine Casts Urine Mucus Ur Culture Indicated? Urine Glucose Patient ABO/Rh Antibody Screen Crossmatch 08/13/22 11:43 WBC RBC Hgb Hct MCV MCH MCHC RDW Plt Count MPV Immature Gran % Neutrophils % Lymphocytes % Monocytes % Eosinophils % Basophils % Nucleated RBC % Absolute Neutrophils Absolute Lymphocytes Absolute Monocytes Absolute Eosinophils Absolute Basophils PT INR Sodium Potassium Chloride Carbon Dioxide Anion Gap BUN Creatinine Est GFR (CKD-EPI 2020) Glucose Calcium Phosphorus Magnesium Total Bilirubin AST ALT Alkaline Phosphatase Total Protein Albumin Urine Color Urine Clarity Urine pH Ur Specific [place] Urine Protein Urine Ketones Urine Blood Urine Nitrite Urine Bilirubin Urine Urobilinogen Ur Leukocyte Esterase Urine RBC Urine WBC Ur Epithelial Cells Urine Crystals Urine Bacteria Urine Casts Urine Mucus Ur Culture Indicated? Urine Glucose Patient ABO/Rh Antibody Screen Crossmatch See Detail
[2022-08-13] MEDS: diphenhydrAMINE 50 MG/ML VIAL 25 MG IVP ×2 (13:32→21:54)
[2022-08-13] MEDS: Normal Saline 500 ML 100 ML IV (14:32)
[2022-08-13] MEDS: AMPICILLIN SODIUM 1 GM in Normal Saline 50 ML IVPB ×2 (14:32→22:27)
[2022-08-13 15:02] LABS: Lab Add On Test DONE
[2022-08-13 15:19] LABS: Iron 9 ug/dL (50-170); Total Iron Binding Capacity 160 ug/dL (250-450); Transferrin Sat 6 % (15-50)
[2022-08-13 15:32] LABS: C-Reactive Protein > 25.00 mg/dL (0.0-0.3)
[2022-08-13 15:52] LABS: Ferritin 500 ng/mL (8-252); Folate 11.8 ng/mL (8.6-20.0); Vitamin B12 813 pg/mL (193-986)
[2022-08-13] MEDS: LORazepam 0.5 MG TAB PO (20:33)
[2022-08-13] MEDS: Nicotine 21 MG/24 HR PATCH TD (20:35)
[2022-08-13] MEDS: Lidocaine Patch Removal 1 EACH TD (20:36)
[2022-08-13] MEDS: Melatonin 3 MG TAB PO (22:32)
[2022-08-13] MEDS: Gabapentin 600 MG TAB PO (22:32)
[2022-08-13] MEDS: Amitriptyline 50 MG TAB 100 MG PO (22:32)
[2022-08-14] MEDS: Insulin Aspart 300 UNITS/3 ML PEN SC ×3 (01:30→18:22)
[2022-08-14] MEDS: diphenhydrAMINE 50 MG/ML VIAL 25 MG IVP ×2 (05:44→13:46)
[2022-08-14] MEDS: ACETAMINOPHEN 1,000 MG/100 ML BTL 400 MG IVPB ×2 (05:44→13:47)
[2022-08-14] MEDS: Normal Saline Flush 10 ML SYR IVP ×3 (05:45→13:50)
[2022-08-14] MEDS: AMPICILLIN SODIUM 1 GM in Normal Saline 50 ML IVPB ×2 (06:20→14:29)
[2022-08-14 06:45] LABS: Abs Immature Grans 0.14 10^3/uL (0.0-0.06); Absolute Lymphocyte Count 1.21 10^3/uL (1.2-3.4); Absolute Monocyte Count 0.81 10^3/uL (0.1-0.8); Basophils % 0.4; Eosinophils % 2.2; HCT 27.6 % (36.0-46.0); HGB 8.9 g/dL (11.2-15.7); Lymphocytes % 8.9; MCH 29.7 pg (27.0-33.0); MCHC 32.2 % (32.0-36.0); MCV 92 fL (80-95); MPV 8.9 fL (8.0-11.0); Monocytes % 5.9; Neutrophils % 81.6; Platelet Count 554 10^3/uL (130-400); RDW 14.7 % (11.7-14.6); RDW-SD 49.8 fL; WBC 13.65 10^3/uL (4.4-10.8)
[2022-08-14 06:51] LABS: Absolute Basophil Count 0.05 10^3/uL (0.0-0.2); Absolute Neutrophil Count 11.14 10^3/uL (1.2-6.7)
[2022-08-14 07:12] LABS: ALT 17 U/L (14-59); AST 15 U/L (15-37); Albumin 2.1 g/dL (3.4-5.0); Alkaline Phosphatase 148 U/L (46-116); Anion Gap 5.8 mmol/L (3-11); BUN 14 mg/dL (7-18); Bilirubin, Total 0.4 mg/dL (0.2-1.0); CO2 27.2 mmol/L (21.0-32.0); CREATININE 0.9 mg/dL (0.55-1.02); Calcium 9.2 mg/dL (8.5-10.1); Chloride 100 mmol/L (98-107); Estimated GFR 66.26 (mL/min/1.73m2); Glucose 145 mg/dL (74-106); PHOSPHORUS 3.3 mg/dL (2.6-4.7); Potassium 4.3 mmol/L (3.5-5.1); Sodium 133 mmol/L (136-145); Total Protein 6.7 g/dL (6.4-8.2)
[2022-08-14 07:37] VITALS: BP 157/87; PULSE 85; RESP 18; TEMP 37; O2SAT 99
--- NOTE | 2022-08-14 08:33 | DI.RAD_ITS ---
Exam(s) XR ABDOMEN FLAT UPRIGHT EXAM: XR ABDOMEN FLAT UPRIGHT CLINICAL HISTORY: prolonged postOP ileus. TECHNIQUE: 2D digital imaging was performed. COMPARISON: CR XR ABDOMEN FLAT PLATE from 08/08/2022 FINDINGS: 3 views There is an NG tube in the stomach and the stomach is decompressed. Majority of the oral contrast is in the colon and terminal ileum. Colon does not appear distended. There is no free intraperitoneal air. IMPRESSION: As above. DATA REPOSITORY: RADIATION DOSE DELIVERED:
[2022-08-14] MEDS: Pantoprazole 40 MG VIAL IVP ×2 (08:52→20:17)
[2022-08-14] MEDS: Nystatin 500000 UNITS/5 ML SUSP 5ML CUP PO ×3 (08:52→20:17)
--- NOTE | 2022-08-14 08:52 | PDOC.CMPRO ---
- If Service Date Differs Date of service: 08/14/22 Time of Service: 08:52 Care Management Progress Note S/O: Jolanta is lying bed when CM met with her. She is awake, alert and able to engage in conversation. She tells this securities underwriter that she just wants to go home, and doesn't want to stay here much longer. At this time, she is NPO, has a NG Tube and receiving TPN with Nutrition following. She is being followed by surgery with hospitalist consult. Lorie would likely benefit from SNF for STR, prior to discharging home however refuses SNF referral's. Jolanta states that she's been to a rehab in the past and will never go to one again. Her plan is to go home with resumption of services [facility] and community services when she is feeling better. Per pt, she receives 5 hrs/day of home support through [facility] and that will have to be enough if they can't offer her more services. Jolanta is not medically ready for discharge, CM continues to follow. A: 76 year old female admitted to [facility] 08/03/22 for SBO P: Jolanta refuses SNF for STR. Anticipate, Jolanta will discharge home via [facility] W/C van with resumption of [facility] RN/PT/FLEET SERVICE CLERK and community supports. She will follow up with community providers and discharge plan of care as prescribed. CM left for Amber Call: Aircraft Engineer at [facility] to determine coordination of additional support upon discharge. [facility] RN may be available to support as well, per [facility] thread tool grinder set up operator. CM continues to follow.
[2022-08-14] MEDS: Gabapentin 300 MG CAP PO ×2 (08:54→13:47)
[2022-08-14] MEDS: DULoxetine 30 MG CAP PO (08:54)
[2022-08-14] MEDS: Lidocaine 5% Patch 1 PATCH TP (08:55)
[2022-08-14] MEDS: QUEtiapine 25 MG TAB PO ×2 (08:55→20:17)
[2022-08-14] MEDS: Simethicone 80 MG CHEW 40 MG PO ×3 (08:55→18:23)
[2022-08-14] MEDS: IRON SUCROSE COMPLEX 200 MG in Normal Saline 100 ML 400 MG IVPB (09:49)
--- NOTE | 2022-08-14 11:28 | W.NUTRFU ---
Date of service: 08/14/22 Time of Service: 11:28 Nutrition Note NOTE: TPN initiated 08/10/22. Electrolytes wnl. Receiving 25 kcal/kg, 1.4 g protein/kg per adjusted body weight. Continues NPO secondary to ileus. Will continue to follow Time Spent in Nutritional Counseling and Treatment: 0
[2022-08-14 12:00] VITALS: BP 162/75; PULSE 86; RESP 20; TEMP 36.8; O2SAT 98
[2022-08-14] MEDS: MORPHine 2 MG/ML SYR IVP ×2 (12:23→20:16)
--- NOTE | 2022-08-14 13:30 | PGE_ITS ---
Date of Service Date of service: 08/14/22 Time of Service: 13:30 Assessment and Plan Assessment and plan (1) At high risk for skin breakdown: Status: Acute (2) UGI bleed: Status: Acute Assessment and plan: - Continues to have some coffee-ground emesis. This may be related to tube trauma. Continue Protonix. Hold heparin until 08/15 Hemoglobin 8.9 after 2 units (3) E. coli UTI (urinary tract infection): Status: Acute Assessment and plan: Day 3 of 5 of ampicillin with Benadryl. She has tolerated this well (4) Postoperative paralytic ileus: Status: Acute Assessment and plan: She still has contrast in her colon. It is not clear when she last had contrast. We will try a large dose of MiraLAX today to see if we can break this free. Discussed with nursing (5) Type 2 diabetes mellitus with complication, without long-term current use of insulin: Status: Chronic (6) Hyperlipidemia: Status: Chronic Qualifiers: Hyperlipidemia type: pure hypercholesterolemia Qualified Code(s): E78.00 - Pure hypercholesterolemia, unspecified (7) Hypoalbuminemia due to protein-calorie malnutrition: Status: Acute Assessment and plan: Continue TPN Adjusted electrolytes Insulin coverage patient is not tolerating any p.o. at this time (8) Multiple sclerosis: Status: Chronic (9) HTN (hypertension): Status: Acute Qualifiers: Hypertension type: primary hypertension Qualified Code(s): I10 - Essential (primary) hypertension (10) Mild cognitive impairment: Status: Acute (11) Urinary incontinence, mixed: Status: Acute (12) Fecal incontinence: Status: Acute Subjective Subjective Interval history since last seen: Patient did not get up twice today and walk. She is not passing any gas. She is not having any stools. She did not tolerate the trial of clamping well and complained of bloating and nausea. She has had 1300 cc of coffee-ground type material out of her NG tube so far today. no headaches. No CP or SOB. no productive cough-she has a chronic dry cough that is unchanged.. no dysuria. no leg pain or swelling. No breakdown Exam HENMT Other: Edentulous no thrush no jaundice Resp Effort & Inspection: normal respiratory effort and able to speak in complete sentences Auscultation: clear to auscultation bilaterally Cardio Rate: regular rate Rhythm: regular rhythm GI Inspection: incision (Clean dry and intact) Palpation: soft and No ascites Other: I do not hear good bowel sounds today. She did have better bowel sounds yesterday. Extrem General: no clubbing, cyanosis or edema Objective Last Vital Signs Temp 36.8 C 08/14/22 12:00 Pulse 86 08/14/22 12:00 Resp 20 08/14/22 12:00 BP 162/75 H 08/14/22 12:00 Pulse Ox 98 08/14/22 12:00 Laboratory Results - last 24 hr 08/13/22 08/13/22 08/13/22 05:45 05:45 05:45 WBC RBC Hgb Hct MCV MCH MCHC RDW Plt Count MPV Immature Gran % Neutrophils % Lymphocytes % Monocytes % Eosinophils % Basophils % Nucleated RBC % Absolute Neutrophils Absolute Lymphocytes Absolute Monocytes Absolute Eosinophils Absolute Basophils Sodium Potassium Chloride Carbon Dioxide Anion Gap BUN Creatinine Est GFR (CKD-EPI 2020) Glucose Calcium Phosphorus Magnesium Iron 9 L TIBC 160 L Transferrin % Sat 6 L Ferritin 500 H Total Bilirubin AST ALT Alkaline Phosphatase C-Reactive Protein > 25.00 H Total Protein Albumin Vitamin B12 813 Folate 11.8 Add-On Test Request DONE Patient ABO/Rh Antibody Screen Crossmatch 08/13/22 08/14/22 08/14/22 14:28 06:00 06:00 WBC 13.65 H RBC 3.00 L Hgb 8.9 L Hct 27.6 L MCV 92 MCH 29.7 MCHC 32.2 RDW 14.7 H Plt Count 554 H MPV 8.9 Immature Gran % 1.0 Neutrophils % 81.6 Lymphocytes % 8.9 Monocytes % 5.9 Eosinophils % 2.2 Basophils % 0.4 Nucleated RBC % 0.0 Absolute Neutrophils 11.14 H Absolute Lymphocytes 1.21 Absolute Monocytes 0.81 H Absolute Eosinophils 0.30 Absolute Basophils 0.05 Sodium 133 L Potassium 4.3 Chloride 100 Carbon Dioxide 27.2 Anion Gap 5.8 BUN 14 Creatinine 0.9 Est GFR (CKD-EPI 2020) 66.26 Glucose 145 H Calcium 9.2 Phosphorus 3.3 Magnesium 2.0 Iron TIBC Transferrin % Sat Ferritin Total Bilirubin 0.4 AST 15 ALT 17 Alkaline Phosphatase 148 H C-Reactive Protein Total Protein 6.7 Albumin 2.1 L Vitamin B12 Folate Add-On Test Request Patient ABO/Rh O Positive Antibody Screen NEGATIVE Crossmatch See Detail Time Spent with Patient Time Spent with Patient: 35-49 minutes Time was spent: preparing to see the patient(eg.review tests), obtaining and/or reviewing separately otained hiistory, ordering medications,tests, procedures, referring, communicating with other health transitional care manager, indepentently interpreting results, counseling the patient and care coordination
[2022-08-14] MEDS: Polyethylene Glycol 3350 17 GM PACKET 51 GM PO (13:46)
--- NOTE | 2022-08-14 14:46 | PT.INTREAT ---
Date of service: 08/14/22 Time of Service: 10:24 PT Notes Visit Reasons: Small Bowel Obstruction Inpatient Physical Therapy Treatment Note [facility] Date: 08/14/2022 PRECAUTIONS: Fall, activity as tolerated, NG tube SUBJECTIVE: Jolanta requires encouragement to participate in PT. She reports that she is tired and just wants to go back to sleep. OBJECTIVE: PAIN: Patient c/o pain throughout session BED MOBILITY/TRANSFERS Rolling L/R: SBA with cueing for technique Supine-sit: SBA with cueing for technique Sit-supine: SBA with cueing for technique Sit-stand: S Stand-sit: S GAIT Assistive Device: FWW Weight bearing: Full Assist: S Distance: 200' + 100' in a.m.; 300' in p.m. Deviation: Unremarkable gait THEREX: Patient was instructed in a LE strengthening and stabilization program, completed in a supine position, to include: ankle pumps, quad sets, glute sets, hip abduction and heel slides. STAIRS: Patient reports she has elevator to get to her apartment, no need for stair training at this time. ASSESSMENT: Patient tolerated session with complaint of pain and fatigue. She was able to tolerate a progression in gait distance with FWW support and supervision. She is able to perform all transfers without physical assist, although requires significant cueing and encouragement to perform. Patient appears unmotivated and hesitant to participate in PT interventions. PLAN: Continue progressing transfers and gait distance and encouraging participation and continued progression toward independence. TREATMENT CODE/TIME: Session 1: 26 minutes; [id number], [id number] (10:24) Session 2: 24 minutes; [id number] x2 (15:14)
[2022-08-14 15:38] VITALS: BP 160/80; PULSE 91; RESP 19; TEMP 36.1; O2SAT 98
[2022-08-14 19:50] VITALS: BP 156/63; PULSE 89; RESP 18; TEMP 37; O2SAT 99
[2022-08-14] MEDS: Lidocaine Patch Removal 1 EACH TD (20:44)
[2022-08-14 23:20] VITALS: BP 154/71; PULSE 100; RESP 21; TEMP 37.3; O2SAT 97
[2022-08-15] MEDS: AMPICILLIN SODIUM 1 GM in Normal Saline 50 ML IVPB ×3 (01:52→17:54)
[2022-08-15] MEDS: ACETAMINOPHEN 1,000 MG/100 ML BTL 400 MG IVPB ×3 (01:52→22:14)
[2022-08-15] MEDS: Melatonin 3 MG TAB PO ×2 (02:00→22:15)
[2022-08-15] MEDS: Simethicone 80 MG CHEW 40 MG PO ×5 (02:19→22:16)
[2022-08-15] MEDS: Gabapentin 600 MG TAB PO ×2 (02:20→22:15)
[2022-08-15] MEDS: Amitriptyline 50 MG TAB 100 MG PO ×2 (02:20→22:15)
[2022-08-15 07:00] VITALS: BP 136/79; PULSE 89; RESP 19; TEMP 36.5; O2SAT 98
[2022-08-15] MEDS: Gabapentin 300 MG CAP PO ×2 (08:18→13:59)
[2022-08-15] MEDS: DULoxetine 30 MG CAP PO (08:18)
[2022-08-15] MEDS: QUEtiapine 25 MG TAB PO ×2 (08:18→19:55)
[2022-08-15] MEDS: Nystatin 500000 UNITS/5 ML SUSP 5ML CUP PO ×3 (08:19→19:54)
[2022-08-15] MEDS: Normal Saline Flush 10 ML SYR IVP ×3 (08:21→17:34)
[2022-08-15] MEDS: Lidocaine 5% Patch 1 PATCH TP (08:23)
--- NOTE | 2022-08-15 08:38 | CMPROGNOTE_ITS ---
- If Service Date Differs Date of service: 08/15/22 Time of Service: 08:38 Care Management Progress Note S/O: Jolanta continues to require close monitoring and treatment. She is being followed by Surgery, has a NGT, receiving TPN and being followed by nutrition. She is working with PT. Jolanta is lying bed when CM met with her. She is tired and able to engage in conversation. Lorie would likely benefit from SNF for STR, prior to discharging home and continues to refuse SNF referral's. Per Jolanta, she been to a rehab in the past and will never go back. Her plan is to go home with resumption of services [facility] and community services when she is feeling better. Per pt, she receives 5 hrs/day of home support through [facility] and that will have to be enough if they can't offer her more services. Janeth Bailon from [facility] verified that Jolanta receives 5 hrs/day of home support through [facility], and also indicated that she is eligible for more services. [facility] doesn't have staffing to support more hours therefor Janeth will reach out to [facility] and see if they have any availability. Janeth will let us know. CM to follow. A: 76 year old female admitted to [facility] 08/03/22 for SBO P: Jolanta refuses SNF for STR. Anticipate, Jolanta will discharge home via [facility] W[facility]C van with resumption of [facility] RN/PT/HEAD WELL PULLER and increased community supports, if available. Janeth Walker from [facility] is contacting [facility]. In addition, SHAJI left [facility] Call: Architectural Engineering Teacher at [facility] to determine coordination of additional support upon discharge. YANET RN may be available to support as well, per [facility] grinding machine operator. CM continues to follow.
--- NOTE | 2022-08-15 08:38 | PDOC.CMPRO ---
- If Service Date Differs Date of service: 08/15/22 Time of Service: 08:38 Care Management Progress Note S/O: Jolanta continues to require close monitoring and treatment. She is being followed by Surgery, has a NGT, receiving TPN and being followed by nutrition. She is working with PT. Jolanta is lying bed when CM met with her. She is tired and able to engage in conversation. Lorie would likely benefit from SNF for STR, prior to discharging home and continues to refuse SNF referral's. Per Jolanta, she been to a rehab in the past and will never go back. Her plan is to go home with resumption of services [facility] and community services when she is feeling better. Per pt, she receives 5 hrs/day of home support through [facility] and that will have to be enough if they can't offer her more services. Janeth Bailon from [facility] verified that Jolanta receives 5 hrs/day of home support through [facility], and also indicated that she is eligible for more services. [facility] doesn't have staffing to support more hours therefor Janeth will reach out to [facility] and see if they have any availability. Janeth will let us know. CM to follow. A: 76 year old female admitted to [facility] 08/03/22 for SBO P: Jolanta refuses SNF for STR. Anticipate, Jolanta will discharge home via [facility] W/C van with resumption of [facility] RN/PT/HEALTH TECHNICIAN HEARING and increased community supports, if available. Janeth Walker from [facility] is contacting [facility]. In addition, SHAJI left [facility] Call: Food Service Counter Clerk at [facility] to determine coordination of additional support upon discharge. YANET RN may be available to support as well, per [facility] buncher operator. CM continues to follow.
[2022-08-15 08:50] LABS: Absolute Eosinophil Count 0.28 10^3/uL (0.0-0.7); Absolute Lymphocyte Count 1.86 10^3/uL (1.2-3.4); Absolute Monocyte Count 0.89 10^3/uL (0.1-0.8); Absolute Neutrophil Count 8.65 10^3/uL (1.2-6.7); Basophils % 0.7; Eosinophils % 2.3; HCT 29.6 % (36.0-46.0); HGB 10.3 g/dL (11.2-15.7); Immature Grans % 2.5; Lymphocytes % 15.4; MCH 32.2 pg (27.0-33.0); MCHC 34.8 % (32.0-36.0); MCV 93 fL (80-95); MPV 8.8 fL (8.0-11.0); Monocytes % 7.4; Neutrophils % 71.7; RDW 14.6 % (11.7-14.6); RDW-SD 49.4 fL; WBC 12.07 10^3/uL (4.4-10.8)
--- NOTE | 2022-08-15 08:54 | DI.RAD_ITS ---
Exam(s) XR ABDOMEN FLAT UPRIGHT EXAM: 2D digital imaging was performed. CLINICAL HISTORY: sbo/retained contrast. COMPARISON: CR XR ABDOMEN FLAT UPRIGHT from 08/14/2022 TECHNIQUE: Supine and upright views of the abdomen were performed. FINDINGS: Nasogastric tube is unchanged in position in the stomach. Midline skin truman again noted. Lung ba ses are clear. No free air. Contrast is again noted in the colon. Not significantly changed. No s ignificant colonic or small bowel dilatation. Suture material left mid abdomen. IMPRESSION: Administered oral contrast remains present in the colon, unchanged from previous day's exam. No sign ificant colonic or small bowel dilatation. DATA REPOSITORY: RADIATION DOSE DELIVERED:
--- NOTE | 2022-08-15 09:01 | W.PM.PROGNOT ---
Date of Service Date of service: 08/15/22 Time of Service: 09:01 Assessment and Plan Assessment and plan (1) At high risk for skin breakdown: Status: Acute (2) UGI bleed: Status: Acute Assessment and plan: Continue Protonix Awaiting morning lab results (3) E. coli UTI (urinary tract infection): Status: Acute Assessment and plan: Day 4 of 5 of ampicillin with Benadryl. She has tolerated this well (4) Postoperative paralytic ileus: Status: Acute Assessment and plan: Last BM noted to be on 08/10 Distended abdomen that is tender to palpation NG tube in place with 400 cc of light brown fluid. Total output documented yesterday 3,400cc Awaiting Abdominal Xray results I saw and examined Jolanta around 430 today and I agree with Priyanka Silva's note. Hgb and WBC are better today. Abdominal flat plate is not much different than previous. Minimal bowel dilation despite ongoing high NGT output. Abdominal exam is not distended. I think we can try to transition the NGT to gravity drainage tomorrow in an effort to support mobilization and promote some antegrade movement. Again, I talked to Jolanta at length about the challenge of this situation and significant risk associated with a return to the OR in this imte relative to her last surgery. If we cant make some progress on GI motility, however, I might be forced to re-explore. (5) Type 2 diabetes mellitus with complication, without long-term current use of insulin: Status: Chronic (6) Hyperlipidemia: Status: Chronic Qualifiers: Hyperlipidemia type: pure hypercholesterolemia Qualified Code(s): E78.00 - Pure hypercholesterolemia, unspecified (7) Hypoalbuminemia due to protein-calorie malnutrition: Status: Acute Assessment and plan: Continue TPN Adjusted electrolytes Insulin coverage patient is not tolerating any p.o. at this time (8) Multiple sclerosis: Status: Chronic (9) HTN (hypertension): Status: Acute Qualifiers: Hypertension type: primary hypertension Qualified Code(s): I10 - Essential (primary) hypertension (10) Mild cognitive impairment: Status: Acute (11) Urinary incontinence, mixed: Status: Acute (12) Fecal incontinence: Status: Acute Subjective Subjective Interval history since last seen: Patient is lying down in bed sleeping. Patient denies passing any flatus or having any bowel movements. She denies having any nausea or vomiting. Exam Const General: cooperative and ill appearing Orientation: alert and awake Resp Effort & Inspection: normal respiratory effort, no audible wheezes and no cough GI Inspection: distended Palpation: soft, guarding and tender Percussion: tympanic to percussion Objective Last Vital Signs Temp 36.5 C 08/15/22 07:00 Pulse 89 08/15/22 07:00 Resp 19 08/15/22 07:00 BP 136/79 08/15/22 07:00 Pulse Ox 98 08/15/22 07:00 Time Spent with Patient Time Spent with Patient: <25 minutes Time was spent: preparing to see the patient(eg.review tests) and other
[2022-08-15 09:07] LABS: Absolute Basophil Count 0.08 10^3/uL (0.0-0.2)
[2022-08-15 09:19] LABS: ALT 20 U/L (14-59); AST 18 U/L (15-37); Albumin 2.3 g/dL (3.4-5.0); Alkaline Phosphatase 189 U/L (46-116); Anion Gap 4.7 mmol/L (3-11); BUN 18 mg/dL (7-18); Bilirubin, Total 0.3 mg/dL (0.2-1.0); CO2 29.3 mmol/L (21.0-32.0); CREATININE 0.9 mg/dL (0.55-1.02); Calcium 9.3 mg/dL (8.5-10.1); Chloride 100 mmol/L (98-107); Estimated GFR 66.26 (mL/min/1.73m2); Glucose 168 mg/dL (74-106); Magnesium 2.1 mg/dL (1.8-2.4); PHOSPHORUS 3.2 mg/dL (2.6-4.7); Potassium 4.1 mmol/L (3.5-5.1); Sodium 134 mmol/L (136-145)
[2022-08-15 09:22] LABS: Platelet Count 705 10^3/uL (130-400)
[2022-08-15] MEDS: Pantoprazole 40 MG VIAL IVP ×2 (09:29→19:54)
--- NOTE | 2022-08-15 10:25 | PT.INTREAT ---
Date of service: 08/15/22 Time of Service: 09:48 PT Notes Visit Reasons: Small Bowel Obstruction Inpatient Physical Therapy Treatment Note [facility] Date: 08/15/2022 PRECAUTIONS: Fall, activity as tolerated, NG tube SUBJECTIVE: Jolanta is agreeable to participating in PT, although continues to require encouragement to progress. She reports that she thinks she slept ok, and is feeling a little better today. OBJECTIVE: Patient was resistant to sitting up in the chair post gait training, although eventually agreed. PAIN: Patient c/o pain at central line site BED MOBILITY/TRANSFERS Rolling L/R: I Supine-sit: I Sit-stand: S Stand-sit: S GAIT Assistive Device: FWW Weight bearing: Full Assist: S Distance: 200' x2 Deviation: Unremarkable gait, patient c/o B LE fatigue THEREX: Patient was instructed in a LE strengthening program, completed in a seated position, to include: ankle pumps, hip abduction, hip flexion and LAQ. STAIRS: Patient reports she has elevator to get to her apartment, no need for stair training at this time. ASSESSMENT: Patient tolerated session with complaint of B LE fatigue with gait training. She continues to demonstrate unremarkable gait with FWW support and supervision. She is able to perform all transfers without physical assist, and requires decreased encouragement to perform compared to yesterday. Patient appears unmotivated to participate in PT interventions. PLAN: Continue progressing transfers and gait distance and encouraging participation and continued progression toward independence. TREATMENT CODE/TIME: 28 minutes; 48251, [id number] (09:48)
[2022-08-15] MEDS: Insulin Aspart 300 UNITS/3 ML PEN SC ×2 (12:18→18:09)
[2022-08-15] MEDS: Heparin 5,000 UNITS/ML VIAL 5000 UNITS SC ×2 (13:59→22:31)
--- NOTE | 2022-08-15 13:59 | PT.INTREAT ---
Date of service: 08/15/22 Time of Service: 13:59 PT Notes Visit Reasons: Small Bowel Obstruction Inpatient Physical Therapy Treatment Note [facility] Date: 08/15/2022 PRECAUTIONS: NGT in place. Standard. Activity as tolerated. SUBJECTIVE: Agreed to continue the walk patient started with Nurse Joiner. OBJECTIVE:? PAIN: Reports right frontal headache and R facial pain at 8/10 after ambulation activity. Nurse Marisel made aware. ? BED MOBILITY/TRANSFERS? Supine-sit: Independent? Sit-stand: Independent? Stand-sit: Independent? GAIT? Assistive Device: FWW ? Weight bearing: Full Assist: Supervision and IV pole management ? Distance: 400 feet? Deviation: Needs cueing to not lag behind walker when fatigued. No path deviation. Minimal shortness of breath. ? THEREX: Refused thera ex due to R sided frontal headache and R facial pain ? ASSESSMENT: Requires extensive encouragement to participate in PT. PLAN: Progress strength, balance, and mobility level as tolerated in anticipation of discharge to home whenever cleared medically by hospitalist. DISCHARGE RECOMMENDATIONS: PT TREATMENT CODE/TIME: ? 99484 x 15 minutes beginning at 13:59 PM.
[2022-08-15 15:13] VITALS: O2SAT 81
[2022-08-15 15:21] VITALS: BP 126/64; PULSE 88; RESP 19; TEMP 36.3; O2SAT 94
[2022-08-15] MEDS: Methylnaltrexone 12 MG/0.6 ML VIAL 8 MG SC (16:46)
[2022-08-15] MEDS: diphenhydrAMINE 50 MG/ML VIAL 25 MG IVP (17:34)
[2022-08-15] MEDS: MORPHine 2 MG/ML SYR IVP (19:55)
[2022-08-15] MEDS: Lidocaine Patch Removal 1 EACH TD (20:20)
[2022-08-15 22:37] VITALS: BP 133/73; PULSE 90; RESP 16; O2SAT 95
[2022-08-15 23:34] VITALS: BP 133/66; PULSE 87; RESP 18; TEMP 36.5; O2SAT 96
[2022-08-16] MEDS: Insulin Aspart 300 UNITS/3 ML PEN SC ×4 (00:16→18:16)
[2022-08-16] MEDS: AMPICILLIN SODIUM 1 GM in Normal Saline 50 ML IVPB ×3 (02:53→17:36)
[2022-08-16] MEDS: MORPHine 2 MG/ML SYR IVP ×2 (03:59→15:20)
[2022-08-16] MEDS: ACETAMINOPHEN 1,000 MG/100 ML BTL 400 MG IVPB ×3 (06:22→22:22)
[2022-08-16] MEDS: Heparin 5,000 UNITS/ML VIAL 5000 UNITS SC ×3 (06:25→22:41)
[2022-08-16 06:56] LABS: Absolute Eosinophil Count 0.42 10^3/uL (0.0-0.7); Absolute Monocyte Count 1.05 10^3/uL (0.1-0.8); Basophils % 0.8; Eosinophils % 3.4; HGB 9.8 g/dL (11.2-15.7); Immature Grans % 3.2; Lymphocytes % 19.4; MCH 30.3 pg (27.0-33.0); MCHC 32.7 % (32.0-36.0); MCV 93 fL (80-95); MPV 8.8 fL (8.0-11.0); Monocytes % 8.5; Neutrophils % 64.7; Platelet Count 726 10^3/uL (130-400); RBC 3.23 10^6/uL (3.93-5.22); RDW 14.4 % (11.7-14.6); RDW-SD 49.2 fL
[2022-08-16 06:57] LABS: Absolute Lymphocyte Count 2.41 10^3/uL (1.2-3.4); Absolute Neutrophil Count 8.02 10^3/uL (1.2-6.7)
--- NOTE | 2022-08-16 07:06 | W.PM.PROGNOT ---
Date of Service Date of service: 08/16/22 Time of Service: 07:06 Assessment and Plan Assessment and plan (1) At high risk for skin breakdown: Status: Acute (2) UGI bleed: Status: Acute Assessment and plan: Continue Protonix Awaiting morning lab results (3) E. coli UTI (urinary tract infection): Status: Acute Assessment and plan: Day 5 of 5 of ampicillin with Benadryl. She has tolerated this well (4) Postoperative paralytic ileus: Status: Acute Assessment and plan: Last BM noted to be on 08/10 Hypoactive Bowel sounds Abdomen is tender to palpation NG tube in place total output over the course of yesterday was 1875cc's Encouraged sitting in the chair and ambulation I saw and examined Jolanta on August 16 around 11:30 AM. She was up and ambulating in the hallway this morning. She says that she feels a little better today. She denies any nausea at present. I removed her nasogastric tube from suction over to gravity drainage this morning. There is just a minimal amount of serous fluid in the back, with no signs of any gas. Her abdomen soft at this point. When I tried to leave the nasogastric tube off suction through this evening, and go back to suction overnight for safety. We will see how she does again tomorrow. (5) Type 2 diabetes mellitus with complication, without long-term current use of insulin: Status: Chronic (6) Hyperlipidemia: Status: Chronic Qualifiers: Hyperlipidemia type: pure hypercholesterolemia Qualified Code(s): E78.00 - Pure hypercholesterolemia, unspecified (7) Hypoalbuminemia due to protein-calorie malnutrition: Status: Acute Assessment and plan: Continue TPN Adjusted electrolytes Insulin coverage patient is not tolerating any p.o. at this time (8) Multiple sclerosis: Status: Chronic (9) HTN (hypertension): Status: Acute Qualifiers: Hypertension type: primary hypertension Qualified Code(s): I10 - Essential (primary) hypertension (10) Mild cognitive impairment: Status: Acute (11) Urinary incontinence, mixed: Status: Acute (12) Fecal incontinence: Status: Acute Subjective Subjective Interval history since last seen: This morning Jolanta expressed that she is tired. She subjectively feels she is slightly better than yesterday. Denies any nausea, vomiting, flatus or bowel movements. Exam Const General: cooperative and comfortable Orientation: alert and awake Resp Effort & Inspection: normal respiratory effort, no audible wheezes and no cough GI Inspection: normal to inspection Palpation: soft, no guarding and tender Auscultation: hypoactive bowel sounds Objective Last Vital Signs Temp 36.5 C 08/15/22 23:34 Pulse 87 08/15/22 23:34 Resp 18 08/15/22 23:34 BP 133/66 08/15/22 23:34 Pulse Ox 96 08/15/22 23:34 Laboratory Results - last 24 hr 08/15/22 08/15/22 08/16/22 07:30 07:30 06:08 WBC 12.07 H 12.40 H RBC 3.20 L 3.23 L Hgb 10.3 L 9.8 L Hct 29.6 L 30.0 L MCV 93 93 MCH 32.2 30.3 MCHC 34.8 D 32.7 D RDW 14.6 14.4 Plt Count 705 H 726 H MPV 8.8 8.8 Immature Gran % 2.5 3.2 Neutrophils % 71.7 64.7 Lymphocytes % 15.4 19.4 Monocytes % 7.4 8.5 Eosinophils % 2.3 3.4 Basophils % 0.7 0.8 Nucleated RBC % 0.0 0.0 Absolute Neutrophils 8.65 H 8.02 H Absolute Lymphocytes 1.86 2.41 Absolute Monocytes 0.89 H 1.05 H Absolute Eosinophils 0.28 0.42 Absolute Basophils 0.08 0.10 Sodium 134 L Potassium 4.1 Chloride 100 Carbon Dioxide 29.3 Anion Gap 4.7 BUN 18 Creatinine 0.9 Est GFR (CKD-EPI 2020) 66.26 Glucose 168 H Calcium 9.3 Phosphorus 3.2 Magnesium 2.1 Total Bilirubin 0.3 AST 18 ALT 20 Alkaline Phosphatase 189 H Total Protein 7.0 Albumin 2.3 L Time Spent with Patient Time Spent with Patient: <25 minutes Time was spent: preparing to see the patient(eg.review tests)
[2022-08-16 07:22] LABS: ALT 26 U/L (14-59); AST 19 U/L (15-37); Albumin 2.3 g/dL (3.4-5.0); Alkaline Phosphatase 197 U/L (46-116); Anion Gap 8.5 mmol/L (3-11); BUN 24 mg/dL (7-18); Bilirubin, Total 0.2 mg/dL (0.2-1.0); CO2 28.5 mmol/L (21.0-32.0); Calcium 9.4 mg/dL (8.5-10.1); Chloride 96 mmol/L (98-107); Estimated GFR 58.39 (mL/min/1.73m2); Glucose 163 mg/dL (74-106); Magnesium 2.1 mg/dL (1.8-2.4); PHOSPHORUS 3.8 mg/dL (2.6-4.7); Potassium 4.1 mmol/L (3.5-5.1); Sodium 133 mmol/L (136-145)
[2022-08-16 07:58] VITALS: BP 118/56; PULSE 86; RESP 86; TEMP 36.8; O2SAT 96
[2022-08-16] MEDS: Gabapentin 300 MG CAP PO ×2 (08:10→13:14)
[2022-08-16] MEDS: Nystatin 500000 UNITS/5 ML SUSP 5ML CUP PO ×2 (08:11→20:49)
[2022-08-16] MEDS: Normal Saline Flush 10 ML SYR IVP ×3 (08:11→22:56)
[2022-08-16] MEDS: Lidocaine 5% Patch 1 PATCH TP (08:11)
[2022-08-16] MEDS: DULoxetine 30 MG CAP PO (08:11)
[2022-08-16] MEDS: QUEtiapine 25 MG TAB PO ×2 (08:11→20:49)
[2022-08-16] MEDS: Pantoprazole 40 MG VIAL IVP ×2 (08:11→20:50)
--- NOTE | 2022-08-16 08:38 | CMPROGNOTE_ITS ---
- If Service Date Differs Date of service: 08/16/22 Time of Service: 08:38 Care Management Progress Note S/O: Jolanta continues to require close monitoring and treatment. She is being followed by Surgery, has a NGT, receiving TPN and being followed by nutrition. Per PT, Jolanta's functional mobility is good and she is able to discharge home with resumption of [facility] PT, when medically ready. Jolanta is lying in bed when CM met with her. She is tired and able to engage in conversation and is looking fo rward to discharging home when she is medically ready with resumption of [facility] and community support. Per pt, she receives 5 hrs/day of home support through [facility] and that will have to be enough if they can't offer her more services. Janeth Bailon from [facility] verified that Jolanta receives 5 hrs/day of home support through [facility], and also indicated that she is eligible for more services. [facility] doesn't have staffing to support more hours therefor Janeth will reach out to [facility] and see if they have any availability. Janeth will let us know. CM to follow. A: 76 year old female admitted to [facility] 08/03/22 for SBO P: Jolanta refuses SNF for STR. Anticipate, Jolanta will discharge home via [facility] W/C van with resumption of [facility] RN/PT/PRODUCTION ASSOCIATE and increased community supports, if available. Janeth Walker from [facility] is contacting [facility]. In addition, SHAJI left for Amber Call: Lap Welder at [facility] to determine coordination of additional support upon discharge. [facility] RN may be available to support as well, per [facility] raschel knitting machine operator. CM continues to follow.
--- NOTE | 2022-08-16 08:38 | PDOC.CMPRO ---
- If Service Date Differs Date of service: 08/16/22 Time of Service: 08:38 Care Management Progress Note S/O: Jolanta continues to require close monitoring and treatment. She is being followed by Surgery, has a NGT, receiving TPN and being followed by nutrition. Per PT, Jolanta's functional mobility is good and she is able to discharge home with resumption of [facility] PT, when medically ready. Jolanta is lying in bed when CM met with her. She is tired and able to engage in conversation and is looking forward to discharging home when she is medically ready with resumption of [facility] and community support. Per pt, she receives 5 hrs/day of home support through [facility] and that will have to be enough if they can't offer her more services. Janeth Bailon from [facility] verified that Jolanta receives 5 hrs/day of home support through [facility], and also indicated that she is eligible for more services. [facility] doesn't have staffing to support more hours therefor Janeth will reach out to [facility] and see if they have any availability. Janeth will let us know. CM to follow. A: 76 year old female admitted to [facility] 08/03/22 for SBO P: Jolanta refuses SNF for STR. Anticipate, Jolanta will discharge home via [facility] W[facility]C van with resumption of [facility] RN/PT/[employer] DIRECTOR and increased community supports, if available. Janeth Walker from [facility] is contacting [facility]. In addition, SHAJI left for Amber Call: Electroencephalographic Technician at [facility] to determine coordination of additional support upon discharge. [facility] RN may be available to support as well, per [facility] automatic profile shaper operator. CM continues to follow.
[2022-08-16] MEDS: diphenhydrAMINE 50 MG/ML VIAL 25 MG IVP ×2 (10:02→17:02)
[2022-08-16] MEDS: Simethicone 80 MG CHEW 40 MG PO ×4 (10:02→22:43)
--- NOTE | 2022-08-16 13:16 | PT.INTREAT ---
Date of service: 08/16/22 Time of Service: 11:20 PT Notes Visit Reasons: Small Bowel Obstruction Inpatient Physical Therapy Treatment Note [facility] Date: 08/16/2022 PRECAUTIONS: Fall, activity as tolerated, NG tube SUBJECTIVE: Jolanta is pleasant and agreeable to participating in PT. OBJECTIVE: PAIN: Patient c/o a sore throat due to NG tube. BED MOBILITY/TRANSFERS Rolling L/R: I Supine-sit: I Sit-stand: I Stand-sit: I GAIT Assistive Device: FWW Weight bearing: Full Assist: S Distance: 350' in a.m.; 300' in p.m. Deviation: Unremarkable gait TOILETING: Patient toileted with minimal assist STAIRS: Patient reports she has elevator to get to her apartment, no need for stair training at this time. ASSESSMENT: Patient tolerated session without complaint. She continues to demonstrate unremarkable gait with FWW support and supervision. She is able to perform all transfers independently at this time. PLAN: Continue progressing transfers and gait distance and encouraging participation and continued progression toward independence. TREATMENT CODE/TIME: Session 1: 30 minutes; 52895 x2 (11:20) Session 2: 15 minutes; [id number] (15:25)
[2022-08-16 15:40] VITALS: BP 164/81; PULSE 91; RESP 18; TEMP 36.9; O2SAT 98
--- NOTE | 2022-08-16 16:57 | CHAPLAIN ---
Jolanta had just got back into bed, she said, when I visited and said she was tired, so I didn't stay long. She said this has been a tough haul for her. She's disappointed that she hasn't heard from any neighbors at the [facility], but said she won't focus on that.
[2022-08-16] MEDS: LORazepam 0.5 MG TAB PO (22:38)
[2022-08-16] MEDS: Gabapentin 600 MG TAB PO (22:42)
[2022-08-16] MEDS: Melatonin 3 MG TAB PO (22:43)
[2022-08-16] MEDS: Amitriptyline 50 MG TAB 100 MG PO (22:43)
[2022-08-16] MEDS: Lidocaine Patch Removal 1 EACH TD (22:45)
[2022-08-16 23:16] VITALS: BP 128/65; PULSE 86; RESP 19; TEMP 36.7; O2SAT 97
[2022-08-17] MEDS: Insulin Aspart 300 UNITS/3 ML PEN SC ×4 (01:01→18:20)
[2022-08-17] MEDS: diphenhydrAMINE 50 MG/ML VIAL 25 MG IVP ×3 (01:03→18:07)
[2022-08-17] MEDS: AMPICILLIN SODIUM 1 GM in Normal Saline 50 ML IVPB (01:20)
[2022-08-17 06:38] VITALS: BP 124/62; PULSE 80; RESP 16; TEMP 37.1; O2SAT 95
[2022-08-17] MEDS: Heparin 5,000 UNITS/ML VIAL 5000 UNITS SC ×3 (06:38→21:48)
[2022-08-17] MEDS: ACETAMINOPHEN 1,000 MG/100 ML BTL 400 MG IVPB ×3 (06:41→21:47)
--- NOTE | 2022-08-17 07:23 | W.PM.PROGNOT ---
Date of Service Date of service: 08/17/22 Time of Service: 07:23 Assessment and Plan Assessment and plan (1) At high risk for skin breakdown: Status: Acute (2) UGI bleed: Status: Acute Assessment and plan: Continue Protonix Awaiting morning lab results (3) E. coli UTI (urinary tract infection): Status: Acute Assessment and plan: D/C Ampicillin, she has completed her 5 day course. (4) Postoperative paralytic ileus: Status: Acute Assessment and plan: Last BM noted to be on 08/10; Will trial suppositories, if no improvement or results will trial fleet's Hypoactive Bowel sounds NG tube in place, connected to intermittent suction at this time. Once OOB, will return to gravity drainage. Encouraged sitting in the chair and ambulation I saw and examined Jolanta on August 17 around 4:30 PM, and I agree with Priyanka Silva's note. She tolerated gravity drainage of the nasogastric tube through most of yesterday and last evening without any signs or symptoms of obstruction. Similarly, she has been doing quite well today. Her abdomen is soft, are less distended than previously, and not particularly tympanitic. I will shoot a chest x-ray tonight with the tube on gravity drainage. If there is any gastric distention, then I will put her back on suction, otherwise I think we can continue this trial of passive gastric decompression. We will continue the TPN for now. (5) Type 2 diabetes mellitus with complication, without long-term current use of insulin: Status: Chronic (6) Hyperlipidemia: Status: Chronic Qualifiers: Hyperlipidemia type: pure hypercholesterolemia Qualified Code(s): E78.00 - Pure hypercholesterolemia, unspecified (7) Hypoalbuminemia due to protein-calorie malnutrition: Status: Acute Assessment and plan: Continue TPN Adjusted electrolytes Insulin coverage patient is not tolerating any p.o. at this time (8) Multiple sclerosis: Status: Chronic (9) HTN (hypertension): Status: Acute Qualifiers: Hypertension type: primary hypertension Qualified Code(s): I10 - Essential (primary) hypertension (10) Mild cognitive impairment: Status: Acute (11) Urinary incontinence, mixed: Status: Acute (12) Fecal incontinence: Status: Acute Subjective Subjective Interval history since last seen: Patient is resting comfortably in bed. She denies any nausea or abdominal pain at this time. Exam Const General: cooperative, healthy appearing and comfortable Orientation: alert and oriented x3 Resp Effort & Inspection: normal respiratory effort, no audible wheezes and no cough Objective Last Vital Signs Temp 37.1 C 08/17/22 06:38 Pulse 80 08/17/22 06:38 Resp 16 08/17/22 06:38 BP 124/62 08/17/22 06:38 Pulse Ox 95 08/17/22 06:38 Laboratory Results - last 24 hr 08/16/22 06:08 Sodium 133 L Potassium 4.1 Chloride 96 L Carbon Dioxide 28.5 Anion Gap 8.5 BUN 24 H Creatinine 1.0 Est GFR (CKD-EPI 2020) 58.39 Glucose 163 H Calcium 9.4 Phosphorus 3.8 Magnesium 2.1 Total Bilirubin 0.2 AST 19 ALT 26 Alkaline Phosphatase 197 H Total Protein 7.0 Albumin 2.3 L Time Spent with Patient Time Spent with Patient: <25 minutes Time was spent: preparing to see the patient(eg.review tests)
[2022-08-17 07:24] LABS: Absolute Basophil Count 0.13 10^3/uL (0.0-0.2); Absolute Eosinophil Count 0.39 10^3/uL (0.0-0.7); Absolute Lymphocyte Count 2.49 10^3/uL (1.2-3.4); Absolute Monocyte Count 1.11 10^3/uL (0.1-0.8); Absolute Neutrophil Count 7.24 10^3/uL (1.2-6.7); Basophils % 1.1; Eosinophils % 3.3; HCT 29.8 % (36.0-46.0); HGB 9.5 g/dL (11.2-15.7); Lymphocytes % 20.8; MCH 30.3 pg (27.0-33.0); MCHC 31.9 % (32.0-36.0); MCV 95 fL (80-95); MPV 8.8 fL (8.0-11.0); Monocytes % 9.3; Neutrophils % 60.5; RBC 3.14 10^6/uL (3.93-5.22); RDW 14.3 % (11.7-14.6); RDW-SD 49.4 fL; WBC 11.96 10^3/uL (4.4-10.8)
[2022-08-17 07:34] LABS: ALT 28 U/L (14-59); AST 21 U/L (15-37); Albumin 2.4 g/dL (3.4-5.0); Alkaline Phosphatase 198 U/L (46-116); BUN 27 mg/dL (7-18); Bilirubin, Total 0.2 mg/dL (0.2-1.0); Calcium 9.1 mg/dL (8.5-10.1); Chloride 97 mmol/L (98-107); Estimated GFR 58.39 (mL/min/1.73m2); Glucose 162 mg/dL (74-106); Magnesium 2.1 mg/dL (1.8-2.4); PHOSPHORUS 3.9 mg/dL (2.6-4.7); Potassium 4.2 mmol/L (3.5-5.1); Sodium 132 mmol/L (136-145); Total Protein 6.8 g/dL (6.4-8.2)
[2022-08-17 07:43] LABS: Diff Comment Agrees w/ Instrument; Platelet Count 672 10^3/uL (130-400); RBC Morphology Normal
--- NOTE | 2022-08-17 09:27 | CMPROGNOTE_ITS ---
- If Service Date Differs Date of service: 08/17/22 Time of Service: 09:27 Care Management Progress Note S/O: Jolanta continues to require close monitoring and treatment. She is being followed by Surgery, has a NGT, receiving TPN. Per PT, Jolanta's functional mobility is good and she is able to discharge home with resumption of [facility] PT, when medically ready. Jolanta is looking forward to discharging home when able with resumption of [facility] and community support. Per [facility]/CM Janeth Varela, Jolanta receives 3-5 hours a day of home support through [facility], but she is also eligible for more services. [facility] is at capacity as far as what they can provide, so Janeth plans to contact [facility] to see if they have any availability. Today, Lorie is sitting in her chair when SHAJI met with her. She is awake, alert and able to engage in conversation. She shares that she is feeling much better and is hopeful she will get her NG tube out soon so she can go home. Overall, she expresses that she is pleased with her progress and is smiling and happily working on a word search book. SHAJI contacted Janeth and provided an update on her voicemail. . A: 76 year old female admitted to [facility] 08/03/22 for SBO P: Jolanta refuses SNF for STR. Anticipate, Jolanta will discharge home via [facility] W[facility] van with resumption of [facility] RN/PT/CARAMEL CUTTER MACHINE and increased community supports, if available. Janeth Walker from [facility] is contacting [facility]. In addition, SHAJI left [facility] Amber Call: Botanical Technical Officer at [facility] to determine coordination of additional support upon discharge. [facility] RN may be available to support as well, per [facility] squeegee operator. SHAJI continues to follow.
--- NOTE | 2022-08-17 09:27 | PDOC.CMPRO ---
- If Service Date Differs Date of service: 08/17/22 Time of Service: 09:27 Care Management Progress Note S/O: Jolanta continues to require close monitoring and treatment. She is being followed by Surgery, has a NGT, receiving TPN. Per PT, Jolanta's functional mobility is good and she is able to discharge home with resumption of [facility] PT, when medically ready. Jolanta is looking forward to discharging home when able with resumption of [facility] and community support. Per [facility]/CM Janeth Varela, Jolanta receives 3-5 hours a day of home support through [facility], but she is also eligible for more services. [facility] is at capacity as far as what they can provide, so Janeth plans to contact [facility] to see if they have any availability. Today, Lorie is sitting in her chair when SHAJI met with her. She is awake, alert and able to engage in conversation. She shares that she is feeling much better and is hopeful she will get her NG tube out soon so she can go home. Overall, she expresses that she is pleased with her progress and is smiling and happily working on a word search book. SHAJI contacted Janeth and provided an update on her voicemail. . A: 76 year old female admitted to [facility] 08/03/22 for SBO P: Jolanta refuses SNF for STR. Anticipate, Jolanta will discharge home via [facility] van with resumption of [facility] RN/PT/PARKING STATION ATTENDANT and increased community supports, if available. Janeth Walker from [facility] is contacting [facility]. In addition, SHAJI left [facility] Amber Call: Reservoir Engineer at [facility] to determine coordination of additional support upon discharge. [facility] RN may be available to support as well, per [facility] blow up operator. SHAJI continues to follow.
[2022-08-17] MEDS: Normal Saline Flush 10 ML SYR IVP ×2 (09:30→21:15)
[2022-08-17] MEDS: Bisacodyl 10 MG SUPP PR (09:31)
[2022-08-17] MEDS: Nystatin 500000 UNITS/5 ML SUSP 5ML CUP PO ×3 (09:31→21:15)
[2022-08-17] MEDS: QUEtiapine 25 MG TAB PO ×2 (09:32→21:14)
[2022-08-17] MEDS: DULoxetine 30 MG CAP PO (09:32)
[2022-08-17] MEDS: Simethicone 80 MG CHEW 40 MG PO ×4 (09:33→21:11)
[2022-08-17] MEDS: Lidocaine 5% Patch 1 PATCH TP (09:33)
[2022-08-17] MEDS: Gabapentin 300 MG CAP PO ×2 (09:33→14:23)
[2022-08-17] MEDS: Pantoprazole 40 MG VIAL IVP (09:34)
--- NOTE | 2022-08-17 16:30 | DI.RAD_ITS ---
Exam(s) XR ABDOMEN FLAT PLATE EXAM: 2D digital imaging was performed. CLINICAL HISTORY: check for gastric distention. COMPARISON: CR XR ABDOMEN FLAT UPRIGHT from 08/15/2022 TECHNIQUE: Supine views of the abdomen performed. FINDINGS: BOWEL GAS PATTERN: Nondistended. The stomach is nondistended. A nasogastric tube projects in the sto mach, unchanged. Contrast is again noted in the colon. Diverticula noted in sigmoid. CALCIFICATIONS: No radiopaque calcifications. OSSEOUS STRUCTURES: Normal for age. OTHER FINDINGS: Midline skin truman. Suture material left mid abdomen. IMPRESSION: No evidence of gastric distension. NG tube is in the stomach. Nonobstructive bowel gas pattern. DATA REPOSITORY: RADIATION DOSE DELIVERED:
[2022-08-17 16:31] VITALS: BP 126/77; PULSE 90; RESP 18; TEMP 36.8; O2SAT 100
--- NOTE | 2022-08-17 18:16 | DI.VRAD_ITS ---
PROCEDURE INFORMATION: Exam: XR Abdomen Exam date and time: 08/17/2022 5:28 PM Age: 76 years old Clinical indication: Other: Evaluate for gastric distension TECHNIQUE: Imaging protocol: Radiologic exam of the abdomen. Views: Frontal supine view of the abdomen. 1 View. COMPARISON: CR XR ABDOMEN FLAT UPRIGHT 08/15/2022 8:51 AM FINDINGS: Tubes, catheters and devices: An enteric feeding tube is present, with its tip located in the stomach in good position. Gastrointestinal tract: No dilated bowel. The colon is decompressed Bones/joints: Unremarkable. IMPRESSION: An enteric feeding tube is present, with its tip located in the stomach in good position. The colon is decompressed Dictated and Authenticated by: Marcelo Lopez MD. Ordering:GABRIEL Valero MD
[2022-08-17] MEDS: MORPHine 2 MG/ML SYR IVP (19:46)
[2022-08-17] MEDS: LORazepam 0.5 MG TAB PO (21:13)
[2022-08-17] MEDS: Melatonin 3 MG TAB PO (21:14)
[2022-08-17] MEDS: Gabapentin 600 MG TAB PO (21:14)
[2022-08-17] MEDS: Amitriptyline 50 MG TAB 100 MG PO (21:14)
[2022-08-17] MEDS: Lidocaine Patch Removal 1 EACH TD (21:17)
[2022-08-17 23:26] VITALS: BP 125/75; PULSE 88; RESP 18; TEMP 36.9; O2SAT 100
[2022-08-18 00:39] VITALS: O2SAT 100
[2022-08-18] MEDS: Pantoprazole 40 MG VIAL IVP ×3 (00:44→20:18)
[2022-08-18] MEDS: Normal Saline Flush 10 ML SYR IVP ×8 (00:45→20:18)
[2022-08-18] MEDS: Insulin Aspart 300 UNITS/3 ML PEN SC ×5 (00:54→23:39)
[2022-08-18] MEDS: Heparin 5,000 UNITS/ML VIAL 5000 UNITS SC ×3 (05:34→22:03)
[2022-08-18] MEDS: ACETAMINOPHEN 1,000 MG/100 ML BTL 400 MG IVPB ×3 (05:35→22:02)
[2022-08-18 06:36] VITALS: BP 114/71; PULSE 83; RESP 17; TEMP 36.6; O2SAT 95
[2022-08-18] MEDS: Lidocaine 5% Patch 1 PATCH TP (09:29)
[2022-08-18] MEDS: QUEtiapine 25 MG TAB PO ×2 (09:31→20:19)
[2022-08-18] MEDS: Simethicone 80 MG CHEW 40 MG PO ×4 (09:31→22:04)
[2022-08-18] MEDS: DULoxetine 30 MG CAP PO (09:31)
[2022-08-18] MEDS: Gabapentin 300 MG CAP PO ×2 (09:31→13:17)
[2022-08-18] MEDS: Nystatin 500000 UNITS/5 ML SUSP 5ML CUP PO ×3 (09:31→20:19)
--- NOTE | 2022-08-18 09:38 | PT.INTREAT ---
PT Notes Visit Reasons: Small Bowel Obstruction Inpatient Physical Therapy Treatment Note [facility] Date: 08/18/22 PRECAUTIONS: SUBJECTIVE: Pt reports that she was all excited to go home and now hse can't is is upset about that and feels she is never going to leave. OBJECTIVE: Supine-sit: Darling x 1 Sit-supine: SBA Sit-stand: SBA Stand-sit: SBA GAIT Assistive Device: FWW Weight bearing: full Assist: SBA Distance: Small loop THEREX: Refused ASSESSMENT: Pt seems discouraged and upset today. Took convincing to participate in PT today. PLAN: Cont as per PT POC. TREATMENT CODE/TIME: 9:40-9:55 (15) TA
[2022-08-18 11:37] LABS: HCT 29.6 % (36.0-46.0); HGB 9.9 g/dL (11.2-15.7); MCH 31.6 pg (27.0-33.0); MCHC 33.4 % (32.0-36.0); MCV 95 fL (80-95); MPV 8.8 fL (8.0-11.0); Platelet Count 671 10^3/uL (130-400); RBC 3.13 10^6/uL (3.93-5.22); RDW 14.2 % (11.7-14.6); RDW-SD 48.8 fL; WBC 10.67 10^3/uL (4.4-10.8)
[2022-08-18 11:50] LABS: BUN 32 mg/dL (7-18); Calcium 9.1 mg/dL (8.5-10.1); Chloride 96 mmol/L (98-107); Estimated GFR 58.39 (mL/min/1.73m2); Glucose 253 mg/dL (74-106); Magnesium 2.2 mg/dL (1.8-2.4); Potassium 4.5 mmol/L (3.5-5.1); Sodium 129 mmol/L (136-145)
[2022-08-18 11:54] LABS: PHOSPHORUS 3.6 mg/dL (2.6-4.7)
[2022-08-18] MEDS: Normal Saline 500 ML 100 ML IV (13:17)
--- NOTE | 2022-08-18 13:19 | PGE_ITS ---
Date of Service Date of service: 08/18/22 Time of Service: 21:57 Assessment and Plan Assessment and plan (1) Small bowel obstruction: Status: Acute Assessment and plan: 76 yo woman post-op from ex-lap, SBR with persistent ileus vs recurrent obstruction. HD stable, requiring TPN. Benign soft and non-distended abdominal exam. No bowel function. Really puzzling case but overall she's doing pretty well and her mood is excellent. Operative re-exploration remains incredibly risky and would be reserved for severe decompensation. Current management strategy of patiently waiting to see if this acute post-op condition resolves itself without risking more surgery is the best move in my opinion. It's been more than a week since her last cross-sectional imaging - we'll recheck how things are progressing with imaging tomorrow morning if not drastic improvement. BUN creeping up might represent a little too much protein in the TPN and may need to be adjusted on Saturday morning if it continues to uptrend. OVERALL PLAN: Cont TPN - monitor e-lytes, BUN and overall hydration status. DVT prophylaxis Repeat Gastrograffin down NGT which isn't to suction anyway - we'll see where it ends up tomorrow on imaging. Reglan trial for possible motility issues Surgical exploration reserved for acute decompensation, or in the next few weeks if remains in this condition. Subjective Subjective Interval history since last seen: Patient has no complaints and didn't have any issues overnight. Denies nausea. Didn't vomit. NGT has been off suction since yesterday evening. Still no flatus or bowel function - How can anything come out if I'm not eati ng? No fevers. Exam Narrative Exam Narrative: Gen: nontoxic, comfortable and interactive Neuro: AxOx3 Psych: Surprisingly upbeat, good mood, seemingly reasonable insight and understanding. Abdomen: Soft, nondistended, nontender. Midline incision looks perfect. At umbilicus there is somewhat of a small purulent scab, but no erythema, discharge or induration. [place] are intact. Objective Last Vital Signs Temp 97.9 F 08/18/22 06:36 Pulse 83 08/18/22 06:36 Resp 17 08/18/22 06:36 BP 114/71 08/18/22 06:36 Pulse Ox 95 08/18/22 06:36 Laboratory Results - last 24 hr 08/18/22 08/18/22 08/18/22 11:29 11:29 11:29 WBC 10.67 RBC 3.13 L Hgb 9.9 L Hct 29.6 L MCV 95 MCH 31.6 MCHC 33.4 RDW 14.2 Plt Count 671 H MPV 8.8 Sodium 129 L Potassium 4.5 Chloride 96 L Carbon Dioxide 27.0 Anion Gap 6.0 BUN 32 H Creatinine 1.0 Est GFR (CKD-EPI 2020) 58.39 Glucose 253 H Calcium 9.1 Phosphorus 3.6 Magnesium 2.2 Time Spent with Patient Time Spent with Patient: 25-34 minutes Time was spent: preparing to see the patient(eg.review tests), ordering medications,tests, procedures, counseling the patient and care coordination
[2022-08-18] MEDS: Gastrografin 120 ML BTL NG (14:38)
[2022-08-18 15:36] VITALS: BP 150/68; PULSE 89; RESP 16; TEMP 37; O2SAT 97
[2022-08-18] MEDS: MORPHine 2 MG/ML SYR IVP ×2 (15:45→20:20)
[2022-08-18] MEDS: LORazepam 0.5 MG TAB PO (20:19)
[2022-08-18] MEDS: Lidocaine Patch Removal 1 EACH TD (22:00)
[2022-08-18] MEDS: Amitriptyline 50 MG TAB 100 MG PO (22:04)
[2022-08-18] MEDS: Melatonin 3 MG TAB PO (22:05)
[2022-08-18] MEDS: Gabapentin 600 MG TAB PO (22:05)
[2022-08-18 23:41] VITALS: BP 107/64; PULSE 86; RESP 18; TEMP 37.1; O2SAT 94
[2022-08-19] MEDS: Heparin 5,000 UNITS/ML VIAL 5000 UNITS SC ×3 (05:55→23:29)
[2022-08-19] MEDS: ACETAMINOPHEN 1,000 MG/100 ML BTL 400 MG IVPB ×3 (05:56→23:28)
[2022-08-19] MEDS: Insulin Aspart 300 UNITS/3 ML PEN SC ×3 (06:07→18:31)
[2022-08-19 06:22] VITALS: BP 118/62; PULSE 85; RESP 18; TEMP 36.3; O2SAT 96
--- NOTE | 2022-08-19 07:14 | PGE_ITS ---
Date of Service Date of service: 08/19/22 Time of Service: 07:52 Assessment and Plan Assessment and plan (1) Small bowel obstruction: Status: Acute Assessment and plan: 76-year-old woman with some bowel function now overnight after an usual saga of obstruction and postop ileus. Her abdominal exam is benign. She is hemodynamically stable. With this new bowel function and the fact that she has tolerated but NG tube suction for couple of days now we will remove the NG tube and start her on a trial of ice chips. We will go extremely slow. Overall plan: #Hold off on repeat imaging with this new and drastic clinical change #DVT prophylaxis #Out of bed and ambulate #Continue TPN #Check lab work #Sips of clear liquids only. Consider advancing the diet tomorrow at the earliest. Subjective Subjective Interval history since last seen: Patient had a bowel movement overnight. She has rested comfortably throughout the night and has no complaints at the bedside. She has no nausea and no vomiting. She denies abdominal pain. Exam Narrative Exam Narrative: General: Nontoxic, comfortable and interactive. Abdomen: Soft, nondistended and grossly nontender. Incision looks great. [place] are intact. There is no erythema. The small scab remains around the bellybutton. No discharge. Objective Last Vital Signs Temp 97.3 F L 08/19/22 06:22 Pulse 85 08/19/22 06:22 Resp 18 08/19/22 06:22 BP 118/62 08/19/22 06:22 Pulse Ox 96 08/19/22 06:22 Laboratory Results - last 24 hr 08/18/22 08/18/22 08/18/22 11:29 11:29 11:29 WBC 10.67 RBC 3.13 L Hgb 9.9 L Hct 29.6 L MCV 95 MCH 31.6 MCHC 33.4 RDW 14.2 Plt Count 671 H MPV 8.8 Sodium 129 L Potassium 4.5 Chloride 96 L Carbon Dioxide 27.0 Anion Gap 6.0 BUN 32 H Creatinine 1.0 Est GFR (CKD-EPI 2020) 58.39 Glucose 253 H Calcium 9.1 Phosphorus 3.6 Magnesium 2.2 Time Spent with Patient Time Spent with Patient: <25 minutes Time was spent: preparing to see the patient(eg.review tests), indepentently interpreting results and counseling the patient
[2022-08-19] MEDS: Normal Saline Flush 10 ML SYR IVP ×2 (08:25→14:55)
[2022-08-19] MEDS: MORPHine 2 MG/ML SYR IVP (08:25)
[2022-08-19] MEDS: Lidocaine 5% Patch 1 PATCH TP (08:26)
[2022-08-19] MEDS: Pantoprazole 40 MG VIAL IVP ×2 (08:26→20:56)
[2022-08-19] MEDS: DULoxetine 30 MG CAP PO (08:27)
[2022-08-19] MEDS: LORazepam 0.5 MG TAB PO (08:27)
[2022-08-19] MEDS: Nystatin 500000 UNITS/5 ML SUSP 5ML CUP PO ×3 (08:27→20:54)
[2022-08-19] MEDS: Gabapentin 300 MG CAP PO ×2 (08:27→14:56)
[2022-08-19] MEDS: Simethicone 80 MG CHEW 40 MG PO ×3 (08:27→20:54)
[2022-08-19] MEDS: QUEtiapine 25 MG TAB PO ×2 (08:28→21:05)
[2022-08-19 09:12] LABS: PHOSPHORUS 3.2 mg/dL (2.6-4.7)
[2022-08-19 09:14] LABS: ALT 47 U/L (14-59); AST 27 U/L (15-37); Albumin 2.4 g/dL (3.4-5.0); Alkaline Phosphatase 225 U/L (46-116); Anion Gap 4.4 mmol/L (3-11); BUN 38 mg/dL (7-18); Bilirubin, Total 0.2 mg/dL (0.2-1.0); CO2 26.6 mmol/L (21.0-32.0); CREATININE 1.1 mg/dL (0.55-1.02); Calcium 9.1 mg/dL (8.5-10.1); Chloride 100 mmol/L (98-107); Estimated GFR 52.08 (mL/min/1.73m2); Glucose 237 mg/dL (74-106); Magnesium 2.1 mg/dL (1.8-2.4); Potassium 4.8 mmol/L (3.5-5.1); Sodium 131 mmol/L (136-145); Total Protein 6.5 g/dL (6.4-8.2)
--- NOTE | 2022-08-19 09:39 | PT.INTREAT ---
PT Notes Visit Reasons: Small Bowel Obstruction Inpatient Physical Therapy Treatment Note [facility] Date: 08/19/22 OBJECTIVE: Supine-sit: CGA Sit-supine: CGA Sit-stand: CGA Stand-sit: CGA GAIT Assistive Device: FWW Weight bearing: Full Assist: CGA Distance: From room to [facility] [place] [place] desk and back. Deviation: Pt had slight LOB during ambulation but was able to correct independently. THEREX: Refused too tired ASSESSMENT: Pt tolerated today's session fairly well. Was more agreeable to PT this time and more up beat. PLAN: Cont as per PT POC. TREATMENT CODE/TIME: 9:15-9:35 (20) TA
[2022-08-19] MEDS: Normal Saline 500 ML 100 ML IV (14:54)
[2022-08-19 15:05] VITALS: BP 117/66; PULSE 78; RESP 12; TEMP 36.3; O2SAT 98
[2022-08-19] MEDS: Lidocaine Patch Removal 1 EACH TD (21:01)
[2022-08-19 23:18] VITALS: BP 128/68; PULSE 98; RESP 18; TEMP 36.6; O2SAT 97
[2022-08-19] MEDS: Melatonin 3 MG TAB PO (23:31)
[2022-08-19] MEDS: Amitriptyline 50 MG TAB 100 MG PO (23:31)
[2022-08-19] MEDS: Gabapentin 600 MG TAB PO (23:32)
[2022-08-20] MEDS: Insulin Aspart 300 UNITS/3 ML PEN SC ×4 (00:36→18:11)
[2022-08-20] MEDS: Normal Saline Flush 10 ML SYR IVP ×5 (05:35→22:24)
[2022-08-20] MEDS: Heparin 5,000 UNITS/ML VIAL 5000 UNITS SC ×3 (05:37→22:24)
[2022-08-20] MEDS: ACETAMINOPHEN 1,000 MG/100 ML BTL 400 MG IVPB ×3 (05:38→22:23)
[2022-08-20 06:30] LABS: HCT 27.2 % (36.0-46.0); HGB 8.6 g/dL (11.2-15.7); MCH 30.6 pg (27.0-33.0); MCHC 31.6 % (32.0-36.0); MCV 97 fL (80-95); MPV 9.1 fL (8.0-11.0); Platelet Count 548 10^3/uL (130-400); RBC 2.81 10^6/uL (3.93-5.22); RDW 13.9 % (11.7-14.6); RDW-SD 49.4 fL; WBC 8.12 10^3/uL (4.4-10.8)
[2022-08-20 06:38] LABS: INR 0.9 (0.9-1.1); Prothrombin Time 9.4 sec (9.3-11.0)
[2022-08-20 06:48] LABS: ALT 39 U/L (14-59); AST 20 U/L (15-37); Albumin 2.4 g/dL (3.4-5.0); Alkaline Phosphatase 205 U/L (46-116); Anion Gap 7.1 mmol/L (3-11); BUN 30 mg/dL (7-18); Bilirubin, Total 0.2 mg/dL (0.2-1.0); CO2 25.9 mmol/L (21.0-32.0); CREATININE 0.9 mg/dL (0.55-1.02); Calcium 9.1 mg/dL (8.5-10.1); Chloride 99 mmol/L (98-107); Estimated GFR 66.26 (mL/min/1.73m2); Glucose 228 mg/dL (74-106); Potassium 4.7 mmol/L (3.5-5.1); Sodium 132 mmol/L (136-145); Total Protein 6.4 g/dL (6.4-8.2)
[2022-08-20 07:12] LABS: PHOSPHORUS 3.5 mg/dL (2.6-4.7)
[2022-08-20 08:00] VITALS: BP 137/70; PULSE 70; RESP 18; TEMP 36; O2SAT 98
[2022-08-20] MEDS: Nystatin 500000 UNITS/5 ML SUSP 5ML CUP PO ×3 (08:13→20:47)
[2022-08-20] MEDS: Simethicone 80 MG CHEW 40 MG PO ×4 (08:13→22:25)
[2022-08-20] MEDS: QUEtiapine 25 MG TAB PO ×2 (08:14→20:47)
[2022-08-20] MEDS: Lidocaine 5% Patch 1 PATCH TP (08:14)
[2022-08-20] MEDS: DULoxetine 30 MG CAP PO (08:14)
[2022-08-20] MEDS: Gabapentin 300 MG CAP PO ×2 (08:14→14:05)
--- NOTE | 2022-08-20 08:31 | CMPROGNOTE_ITS ---
- If Service Date Differs Date of service: 08/20/22 Time of Service: 08:31 Care Management Progress Note S/O: Jolanta is lying in bed when CM met with her. She is awake, alert and easily engages in conversation. She is feeling better today, her NG tube is out and she is looking forward to discharging home when she is medically ready. CM spoke with pts SHAJI Walker today and provided updates, estimated discharge date is unknown at this time. CM will follow. A: 76 year old female admitted to [facility] 08/03/22 for SBO P: Anticipate, Jolanta will discharge home via [facility] W[facility]C van with resumption of [facility] RN/PT/CURING PICKLING PACKER and increased community supports through [facility], if available. Janeth Walker from [facility] is coordinating home services. In addition, SHAJI left for Amber Call: Graphics Programmer at [facility] to determine coordination of additional support upon discharge. [facility] RN may be available to support as well, per [facility] suppository molding machine operator. SHAJI continues to follow.
--- NOTE | 2022-08-20 08:31 | PDOC.CMPRO ---
- If Service Date Differs Date of service: 08/20/22 Time of Service: 08:31 Care Management Progress Note S/O: Jolanta is lying in bed when CM met with her. She is awake, alert and easily engages in conversation. She is feeling better today, her NG tube is out and she is looking forward to discharging home when she is medically ready. CM spoke with pts SHAJI Walker today and provided updates, estimated discharge date is unknown at this time. CM will follow. A: 76 year old female admitted to [facility] 08/03/22 for SBO P: Anticipate, Jolanta will discharge home via [facility] W/C van with resumption of [facility] RN/PT/DIP DYER and increased community supports through [facility], if available. Janeth Walker from [facility] is coordinating home services. In addition, SHAJI left for Amber Call: Oven Heater at [facility] to determine coordination of additional support upon discharge. [facility] RN may be available to support as well, per [facility] staple processing machine operator. SHAJI continues to follow.
[2022-08-20] MEDS: Pantoprazole 40 MG VIAL IVP ×2 (09:15→20:44)
[2022-08-20 10:15] LABS: Prealbumin 30 mg/dL (20-40)
[2022-08-20 14:44] VITALS: BP 130/72; PULSE 64; RESP 17; TEMP 36.4; O2SAT 99
--- NOTE | 2022-08-20 14:59 | PT.INTREAT ---
PT Notes Visit Reasons: Small Bowel Obstruction Date: 08/20/22 Subjective: Pt approached multiple times during the course of the morning since pt was sleeping soundly, pt eventually woke up and was agreeable to participating with therapy. Pt awake when approached for therapy in the afternoon. OBJECTIVE: ? Supine-sit: CGA ? Sit-supine: CGA? Sit-stand: CGA? Stand-sit: CGA ? GAIT? Assistive Device: FWW ? Weight bearing: Full Assist: CGA? Distance:?150' ? Deviation: Pt slow short steps.? THEREX: Afternoon supine LE SLR, hip ab/ad, heel slides, clamshells, ankle circles, pumping, plantar dorsi flexion. Seated? Marching, SAQ/LAQ, knee/flexion/extension, ankle plantar/dorsi flexion inversion/eversion [id number] each ? ASSESSMENT:? Pt tolerated activity well, no complaints post session. PLAN: Continue with global strengthening and general conditioning for improved mobility and activity tolerance. TREATMENT CODE/TIME: 25mins am, 25mins pm [id number] ( 10:00-10:25/2:00-2:25)
--- NOTE | 2022-08-20 15:54 | PGE_ITS ---
Date of Service Date of service: 08/20/22 Time of Service: 15:54 Assessment and Plan Assessment and plan (1) Postoperative paralytic ileus: Status: Acute Assessment and plan: At this point, clinical indicators seem to point to resolution of her postoperative ileus or acute postop of early partial small bowel obstruction. Her white blood cell count has normalized, she has been afebrile, and she is tolerated the removal of the NG tube with no real symptoms. I will have her TPN rate today, anticipating that we will run out in the next 24 hours. Advance her diet to a postoperative simple and soft diet, and see how she does with that. I think if she feels okay in the next 24 hours, then I can try to work towards discharging her home sometime on Saturday. I want to make sure that she is able to meet her nutritional requirements without any supplements. Subjective Subjective Interval history since last seen: Jolanta says she feels much better. She had a bowel movement over the weekend. She has been tolerating sips of clear liquids without any difficulty. She cur rently denies any nausea or vomiting. She still has a little bit of abdominal discomfort, mostly when she is up and moving, but overall she feels like she is better, and she is eager to be discharged. Exam GI Inspection: normal to inspection and non-distended Palpation: soft, no hernias and nontender Percussion: normal to percussion Auscultation: normal bowel sounds Other: The incision is healed. Objective Last Vital Signs Temp 97.5 F L 08/20/22 14:44 Pulse 64 08/20/22 14:44 Resp 17 08/20/22 14:44 BP 130/72 08/20/22 14:44 Pulse Ox 99 08/20/22 14:44 Laboratory Results - last 24 hr 08/19/22 08/20/22 08/20/22 08:35 05:30 06:20 WBC 8.12 RBC 2.81 L Hgb 8.6 L Hct 27.2 L MCV 97 H MCH 30.6 MCHC 31.6 L RDW 13.9 Plt Count 548 H MPV 9.1 PT INR Sodium Potassium Chloride Carbon Dioxide Anion Gap BUN Creatinine Est GFR (CKD-EPI 2020) Glucose Calcium Phosphorus 3.5 Magnesium 2.0 Total Bilirubin AST ALT Alkaline Phosphatase Total Protein Albumin Prealbumin 30 08/20/22 08/20/22 06:20 06:20 WBC RBC Hgb Hct MCV MCH MCHC RDW Plt Count MPV PT 9.4 INR 0.9 Sodium 132 L Potassium 4.7 Chloride 99 Carbon Dioxide 25.9 Anion Gap 7.1 BUN 30 H Creatinine 0.9 Est GFR (CKD-EPI 2020) 66.26 Glucose 228 H Calcium 9.1 Phosphorus Magnesium Total Bilirubin 0.2 AST 20 ALT 39 Alkaline Phosphatase 205 H Total Protein 6.4 Albumin 2.4 L Prealbumin Time Spent with Patient Time Spent with Patient: 25-34 minutes Time was spent: preparing to see the patient(eg.review tests) and counseling the patient
[2022-08-20] MEDS: MORPHine 2 MG/ML SYR IVP (20:43)
[2022-08-20] MEDS: Protein Nutritional Supplement 16 GM 1 OUNCE PACKET PO (20:47)
[2022-08-20] MEDS: Lidocaine Patch Removal 1 EACH TD (21:04)
[2022-08-20] MEDS: Gabapentin 600 MG TAB PO (22:25)
[2022-08-20] MEDS: Melatonin 3 MG TAB PO (22:25)
[2022-08-20] MEDS: Amitriptyline 50 MG TAB 100 MG PO (22:30)
[2022-08-20 23:25] VITALS: BP 130/75; PULSE 64; RESP 18; TEMP 36.8; O2SAT 99
[2022-08-21] MEDS: Insulin Aspart 300 UNITS/3 ML PEN SC ×4 (00:16→17:52)
[2022-08-21] MEDS: ACETAMINOPHEN 1,000 MG/100 ML BTL 400 MG IVPB ×3 (05:33→20:30)
[2022-08-21] MEDS: Heparin 5,000 UNITS/ML VIAL 5000 UNITS SC ×3 (05:34→20:11)
[2022-08-21] MEDS: Normal Saline 500 ML 100 ML IV (05:42)
[2022-08-21] MEDS: Normal Saline Flush 10 ML SYR IVP ×3 (06:21→21:35)
[2022-08-21 06:34] LABS: HCT 29.3 % (36.0-46.0); HGB 9.5 g/dL (11.2-15.7); MCH 30.6 pg (27.0-33.0); MCHC 32.4 % (32.0-36.0); MCV 95 fL (80-95); Platelet Count 571 10^3/uL (130-400); RDW-SD 48.6 fL
[2022-08-21 06:49] LABS: Anion Gap 8.4 mmol/L (3-11); BUN 24 mg/dL (7-18); CO2 26.6 mmol/L (21.0-32.0); CREATININE 1.2 mg/dL (0.55-1.02); Calcium 9.3 mg/dL (8.5-10.1); Chloride 95 mmol/L (98-107); Estimated GFR 46.91 (mL/min/1.73m2); Glucose 173 mg/dL (74-106); Magnesium 1.7 mg/dL (1.8-2.4); PHOSPHORUS 4.2 mg/dL (2.6-4.7); Potassium 4.5 mmol/L (3.5-5.1); Sodium 130 mmol/L (136-145)
[2022-08-21 07:33] VITALS: BP 101/61; PULSE 87; RESP 16; TEMP 36.7; O2SAT 94
[2022-08-21] MEDS: Protein Nutritional Supplement 16 GM 1 OUNCE PACKET PO ×2 (08:32→19:49)
[2022-08-21] MEDS: Lidocaine 5% Patch 1 PATCH TP (08:32)
[2022-08-21] MEDS: Gabapentin 300 MG CAP PO ×2 (08:33→13:28)
[2022-08-21] MEDS: QUEtiapine 25 MG TAB PO ×2 (08:33→19:55)
[2022-08-21] MEDS: Simethicone 80 MG CHEW 40 MG PO ×3 (08:33→19:53)
[2022-08-21] MEDS: DULoxetine 30 MG CAP PO (08:33)
[2022-08-21] MEDS: Nystatin 500000 UNITS/5 ML SUSP 5ML CUP PO ×2 (08:33→19:50)
--- NOTE | 2022-08-21 08:39 | W.PM.PROGNOT ---
Date of Service Date of service: 08/21/22 Time of Service: 08:39 Assessment and Plan Assessment and plan (1) Postoperative paralytic ileus: Status: Acute Assessment and plan: Continue with post-op diet Encouraged activity as tolerated BM x 2 yesterday Will continue to monitor for nausea vomiting and abdominal pain with PO intake. I saw and examined Jolanta around 11:30 AM and I agree with Priyanka Pichardo document. She tells me that she feels better today. She had a bowel movement yesterday but not this morning. She does not have much apetite, but she does tolerate food without any nausea. I removed her truman today. Her abdomen is mildy distended but not tender. I will advance her diet again today and we can re-assess tomorrow. Subjective Subjective Interval history since last seen: patient states that after eating last night she had some abdominal pain. Denies nausea and vomiting. She reports having a BM yesterday. Exam Const General: cooperative, healthy appearing and comfortable Orientation: alert and oriented x3 Resp Effort & Inspection: normal respiratory effort, no audible wheezes and no cough GI Inspection: normal to inspection Palpation: soft, no guarding and tender Objective Last Vital Signs Temp 36.7 C 08/21/22 07:33 Pulse 87 08/21/22 07:33 Resp 16 08/21/22 07:33 BP 101/61 08/21/22 07:33 Pulse Ox 94 08/21/22 07:33 Laboratory Results - last 24 hr 08/19/22 08/21/22 08/21/22 08:35 06:25 06:25 WBC 12.20 H RBC 3.10 L Hgb 9.5 L Hct 29.3 L MCV 95 MCH 30.6 MCHC 32.4 RDW 14.0 Plt Count 571 H MPV 9.0 Sodium 130 L Potassium 4.5 Chloride 95 L Carbon Dioxide 26.6 Anion Gap 8.4 BUN 24 H Creatinine 1.2 H Est GFR (CKD-EPI 2020) 46.91 Glucose 173 H Calcium 9.3 Phosphorus 4.2 Magnesium 1.7 L Prealbumin 30 Time Spent with Patient Time Spent with Patient: <25 minutes Time was spent: preparing to see the patient(eg.review tests)
[2022-08-21] MEDS: Pantoprazole 40 MG VIAL IVP ×2 (09:00→21:34)
--- NOTE | 2022-08-21 09:24 | CMPROGNOTE_ITS ---
- If Service Date Differs Date of service: 08/21/22 Time of Service: 09:25 Care Management Progress Note S/O: Jolanta is sitting up in bed when CM met with her. She is alert, oriented and easy to engage in conversation. Per Dr. Mehta, Jolanta will likely be ready for discharge home tomorrow. This makes Jolanta very happy. Anticipate, Jolanta will discharge home tomorrow with resumption of [facility] RN/PT/SHORTHAND REPORTER and community supports. Ashley and Janeth Walker from [facility] are notified. Per Janeth, Kasie is not able to o ffer increased home support at this time. Currently Jolanta receives 3-5 hours a day of home support and Janeth will provide ongoing assessment and coordination of [facility] services. SHAJI spoke with Sarai Ramirez [facility] Glass Cutter to notify of potential discharge home tomorrow. In addition, Sarai will help coordinate [facility] RN services following discharge. A: 76 year old female admitted to [facility] 08/03/22 for SBO P: Anticipate, Jolanta will discharge home via [facility] W[facility]C van with resumption of [facility] RN/PT/SHORTHAND REPORTER and increased community supports through [facility], if available. Janeth Walker from [facility] is coordinating home services. In addition, SHAJI left for Amber Call: Glass Cutter at [facility] to determine coordination of additional support upon discharge. [facility] RN may be available to support as well, per [facility] chip crusher operator. SHAJI continues to follow.
--- NOTE | 2022-08-21 09:24 | PDOC.CMPRO ---
- If Service Date Differs Date of service: 08/21/22 Time of Service: 09:25 Care Management Progress Note S/O: Jolanta is sitting up in bed when CM met with her. She is alert, oriented and easy to engage in conversation. Per Dr. Mehta, Jolanta will likely be ready for discharge home tomorrow. This makes Jolanta very happy. Anticipate, Jolanta will discharge home tomorrow with resumption of [facility] RN/PT/TRADEMARK PARALEGAL and community supports. Ashley and Janeth Walker from [facility] are notified. Per Janeth, Kasie is not able to offer increased home support at this time. Currently Jolanta receives 3-5 hours a day of home support and Janeth will provide ongoing assessment and coordination of [facility] services. SHAJI spoke with Chrissie Starks Courtesy Car Driver to notify of potential discharge home tomorrow. In addition, Sarai will help coordinate [facility] RN services following discharge. A: 76 year old female admitted to [facility] 08/03/22 for SBO P: Anticipate, Jolanta will discharge home via [facility] W[facility]C van with resumption of [facility] RN/PT/TRADEMARK PARALEGAL and increased community supports through [facility], if available. Janeth Walker from [facility] is coordinating home services. In addition, SHAJI left for Amber Call: Courtesy Car Driver at [facility] to determine coordination of additional support upon discharge. [facility] RN may be available to support as well, per Chrissie Evans flaker operator. SHAJI continues to follow.
--- NOTE | 2022-08-21 13:04 | W.NUTRFU ---
Date of service: 08/21/22 Time of Service: 13:04 Nutrition Note NOTE: TPN d/c yesterday as diet was advanced to surgical soft- documentation indicates good po intake on first day of diet advancement. Attempted to meet with Jolanta today however, she was asleep. Met with nursing, report that she is only taking bites of meals, taking protein supplement despite disliking taste. Going forward willll provide ensure clears on trays to encourage increased caloric/protein intake. Weight down 17 lbs since admission- 10% weight loss significant and of continued concern. Will continue to follow. Time Spent in Nutritional Counseling and Treatment: 0
[2022-08-21 15:20] VITALS: BP 110/65; PULSE 94; RESP 16; TEMP 36.5; O2SAT 96
--- NOTE | 2022-08-21 15:58 | PT.INNT ---
PT Notes Visit Reasons: Small Bowel Obstruction Pt approached multiple times during the course of the morning and afternoon, pt sleeping and doesn't want to be bothered or going to the toilet requesting this therapist to return but when therapist returns she would be in bed and refuses to get out. pt abdominal truman removed today.
[2022-08-21] MEDS: Amitriptyline 50 MG TAB 100 MG PO (19:54)
[2022-08-21] MEDS: Gabapentin 600 MG TAB PO (19:55)
[2022-08-21] MEDS: Lidocaine Patch Removal 1 EACH TD (19:56)
[2022-08-21] MEDS: Melatonin 3 MG TAB PO (19:58)
[2022-08-21] MEDS: Ondansetron 4 MG/2 ML VIAL IVP (23:30)
[2022-08-21 23:32] VITALS: BP 105/60; PULSE 87; RESP 16; TEMP 36.6; O2SAT 94
--- NOTE | 2022-08-22 | DI.RAD_ITS ---
Exam(s) XR ABDOMEN FLAT PLATE EXAM: 2D digital imaging was performed. CLINICAL HISTORY: increased abd pain. COMPARISON: CT CT ABDOMEN PELVIS W from 06/30/[address] ABDOMEN PELVIS W from 08/09/2022 CR XR ABDOMEN FLAT UPRIGHT from 08/15/2022 CR,XR XR ABDOMEN FLAT PLATE from 08/17/2022 TECHNIQUE: Supine views of the abdomen performed. FINDINGS: A nasogastric tube has been removed. There is now marked gastric distension is well as abnormal patricia ed distension of multiple loops of small bowel in the upper and mid abdomen with air-fluid levels. N o visibly dilated colon. IMPRESSION: 1. Marked distention of stomach and proximal to mid small bowel. DATA REPOSITORY: RADIATION DOSE DELIVERED:
[2022-08-22] MEDS: ACETAMINOPHEN 1,000 MG/100 ML BTL 400 MG IVPB ×3 (06:21→22:03)
[2022-08-22] MEDS: Heparin 5,000 UNITS/ML VIAL 5000 UNITS SC ×3 (06:21→22:02)
[2022-08-22 07:40] VITALS: BP 123/67; PULSE 92; RESP 13; TEMP 37; O2SAT 93
[2022-08-22 08:00] VITALS: O2SAT 92
[2022-08-22] MEDS: Insulin Aspart 300 UNITS/3 ML PEN SC ×4 (08:22→22:04)
--- NOTE | 2022-08-22 08:24 | W.PM.PROGNOT ---
Date of Service Date of service: 08/22/22 Time of Service: 08:24 Assessment and Plan Assessment and plan (1) Postoperative paralytic ileus: Status: Acute Assessment and plan: Patient has regular diet ordered, however patient had refused the items offered to her yesterday. Lengthy discussion with Jolanta on the importance of trialing solids prior to discharge home. Discussed her food preferences and she will try to improve her intake today. Relayed these requests and preferences to her nurse. If all goes well, ideally she will be discharged home tomorrow. Encouraged activity as tolerated Bowel function appears to have returned. She had 2 BMs again yesterday. Will continue to monitor for nausea vomiting and abdominal pain with PO intake. Hopeful discharge home tomorrow, after ensuring patient is able to tolerate increased intake of solid foods. I have evaluated the patient, and am in agreement with Priyanka Silva's note above. Grant Marte MD Subjective Subjective Interval history since last seen: Jolanta states that she is ready to go home. on further questioning patient states that she was refusing her meals yesterday because the items offered to her were not to her liking. Also she does describe a low appetite. Exam Const General: cooperative, healthy appearing and comfortable Orientation: alert and oriented x3 Resp Effort & Inspection: normal respiratory effort, no audible wheezes and no cough GI Inspection: normal to inspection Palpation: soft, no guarding and tender Objective Last Vital Signs Temp 37.0 C 08/22/22 07:40 Pulse 92 H 08/22/22 07:40 Resp 13 08/22/22 07:40 BP 123/67 08/22/22 07:40 Pulse Ox 93 08/22/22 07:40 Time Spent with Patient Time Spent with Patient: <25 minutes Time was spent: preparing to see the patient(eg.review tests)
[2022-08-22] MEDS: Protein Nutritional Supplement 16 GM 1 OUNCE PACKET PO ×3 (08:51→20:31)
[2022-08-22] MEDS: Pantoprazole 40 MG VIAL IVP ×2 (08:52→20:35)
[2022-08-22] MEDS: Lidocaine 5% Patch 1 PATCH TP (08:52)
[2022-08-22] MEDS: Nystatin 500000 UNITS/5 ML SUSP 5ML CUP PO ×3 (08:53→20:31)
[2022-08-22] MEDS: Normal Saline Flush 10 ML SYR IVP ×4 (08:53→22:02)
[2022-08-22] MEDS: Simethicone 80 MG CHEW 40 MG PO ×3 (08:54→22:00)
[2022-08-22] MEDS: DULoxetine 30 MG CAP PO (08:54)
[2022-08-22] MEDS: QUEtiapine 25 MG TAB PO ×2 (08:54→20:31)
[2022-08-22] MEDS: Gabapentin 300 MG CAP PO ×2 (08:54→14:11)
--- NOTE | 2022-08-22 10:29 | CMPROGNOTE_ITS ---
- If Service Date Differs Date of service: 08/22/22 Time of Service: 10:29 Care Management Progress Note S/O: Jolanta is sitting up in bed when CM met with her. She is alert, oriented and easy to engage in conversation. Per pt, she didn't have much of an appetite yesterday which she reviewed with Surgical. Per Surgical, Jolanta may discharge home tomorrow, after ensuring patient is able to tolerate increased intake of solid foods. Janeth Walker from [facility] and Chrissie Starks Lens And Frames Prescription Clerk are updated about potential discharge home tomorrow. Currently Jolanta receives 3-5 hours a day of home support and Janeth will provide ongoing assessment and coordination of [facility] services. Sarai will help coordinate [facility] RN services following discharge. A: 76 year old female admitted to [facility] 08/03/22 for SBO P: Anticipate, Jolanta will discharge home via [facility] W/C van with resumption of [facility] RN/PT/SPINDLE CARVER. Janeth Walker from [facility] is coordinating home services. In addition, SHAJI spoke with Lens And Frames Prescription Clerk at [facility] for coordination of additional support upon discharge. [facility] RN may be available to support as well, per [facility] Nathan sub arc operator. CM continues to follow.
--- NOTE | 2022-08-22 10:29 | PDOC.CMPRO ---
- If Service Date Differs Date of service: 08/22/22 Time of Service: 10:29 Care Management Progress Note S/O: Jolanta is sitting up in bed when CM met with her. She is alert, oriented and easy to engage in conversation. Per pt, she didn't have much of an appetite yesterday which she reviewed with Surgical. Per Surgical, Jolanta may discharge home tomorrow, after ensuring patient is able to tolerate increased intake of solid foods. Janeth Walker from [facility] and Chrissie Starks Lumber Bearer are updated about potential discharge home tomorrow. Currently Jolanta receives 3-5 hours a day of home support and Janeth will provide ongoing assessment and coordination of [facility] services. Sarai will help coordinate [facility] RN services following discharge. A: 76 year old female admitted to [facility] 08/03/22 for SBO P: Anticipate, Jolanta will discharge home via RCT W/C van with resumption of [facility] RN/PT/ASSISTANT TODDLER TEACHER. Janeth Walker from [facility] is coordinating home services. In addition, SHAJI spoke with Lumber Bearer at [facility] for coordination of additional support upon discharge. [facility] RN may be available to support as well, per [facility] Nathan milk drying machine operator. CM continues to follow.
--- NOTE | 2022-08-22 10:39 | PT.INTREAT ---
PT Notes Visit Reasons: Small Bowel Obstruction Date: 08/22/22 Subjective: Pt approached multiple times during the course of the morning and was refused at all times, pt expressed that she is very upset that she is not going home, pt eventually agreed to therapy later when pt was re-approached with nurse to help in persuading pt to take part in therapy. OBJECTIVE: ? Supine-sit: SBA ? Sit-supine: SBA? Sit-stand: SBA? Stand-sit: SBA ? GAIT? Assistive Device: FWW ? Weight bearing: Full Assist: supervision ? Distance:?100' ? Deviation: decreased harmeet speed, decreased step lenght, decreased step height.? Stair negotiation training 4 steps 6x/ 6 steps 4x Bilateral handrail, step trhough gait pattern. ? ASSESSMENT:? Pt complained and showed increased reluctance with participation requiring constant motivating for pt to continue with task. PLAN: Continue with global strengthening and general conditioning for improved mobility and activity tolerance. TREATMENT CODE/TIME:? 23mins maria esther, [id number] ( 10:10-10:33am)
--- NOTE | 2022-08-22 15:11 | PT.INTREAT ---
PT Notes Visit Reasons: Small Bowel Obstruction Pt refused participating with therapy in the afternoon, pt reports having abdominal pain and nausea. nurse aware of pt condition.
[2022-08-22] MEDS: MORPHine 2 MG/ML SYR IVP ×2 (15:35→20:42)
[2022-08-22] MEDS: Ondansetron 4 MG/2 ML VIAL IVP (15:35)
[2022-08-22 15:36] VITALS: BP 130/67; PULSE 98; RESP 19; TEMP 36.7; O2SAT 99
--- NOTE | 2022-08-22 18:43 | W.PM.PROGNOT ---
Date of Service Date of service: 08/22/22 Time of Service: 18:43 Assessment and Plan Assessment and plan (1) Small bowel obstruction: Status: Acute Assessment and plan: Pt decompensated with increased abdominal pain, minimal burping, and dry heaving this evening. She has also had minimal PO intake throughout the day, despite encouragement. Sh did have a large liquid stool and flatus earlier. AXR performed this evening demonstrated marked distention of stomach and proximal to mid small bowel. --NGT placement --NPO except ice chips and meds with sips --Pt agreed to ambulate multiple times tomorrow Objective Last Vital Signs Temp 98.1 F 08/22/22 15:36 Pulse 98 H 08/22/22 15:36 Resp 19 08/22/22 15:36 BP 130/67 08/22/22 15:36 Pulse Ox 99 08/22/22 15:36 Time Spent with Patient Time Spent with Patient: 25-34 minutes Time was spent: preparing to see the patient(eg.review tests), ordering medications,tests, procedures, referring, communicating with other health customer care representative, indepentently interpreting results and counseling the patient
[2022-08-22 19:20] VITALS: O2SAT 96
[2022-08-22] MEDS: Normal Saline 1,000 ML 80 ML IV (20:31)
[2022-08-22] MEDS: Lidocaine Patch Removal 1 EACH TD (20:51)
[2022-08-22] MEDS: LORazepam 0.5 MG TAB PO (21:14)
[2022-08-22] MEDS: Gabapentin 600 MG TAB PO (22:01)
[2022-08-22] MEDS: Amitriptyline 50 MG TAB 100 MG PO (22:02)
[2022-08-22] MEDS: Melatonin 3 MG TAB PO (22:02)
[2022-08-23 00:04] VITALS: BP 111/63; PULSE 85; RESP 18; TEMP 36.6; O2SAT 96
[2022-08-23] MEDS: Heparin 5,000 UNITS/ML VIAL 5000 UNITS SC ×3 (04:56→21:52)
[2022-08-23] MEDS: ACETAMINOPHEN 1,000 MG/100 ML BTL 400 MG IVPB ×3 (04:57→21:49)
[2022-08-23] MEDS: Normal Saline Flush 10 ML SYR IVP ×3 (05:40→20:56)
[2022-08-23 07:35] VITALS: BP 124/74; PULSE 89; RESP 16; TEMP 36.5; O2SAT 96
[2022-08-23] MEDS: Pantoprazole 40 MG VIAL IVP ×2 (09:17→20:53)
[2022-08-23] MEDS: DULoxetine 30 MG CAP PO (09:19)
[2022-08-23] MEDS: Lidocaine 5% Patch 1 PATCH TP (09:19)
[2022-08-23] MEDS: Simethicone 80 MG CHEW 40 MG PO ×4 (09:19→21:50)
[2022-08-23] MEDS: Gabapentin 300 MG CAP PO ×2 (09:20→13:53)
[2022-08-23] MEDS: Nystatin 500000 UNITS/5 ML SUSP 5ML CUP PO ×3 (09:20→20:53)
[2022-08-23] MEDS: QUEtiapine 25 MG TAB PO ×2 (09:20→20:53)
[2022-08-23] MEDS: Protein Nutritional Supplement 16 GM 1 OUNCE PACKET PO ×3 (09:22→20:53)
[2022-08-23 10:07] LABS: BUN 28 mg/dL (7-18); CREATININE 1.2 mg/dL (0.55-1.02); Calcium 8.8 mg/dL (8.5-10.1); Estimated GFR 46.91 (mL/min/1.73m2); Glucose 143 mg/dL (74-106); Potassium 3.6 mmol/L (3.5-5.1); Sodium 133 mmol/L (136-145)
[2022-08-23 10:08] LABS: Anion Gap 8.8 mmol/L (3-11); CO2 26.2 mmol/L (21.0-32.0); Chloride 98 mmol/L (98-107); Magnesium 1.5 mg/dL (1.8-2.4)
[2022-08-23 10:32] LABS: HCT 30.2 % (36.0-46.0); HGB 9.8 g/dL (11.2-15.7); MCH 30.7 pg (27.0-33.0); MCHC 32.5 % (32.0-36.0); MCV 95 fL (80-95); RBC 3.19 10^6/uL (3.93-5.22); WBC 11.43 10^3/uL (4.4-10.8)
[2022-08-23 10:33] LABS: Abs Immature Grans 0.13 10^3/uL (0.0-0.06); Absolute Basophil Count 0.06 10^3/uL (0.0-0.2); Absolute Eosinophil Count 0.08 10^3/uL (0.0-0.7); Absolute Lymphocyte Count 2.14 10^3/uL (1.2-3.4); Absolute Monocyte Count 0.96 10^3/uL (0.1-0.8); Absolute Neutrophil Count 8.06 10^3/uL (1.2-6.7); Basophils % 0.5; Eosinophils % 0.7; Immature Grans % 1.1; Lymphocytes % 18.7; MPV 9.9 fL (8.0-11.0); Monocytes % 8.4; Neutrophils % 70.6; Platelet Count 551 10^3/uL (130-400); RDW 14.1 % (11.7-14.6); RDW-SD 48.9 fL
[2022-08-23 10:34] LABS: Diff Comment PLT Morph Reviewed
--- NOTE | 2022-08-23 10:55 | CMPROGNOTE_ITS ---
- If Service Date Differs Date of service: 08/23/22 Time of Service: 10:55 Care Management Progress Note S/O: Surgical continues to follow. Jolanta is lying in bed when CM met with her. She is awake and able to engage in conversation. Per pt, she is feeling discouraged after having a set back yesterday evening and now has a NG tube. She is encouraged her to ambulate multiple times today per Surgery. Per PT, Jolanta has refused to ambulate this morning due to pain. Per PT, RN aware. CM will follow. A: 76 year old female admitted to [facility] 08/03/22 for SBO P: Anticipate, Jolanta will discharge home via RCT W/C van with resumption of [facility] RN/PT/GEOGRAPHIC INFORMATION SYSTEMS ENGINEER. Janeth Walker from [facility] is coordinating home services. In addition, SHAJI spoke with Automotive Brake Adjuster at [facility] for coordination of additional support upon discharge. [facility] to support as well, per [facility] transit mix operator. CM continues to follow.
--- NOTE | 2022-08-23 10:58 | CHAPLAIN ---
Jolanta was sitting up in bed when I visited. She was having some discomfort because of her NG tube. She said it may be taken out today to see if she can tolerate food. Jolanta said she's feeling discouraged because she's been her a long time and has been dealing with pain and discomfort. Jolanta lives in a [facility] apartment and very much looking forward to getting back there. When I asked if any family or friends have been in touch, she told me that's it's been a while since she heard from her [facility] friends, and her family members don't know she's here. She hasn't told her family in [place], she told me. She has a brother who lives locally, and he doesn't know either, Jolanta said, unless someone has told him. There aren't too many secrets in [place].
[2022-08-23] MEDS: Normal Saline 1,000 ML 80 ML IV (10:59)
[2022-08-23] MEDS: Insulin Aspart 300 UNITS/3 ML PEN SC (12:01)
--- NOTE | 2022-08-23 13:27 | PTTR_ITS ---
PT Notes Visit Reasons: Small Bowel Obstruction Subjective: Pt approached multiple times during the course of the morning and was refused at all attempts not to be rude but I don't want to walk or do anything today, pt response brought to director of career resources's attention and helped with getting pt to agree with a time in the afternoon for pt to do some gait training. pt eventually agreed to 1pm. OBJECTIVE: ? Supine-sit: Supervision? Sit-supine: Supervision ? Sit-stand: Supervision? Stand-sit: Supervision? GAIT? Assistive Device: IV post since pt was attached to IV line? Weight bearing: Full Assist: supervision ? Distance:?100'x 2? Deviation: decreased harmeet speed, decreased step length, decreased step height.? ASSESSMENT:? Pt able to gait train and finish task requiring a seated rest break in between distances. pt able to go back in bed and nurse in-charge of pt informed that pt is back in bed with a headache to be able to reconnect NGT as well as provide medication for pain management. PLAN: Continue with global strengthening and general conditioning for improved mobility and activity tolerance. TREATMENT CODE/TIME:? 30mins pm, 43094 ( 1:05-1:35pm)
[2022-08-23] MEDS: MAGNESIUM SULFATE 2 GM/50 ML BAG IVPB (15:01)
[2022-08-23] MEDS: POTASSIUM CHLORIDE 20 MEQ/100 ML BAG 50 MEQ IVPB ×2 (15:01→17:14)
[2022-08-23 15:05] VITALS: BP 131/70; PULSE 98; RESP 17; TEMP 37; O2SAT 97
--- NOTE | 2022-08-23 15:58 | W.PM.PROGNOT ---
Date of Service Date of service: 08/23/22 Time of Service: 15:59 Assessment and Plan Assessment and plan (1) Small bowel obstruction: Status: Acute Assessment and plan: 76-year-old female with prolonged and complicated course secondary to small bowel obstruction. --maintain NGT --NPO except sips and meds --avoid narcotics --OOB and ambulate --UGI/small bowel follow-through to evaluate level of obstruction --consider re-starting supplemental TPN --will increase IV fluids as there is high NG output --GI/DVT prophylaxis --may requre surgical re-exploration if symptoms do not resolve Pt discussed wiht Dr. Mehta, operative surgeon Subjective Subjective Interval history since last seen: The patient feels better today after the NGT was reintroduced yesterday evening. She still has some abdominal discomfort, but it is decreased. She denies nausea, and is passing some flatus. No stool today. She denies dysuria. Jolanta did ambulate out of bed this morning and is agreeable to another walk this afternoon. Exam Const General: cooperative, healthy appearing and no acute distress [facility] General nose exam: other (NGT in place, clamped) Resp Effort & Inspection: normal respiratory effort and able to speak in complete sentences Cardio Rate: regular rate Rhythm: regular rhythm GI Inspection: distended and incision (well-healing midline incision) Palpation: soft, not firm, no guarding, not rigid and tender in the LUQ Auscultation: hypoactive bowel sounds Back/Spine/Pelvis Back: no CVA tenderness Neuro General: patient alert, patient awake, patient oriented x3 and moves all extremities Cognition: normal cognition Speech: speech normal Psych Appearance: grossly normal Mental Status: mental status grossly normal Thought Process: normal Thought Content: normal Insight: insight good Judgment: judgment good Objective Last Vital Signs Temp 98.6 F 08/23/22 15:05 Pulse 98 H 08/23/22 15:05 Resp 17 08/23/22 15:05 BP 131/70 08/23/22 15:05 Pulse Ox 97 08/23/22 15:05 Laboratory Results - last 24 hr 08/23/22 08/23/22 05:40 05:40 WBC 11.43 H RBC 3.19 L Hgb 9.8 L Hct 30.2 L MCV 95 MCH 30.7 MCHC 32.5 RDW 14.1 Plt Count 551 H MPV 9.9 Immature Gran % 1.1 Neutrophils % 70.6 Lymphocytes % 18.7 Monocytes % 8.4 Eosinophils % 0.7 Basophils % 0.5 Nucleated RBC % 0.0 Absolute Neutrophils 8.06 H Absolute Lymphocytes 2.14 Absolute Monocytes 0.96 H Absolute Eosinophils 0.08 Absolute Basophils 0.06 Sodium 133 L Potassium 3.6 Chloride 98 Carbon Dioxide 26.2 Anion Gap 8.8 BUN 28 H Creatinine 1.2 H Est GFR (CKD-EPI 2020) 46.91 Glucose 143 H Calcium 8.8 Magnesium 1.5 L Time Spent with Patient Time Spent with Patient: 35-49 minutes Time was spent: preparing to see the patient(eg.review tests), ordering medications,tests, procedures, referring, communicating with other health patient care secretary, indepentently interpreting results and counseling the patient
[2022-08-23 20:03] VITALS: BP 144/74; PULSE 95; RESP 18; TEMP 36.6; O2SAT 95
[2022-08-23] MEDS: POTASSIUM CHLORIDE/D5-0.45NACL 1,000 ML 125 MEQ IV (20:54)
[2022-08-23 20:55] VITALS: O2SAT 95
[2022-08-23] MEDS: Lidocaine Patch Removal 1 EACH TD (20:55)
[2022-08-23] MEDS: Gabapentin 600 MG TAB PO (21:51)
[2022-08-23] MEDS: Amitriptyline 50 MG TAB 100 MG PO (21:51)
[2022-08-23] MEDS: Melatonin 3 MG TAB PO (21:52)
--- NOTE | 2022-08-24 | DI.RAD_ITS ---
Exam(s) RF SMALL BOWEL SERIES EXAM: RF SMALL BOWEL SERIES CLINICAL HISTORY: post-operative bowel obstruction TECHNIQUE: 2D and realtime digital imaging was performed. CONTRAST MATERIAL: Gastrografin contrast was administered. COMPARISON: CR XR ABDOMEN FLAT PLATE from 08/22/2022 FINDINGS: The tip of the enteric tube is seen in the stomach. Oral contrast was administered. 3 hour delayed images were obtained which show the oral contrast has not progressed beyond the proximal small bowel. There is moderate dilatation of the duodenum. The contrast does not advanced into the colon. IMPRESSION: 1. Findings suggestive of a obstruction in the mid to proximal small bowel. 2. Findings were discussed with Dr. Mehta at 12:15 p.m. on 08/24/2022. RADIATION DOSE DELIVERED:
--- NOTE | 2022-08-24 | DI.CT_ITS ---
Exam(s) CT ABDOMEN PELVIS WO EXAM: CT ABDOMEN PELVIS WO CLINICAL HISTORY: bowel obstruction. TECHNIQUE: Imaging Protocol: Axial computed tomography images with coronal and sagittal reformatted images were created and reviewed. COMPARISON: CT CT ABDOMEN PELVIS W from 08/09/2022 FINDINGS: Examination was performed following a small-bowel follow-through. ABDOMEN: Lung Bases: There is an orogastric tube with the tip in the stomach. Calcified granuloma are seen in the lung bases. Liver: Normal density. There is a stable hepatic cyst. Gallbladder and biliary tract: No radiodense calculus or biliary ductal dilation. Pancreas: Normal density, no abnormal calcifications or inflammatory process. Spleen: Normal. Kidneys: Normal size, contour and axis.No radiodense stones or obstructive uropathy. No masses seen. Note is made of a retroaortic left renal vein. Adrenal glands: Stable bilateral adrenal nodules are present. Lymph nodes: Within normal limits. Abdominal Aorta: Abdominal portion non-dilated. Atherosclerosis is present. PELVIS: Bladder:Symmetric distention, no gross wall thickening. Bowel: The oral contrast has advanced into the colon with the leading edge in the proximal transverse colon. There is diverticulosis seen in the sigmoid colon but no evidence of acute diverticulitis. Proximal anastomotic clips are seen in the small bowel loops in the left upper quadrant. The small b owel proximal to the clips is dilated with marked dilatation of the duodenum and proximal jejunum. T he small bowel distally is of normal caliber. The colon is of normal caliber. No evidence of append icitis. Peritoneal cavity: No ascites, collection or mesenteric inflammatory response. No free air. Reproductive organs: Status post hysterectomy. Bones: Within normal limits. Soft Tissues: Within normal limits. IMPRESSION: 1. Oral contrast administered has passed into the colon. No evidence of a bowel obstruction. 2. Persistent marked dilatation of the proximal duodenum with moderate dilatation of the proximal jej unum. 3. No evidence of contrast extravasation. 4. Findings were discussed with Dr. Mehta at 2:30 p.m. on 08/24/2022. RADIATION DOSE DELIVERED: 837.35mGy.cm Total DLP DATA REPOSITORY: All CT scans at this facility are submitted to the National Radiology Data Registry (NRDR) Dose Index Registry (DIR) with the [employer] (ACR). RADIATION OPTIMIZATION: All CT scans at this facility use at least one of these dose optimization te chniques: automated exposure control; mA and/or kV adjustment per patient size (includes targeted exa ms where dose is matched to clinical indication); or iterative reconstruction.
[2022-08-24] MEDS: POTASSIUM CHLORIDE/D5-0.45NACL 1,000 ML 125 MEQ IV ×2 (05:09→18:02)
[2022-08-24] MEDS: ACETAMINOPHEN 1,000 MG/100 ML BTL 400 MG IVPB ×3 (05:31→22:29)
[2022-08-24] MEDS: Heparin 5,000 UNITS/ML VIAL 5000 UNITS SC ×3 (05:32→22:31)
[2022-08-24 07:36] VITALS: BP 117/69; PULSE 76; RESP 18; TEMP 36.6; O2SAT 97
--- NOTE | 2022-08-24 08:25 | PGE_ITS ---
Date of Service Date of service: 08/24/22 Time of Service: 08:26 Assessment and Plan Assessment and plan (1) Small bowel obstruction: Status: Acute Assessment and plan: 76yo female with persistent obstructive/ileus symptoms s/p ex lap, bowel resection for SBO. --UGI with small bowel through pending --avoid narcotics --maintain NGT --IVF replacements of NGT output --OOB and ambulate --dasily labs --GI/DVT prophylaxis Pt seen and examined with Dr. Mehta (2) Hypoalbuminemia due to protein-calorie malnutrition: Status: Acute Assessment and plan: --restart TPN (3) Postoperative paralytic ileus: Status: Acute Subjective Subjective Interval history since last seen: Pt is feeling okay this morning. She denies any pain or nausea. She has passed a little flatus but no bowel movements. She has been ambulating minimally. Voiding without difficulty. Exam Const General: cooperative, comfortable and no acute distress Orientation: alert, awake and oriented x3 Resp Effort & Inspection: normal respiratory effort and able to speak in complete sentences Auscultation: clear to auscultation bilaterally Cardio Rate: regular rate Rhythm: regular rhythm GI Inspection: incision (midline incision healing well; no cellulitis) Palpation: soft, not firm, no guarding and tender in the LUQ Percussion: normal to percussion Auscultation: normal bowel sounds Neuro General: patient alert, patient awake, patient oriented x3 and moves all extremities Cognition: normal cognition Psych Appearance: grossly normal Mental Status: mental status grossly normal Mood: congruent mood Affect: normal affect Attitude: cooperative Insight: insight good Judgment: judgment good Objective Last Vital Signs Temp 97.9 F 08/24/22 07:36 Pulse 76 08/24/22 07:36 Resp 18 08/24/22 07:36 BP 117/69 08/24/22 07:36 Pulse Ox 97 08/24/22 07:36 Laboratory Results - last 24 hr 08/23/22 08/23/22 05:40 05:40 WBC 11.43 H RBC 3.19 L Hgb 9.8 L Hct 30.2 L MCV 95 MCH 30.7 MCHC 32.5 RDW 14.1 Plt Count 551 H MPV 9.9 Immature Gran % 1.1 Neutrophils % 70.6 Lymphocytes % 18.7 Monocytes % 8.4 Eosinophils % 0.7 Basophils % 0.5 Nucleated RBC % 0.0 Absolute Neutrophils 8.06 H Absolute Lymphocytes 2.14 Absolute Monocytes 0.96 H Absolute Eosinophils 0.08 Absolute Basophils 0.06 Sodium 133 L Potassium 3.6 Chloride 98 Carbon Dioxide 26.2 Anion Gap 8.8 BUN 28 H Creatinine 1.2 H Est GFR (CKD-EPI 2020) 46.91 Glucose 143 H Calcium 8.8 Magnesium 1.5 L Objective Narrative Objective Narrative: NGT:3550/24 hours Time Spent with Patient Time Spent with Patient: <25 minutes Time was spent: preparing to see the patient(eg.review tests), obtaining and/or reviewing separately otained hiistory, referring, communicating with other health day care teacher, indepentently interpreting results and counseling the patient
--- NOTE | 2022-08-24 09:15 | PDOC.CMPRO ---
- If Service Date Differs Date of service: 08/24/22 Time of Service: 09:15 Care Management Progress Note S/O: Jolanta was lying in bed on her side when CM met with her. She is awake, alert, tearful and appears very sad. This press writer pulls up a chair and Jolanta readily engages in conversation. Per pt, she doesn't know why she keeps getting bowel obstructions, but knows it can't be good. She went to the OR this morning and is waiting to go back down later today. Per pt, her father of the same thing and he had cancer. She is unable to remember the details of his cancer. Jolanta shares that she thinks she has cancer and nobody is telling her. CM provided reassurance. 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 Jolanta talks about her becoming a mother and having a daughter named Cristy, however the two parted ways after Cristy got . Jolanta is not motivated reconnect. Jolanta shares that she wants to be home, she loves her little apartment at the [facility], where she has a few friends and a smoking bryan. Currently Jolanta feels if she were to discharge home she would get better on her own and everything would return to normal, but also clearly understands that she is not medically ready for discharge and agrees to stay. Following this conversation, this press writer feels that Jolanta may benefit from a Palliative consult to discuss her goals of care, CM notified Surgical and RN coordinator. CM continues to support patient and discharge planning considerations. A: 76 year old female admitted to [facility] 08/03/22 for SBO P: Anticipate, Jolanta will discharge home via RCT W/C van with resumption of [facility] RN/PT/ARMAMENT INSTALLER. Janeth Walker from [facility] is coordinating home services. In addition, SHAJI spoke with Public Address System Operator at [facility] for coordination of additional support upon discharge. [facility] RN may be available to support as well, per [facility] recessing machine operator. CM continues to follow.
[2022-08-24] MEDS: Gastrografin 120 ML BTL 55 ML PO (09:39)
--- NOTE | 2022-08-24 10:51 | W.NUTRFU ---
Date of service: 08/24/22 Time of Service: 10:51 Nutrition Note NOTE: Ms. Costa is NPO since 08/22/22. Today she has restarted TPN. Will monitor her weight and nutritional status. Will adjust nutrition care plan as need. Please weigh Ms. Costa daily or at least three times per week to help us get a full picture of her nutritional status. She has not been weighed since 08/10/22. Thank you. Time Spent in Nutritional Counseling and Treatment: 0
[2022-08-24 11:08] VITALS: BP 112/69; PULSE 87; RESP 20; TEMP 36.8; O2SAT 97
[2022-08-24 11:21] LABS: Abs Immature Grans 0.08 10^3/uL (0.0-0.06); Absolute Basophil Count 0.05 10^3/uL (0.0-0.2); Absolute Eosinophil Count 0.16 10^3/uL (0.0-0.7); Absolute Lymphocyte Count 2.04 10^3/uL (1.2-3.4); Absolute Neutrophil Count 7.34 10^3/uL (1.2-6.7); Basophils % 0.5; Eosinophils % 1.5; HCT 32.7 % (36.0-46.0); HGB 10.7 g/dL (11.2-15.7); Immature Grans % 0.8; Lymphocytes % 19.5; MCH 30.4 pg (27.0-33.0); MCHC 32.7 % (32.0-36.0); MCV 93 fL (80-95); MPV 8.9 fL (8.0-11.0); Monocytes % 7.6; Neutrophils % 70.1; Platelet Count 538 10^3/uL (130-400); RBC 3.52 10^6/uL (3.93-5.22); RDW 14.2 % (11.7-14.6); RDW-SD 47.6 fL; WBC 10.47 10^3/uL (4.4-10.8)
[2022-08-24] MEDS: Normal Saline Flush 10 ML SYR IVP (11:30)
[2022-08-24] MEDS: Pantoprazole 40 MG VIAL IVP ×2 (11:30→21:12)
[2022-08-24] MEDS: Ondansetron 4 MG/2 ML VIAL IVP (11:30)
[2022-08-24] MEDS: Lidocaine 5% Patch 1 PATCH TP (11:31)
[2022-08-24 11:33] LABS: INR 0.9 (0.9-1.1); Prothrombin Time 9.5 sec (9.3-11.0)
[2022-08-24 11:35] LABS: PHOSPHORUS 3.9 mg/dL (2.6-4.7)
[2022-08-24 11:44] LABS: ALT 25 U/L (14-59); AST 12 U/L (15-37); Albumin 3.1 g/dL (3.4-5.0); Alkaline Phosphatase 191 U/L (46-116); Anion Gap 10.8 mmol/L (3-11); BUN 22 mg/dL (7-18); Bilirubin, Total 0.4 mg/dL (0.2-1.0); CO2 25.2 mmol/L (21.0-32.0); CREATININE 1.1 mg/dL (0.55-1.02); Calcium 9.5 mg/dL (8.5-10.1); Chloride 99 mmol/L (98-107); Estimated GFR 52.08 (mL/min/1.73m2); Glucose 148 mg/dL (74-106); Potassium 3.5 mmol/L (3.5-5.1); Sodium 135 mmol/L (136-145); Total Protein 7.6 g/dL (6.4-8.2)
[2022-08-24] MEDS: Protein Nutritional Supplement 16 GM 1 OUNCE PACKET PO ×2 (12:42→21:12)
[2022-08-24] MEDS: Insulin Aspart 300 UNITS/3 ML PEN SC ×2 (12:42→17:47)
[2022-08-24] MEDS: QUEtiapine 25 MG TAB PO ×2 (12:43→21:12)
[2022-08-24] MEDS: Nystatin 500000 UNITS/5 ML SUSP 5ML CUP PO ×2 (12:43→21:12)
[2022-08-24] MEDS: Gabapentin 300 MG CAP PO (12:43)
[2022-08-24] MEDS: DULoxetine 30 MG CAP PO (12:43)
[2022-08-24] MEDS: Simethicone 80 MG CHEW 40 MG PO ×2 (12:50→17:47)
[2022-08-24 15:30] VITALS: BP 119/58; PULSE 99; RESP 16; TEMP 36.8; O2SAT 98
--- NOTE | 2022-08-24 16:23 | PGE_ITS ---
Date of Service Date of service: 08/24/22 Time of Service: 16:23 Assessment and Plan Assessment and plan (1) Small bowel obstruction: Status: Acute Assessment and plan: I talked to Jolanta for a long time about the images obtained during the small bowel follow-through, as well as the CAT scan performed thereafter. Very briefly, in simple terms, I explained that contrast transit out of the stomach, duodenum, and proximal small intestine quite slowly. It does appear to cross the new anastomosis, and transverse through the distal small bowel (which is also a bit dilated) before moving into the ascending and transverse colon. Largely, this seems more like a functional problem rather than a mechanical obstruction. Unfortunately, Gloria has not made much improvement. I explained that there are not many medications to help promote GI motility, but we can certainly try some erythromycin, Bentyl, and milk of magnesia. She is quite depressed about her length of stay, and she is eager to get out of the hospital. I explained the challenges associated with her delayed gastric emptying, and limited options in terms of providing symptomatic relief. Obviously, she has to be able to meet nutritional requirements without a significant amount of abdominal discomfort or nausea before she can leave the hospital. Hopefully, we can try to meet his nutritional requirements with just a liquid diet at this point, so long as we can ensure that her stomach remains appropriately emptied. 1 other possibility would be insertion of percutaneous endoscopic gastrostomy tube to serve as a relief valve for gastric distention should it occur. She is not really interested in that at this point. Subjective Subjective Interval history since last seen: She feels very tired after the small bowel follow-through. She denies pain. Objective Last Vital Signs Temp 98.2 F 08/24/22 11:08 Pulse 87 08/24/22 11:08 Resp 20 08/24/22 11:08 BP 112/69 08/24/22 11:08 Pulse Ox 97 08/24/22 11:08 Laboratory Results - last 24 hr 08/24/22 08/24/22 08/24/22 11:15 11:15 11:15 WBC 10.47 RBC 3.52 L Hgb 10.7 L Hct 32.7 L MCV 93 MCH 30.4 MCHC 32.7 RDW 14.2 Plt Count 538 H MPV 8.9 Immature Gran % 0.8 Neutrophils % 70.1 Lymphocytes % 19.5 Monocytes % 7.6 Eosinophils % 1.5 Basophils % 0.5 Nucleated RBC % 0.0 Absolute Neutrophils 7.34 H Absolute Lymphocytes 2.04 Absolute Monocytes 0.80 Absolute Eosinophils 0.16 Absolute Basophils 0.05 PT INR Sodium 135 L Potassium 3.5 Chloride 99 Carbon Dioxide 25.2 Anion Gap 10.8 BUN 22 H Creatinine 1.1 H Est GFR (CKD-EPI 2020) 52.08 Glucose 148 H Calcium 9.5 Phosphorus 3.9 Magnesium 2.0 Total Bilirubin 0.4 AST 12 L ALT 25 Alkaline Phosphatase 191 H Total Protein 7.6 Albumin 3.1 L 08/24/22 11:15 WBC RBC Hgb Hct MCV MCH MCHC RDW Plt Count MPV Immature Gran % Neutrophils % Lymphocytes % Monocytes % Eosinophils % Basophils % Nucleated RBC % Absolute Neutrophils Absolute Lymphocytes Absolute Monocytes Absolute Eosinophils Absolute Basophils PT 9.5 INR 0.9 Sodium Potassium Chloride Carbon Dioxide Anion Gap BUN Creatinine Est GFR (CKD-EPI 2020) Glucose Calcium Phosphorus Magnesium Total Bilirubin AST ALT Alkaline Phosphatase Total Protein Albumin Time Spent with Patient Time Spent with Patient: >50 minutes Time was spent: preparing to see the patient(eg.review tests), ordering medications,tests, procedures, referring, communicating with other health childcare provider, indepentently interpreting results and counseling the patient
[2022-08-24] MEDS: LORazepam 0.5 MG TAB PO (18:58)
[2022-08-24] MEDS: Melatonin 3 MG TAB 6 MG PO (18:59)
[2022-08-24] MEDS: Amitriptyline 50 MG TAB 100 MG PO (21:10)
[2022-08-24] MEDS: Lidocaine Patch Removal 1 EACH TD (21:12)
[2022-08-24] MEDS: MORPHine 2 MG/ML SYR IVP (23:25)
[2022-08-24 23:42] VITALS: BP 102/55; PULSE 83; RESP 18; TEMP 36.4; O2SAT 94
[2022-08-25] MEDS: Insulin Aspart 300 UNITS/3 ML PEN SC ×2 (01:02→12:13)
[2022-08-25] MEDS: ACETAMINOPHEN 1,000 MG/100 ML BTL 400 MG IVPB ×3 (06:04→21:42)
[2022-08-25] MEDS: Heparin 5,000 UNITS/ML VIAL 5000 UNITS SC ×3 (06:04→21:43)
[2022-08-25 06:18] LABS: HCT 28.9 % (36.0-46.0); HGB 9.4 g/dL (11.2-15.7); MCH 30.9 pg (27.0-33.0); MCHC 32.5 % (32.0-36.0); MCV 95 fL (80-95); MPV 9.5 fL (8.0-11.0); Platelet Count 430 10^3/uL (130-400); RBC 3.04 10^6/uL (3.93-5.22); RDW 14.1 % (11.7-14.6); RDW-SD 48.8 fL; WBC 9.41 10^3/uL (4.4-10.8)
[2022-08-25 06:45] LABS: Anion Gap 7.8 mmol/L (3-11); BUN 22 mg/dL (7-18); CO2 27.2 mmol/L (21.0-32.0); CREATININE 1.1 mg/dL (0.55-1.02); Chloride 100 mmol/L (98-107); Estimated GFR 52.08 (mL/min/1.73m2); Glucose 115 mg/dL (74-106); Potassium 3.6 mmol/L (3.5-5.1); Sodium 135 mmol/L (136-145)
[2022-08-25 07:41] VITALS: BP 114/48; PULSE 78; RESP 18; TEMP 36.3; O2SAT 95
[2022-08-25] MEDS: Lidocaine 5% Patch 1 PATCH TP (09:11)
[2022-08-25] MEDS: Pantoprazole 40 MG VIAL IVP ×2 (09:12→19:52)
[2022-08-25] MEDS: DULoxetine 30 MG CAP PO (09:12)
[2022-08-25] MEDS: POTASSIUM CHLORIDE/D5-0.45NACL 1,000 ML 125 MEQ IV (09:12)
[2022-08-25] MEDS: Nystatin 500000 UNITS/5 ML SUSP 5ML CUP PO ×3 (09:12→20:04)
[2022-08-25] MEDS: Protein Nutritional Supplement 16 GM 1 OUNCE PACKET PO ×3 (09:12→20:04)
[2022-08-25] MEDS: Normal Saline Flush 10 ML SYR IVP ×3 (09:12→21:45)
[2022-08-25] MEDS: Simethicone 80 MG CHEW 40 MG PO ×4 (09:12→21:44)
[2022-08-25] MEDS: QUEtiapine 25 MG TAB PO ×2 (09:12→20:05)
--- NOTE | 2022-08-25 11:02 | PT.INTREAT ---
PT Notes Visit Reasons: Small Bowel Obstruction 08/25/2022 Precaution: Fall, standard, activity as tolerated Subjective: Pt still very reluctant to participate with therapy requiring max verbal cue for motivating pt to participate, pt eventually agreed and was able to gait train after multiple delays and redirection. OBJECTIVE: ? Supine-sit: Supervision? Sit-supine: Supervision ? Sit-stand: Supervision? Stand-sit: Supervision? GAIT? Assistive Device: IV post since pt was attached to IV line? Weight bearing: Full Assist: supervision ? Distance:?200'? Deviation: decreased harmeet speed, decreased step length, decreased step height.? ASSESSMENT:? Pt able to pass by the weighing scale and was able to go on and off to take her weight while pt was gait training. pt did not want to perform anything else after getting setup and repositioned in bed. PLAN: Continue with global strengthening and general conditioning for improved mobility and activity tolerance. TREATMENT CODE/TIME:? 30mins pm, 33910 (9:45-10:15am)
[2022-08-25 15:14] VITALS: BP 134/74; PULSE 88; RESP 17; TEMP 37; O2SAT 98
[2022-08-25] MEDS: MORPHine 2 MG/ML SYR IVP (15:24)
--- NOTE | 2022-08-25 17:45 | W.PM.PROGNOT ---
Date of Service Date of service: 08/25/22 Time of Service: 13:57 Assessment and Plan Assessment and plan (1) Small bowel obstruction: Status: Acute Assessment and plan: 76yo female with persistent obstructive/ileus symptoms s/p ex lap, bowel resection for SBO. --clear liquid diet, will advance as tolerated --avoid narcotics --maintain NGT clamping, as tolerated --OOB and ambulate --daily labs --GI/DVT prophylaxis Pt seen and examined with Dr. Mehta (2) Hypoalbuminemia due to protein-calorie malnutrition: Status: Acute Assessment and plan: --TPN running (3) Postoperative paralytic ileus: Status: Acute Assessment and plan: --erythromycin --Milk of Magnesia --simethicone - Subjective Subjective Interval history since last seen: Jolanta feels okay and denies pain, but is expressing that she is depressed and wants to go home. She states she did pass some stool yesterday evening after receiving contrast for imaging. +Ambulating. Voiding well. Denies nausea with NGT clamped. Exam Const General: cooperative, comfortable and no acute distress Orientation: alert, awake and oriented x3 Resp Effort & Inspection: normal respiratory effort and able to speak in complete sentences Auscultation: clear to auscultation bilaterally Cardio Rate: regular rate Rhythm: regular rhythm GI Inspection: incision (midline incision healing well; no cellulitis) Palpation: soft, not firm, no guarding and tender in the LUQ Percussion: normal to percussion Auscultation: normal bowel sounds Neuro General: patient alert, patient awake, patient oriented x3 and moves all extremities Cognition: normal cognition Psych Appearance: grossly normal Mental Status: mental status grossly normal and other (depressed) Mood: other (depressed) Affect: normal affect Attitude: cooperative Insight: insight good Judgment: judgment good Objective Last Vital Signs Temp 98.6 F 08/25/22 15:14 Pulse 88 08/25/22 15:14 Resp 17 08/25/22 15:14 BP 134/74 08/25/22 15:14 Pulse Ox 98 08/25/22 15:14 Laboratory Results - last 24 hr 08/25/22 08/25/22 05:42 05:42 WBC 9.41 RBC 3.04 L Hgb 9.4 L Hct 28.9 L MCV 95 MCH 30.9 MCHC 32.5 RDW 14.1 Plt Count 430 H MPV 9.5 Sodium 135 L Potassium 3.6 Chloride 100 Carbon Dioxide 27.2 Anion Gap 7.8 BUN 22 H Creatinine 1.1 H Est GFR (CKD-EPI 2020) 52.08 Glucose 115 H Calcium 9.0 Time Spent with Patient Time Spent with Patient: <25 minutes Time was spent: preparing to see the patient(eg.review tests), ordering medications,tests, procedures, indepentently interpreting results and counseling the patient
[2022-08-25] MEDS: LORazepam 0.5 MG TAB PO (20:05)
[2022-08-25] MEDS: Lidocaine Patch Removal 1 EACH TD (20:24)
[2022-08-25] MEDS: Amitriptyline 50 MG TAB 100 MG PO (21:44)
[2022-08-25] MEDS: Melatonin 3 MG TAB 6 MG PO (21:44)
[2022-08-25 23:23] VITALS: BP 146/53; PULSE 78; RESP 18; TEMP 36.9; O2SAT 98
--- NOTE | 2022-08-26 | DI.RAD_ITS ---
Exam(s) XR ABDOMEN FLAT PLATE EXAM: 2D digital imaging was performed. CLINICAL HISTORY: eval ileus/SBO. COMPARISON: CR XR ABDOMEN FLAT PLATE from 08/22/[address] ABDOMEN PELVIS WO from 08/24/2022 TECHNIQUE: Supine views of the abdomen performed. Three views were obtained. FINDINGS: BOWEL GAS PATTERN: The oral contrast has advanced and is now located within the colon and rectum. Th ere is an orogastric tube in place. The bowel gas pattern is nonspecific. There may be an ileus pre sent. The passes of the oral contrast suggest no evidence of a complete obstruction. CALCIFICATIONS: No radiopaque calcifications. OSSEOUS STRUCTURES: Normal for age. OTHER FINDINGS: None. DATA REPOSITORY: RADIATION DOSE DELIVERED:
[2022-08-26] MEDS: Insulin Aspart 300 UNITS/3 ML PEN SC ×4 (00:17→17:50)
[2022-08-26] MEDS: ACETAMINOPHEN 1,000 MG/100 ML BTL 400 MG IVPB ×2 (05:25→14:48)
[2022-08-26] MEDS: Normal Saline Flush 10 ML SYR IVP ×3 (05:25→22:10)
[2022-08-26] MEDS: Heparin 5,000 UNITS/ML VIAL 5000 UNITS SC ×3 (05:31→22:10)
[2022-08-26 06:49] LABS: HCT 28.4 % (36.0-46.0); MCH 30.2 pg (27.0-33.0); MCHC 31.7 % (32.0-36.0); MCV 95 fL (80-95); MPV 9.2 fL (8.0-11.0); Platelet Count 442 10^3/uL (130-400); RBC 2.98 10^6/uL (3.93-5.22); RDW 13.9 % (11.7-14.6); WBC 9.37 10^3/uL (4.4-10.8)
[2022-08-26 06:57] LABS: Anion Gap 9.1 mmol/L (3-11); BUN 28 mg/dL (7-18); CO2 25.9 mmol/L (21.0-32.0); CREATININE 1.1 mg/dL (0.55-1.02); Calcium 9.2 mg/dL (8.5-10.1); Chloride 97 mmol/L (98-107); Estimated GFR 52.08 (mL/min/1.73m2); Glucose 164 mg/dL (74-106); Potassium 3.8 mmol/L (3.5-5.1); Sodium 132 mmol/L (136-145)
[2022-08-26 07:51] VITALS: BP 123/73; PULSE 80; RESP 20; TEMP 36.5; O2SAT 97
--- NOTE | 2022-08-26 08:19 | PT.INNT ---
PT Notes Visit Reasons: Small Bowel Obstruction pt approached multiple time during the course of the morning with pt refusing all attempts to engage pt. pt very upset, reports she would like to go home, doesn't want to interact with this therapist.
[2022-08-26] MEDS: Nystatin 500000 UNITS/5 ML SUSP 5ML CUP PO ×3 (08:49→22:20)
[2022-08-26] MEDS: Simethicone 80 MG CHEW 40 MG PO ×3 (08:49→22:21)
[2022-08-26] MEDS: Pantoprazole 40 MG VIAL IVP ×2 (08:49→22:09)
[2022-08-26] MEDS: QUEtiapine 25 MG TAB PO ×2 (08:50→22:21)
[2022-08-26] MEDS: DULoxetine 30 MG CAP PO (08:50)
[2022-08-26] MEDS: Lidocaine 5% Patch 1 PATCH TP (08:50)
--- NOTE | 2022-08-26 09:09 | PGE_ITS ---
Date of Service Date of service: 08/26/22 Time of Service: 09:09 Assessment and Plan Assessment and plan (1) Small bowel obstruction: Status: Acute Assessment and plan: 76yo female with persistent obstructive/ileus symptoms s/p ex lap, bowel resection for SBO. --will obtain AXR as pt appears slightly more distended with NGT clamped --clear liquid diet, will advance as tolerated --avoid narcotics --maintain NGT clamping, as tolerated --OOB and ambulate --daily labs --GI/DVT prophylaxis (2) Hypoalbuminemia due to protein-calorie malnutrition: Status: Acute Assessment and plan: --TPN running (3) Postoperative paralytic ileus: Status: Acute Assessment and plan: --erythromycin --Milk of Magnesia --simethicone --Dulcolax suppository Subjective Subjective Interval history since last seen: Jolanta is in a brighter mood this morning, but is still anxious to go home. Nursing reports that her NGT has been clamped since 8pm last night, and she denies nausea. She has taken in very little of her clear liquid tray this morning. She admits to a little bit of flatus but no bowel movement. Voiding without difficulty. She refused to walk with PT this morning. Encouragement was provided to get OOB and walk. Exam Const General: cooperative and no acute distress Orientation: alert, awake and oriented x3 [facility] General nose exam: other (NGT in right nare, clamped) Resp Effort & Inspection: normal respiratory effort and able to speak in complete sentences Auscultation: clear to auscultation bilaterally Cardio Rate: regular rate Rhythm: regular rhythm Heart Sounds: S1 normal and S2 normal GI Inspection: distended, incision (healing well, no signs of infection) and ob esity Palpation: soft, not firm, no guarding and tender (mildily tender, mostly catalina- incisional) Auscultation: hypoactive bowel sounds Neuro General: patient alert, patient awake and patient oriented x3 Cognition: normal cognition Speech: speech normal Extrem General: no clubbing, cyanosis or edema and no calf tenderness Psych Mental Status: mental status grossly normal Speech and Movement: speech and movement normal Mood: congruent mood Thought Process: normal Insight: insight good Objective Last Vital Signs Temp 97.7 F 08/26/22 07:51 Pulse 80 08/26/22 07:51 Resp 20 08/26/22 07:51 BP 123/73 08/26/22 07:51 Pulse Ox 97 08/26/22 07:51 Laboratory Results - last 24 hr 08/26/22 08/26/22 06:05 06:05 WBC 9.37 RBC 2.98 L Hgb 9.0 L Hct 28.4 L MCV 95 MCH 30.2 MCHC 31.7 L RDW 13.9 Plt Count 442 H MPV 9.2 Sodium 132 L Potassium 3.8 Chloride 97 L Carbon Dioxide 25.9 Anion Gap 9.1 BUN 28 H Creatinine 1.1 H Est GFR (CKD-EPI 2020) 52.08 Glucose 164 H Calcium 9.2 Time Spent with Patient Time Spent with Patient: <25 minutes Time was spent: preparing to see the patient(eg.review tests), ordering medications,tests, procedures, referring, communicating with other health career guidance technician, indepentently interpreting results and counseling the patient
--- NOTE | 2022-08-26 10:59 | DI.VRAD_ITS ---
PROCEDURE INFORMATION: Exam: XR Abdomen Exam date and time: 08/26/2022 10:25 AM Age: 76 years old Clinical indication: Condition or disease; Other: Sbo TECHNIQUE: Imaging protocol: Radiologic exam of the abdomen. Views: Frontal supine view of the abdomen. 1 View. COMPARISON: CT ABDOMEN PELVIS WO 08/24/2022 1:53 PM FINDINGS: Tubes, catheters and devices: An enteric feeding tube is present, with its tip located in the stomach in good position. Gastrointestinal tract: Multiple loops of dilated bowel may represent obstruction or ileus. Bones/joints: Unremarkable. IMPRESSION: 1. Multiple loops of dilated bowel may represent obstruction or ileus. 2. An enteric feeding tube is present, with its tip located in the stomach in good position. Dictated and Authenticated by: Marcelo Lopez MD. Ordering:GIANNA Burns MD
[2022-08-26] MEDS: LORazepam 0.5 MG TAB PO ×2 (14:05→22:21)
[2022-08-26 15:44] VITALS: BP 117/68; PULSE 84; RESP 16; TEMP 36.9; O2SAT 93
[2022-08-26] MEDS: Protein Nutritional Supplement 16 GM 1 OUNCE PACKET PO (22:06)
[2022-08-26] MEDS: Melatonin 3 MG TAB 6 MG PO (22:20)
[2022-08-26] MEDS: Amitriptyline 50 MG TAB 100 MG PO (22:20)
[2022-08-26] MEDS: Lidocaine Patch Removal 1 EACH TD (22:25)
[2022-08-26 23:00] VITALS: BP 133/68; PULSE 85; RESP 18; TEMP 36.6; O2SAT 98
[2022-08-27] MEDS: Insulin Aspart 300 UNITS/3 ML PEN SC ×4 (00:43→19:47)
[2022-08-27] MEDS: ACETAMINOPHEN 1,000 MG/100 ML BTL 400 MG IVPB ×3 (00:55→20:01)
[2022-08-27] MEDS: Normal Saline Flush 10 ML SYR IVP ×4 (00:57→20:02)
[2022-08-27] MEDS: Heparin 5,000 UNITS/ML VIAL 5000 UNITS SC ×3 (05:11→21:15)
[2022-08-27 06:24] LABS: HGB 9.3 g/dL (11.2-15.7); MCH 30.1 pg (27.0-33.0); MCHC 32.1 % (32.0-36.0); MCV 94 fL (80-95); MPV 9.2 fL (8.0-11.0); Platelet Count 401 10^3/uL (130-400); RBC 3.09 10^6/uL (3.93-5.22); RDW-SD 47.1 fL; WBC 8.81 10^3/uL (4.4-10.8)
[2022-08-27 06:36] LABS: Anion Gap 9.9 mmol/L (3-11); BUN 29 mg/dL (7-18); CO2 24.1 mmol/L (21.0-32.0); CREATININE 0.9 mg/dL (0.55-1.02); Calcium 9.3 mg/dL (8.5-10.1); Chloride 99 mmol/L (98-107); Estimated GFR 66.26 (mL/min/1.73m2); Glucose 163 mg/dL (74-106); Potassium 3.7 mmol/L (3.5-5.1); Sodium 133 mmol/L (136-145)
[2022-08-27] MEDS: Pantoprazole 40 MG VIAL IVP ×2 (08:25→19:48)
[2022-08-27] MEDS: Simethicone 80 MG CHEW 40 MG PO ×4 (08:26→21:12)
[2022-08-27] MEDS: QUEtiapine 25 MG TAB PO ×2 (08:26→19:55)
[2022-08-27] MEDS: Nystatin 500000 UNITS/5 ML SUSP 5ML CUP PO ×3 (08:26→19:55)
[2022-08-27] MEDS: DULoxetine 30 MG CAP PO (08:26)
[2022-08-27] MEDS: Lidocaine 5% Patch 1 PATCH TP (08:27)
[2022-08-27 08:28] VITALS: BP 151/72; PULSE 81; RESP 16; TEMP 36.8; O2SAT 95
--- NOTE | 2022-08-27 09:02 | CMPROGNOTE_ITS ---
- If Service Date Differs Date of service: 08/27/22 Time of Service: 09:02 Care Management Progress Note S/O: Jolanta is lying in bed, on her side, looking out her window when CM met with her. She is awake, alert and able to engage in conversation. Jolanta shares that she is really trying to get better, so she can go home. She reports that she is up and walking every day as instructed and walked the full loop today. CM updated Janeth Walker and she plans on visiting Jolanta this week, which makes Jolanta very happy. A: 76 year old female admitted to [facility] 08/03/22 for SBO P: Anticipate, Jolanta will discharge home via [facility] W/C van with resumption of [facility] RN/PT/MARKETING RECRUITER. Janeth Walker from [facility] is coordinating home services. In addition, SHAJI spoke with Wastewater Treatment Engineer at [facility] for coordination of additional support upon discharge. [facility] RN may be available to support as well, per [facility] shale planer operator. SHAJI continues to follow.
[2022-08-27] MEDS: LORazepam 0.5 MG TAB PO ×2 (11:49→18:30)
[2022-08-27 16:03] VITALS: BP 97/57; PULSE 116; RESP 16; TEMP 37; O2SAT 98
[2022-08-27] MEDS: Protein Nutritional Supplement 16 GM 1 OUNCE PACKET PO (19:55)
[2022-08-27] MEDS: Lidocaine Patch Removal 1 EACH TD (20:08)
[2022-08-27] MEDS: Amitriptyline 50 MG TAB 100 MG PO (21:10)
[2022-08-27] MEDS: Melatonin 3 MG TAB 6 MG PO (21:11)
--- NOTE | 2022-08-27 22:13 | W.PM.PROGNOT ---
Date of Service Date of service: 08/27/22 Time of Service: 22:14 Assessment and Plan Assessment and plan (1) Small bowel obstruction: Status: Acute Assessment and plan: 76yo female with persistent obstructive/ileus symptoms s/p ex lap, bowel resection for SBO. --clear liquid diet, will advance as tolerated --avoid narcotics --will discuss removing NGT with Dr. Mehta --OOB and ambulate --daily labs --GI/DVT prophylaxis (2) Hypoalbuminemia due to protein-calorie malnutrition: Status: Acute Assessment and plan: --TPN running, will consider decreasing rate to promote patient appetite (3) Postoperative paralytic ileus: Status: Acute Assessment and plan: Ileus resolving. --erythromycin --Milk of Magnesia --simethicone --Dulcolax suppository Subjective Subjective Interval history since last seen: Nursing reports patient had multiple bowel movements today, but is still taking little PO intatke. NGT remains clamped. Exam Const General: no acute distress and other (pt found sleeping) Resp Effort & Inspection: normal respiratory effort Objective Last Vital Signs Temp 98.6 F 08/27/22 16:03 Pulse 116 H 08/27/22 16:03 Resp 16 08/27/22 16:03 BP 97/57 L 08/27/22 16:03 Pulse Ox 98 08/27/22 16:03 Laboratory Results - last 24 hr 08/27/22 08/27/22 06:00 06:00 WBC 8.81 RBC 3.09 L Hgb 9.3 L Hct 29.0 L MCV 94 MCH 30.1 MCHC 32.1 RDW 14.0 Plt Count 401 H MPV 9.2 Sodium 133 L Potassium 3.7 Chloride 99 Carbon Dioxide 24.1 Anion Gap 9.9 BUN 29 H Creatinine 0.9 Est GFR (CKD-EPI 2020) 66.26 Glucose 163 H Calcium 9.3 Time Spent with Patient Time Spent with Patient: <25 minutes Time was spent: referring, communicating with other health director of career resources and indepentently interpreting results
[2022-08-27 23:24] VITALS: BP 143/78; PULSE 101; RESP 18; TEMP 37; O2SAT 97
[2022-08-28] MEDS: Insulin Aspart 300 UNITS/3 ML PEN SC ×4 (00:42→18:26)
[2022-08-28] MEDS: Heparin 5,000 UNITS/ML VIAL 5000 UNITS SC ×3 (05:48→21:56)
[2022-08-28 06:34] LABS: HGB 9.3 g/dL (11.2-15.7); MCH 30.9 pg (27.0-33.0); MCHC 33.2 % (32.0-36.0); MCV 93 fL (80-95); MPV 9.1 fL (8.0-11.0); Platelet Count 362 10^3/uL (130-400); RBC 3.01 10^6/uL (3.93-5.22); RDW 14.1 % (11.7-14.6); RDW-SD 47.9 fL; WBC 8.73 10^3/uL (4.4-10.8)
[2022-08-28 06:45] LABS: Magnesium 1.8 mg/dL (1.8-2.4)
[2022-08-28 06:51] LABS: INR 0.9 (0.9-1.1); Prothrombin Time 9.4 sec (9.3-11.0)
[2022-08-28 06:56] LABS: ALT 14 U/L (14-59); AST 10 U/L (15-37); Albumin 2.7 g/dL (3.4-5.0); Alkaline Phosphatase 121 U/L (46-116); Anion Gap 7.3 mmol/L (3-11); BUN 29 mg/dL (7-18); Bilirubin, Total 0.2 mg/dL (0.2-1.0); CO2 24.7 mmol/L (21.0-32.0); Calcium 9.1 mg/dL (8.5-10.1); Chloride 99 mmol/L (98-107); Estimated GFR 58.39 (mL/min/1.73m2); Glucose 180 mg/dL (74-106); PHOSPHORUS 3.2 mg/dL (2.6-4.7); Potassium 3.3 mmol/L (3.5-5.1); Sodium 131 mmol/L (136-145); Total Protein 6.3 g/dL (6.4-8.2)
--- NOTE | 2022-08-28 07:28 | PGE_ITS ---
Date of Service Date of service: 08/28/22 Time of Service: 07:28 Assessment and Plan Assessment and plan (1) Small bowel obstruction: Status: Acute Assessment and plan: 76yo female with persistent obstructive/ileus symptoms s/p ex lap, bowel resection for SBO. --Diet advanced to full liquids --Dr. Mehta to d/c NGT in AM --avoid narcotics --OOB and ambulate --daily labs --GI/DVT prophylaxis (2) Hypoalbuminemia due to protein-calorie malnutrition: Status: Acute Assessment and plan: --TPN will be decreased to 50%, appreciate Nutrition and Pharmacy input (3) Postoperative paralytic ileus: Status: Acute Assessment and plan: Ileus resolving. --erythromycin --Milk of Magnesia --simethicone --Dulcolax suppository Subjective Subjective Interval history since last seen: Arrived with patient resting comfortably in bed, she states denied pain at this time. However stated, she 'doesn't know, because she just woke up. Exam Const General: cooperative, healthy appearing and comfortable Orientation: alert and oriented x3 Resp Effort & Inspection: normal respiratory effort, no audible wheezes and no cough GI Other: NG tube in place and clamped. Abdomen, soft. Slightly distended. Objective Last Vital Signs Temp 37.0 C 08/27/22 23:24 Pulse 101 H 08/27/22 23:24 Resp 18 08/27/22 23:24 BP 143/78 H 08/27/22 23:24 Pulse Ox 97 08/27/22 23:24 Laboratory Results - last 24 hr 08/28/22 08/28/22 08/28/22 06:19 06:19 06:19 WBC 8.73 RBC 3.01 L Hgb 9.3 L Hct 28.0 L MCV 93 MCH 30.9 MCHC 33.2 RDW 14.1 Plt Count 362 MPV 9.1 PT INR Sodium Cancelled 131 L Potassium Cancelled 3.3 L Chloride Cancelled 99 Carbon Dioxide Cancelled 24.7 Anion Gap Cancelled 7.3 BUN Cancelled 29 H Creatinine Cancelled 1.0 Est GFR (CKD-EPI 2020) Cancelled 58.39 Glucose Cancelled 180 H Calcium Cancelled 9.1 Phosphorus 3.2 Magnesium 1.8 Total Bilirubin 0.2 AST 10 L ALT 14 Alkaline Phosphatase 121 H Total Protein 6.3 L Albumin 2.7 L 08/28/22 06:19 WBC RBC Hgb Hct MCV MCH MCHC RDW Plt Count MPV PT 9.4 INR 0.9 Sodium Potassium Chloride Carbon Dioxide Anion Gap BUN Creatinine Est GFR (CKD-EPI 2020) Glucose Calcium Phosphorus Magnesium Total Bilirubin AST ALT Alkaline Phosphatase Total Protein Albumin Time Spent with Patient Time Spent with Patient: <25 minutes Time was spent: preparing to see the patient(eg.review tests) and obtaining and/or reviewing separately [facility]
[2022-08-28 07:29] VITALS: BP 120/66; PULSE 85; RESP 13; TEMP 36.7; O2SAT 95
[2022-08-28] MEDS: Lidocaine 5% Patch 1 PATCH TP (08:15)
[2022-08-28] MEDS: Protein Nutritional Supplement 16 GM 1 OUNCE PACKET PO ×3 (08:15→21:56)
--- NOTE | 2022-08-28 08:15 | CMPROGNOTE_ITS ---
- If Service Date Differs Date of service: 08/28/22 Time of Service: 08:15 Care Management Progress Note S/O: Jolanta was lying in bed when CM met with her. She is awake, alert and able to engage in conversation. Anticipate, Jolanta will discharge home when medically ready per Surgical and is able to tolerate a regular diet. Jolanta was discharged from PT today, due to willingness to participate in therapy. Per PT, Jolanta is able to ambulate and agrees to still ambulate with nursing. A: 76 year old female admitted to [facility] 08/03/22 for SBO P: Anticipate, Jolanta will discharge home via RCT W/C van with resumption of [facility] RN/PT/METAL BENCH PATTERNMAKER. Janeth Walker from [facility] is coordinating home services. In addition, SHAJI spoke with Engineering Illustrator at [facility] for coordination of additional support upon discharge. [facility] RN may be available to support as well, per [facility] crane hoist or lift operator. CM continues to follow.
[2022-08-28] MEDS: Nystatin 500000 UNITS/5 ML SUSP 5ML CUP PO ×3 (08:16→21:57)
[2022-08-28] MEDS: DULoxetine 30 MG CAP PO (08:16)
[2022-08-28] MEDS: QUEtiapine 25 MG TAB PO ×2 (08:16→21:56)
[2022-08-28] MEDS: Pantoprazole 40 MG VIAL IVP ×2 (09:15→21:55)
[2022-08-28] MEDS: Normal Saline Flush 10 ML SYR IVP ×3 (09:15→17:05)
--- NOTE | 2022-08-28 10:03 | W.NUTRFU ---
Date of service: 08/28/22 Time of Service: 10:03 Nutrition Note NOTE: Jolanta with protein calorie malnutrition secondary to persistent ileus and 8 week hospitalization with an 8% weight loss noted in last 8 weeks. Ileus resolving and now able to tolerate clear liquids x 2 days. Estimated Needs:? 1410 kcal (BEE x 1.2), 84 g protein(ABW x 1.2), 2310 ml fluid (30 ml/kg actual). TPN : Clinimix (4.25/10) 2000 ml, 20% lipids 250 ml/day. ? provides total of 1520 kcal, 84 g protein, 55 g fat with standard MVI/trace elements, SS insulin as ordered.? Diet Order: Clear liquids - tolerating small sips since 06/25/23 Currently meeting 100% calorie/protein/fat needs via TPN. Poor appetite expected as with TPN running 04/03. Recommend decreasing TPN rate by 50% to encourage appetite. D/c TPN once able to consume a minimum of 50% of surgical soft diet. Will continue to follow Time Spent in Nutritional Counseling and Treatment: 0
[2022-08-28] MEDS: Simethicone 80 MG CHEW 40 MG PO ×3 (10:08→21:57)
[2022-08-28] MEDS: ACETAMINOPHEN 1,000 MG/100 ML BTL 400 MG IVPB ×2 (14:01→21:44)
[2022-08-28 15:49] VITALS: TEMP 37
[2022-08-28 16:18] VITALS: BP 153/60; PULSE 94; RESP 19; TEMP 37; O2SAT 94
--- NOTE | 2022-08-28 17:50 | INDS_ITS ---
Date of service: 08/28/22 PT Notes Visit Reasons: Small Bowel Obstruction Physical Therapy Inpatient Discharge Summary Date: 08/28/2022 Dates of service: 08/10/2022 through 08/25/2022 This is a clinical summary of care provided for the duration of dates listed above. No charge was made in the completion of this documentation. Referring Doctor:MEGAN Cobb PT Orders: PT CONSULT: Eval/Treat Precautions: Fall. Standard. Activity as tolerated. Patient Profile/Admitting Diagnosis:Mirtha Stover was sent to the ICU for close medical monitoring and is back under med surg level of care as of today, 08/10/2022 per order by MEGAN Healy for continued functional mobility training.? Jolanta is a 76-year-old female who presented to the ED on 08/02/2022 due to sudden onset abdominal distention, diffuse abdominal pain, and nausea. ? Patient is diagnosed with small bowel obstruction and is status post exploratory laparotomy, extensive adhesiolysis, segmental bowel resection, and enteroenterostomy on postoperative day 7.? PMHX: All Active Problems? Type 2 diabetes mellitus with complication, without long-term current use of insulin (Chronic 12/02/17) Hyperlipidemia (Chronic) Vitamin D deficiency (Chronic 08/11/12) Cervical spondylosis (Chronic 02/11/14) Multiple sclerosis (Chronic) secondary progressive HTN (hypertension) (Acute) Vitamin B12 deficiency (Chronic) SHERRELL (generalized anxiety disorder) (Chronic) Depression (Chronic) Chronic low back pain (Acute) Monocular diplopia (Chronic) Mild cognitive impairment (Acute) Walker as ambulation aid (Chronic) uses in her apartment Uses wheelchair (Chronic) when out of her apartment motorized Urinary incontinence, mixed (Acute) uses adult diapers Home fecal incontinence (Acute) Osteoarthritis of carpometacarpal joint of left thumb (Acute) Tobacco dependence due to cigarettes (Acute) Lung nodule, solitary (Acute) 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 Anemia in chronic kidney disease Diverticulosis Migraine headache without aura (01/31/15) Nephrolithiasis while on Topamax Osteoporosis (02/03/14) bone density scan 2013; treated with alendronate x 5 years, discontinued 02/2021 Palliative care patient Had one visit with Palliative care clinic - follow up pending SBO (small bowel obstruction) multiple; last May 2018 Tenosynovitis, de Quervain left sided Surgical History? H/O hemorrhoidectomy History of bowel resection History of cataract surgery History of repair of hiatal hernia paproscopic repair Hx of arthroscopy of right knee Hx of hysterectomy S/P trigger finger release Status post de Quervain's release surgery Status post total right knee replacement Social History/Home Situation: Patient lives alone in an aprtment building with a ramp and steps to enter.? She uses an elevator to reach her apartment.? She receives [facility] daily for assistance with house chores,? laundry and cooking. Equipment Owned/DME: FWW Subjective: NT. See most recent QUALITY ASSURANCE COACH notes. Objective: General Observation: NT. See most recent QUALITY ASSURANCE COACH notes. Mental Status: NT. See most recent QUALITY ASSURANCE COACH notes. Pain: NT. See most recent QUALITY ASSURANCE COACH notes. Vital Signs: NT. See most recent QUALITY ASSURANCE COACH notes. ROM: Right Upper Extremity: ? Shoulder Flexion WFL. Shoulder abduction WFL. Elbow flexion WFL. Wrist flexion WFL. Functional opening and closing of hand WFL. Left Upper Extremity:? Shoulder Flexion WFL. Shoulder abduction WFL. Elbow flexion WFL. Wrist flexion WFL. Functional opening and closing of hand WFL. Right Lower Extremity: Hip flexion WFL. Hip abduction WFL. Knee flexion WFL. Ank le dorsiflexion WFL. Ankle plantarflexion WFL. Left Lower Extremity: Hip flexion WFL. Hip abduction WFL. Knee flexion WFL. Ankle dorsiflexion WFL. Ankle plantarflexion WFL. Strength: Right Upper Extremity: Shoulder flexors 4-/5. Shoulder abductors 4-/5. Elbow flexors 4-/5. Elbow extensors 4-/5. Cuff Cutter strong. Left Upper Extremity: Shoulder flexors 4-/5. Shoulder abductors 4-/5. Elbow flexors 4-/5. Elbow extensors 4-/5. Cuff Cutter strong. Right Lower Extremity: Hip flexors 3+/5. Hip abductors 3+/5. Knee flexors 4-/5. Knee extensors 3+/5. Ankle dorsiflexors 4-/5. Ankle plantarflexors 4-/5. Left Lower Extremity: Hip flexors 3+/5. Hip abductors 3+/5. Knee flexors 4-/5. Knee extensors 3+/5. Ankle dorsiflexors 4-/5. Ankle plantarflexors 4-/5.? S Bed Mobility/Transfers: Supine to sit stand by assist Sit to supine with stand by assist Sit to stand with stand by assist Stand to sit with stand by assist Bed to reclining chair stand by assist Reclining chair to bed stand by assist Gait: Instructed patient with level surface ambulation of 50 feet + 50 feet? requiring stand by assist. Chely decreased. Step height decreased. Step length decreased.? No loss of balance.? No shortness of breath. Balance: Static Sitting: Normal Dynamic Sitting: Normal Static Standing: Good Dynamic Standing: Fair Assessment: Patient has repetitively refused services this past week. Patient is now at highest functional level she would want to be at requiring supervision assist for all long distance ambulation using the FWW. Unwilling to progress beyond her current mobility level. May be independent with all in-room ambulation using the FWW. Goals: Goals X1 week 1. Supine-Sit independent MET 2. Sit-Supine independent MET 3. Sit-Stand independent MET 4. Stand-Sit independent with FWW MET 5. Bed-Chair independent with FWW MET 6. Chair-Bed independent with FWW MET 7. Independent gait on level surface with use of FWW for at least 300 feet without report of pain nor dyspnea NOT MET 8. Good static and dynamic standing balance/tolerance NOT MET DISCHARGE RECOMMENDATIONS: [] ? Home with no services [] [X] ? Home with services.? Patient will benefit from home health PT services in order to progress mobility level using least restrictive assistive ambulatory device, assess home safety, identify additional equipment needs, and establish a functional maintenance program that will increase ability of patient to remain at home. [] ? Home with outpatient PT [] [] ? SNF for continued rehabilitation [] [] ? [facility] [] [] ? SNF versus LTC based on ability to participate and progress [] [X]? Will need FWW for discharge to home to reduce fall risk TREATMENT CODE/TIME: MO Thank you for the opportunity to participate in the care of this patient. Carmen Lawrence PT, DPT, CLT [facility] [place], [place]
[2022-08-28] MEDS: Melatonin 3 MG TAB 6 MG PO (21:56)
[2022-08-28] MEDS: Amitriptyline 50 MG TAB 100 MG PO (21:56)
[2022-08-28 22:05] VITALS: BP 116/60; PULSE 94; RESP 18; TEMP 37.4; O2SAT 94
[2022-08-29] MEDS: Insulin Aspart 300 UNITS/3 ML PEN SC ×3 (01:08→19:06)
[2022-08-29 06:48] LABS: HCT 29.1 % (36.0-46.0); HGB 9.3 g/dL (11.2-15.7); MCH 30.2 pg (27.0-33.0); MCV 95 fL (80-95); MPV 8.9 fL (8.0-11.0); Platelet Count 308 10^3/uL (130-400); RBC 3.08 10^6/uL (3.93-5.22); RDW 14.5 % (11.7-14.6); RDW-SD 49.1 fL; WBC 9.97 10^3/uL (4.4-10.8)
[2022-08-29 06:59] LABS: INR 0.9 (0.9-1.1); Prothrombin Time 9.4 sec (9.3-11.0)
[2022-08-29] MEDS: Heparin 5,000 UNITS/ML VIAL 5000 UNITS SC ×3 (07:09→21:31)
[2022-08-29 07:12] LABS: ALT 12 U/L (14-59); AST 11 U/L (15-37); Albumin 2.7 g/dL (3.4-5.0); Alkaline Phosphatase 115 U/L (46-116); Anion Gap 6.8 mmol/L (3-11); BUN 24 mg/dL (7-18); Bilirubin, Total 0.3 mg/dL (0.2-1.0); CO2 23.2 mmol/L (21.0-32.0); CREATININE 0.9 mg/dL (0.55-1.02); Chloride 100 mmol/L (98-107); Estimated GFR 66.26 (mL/min/1.73m2); Glucose 157 mg/dL (74-106); Magnesium 1.6 mg/dL (1.8-2.4); PHOSPHORUS 3.5 mg/dL (2.6-4.7); Sodium 130 mmol/L (136-145); Total Protein 6.3 g/dL (6.4-8.2)
[2022-08-29 07:17] VITALS: BP 129/75; PULSE 86; RESP 14; TEMP 36.7; O2SAT 95
[2022-08-29] MEDS: Normal Saline Flush 10 ML SYR IVP ×3 (09:10→10:56)
[2022-08-29] MEDS: Nystatin 500000 UNITS/5 ML SUSP 5ML CUP PO ×3 (09:12→21:13)
[2022-08-29] MEDS: ACETAMINOPHEN 1,000 MG/100 ML BTL 400 MG IVPB (09:13)
[2022-08-29] MEDS: DULoxetine 30 MG CAP PO (09:13)
[2022-08-29] MEDS: Lidocaine 5% Patch 1 PATCH TP (09:16)
[2022-08-29] MEDS: QUEtiapine 25 MG TAB PO ×2 (09:16→21:13)
[2022-08-29] MEDS: Simethicone 80 MG CHEW 40 MG PO ×4 (09:17→21:14)
[2022-08-29] MEDS: Protein Nutritional Supplement 16 GM 1 OUNCE PACKET PO ×3 (09:22→22:02)
--- NOTE | 2022-08-29 10:05 | PDOC.CMPRO ---
- If Service Date Differs Date of service: 08/29/22 Time of Service: 10:05 Care Management Progress Note S/O: Jolanta is lying in bed and is awake and engages in conversation when CM met with her. She just got off the phone with her neighbor who calls her everyday to see when she is getting discharged. Jolanta really wants to be home and is trying to be patient. Jolanta is encouraged to ambulated and increase her diet. Her intake is poor today, per pt she doesn't have an appetite. Jolanta asks to speak with Janeth Bailon about her home services. CM left a message for Janeth. CM will follow. A: 76 year old female admitted to [facility] 08/03/22 for SBO P: Anticipate, Jolanta will discharge home via RCT W/C van with resumption of H RN/PT/SUPERVISOR PAINT. Janeth Walker from [facility] is coordinating home services. In addition, SHAJI spoke with Photo Technician at [facility] for coordination of additional support upon discharge. [facility] RN may be available to support as well, per [facility] gluing machine operator. CM continues to follow.
[2022-08-29] MEDS: Pantoprazole 40 MG VIAL IVP ×2 (10:17→21:21)
--- NOTE | 2022-08-29 15:52 | W.PM.PROGNOT ---
Date of Service Date of service: 08/29/22 Time of Service: 14:33 Assessment and Plan Assessment and plan (1) Small bowel obstruction: Status: Acute Assessment and plan: 76yo female with persistent obstructive/ileus symptoms s/p ex lap, bowel resection for SBO. --Diet advanced to full liquids, encourage PO intake --OOB and ambulate --daily labs --GI/DVT prophylaxis (2) Hypoalbuminemia due to protein-calorie malnutrition: Status: Acute Assessment and plan: --TPN to be stopped tomorrow (3) Postoperative paralytic ileus: Status: Acute Assessment and plan: Ileus resolving. --erythromycin --Milk of Magnesia --simethicone --Dulcolax suppository Subjective Subjective Interval history since last seen: Dr. Mehta removed the NGT this AM. Jolanta has been moving out of bed and ambulating. SHe is voiding without difficulty and continues to have bowel movements. She is eager to go home and have hot dogs. Exam Const General: cooperative and no acute distress Orientation: alert, awake and oriented x3 HENCA General nose exam: other (NGT in right nare, clamped) Resp Effort & Inspection: normal respiratory effort and able to speak in complete sentences Auscultation: clear to auscultation bilaterally Cardio Rate: regular rate Rhythm: regular rhythm Heart Sounds: S1 normal and S2 normal GI Inspection: distended, incision (healing well, no signs of infection) and obesity Palpation: soft, not firm, no guarding and nontender Percussion: tympanic to percussion Auscultation: hypoactive bowel sounds Neuro General: patient alert, patient awake and patient oriented x3 Cognition: normal cognition Speech: speech normal Extrem General: no clubbing, cyanosis or edema and no calf tenderness Psych Mental Status: mental status grossly normal Speech and Movement: speech and movement normal Mood: congruent mood (Jolanta's mood is perky and playful today) Thought Process: normal Insight: insight good Objective Last Vital Signs Temp 98.1 F 08/29/22 07:17 Pulse 86 08/29/22 07:17 Resp 14 08/29/22 07:17 BP 129/75 08/29/22 07:17 Pulse Ox 95 08/29/22 07:17 Laboratory Results - last 24 hr 08/29/22 08/29/22 08/29/22 06:40 06:40 06:40 WBC 9.97 RBC 3.08 L Hgb 9.3 L Hct 29.1 L MCV 95 MCH 30.2 MCHC 32.0 RDW 14.5 Plt Count 308 MPV 8.9 PT INR Sodium Cancelled 130 L Potassium Cancelled 3.0 L Chloride Cancelled 100 Carbon Dioxide Cancelled 23.2 Anion Gap Cancelled 6.8 BUN Cancelled 24 H Creatinine Cancelled 0.9 Est GFR (CKD-EPI 2020) Cancelled 66.26 Glucose Cancelled 157 H Calcium Cancelled 9.0 Phosphorus 3.5 Magnesium Cancelled 1.6 L Total Bilirubin 0.3 AST 11 L ALT 12 L Alkaline Phosphatase 115 Total Protein 6.3 L Albumin 2.7 L 08/29/22 06:40 WBC RBC Hgb Hct MCV MCH MCHC RDW Plt Count MPV PT 9.4 INR 0.9 Sodium Potassium Chloride Carbon Dioxide Anion Gap BUN Creatinine Est GFR (CKD-EPI 2020) Glucose Calcium Phosphorus Magnesium Total Bilirubin AST ALT Alkaline Phosphatase Total Protein Albumin Time Spent with Patient Time Spent with Patient: <25 minutes Time was spent: preparing to see the patient(eg.review tests), referring, communicating with other health human services care specialist, indepentently interpreting results and counseling the patient
[2022-08-29 15:54] VITALS: BP 114/69; PULSE 94; RESP 17; TEMP 36.6; O2SAT 100
--- NOTE | 2022-08-29 16:20 | CHAPLAIN ---
Jolanta was resting in bed when I stopped in. She said she was not up for a conversation and I let her know I would try another time.
[2022-08-29] MEDS: Amitriptyline 50 MG TAB 100 MG PO (21:13)
[2022-08-29] MEDS: Melatonin 3 MG TAB 6 MG PO (21:13)
[2022-08-29] MEDS: Lidocaine Patch Removal 1 EACH TD (21:21)
[2022-08-30] MEDS: Insulin Aspart 300 UNITS/3 ML PEN SC ×3 (06:15→18:05)
[2022-08-30] MEDS: Heparin 5,000 UNITS/ML VIAL 5000 UNITS SC ×3 (06:17→20:07)
[2022-08-30 06:50] LABS: HGB 9.9 g/dL (11.2-15.7); MCH 30.3 pg (27.0-33.0); MCV 92 fL (80-95); MPV 9.4 fL (8.0-11.0); Platelet Count 325 10^3/uL (130-400); RBC 3.27 10^6/uL (3.93-5.22); RDW 14.4 % (11.7-14.6); RDW-SD 48.1 fL; WBC 8.87 10^3/uL (4.4-10.8)
[2022-08-30 06:57] LABS: Prothrombin Time 9.7 sec (9.3-11.0)
[2022-08-30 07:01] LABS: Anion Gap 10.7 mmol/L (3-11); BUN 22 mg/dL (7-18); CO2 22.3 mmol/L (21.0-32.0); CREATININE 0.9 mg/dL (0.55-1.02); Calcium 9.5 mg/dL (8.5-10.1); Chloride 102 mmol/L (98-107); Estimated GFR 66.26 (mL/min/1.73m2); Glucose 165 mg/dL (74-106); Magnesium 1.6 mg/dL (1.8-2.4); Sodium 135 mmol/L (136-145)
--- NOTE | 2022-08-30 07:09 | PGE_ITS ---
Date of Service Date of service: 08/30/22 Time of Service: 07:09 Assessment and Plan Assessment and plan (1) Small bowel obstruction: Status: Acute Assessment and plan: 76yo female with persistent obstructive/ileus symptoms s/p ex lap, bowel resection for SBO. --Tolerating liquid diet. --OOB and ambulate --daily labs --GI/DVT prophylaxis Jolanta is very eager to be d/c home. Tentative plan for d/c home tomorrow. I saw and examined Jolanta around 7:00 this morning. I agree with Priyanka Silva's note. She is tolerated the removal of the nasogastric tube without any sym ptoms. She is moving her bowels. She denies any pain this morning. We can finish the TPN through today. I will keep her on a liquid diet, but protein. We will continue the erythromycin to help with GI motility. Assuming she does okay through the night, we will plan to discharge her home on the (2) Hypoalbuminemia due to protein-calorie malnutrition: Status: Acute Assessment and plan: --TPN to be stopped tomorrow (3) Postoperative paralytic ileus: Status: Acute Assessment and plan: Ileus resolving. --erythromycin --Milk of Magnesia --simethicone --Dulcolax suppository -- Numerous liquid BMs yesterday and this morning. Subjective Subjective Interval history since last seen: Arrived with Jolanta resting comfortably in bed. She denies any abdominal pain, nausea or vomiting. Exam Const General: cooperative, healthy appearing and comfortable Orientation: alert and oriented x3 Resp Effort & Inspection: normal respiratory effort, no audible wheezes and no cough GI Inspection: normal to inspection Palpation: soft, no guarding and nontender Objective Last Vital Signs Temp 36.6 C 08/29/22 15:54 Pulse 94 H 08/29/22 15:54 Resp 17 08/29/22 15:54 BP 114/69 08/29/22 15:54 Pulse Ox 100 08/29/22 15:54 Laboratory Results - last 24 hr 08/29/22 08/30/22 08/30/22 06:40 06:20 06:20 WBC 8.87 RBC 3.27 L Hgb 9.9 L Hct 30.0 L MCV 92 MCH 30.3 MCHC 33.0 RDW 14.4 Plt Count 325 MPV 9.4 PT 9.7 INR 1.0 Sodium 130 L Potassium 3.0 L Chloride 100 Carbon Dioxide 23.2 Anion Gap 6.8 BUN 24 H Creatinine 0.9 Est GFR (CKD-EPI 2020) 66.26 Glucose 157 H Calcium 9.0 Phosphorus 3.5 Magnesium 1.6 L Total Bilirubin 0.3 AST 11 L ALT 12 L Alkaline Phosphatase 115 Total Protein 6.3 L Albumin 2.7 L Time Spent with Patient Time Spent with Patient: <25 minutes Time was spent: preparing to see the patient(eg.review tests)
[2022-08-30 07:28] LABS: Albumin 2.8 g/dL (3.4-5.0); Alkaline Phosphatase 118 U/L (46-116); Bilirubin, Total 0.3 mg/dL (0.2-1.0); PHOSPHORUS 3.6 mg/dL (2.6-4.7); Total Protein 6.7 g/dL (6.4-8.2)
[2022-08-30 07:29] LABS: ALT 17 U/L (14-59); AST 10 U/L (15-37)
[2022-08-30 07:55] VITALS: BP 109/66; PULSE 93; RESP 16; TEMP 36.4; O2SAT 98
--- NOTE | 2022-08-30 08:30 | CMPROGNOTE_ITS ---
- If Service Date Differs Date of service: 08/30/22 Time of Service: 08:30 Care Management Progress Note S/O: Jolanta continues to be anxious to discharge back to her apartment at the [facility]. Jolanta reports that she is very close to calling a taxi even if it's against medical advise. Per Jolanta, she has a lifeline and friends that will check in on her at home. Per Surgery, there is a tentative plan for d/c home tomorrow, if medically ready. On discharge, Jolanta will need resumption of [facility] RN/PT/MEDICAL BILLER/CODER and community support. Janeth Walker from [facility] is notified and will try to coordinate home services for this weekend, however the agency is experiencing staffing issues. Per Janeth, prior to Jolanta's admission she was receiving 3-5 hours a day of caregiver support through [facility]. Janeth notes that Jolanta is eligible for more hours of support through [facility] and is waiting to here back from [facility]. CM will follow. A: 76 year old female admitted to [facility] 08/03/22 for SBO P: Anticipate, Jolanta will discharge home via [facility] W/C van with resumption of [facility] RN/PT/MEDICAL BILLER/CODER and community support, when medically ready per Surgery. Janeth Walker from [facility] is coordinating home services. Previously, CM spoke with Incident Handler at [facility] for coordination of additional support upon discharge. [facility] RN may be available to support as well, per [facility] swinging cut off saw operator. CM continues to follow.
--- NOTE | 2022-08-30 08:30 | PDOC.CMPRO ---
- If Service Date Differs Date of service: 08/30/22 Time of Service: 08:30 Care Management Progress Note S/O: Jolanta continues to be anxious to discharge back to her apartment at the [facility]. Jolanta reports that she is very close to calling a taxi even if it's against medical advise. Per Jolanta, she has a lifeline and friends that will check in on her at home. Per Surgery, there is a tentative plan for d/c home tomorrow, if medically ready. On discharge, Jolanta will need resumption of [facility] RN/PT/THUMB SEWER and community support. Janeth Walker from [facility] is notified and will try to coordinate home services for this weekend, however the agency is experiencing staffing issues. Per Janeth, prior to Jolanta's admission she was receiving 3-5 hours a day of caregiver support through [facility]. Janeth notes that Jolanta is eligible for more hours of support through [facility] and is waiting to here back from [facility]. CM will follow. A: 76 year old female admitted to [facility] 08/03/22 for SBO P: Anticipate, Jolanta will discharge home via [facility] W/C van with resumption of [facility] RN/PT/THUMB SEWER and community support, when medically ready per Surgery. Janeth Walker from [facility] is coordinating home services. Previously, CM spoke with Hearing Examiner at [facility] for coordination of additional support upon discharge. [facility] RN may be available to support as well, per [facility] compugraph operator. CM continues to follow.
[2022-08-30] MEDS: Nystatin 500000 UNITS/5 ML SUSP 5ML CUP PO ×3 (09:07→20:04)
[2022-08-30] MEDS: Protein Nutritional Supplement 16 GM 1 OUNCE PACKET PO ×3 (09:08→20:06)
[2022-08-30] MEDS: DULoxetine 30 MG CAP PO (09:08)
[2022-08-30] MEDS: Lidocaine 5% Patch 1 PATCH TP (09:08)
[2022-08-30] MEDS: Pantoprazole 40 MG VIAL IVP ×2 (09:08→20:54)
[2022-08-30] MEDS: QUEtiapine 25 MG TAB PO ×2 (09:08→20:06)
[2022-08-30] MEDS: Simethicone 80 MG CHEW 40 MG PO ×4 (09:08→20:05)
[2022-08-30 15:06] VITALS: BP 107/57; PULSE 92; RESP 16; TEMP 36.8; O2SAT 99
[2022-08-30] MEDS: Normal Saline Flush 10 ML SYR IVP ×2 (16:40→20:54)
--- NOTE | 2022-08-30 18:19 | NUR.NOTE ---
Nursing Note: nolan Newby RN was given a verbal order from Tyson EMERY to discontinue the tpn after this bag finishes
[2022-08-30] MEDS: Amitriptyline 50 MG TAB 100 MG PO (20:06)
[2022-08-30] MEDS: Melatonin 3 MG TAB 6 MG PO (20:06)
[2022-08-30] MEDS: Lidocaine Patch Removal 1 EACH TD (20:22)
[2022-08-30 23:04] VITALS: BP 122/61; PULSE 86; RESP 21; TEMP 36.5; O2SAT 98
[2022-08-31] MEDS: Insulin Aspart 300 UNITS/3 ML PEN SC ×3 (01:20→11:50)
--- NOTE | 2022-08-31 05:42 | DSE_ITS ---
Date of service: 08/31/22 Time of Service: 13:00 DS: Diagnosis Discharge Diagnosis (1) Small bowel obstruction: Asessment and Plan: Status post exploratory laparotomy, extensive adhesiolysis, small bowel resection (2) Hypoalbuminemia due to protein-calorie malnutrition: Status: Acute Asessment and Plan: We will plan ongoing protein supplementation, and she will need follow-up nutrition labs as an outpatient (3) Postoperative paralytic ileus: Status: Acute Asessment and Plan: Improved with the use of enteral erythromycin which we will continue as an outpatient Discharge Plan Disposition Patient Disposition: Home W/Home Health Services Condition: Good Discharge Details Reason For Visit: Small Bowel Obstruction Admit Date/Time: 08/03/22 00:18 Admit Provider: Anjum Mehta Attending Provider: Anjum Mehta Primary Care Provider: Josy Thomas Hospital Course Hospital Course: He is a 76-year-old woman who presented to the emergency department with abdominal pain, and nausea. She underwent a CAT scan of the abdomen and pelvis that demonstrated high-grade partial small bowel obstruction. Attempts were made to treat this with a Gastrografin challenge, unfortunately, she did not tolerate this and had increasing peritonitis. Therefore, she was brought to the operating room. I performed extensive adhesiolysis, and a segmental small bowel resection with enteroenterostomy. Her postoperative course was complicated by severe postoperative ileus. She had multiple rounds of nasogastric tube insertion and removal, and ultimately required the use of total parenteral nutrition for several weeks. During that time, she was seen in consultation by physical therapy to assist with ambulation gait dysfunction. After several rounds of nasogastric tube manipulation, she underwent small bowel follow- through in an effort to identify any postoperative bowel obstruction. Although transit through the stomach and duodenum was quite slow, ultimately, the contrast did pass beyond the new anastomosis, and into the large intestine and rectum. Subsequently, she began having more frequent bowel movements. She was able to tolerate liquid diet with protein supplementation. She was started on enteral erythromycin to help with GI motility and gastroparesis. Home Meds and New Rx's Prescriptions: New erythromycin ethylsuccinate 200 mg/5 mL Suspension For Reconstitution 400 mg PO TID Qty: 200 3RF Rx Instructions: Follow-up take 10 mL by mouth 3 times per day magnesium hydroxide [Milk of Magnesia] 400 mg/5 mL Suspension 30 ml PO HS PRN PRN (Reason: constipation) Qty: 355 2RF Rx Instructions: Take 30 mL by mouth every night. simethicone 80 mg Tablet,Chewable 40 mg PO DAILY Qty: 60 3RF Rx Instructions: Take 1 tablet by mouth every day Continued Saline Nasal 0.65 % aerosol,spray 2 spray intranasal QID PRN (Reason: dry nasal passages) Qty: 88 12RF hydroxyzine HCl 25 mg tablet 25 - 50 mg PO DIRECTED PRN (Reason: headache) Qty: 180 4RF Rx Instructions: q4hr prn headache /01-04-20: added also for anxiety tid prn/ NOT SENT estradiol [Vagifem] 10 mcg tablet 10 mcg VG as directed PRN (Reason: vaginal dryness) Qty: 30 5RF Rx Instructions: Insert one tablet 3 to 5 times a week as needed lorazepam 0.5 mg tablet 0.5 mg PO ONCE PRN (Reason: anxiety) Qty: 2 0RF Rx Instructions: Take 1 tab 30min prior to MRI; if still anxious ok to take second acetaminophen [Tylenol Arthritis Pain] 650 mg tablet extended release 1,300 mg PO BID PRN (Reason: pain) Qty: 120 6RF calcium carbonate-vitamin D3 [Calcium 600 + D(3)] 600 mg-10 mcg (400 unit) tablet 1 tab PO BID Qty: 60 11RF cholecalciferol (vitamin D3) 25 mcg (1,000 unit) tablet 1,000 unit PO BID Qty: 180 4RF docusate sodium 100 mg capsule 100 mg PO BID PRN (Reason: constipation) Qty: 180 4RF ferrous sulfate 325 mg (65 mg iron) tablet 325 mg PO DAILY Qty: 90 3RF multivitamin Tablet 1 tab PO DAILY Qty: 90 4RF triamcinolone acetonide 0.1 % cream 1 applic topical BID PRN (Reason: foot rash) Qty: 30 1RF amitriptyline 100 mg tablet 100 mg PO QHS Qty: 90 3RF mirabegron 25 mg tablet extended release 24 hr 25 mg PO DAILY Qty: 30 11RF omeprazole 40 mg capsule,delayed release(DR/EC) 40 mg PO DAILY Qty: 90 1RF magnesium oxide 400 mg (241.3 mg magnesium) tablet 400 mg PO DAILY Qty: 132 3RF Hold Instructions: Home Medication placed on hold at Doctor's office Rx Instructions: take one tablet on Saturday,Saturday,Saturday and 2 tabs on other days metformin 500 mg tablet,ER melissa.retention 24 hr 500 - 1,000 mg PO .bid as directed Qty: 270 2RF Rx Instructions: take 2 tablets in am and one tablet pm potassium chloride 20 mEq tablet extended release 20 meq PO . AFTERNOON Qty: 90 2RF Rx Instructions: take one tablet daily cyanocobalamin (vitamin B-12) 1,000 mcg capsule 1,000 mcg PO DAILY Qty: 90 2RF gabapentin 300 mg capsule 300 mg PO DIRECTED Qty: 360 1RF Rx Instructions: 300mg am and noon; 600mg HS; duloxetine 30 mg capsule, delayed rel sprinkle 30 mg PO DAILY Qty: 30 1RF Discharge Instructions Additional Instructions: 1. Eat only liquids, and pur?ed solid foods. Your food and drink should be the consistency that does not require any chewing. Babyfood would be fine. 2. Take erythromycin medicine by mouth 3 times per day, think of it as breakfast, lunch, and dinner. 3. Please pickers material handlers some Boost or Ensure from the pharmacy or grocery store. Check to see how many grams of protein are in each bottle. They generally range between 10 to 20 g per bottle based on the brand and flavor. You will need to add approximately 30 g of protein to your diet each day. That means drinking between 1-3 bottles of these high-protein nutrition drinks every single day. Referrals: Anjum Mehta MD [ [facility] STAFF PHYSICIAN] - (September at 9:30 AM) Activity:: Activity as Tolerated Equipment/Supplies:: No Equipment Needed Diet:: See additional instructions DS: Summary Time Spent with Patient providing and/or coordinating discharge services: Greater than 30 minutes Status at Discharge Functional status at discharge: uses cane/walker Overall status at discharge: patient is back to baseline Mental Status: mental status grossly normal Speech and Movement: speech and movement normal Mood: congruent mood Affect: normal affect Exam Const General: cooperative, comfortable and no acute distress Nutritional Appearance: overweight Orientation: alert, awake and oriented x3 HENMT Head: normal to inspection Neck Neck: normal visual inspection and full ROM Resp Effort & Inspection: normal respiratory effort, able to speak in complete sentences and no audible wheezes Auscultation: clear to auscultation bilaterally Cardio Jugular venous pressure: no JVD Rate: regular rate Rhythm: regular rhythm Heart Sounds: S1 normal and S2 normal GI Inspection: non-distended Palpation: soft, no guarding, no hernias and nontender Percussion: normal to percussion Auscultation: abnormal bowel sounds Neuro General: patient alert, patient awake and patient oriented x3 Extrem Right lower extremity: edema Left lower extremity: edema Psych Mental Status: mental status grossly normal Speech and Movement: speech and movement normal Mood: congruent mood Affect: normal affect DS: Data Vitals/I&O Vitals and I&O: Vital Signs Temperature 97.7 F 08/30/22 23:04 Temperature Source Tympanic 08/30/22 23:04 Pulse 86 08/30/22 23:04 Pulse Rhythm Regular 08/31/22 01:28 Pulse 104 H 08/11/22 06:01 Respiratory Rate 21 08/30/22 23:04 Respiratory Effort Non-Labored 08/31/22 01:28 Respiratory Depth Normal 08/31/22 01:28 Respiratory Pattern Normal 08/31/22 01:28 Blood Pressure 122/61 08/30/22 23:04 Blood Pressure Mean 79 08/11/22 08:00 Blood Pressure Position Supine 08/11/22 08:00 Pulse Oximetry 98 08/30/22 23:04 Respiratory End-tidal CO2 31 08/03/22 18:43 Oxygen Delivery Method Room Air 08/30/22 23:04 Oxygen Flow Rate 0 08/30/22 23:04 Pain Level 0 08/30/22 23:04 Comment 08/29/22 12:05 Intake & Output 08/30/22 08/30/22 08/31/22 11:59 23:59 11:59 Intake Total 380 / 520 140 / 520 Output Total 700 / 1100 400 / 1100 Balance -320 / -580 -260 / -580 Intake: IV Oral 360 / 480 120 / 480 Output: Urine 700 / 1100 400 / 1100 Other: Urine Color Straw Yellow Urine Appearance Cloudy Clear Clear Comment mixed Stool Size Moderate Small Stool Characteristics Liquid Liquid Voiding Methods Bedside Commode Bedside Commode Data Completed and Pending Labs on day of discharge: Labs from last 24 hours 08/31/22 08/31/22 08/31/22 05:35 05:35 05:35 WBC Pending RBC Pending Hgb Pending Hct Pending MCV Pending MCH Pending MCHC Pending RDW Pending Plt Count Pending MPV Pending PT Pending INR Pending Sodium Pending Potassium Pending Chloride Pending Carbon Dioxide Pending Anion Gap Pending BUN Pending Creatinine Pending Est GFR (CKD-EPI 2020) Pending Glucose Pending Calcium Pending Phosphorus Pending Magnesium Pending Total Bilirubin Pending AST Pending ALT Pending Alkaline Phosphatase Pending Total Protein Pending Albumin Pending 08/30/22 08/30/22 08/30/22 06:20 06:20 06:20 WBC 8.87 RBC 3.27 L Hgb 9.9 L Hct 30.0 L MCV 92 MCH 30.3 MCHC 33.0 RDW 14.4 Plt Count 325 MPV 9.4 PT 9.7 INR 1.0 Sodium Cancelled Potassium Cancelled Chloride Cancelled Carbon Dioxide Cancelled Anion Gap Cancelled BUN Cancelled Creatinine Cancelled Est GFR (CKD-EPI 2020) Cancelled Glucose Cancelled Calcium Cancelled Phosphorus Cancelled Magnesium Total Bilirubin Cancelled AST Cancelled ALT Cancelled Alkaline Phosphatase Cancelled Total Protein Cancelled Albumin Cancelled 08/30/22 06:20 WBC RBC Hgb Hct MCV MCH MCHC RDW Plt Count MPV PT INR Sodium 135 L Potassium 3.0 L Chloride 102 Carbon Dioxide 22.3 Anion Gap 10.7 BUN 22 H Creatinine 0.9 Est GFR (CKD-EPI 2020) 66.26 Glucose 165 H Calcium 9.5 Phosphorus 3.6 Magnesium 1.6 L Total Bilirubin 0.3 AST 10 L ALT 17 Alkaline Phosphatase 118 H Total Protein 6.7 Albumin 2.8 L Additional Comments Additional comments: Please remove right internal jugular triple-lumen catheter prior to discharge PFSH All Active Problems (Updated 08/31/22 @ 13:09 by Anjum Mehta MD) Gastroparesis (Acute) Hypoalbuminemia due to protein-calorie malnutrition (Acute) At high risk for skin breakdown (Acute) UGI bleed (Acute) E. coli UTI (urinary tract infection) (Acute) Postoperative paralytic ileus (Acute) Type 2 diabetes mellitus with complication, without long-term current use of insulin (Chronic 12/02/17) Hyperlipidemia (Chronic) Vitamin D deficiency (Chronic 08/11/12) Cervical spondylosis (Chronic 02/11/14) Multiple sclerosis (Chronic) secondary progressive HTN (hypertension) (Acute) Vitamin B12 deficiency (Chronic) SHERRELL (generalized anxiety disorder) (Chronic) Depression (Chronic) Chronic low back pain (Acute) Monocular diplopia (Chronic) Mild cognitive impairment (Acute) Walker as ambulation aid (Chronic) uses in her apartment Uses wheelchair (Chronic) when out of her apartment motorized Urinary incontinence, mixed (Acute) uses adult diapers Fecal incontinence (Acute) Osteoarthritis of carpometacarpal joint of left thumb (Acute) Tobacco dependence due to cigarettes (Acute) Lung nodule, solitary (Acute) 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 SBO (small bowel obstruction) multiple; last May 2018 Small bowel obstruction Tenosynovitis, de Quervain left sided Surgical History H/O hemorrhoidectomy History of bowel resection History of cataract surgery History of repair of hiatal hernia paproscopic repair Hx of arthroscopy of right knee Hx of hysterectomy S/P trigger finger release Status post de Quervain's release surgery Status post total right knee replacement Family History Mother , AGE 87 Diabetes Stroke Father , AGE 83 lung cancer Cancer Heart disease CABG x 4 Brother , AGE 70 motor vehicle crash Motor vehicle accident Brother Family estrangement Brother No problems noted. Daughter Family estrangement ok relationship Daughter Family estrangement emotional estrangement Social History Smoking/Tobacco Use Status: Current every day Tobacco Type: cigarettes Tobacco: How many years used: 60 Quit status: not considering quitting Second Hand Exposure: Yes Counseling given: provider counseling Smoking risk assessment performed?: Yes Alcohol Intake: never Drug use: Never Substance use type: does not use Caregiver/Support person: Yes (has [employer] intermediary home caregiver faraz [email or web address]) Details: lives in [place] apartment Household members: none Housing: apartment Number of Children: 2 number of grandchildren: 6 Communication Needs: Hard of Hearing and Corrective Lenses Education Level: high school Do you need help understanding health information?: Often 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 Pets and animals: No Sexually active: No Do you think of yourself as: straight/heterosexual Current gender identity: female What is your relationship status?: How often do you talk on the phone with friends or family?: twice per week How often do you get together with friends or relatives?: three or more times per week How often do you attend jehovah's witness or muslim services?: decline to answer Do you belong to any clubs or organized social groups?: no Panel score (0-1 are the most socially isolated patients): 1 What type of physical activity do you participate in: none Duration: < 15 minutes/day Frequency: daily Marilee/Moravian: Judaism Special marilee needs: No Seatbelt use: always Helmet use: No Drive intox or ride w/intox automation driver: No Working smoke detector in home: Yes Fire extinguisher in home: Yes Do you feel safe at home: Yes Do you feel safe in your relationship?: Yes Time Spent with Patient Time Spent with Patient: <45 minutes Time was spent: referring, communicating with other health infant childcare provider and counseling the patient
[2022-08-31] MEDS: Heparin 5,000 UNITS/ML VIAL 5000 UNITS SC ×2 (06:06→13:12)
[2022-08-31 07:01] LABS: ALT 12 U/L (14-59); AST 10 U/L (15-37); Albumin 2.6 g/dL (3.4-5.0); Alkaline Phosphatase 103 U/L (46-116); Anion Gap 8.2 mmol/L (3-11); BUN 22 mg/dL (7-18); Bilirubin, Total 0.3 mg/dL (0.2-1.0); CO2 23.8 mmol/L (21.0-32.0); CREATININE 0.9 mg/dL (0.55-1.02); Calcium 8.8 mg/dL (8.5-10.1); Chloride 105 mmol/L (98-107); Estimated GFR 66.26 (mL/min/1.73m2); Glucose 149 mg/dL (74-106); Magnesium 1.7 mg/dL (1.8-2.4); PHOSPHORUS 3.4 mg/dL (2.6-4.7); Potassium 3.5 mmol/L (3.5-5.1); Sodium 137 mmol/L (136-145)
[2022-08-31 07:03] LABS: HCT 26.6 % (36.0-46.0); HGB 8.9 g/dL (11.2-15.7); MCH 32.1 pg (27.0-33.0); MCHC 33.5 % (32.0-36.0); MCV 96 fL (80-95); MPV 9.5 fL (8.0-11.0); Platelet Count 247 10^3/uL (130-400); RBC 2.77 10^6/uL (3.93-5.22); RDW 14.8 % (11.7-14.6); RDW-SD 50.7 fL; WBC 8.35 10^3/uL (4.4-10.8)
[2022-08-31 07:20] VITALS: BP 121/70; PULSE 83; RESP 17; TEMP 36.2; O2SAT 96
[2022-08-31 08:32] LABS: Prothrombin Time 9.9 sec (9.3-11.0)
[2022-08-31] MEDS: Acetaminophen 325 MG TAB (08:52)
[2022-08-31] MEDS: Nystatin 500000 UNITS/5 ML SUSP 5ML CUP PO ×2 (08:53→13:12)
[2022-08-31] MEDS: Pantoprazole 40 MG VIAL IVP (08:53)
[2022-08-31] MEDS: Normal Saline Flush 10 ML SYR IVP ×2 (08:53→14:01)
[2022-08-31] MEDS: DULoxetine 30 MG CAP PO (08:54)
[2022-08-31] MEDS: Protein Nutritional Supplement 16 GM 1 OUNCE PACKET PO (08:54)
[2022-08-31] MEDS: QUEtiapine 25 MG TAB PO (08:55)
[2022-08-31] MEDS: Simethicone 80 MG CHEW 40 MG PO ×2 (08:55→13:12)
[2022-08-31] MEDS: Lidocaine 5% Patch 1 PATCH TP (08:56)
--- NOTE | 2022-08-31 10:42 | CMDISCH_ITS ---
- If Service Date Differs Date of service: 08/31/22 Time of Service: 10:42 LACE Index Scoring Tool - Questions: Length of Stay (in days): 14 or more Acuity (Admit via E.D.?): Yes Comorbidities: Diabetes w/o Complication E.D. Visits: 2 - Answers: Total Score: 13 Risk of Readmission: High Risk Care Management Discharge Reason for Hospitalization: SBO Discharge Plan: Jolanta is discharged home with resumption of [facility] (full services), [facility] support (3-5 hours daily) and [facility] services. Jolanta is transported via [employer] w/[employer]. New RXs are transmitted to [facility] and [facility] supplements are sent home with Jolanta, in case there is a delay in purchasing them. Jolanta will follow up with community providers and discharge plan of care as prescribed. Patient/Family Education Needs: Review discharge instructions, limitations, medications and plan to follow up with community providers, H and [facility] support services. Discuss ask me three and goals of self care. Services Needed at Discharge: Home Health Care Services (Resumption of [facility] support and [facility] RN/PT/OT/MANAGER SALT. Maik from [facility] is notified of discharge. Resumption of [facility] services, Belem from [facility] is notified. ), Transportation ([facility]ia [employer] [facility] [employer])
--- NOTE | 2022-08-31 13:50 | PDOC.HHF2F ---
Home Health Referral Home Health Orders Clinical synopsis of why skilled professionals are needed: Jolanta is a 76-year-old woman who needs resumption of H RN/PT/OT/MSM with caregivers support from home health 3 to 5 hours/day. Medical diagnosis necessitation home health referral: She has a longstanding history of multiple sclerosis, and recently underwent laparotomy for a acute small bowel obstruction Registered Nurse: Check all that apply Instruct on new or changed medication(s)/assess compliance: Ordered Assess for exacerbation of medical condition, instruct patient/caregivers on signs and symptoms to report for early detection: Ordered Physical Therapist: Check all that apply Increase strength & endurance for safe mobility at home: Ordered Occupational Therapist: Evaluate and treat for patient unable to perform ADL/IADL/self-care: Ordered Water Commissioner: Assist with community resources: Ordered Home Bound Status Requires the aid of supportive device (check all that apply): Wheelchair Encounter Date and Reason: I certify that a FTF encounter for this patient was performed on August 31, 2022 and that such encounter was related to the primary reason the patient requires home health services. The encounter was conducted in the following manner: By me as the certifying physician, FRONT OFFICE SUPERVISOR, PA or By an inpatient physician, FRONT OFFICE SUPERVISOR or PA during an inpatient stay who communicated findings to me, Certification And Authentication I certify that I composed the above information based on my clinical judgment relating to this patient's medical condition and, if applicable, clinical findings communicated to me by the NPP or inpatient physician who performed the FTF encounter. Name of Provider that will be monitoring home health services: Anjum Mehta
== END 2022-08-31 14:24 | disposition home health service (06) | DRG 330 ==
LOC: ER 23:14 → MS 08-03 01:15 → ICU 08-09 09:18 → MS 08-11 12:56
PROVIDERS: Family Medicine; General Practice; Physician Assistant; Student in an Organized Health Care Education/Training Program; Surgery; Admitting Provider Surgery; Emergency Provider Emergency Medicine; PCP Family Medicine; Visit Provider Surgery
PROC: 0DB80ZZ Excision of Small Intestine, Open Approach (ICD-10-PCS; CPT 49000; principal; 2022-08-03 11:45)
DX: K56.51 Intestinal adhesions [bands], with partial obstruction (principal); E46 Unspecified protein-calorie malnutrition; K92.2 Gastrointestinal hemorrhage, unspecified; N39.0 Urinary tract infection, site not specified; Q85.89 Other phakomatoses, not elsewhere classified; K91.30 Postprocedural intestinal obstruction, unspecified as to partial versus complete; E78.5 Hyperlipidemia, unspecified; F32.A Depression, unspecified; Z79.84 Long term (current) use of oral hypoglycemic drugs; E55.9 Vitamin D deficiency, unspecified; M47.812 Spondylosis without myelopathy or radiculopathy, cervical region; G35 Multiple sclerosis; E53.8 Deficiency of other specified B group vitamins; F41.1 Generalized anxiety disorder; G89.29 Other chronic pain; M54.50 Low back pain, unspecified; H53.2 Diplopia; G31.84 Mild cognitive impairment of uncertain or unknown etiology; N39.46 Mixed incontinence; R15.9 Full incontinence of feces; F17.210 Nicotine dependence, cigarettes, uncomplicated; D63.1 Anemia in chronic kidney disease; I12.9 Hypertensive chronic kidney disease with stage 1 through stage 4 chronic kidney disease, or unspecified chronic kidney disease; E11.22 Type 2 diabetes mellitus with diabetic chronic kidney disease; Z96.651 Presence of right artificial knee joint; K56.0 Paralytic ileus; B96.20 Unspecified Escherichia coli [E. coli] as the cause of diseases classified elsewhere; M18.12 Unilateral primary osteoarthritis of first carpometacarpal joint, left hand; K30 Functional dyspepsia
CPT/HCPCS: 44120; 36415; 36591; 76942; 80048; 80053; 83690; 85027; 86850; 86900; 86901; 86920; 87040; 87077; 87635; 93005; 96365; 96366; 96375; 96376; 97110; 97116; 97162; 97530; 99222; 99285; 71045; 71046; 74018; 74019; 74176; 74177; 74250; 81003; 81015; 82607; 82728; 82746; 83540; 83550; 83605; 83735; 84100; 84134; 84484; 85018; 85025; 85049; 85610; 86140; 87086; 87186; 88307; 93010; J0131; J0690; J1170; J1200; J1644; J1756; J1885; J2060; J2250; J2270; J2405; J2704; J3010; J3475; J3480; J3490; P9016; Q9967

== ENCOUNTER → 2022-09-10 08:57 | Outpatient (BNVA) | payer MEDICARE, MEDICAID, SELFPAY | PROVIDERS: PCP Family Medicine; Referring Provider Family Medicine; Visit Provider Psychiatry & Neurology Neurology | DX: G35 Multiple sclerosis (principal); G43.009 Migraine without aura, not intractable, without status migrainosus; F41.9 Anxiety disorder, unspecified; G31.84 Mild cognitive impairment of uncertain or unknown etiology; I10 Essential (primary) hypertension; E11.9 Type 2 diabetes mellitus without complications | CPT/HCPCS: 99214 ==

== ENCOUNTER → 2022-09-19 09:49 | Outpatient (BNVA) | payer MEDICARE, MEDICAID, SELFPAY | PROVIDERS: PCP Family Medicine; Referring Provider Family Medicine; Visit Provider Surgery | DX: Z48.815 Encounter for surgical aftercare following surgery on the digestive system (principal) ==

== ENCOUNTER 2022-11-05 01:25 | Outpatient (CLI) | payer MEDICARE, MEDICAID, SELFPAY ==
--- NOTE | 2022-11-05 07:30 | DI.US_ITS ---
Exam(s) US LOWER EXTREMITY VENOUS LT EXAM: US LOWER EXTREMITY VENOUS LT CLINICAL HISTORY: left leg swelling/redness, acute,r60.9. TECHNIQUE: Lower extremity venous ultrasound performed using grayscale, color-flow, and spectral Do ppler analysis. COMPARISON: No exams were available for comparison FINDINGS: The common femoral, femoral and popliteal veins demonstrate normal compressibility, augmentation, and color Doppler. The posterior tibial veins are patent. The peroneal veins were difficult to visualiz e. No saphenous vein thrombosis or other superficial venous thrombosis is seen. Lower leg edema not ed. No hematoma or Villalobos's cyst is seen. IMPRESSION: Lower leg edema. No evidence of DVT. DATA REPOSITORY:
== END 2022-11-05 01:45 ==
LOC: DI 01:25
PROVIDERS: PCP Family Medicine; Visit Provider Family Medicine
DX: R22.42 Localized swelling, mass and lump, left lower limb; L53.8 Other specified erythematous conditions
CPT/HCPCS: 93971

== ENCOUNTER → 2022-11-08 08:24 | Outpatient (BNVA) | payer MEDICARE, MEDICAID, SELFPAY | PROVIDERS: PCP Family Medicine; Referring Provider Family Medicine; Visit Provider Psychiatry & Neurology Neurology | DX: G35 Multiple sclerosis (principal); G43.709 Chronic migraine without aura, not intractable, without status migrainosus; F15.90 Other stimulant use, unspecified, uncomplicated; F41.9 Anxiety disorder, unspecified; G31.84 Mild cognitive impairment of uncertain or unknown etiology | CPT/HCPCS: 99214 ==

== ENCOUNTER → 2023-05-09 09:18 | Outpatient (BNVA) | payer MEDICARE, MEDICAID, SELFPAY | PROVIDERS: PCP Family Medicine; Referring Provider Family Medicine; Visit Provider Psychiatry & Neurology Neurology | DX: G35 Multiple sclerosis (principal); G43.709 Chronic migraine without aura, not intractable, without status migrainosus; R41.3 Other amnesia; F41.9 Anxiety disorder, unspecified; M72.0 Palmar fascial fibromatosis [Dupuytren] | CPT/HCPCS: 99214 ==

== ENCOUNTER 2023-05-21 19:38 | Outpatient (REF) | payer MEDICARE, MEDICAID, SELFPAY ==
[2023-05-21 20:04] LABS: Abs Immature Grans 0.04 10^3/uL (0.0-0.06); Absolute Basophil Count 0.05 10^3/uL (0.0-0.2); Absolute Eosinophil Count 0.09 10^3/uL (0.0-0.7); Absolute Lymphocyte Count 3.95 10^3/uL (1.2-3.4); Absolute Monocyte Count 0.68 10^3/uL (0.1-0.8); Absolute Neutrophil Count 5.62 10^3/uL (1.2-6.7); Basophils % 0.5; Eosinophils % 0.9; HCT 38.9 % (36.0-46.0); HGB 12.9 g/dL (11.2-15.7); Immature Grans % 0.4; Lymphocytes % 37.9; MCH 32.6 pg (27.0-33.0); MCHC 33.2 % (32.0-36.0); MCV 98 fL (80-95); MPV 9.8 fL (8.0-11.0); Monocytes % 6.5; Neutrophils % 53.8; Platelet Count 266 10^3/uL (130-400); RBC 3.96 10^6/uL (3.93-5.22); RDW 15.3 % (11.7-14.6); RDW-SD 55.7 fL; WBC 10.43 10^3/uL (4.4-10.8)
[2023-05-21 20:15] LABS: ALT 23 U/L (14-59); AST 19 U/L (15-37); Albumin 2.6 g/dL (3.4-5.0); Alkaline Phosphatase 137 U/L (46-116); Anion Gap 11.1 mmol/L (3-11); BUN 19 mg/dL (7-18); Bilirubin, Total 0.1 mg/dL (0.2-1.0); CO2 23.9 mmol/L (21.0-32.0); Calcium 9.2 mg/dL (8.5-10.1); Chloride 105 mmol/L (98-107); Estimated GFR 58.02 (mL/min/1.73m2); Glucose 97 mg/dL (74-106); Potassium 3.9 mmol/L (3.5-5.1); Sodium 140 mmol/L (136-145); Total Protein 5.6 g/dL (6.4-8.2)
[2023-05-21 20:36] LABS: Hemoglobin A1C 5.8 % (<5.7)
== END 2023-05-21 19:39 | disposition home or self-care (01) ==
LOC: LBN 19:38
PROVIDERS: PCP Family Medicine; Visit Provider Family Medicine
DX: Z00.00 Encounter for general adult medical examination without abnormal findings; E11.8 Type 2 diabetes mellitus with unspecified complications; E46 Unspecified protein-calorie malnutrition; E88.09 Other disorders of plasma-protein metabolism, not elsewhere classified
CPT/HCPCS: 80053; 83036; 85025

== ENCOUNTER 2023-05-22 17:59 | Outpatient (REF) | payer MEDICARE, MEDICAID, SELFPAY ==
[2023-05-23 22:35] LABS: Campylobacter PCR Negative (Negative); Salmonella PCR Negative (Negative); Shiga Toxin PCR Negative (Negative); Shigella/Enteroinvasive Ecoli Negative (Negative)
== END 2023-05-22 18:00 | disposition home or self-care (01) ==
LOC: NCHCN 17:59
PROVIDERS: PCP Family Medicine; Visit Provider Family Medicine
DX: R15.9 Full incontinence of feces (principal); R19.7 Diarrhea, unspecified
CPT/HCPCS: 87505

== ENCOUNTER 2023-07-12 10:00 | Emergency (ER) | payer MEDICARE, MEDICAID, SELFPAY ==
[2023-07-12 09:57] VITALS: BP 111/63; PULSE 72; RESP 16; TEMP 36.3; O2SAT 98
--- NOTE | 2023-07-12 10:00 | DI.RAD_ITS ---
Exam(s) XR PELVIS AP EXAM: XR PELVIS AP CLINICAL HISTORY: fall. TECHNIQUE: 2D digital imaging was performed.One images were obtained. COMPARISON: No exams were available for comparison FINDINGS: BONES: No acute fracture is present. No bony destructive lesion is seen. JOINTS: No dislocation present. Degenerative changes are seen in the lower lumbar spine. Mild degene rative changes in the right hip. SOFT TISSUE: Vascular calcifications are present. IMPRESSION: No acute fracture or dislocation. DATA REPOSITORY: RADIATION DOSE DELIVERED:
--- NOTE | 2023-07-12 10:00 | DI.CT_ITS ---
Exam(s) CT HEAD CERVICAL SPINE WO EXAM: CT HEAD CERVICAL SPINE WO CLINICAL HISTORY: fall. TECHNIQUE: Imaging Protocol: Axial computed tomography images with coronal and sagittal reformatted images were created and reviewed COMPARISON: CT HEAD WITHOUT CONTRAST from 10/21/2007 FINDINGS: CT Head: Ventricles and Extra axial spaces: Normal in size and morphology for the patient's age. Hemorrhage: None. Cerebral parenchyma: There are areas of decreased attenuation in the white matter consistent with sma ll vessel ischemic disease. No mass effect is identified. No acute territorial infarct is seen. Midline shift: None. Brainstem/Cerebellum: Normal. Calvarium: Normal. Visualized Paranasal sinuses/Mastoids: Clear. Soft Tissues: Unremarkable. CT Cervical Spine: Bones: No acute fracture or subluxation. Degenerative changes are seen throughout the cervical spine. There is straightening of the normal cervical lordosis which may be due to muscle spasm or patient positioning. Soft Tissues: Unremarkable. IMPRESSION: 1. No acute intracranial process. 2. No acute fracture or subluxation in the cervical spine. RADIATION DOSE DELIVERED: Total DLP DATA REPOSITORY: All CT scans at this facility are submitted to the National Radiology Data Registry (NRDR) Dose Index Registry (DIR) with the [employer] (ACR). RADIATION OPTIMIZATION: All CT scans at this facility use at least one of these dose optimization te chniques: automated exposure control; mA and/or kV adjustment per patient size (includes targeted exa ms where dose is matched to clinical indication); or iterative reconstruction.
--- NOTE | 2023-07-12 10:06 | DI.CT_ITS ---
Exam(s) CT CHEST WO EXAM: CT CHEST WO CLINICAL HISTORY: fall. TECHNIQUE: Imaging protocol: Axial computed tomography images were obtained and coronal and sagittal reformatted images were created and reviewed. COMPARISON: CT CT CHEST WO from 06/06/[address] ABDOMEN PELVIS WO from 08/24/2022 FINDINGS: Tracheobronchial tree: Unremarkable. Pulmonary parenchyma: There is a stable right apical nodule. Calcified granuloma are present. There is a stable 4 mm right lower lobe pulmonary nodule (series 3, image 368). Stable fat density nodule in the left lower lobe most consistent with a hamartoma. No pulmonary infiltrates. No architectura l distortion. Mediastinum and Ping: No dominant adenopathy or fluid collection. The esophagus is fluid-filled. Thyroid gland: Unremarkable. Pleura: No effusion or pneumothorax. Heart: The heart is not dilated. Coronary artery calcification and/or stents. Tiny pericardial effus ion. This is unchanged. Aorta: Thoracic aorta non-dilated. Atherosclerosis. Upper abdomen: Stable adrenal masses likely reflecting adenomas. Lymph nodes: Within normal limits. Soft tissues: Unremarkable. Bones:Within normal limits for the patient's age. IMPRESSION: 1. No acute pulmonary process. No acute fracture. 2. Findings were discussed with the emergency department at 11:53 a.m. on 07/12/2023. RADIATION DOSE DELIVERED: Total DLP Total DLP DATA REPOSITORY: All CT scans at this facility are submitted to the National Radiology Data Registry (NRDR) Dose Index Registry (DIR) with the [employer] (ACR). RADIATION OPTIMIZATION: All CT scans at this facility use at least one of these dose optimization te chniques: automated exposure control; mA and/or kV adjustment per patient size (includes targeted exa ms where dose is matched to clinical indication); or iterative reconstruction.
--- NOTE | 2023-07-12 10:14 | ED.GENADUL_ITS ---
Discharge Plan Disposition Patient Disposition: Home Discharge Details Clinical Impression: Acute UTI, Fall Primary Care Provider: Josy Thomas ED Provider: Michael Blanco Home Meds and New Rx's Prescriptions: New cephalexin 500 mg capsule 500 mg PO BID 5 Days Qty: 10 0RF No Action Saline Nasal 0.65 % aerosol,spray 2 spray intranasal QID PRN (Reason: dry nasal passages) Qty: 88 12RF estradiol [Vagifem] 10 mcg tablet 10 mcg VG as directed PRN (Reason: vaginal dryness) Qty: 30 5RF Rx Instructions: Insert one tablet 3 to 5 times a week as needed acetaminophen [Tylenol Arthritis Pain] 650 mg tablet extended release 1,300 mg PO BID PRN (Reason: pain) Qty: 120 6RF triamcinolone acetonide 0.1 % cream 1 applic topical BID PRN (Reason: foot rash) Qty: 30 1RF ferrous sulfate 325 mg (65 mg iron) tablet 325 mg PO DAILY Qty: 90 3RF calcium carbonate-vitamin D3 [Calcium 600 + D(3)] 600 mg-10 mcg (400 unit) tablet 1 tab PO BID Qty: 60 11RF duloxetine 30 mg capsule, delayed rel sprinkle 30 mg PO DAILY Qty: 30 12RF docusate sodium 100 mg capsule 100 mg PO BID PRN (Reason: constipation) Qty: 180 4RF cholecalciferol (vitamin D3) 25 mcg (1,000 unit) tablet 1,000 unit PO BID Qty: 180 4RF multivitamin Tablet 1 tab PO DAILY Qty: 90 4RF amitriptyline 100 mg tablet 100 mg PO QHS Qty: 90 3RF mirabegron 25 mg tablet extended release 24 hr 25 mg PO DAILY Qty: 30 11RF omeprazole 40 mg capsule,delayed release(DR/EC) 40 mg PO DAILY Qty: 90 1RF metformin 500 mg tablet,ER melissa.retention 24 hr 500 - 1,000 mg PO .bid as directed Qty: 270 2RF Rx Instructions: take 2 tablets in am and one tablet pm cyanocobalamin (vitamin B-12) 1,000 mcg capsule 1,000 mcg PO DAILY Qty: 90 2RF potassium chloride 20 mEq tablet extended release 20 meq PO . AFTERNOON Qty: 90 2RF Rx Instructions: take one tablet daily magnesium oxide 400 mg (241.3 mg magnesium) tablet 400 mg PO DAILY Qty: 132 12RF Hold Instructions: Home Medication placed on hold at Doctor's office Rx Instructions: take one tablet on Saturday,Saturday,Saturday and 2 tabs on other days gabapentin 300 mg capsule 300 mg PO DIRECTED Qty: 112 12RF Rx Instructions: 300mg am and noon; 600mg HS; magnesium hydroxide [Milk of Magnesia] 400 mg/5 mL Suspension 30 ml PO HS PRN PRN (Reason: constipation) Qty: 355 2RF Rx Instructions: Take 30 mL by mouth every night. simethicone 80 mg Tablet,Chewable 40 mg PO DAILY Qty: 60 3RF Rx Instructions: Take 1 tablet by mouth every day Discharge Instructions Instructions: Urinary Tract Infection in Women (ED) Additional Instructions: Please take antibiotics as instructed Ambulate with your walker to avoid future falls Discharge Data Discharge Date/Time-TO BE ENTERED AT DEPARTURE: 07/12/23 12:50 Medical Decision Making Emergent evaluation after a fall. Unknown downtime or mechanism of the fall. Initial differential includes mechanical fall, syncopal episode, fracture or intracranial process. Patient has no obvious signs of traumatic injury. History is unreliable due to her memory. She does have some chest wall tenderness. Plan for lab work to evaluate possible etiologies of the fall and imaging to evaluate for acute traumatic injury. 1130: Lab work reviewed. There is no leukocytosis or anemia. Her electrolytes are within normal range but her magnesium level is slightly low at 1.1. A trial of ambulation was performed. She is able to ambulate without assistance. At home she uses a walker 1150: CT imaging reviewed, no acute abnormalities. Patient has a urinary tract infection. Culture has been sent. A dose of Rocephin was given in the emergency department and she was given a prescription for Keflex to go home. Patient transportation arranged by nursing. Medical Records Medical records reviewed: Yes I reviewed the patient's medical records. Lab Data Lab results reviewed: Yes I reviewed the patient's lab results. HPI General Date/Time Provider Initiated Documentation: 07/12/23 10:06 . Limitations to Documentation: other (Absence of caregiver, memory issues) . Information obtained by: patient and EMS . HPI Narrative: 77-year-old female with past medical history of diabetes, hypertension, cognitive impairment, ambulatory impairment, presents for evaluation after a fall. It is unknown when the patient fell or why she fell. She was unable to get herself up and because it was dark she decided to wait for a while before pressing her [facility] button. On EMS arrival she was found on the floor. They were able to help her up and at that time discovered that she was complaining of right-sided rib pain. Worse with movement and palpation of the area and with deep breaths. She says that she did hit her head, unknown loss of consciousness Related Data Home Medications Medication Instructions Recorded Confirmed acetaminophen 650 mg 1,300 mg (2 x 650 mg) PO BID PRN 01/21/19 07/12/23 tablet,extended release (Tylenol pain #120 tabs Arthritis Pain) triamcinolone acetonide 0.1 % 1 applic topical BID PRN foot rash 12/28/21 07/12/23 topical cream #30 grams sodium chloride 0.65 % nasal spray 2 spray intranasal QID PRN dry 02/07/22 07/12/23 aerosol (Saline Nasal) nasal passages #88 mL estradiol 10 mcg vaginal tablet 10 mcg vaginal as directed PRN 05/09/22 07/12/23 (Vagifem) vaginal dryness #30 tabs magnesium hydroxide 400 mg/5 mL 30 ml PO HS PRN PRN constipation 08/31/22 07/12/23 oral suspension (Milk of Magnesia) #355 mL simethicone 80 mg chewable tablet 40 mg (1/2 x 80 mg) PO DAILY 08/31/22 07/12/23 gastroparesis #60 tabs calcium carbonate 600 mg-vitamin 1 tab PO BID #60 tab-caps 09/10/22 07/12/23 D3 10 mcg (400 unit) tablet (Calcium 600 + D(3)) ferrous sulfate 325 mg (65 mg 325 mg PO DAILY #90 tab-caps 09/10/22 07/12/23 iron) tablet duloxetine 30 mg capsule,delayed 30 mg PO DAILY #30 caps 09/17/22 07/12/23 release sprinkle cholecalciferol (vitamin D3) 25 1,000 unit PO BID #180 tabs 09/27/22 07/12/23 mcg (1,000 unit) tablet docusate sodium 100 mg capsule 100 mg PO BID PRN constipation 09/27/22 07/12/23 #180 caps multivitamin 1 tab PO DAILY #90 tabs 09/28/22 07/12/23 amitriptyline 100 mg tablet 100 mg PO QHS #90 tabs 11/19/22 07/12/23 mirabegron 25 mg tablet,extended 25 mg PO DAILY #30 tabs 12/14/22 07/12/23 release 24 hr omeprazole 40 mg capsule,delayed 40 mg PO DAILY #90 caps 02/11/23 07/12/23 release cyanocobalamin (vitamin B-12) 1,000 mcg PO DAILY #90 caps 03/11/23 07/12/23 1,000 mcg capsule metformin 500 mg 24 hr 500 - 1,000 mg (1 - 2 x 500 mg) PO 03/11/23 07/12/23 tablet,extended release .bid as directed #270 tabs potassium chloride 20 mEq 20 meq PO . AFTERNOON #90 tabs 03/11/23 07/12/23 tablet,extended release magnesium oxide 400 mg (241.3 mg 400 mg PO DAILY #132 tab-caps 05/07/23 07/12/23 magnesium) tablet gabapentin 300 mg capsule 300 mg PO DIRECTED #112 tab-caps 07/01/23 07/12/23 cephalexin 500 mg capsule 500 mg PO BID 5 days #10 caps 07/12/23 Previous Rx's Medication Instructions Recorded acetaminophen 650 mg 1,300 mg (2 x 650 mg) PO BID PRN 01/21/19 tablet,extended release (Tylenol pain #120 tabs Arthritis Pain) triamcinolone acetonide 0.1 % 1 applic topical BID PRN foot rash 12/28/21 topical cream #30 grams sodium chloride 0.65 % nasal spray 2 spray intranasal QID PRN dry 02/07/22 aerosol (Saline Nasal) nasal passages #88 mL estradiol 10 mcg vaginal tablet 10 mcg vaginal as directed PRN 05/09/22 (Vagifem) vaginal dryness #30 tabs magnesium hydroxide 400 mg/5 mL 30 ml PO HS PRN PRN constipation 08/31/22 oral suspension (Milk of Magnesia) #355 mL simethicone 80 mg chewable tablet 40 mg (1/2 x 80 mg) PO DAILY 08/31/22 gastroparesis #60 tabs calcium carbonate 600 mg-vitamin 1 tab PO BID #60 tab-caps 09/10/22 D3 10 mcg (400 unit) tablet (Calcium 600 + D(3)) ferrous sulfate 325 mg (65 mg 325 mg PO DAILY #90 tab-caps 09/10/22 iron) tablet duloxetine 30 mg capsule,delayed 30 mg PO DAILY #30 caps 09/17/22 release sprinkle cholecalciferol (vitamin D3) 25 1,000 unit PO BID #180 tabs 09/27/22 mcg (1,000 unit) tablet docusate sodium 100 mg capsule 100 mg PO BID PRN constipation 09/27/22 #180 caps multivitamin 1 tab PO DAILY #90 tabs 09/28/22 amitriptyline 100 mg tablet 100 mg PO QHS #90 tabs 11/19/22 mirabegron 25 mg tablet,extended 25 mg PO DAILY #30 tabs 12/14/22 release 24 hr omeprazole 40 mg capsule,delayed 40 mg PO DAILY #90 caps 02/11/23 release cyanocobalamin (vitamin B-12) 1,000 mcg PO DAILY #90 caps 03/11/23 1,000 mcg capsule metformin 500 mg 24 hr 500 - 1,000 mg (1 - 2 x 500 mg) PO 03/11/23 tablet,extended release .bid as directed #270 tabs potassium chloride 20 mEq 20 meq PO . AFTERNOON #90 tabs 03/11/23 tablet,extended release magnesium oxide 400 mg (241.3 mg 400 mg PO DAILY #132 tab-caps 05/07/23 magnesium) tablet gabapentin 300 mg capsule 300 mg PO DIRECTED #112 tab-caps 07/01/23 cephalexin 500 mg capsule 500 mg PO BID 5 days #10 caps 07/12/23 Allergies Allergy/AdvReac Type Severity Reaction Status Date / Time Penicillins Allergy Intermediate Skin Rash Unverified 07/12/23 10:04 aspirin Allergy Unverified 07/12/23 10:04 miconazole Allergy Skin Rash Unverified 07/12/23 10:04 povidone-iodine Allergy Skin Rash Unverified 07/12/23 10:04 Sulfa (Sulfonamide Allergy Skin Rash Unverified 07/12/23 10:04 Antibiotics) General Stated Complaint: Fall/Non TraumaCriteria FRANCIS: 3 PFSH All Active Problems (Updated 07/12/23 @ 12:21 by Michael Blanco MD) Fall (Acute) Acute UTI (Acute) Accidental fall from bed (Chronic) recurrent, falls frequently at home. Dupuytren's contracture of both hands (Acute) Gastroparesis (Acute) Hypoalbuminemia due to protein-calorie malnutrition (Acute) Type 2 diabetes mellitus with complication, without long-term current use of insulin (Chronic 12/02/17) Hyperlipidemia (Chronic) Vitamin D deficiency (Chronic 08/11/12) Cervical spondylosis (Chronic 02/11/14) Multiple sclerosis (Chronic) secondary progressive HTN (hypertension) (Acute) Vitamin B12 deficiency (Chronic) SHERRELL (generalized anxiety disorder) (Chronic) Depression (Chronic) Chronic low back pain (Acute) Monocular diplopia (Chronic) Mild cognitive impairment (Acute) Walker as ambulation aid (Chronic) uses in her apartment Uses wheelchair (Chronic) when out of her apartment motorized Urinary incontinence, mixed (Acute) uses adult diapers Fecal incontinence (Acute) Osteoarthritis of carpometacarpal joint of left thumb (Acute) Tobacco dependence due to cigarettes (Acute) Lung nodule, solitary (Acute) 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 Nephrolithiasis while on Topamax Anemia in chronic kidney disease SBO (small bowel obstruction) multiple; last May 2018 Osteoporosis (02/03/14) bone density scan 2013; treated with alendronate x 5 years, discontinued 02/2021 Migraine headache without aura (01/31/15) Tenosynovitis, de Quervain left sided Surgical History S/P trigger finger release Status post total right knee replacement Status post de Quervain's release surgery Hx of arthroscopy of right knee History of bowel resection H/O hemorrhoidectomy Hx of hysterectomy History of repair of hiatal hernia paproscopic repair History of cataract surgery Family History Mother , AGE 87 Diabetes Stroke Father , AGE 83 lung cancer Cancer Heart disease CABG x 4 Brother , AGE 70 motor vehicle crash Motor vehicle accident Brother Family estrangement Brother No problems noted. Daughter Family estrangement ok relationship Daughter Family estrangement emotional estrangement Social History Smoking/Tobacco Use Status: Current every day Tobacco Type: cigarettes Tobacco: How many years used: 60 Quit status: not considering quitting Second Hand Exposure: Yes Counseling given: provider counseling Smoking risk assessment performed?: Yes Alcohol Intake: never Drug use: Never Substance use type: does not use Caregiver/Support person: Yes (has terminal worker home caregiver faraz [id number]) Details: [facility] Household members: none Housing: apartment Number of Children: 2 number of grandchildren: 6 Communication Needs: Hard of Hearing and Corrective Lenses Education Level: high school Do you need help understanding health information?: Rarely 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 Pets and animals: No Sexually active: No Do you think of yourself as: straight/heterosexual Current gender identity: female What is your relationship status?: How often do you talk on the phone with friends or family?: never How often do you get together with friends or relatives?: never How often do you attend orthodoxy or restorationism services?: decline to answer Do you belong to any clubs or organized social groups?: no Panel score (0-1 are the most socially isolated patients): 0 What type of physical activity do you participate in: none Duration: < 15 minutes/day Frequency: daily Marilee/Latter-Day: Religion Special marilee needs: No Seatbelt use: always Helmet use: No Drive intox or ride w/intox driver messenger: No Working smoke detector in home: Yes Fire extinguisher in home: Yes Do you feel safe at home: Yes Do you feel safe in your relationship?: Yes Exam Narrative Exam Narrative: Review of Systems: All systems reviewed & are unremarkable except as noted in HPI and below: CONSTITUTIONAL: Alert and oriented Well-developed, no acute distress HEENT: NCAT, tender but no obvious trauma EYES: PERRL, no conjunctival injection CVS: RRR, No murmurs or gallops. Peripheral pulses 2+ and equal in all extremities Brisk capillary refill in all extremities. No peripheral edema right lateral chest wall TTP no obvious bruising, flail chest or crepitus RESP: Unlabored respiratory effort, Clear to auscultation bilaterally No wheezes rales or rhonchi GI: Soft, Nontender, Nondistended, No organomegaly MSK: Extremities with full range of motion, no deformity or TTP Pelvis stable SKIN: Warm, Dry. No rashes or lesions. NEURO: No focal neurologic deficits. benefit director II-XII grossly intact Sensation grossly intact Normal strength throughout Course Vital Signs Vital signs: Vital Signs Temperature 36.3 C L 07/12/23 09:57 Pulse 72 07/12/23 09:57 Respiratory Rate 16 07/12/23 09:57 Blood Pressure 111/63 07/12/23 09:57 Pulse Oximetry 98 07/12/23 09:57 Temperature 36.3 C L 07/12/23 09:57 Temperature Source Skin 07/12/23 09:57 Pulse 72 07/12/23 09:57 Respiratory Rate 16 07/12/23 09:57 Respiratory Effort Normal, Non-Labored 07/12/23 10:05 Blood Pressure 111/63 07/12/23 09:57 Pulse Oximetry 98 07/12/23 09:57 Oxygen Delivery Method Room Air 07/12/23 09:57 Oxygen Flow Rate 0 07/12/23 09:57 Pain Level 10 07/12/23 10:05 Comment 10 on inspiration 07/12/23 09:57
[2023-07-12 10:21] LABS: Abs Immature Grans 0.03 10^3/uL (0.0-0.06); Absolute Basophil Count 0.05 10^3/uL (0.0-0.2); Absolute Eosinophil Count 0.08 10^3/uL (0.0-0.7); Absolute Lymphocyte Count 3.13 10^3/uL (1.2-3.4); Absolute Monocyte Count 0.52 10^3/uL (0.1-0.8); Absolute Neutrophil Count 6.51 10^3/uL (1.2-6.7); Basophils % 0.5; Eosinophils % 0.8; HCT 36.1 % (36.0-46.0); HGB 12.1 g/dL (11.2-15.7); Immature Grans % 0.3; Lymphocytes % 30.3; MCH 32.3 pg (27.0-33.0); MCHC 33.5 % (32.0-36.0); MCV 96 fL (80-95); MPV 9.4 fL (8.0-11.0); Neutrophils % 63.1; Platelet Count 256 10^3/uL (130-400); RBC 3.75 10^6/uL (3.93-5.22); RDW 14.8 % (11.7-14.6); RDW-SD 52.3 fL; WBC 10.32 10^3/uL (4.4-10.8)
[2023-07-12 10:44] LABS: ALT 26 U/L (14-59); AST 26 U/L (15-37); Albumin 2.2 g/dL (3.4-5.0); Alkaline Phosphatase 148 U/L (46-116); Anion Gap 8.1 mmol/L (3-11); BUN 18 mg/dL (7-18); Bilirubin, Total 0.4 mg/dL (0.2-1.0); CO2 26.9 mmol/L (21.0-32.0); CREATININE 0.8 mg/dL (0.55-1.02); Calcium 8.8 mg/dL (8.5-10.1); Chloride 103 mmol/L (98-107); Creatine Kinase 129 U/L (26-192); Estimated GFR 75.84 (mL/min/1.73m2); Glucose 80 mg/dL (74-106); Magnesium 1.1 mg/dL (1.8-2.4); Sodium 138 mmol/L (136-145); Total Protein 5.6 g/dL (6.4-8.2); Troponin I < 50 ng/L (<or=60)
[2023-07-12] MEDS: Acetaminophen 500 MG TAB 1000 MG PO (11:10)
[2023-07-12 11:26] LABS: Bilirubin Negative (Negative); Blood Negative (Negative); Clarity Sl Cloudy (Clear); Glucose Negative (Negative); Ketones Negative (Negative); Leukocyte Esterase Moderate (Negative); Nitrite Negative (Negative); Specific Gravity >= 1.030 (1.005-1.025); Urobilinogen 0.2 mg/dL (Up to 0.2)
[2023-07-12 11:37] LABS: RBC 0-2 HPF (0-2)
[2023-07-12 11:38] LABS: Bacteria Many HPF (Negative); C & S Indicated? Yes; Casts Negative LPF (Negative); Crystals Negative HPF (Negative); Epithelial Cells Few HPF (Negative); Mucus Negative (Negative)
[2023-07-12] MEDS: cefTRIAXone 1 GM/50 ML BAG IVPB (11:53)
== END 2023-07-12 12:50 | disposition home or self-care (01) ==
PROVIDERS: Emergency Provider Emergency Medicine; PCP Family Medicine
DX: R07.81 Pleurodynia (principal); N39.0 Urinary tract infection, site not specified; B96.1 Klebsiella pneumoniae [K. pneumoniae] as the cause of diseases classified elsewhere; E11.9 Type 2 diabetes mellitus without complications; G35 Multiple sclerosis; F17.210 Nicotine dependence, cigarettes, uncomplicated; W01.0XXA Fall on same level from slipping, tripping and stumbling without subsequent striking against object, initial encounter; Y93.01 Activity, walking, marching and hiking; Y92.018 Other place in single-family (private) house as the place of occurrence of the external cause
CPT/HCPCS: 71250; 80053; 82550; 87077; 96365; 99284; 70450; 72125; 72170; 81003; 81015; 83735; 84484; 85025; 87086; 87186; J0696

== ENCOUNTER 2023-07-22 15:02 | Outpatient (CLI) | payer MEDICARE, MEDICAID, SELFPAY ==
--- NOTE | 2023-07-22 10:30 | DI.RAD_ITS ---
Exam(s) XR HAND LT COMPLETE EXAM: XR HAND LT COMPLETE CLINICAL HISTORY: left hand pain. TECHNIQUE: 2D digital imaging was performed. Three views. COMPARISON: CR XR HAND LT COMPLETE from 02/19/2022 CR XR HAND RT COMPLETE from 07/22/2023 FINDINGS: BONES: No acute fracture is present. No bony destructive lesion is seen. JOINTS: No dislocation present. No change flexion deformities of the 4th and 5th fingers. Moderate degenerative changes 1st carpal metacarpal joint. Stable adjacent bony density. Minimal degenerati ve changes of the interphalangeal joints. SOFT TISSUE: Normal. IMPRESSION: Stable flexion deformities of the 4th and 5th fingers. Stable moderate degenerative changes at the 1 st carpal metacarpal joint. DATA REPOSITORY: RADIATION DOSE DELIVERED:
--- NOTE | 2023-07-22 10:30 | DI.RAD_ITS ---
Exam(s) XR HAND RT COMPLETE EXAM: XR HAND RT COMPLETE CLINICAL HISTORY: right hand pain. TECHNIQUE: 2D digital imaging was performed. Three views. COMPARISON: CR XR HAND LT COMPLETE from 02/19/2022 FINDINGS: BONES: No acute fracture is present. No bony destructive lesion is seen. JOINTS: No dislocation present. Flexion deformity at distal interphalangeal joint of the 5th finger . Flexion deformities at the proximal interphalangeal joint of the middle finger. No significant de generative changes peer SOFT TISSUE: Normal. IMPRESSION: Flexion deformities of the middle and little fingers.. DATA REPOSITORY: RADIATION DOSE DELIVERED:
== END 2023-07-22 15:03 | disposition home or self-care (01) ==
LOC: DIORS 15:02
PROVIDERS: PCP Family Medicine; Referring Provider Family Medicine; Visit Provider Student in an Organized Health Care Education/Training Program
DX: M24.541 Contracture, right hand (principal); M24.542 Contracture, left hand
CPT/HCPCS: 99213; 73130

== ENCOUNTER 2023-07-29 18:19 | Inpatient (IN) | payer MEDICARE, MEDICAID, SELFPAY ==
[2023-07-29] VITALS (13 sets, daily range): BP systolic 129–173; BP diastolic 71–109; PULSE 70–119; RESP 13–26; TEMP 36.4–36.5; O2SAT 87–100; BMI 25.0
--- NOTE | 2023-07-29 18:30 | DI.CT_ITS ---
Exam(s) CT ABDOMEN PELVIS W EXAM: CT ABDOMEN PELVIS W CLINICAL HISTORY: severe abd pain. TECHNIQUE: Imaging Protocol: Axial computed tomography images with coronal and sagittal reformatted images were created and reviewed CONTRAST MATERIAL: Intravenous: Omnipaque-350 100cc Oral: None COMPARISON: CT CT ABDOMEN PELVIS WO from 08/24/2022 FINDINGS: VISUALIZED LUNG BASES: No nodules nor pleural effusions evident. Platelike atelectasis evident in th e lingular segment of the left lung. ABDOMEN: GI: There is evidence of previous bowel surgery. There is an NG tube in the proximal stomach. The s tomach is nevertheless distended. The duodenum is also grossly distended as are the small bowel loop s and these exhibit diameters up to 8 cm as well as pneumatosis intestinalis as well as abundant air- gas in the portal venous system including branches of the superior mesenteric vein, the superior mese nteric vein, portal vein, and all of the intrahepatic portal veins. This is an ominous sign. There is a small amount of ascites evident. There is no free intraperitoneal air at this time. There is e vidence of prior bowel surgery. Colon is not collapsed at this time. There is sigmoid diverticulosi s without evidence of acute diverticulitis. LIVER: There are no focal hepatic lesions evident. Extensive air-gas with in all of the intrahepatic portal veins. GALLBLADDER/BILIARY: No obvious gallbladder pathology. CBD is not dilated. PANCREAS: No evidence of pancreatic mass nor dilatation of the pancreatic duct. SPLEEN: Spleen is not enlarged. No obvious intrasplenic lesions. Splenic vein is patent. ADRENALS: There are masses within both adrenal glands again evident. Stable appearance. KIDNEYS:No cysts evident. No solid renal mass evident. Small calculi noted in the right kidney, nono bstructive. Ureters are not dilated.. ABDOMINAL AORTA: The abdominal aorta is heavily calcified but not enlarged. No evidence of dissectio n. Some plaque is seen at the origin of the superior mesenteric artery but no evidence of occlusion nor filling defects to suggest embolization within this vessel. Celiac artery is patent. Inferior m esenteric artery is patent. LYMPH NODES:There is no retroperitoneal nor paraaortic adenopathy. ABDOMINAL WALL: No evidence of significant anterior abdominal wall nor inguinal hernia. PELVIS: GI: No evidence of appendicitis.No evidence of sigmoid diverticulitis. LYMPH NODES: There is no intrapelvic nor inguinal adenopathy. REPRODUCTIVE: Uterus is surgically absent. No abnormal adnexal masses. URINARY BLADDER: No calculi nor obvious masses evident OSSEOUS: No fractures and no significant osseous lesions. IMPRESSION: 1. Grossly dilated duodenum and small bowel exhibiting pneumatosis intestinalis and with large amount of portal venous gas both in branches of the superior mesenteric vein as well as within the portal v ein and intrahepatic veins throughout all aspects of the liver. There is significant distension of t he duodenum and small bowel. Also small amount of ascites. High-grade bowel obstruction probably th e culprit for the bowel necrosis here. Surgical consultation recommended First read by [facility] RADIATION DOSE DELIVERED: Total DLP DATA REPOSITORY: All CT scans at this facility are submitted to the National Radiology Data Registry (NRDR) Dose Index Registry (DIR) with the [employer] (ACR). RADIATION OPTIMIZATION: All CT scans at this facility use at least one of these dose optimization te chniques: automated exposure control; mA and/or kV adjustment per patient size (includes targeted exa ms where dose is matched to clinical indication); or iterative reconstruction.
--- NOTE | 2023-07-29 19:03 | ED.GENADUL_ITS ---
Discharge Plan Disposition Patient Disposition: Admit to [facility] Condition: Serious Discharge Details Clinical Impression: Massive necrosis of intestine Admit Date/Time: 07/30/23 02:41 Admit Provider: Kelley Almeida Attending Provider: Kelley Almeida Primary Care Provider: Josy Thomas ED Provider: Sterling Yanez Medical Decision Making Patient presents by EMS with severe sudden onset of abdominal pain today. She does have history of SBO. Differentials include recurrent SBO versus perforation. NG tube will be inserted by nursing. IV established given 1 bolus of of lactated Ringer's. She is given Zofran 4 mg IV push and Dilaudid 1 mg IV push. Second IV has been established. Labs including CBC CMP lipase and lactate have been ordered. CT scan of the abdomen and pelvis with IV contrast ordered. CT scan and labs reviewed with Dr. Almeida. Patient is been given 1 g of Invanz IV piggyback in addition to Protonix 40 mg IV push repeat of antiemetic with Compazine 10 mg IV push for ongoing nausea. Her NG tube has drained approxi mately 600 cc of reddish fluid. Dilaudid 1 mg IV push repeated for ongoing abdominal pain. Limits of care and goals of care discussed with patient and patient would like surgical procedure and what ever needs to be done as I am not ready to . report and care of patient transitioned to DR Almeida, patient to OR for necrotic bowel Medical Records Medical records reviewed: Yes I reviewed the patient's medical records. Imaging Data Radiologic Study: Imaging: CT Scan Radiologist's impression: Exam(s) PROCEDURE INFORMATION: Exam: CT Abdomen And Pelvis With Contrast Exam date and time: 07/29/2023 8:19 PM Age: 77 years old Clinical indication: Abdominal pain; Generalized; Prior surgery; Surgery date: 6+ months; Surgery type: Hysterectomy, bowel resection, hiatal hernia repair; Patient HX: HX of bowel obstructions, m/s TECHNIQUE: Imaging protocol: Computed tomography of the abdomen and pelvis with contrast. Radiation optimization: All CT scans at this facility use at least one of these dose optimization techniques: automated exposure control; mA and/or kV adjustment per patient size (includes targeted exams where dose is matched to clinical indication); or iterative reconstruction. Contrast material: OMNIPAQUE 350; Contrast volume: 85 ml; Contrast route: INTRAVENOUS (IV); COMPARISON: CT ABDOMEN PELVIS WO 08/24/2022 1:53 PM FINDINGS: Liver: Large amount of portal venous gas as described below. No evidence of hepatic mass. Gallbladder and bile ducts: Normal. No calcified stones. No ductal dilation. Pancreas: Normal. No ductal dilation. Spleen: Normal. No splenomegaly. Adrenal glands: Normal. No mass. Kidneys and ureters: Normal. No hydronephrosis. Stomach and bowel: There is significant distention of the duodenal and proximal jejunum with marked small bowel pneumatosis within the distended bowel loops. Moderate amount of gas noted throughout the colon. Mid to distal small bowel loops appear normal to top-normal in caliber. Significant sigmoid diverticulosis. Appendix: No evidence of appendicitis. Intraperitoneal space: Unremarkable. No free air. No significant fluid collection. Vasculature: Large amount of venous gas noted throughout the portal vein and portal venous branches throughout the liver as well as within the splenic vein and multiple mesenteric veins leading into the portal vein. Celiac, superior mesenteric and inferior mesenteric arteries appear patent. Dense atherosclerotic calcification noted throughout the aorta and iliac arteries. No evidence of aneurysm or dissection. Lymph nodes: Unremarkable. No enlarged lymph nodes. Urinary bladder: Unremarkable as visualized. Reproductive: Uterus is surgically absent. No adnexal abnormality. Bones/joints: Unremarkable. No acute fracture. Soft tissues: Unremarkable. IMPRESSION: Findings of proximal small bowel necrosis involving the duodenal and proximal jejunum with associated large volume mesenteric/portal venous gas. Significant distention of the duodenum may reflect secondary ileus or indicate proximal small bowel obstruction as the inciting event for necrosis. THIS REPORT CONTAINS FINDINGS THAT MAY BE CRITICAL TO PATIENT CARE. The findings were verbally communicated via telephone conference with STERLING YANEZ at 9:09 PM EST on 07/29/2023. The findings were acknowledged and understood. Dictated and Authenticated by: Chuy Bailey MD. Lab Data Lab results reviewed: Yes I reviewed the patient's lab results. Lab results narrative: Laboratory Tests Range/Units 07/29/23 07/29/23 19:40 21:14 WBC (4.4-10.8) 10^3/uL 15.91 H RBC (3.93-5.22) 10^6/uL 4.12 Hgb (11.2-15.7) g/dL 13.3 Hct (36.0-46.0) % 40.8 MCV (80-95) fL 99 H MCH (27.0-33.0) pg 32.3 MCHC (32.0-36.0) % 32.6 RDW (11.7-14.6) % 15.4 H Plt Count (130-400) 10^3/uL 312 MPV (8.0-11.0) fL 9.2 Immature Gran % 0.7 Neutrophils % 75.0 Lymphocytes % 20.4 Monocytes % 3.3 Eosinophils % 0.2 Basophils % 0.4 Nucleated RBC % (0.0-0.3) % 0.0 Absolute Neutrophils (1.2-6.7) 10^3/uL 11.93 H Absolute Lymphocytes (1.2-3.4) 10^3/uL 3.25 Absolute Monocytes (0.1-0.8) 10^3/uL 0.53 Absolute Eosinophils (0.0-0.7) 10^3/uL 0.03 Absolute Basophils (0.0-0.2) 10^3/uL 0.06 VBG Lactate (0.6-1.4) mmol/L 4.8 H* Sodium (136-145) mmol/L 141 Potassium (3.5-5.1) mmol/L 3.8 Chloride (98-107) mmol/L 104 Carbon Dioxide (21.0-32.0) mmol/L 19.6 L Anion Gap (3-11) mmol/L 17.4 H BUN (7-18) mg/dL 19 H Creatinine (0.55-1.02) mg/dL 1.1 H Est GFR (CKD-EPI 2020) (mL/min/1.73m2) 51.75 Glucose (74-106) mg/dL 259 H Calcium (8.5-10.1) mg/dL 9.5 Magnesium (1.8-2.4) mg/dL 1.3 L Total Bilirubin (0.2-1.0) mg/dL 0.3 AST (15-37) U/L 32 ALT (14-59) U/L 31 Alkaline Phosphatase (46-116) U/L 172 H Total Protein (6.4-8.2) g/dL 6.3 L Albumin (3.4-5.0) g/dL 2.7 L Urine Color (Yellow) Yellow Urine Clarity (Clear) Clear Urine pH (5-8) 5.5 Ur Specific [place] (1.005-1.025) 1.010 Urine Protein (Negative) mg/dL Negative Urine Ketones (Negative) mg/dL 15 H Urine Blood (Negative) Negative Urine Nitrite (Negative) Negative Urine Bilirubin (Negative) Negative Urine Urobilinogen (Up to 0.2) mg/dL 0.2 Ur Leukocyte Esterase (Negative) Negative Urine Glucose (Negative) mg/dL 100 H HPI General Mode of arrival: EMS . Date/Time Provider Initiated Documentation: 07/29/23 18:42 . Limitations to Documentation: no limitations . Information obtained by: patient . HPI Narrative: This is a 77-year-old female patient who states she was in her usual state of health up until today when she developed upper abdominal pain. Pain progressively got worse and is very severe she called 911. Denies fever or chills no chest pain or shortness of breath does have nausea and has had dry heaving. She has a history of small bowel obstruction with enteroenterostomy approximately 1 year ago. She arrives to the emergency department by EMS in severe abdominal pain with severe abdominal distention and rigidity. Related Data Home Medications Medication Instructions Recorded Confirmed acetaminophen 650 mg 1,300 mg (2 x 650 mg) PO BID PRN 01/21/19 07/29/23 tablet,extended release (Tylenol pain #120 tabs Arthritis Pain) triamcinolone acetonide 0.1 % 1 applic topical BID PRN foot rash 12/28/21 07/29/23 topical cream #30 grams sodium chloride 0.65 % nasal spray 2 spray intranasal QID PRN dry 02/07/22 07/29/23 aerosol (Saline Nasal) nasal passages #88 mL estradiol 10 mcg vaginal tablet 10 mcg vaginal as directed PRN 05/09/22 07/29/23 (Vagifem) vaginal dryness #30 tabs magnesium hydroxide 400 mg/5 mL 30 ml PO HS PRN PRN constipation 08/31/22 07/29/23 oral suspension (Milk of Magnesia) #355 mL simethicone 80 mg chewable tablet 40 mg (1/2 x 80 mg) PO DAILY 08/31/22 07/29/23 gastroparesis #60 tabs calcium carbonate 600 mg-vitamin 1 tab PO BID #60 tab-caps 09/10/22 07/29/23 D3 10 mcg (400 unit) tablet (Calcium 600 + D(3)) ferrous sulfate 325 mg (65 mg 325 mg PO DAILY #90 tab-caps 09/10/22 07/29/23 iron) tablet duloxetine 30 mg capsule,delayed 30 mg PO DAILY #30 caps 09/17/22 07/22/23 release sprinkle cholecalciferol (vitamin D3) 25 1,000 unit PO BID #180 tabs 09/27/22 07/29/23 mcg (1,000 unit) tablet docusate sodium 100 mg capsule 100 mg PO BID PRN constipation 09/27/22 07/29/23 #180 caps amitriptyline 100 mg tablet 100 mg PO QHS #90 tabs 11/19/22 07/29/23 mirabegron 25 mg tablet,extended 25 mg PO DAILY #30 tabs 12/14/22 07/29/23 release 24 hr omeprazole 40 mg capsule,delayed 40 mg PO DAILY #90 caps 02/11/23 07/29/23 release magnesium oxide 400 mg (241.3 mg 400 mg PO DAILY #132 tab-caps 05/07/23 07/29/23 magnesium) tablet gabapentin 300 mg capsule 300 mg PO DIRECTED #112 tab-caps 07/01/23 07/29/23 cyanocobalamin (vitamin B-12) 1,000 mcg PO DAILY 07/30/23 07/30/23 1,000 mcg tablet metformin 500 mg tablet,extended 500 mg PO BID 07/30/23 07/30/23 release 24 hr multivitamin with folic acid 400 1 tab PO DAILY 07/30/23 07/30/23 mcg tablet (Daily-Alayna (with folic acid)) potassium chloride 20 mEq 20 meq PO DAILY 07/30/23 07/30/23 tablet,extended release(part/cryst) Previous Rx's Medication Instructions Recorded acetaminophen 650 mg 1,300 mg (2 x 650 mg) PO BID PRN 01/21/19 tablet,extended release (Tylenol pain #120 tabs Arthritis Pain) triamcinolone acetonide 0.1 % 1 applic topical BID PRN foot rash 12/28/21 topical cream #30 grams sodium chloride 0.65 % nasal spray 2 spray intranasal QID PRN dry 02/07/22 aerosol (Saline Nasal) nasal passages #88 mL estradiol 10 mcg vaginal tablet 10 mcg vaginal as directed PRN 05/09/22 (Vagifem) vaginal dryness #30 tabs magnesium hydroxide 400 mg/5 mL 30 ml PO HS PRN PRN constipation 08/31/22 oral suspension (Milk of Magnesia) #355 mL simethicone 80 mg chewable tablet 40 mg (1/2 x 80 mg) PO DAILY 08/31/22 gastroparesis #60 tabs calcium carbonate 600 mg-vitamin 1 tab PO BID #60 tab-caps 09/10/22 D3 10 mcg (400 unit) tablet (Calcium 600 + D(3)) ferrous sulfate 325 mg (65 mg 325 mg PO DAILY #90 tab-caps 09/10/22 iron) tablet duloxetine 30 mg capsule,delayed 30 mg PO DAILY #30 caps 09/17/22 release sprinkle cholecalciferol (vitamin D3) 25 1,000 unit PO BID #180 tabs 09/27/22 mcg (1,000 unit) tablet docusate sodium 100 mg capsule 100 mg PO BID PRN constipation 09/27/22 #180 caps amitriptyline 100 mg tablet 100 mg PO QHS #90 tabs 11/19/22 mirabegron 25 mg tablet,extended 25 mg PO DAILY #30 tabs 12/14/22 release 24 hr omeprazole 40 mg capsule,delayed 40 mg PO DAILY #90 caps 02/11/23 release magnesium oxide 400 mg (241.3 mg 400 mg PO DAILY #132 tab-caps 05/07/23 magnesium) tablet gabapentin 300 mg capsule 300 mg PO DIRECTED #112 tab-caps 07/01/23 Allergies Allergy/AdvReac Type Severity Reaction Status Date / Time Penicillins Allergy Intermediate Skin Rash Unverified 07/29/23 21:30 aspirin Allergy Unverified 07/29/23 21:30 miconazole Allergy Skin Rash Unverified 07/29/23 21:30 povidone-iodine Allergy Skin Rash Unverified 07/29/23 21:30 Sulfa (Sulfonamide Allergy Skin Rash Unverified 07/29/23 21:30 Antibiotics) General Stated Complaint: Abd Prob FRANCIS: 3 Review of Systems All systems reviewed & are unremarkable except as noted in HPI and below PFSH All Active Problems (Updated 07/30/23 @ 14:40 by Sterling Yanez NP) Massive necrosis of intestine (Acute) Comfort measures only status (Acute) Small bowel infarction (Acute) S/P exploratory laparotomy (Acute) Hemodynamic instability (Acute) Requiring blood pressure support with norepinephrine Ventricular tachycardia (paroxysmal) (Acute) Septic shock (Acute) Hypotension after procedure (Acute) Small bowel obstruction (Acute) Peritonitis (acute) generalized (Acute) Dupuytren's contracture of right hand (Acute) Dupuytren's contracture of left hand (Acute) Need for home health care (Acute) Rib pain (Acute) Fall (Acute) Acute UTI (Acute) Accidental fall from bed (Chronic) recurrent, falls frequently at home. Dupuytren's contracture of both hands (Acute) Gastroparesis (Acute) Hypoalbuminemia due to protein-calorie malnutrition (Acute) Type 2 diabetes mellitus with complication, without long-term current use of insulin (Chronic 12/02/17) Hyperlipidemia (Chronic) Vitamin D deficiency (Chronic 08/11/12) Cervical spondylosis (Chronic 02/11/14) Multiple sclerosis (Chronic) secondary progressive HTN (hypertension) (Acute) Vitamin B12 deficiency (Chronic) SEHRRELL (generalized anxiety disorder) (Chronic) Depression (Chronic) Chronic low back pain (Acute) Monocular diplopia (Chronic) Mild cognitive impairment (Acute) Walker as ambulation aid (Chronic) uses in her apartment Uses wheelchair (Chronic) when out of her apartment motorized Urinary incontinence, mixed (Acute) uses adult diapers Fecal incontinence (Acute) Osteoarthritis of carpometacarpal joint of left thumb (Acute) Tobacco dependence due to cigarettes (Acute) Lung nodule, solitary (Acute) 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 Nephrolithiasis while on Topamax Anemia in chronic kidney disease SBO (small bowel obstruction) multiple; last May 2018 Osteoporosis (02/03/14) bone density scan 2013; treated with alendronate x 5 years, discontinued 02/2021 Migraine headache without aura (01/31/15) Tenosynovitis, de Quervain left sided Surgical History S/P trigger finger release Status post total right knee replacement Status post de Quervain's release surgery Hx of arthroscopy of right knee History of bowel resection H/O hemorrhoidectomy Hx of hysterectomy History of repair of hiatal hernia paproscopic repair History of cataract surgery Family History Mother , AGE 87 Diabetes Stroke Father , AGE 83 lung cancer Cancer Heart disease CABG x 4 Brother , AGE 70 motor vehicle crash Motor vehicle accident Brother Family estrangement Brother No problems noted. Daughter Family estrangement ok relationship Daughter Family estrangement emotional estrangement Social History Smoking/Tobacco Use Status: Current every day Tobacco Type: cigarettes Tobacco: How many years used: 60 Quit status: not considering quitting Second Hand Exposure: Yes Counseling given: provider counseling Smoking risk assessment performed?: Yes Alcohol Intake: never Drug use: Never Substance use type: does not use Caregiver/Support person: Yes (has nursing home home caregiver faraz [id number]) Details: lives in [facility] Household members: none Housing: apartment Number of Children: 2 number of grandchildren: 6 Communication Needs: Hard of Hearing and Corrective Lenses Education Level: high school Do you need help understanding health information?: Rarely 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 Pets and animals: No Sexually active: No Do you think of yourself as: straight/heterosexual Current gender identity: female What is your relationship status?: How often do you talk on the phone with friends or family?: never How often do you get together with friends or relatives?: never How often do you attend christianity or oriental orthodox services?: decline to answer Do you belong to any clubs or organized social groups?: no Panel score (0-1 are the most socially isolated patients): 0 What type of physical activity do you participate in: none Duration: < 15 minutes/day Frequency: daily Marilee/Yazdanism: Christianity Special marilee needs: No Seatbelt use: always Helmet use: No Drive intox or ride w/intox [employer]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 Head is atraumatic oral mucosa is slightly dry. Neck with no distended neck veins full range of motion. Respirations are even and unlabored. Cardiovascular tachycardic regular rate and rhythm. Abdomen is severely dist ended firm/rigid. Exquisitely tender to touch. She moves all extremities neuro awake alert oriented mood and affect are normal. Course Vital Signs Vital signs: Vital Signs Temperature 36.4 C 07/29/23 18:16 Pulse 111 H 07/29/23 18:16 Respiratory Rate 20 07/29/23 18:16 Blood Pressure 129/90 07/29/23 18:16 Pulse Oximetry 97 07/29/23 18:16 Temperature 36.4 C 07/29/23 18:16 Temperature Source Temporal Artery Scan 07/29/23 18:16 Pulse 111 H 07/29/23 18:16 Respiratory Rate 20 07/29/23 18:16 Blood Pressure 129/90 07/29/23 18:16 Blood Pressure Position Sitting 07/29/23 18:16 Pulse Oximetry 97 07/29/23 18:16 Oxygen Delivery Method Room Air 07/29/23 18:16 Oxygen Flow Rate 0 07/29/23 18:16
[2023-07-29] MEDS: Ondansetron 4 MG/2 ML VIAL IVP (19:17)
[2023-07-29] MEDS: HYDROmorphone 2 MG/ML SYR 1 MG IVP ×3 (19:18→21:55)
[2023-07-29] MEDS: Lactated Ringers 1,000 ML 1000 ML IV (19:37)
[2023-07-29 19:52] LABS: Abs Immature Grans 0.11 10^3/uL (0.0-0.06); Absolute Eosinophil Count 0.03 10^3/uL (0.0-0.7); Absolute Monocyte Count 0.53 10^3/uL (0.1-0.8); Absolute Neutrophil Count 11.93 10^3/uL (1.2-6.7); Basophils % 0.4; Eosinophils % 0.2; HCT 40.8 % (36.0-46.0); HGB 13.3 g/dL (11.2-15.7); Immature Grans % 0.7; Lymphocytes % 20.4; MCH 32.3 pg (27.0-33.0); MCHC 32.6 % (32.0-36.0); MCV 99 fL (80-95); MPV 9.2 fL (8.0-11.0); Monocytes % 3.3; Platelet Count 312 10^3/uL (130-400); RBC 4.12 10^6/uL (3.93-5.22); RDW 15.4 % (11.7-14.6); RDW-SD 56.7 fL; WBC 15.91 10^3/uL (4.4-10.8)
[2023-07-29 19:53] LABS: Lactate 4.8 mmol/L (0.6-1.4)
[2023-07-29 19:54] LABS: Absolute Basophil Count 0.06 10^3/uL (0.0-0.2); Absolute Lymphocyte Count 3.25 10^3/uL (1.2-3.4)
[2023-07-29 20:07] LABS: ALT 31 U/L (14-59); AST 32 U/L (15-37); Albumin 2.7 g/dL (3.4-5.0); Alkaline Phosphatase 172 U/L (46-116); Anion Gap 17.4 mmol/L (3-11); BUN 19 mg/dL (7-18); Bilirubin, Total 0.3 mg/dL (0.2-1.0); CO2 19.6 mmol/L (21.0-32.0); CREATININE 1.1 mg/dL (0.55-1.02); Calcium 9.5 mg/dL (8.5-10.1); Chloride 104 mmol/L (98-107); Estimated GFR 51.75 (mL/min/1.73m2); Glucose 259 mg/dL (74-106); Magnesium 1.3 mg/dL (1.8-2.4); Potassium 3.8 mmol/L (3.5-5.1); Sodium 141 mmol/L (136-145); Total Protein 6.3 g/dL (6.4-8.2)
[2023-07-29] MEDS: Normal Saline - Diluent 50 ML VIAL IJ (20:13)
[2023-07-29] MEDS: Omnipaque 350 MG/ML 100 ML BTL IJ (20:16)
[2023-07-29] MEDS: Normal Saline Flush 10 ML SYR IVP (20:27)
[2023-07-29] MEDS: MAGNESIUM SULFATE 2 GM/50 ML BAG IVPB (20:57)
--- NOTE | 2023-07-29 21:10 | DI.VRAD_ITS ---
PROCEDURE INFORMATION: Exam: CT Abdomen And Pelvis With Contrast Exam date and time: 07/29/2023 8:19 PM Age: 77 years old Clinical indication: Abdominal pain; Generalized; Prior surgery; Surgery date: 6+ months; Surgery type: Hysterectomy, bowel resection, hiatal hernia repair; Patient HX: HX of bowel obstructions, m/s TECHNIQUE: Imaging protocol: Computed tomography of the abdomen and pelvis with contrast. Radiation optimization: All CT scans at this facility use at least one of these dose optimization techniques: automated exposure control; mA and/or kV adjustment per patient size (includes targeted exams where dose is matched to clinical indication); or iterative reconstruction. Contrast material: OMNIPAQUE 350; Contrast volume: 85 ml; Contrast route: INTRAVENOUS (IV); COMPARISON: CT ABDOMEN PELVIS WO 08/24/2022 1:53 PM FINDINGS: Liver: Large amount of portal venous gas as described below. No evidence of hepatic mass. Gallbladder and bile ducts: Normal. No calcified stones. No ductal dilation. Pancreas: Normal. No ductal dilation. Spleen: Normal. No splenomegaly. Adrenal glands: Normal. No mass. Kidneys and ureters: Normal. No hydronephrosis. Stomach and bowel: There is significant distention of the duodenal and proximal jejunum with marked small bowel pneumatosis within the distended bowel loops. Moderate amount of gas noted throughout the colon. Mid to distal small bowel loops appear normal to top-normal in caliber. Significant sigmoid diverticulosis. Appendix: No evidence of appendicitis. Intraperitoneal space: Unremarkable. No free air. No significant fluid collection. Vasculature: Large amount of venous gas noted throughout the portal vein and portal venous branches throughout the liver as well as within the splenic vein and multiple mesenteric veins leading into the portal vein. Celiac, superior mesenteric and inferior mesenteric arteries appear patent. Dense atherosclerotic calcification noted throughout the aorta and iliac arteries. No evidence of aneurysm or dissection. Lymph nodes: Unremarkable. No enlarged lymph nodes. Urinary bladder: Unremarkable as visualized. Reproductive: Uterus is surgically absent. No adnexal abnormality. Bones/joints: Unremarkable. No acute fracture. Soft tissues: Unremarkable. IMPRESSION: Findings of proximal small bowel necrosis involving the duodenal and proximal jejunum with associated large volume mesenteric/portal venous gas. Significant distention of the duodenum may reflect secondary ileus or indicate proximal small bowel obstruction as the inciting event for necrosis. THIS REPORT CONTAINS FINDINGS THAT MAY BE CRITICAL TO PATIENT CARE. The findings were verbally communicated via telephone conference with STERLING PHAM at 9:09 PM EST on 07/29/2023. The findings were acknowledged and understood. Dictated and Authenticated by: Chuy Bailey MD. Ordering:PHILLY Lang MD
[2023-07-29] MEDS: Pantoprazole 40 MG VIAL IVP (21:12)
[2023-07-29 21:19] LABS: Bilirubin Negative (Negative); Blood Negative (Negative); Clarity Clear (Clear); Glucose 100 mg/dL (Negative); Ketones 15 mg/dL (Negative); Leukocyte Esterase Negative (Negative); Nitrite Negative (Negative); Urobilinogen 0.2 mg/dL (Up to 0.2); pH 5.5 (5-8)
[2023-07-29] MEDS: Prochlorperazine 10 MG/2 ML VIAL IVP (21:22)
--- NOTE | 2023-07-29 21:30 | ANES.PREOP_ITS ---
General Info Date of Service Date Performed: 07/29/23 Height: 5 ft 4 in Weight: 66.3 kg Body Mass Index (BMI): 25.0 Meds Allergies and Home Medications Allergies Allergy/AdvReac Type Severity Reaction Status Date / Time Penicillins Allergy Intermediate Skin Rash Unverified 07/29/23 21:30 aspirin Allergy Unverified 07/29/23 21:30 miconazole Allergy Skin Rash Unverified 07/29/23 21:30 povidone-iodine Allergy Skin Rash Unverified 07/29/23 21:30 Sulfa (Sulfonamide Allergy Skin Rash Unverified 07/29/23 21:30 Antibiotics) Home Medication Medication Instructions Recorded acetaminophen 650 mg 1,300 mg (2 x 650 mg) PO BID PRN 01/21/19 tablet,extended release (Tylenol pain #120 tabs Arthritis Pain) triamcinolone acetonide 0.1 % 1 applic topical BID PRN foot rash 12/28/21 topical cream #30 grams sodium chloride 0.65 % nasal spray 2 spray intranasal QID PRN dry 02/07/22 aerosol (Saline Nasal) nasal passages #88 mL estradiol 10 mcg vaginal tablet 10 mcg vaginal as directed PRN 05/09/22 (Vagifem) vaginal dryness #30 tabs magnesium hydroxide 400 mg/5 mL 30 ml PO HS PRN PRN constipation 08/31/22 oral suspension (Milk of Magnesia) #355 mL simethicone 80 mg chewable tablet 40 mg (1/2 x 80 mg) PO DAILY 08/31/22 gastroparesis #60 tabs calcium carbonate 600 mg-vitamin 1 tab PO BID #60 tab-caps 09/10/22 D3 10 mcg (400 unit) tablet (Calcium 600 + D(3)) ferrous sulfate 325 mg (65 mg 325 mg PO DAILY #90 tab-caps 09/10/22 iron) tablet duloxetine 30 mg capsule,delayed 30 mg PO DAILY #30 caps 09/17/22 release sprinkle cholecalciferol (vitamin D3) 25 1,000 unit PO BID #180 tabs 09/27/22 mcg (1,000 unit) tablet docusate sodium 100 mg capsule 100 mg PO BID PRN constipation 09/27/22 #180 caps multivitamin 1 tab PO DAILY #90 tabs 09/28/22 amitriptyline 100 mg tablet 100 mg PO QHS #90 tabs 11/19/22 mirabegron 25 mg tablet,extended 25 mg PO DAILY #30 tabs 12/14/22 release 24 hr omeprazole 40 mg capsule,delayed 40 mg PO DAILY #90 caps 02/11/23 release cyanocobalamin (vitamin B-12) 1,000 mcg PO DAILY #90 caps 03/11/23 1,000 mcg capsule metformin 500 mg 24 hr 500 - 1,000 mg (1 - 2 x 500 mg) PO 03/11/23 tablet,extended release (gastric .bid as directed #270 tabs retention) potassium chloride 20 mEq 20 meq PO . AFTERNOON #90 tabs 03/11/23 tablet,extended release magnesium oxide 400 mg (241.3 mg 400 mg PO DAILY #132 tab-caps 05/07/23 magnesium) tablet gabapentin 300 mg capsule 300 mg PO DIRECTED #112 tab-caps 07/01/23 Current Visit Medications: Current Medications Generic Name Dose Route Start Last Admin Trade Name Freq PRN Reason Stop Dose Admin Hydromorphone HCl 1 mg 07/29/23 20:50 Hydromorphone 2 Mg/Ml Syr IVP Q1H PRN PRN Magnesium Sulfate 2 gm in 50 mls @ 25 mls/hr 07/29/23 20:14 07/29/23 20:57 IVPB 07/29/23 22:13 25 mls/hr NOW ONE Administration Ringer's Solution 1,000 mls @ 100 mls/hr 07/29/23 21:15 IV INFUSION EMMA Ertapenem/Sodium Chloride 1 gm 50 mls @ 100 mls/hr 07/29/23 21:08 / Sodium Chloride IVPB 07/29/23 21:37 NOW ONE IV Miscellaneous Supplies 1 each 07/29/23 18:45 Iv Access-Emergency Dept IV DIRECTED EMMA Iohexol 100 ml 07/29/23 20:15 07/29/23 20:16 Omnipaque 350 Mg/Ml 100 Ml Btl IJ 08/28/23 23:59 85 ml DIRECTED EMMA Administration Sodium Chloride 0 ml 07/29/23 18:44 Normal Saline Flush 10 Ml Syr IVP PRN PRN Sodium Chloride 0 ml 07/29/23 20:00 07/29/23 20:27 Normal Saline Flush 10 Ml Syr IVP 10 ml BID EMMA Administration Sodium Chloride 0 ml 07/29/23 18:44 Normal Saline 10 Ml Vial IJ DIRECTED PRN Sodium Chloride 50 ml 07/29/23 20:15 07/29/23 20:13 Normal Saline - Diluent 50 Ml Vial IJ 50 ml .FOR DI USE EMMA Administration PFSH Active Problems Active Problems: Problem Status Onset Code Dupuytren's contracture of right hand M72.0 Dupuytren's contracture of left hand M72.0 Need for home health care Z74.2 Rib pain R07.81 Fall W19.XXXA Acute UTI N39.0 Accidental fall from bed W06.XXXA Dupuytren's contracture of both hands M72.0 Gastroparesis K31.84 Hypoalbuminemia due to protein-calorie malnutrition E88.09, E46 Type 2 diabetes mellitus with complication, without long-term current use of insulin 12/02/17 E11.8 Hyperlipidemia E78.5 Vitamin D deficiency 08/11/12 E55.9 Cervical spondylosis 02/11/14 M47.812 Multiple sclerosis G35 HTN (hypertension) I10 Vitamin B12 deficiency E53.8 SHERRELL (generalized anxiety disorder) F41.1 Depression F32.9 Chronic low back pain M54.5, G89.29 Monocular diplopia H53.2 Mild cognitive impairment G31.84 Walker as ambulation aid Z99.89 Uses wheelchair Z99.3 Urinary incontinence, mixed N39.46 Fecal incontinence R15.9 Osteoarthritis of carpometacarpal joint of left thumb M18.12 Tobacco dependence due to cigarettes F17.210 Lung nodule, solitary R91.1 Medical History Medical History Small bowel obstruction Diverticulosis Palliative care patient Had one visit with Palliative care clinic - follow up pending. Nephrolithiasis while on Topamax Anemia in chronic kidney disease SBO (small bowel obstruction) multiple; last May 2018 Osteoporosis (02/03/14) bone density scan 2013; treated with alendronate x 5 years, discontinued 02/2021 Migraine headache without aura (01/31/15) Tenosynovitis, de Quervain left sided Surgical History Surgical History S/P trigger finger release Status post total right knee replacement Status post de Quervain's release surgery Hx of arthroscopy of right knee History of bowel resection H/O hemorrhoidectomy Hx of hysterectomy History of repair of hiatal hernia paproscopic repair History of cataract surgery Tobacco Smoking/Tobacco Use Status: Current every day Tobacco Type: cigarettes Passive smoking exposure: Yes Second hand exposure: Yes Counseling given: provider counseling Alcohol Alcohol Intake: never Substance Use Substance use: Never Substance use type: does not use Vital Signs and Lab Results Vital Signs Most Recent Vital Signs in EMR: Most Recent Vital Signs Temp Pulse Resp BP Pulse Ox 36.4 C 105 H 26 H 173/109 H 100 07/29/23 18:16 07/29/23 21:16 07/29/23 21:16 07/29/23 21:16 07/29/23 21:16 Lab Results 07/29/23 19:40 07/29/23 19:40 Blood Type / Crossmatch: 2 No Data to Display Complete Blood Count: 2 White Blood Count 15.91 10^3/uL (4.4-10.8) H 07/29/23 19:40 Red Blood Count 4.12 10^6/uL (3.93-5.22) 07/29/23 19:40 Hemoglobin 13.3 g/dL (11.2-15.7) 07/29/23 19:40 Hematocrit 40.8 % (36.0-46.0) 07/29/23 19:40 Platelet Count 312 10^3/uL (130-400) 07/29/23 19:40 Venous Blood Lactate 4.8 mmol/L (0.6-1.4) H* 07/29/23 19:40 Complete Metabolic Panel: 2 Sodium 141 mmol/L (136-145) 07/29/23 19:40 Potassium 3.8 mmol/L (3.5-5.1) 07/29/23 19:40 Chloride 104 mmol/L (98-107) 07/29/23 19:40 Carbon Dioxide 19.6 mmol/L (21.0-32.0) L 07/29/23 19:40 BUN 19 mg/dL (7-18) H 07/29/23 19:40 Creatinine 1.1 mg/dL (0.55-1.02) H 07/29/23 19:40 Est GFR (CKD-EPI 2021) 51.75 (mL/min/1.73m2) 07/29/23 19:40 Magnesium 1.3 mg/dL (1.8-2.4) L 07/29/23 19:40 Calcium 9.5 mg/dL (8.5-10.1) 07/29/23 19:40 Albumin 2.7 g/dL (3.4-5.0) L 07/29/23 19:40 Glucose 259 mg/dL (74-106) H 07/29/23 19:40 Liver Function Panel: 2 Alanine Aminotransferase (ALT/SGPT) 31 U/L (14-59) 07/29/23 19: 40 Aspartate Amino Transf (AST/SGOT) 32 U/L (15-37) 07/29/23 19:40 Coagulation Panel: 2 No Data to Display Cardiac Panel: 2 Troponin I < 50 ng/L (<or=60) 07/12/23 Creatine Kinase 129 U/L (26-192) 07/12/23 Arterial Blood Gas: 2 No Data to Display Venous Blood Gas: 2 No Data to Display Pancreas Panel: 2 No Data to Display Thyroid Panel: 2 No Data to Display Infectious Disease: 2 No Data to Display Blood Cultures: 2 No Data to Display Toxicology Panel: 2 No Data to Display Imaging and Studies Imaging and Studies Study information below may be from another EMR and interpreted by another provider. Please see original notes in EMR for more complete details. EKG Summary: Conclusion Sinus rhythm...normal P axis, V-rate 60- 99 Probable left atrial enlargement...P >50mS, <-0.10mV V1. Sinus. Normal axis. No STEMI. I have reviewed and interpreted ECG and agree with software generated interpretation. I have reviewed and I agree with the emergency room physician's ECG interpretation. 08/02/22 Anesthesia Assessment and Plan Anesthesia History Personal History: No History of Anesthesia Complications Family History: No Family History of Anesthesia Complications Exercise Tolerance Exercise Tolerance: Metabolic Equivalents<4 Pertinent Negatives Pertinent Negatives: No Symptoms of GERD Cardiac & Pulmonary Exam Cardiac Exam: Normal S1/S2 Heart Sounds Pulmonary Exam: Clear Bilateral Breath Sounds Implantable Cardiac Device Does patient have a Pacemaker or an ICD?: No Airway Exam Known Difficult Airway: No Mallampati Class: 3 Mouth Opening: Normal (> 3cm) Thyromental Distance: Greater than 3 cm Neck Range of Motion: Full ROM Neck Circumference: Normal Teeth Condition: Edentulous ASA Classification ASA Score: ASA 4 Emergency Case?: Yes NPO Status NPO Status: NPO Clears >2 hours, Solids >8 hours Anesthesia Plan Resuscitation Status: Full Code Anesthesia Technique: General Anesthesia (RSI) Airway Planned: Endotracheal Tube Pain Management: Surgeon and patient request nerve block Monitors Used: Standard Monitors, Arterial Line (as necessary. ) and SedLine Preoperative Comments:: Per Dr. Almeida, patient with free air in liver. Patient highly sick, discussed significant risk with the patient and wishes to proceed today. Patient does want to be a full code. I plan on doing a bilateral TAPs at the end of the procedure.
[2023-07-29] MEDS: ERTAPENEM 1 GM in Normal Saline 50 ML IVPB (21:35)
[2023-07-29] MEDS: Lactated Ringers 1,000 ML 100 ML IV (21:55)
[2023-07-29 22:23] LABS: Procalcitonin < 0.1 ng/mL
--- NOTE | 2023-07-29 22:24 | W.PM.HP.N ---
Date of service: 07/29/23 Time of Service: 22:24 Assessment and Plan Assessment and plan (1) Peritonitis (acute) generalized: Status: Acute Assessment and plan: -invanz Patient will be taken for exploratory surgery. Possible bowel resection. Possible repair of perforated duodenal ulcer. Possible colostomy. Patient understands that she may be on prolonged mechanical ventilation. She is at high risk for having complications from anesthesia. Patient does not wish to proceed with surgery. She is consented to a blood transfusion. Patient has no close family. Her close friend is her neighbor Gail Jain and Vinod at the office if emergency should arise. The patient was not aware of their phone numbers. It is not clear at this time who her POA for medical decision making would be. (2) Small bowel obstruction: Status: Acute (3) Hypoalbuminemia due to protein-calorie malnutrition: Status: Acute (4) Type 2 diabetes mellitus with complication, without long-term current use of insulin: Status: Chronic (5) SHERRELL (generalized anxiety disorder): Status: Chronic (6) HTN (hypertension): Status: Acute Qualifiers: Hypertension type: primary hypertension Qualified Code(s): I10 - Essential (primary) hypertension (7) Multiple sclerosis: Status: Chronic (8) Osteoarthritis of carpometacarpal joint of left thumb: Status: Acute Qualifiers: Osteoarthritis type: primary Qualified Code(s): M18.12 - Unilateral primary osteoarthritis of first carpometacarpal joint, left hand (9) Fecal incontinence: Status: Acute (10) Tobacco dependence due to cigarettes: Status: Acute (11) Diverticulosis: (12) History of repair of hiatal hernia: (13) Hx of hysterectomy: History of Present Illness Narrative: Patient is a 77-year-old female who presents to the emergency room with acute peritonitis. She has a history of a bowel obstruction that resulted in a small bowel resection in 08/02. She presents to the ER today with severe abdominal pain, nausea and vomiting and diarrhea. She has had chronic diarrhea since her previous resection. Patient states she has been feeling ill for approximately the last 24 to 48 hours. She night denies any trauma or injury. It is unclear when she had her last bowel movement. She presented to the ER with unrelenting abdominal pain. CT and labs are reviewed. She has never had a heart attack or stroke. She is diabetic. She does not check her blood sugars. She takes metformin. CT shows that there is air in the bowel wall of the stomach/small bowel/colon and the liver. There appears to be some type of abdominal TRAUMA catastrophe that has occurred. She will most likely need some type of stoma. The abdomen is severely distended. There is a high possibility for requiring an open abdomen. She is a high risk for prolonged mechanical ventilation because of her history of COPD (she does still smoke). He had no problems with anesthesia in her last surgery and did recover well enough to the point that she was able to go back to independent living. She does not want to be full code for the surgery and she does want to have all life-saving measures done. We did discuss what she could expect during surgery and the risks and benefits of surgery. Patient was also given the option of not doing surgery and continuing with antibiotics and comfort care measures only. Patient does not want to choose this option Informed consent is obtained for the procedural (explained in simple layman's terms that the pt and/or family could understand) explaining risks vs benefits and alternatives to the procedure and consequences if we do not do the procedure. Risks include but are not limited to: bleeding, infections, pneumonia, blood clots/DVT/PE, anesthesia (aspiration, damage to teeth/airway/LA/CVA//prolonged mechanical ventilation/PTX/IV infections), damage to bowel, bladder, blood vessels, ureters, bile ducts. Damage to solid organs requiring removal. Leakage from anastomosis requiring colostomy/ Wound infections requiring further surgery. Loss of function of limb/ext. (motor or sensory). ?Scarring and disfigurement. Subsequent bowel obstructions from scar tissue.? Chronic pain or numbness from the incision, or hernia. Review of Systems Unobtainable due to mental status [facility] All Active Problems (Updated 07/29/23 @ 22:25 by Kelley Almeida DO) Small bowel obstruction (Acute) Peritonitis (acute) generalized (Acute) Dupuytren's contracture of right hand (Acute) Dupuytren's contracture of left hand (Acute) Need for home health care (Acute) Rib pain (Acute) Fall (Acute) Acute UTI (Acute) Accidental fall from bed (Chronic) recurrent, falls frequently at home. Dupuytren's contracture of both hands (Acute) Gastroparesis (Acute) Hypoalbuminemia due to protein-calorie malnutrition (Acute) Type 2 diabetes mellitus with complication, without long-term current use of insulin (Chronic 12/02/17) Hyperlipidemia (Chronic) Vitamin D deficiency (Chronic 08/11/12) Cervical spondylosis (Chronic 02/11/14) Multiple sclerosis (Chronic) secondary progressive HTN (hypertension) (Acute) Vitamin B12 deficiency (Chronic) SHERRELL (generalized anxiety disorder) (Chronic) Depression (Chronic) Chronic low back pain (Acute) Monocular diplopia (Chronic) Mild cognitive impairment (Acute) Walker as ambulation aid (Chronic) uses in her apartment Uses wheelchair (Chronic) when out of her apartment motorized Urinary incontinence, mixed (Acute) uses adult diapers Fecal incontinence (Acute) Osteoarthritis of carpometacarpal joint of left thumb (Acute) Tobacco dependence due to cigarettes (Acute) Lung nodule, solitary (Acute) 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 Nephrolithiasis while on Topamax Anemia in chronic kidney disease SBO (small bowel obstruction) multiple; last May 2018 Osteoporosis (02/03/14) bone density scan 2013; treated with alendronate x 5 years, discontinued 02/2021 Migraine headache without aura (01/31/15) Tenosynovitis, de Quervain left sided Surgical History S/P trigger finger release Status post total right knee replacement Status post de Quervain's release surgery Hx of arthroscopy of right knee History of bowel resection H/O hemorrhoidectomy Hx of hysterectomy History of repair of hiatal hernia paproscopic repair History of cataract surgery Family History Mother , AGE 87 Diabetes Stroke Father , AGE 83 lung cancer Cancer Heart disease CABG x 4 Brother , AGE 70 motor vehicle crash Motor vehicle accident Brother Family estrangement Brother No problems noted. Daughter Family estrangement ok relationship Daughter Family estrangement emotional estrangement Social History Smoking/Tobacco Use Status: Current every day Tobacco Type: cigarettes Tobacco: How many years used: 60 Quit status: not considering quitting Second Hand Exposure: Yes Counseling given: provider counseling Smoking risk assessment performed?: Yes Alcohol Intake: never Drug use: Never Substance use type: does not use Caregiver/Support person: Yes (has terminal system operator home caregiver faraz [email or web address]) Details: lives in [facility] Household members: none Housing: apartment Number of Children: 2 number of grandchildren: 6 Communication Needs: Hard of Hearing and Corrective Lenses Education Level: high school Do you need help understanding health information?: Rarely 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 Pets and animals: No Sexually active: No Do you think of yourself as: straight/heterosexual Current gender identity: female What is your relationship status?: How often do you talk on the phone with friends or family?: never How often do you get together with friends or relatives?: never How often do you attend anabaptist or muslim services?: decline to answer Do you belong to any clubs or organized social groups?: no Panel score (0-1 are the most socially isolated patients): 0 What type of physical activity do you participate in: none Duration: < 15 minutes/day Frequency: daily Marilee/Synagogue: Hindu Special marilee needs: No Seatbelt use: always Helmet use: No Drive intox or ride w/intox tier truck driver: No Working smoke detector in home: Yes Fire extinguisher in home: Yes Do you feel safe at home: Yes Do you feel safe in your relationship?: Yes Meds Allergies and Home Medications Allergies Allergy/AdvReac Type Severity Reaction Status Date / Time Penicillins Allergy Intermediate Skin Rash Unverified 07/29/23 21:30 aspirin Allergy Unverified 07/29/23 21:30 miconazole Allergy Skin Rash Unverified 07/29/23 21:30 povidone-iodine Allergy Skin Rash Unverified 07/29/23 21:30 Sulfa (Sulfonamide Allergy Skin Rash Unverified 07/29/23 21:30 Antibiotics) Home Medications Medication Instructions Recorded Confirmed Type acetaminophen 650 mg 1,300 mg (2 x 650 mg) PO BID PRN 01/21/19 07/29/23 Rx tablet,extended release (Tylenol pain #120 tabs Arthritis Pain) triamcinolone acetonide 0.1 % 1 applic topical BID PRN foot rash 12/28/21 07/29/23 Rx topical cream #30 grams sodium chloride 0.65 % nasal spray 2 spray intranasal QID PRN dry 02/07/22 07/29/23 Rx aerosol (Saline Nasal) nasal passages #88 mL estradiol 10 mcg vaginal tablet 10 mcg vaginal as directed PRN 05/09/22 07/29/23 Rx (Vagifem) vaginal dryness #30 tabs magnesium hydroxide 400 mg/5 mL 30 ml PO HS PRN PRN constipation 08/31/22 07/29/23 Rx oral suspension (Milk of Magnesia) #355 mL simethicone 80 mg chewable tablet 40 mg (1/2 x 80 mg) PO DAILY 08/31/22 07/29/23 Rx gastroparesis #60 tabs calcium carbonate 600 mg-vitamin 1 tab PO BID #60 tab-caps 09/10/22 07/29/23 Rx D3 10 mcg (400 unit) tablet (Calcium 600 + D(3)) ferrous sulfate 325 mg (65 mg 325 mg PO DAILY #90 tab-caps 09/10/22 07/29/23 Rx iron) tablet duloxetine 30 mg capsule,delayed 30 mg PO DAILY #30 caps 09/17/22 07/22/23 Rx release sprinkle cholecalciferol (vitamin D3) 25 1,000 unit PO BID #180 tabs 09/27/22 07/29/23 Rx mcg (1,000 unit) tablet docusate sodium 100 mg capsule 100 mg PO BID PRN constipation 09/27/22 07/29/23 Rx #180 caps multivitamin 1 tab PO DAILY #90 tabs 09/28/22 07/29/23 Rx amitriptyline 100 mg tablet 100 mg PO QHS #90 tabs 11/19/22 07/29/23 Rx mirabegron 25 mg tablet,extended 25 mg PO DAILY #30 tabs 12/14/22 07/29/23 Rx release 24 hr omeprazole 40 mg capsule,delayed 40 mg PO DAILY #90 caps 02/11/23 07/29/23 Rx release cyanocobalamin (vitamin B-12) 1,000 mcg PO DAILY #90 caps 03/11/23 07/29/23 Rx 1,000 mcg capsule metformin 500 mg 24 hr 500 - 1,000 mg (1 - 2 x 500 mg) PO 03/11/23 07/29/23 Rx tablet,extended release (gastric .bid as directed #270 tabs retention) potassium chloride 20 mEq 20 meq PO . AFTERNOON #90 tabs 03/11/23 07/29/23 Rx tablet,extended release magnesium oxide 400 mg (241.3 mg 400 mg PO DAILY #132 tab-caps 05/07/23 07/29/23 Rx magnesium) tablet gabapentin 300 mg capsule 300 mg PO DIRECTED #112 tab-caps 07/01/23 07/29/23 Rx Exam Narrative Exam Narrative: PHYSICAL EXAM GENERAL APPEARANCE: Alert, healthy appearance, oriented, x 3,? in no acute distress HYDRATION: Well hydrated HEAD, EYES, EARS, NECK, THROAT: Head is normocephalic, pupils equal, round, reactive to light and accommodation, ocular movement intact, sclera clear and no jaundice. ?Dentition-poor LUNGS: normal respiration/normal chest excursion. ?Clear to auscultation bilaterally. ?No wheeze. ?HEART: Regular rate and rhythm. no murmurs ABDOMEN: severe distention. +rebound/guarding. No hernias.? Results Labs 07/29/23 19:40 07/29/23 19:40 Labs: Laboratory Results - last 24 hr 07/29/23 07/29/23 07/29/23 19:40 21:14 21:45 WBC 15.91 H RBC 4.12 Hgb 13.3 Hct 40.8 MCV 99 H MCH 32.3 MCHC 32.6 RDW 15.4 H Plt Count 312 MPV 9.2 Immature Gran % 0.7 Neutrophils % 75.0 Lymphocytes % 20.4 Monocytes % 3.3 Eosinophils % 0.2 Basophils % 0.4 Nucleated RBC % 0.0 Absolute Neutrophils 11.93 H Absolute Lymphocytes 3.25 Absolute Monocytes 0.53 Absolute Eosinophils 0.03 Absolute Basophils 0.06 VBG Lactate 4.8 H* Sodium 141 Potassium 3.8 Chloride 104 Carbon Dioxide 19.6 L Anion Gap 17.4 H BUN 19 H Creatinine 1.1 H Est GFR (CKD-EPI 2020) 51.75 Glucose 259 H Calcium 9.5 Magnesium 1.3 L Total Bilirubin 0.3 AST 32 ALT 31 Alkaline Phosphatase 172 H Total Protein 6.3 L Albumin 2.7 L Procalcitonin < 0.1 Urine Color Yellow Urine Clarity Clear Urine pH 5.5 Ur Specific [place] 1.010 Urine Protein Negative Urine Ketones 15 H Urine Blood Negative Urine Nitrite Negative Urine Bilirubin Negative Urine Urobilinogen 0.2 Ur Leukocyte Esterase Negative Urine Glucose 100 H Last Vital Signs Temp 36.4 C 07/29/23 18:16 Pulse 105 H 07/29/23 21:16 Resp 26 H 07/29/23 21:16 BP 173/109 H 07/29/23 21:16 Pulse Ox 100 07/29/23 21:16 Time Spent Time spent with Patient: >75 minutes Time was spent: preparing to see the patient(eg.review tests), obtaining and/or reviewing separately otained hiistory, ordering medications,tests, procedures, referring, communicating with other health chiropractic care, indepentently interpreting results, counseling the patient and care coordination
[2023-07-29] MEDS: Lactated Ringers 1,000 ML 30 ML IV (22:48)
--- NOTE | 2023-07-29 23:34 | W.ANESVAS ---
Arterial Line Placement Date Performed: 07/29/23 Procedure Time: 23:14 Procedure Location: Operating Room Requesting Provider: Kelley Almeida Timeout Performed: Yes Sedation Given (Indicate Dose Given): No Sedation given Patient Mental Status: Performed under general anesthesia Sterility: Hand Hygiene, Surgical Cap, Surgical Mask, Sterile Gloves and Chlorhexidine Laterality: Left Insertion Site: Radial Arterial Line Catheter: 20G Arrow Arterial Line Procedure: Vessel accessed with catheter over needle, Guidewire placed with ease, Catheter placed without resistance and Guidewire removed Dressing: Tegaderm Applied Ultrasound: Sterile probe cover and gel used Ultrasound Image Saved?: Yes Number of Attempts (See previous attempts in note section): 1 Procedure Tolerated: No Complications and Patient tolerated well Procedure Outcome: Successful Procedure Comment:: SPO2 pleth on ipsilateral side: Performed By: Emanuel Pearson
[2023-07-30] VITALS (50 sets, daily range): BP systolic 86–121; BP diastolic 56–71; PULSE 112–136; RESP 3–19; TEMP 36–36.5; TEMPC 36; O2SAT 93–99
--- NOTE | 2023-07-30 01:12 | W.ANESVAS ---
Midline Placement Date Performed: 07/30/23 Procedure Time: 01:07 Requesting Provider: Kelley Almeida Procedure Location: Operating Room Sedation Given (Indicate Dose Given): No Sedation given Patient Mental Status: Performed under general anesthesia Sterility: Hand Hygiene, Surgical Cap, Surgical Mask, Sterile Gloves and Chlorhexidine Laterality: Left Insertion Site: Basilic Midline Device: PowerGlide Pro 18G Catheter Length: 10 cm Midline Procedure Procedure: Vessel accessed with catheter over needle, Guidewire placed with ease, Catheter placed without resistance and Guidewire removed Dressing: Tegaderm Applied and Statlock Applied Blood Return: Present Flushes: Easily Ultrasound: Sterile probe cover and gel used Ultrasound Image Saved?: Yes Number of Attempts (See previous attempts in note section): 1 Procedure Tolerated: No Complications Procedure Outcome: Successful Procedure Comment:: Opened to air momentarily: nonpulsatile Performed By: Emanuel Pearson
[2023-07-30] MEDS: Lactated Ringers 1,000 ML 30 ML IV (01:49)
--- NOTE | 2023-07-30 02:31 | ROE_ITS ---
Date of service: 07/30/23 Time of Service: 02:32 Operative Note Operative Note DATE OF PROCEDURE: 07/30/23 PRE-OP DIAGNOSIS: Peritonitis/bowel ischemia POST-OP DIAGNOSIS: other (Duodenal ischemia secondary to bowel obstruction) PROCEDURE: Exploratory laparotomy?lysis of adhesions, diverting colostomy and mucous fistula SURGEON: Kelley Almeida COSTUME DRAPER: Kelley Swartz ANESTHESIA TYPE: General LMA/ETT and Primary Nerve Block Refer to Anesthesia Record ESTIMATED BLOOD LOSS: 150 PATHOLOGY: none sent COMPLICATIONS: None Patient was transported to: ICU Patient's condition: critical Procedure Description: 18 guage midline L Basillic midline catheter was placed by anesthesia A line was placed by anesthesia Patient is a 77-year-old female who presented to the ER with 24 hours of abdominal pain and acute peritonitis. CT [facility] Per the CT and physical findings I suspect that there is bowel necrosis and some sort of abdominal catastrophe. She does not have free air currently. However CT is indicative of some type of ischemic process. Patient will be taken for exploratory laparotomy. She is extremely high mortality and this was communicated to her. However if we do not attempt surgery her mentality would be 100%. Patient was given the option of comfort cares only. She does wish to proceed with surgery. She does rescind her DNR and DNI for surgery/wants everything done to an attempt to save her life. Informed consent is obtained for the procedural (explained in simple layman's terms that the pt and/or family could understand) explaining risks vs benefits and alternatives to the procedure and consequences if we do not do the procedure. Risks include but are not limited to: bleeding, infections, pneumonia, blood clots/DVT/PE, anesthesia (aspiration, damage to teeth/airway/PA/CVA//prolonged mechanical ventilation/PTX/IV infections), damage to bowel, bladder, blood vessels, .ureters, . Damage to solid organs requiring removal. Leakage from anastomosis requiring colostomy/ Wound infections requiring further surgery. ?Scarring and disfigurement. Subsequent bowel obstructions from scar tissue.? Chronic pain or numbness from the incision, or hernia. Possible open abdomen/need for prolonged mechanical ventilation/need for repeat surgery. She is at high risk for complications from anesthesia. She does consent to blood products A-line and central line. Pt has an extremely high risk for mortality from this procedure. Patient was brought to the operative room suite and placed in the supine position. Anesthesia was administered per the department of anesthesia. The abdomen was prepped and draped in the usual sterile fashion. A midline laparotomy incision was made with a #10 blade scalpel and subcutaneous tissues were with electrocautery down to the anterior abdominal fascia. Once divided, the intraabdominal cavity was accessed and bowel was protected as the rest of the abdominal wall was opened in the midline, through the previous incision. Minimal fluid was seen upon entering the abdomen, ascites fluid, which was clear straw-colored and this was sampled for cultures. Upon entering the abdomen, it is noted that the colon is grossly dilated. Somewhere between 12 to 14 cm. She has dense adhesions of the small bowel up to the anterior abdominal wall, the lateral sidewalls, up to the stomach in the left upper quadrant, to the colon and back to itself. There was a scant amount of free air upon entering the abdomen. The Omni retractor system was placed to aid in retraction next, I spent 2 hours lysing adhesions and in attempts to identify structures and mobilize the right and left colon. I was able to enter into the lesser sac behind the stomach. The stomach is grossly distended but both anterior and posterior stomach are pink and viable. There is no signs of any bleeding or perforation. Upon tracing the duodenum to its origins, the second and third portions of the duodenum are black/ischemic. There is no signs of any active bleeding. This area of the bowel was milked and did not have any extravasation of gastric contents. There is no sign of gastric contents upon entering the abdomen, the lesser sac, or along the colonic gutters. I am able to identify the ligament of Treitz and traced the jejunum for approximately 10 cm before it becomes involved in the obstruction. The colon is densely adhered to the lateral sidewalls. There are minimal planes noted. The small bowel is adhered back to itself up onto the stomach in the left upper quadrant and up onto the colon at the splenic flexure. The transverse colon is intimately adhered up to the a loop of sigmoid colon. I was able to free the transverse from the sigmoid colon.. The sigmoid colon is adhered back down into the pelvis to the rectum. I am not able to free the sigmoid from the rectum. The sigmoid colon is also adhered to the right colon. I am not able to develop the plane and takedown this adhesion. The small bowel is also intimately adhered to the sigmoid colon. And I am not able to develop any planes in this area. 2 small bowel enterotomies are created in attempting to lyse the adhesions. These were oversewn in 2 layers with 4-0 Vicryl. A serosal injury/nonfull-thickness occurred in the rectum. This was oversewn with 4-0 Vicryl. At this point it became clear that I am not going to be able to take down all the adhesions within the small bowel and the colon. The enterotomy that was created in the small intestine was used to decompress the intestine stomach and colon. Approximately 500 cc of an enteric contents is removed. There is no sign of any bleeding. Again this enterotomy was oversewn in 2 layers with 4-0 Vicryl. At this point due to the necrosis of the duodenum she would require resection of the duodenum, specifically where the bile ducts entered. She would also require reimplantation in a gastrojejunostomy. Patient does not have any further small bowel to create a G-J anastomosis. It was decided to do a decompression diversion with the colon in hopes that this will relieve pressure on the duodenum and allow for blood flow to recur in the duodenum. There is no sign of gross perforation in the duodenum. I am able to identify enough of the right colon to divide the right colon at the mid right colon. Colostomy loop is brought up on the right side of the abdomen. A mucous fistula is brought up on the left side of the abdomen. two 19 mm drains are placed 1 in each colonic gutter and brought out through a separate stab incision and sewn in place with 2-0 Prolene. Each of the limbs of the small bowel was brought out through a circular skin incision, and through the rectus muscle. Next, the abdominal wall was reapproximated and the fascial layer using a running loop PDS sutures meeting in the middle with good approximation of both the abdominal fascia. Blood pressure was not affected by closing of the fascia. Additional sterile saline was used to irrigate the subcutaneous fat and then the skin was closed loosely with sterile truman. The ostomies are created in standard fashion with 3-0 Vicryl at the 4 Compose points and maturing the stoma with 4-0 Vicryl Sterile dressing was applied and the skin was cleansed and dressings applied. the patient was extubated in the Operating Room and she was transferred to ICU in condition and will be continued to be monitored. She will continue to receive Invanz and NANDINI valera smith. She has been placed on Protonix and Lovenox. She is still requiring norepinephrine for blood pressure support. she had no Cardiac concerns during the course of the case, other than hypotension. THe pt is transferred to the ICU in critical condition.
--- NOTE | 2023-07-30 03:24 | W.ANESPOSTOP ---
Postoperative Evaluation Date, Time and Location Date Performed: 07/30/23 Time Performed: 03:24 Patient Location: Intensive Care Unit Vital Signs Most Recent Imported Vital Signs: Most Recent Vital Signs Temp Pulse Resp BP Pulse Ox 36.4 C 116 H 13 142/86 H 94 07/29/23 18:16 07/29/23 22:15 07/29/23 22:20 07/29/23 22:15 07/29/23 22:15 Most Recent Manually Entered Vital Signs: Adult Blood Pressure: 96/59 Heart Rate: 119 Respirations: 14 Oxygen Saturation (%): 96 Temperature (C): 36 C Pain Score (0-10 Scale): 0 Pain Score Most Recent Pain Score: Most Recent Pain Score Pain Level 9 07/29/23 21:55 Assessment Mental Status: Arousable with meaningful communication Airway and Respiratory Function: Patent airway with normal (patient baseline) respiratory exam Cardiovascular Function: Hemodynamically Unstable (See Explanation) (Patient remains on levophed 8mcg/min in ICU care) Hydration Status: Volume Depleted (See Note) (Patient remains on levophed 8mcg/min in ICU care) Nausea & Vomiting: No Nausea or Vomiting Pain: Pt. Denies Any Pain Peripheral Nerve Block: Regional nerve block not resolved at time of post operative discharge
--- NOTE | 2023-07-30 03:28 | W.ANESNERVE ---
Nerve Block Single Injection Procedure Date and Time Date Performed: 07/30/23 Procedure Start: Location Where Procedure Performed Procedure Location: Operating Room Procedure Stop: Reason Performed: Postoperative Analgesia Requesting Provider: Kelley Almeida Timeout Performed Timeout Performed: Yes Monitoring Used ECG, Blood Pressure, SpO2 and ETCO2 Sterility Sterility: Hand Hygiene, Surgical Cap, Surgical Mask, Sterile Gloves and Chlorhexidine Sedation Given During Procedure Sedation Given (Indicate Dose Given): No Sedation given Patient Mental Status Patient Mental Status: Performed under general anesthesia Nerve Block 1st Nerve Block: Laterality: Bilateral Block Type: TAP Bilateral Ultrasound Image Saved?: Yes Needle / Catheter Used: 100mm SonoPlex II Local Anesthetic Bolus (Indicate Dose Given): Half of Total block solution given into each side, Bupivacaine 0.5% Dose:: 40 ml and Exparel Dose:: 20 ml Additives (Indicate Dose Given): None Ultrasound: Sterile probe cover and gel used Nerve Stimulator: Not Used Paresthesia: None Procedure Tolerated: No Complications and Patient tolerated well Procedure Outcome: Successful Performed By: Emanuel Pearson
[2023-07-30] MEDS: Norepinephrine in D5W 8 MG/250 ML BAG 15 MG IV (03:30)
[2023-07-30] MEDS: HYDROmorphone 2 MG/ML SYR 0.5 MG IVP (04:41)
[2023-07-30] MEDS: Lactated Ringers 500 ML IV (04:55)
[2023-07-30] MEDS: Normal Saline Flush 10 ML SYR IVP ×2 (06:13→08:39)
[2023-07-30] MEDS: Normal Saline 1,000 ML 100 ML IV (06:14)
[2023-07-30 06:24] LABS: HCT 38.4 % (36.0-46.0); HGB 12.3 g/dL (11.2-15.7); MCH 32.2 pg (27.0-33.0); MCV 101 fL (80-95); Platelet Count 236 10^3/uL (130-400); RBC 3.82 10^6/uL (3.93-5.22); RDW 15.6 % (11.7-14.6); RDW-SD 58.1 fL; WBC 4.16 10^3/uL (4.4-10.8)
[2023-07-30 06:32] LABS: Anion Gap 10.6 mmol/L (3-11); BUN 22 mg/dL (7-18); CO2 21.4 mmol/L (21.0-32.0); CREATININE 1.3 mg/dL (0.55-1.02); Chloride 108 mmol/L (98-107); Estimated GFR 42.35 (mL/min/1.73m2); Glucose 225 mg/dL (74-106); Sodium 140 mmol/L (136-145)
[2023-07-30 06:34] LABS: Lipase > 375 U/L (16-77)
[2023-07-30 06:39] LABS: Magnesium 1.7 mg/dL (1.8-2.4)
[2023-07-30] MEDS: Normal Saline 500 ML IV (06:55)
[2023-07-30 07:15] LABS: Absolute Basophil Count 0.04 10^3/uL (0.0-0.2); Absolute Lymphocyte Count 0.79 10^3/uL (1.2-3.4); Absolute Monocyte Count 0.29 10^3/uL (0.1-0.8); Absolute Neutrophil Count 2.83 10^3/uL (1.2-6.7); Atypical Lymphocytes % 8; Bands % 6; Metamyelocytes % 4; Myelocytes % 1
[2023-07-30 07:16] LABS: Diff Comment Manual Differential; MPV 9.8 fL (8.0-11.0); RBC Morphology Normal
--- NOTE | 2023-07-30 07:45 | RT.EKG_ITS ---
APPROVED REPORT Exam: Resting ECG Reason for Exam: v tach Patient Location: I HR:135 bpm ECG Measurements Heart Rate 135 AXIS AR 110 P 81 QRSd 68 QRS 10 QT 325 T -28 QTc 488 Conclusion Sinus tachycardia...rate> 99 Probable left atrial enlargement...P >50mS, <-0.10mV V1 Low voltage, extremity and precordial leads...extremity<0.5mV, precordial<1.0mV Borderline prolonged QT interval...QTc >485mS MOVEMENT ARTIFACT
[2023-07-30 07:56] LABS: ALT 27 U/L (14-59); AST 32 U/L (15-37); Albumin 1.7 g/dL (3.4-5.0); Alkaline Phosphatase 111 U/L (46-116); Bilirubin, Direct 0.1 mg/dL (0.0-0.2); Bilirubin, Total 0.3 mg/dL (0.2-1.0); Total Protein 4.4 g/dL (6.4-8.2)
[2023-07-30 07:59] LABS: Troponin I < 50 ng/L (<or=60)
[2023-07-30 08:22] LABS: Lactate 3.5 mmol/L (0.6-1.4)
[2023-07-30] MEDS: Pantoprazole 40 MG VIAL IVP (08:29)
[2023-07-30] MEDS: ACETAMINOPHEN 1,000 MG/100 ML BTL 400 MG IVPB (08:30)
--- NOTE | 2023-07-30 09:14 | INITIAL_ITS ---
Date of service: 07/30/23 Time of Service: 09:14 Care Management Initial Assmt Initial Assessment REASON FOR HOSPITALIZATION:: peritonitis PREVIOUS FUNCTIONAL STATUS/SOCIAL/FAMILY SUPPORTS:: Lorie lives alone in an apartment in [place]. She has no relatives in the area and identifies her director of community education Yulissa Parker as her closest contact. CURRENT FUNCTIONAL STATUS:: Lorie had emergency surgery last night for peritonitis and was found to have a necrotic bowel. The affected area could not be resected. She has elected to change her code status to comfort care and is receiving morphine via infusion. At this time she is not arousable and appears to be resting comfortably. ADVANCE DIRECTIVES:: on file Has patient been provided with info about the portal/API?: Yes Did the patient sign up for the portal?: No CODE STATUS:: Full Code INSURANCE COVERAGE / FINANCIAL ISSUES:: Medicare Medicaid AD PRIMARY CARE PHYSICIAN:: Josy Thomas PATIENT/FAMILY EDUCATION NEEDS:: end of life care TRANSPORTATION:: to be determined by disposition PLAN:: Lorie has had emergency bowel surgery for peritonitis and is critically ill in the ICU. She was a full code for surgery but has since decided to change her code status to comfort measures. CM will follow and support Lorie . She will likely remain at [facility] for [facility] care[facility] All Active Problems (Updated 07/30/23 @ 14:40 by Precious Yanez NP) Massive necrosis of intestine (Acute) Comfort measures only status (Acute) Small bowel infarction (Acute) S/P exploratory laparotomy (Acute) Hemodynamic instability (Acute) Requiring blood pressure support with norepinephrine Ventricular tachycardia (paroxysmal) (Acute) Septic shock (Acute) Hypotension after procedure (Acute) Small bowel obstruction (Acute) Peritonitis (acute) generalized (Acute) Dupuytren's contracture of right hand (Acute) Dupuytren's contracture of left hand (Acute) Need for home health care (Acute) Rib pain (Acute) Fall (Acute) Acute UTI (Acute) Accidental fall from bed (Chronic) recurrent, falls frequently at home. Dupuytren's contracture of both hands (Acute) Gastroparesis (Acute) Hypoalbuminemia due to protein-calorie malnutrition (Acute) Type 2 diabetes mellitus with complication, without long-term current use of insulin (Chronic 12/02/17) Hyperlipidemia (Chronic) Vitamin D deficiency (Chronic 08/11/12) Cervical spondylosis (Chronic 02/11/14) Multiple sclerosis (Chronic) secondary progressive HTN (hypertension) (Acute) Vitamin B12 deficiency (Chronic) SHERRELL (generalized anxiety disorder) (Chronic) Depression (Chronic) Chronic low back pain (Acute) Monocular diplopia (Chronic) Mild cognitive impairment (Acute) Walker as ambulation aid (Chronic) uses in her apartment Uses wheelchair (Chronic) when out of her apartment motorized Urinary incontinence, mixed (Acute) uses adult diapers Fecal incontinence (Acute) Osteoarthritis of carpometacarpal joint of left thumb (Acute) Tobacco dependence due to cigarettes (Acute) Lung nodule, solitary (Acute) 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 Nephrolithiasis while on Topamax Anemia in chronic kidney disease SBO (small bowel obstruction) multiple; last May 2018 Osteoporosis (02/03/14) bone density scan 2013; treated with alendronate x 5 years, discontinued 02/2021 Migraine headache without aura (01/31/15) Tenosynovitis, de Quervain left sided Surgical History S/P trigger finger release Status post total right knee replacement Status post de Quervain's release surgery Hx of arthroscopy of right knee History of bowel resection H/O hemorrhoidectomy Hx of hysterectomy History of repair of hiatal hernia paproscopic repair History of cataract surgery Family History Mother , AGE 87 Diabetes Stroke Father , AGE 83 lung cancer Cancer Heart disease CABG x 4 Brother , AGE 70 motor vehicle crash Motor vehicle accident Brother Family estrangement Brother No problems noted. Daughter Family estrangement ok relationship Daughter Family estrangement emotional estrangement Social History Smoking/Tobacco Use Status: Current every day Tobacco Type: cigarettes Tobacco: How many years used: 60 Quit status: not considering quitting Second Hand Exposure: Yes Counseling given: provider counseling Smoking risk assessment performed?: Yes Alcohol Intake: never Drug use: Never Substance use type: does not use Caregiver/Support person: Yes (has director long term care home caregiver faraz [id number]) Details: lives in [facility] apartment Household members: none Housing: apartment Number of Children: 2 number of grandchildren: 6 Communication Needs: Hard of Hearing and Corrective Lenses Education Level: high school Do you need help understanding health information?: Rarely 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 Pets and animals: No Sexually active: No Do you think of yourself as: straight/heterosexual Current gender identity: female What is your relationship status?: How often do you talk on the phone with friends or family?: never How often do you get together with friends or relatives?: never How often do you attend anabaptism or buddhism services?: decline to answer Do you belong to any clubs or organized social groups?: no Panel score (0-1 are the most socially isolated patients): 0 What type of physical activity do you participate in: none Duration: < 15 minutes/day Frequency: daily Marilee/Baptism: Judaism Special marilee needs: No Seatbelt use: always Helmet use: No Drive intox or ride w/intox over the road driver: No Working smoke detector in home: Yes Fire extinguisher in home: Yes Do you feel safe at home: Yes Do you feel safe in your relationship?: Yes
--- NOTE | 2023-07-30 09:48 | PCNE_ITS ---
Date of service: 07/30/23 Time of Service: 09:00 History of Present Illness Narrative: Ms. Stover is a 77 y/o F currently inpatient in ICU at [facility] 2/2 small bowel necrosis; PMHx sig for PMHx sig for DM, MS, migraines, depression, lung nodule; h/o SBO w/adhesions removed last year at [facility] Hospital course: presented to ED on 07/29 w/acute abd pain, work up found small bowel necrosis w/distention in duodenum; surgical consult indicates patient's preference for proceeding with surgery w/preference for switching code status to full code and LST; unfortunately surgery was unable to access or repair necrotic tissue. She was transferred to the ICU pending decision for transfer to tertiary facility vs transition to ENVIRONMENTAL PROTECTION OFFICER; Jolanta has been minimally responsive, unable to hold conversations, but able to answer w/one to two words - PC consult to assess patient's GOC, capacity and next steps Jolanta is aware she is in the hospital, she knows she is there because of stomach issues, she knows she had surgery and it did not work. She does not want further surgery, she is aware she will as a result of this. She would like her care focused around comfort. Jolanta's previously completed COLST indicates a preference for DNR/I, AD indicates would only want treatment to sustain life only if able to communicate w/friends/family, be able to care for self, live w/o incapacitating pain, be conscious and lowe of surroundings. She would not want to be in a retirement. Her last dose of hydromorphone was at 0445. nerve block in place; staff report pain controlled, no grimacing or groaning, did receive apap this morning Assessment and Plan Assessment and plan (1) Small bowel obstruction: Status: Acute Assessment and plan: Jolanta has opted for no further surgery or treatment for SBO/nectrotic bowel; does not wish to be transferred will transition to ENVIRONMENTAL PROTECTION OFFICER (2) Peritonitis (acute) generalized: Status: Acute (3) Chronic low back pain: Status: Acute (4) Palliative care patient: Assessment and plan: PC review of previously completed AD, see HPI - at this time Jolanta is not and will not be able to care for self for foreseeable future, is having significant most likely incapacitating pain (currently has nerve block), and cannot communicate with friends/family; previously completed COLST form indicates preference for DNR/I, no tranfer, limited abx, no FT, trial IVF - limited interventions PC will continue to follow Ms. Stover throughout her stay at [facility], through [facility], which is anticipated to take place during this hospitalization (5) Comfort measures only status: Status: Acute Assessment and plan: Jolanta had capacity to make her own decisions, her decision is to not be transfers for further surgery and focus on comfort; she is aware she will from her current illness. Jolanta will transition to hospitalist service, ENVIRONMENTAL PROTECTION OFFICER order set to be placed by Dr. Marr per her AD she would like limited visitors, and would like TV w/soap operas for comfort; she denies visitors w/Sample Sawyer during today's visit; Review of Systems Narrative: as per HPI PFSH All Active Problems (Updated 07/30/23 @ 10:28 by Pearl Nelson NP) Comfort measures only status (Acute) Small bowel infarction (Acute) S/P exploratory laparotomy (Acute) Hemodynamic instability (Acute) Requiring blood pressure support with norepinephrine Ventricular tachycardia (paroxysmal) (Acute) Septic shock (Acute) Hypotension after procedure (Acute) Small bowel obstruction (Acute) Peritonitis (acute) generalized (Acute) Dupuytren's contracture of right hand (Acute) Dupuytren's contracture of left hand (Acute) Need for home health care (Acute) Rib pain (Acute) Fall (Acute) Acute UTI (Acute) Accidental fall from bed (Chronic) recurrent, falls frequently at home. Dupuytren's contracture of both hands (Acute) Gastroparesis (Acute) Hypoalbuminemia due to protein-calorie malnutrition (Acute) Type 2 diabetes mellitus with complication, without long-term current use of insulin (Chronic 12/02/17) Hyperlipidemia (Chronic) Vitamin D deficiency (Chronic 08/11/12) Cervical spondylosis (Chronic 02/11/14) Multiple sclerosis (Chronic) secondary progressive HTN (hypertension) (Acute) Vitamin B12 deficiency (Chronic) SHERRELL (generalized anxiety disorder) (Chronic) Depression (Chronic) Chronic low back pain (Acute) Monocular diplopia (Chronic) Mild cognitive impairment (Acute) Walker as ambulation aid (Chronic) uses in her apartment Uses wheelchair (Chronic) when out of her apartment motorized Urinary incontinence, mixed (Acute) uses adult diapers Fecal incontinence (Acute) Osteoarthritis of carpometacarpal joint of left thumb (Acute) Tobacco dependence due to cigarettes (Acute) Lung nodule, solitary (Acute) 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 Nephrolithiasis while on Topamax Anemia in chronic kidney disease SBO (small bowel obstruction) multiple; last May 2018 Osteoporosis (02/03/14) bone density scan 2013; treated with alendronate x 5 years, discontinued 02/2021 Migraine headache without aura (01/31/15) Tenosynovitis, de Quervain left sided Surgical History S/P trigger finger release Status post total right knee replacement Status post de Quervain's release surgery Hx of arthroscopy of right knee History of bowel resection H/O hemorrhoidectomy Hx of hysterectomy History of repair of hiatal hernia paproscopic repair History of cataract surgery Family History Mother , AGE 87 Diabetes Stroke Father , AGE 83 lung cancer Cancer Heart disease CABG x 4 Brother , AGE 70 motor vehicle crash Motor vehicle accident Brother Family estrangement Brother No problems noted. Daughter Family estrangement ok relationship Daughter Family estrangement emotional estrangement Social History Smoking/Tobacco Use Status: Current every day Tobacco Type: cigarettes Tobacco: How many years used: 60 Quit status: not considering quitting Second Hand Exposure: Yes Counseling given: provider counseling Smoking risk assessment performed?: Yes Alcohol Intake: never Drug use: Never Substance use type: does not use Caregiver/Support person: Yes (has longterm home caregiver faraz [id number]) Details: lives in [facility] Household members: none Housing: apartment Number of Children: 2 number of grandchildren: 6 Communication Needs: Hard of Hearing and Corrective Lenses Education Level: high school Do you need help understanding health information?: Rarely 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 Pets and animals: No Sexually active: No Do you think of yourself as: straight/heterosexual Current gender identity: female What is your relationship status?: How often do you talk on the phone with friends or family?: never How often do you get together with friends or relatives?: never How often do you attend lutheran or holiness services?: decline to answer Do you belong to any clubs or organized social groups?: no Panel score (0-1 are the most socially isolated patients): 0 What type of physical activity do you participate in: none Duration: < 15 minutes/day Frequency: daily Marilee/Voodoo: Scientologist Special marilee needs: No Seatbelt use: always Helmet use: No Drive intox or ride w/intox cement truck driver: No Working smoke detector in home: Yes Fire extinguisher in home: Yes Do you feel safe at home: Yes Do you feel safe in your relationship?: Yes Exam Narrative Exam Narrative: General: older adult female, lying in ICU bed, NG tube w/brown clear discharge in tube; eyes closed, no acute distress, no grimacing or groaning HEENT: atraumatic, normocephalic, hearing WNL Resp: even and unlabored, no audible wheezing Ext: hands cool to touch, radial pulse 2+ Psych: lethargic, able to mouth one word THEODORE - Aid to Capacity Evaluation 1. Able to understand medical problem: aware in hospital, with stomach issues - yes 2. Able to understand proposed treatment: yes to awareness of having surgery, that it did not work, would need surgery if wanting treatment - yes 3. Able to understand alternative to proposed treatment: aware other treatment would be focus on comfort - yes 4. Able to understand option of refusing proposed Tx: aware can not get surgery - yes 5. Able to appreciate reasonably foreseeable consequences of accepting proposed treatment: does not want to be transferred for surgery, does not want more treatment - unsure 6. Able to appreciate reasonably foreseeable consequences of refusing proposed treatment: if don't have transfer/surgery, aware will - yes 7. Person decision affected by depression - no/unsure; Person's decision affected by delusion/psychosis - no SCORE: Definitely to probably capable Results Last Vital Signs Temp 97.7 F 07/30/23 07:21 Pulse 127 H 07/30/23 04:01 Resp 18 07/30/23 09:30 BP 121/56 L 07/30/23 07:21 Pulse Ox 94 07/30/23 09:30 Labs 07/30/23 06:00 07/30/23 06:00 Labs: Laboratory Results - last 24 hr 07/29/23 07/29/23 07/29/23 19:40 21:14 21:45 WBC 15.91 H RBC 4.12 Hgb 13.3 Hct 40.8 MCV 99 H MCH 32.3 MCHC 32.6 RDW 15.4 H Plt Count 312 MPV 9.2 Immature Gran % 0.7 Neutrophils % 75.0 Band Neutrophils % Lymphocytes % 20.4 Atypical Lymphs % Monocytes % 3.3 Eosinophils % 0.2 Basophils % 0.4 Metamyelocytes % Myelocytes % Nucleated RBC % 0.0 Absolute Neutrophils 11.93 H Absolute Lymphocytes 3.25 Absolute Monocytes 0.53 Absolute Eosinophils 0.03 Absolute Basophils 0.06 RBC Morphology VBG Lactate 4.8 H* Sodium 141 Potassium 3.8 Chloride 104 Carbon Dioxide 19.6 L Anion Gap 17.4 H BUN 19 H Creatinine 1.1 H Est GFR (CKD-EPI 2020) 51.75 Glucose 259 H Calcium 9.5 Magnesium 1.3 L Total Bilirubin 0.3 Conjugated Bilirubin AST 32 ALT 31 Alkaline Phosphatase 172 H Troponin I Total Protein 6.3 L Albumin 2.7 L Lipase Procalcitonin < 0.1 Urine Color Yellow Urine Clarity Clear Urine pH 5.5 Ur Specific [place] 1.010 Urine Protein Negative Urine Ketones 15 H Urine Blood Negative Urine Nitrite Negative Urine Bilirubin Negative Urine Urobilinogen 0.2 Ur Leukocyte Esterase Negative Urine Glucose 100 H Patient ABO/Rh O Positive Antibody Screen NEGATIVE 07/30/23 07/30/23 06:00 08:15 WBC 4.16 L RBC 3.82 L Hgb 12.3 Hct 38.4 MCV 101 H MCH 32.2 MCHC 32.0 RDW 15.6 H Plt Count 236 MPV 9.8 Immature Gran % 0.0 Neutrophils % 62.0 Band Neutrophils % 6 Lymphocytes % 11.0 Atypical Lymphs % 8 Monocytes % 7.0 Eosinophils % 0.0 Basophils % 1.0 Metamyelocytes % 4 Myelocytes % 1 Nucleated RBC % 1.0 H Absolute Neutrophils 2.83 Absolute Lymphocytes 0.79 L Absolute Monocytes 0.29 Absolute Eosinophils 0.00 Absolute Basophils 0.04 RBC Morphology Normal VBG Lactate 3.5 H* Sodium 140 Potassium 4.0 Chloride 108 H Carbon Dioxide 21.4 Anion Gap 10.6 BUN 22 H Creatinine 1.3 H Est GFR (CKD-EPI 2020) 42.35 Glucose 225 H Calcium 8.0 L Magnesium 1.7 L Total Bilirubin 0.3 Conjugated Bilirubin 0.1 AST 32 ALT 27 Alkaline Phosphatase 111 Troponin I < 50 Total Protein 4.4 L Albumin 1.7 L Lipase > 375 H Procalcitonin Urine Color Urine Clarity Urine pH Ur Specific [place] Urine Protein Urine Ketones Urine Blood Urine Nitrite Urine Bilirubin Urine Urobilinogen Ur Leukocyte Esterase Urine Glucose Patient ABO/Rh Antibody Screen
--- NOTE | 2023-07-30 10:00 | W.PM.PROGNOT ---
Date of Service Date of service: 07/30/23 Time of Service: 08:00 Assessment and Plan Assessment and plan (1) Small bowel obstruction: Status: Acute Assessment and plan: Jolanta is status post exploratory laparotomy for peritonitis and was found to have necrotic duodenum and third portion. Patient was waking up slightly when I was in the room with her. I tried to have several conversations with her to figure out what she wanted moving forward. She was a DNR/DNI prior to surgery but then became a full code for surgery. Although she does open her eyes I am not sure that she is comprehending everything that I am telling her right now. I think she still quite tired and may be influenced by the narcotic given at 430. I will continue to resuscitate the patient. I will attempt to call [facility] and [facility] again to see if there is a possibility of transferring the patient if she decides that she would like to move forward with another surgery. I have also spoken to and [facility] for palliative consult. They will be coming up as soon as possible to chat with the patient and see what her wishes are. Labs do show that her lactate is still quite elevated at 3.4. Her CBC is otherwise unremarkable. (2) Peritonitis (acute) generalized: Status: Acute Subjective Subjective Interval history since last seen: Jolanta is postop day 0 from exploratory laparotomy for small bowel obstruction with peritonitis. I discussed the case with Dr. Almeida who was the operating surgeon. Dr. 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 There is a lot of adhesions between the large intestine and the abdominal wall. She did eventually find the duodenum which she noted to be necrotic. The necrosis was at the region of the entrance of the common bile duct and pancreatic duct. Unfortunately this could not be resected. She did end up with a colostomy and fistula in order to decompress her large intestine which was quite dilated. Patient has been hypotensive throughout the night on 22 mics of Genaro-Synephrine. She was able to get extubated. Per nursing staff the last time she had any pain medication was at 4:30 in the morning. Patient is arousable but does not really keep her eyes open for very long. She continues to be tachycardic and hypotensive this morning despite the Genaro-Synephrine. I did increase her IV fluids to 125 an hour to try to help. Her hands and feet are cold. Exam Resp Effort & Inspection: decreased respiratory effort Auscultation: clear to auscultation bilaterally Cardio Rate: tachycardic Rhythm: regular rhythm Other: EKG sinus tachycardia GI Other: soft, distended, TTP. Midline incision with wet to dry dressing Ostomy and fistula are congested but viable Objective Last Vital Signs Temp 97.7 F 07/30/23 07:21 Pulse 127 H 07/30/23 04:01 Resp 18 07/30/23 09:30 BP 121/56 L 07/30/23 07:21 Pulse Ox 94 07/30/23 09:30 Laboratory Results - last 24 hr 07/29/23 07/29/23 07/29/23 19:40 21:14 21:45 WBC 15.91 H RBC 4.12 Hgb 13.3 Hct 40.8 MCV 99 H MCH 32.3 MCHC 32.6 RDW 15.4 H Plt Count 312 MPV 9.2 Immature Gran % 0.7 Neutrophils % 75.0 Band Neutrophils % Lymphocytes % 20.4 Atypical Lymphs % Monocytes % 3.3 Eosinophils % 0.2 Basophils % 0.4 Metamyelocytes % Myelocytes % Nucleated RBC % 0.0 Absolute Neutrophils 11.93 H Absolute Lymphocytes 3.25 Absolute Monocytes 0.53 Absolute Eosinophils 0.03 Absolute Basophils 0.06 RBC Morphology VBG Lactate 4.8 H* Sodium 141 Potassium 3.8 Chloride 104 Carbon Dioxide 19.6 L Anion Gap 17.4 H BUN 19 H Creatinine 1.1 H Est GFR (CKD-EPI 2020) 51.75 Glucose 259 H Calcium 9.5 Magnesium 1.3 L Total Bilirubin 0.3 Conjugated Bilirubin AST 32 ALT 31 Alkaline Phosphatase 172 H Troponin I Total Protein 6.3 L Albumin 2.7 L Lipase Procalcitonin < 0.1 Urine Color Yellow Urine Clarity Clear Urine pH 5.5 Ur Specific [place] 1.010 Urine Protein Negative Urine Ketones 15 H Urine Blood Negative Urine Nitrite Negative Urine Bilirubin Negative Urine Urobilinogen 0.2 Ur Leukocyte Esterase Negative Urine Glucose 100 H Patient ABO/Rh O Positive Antibody Screen NEGATIVE 07/30/23 07/30/23 06:00 08:15 WBC 4.16 L RBC 3.82 L Hgb 12.3 Hct 38.4 MCV 101 H MCH 32.2 MCHC 32.0 RDW 15.6 H Plt Count 236 MPV 9.8 Immature Gran % 0.0 Neutrophils % 62.0 Band Neutrophils % 6 Lymphocytes % 11.0 Atypical Lymphs % 8 Monocytes % 7.0 Eosinophils % 0.0 Basophils % 1.0 Metamyelocytes % 4 Myelocytes % 1 Nucleated RBC % 1.0 H Absolute Neutrophils 2.83 Absolute Lymphocytes 0.79 L Absolute Monocytes 0.29 Absolute Eosinophils 0.00 Absolute Basophils 0.04 RBC Morphology Normal VBG Lactate 3.5 H* Sodium 140 Potassium 4.0 Chloride 108 H Carbon Dioxide 21.4 Anion Gap 10.6 BUN 22 H Creatinine 1.3 H Est GFR (CKD-EPI 2020) 42.35 Glucose 225 H Calcium 8.0 L Magnesium 1.7 L Total Bilirubin 0.3 Conjugated Bilirubin 0.1 AST 32 ALT 27 Alkaline Phosphatase 111 Troponin I < 50 Total Protein 4.4 L Albumin 1.7 L Lipase > 375 H Procalcitonin Urine Color Urine Clarity Urine pH Ur Specific [place] Urine Protein Urine Ketones Urine Blood Urine Nitrite Urine Bilirubin Urine Urobilinogen Ur Leukocyte Esterase Urine Glucose Patient ABO/Rh Antibody Screen Time Spent with Patient Time Spent with Patient: 35-49 minutes Time was spent: obtaining and/or reviewing separately otained hiistory, ordering medications,tests, procedures and counseling the patient
--- NOTE | 2023-07-30 10:00 | W.PM.PROGNOT ---
Date of Service Date of service: 07/30/23 Time of Service: 10:00 Assessment and Plan Assessment and plan (1) Hypotension after procedure: Status: Acute (2) Septic shock: Status: Acute Assessment and plan: Patient was seen by and with palliative care. It was determined that patient wants to be comfort measures only, and does not want to pursue any further surgery. Patient will be placed on comfort measures and her norEpi will be stopped per her wishes. Her likelihood of survival of surgery would be minimal. (3) Small bowel obstruction: Status: Acute (4) Fall: Status: Acute (5) Acute UTI: Status: Acute (6) Accidental fall from bed: Status: Chronic Qualifiers: Encounter type: sequela Qualified Code(s): W06.XXXS - Fall from bed, sequela (7) Gastroparesis: Status: Acute (8) Hypoalbuminemia due to protein-calorie malnutrition: Status: Acute (9) Type 2 diabetes mellitus with complication, without long-term current use of insulin: Status: Chronic (10) Hyperlipidemia: Status: Chronic Qualifiers: Hyperlipidemia type: pure hypercholesterolemia Qualified Code(s): E78.00 - Pure hypercholesterolemia, unspecified (11) Multiple sclerosis: Status: Chronic (12) HTN (hypertension): Status: Acute Qualifiers: Hypertension type: primary hypertension Qualified Code(s): I10 - Essential (primary) hypertension (13) Urinary incontinence, mixed: Status: Acute (14) Fecal incontinence: Status: Acute (15) Diverticulosis: (16) Anemia in chronic kidney disease: (17) SBO (small bowel obstruction): (18) Osteoporosis: (19) Osteoarthritis of carpometacarpal joint of left thumb: Status: Acute Qualifiers: Osteoarthritis type: primary Qualified Code(s): M18.12 - Unilateral primary osteoarthritis of first carpometacarpal joint, left hand (20) Tobacco dependence due to cigarettes: Status: Acute (21) Ventricular tachycardia (paroxysmal): Status: Acute (22) Hemodynamic instability: Status: Acute (23) S/P exploratory laparotomy: Status: Acute (24) Small bowel infarction: Status: Acute Subjective Subjective Interval history since last seen: Pt is arousalbe to voice stimulus. she c/o pain. I attempted to d/w her findings at the time of surgery and how dire her prognosis is. I was hoping that decompression of the colo would allow for increased blood flow to the duodenum, and vaiabliity. However, on presentation today, her BP continues to require pressure support and continued signs of septic shock. Labs are improved, however, Clinically pt continues to decline. Prior to this hospitalization, pt ws a DNR/DNI. She was having difficulty at home w/ falling/balance/not eating and adult failure to thrive. For the surgery, we did rescind the DNR/DNI and made her a full code. I attempted to d/w pt what she wants her goals of care to be. However, I don't think pt was able to grasp what I was trying to communicate. Palliative was consulted for better clarification. Pt has poor options for any further surgery, she has had an extensive amount of small bowel removed in 2021. 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 From her continued septic state, it does not not appear that duodenum is viable and she would need a resection of the duodenum; reimplantation of her bile ducts, and a feeding tube. She is currently hemodynamically unstable and high risk for transfer. [facility] and [facility] are closed to transfers Palliative care is being consulted to further goals of care, and if she wishes transfer and further surgery. The likelihood of her survival to discharge is minimal. 45 mins spent with the patient today. Objective Last Vital Signs Temp 36.5 C 07/30/23 07:21 Pulse 127 H 07/30/23 04:01 Resp 18 07/30/23 09:30 BP 121/56 L 07/30/23 07:21 Pulse Ox 94 07/30/23 09:30 Laboratory Results - last 24 hr 07/29/23 07/29/23 07/29/23 19:40 21:14 21:45 WBC 15.91 H RBC 4.12 Hgb 13.3 Hct 40.8 MCV 99 H MCH 32.3 MCHC 32.6 RDW 15.4 H Plt Count 312 MPV 9.2 Immature Gran % 0.7 Neutrophils % 75.0 Band Neutrophils % Lymphocytes % 20.4 Atypical Lymphs % Monocytes % 3.3 Eosinophils % 0.2 Basophils % 0.4 Metamyelocytes % Myelocytes % Nucleated RBC % 0.0 Absolute Neutrophils 11.93 H Absolute Lymphocytes 3.25 Absolute Monocytes 0.53 Absolute Eosinophils 0.03 Absolute Basophils 0.06 RBC Morphology VBG Lactate 4.8 H* Sodium 141 Potassium 3.8 Chloride 104 Carbon Dioxide 19.6 L Anion Gap 17.4 H BUN 19 H Creatinine 1.1 H Est GFR (CKD-EPI 2020) 51.75 Glucose 259 H Calcium 9.5 Magnesium 1.3 L Total Bilirubin 0.3 Conjugated Bilirubin AST 32 ALT 31 Alkaline Phosphatase 172 H Troponin I Total Protein 6.3 L Albumin 2.7 L Lipase Procalcitonin < 0.1 Urine Color Yellow Urine Clarity Clear Urine pH 5.5 Ur Specific [place] 1.010 Urine Protein Negative Urine Ketones 15 H Urine Blood Negative Urine Nitrite Negative Urine Bilirubin Negative Urine Urobilinogen 0.2 Ur Leukocyte Esterase Negative Urine Glucose 100 H Patient ABO/Rh O Positive Antibody Screen NEGATIVE 07/30/23 07/30/23 06:00 08:15 WBC 4.16 L RBC 3.82 L Hgb 12.3 Hct 38.4 MCV 101 H MCH 32.2 MCHC 32.0 RDW 15.6 H Plt Count 236 MPV 9.8 Immature Gran % 0.0 Neutrophils % 62.0 Band Neutrophils % 6 Lymphocytes % 11.0 Atypical Lymphs % 8 Monocytes % 7.0 Eosinophils % 0.0 Basophils % 1.0 Metamyelocytes % 4 Myelocytes % 1 Nucleated RBC % 1.0 H Absolute Neutrophils 2.83 Absolute Lymphocytes 0.79 L Absolute Monocytes 0.29 Absolute Eosinophils 0.00 Absolute Basophils 0.04 RBC Morphology Normal VBG Lactate 3.5 H* Sodium 140 Potassium 4.0 Chloride 108 H Carbon Dioxide 21.4 Anion Gap 10.6 BUN 22 H Creatinine 1.3 H Est GFR (CKD-EPI 2020) 42.35 Glucose 225 H Calcium 8.0 L Magnesium 1.7 L Total Bilirubin 0.3 Conjugated Bilirubin 0.1 AST 32 ALT 27 Alkaline Phosphatase 111 Troponin I < 50 Total Protein 4.4 L Albumin 1.7 L Lipase > 375 H Procalcitonin Urine Color Urine Clarity Urine pH Ur Specific [place] Urine Protein Urine Ketones Urine Blood Urine Nitrite Urine Bilirubin Urine Urobilinogen Ur Leukocyte Esterase Urine Glucose Patient ABO/Rh Antibody Screen Time Spent with Patient Time Spent with Patient: 35-49 minutes Time was spent: preparing to see the patient(eg.review tests), obtaining and/or reviewing separately otained hiistory, ordering medications,tests, procedures, referring, communicating with other health care transport nurse, indepentently interpreting results, counseling the patient and care coordination
--- NOTE | 2023-07-30 10:06 | W.PM.PROGNOT ---
Date of Service Date of service: 07/30/23 Time of Service: 10:59 Assessment and Plan Assessment and plan (1) Comfort measures only status: Status: Acute Assessment and plan: - Patient is status post ex lap for peritonitis and was found to have necrotic duodenum of the third portion -This was done by general surgeon Dr. Almeida (please see surgery notes for complete details) -However, given intraoperative findings, it was determined that there were no other surgical options for the patient -Palliative care discussed with patient, he was determined that she had the ability to make medical decisions and understood the severity of her condition and ultimately decided to transition to comfort measures only -Stop checking all vital signs -Do not awaken or bother patient for anything other than comfort directed care -Start morphine drip -PRN ativan and haldol -Scopolamine patch placed (2) Small bowel infarction: Status: Acute (3) S/P exploratory laparotomy: Status: Acute (4) Septic shock: Status: Acute (5) Hypotension after procedure: Status: Acute Subjective Subjective Interval history since last seen: Patient is unable to completely communicate though she is stating that she is in pain. Exam Narrative Exam Narrative: Elderly female laying in bed and moderate distress due to pain. Is moaning and is able to state that she is in pain, work breathing appears normal Objective Last Vital Signs Temp 97.7 F 07/30/23 07:21 Pulse 127 H 07/30/23 04:01 Resp 18 07/30/23 09:30 BP 121/56 L 07/30/23 07:21 Pulse Ox 94 07/30/23 09:30 Laboratory Results - last 24 hr 07/29/23 07/29/23 07/29/23 19:40 21:14 21:45 WBC 15.91 H RBC 4.12 Hgb 13.3 Hct 40.8 MCV 99 H MCH 32.3 MCHC 32.6 RDW 15.4 H Plt Count 312 MPV 9.2 Immature Gran % 0.7 Neutrophils % 75.0 Band Neutrophils % Lymphocytes % 20.4 Atypical Lymphs % Monocytes % 3.3 Eosinophils % 0.2 Basophils % 0.4 Metamyelocytes % Myelocytes % Nucleated RBC % 0.0 Absolute Neutrophils 11.93 H Absolute Lymphocytes 3.25 Absolute Monocytes 0.53 Absolute Eosinophils 0.03 Absolute Basophils 0.06 RBC Morphology VBG Lactate 4.8 H* Sodium 141 Potassium 3.8 Chloride 104 Carbon Dioxide 19.6 L Anion Gap 17.4 H BUN 19 H Creatinine 1.1 H Est GFR (CKD-EPI 2020) 51.75 Glucose 259 H Calcium 9.5 Magnesium 1.3 L Total Bilirubin 0.3 Conjugated Bilirubin AST 32 ALT 31 Alkaline Phosphatase 172 H Troponin I Total Protein 6.3 L Albumin 2.7 L Lipase Procalcitonin < 0.1 Urine Color Yellow Urine Clarity Clear Urine pH 5.5 Ur Specific [place] 1.010 Urine Protein Negative Urine Ketones 15 H Urine Blood Negative Urine Nitrite Negative Urine Bilirubin Negative Urine Urobilinogen 0.2 Ur Leukocyte Esterase Negative Urine Glucose 100 H Patient ABO/Rh O Positive Antibody Screen NEGATIVE 07/30/23 07/30/23 06:00 08:15 WBC 4.16 L RBC 3.82 L Hgb 12.3 Hct 38.4 MCV 101 H MCH 32.2 MCHC 32.0 RDW 15.6 H Plt Count 236 MPV 9.8 Immature Gran % 0.0 Neutrophils % 62.0 Band Neutrophils % 6 Lymphocytes % 11.0 Atypical Lymphs % 8 Monocytes % 7.0 Eosinophils % 0.0 Basophils % 1.0 Metamyelocytes % 4 Myelocytes % 1 Nucleated RBC % 1.0 H Absolute Neutrophils 2.83 Absolute Lymphocytes 0.79 L Absolute Monocytes 0.29 Absolute Eosinophils 0.00 Absolute Basophils 0.04 RBC Morphology Normal VBG Lactate 3.5 H* Sodium 140 Potassium 4.0 Chloride 108 H Carbon Dioxide 21.4 Anion Gap 10.6 BUN 22 H Creatinine 1.3 H Est GFR (CKD-EPI 2020) 42.35 Glucose 225 H Calcium 8.0 L Magnesium 1.7 L Total Bilirubin 0.3 Conjugated Bilirubin 0.1 AST 32 ALT 27 Alkaline Phosphatase 111 Troponin I < 50 Total Protein 4.4 L Albumin 1.7 L Lipase > 375 H Procalcitonin Urine Color Urine Clarity Urine pH Ur Specific [place] Urine Protein Urine Ketones Urine Blood Urine Nitrite Urine Bilirubin Urine Urobilinogen Ur Leukocyte Esterase Urine Glucose Patient ABO/Rh Antibody Screen Time Spent with Patient Time Spent with Patient: >50 minutes Time was spent: preparing to see the patient(eg.review tests), obtaining and/or reviewing separately otained hiistory, ordering medications,tests, procedures, referring, communicating with other health pharmacy customer care specialist, indepentently interpreting results, counseling the patient and care coordination
--- NOTE | 2023-07-30 10:47 | CHAPLAIN ---
Jolanta had surgery last night. This morning she is not doing well and was changed to comfort measures. She has not listed a HCA, and stated in her AD and COLST that she did not want to name one. There is also no one listed on her HIPPA form to contact. Pearl Nelson NP, from [facility] was in to visit Jolanta. Jolanta is responding minimally and indicated with one word answers and by squeezing Pearl's hand that she knew she was in the hospital, knew she'd had surgery and understands that she likely wouldn't survive more surgery and doesn't want more surgery. She agreed to have care directed toward her comfort. A few minutes later I asked Jolanta if she wanted company in the room with her as we have comfort care volunteers, but she indicated no to this offer. I will continue to visit Jolanta today.
[2023-07-30] MEDS: LORazepam 2 MG/ML VIAL IV/SC (11:32)
[2023-07-30] MEDS: Scopolamine 1 MG/3 DAYS PATCH TD (11:46)
--- NOTE | 2023-07-30 11:53 | PHA.REVIEW2 ---
Pharmacy Admission Review Admission Clinical Review Admission Pharmacy Review: (Updated 07/30/23 @ 10:28 by Pearl Nelson NP) Comfort measures only status (Acute) Small bowel infarction (Acute) S/P exploratory laparotomy (Acute) Hemodynamic instability (Acute) Ventricular tachycardia (paroxysmal) (Acute) Septic shock (Acute) Hypotension after procedure (Acute) Small bowel obstruction (Acute) Peritonitis (acute) generalized (Acute) Fall (Acute) Acute UTI (Acute) Gastroparesis (Acute) Hypoalbuminemia due to protein-calorie malnutrition (Acute) HTN (hypertension) (Acute) Chronic low back pain (Acute) Urinary incontinence, mixed (Acute) Fecal incontinence (Acute) Osteoarthritis of carpometacarpal joint of left thumb (Acute) Tobacco dependence due to cigarettes (Acute) Penicillins Allergy (Intermediate, Unverified 07/29/23 21:30) Skin Rash aspirin Allergy (Unverified 07/29/23 21:30) miconazole Allergy (Unverified 07/29/23 21:30) Skin Rash povidone-iodine Allergy (Unverified 07/29/23 21:30) Skin Rash Sulfa (Sulfonamide Antibiotics) Allergy (Unverified 07/29/23 21:30) Skin Rash Resuscitation Status DNR/DNI Height 5 ft 4 in Weight 65.2 kg Pharmacy Admission Review Renal Dosing Renal Dosing: BUN 22 mg/dL (7-18) H 07/30/23 06:00 Creatinine 1.3 mg/dL (0.55-1.02) H 07/30/23 06:00 Medications needing adjustments: Reviewed (CrCl 36.55 mL/mi) Anticoagulation Anticoagulation: Hgb 12.3 g/dL (11.2-15.7) 07/30/23 06:00 Hct 38.4 % (36.0-46.0) 07/30/23 06:00 Plt Count 236 10^3/uL (130-400) 07/30/23 06:00 Creatinine 1.3 mg/dL (0.55-1.02) H 07/30/23 06:00 DVT 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: 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) Opiate Usage Evaluate Pain Scale/Pains Meds: Reviewed (LABORATORY MANAGER order set) Scheduled Bowel Reg ordered if on Opiates?: No Relevant Labs Relevant Labs: Sodium 140 mmol/L (136-145) 07/30/23 06:00 Potassium 4.0 mmol/L (3.5-5.1) 07/30/23 06:00 Chloride 108 mmol/L (98-107) H 07/30/23 06:00 Magnesium 1.7 mg/dL (1.8-2.4) L 07/30/23 06:00 Electrolytes, C-Reactive P, ESR: Reviewed Cardiac Review Cardiac Review: Troponin I < 50 ng/L (<or=60) 07/30/23 06:00 BP, HR, EF%: Reviewed (BP 121/56, HR 132) QTc Review QTc: Reviewed (434 from 08/02/22) IV to PO Switch IV Medications: Reviewed Home Meds Home Med List reviewed: Reviewed Relevent Home Meds Not ordered & why?: 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
--- NOTE | 2023-07-30 16:48 | CHAPLAIN ---
I went back to spend some time sitting with Jolanta. She seems comfortable. There were no signs of grimacing or pain that I could detect. She continued to breath steadily.
--- NOTE | 2023-07-30 17:35 | EXPE_ITS ---
Date of service: 07/30/23 Time of Service: 17:35 Discharge Plan Disposition Patient Disposition: Discharge Details Reason For Visit: necrotic duodeneum secondary to SBO Admit Date/Time: 07/30/23 02:41 Admit Provider: Kelley Almeida Attending Provider: Kelley Almeida Primary Care Provider: Josy Thomas Hospital Course Hospital Course: Patient was initially admitted to the general surgery service was taken to the operating room for what appeared to be a significant small bowel obstruction. However,. Patient had significant adhesions and necrotic duodenum (please see general surgery notes for complete details), however, postoperatively the patient remained on high-dose pressors, discussion was had with general surgery that there was no additional viable small bowel. Palliative care prolonged discussion with the patient who ultimately decided to transfer to comfort measures only. However, patient ultimately succumbed to her illness and on 07/30/2023 at 1720 Discharge Data Cause of : Septic shock Discharge Sum: Prov Provider Consults: 07/30/23 07:26 Hospitalist Consult [CONS] Stat Consultation Status:: Contact made by Clarification:: Manage/follow per spec. Reason for consult:: s/p ex lap/necrotic duodenum. Palliative Care Consult [CONS] Routine Consultation Status:: Follow-up needed Clarification:: Manage/follow per spec. Reason for consult:: pt s/p exploratorylap w/ necrotic duodenum. changed status to full 07/30/23 10:22 Pathology Assistant Consult [CONS] Routine Consultation Status:: Follow-up needed Clarification:: Manage/follow per spec. Reason for consult:: spirital needs Discharge Sum: Diag PCOD Cause of : Septic shock Contributing Factors (1) Hypotension after procedure: (2) Septic shock: (3) Small bowel obstruction: (4) Fall: (5) Acute UTI: (6) Accidental fall from bed: (7) Gastroparesis: (8) Hypoalbuminemia due to protein-calorie malnutrition: (9) Type 2 diabetes mellitus with complication, without long-term current use of insulin: (10) Hyperlipidemia: (11) Multiple sclerosis: (12) HTN (hypertension): (13) Urinary incontinence, mixed: (14) Fecal incontinence: (15) Diverticulosis: (16) Anemia in chronic kidney disease: (17) Osteoporosis: (18) Osteoarthritis of carpometacarpal joint of left thumb: (19) Tobacco dependence due to cigarettes: (20) Ventricular tachycardia (paroxysmal): (21) Hemodynamic instability: (22) S/P exploratory laparotomy: (23) Small bowel infarction: Discharge Sum: Summary Summary Details: Patient was initially admitted to the general surgery service was taken to the operating room for what appeared to be a significant small bowel obstruction. However,. Patient had significant adhesions and necrotic duodenum (please see general surgery notes for complete details), however, postoperatively the patient remained on high-dose pressors, discussion was had with general surgery that there was no additional viable small bowel. Palliative care prolonged discussion with the patient who ultimately decided to transfer to comfort measures only. However, patient ultimately succumbed to her illness and on 07/30/2023 at 1720 Additional Data Confirmation of as documented by pronouncing clinician: no pulse, no respirations, no heart sounds and pupils fixed and dilated Family: not available Attending/PCP notified?: No Attending Physician: Kelley Givens Was code activated?: No license examiner notified?: No Organ bank notified?: No Advance directives: Yes Hospice patient?: No
[2023-07-31 07:52] VITALS: BP 142/86; PULSE 116; RESP 24; TEMP 36.5; O2SAT 96
== END 2023-07-30 17:20 | disposition expired | DRG 329 ==
LOC: ER 18:42 → SUR 07-30 03:41 → ICU 07-30 03:48
PROVIDERS: Admitting Provider Surgery; Emergency Provider Nurse Practitioner Acute Care; PCP Family Medicine; Visit Provider Surgery
PROC: (CPT 49000; principal; 2023-07-29 21:40)
DX: K65.0 Generalized (acute) peritonitis (principal); A41.9 Sepsis, unspecified organism; K55.021 Focal (segmental) acute infarction of small intestine; R65.21 Severe sepsis with septic shock; E46 Unspecified protein-calorie malnutrition; N39.0 Urinary tract infection, site not specified; I47.29 Other ventricular tachycardia; E11.43 Type 2 diabetes mellitus with diabetic autonomic (poly)neuropathy; F41.1 Generalized anxiety disorder; I10 Essential (primary) hypertension; G35 Multiple sclerosis; M18.12 Unilateral primary osteoarthritis of first carpometacarpal joint, left hand; R15.9 Full incontinence of feces; F17.210 Nicotine dependence, cigarettes, uncomplicated; M54.50 Low back pain, unspecified; G89.29 Other chronic pain; W06.XXXA Fall from bed, initial encounter; Z79.84 Long term (current) use of oral hypoglycemic drugs; K31.84 Gastroparesis; E78.00 Pure hypercholesterolemia, unspecified; N39.46 Mixed incontinence; E11.22 Type 2 diabetes mellitus with diabetic chronic kidney disease; N18.9 Chronic kidney disease, unspecified; D63.1 Anemia in chronic kidney disease; M81.0 Age-related osteoporosis without current pathological fracture; J44.9 Chronic obstructive pulmonary disease, unspecified; R29.6 Repeated falls; E55.9 Vitamin D deficiency, unspecified; I12.9 Hypertensive chronic kidney disease with stage 1 through stage 4 chronic kidney disease, or unspecified chronic kidney disease; E53.8 Deficiency of other specified B group vitamins; F32.A Depression, unspecified; M47.812 Spondylosis without myelopathy or radiculopathy, cervical region; Z96.651 Presence of right artificial knee joint; Z51.5 Encounter for palliative care; Z66 Do not resuscitate; K66.0 Peritoneal adhesions (postprocedural) (postinfection); I95.81 Postprocedural hypotension
CPT/HCPCS: 44144; 00123; 36410; 36620; 76937; 80048; 80053; 80076; 83690; 84145; 86850; 86900; 86901; 87077; 96365; 96368; 96375; 96376; 99223; 99285; 74177; 81003; 83605; 83735; 84484; 85025; 87070; 87075; 87186; 87205; 93005; 93010; J0131; J0780; J1170; J1335; J2001; J2060; J2270; J2371; J2405; J3475; J3490